=== PATIENT | female | born 1945 | race Caucasian/White ===

== ENCOUNTER 2023-01-07 07:22 | Outpatient (OUT) | payer MEDICARE, OTHER, SELFPAY ==
--- NOTE | 2023-01-07 | MM_ITS ---
Patient: SHAHNAZ ADAMES Exam Date: 01/07/2023 : 1945 Gender:F Ordering : DR Dang Shannon M.D. Admission #: [id number] Family : Order #: [id number] CLICK HERE TO VIEW EXAM RADIOLOGY REPORT PROCEDURE: MM TOMOSYNTHESIS SCREENING BI COMPARISON: MG MAMM SCREEN LUZ W CAD, 03/21/2018. MG MAMM SCREEN 3D LUZ CAD, 07/25/2020. INDICATIONS: screening mammogram Calculator Name NCI Breast Cancer Risk Assessment Tool 5 Year Breast Cancer Risk 3.50% Lifetime Breast Cancer Risk 7.40% Personal Breast Cancer No Personal Ovarian Cancer No Treatments None Family Cancers Mother with breast cancer at age 79. LOCATION: [facility] BREAST COMPOSITION: Heterogeneously dense,which may obscure small masses. FINDINGS: DIAGNOSTIC CATEGORY 1--NEGATIVE. NO CHANGE FROM COMPARISON ASSESSMENT. Scattered benign-appearing calcifications are present. RIGHT BREAST: No significant suspicious finding. LEFT BREAST: No significant suspicious finding. RECOMMENDATIONS: ROUTINE MAMMOGRAM AND CLINICAL EVALUATION IN 12 MONTHS. PLEASE NOTE: A NORMAL MAMMOGRAM DOES NOT EXCLUDE THE POSSIBILITY OF BREAST CANCER. A CLINICALLY SUSPICIOUS PALPABLE LUMP SHOULD BE BIOPSIED. Dictated by: Rangel Whitman MD on 01/07/2023 at 08:00 Approved by: Rangel Whitman MD on 01/07/2023 at 08:00
[2023-01-07 07:58] LABS: Hematocrit 44.2 % (36.0-48.0); Hemoglobin 14.5 g/dL (12.0-16.0); Mean Corpuscular HGB Conc 32.8 g/dL (29.9-35.2); Mean Corpuscular Volume 91.5 fL (81.0-99.0); Mean Platelet Volume 10.6 fL (9.5-13.5); Platelet Count 266 10^3/uL (150-450); Red Blood Count 4.83 10^6/uL (4.20-5.40); White Blood Count 21.1 10^3/uL (4.0-11.0)
[2023-01-07 08:50] LABS: Anion Gap 12.2; BUN Creatinine Ratio 21.1; Calcium 9.6 mg/dL (8.5-10.1); Carbon Dioxide 29.3 mmol/L (21.0-32.0); Chloride 101 mmol/L (98-107); Estimated GFR (African America >60 (>=60); Estimated GFR (Non-African Ame >60 (>=60); Glucose 108 mg/dL (74-106); Potassium 4.5 mmol/L (3.5-5.1); Sodium 138 mmol/L (136-145)
[2023-01-07 09:38] LABS: Eosinophils Absolute Manual 0.63 10^3/uL (0.00-0.70); Lymphocytes Absolute Manual 14.34 10^3/uL (1.20-3.80); Monocytes Absolute Manual 0.84 10^3/uL (0.30-0.80); Segmented Neut Absolute Manual 5.48 10^3/uL (1.4-6.5)
== END 2023-01-07 07:23 | disposition home or self-care (01) ==
LOC: MAMMO 07:22
PROVIDERS: PCP Family Medicine; Visit Provider Family Medicine
DX: I10 Essential (primary) hypertension (principal); Z12.31 Encounter for screening mammogram for malignant neoplasm of breast; Z80.3 Family history of malignant neoplasm of breast
CPT/HCPCS: 36415; 77063; 77067; 80048; 85027

== ENCOUNTER 2023-01-30 14:31 | Outpatient (OUT) | payer MEDICARE, OTHER, SELFPAY ==
[2023-01-30 15:34] LABS: TSH W/ REFLEX FT4 1.341
--- OUTSIDE RECORDS SUMMARY | 2023-03-12 15:49 | XMS_ITS | CCD ---
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 Stoker Installation Mechanic Name Role Phone MD Dang Anguiano Primary Care Provider [phone] DO Sherwin Yepez Attending Provider Dang Anguiano Unavailable REQUEST, DR SAUNDERS LISTED Admitting Unavaila ble REQUEST, DR SAUNDERS LISTED Consulting Unavaila ble REQUEST, DR SAUNDERS LISTED Attending Unavaila ble ANNMARIE, DR DANG De Primary Care Unavailable NATALIA PIMENTEL Admitting Unavailable NATALIA PIMENTEL Consulting Unavailable NATALIA PIMENTEL Attending Unavailable ANNMARIE, DR DANG De Primary Care Unavailable ANGUIANO, DR DANG De Primary Care Unavailable ANGUIANO, DR DANG De Consulting Unavailable ANGUIANO, DR DANG De Attending Unavailable ANGUIANO, DR DANG De Admitting Unavailable KRISHAN GONSALEZ Admitting Unavailable KRISHAN GONSALEZ Attending Unavailable TATE, DR JUMANA Lemus Consulting Unavailable ANGUIANO, DR DANG De Primary Care Unavailable KRISHAN GONSALEZ Consulting Unavailable Dang Anguiano Primary Care Unavailable Eugenio Beckett Referring Unavailable Sachin Perez II Attending Unavaila ble Ana [place] Admitting Unavaila ble Allergies Allergy Classification Reported Allergen(s) Allergy Type Date of Onset Reaction(s) Facility (8 sources) Amoxicillin; Translations: [Amoxicillin] Drug Allergy 01-29-20 18 hives, lips swell, Unknown [facility] (10 sources) Penicillin Drug Allergy Unknown [employer] Other (4 sources) Pseudoephedrine Drug Allergy 03-25-19 18 Unknown [employer] Other Medications Current Medications Medication Drug Class(es) Dates Sig (Normalized) Sig (Original) acetaminophen 325 mg oral tablet (1 source) Start: 10-17-2021 take 650 mg by mouth every four hours Acetaminophen Active 650 MG PO Q4H October 17, 2021 12:00am aspirin 81 mg oral tablet (6 sources) Platelet Aggregation Inhibitor, Nonsteroidal Anti-inflammatory Drug Start: 06-16-2021 take 81 mg by mouth once daily Aspirin Active 81 MG PO Daily June 16, 2021 12:00am take 1 tablet by sarah th every twenty-four hours Aspirin 81 MG 1 tablet Orally Once a day Active calcium carbonate 1500 mg / cholecalciferol 0.01 mg oral tablet (2 sources) Vitamin D Start: 10-06-2021 take 1 tablet by mouth twice daily Calcium Carbonate-Vitamin D3 (Calcium 600 + D(3)) 600 mg-10 mcg (400 unit) Tablet Active 1 TAB PO Twice daily October 06, 2021 12:00am fluticasone propionate 0.05 mg/actuat metered dose nasal spray (2 sources) Corticosteroid Start: 10-06-2021 Fluticasone Propionate Active 2 SPRAY INTRANASAL Daily October 06, 2021 12:00am losartan potassium 25 mg oral tablet (10 sources) Angiotensin 2 Receptor Abilio take 1 tablet by mouth once daily Losartan Potassium 25 MG TAKE 1 TABLET BY MOUTH EVERY DAY Active 24 hr metoprolol succinate 50 mg extended release oral tablet (2 sources) beta-Adrenergic Abilio Start: 06-16-2021 take 50 mg by mouth once daily Metoprolol Succinate Active 50 MG PO Daily June 16, 2021 12:00am Multivitamin (Multiple Vitamin) Tablet (1 source) Start: 06-16-2021 take 1 tablet by mouth once daily Multivitamin (Multiple Vitamin) Tablet Active 1 TAB PO Daily June 16, 2021 12:00am Multivitamin preparation (11 sources) Start: 06-16-2021 take 1 tablet by mouth once daily Multivitamin Active 1 TAB PO Daily June 16, 2021 12:00am take 1 tablet by mouth once wilber y Multivitamin - 1 tablet Orally Once a day Active omeprazole 20 mg delayed release oral capsule (3 sources) Proton Pump Inhibitor Start: 07-02-2022 take 1 capsule by mouth once daily Omeprazole 20 MG 1 capsule 30 minutes before morning meal Orally Once a day for 30 days Jun, Active raNITIdine (1 source) Histamine-2 Receptor Antagonist Zantac Active Completed/Discontinued Medications Medication Drug Class(es) Dates Sig (Normalized) Sig (Original) Calcium (6 sources) Phosphate Binder, Calcium Start: 06-16-2021 End: 10-06-2021 take 600 mg by mouth once daily Calcium Discontinued 600 MG PO Daily June 16, 2021 12:00am October 06, 2021 11:03am Calcium + D3 Act greer Problems Problem Classification Problem Date Documented Da te Episodic/Chronic Abdominal hernia (12 sources) Hiatal hernia; Translations: [Diaphragmatic hernia without obstruction or gangrene] 10-17-2021 Episodic Anxiety disorders (20 sources) Anxiety; Translations: [Anxiety disorder, unspecified] Chronic Bacterial infection; unspecified site (10 sources) Bacterial infectious disease; Translations: [Other specified bacterial agents as the cause of diseases classified elsewhere] Episodic Esophageal disorders (6 sources) Gastroesophageal reflux disease without esophagitis; Translations: [Gastro-esophageal reflux disease without esophagitis] Chronic Essential hypertension (16 sources) Essential hypertension; Translations: [Essential (primary) hypertension] Onset: 3 Chronic Leukemias (20 sources) Chronic lymphoid leukemia, disease; 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] Onset: 3 07-02-2021 Chronic Leukemias (1 source) Leukemias; 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] Onset: 3 Menopausal disorders (10 sources) Atrophy of vagina; 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 Osteoporosis (10 sources) Postmenopausal osteoporosis; Translations: [Age-related osteoporosis without current pathological fracture] Chronic Other connective tissue disease (1 source) Pain in unspecified limb Episodic Other gastrointestinal disorders (10 sources) Irritable bowel syndrome with diarrhea; Translations: [Irritable bowel syndrome with diarrhea] Chronic Other gastrointestinal disorders (1 source) Other specified diseases of intestine Episodic Other nervous system disorders (10 sources) Pain in limb; Translations: [Paresthesia of skin] Episodic Other nervous system disorders (7 sources) Paresthesia of skin; Translations: [PARESTHESIA OF SKIN] Onset: 3 Episodic Other nutritional; endocrine; and metabolic disorders (10 sources) Weight loss; Translations: [Abnormal weight loss] Episodic Other screening for suspected conditions (not mental disorders or infectious disease) (1 source) Encounter for screening mammogram for malignant neoplasm of breast Episodic Other skin disorders (1 source) Other hypertrophic disorders of the skin Episodic Other upper respiratory infections (10 sources) Bacterial sinusitis; Translations: [Chronic sinusitis, unspecified] Chronic Peripheral and visceral atherosclerosis (10 sources) Intermittent claudication; Translations: [Peripheral vascular disease, unspecified] Chronic Results Test Name Value Interpretation Reference Range Facil ity IMMUNOFIXATION ELEC, PROTEIN ELECon 07-09-2022 Albumin [Mass/Vol] 3.7 g/dL Normal 2.9-4.4 [facility] Comment on above: Performed By: #### V ITB12 #### [facility] [address] [address] [address] Mary Herzog Albumin/Globulin [Mass ratio] 1.5 {ratio} Normal 0.7-1 .7 [facility] Comment on above: Performed By: #### V ITB12 #### [facility] [address] [place] [address] Dr. Mary Herzog Pdduj-3-Mmdbpmuc 0.3 g/dL Normal 0.0-0.4 [facility] Comment on above: Performed By: #### V ITB12 #### [facility] [address] [address] [address] Mary Herzog Vezjh-8-Khgtvdqp 0.8 g/dL Normal 0.4-1.0 [facility] Comment on above: Performed By: #### V ITB12 #### [facility] [address] [place] [address] Dr. Mary Herzog Beta Globulin 0.9 g/dL Normal 0.7-1.3 [facility] Comment on above: Performed By: #### V ITB12 #### [facility] [address] [address] [address] Mary Herzog Gamma Globulin 0.6 g/dL Normal 0.4-1.8 [facility] Comment on above: Performed By: #### V ITB12 #### [facility] [address] [place] [address] Dr. Mary Herzog Globulin (S) [Mass/Vol] 2.6 g/dL Normal 2.2-3.9 [facility] Comment on above: Performed By: #### V ITB12 #### [facility] [address] [address] [address] Mary Herzog Immunofixation Result, Serum Comment Normal [facility] Comment on above: Result Comment: No m onoclonality detected. Performed By: #### V ITB12 #### [facility] [address] [address] [address] Mary Herzog Immunoglobulin A, Qn, Serum 102 mg/dL Normal 64-422 [facility] Comment on above: Performed By: #### V ITB12 #### [facility] [address] [address] [address] Mary Herzog Immunoglobulin G, Qn, Serum 635 mg/dL Normal 586-1602 [facility] Comment on above: Performed By: #### V ITB12 #### [facility] [address] [place] [address] Dr. Mary Herzog Immunoglobulin M, Qn, Serum 125 mg/dL Normal 26-217 [facility] Comment on above: Performed By: #### V ITB12 #### [facility] [address] [place] [address] Dr. Mary Herzog M-Nilesh Not Observed Normal Not Observed [facility] Comment on above: Performed By: #### V ITB12 #### [facility] [address] [place] [address] Dr. Mary Herzog PDF . Normal [facility] Comment on above: Performed By: #### V ITB12 #### [facility] [address] [place] [address] Dr. Mary Herzog Please note: Comment Normal [facility] Comment on above: Result Comment: Prot ein electrophoresis scan will follow via computer, mail, or customer specialist delivery. Performed By: #### V ITB12 #### [facility] [address] [place] [address] Dr. Mary Herzog Protein [Mass/Vol] 6.3 g/dL Normal 6.0-8.5 [facility] Comment on above: Performed By: #### V ITB12 #### [facility] [address] [place] [address] Dr. Mary Herzog VITAMIN B6on 07-09-2022 Vitamin B6 29.2 ug/L Normal 3.4-65.2 [facility] Comment on above: Result Comment: Defi ciency: <3.4 Marginal: 3.4 - 5.1 Adequate: >5.1 Performed By: #### V ITAB6 #### [facility] [address] [place] [address] Dr. Mary Herzog COPPER, SERUM or PLASMAon Copper, Serum 136 ug/dL Normal 80-158 [facility] Comment on above: Result Comment: Dete ction Limit = 5 Performed By: #### V ITB12 #### [facility] [address] [place] [address] Dr. Mary Herzog MO COMPREHENSIVE PROFILEon 07-07-2022 Anti-Centromere B Antibodies <0.2 Normal 0.0-0.9 [facility] Comment on above: Performed By: #### V ITB12 #### [facility] [address] [place] [address] Dr. Mary Herzog Anti-DNA (DS) Ab Qn 1 IU/mL Normal 0-9 [facility] Comment on above: Result Comment: Nega tive <5 Equivocal 5 - 9 Positive >9 Performed By: #### V ITB12 #### [facility] [address] [place] [address] Dr. Mary Herzog Anti-Mary-1 <0.2 Normal 0.0-0.9 [facility] Comment on above: Performed By: #### V ITB12 #### [facility] [address] [place] [address] Dr. Mary Herzog Antichromatin Antibodies <0.2 Normal 0.0-0.9 [facility] Comment on above: Performed By: #### V ITB12 #### [facility] [address] [place] [address] Dr. Mary Herzog ANTIRIBOSOMAL P AB <0.2 Normal 0.0-0.9 [facility] Comment on above: Performed By: #### V ITB12 #### [facility] [address] [place], [place] [address] Dr. Mary Herzog Antiscleroderma-70 Antibodies <0.2 Normal 0.0-0. 9 [facility] Comment on above: Performed By: #### V ITB12 #### [facility] [address] [place], [place] [address] Dr. Mary Herzog COMMENT Comment Normal [facility] Comment on above: Result Comment: Auto antibody Disease Association Condition Frequency Antinuclear Antibody, SLE, mixed connective Direct (MO-D) tissue diseases dsDNA SLE 40 - 60% Chromatin Drug induced SLE 90% SLE 48 - 97% SSA (Ro) SLE 25 - 35% Sjogren's Syndrome 40 - 70% Lupus 100% SSB (La) SLE 10% Sjogren's Syndrome 30% Sm (anti-Carlson) SLE 15 - 30% [employer] Mixed Connective Tissue Disease 95% (U1 nRNP, SLE 30 - 50% anti-ribonucleoprotein) Polymyositis and/or Dermatomyositis 20% Scl-70 (antiDNA Scleroderma (diffuse) 20 - 35% topoisomerase) Crest 13% Mary-1 Polymyositis and/or Dermatomyositis 20 - 40% Centromere B Scleroderma - Crest variant 80% Ribosomal P SLE 10 - 20% Performed By: #### V ITB12 #### [facility] [address] [place] [address] Dr. Mary Herzog [employer] Antibodies 0.2 AI Normal 0.0-0.9 [facility] Comment on above: Performed By: #### V ITB12 #### [facility] [address] [place] [address] Dr. Mary Buitragoogrmodesta'jodi Anti-SS-A <0.2 Normal 0.0-0.9 [facility] Comment on above: Performed By: #### V ITB12 #### [facility] [address] [place] [address] Dr. Mary Buitragoogrmodesta'jodi Anti-SS-B <0.2 Normal 0.0-0.9 [facility] Comment on above: Performed By: #### V ITB12 #### [facility] [address] [place] [address] Dr. Mary Carlson Antibodies <0.2 Normal 0.0-0.9 [facility] Comment on above: Performed By: #### V ITB12 #### [facility] [address] [place] [address] Dr. Mary Herzog Carlson/[employer] Antibodies <0.2 Normal 0.0-0.9 [facility] Comment on above: Performed By: #### V ITB12 #### [facility] [address] [place] [address] Dr. Mary Herzog CBC W MANUAL DIFFon 07-07-19 23 ATYPICAL LYMPH # Normal [facility] Comment on above: Performed By: #### C BCMAN #### [facility] [address] [place] [address] Dr. Mary Herzog ATYPICAL LYMPH % Normal [facility] Comment on above: Performed By: #### C BCMAN #### [facility] [address] [place] [address] Dr. Mary Herzog BAND # Normal 0.0-0.3 [facility] Comment on above: Performed By: #### C BCMAN #### [facility] [address] [place] [address] Dr. Mary Herzog BAND % Normal 0-5 [facility] Comment on above: Performed By: #### C BCMAN #### [facility] [address] [place] [address] Dr. Mary Herzog BASOM # 0.00 103/ul Normal 0.00-0.10 [facility] Comment on above: Performed By: #### C BCMAN #### [facility] [address] [place] [address] Dr. Mary Herzog BASOM % 0.0 % Critically low 0.2-2.0 [facility] Comment on above: Performed By: #### C BCMAN #### [facility] [address] [place] [address] Dr. Mary Herzog BLAST # Normal [facility] Comment on above: Performed By: #### C BCMAN #### [facility] [address] [place] [address] Dr. Mary Herzog BLAST % Normal [facility] Comment on above: Performed By: #### C BCCORY #### [facility] [address] [place] [address] Dr. Mary Herzog CORRECTED WBC Normal 4.0-11.0 [facility] Comment on above: Performed By: #### C BCMAN #### [facility] [address] [place] [address] Dr. Mary Herzog EOS # 0.49 103/ul Normal 0.00-0.70 [facility] Comment on above: Performed By: #### C BCCORY #### [facility] [address] [place] [address] Dr. Mary Herzog EOS% 3.0 % Normal 0.9-7.0 [facility] Comment on above: Performed By: #### C BCMAN #### [facility] [address] [place] [address] Dr. Mary Herzog HCT 45.1 % Normal 36.0-48.0 [facility] Comment on above: Performed By: #### C BCMAN #### [facility] [address] [place] [address] Dr. Mary Herzog HGB 14.5 g/dl Normal 12.0-16.0 [facility] Comment on above: Performed By: #### C BRODY #### [facility] [address] [address] [address] Mary Herzog LYMPHM # 10.89 103/ul Critically high 1.20-3.80 [facility] Comment on above: Performed By: #### C BRODY #### [facility] [address] [address] [address] Mary Herzog LYMPHM% 66.0 % Critically high 20.5-60.0 [facility] Comment on above: Performed By: #### C BRODY #### [facility] [address] [place] [address] Dr. Mary Herzog MCH 29.1 pg Normal 26.7-34.0 [facility] Comment on above: Performed By: #### C BRODY #### [facility] [address] [place] [address] Dr. Mary Herzog MCHC 32.2 g/dl Normal 29.9-35.2 [facility] Comment on above: Performed By: #### Chip SKINNER #### [facility] [address] [place] [address] Dr. Mary Herzog MCV 90.4 fL Normal 81.0-99.0 [facility] Comment on above: Performed By: #### Chip SKINNER #### [facility] [address] [place] [address] Dr. Mary Herzog METAMYELOCYTE # Normal [facility] Comment on above: Performed By: #### C BRODY #### [facility] [address] [place] [address] Dr. Mary Herzog METAMYELOCYTE % Normal [facility] Comment on above: Performed By: #### C BRODY #### [facility] [address] [place] [address] Dr. Mary Herzog MONOM# 0.82 103/ul Critically high 0.30-0.[address] [facility] Comment on above: Performed By: #### Chip SKINNER #### [facility] [address] [place] [address] Dr. Mary Herzog MONOM% 5.0 % Normal 1.7-12.0 [facility] Comment on above: Performed By: #### C BRODY #### [facility] [address] [place] [address] Dr. Mary Herzog MPV 10.6 fL Normal 9.5-13.5 [facility] Comment on above: Performed By: #### C BRODY #### [facility] [address] [place] [address] Dr. Mary Herzog MYELOCYTE # Normal [facility] Comment on above: Performed By: #### C BRODY #### [facility] [address] [place] [address] Dr. Mary Herzog MYELOCYTE % Normal [facility] Comment on above: Performed By: #### C BRODY #### [facility] [address] [place] [address] Dr. Mary Herzog NRBC Normal [facility] Comment on above: Performed By: #### C BRODY #### [facility] [address] [place] [address] Dr. Mary Herzog PLT 277 103/ul Normal 150-450 [facility] Comment on above: Performed By: #### C BRODY #### [facility] [address] [place] [address] Dr. Mary Herzog RBC 4.99 106/ul Normal 4.20-5.40 [facility] Comment on above: Performed By: #### C BRODY #### [facility] [address] [place] [address] Dr. Mary Herzog RDW 12.9 % Normal 11.0-15.0 [facility] Comment on above: Performed By: #### C BRODY #### [facility] [address] [place] [address] Dr. Mary Herzog SEG # 4.29 103/ul Normal 1.40-6.50 [facility] Comment on above: Performed By: #### C BORDY #### [facility] [address] [place] [address] Dr. Mary Herzog SEG % 26.0 % Critically low 43.0-75.0 [facility] Comment on above: Performed By: #### C BRODY #### [facility] [address] [address] [address] Mary Herzog WBC 16.5 103/ul Critically high 4.0-11.0 [facility] Comment on above: Performed By: #### C BRODY #### [facility] [address] [address] [address] Mary Herzog GLYCOHEMOGLOBIN A1Con 2022 ADA RECOMMENDATION SEE BELOW Normal [facility] Comment on above: Result Comment: ADA RECOMMENDED LIMIT 4.0 - 6.0 ADA THERAPEUTIC TARGET < 7.0 ACTION SUGGESTED > 7.0 Performed By: #### D ATA1C #### [facility] [address] [place] [address] Dr. Mary Herzog Glucose [Mass/Vol] 117 mg/dL Normal [facility] Comment on above: Performed By: #### D ATA1C #### [facility] [address] [place] [address] Dr. Mary Herzog HbA1c (Bld) [Mass fraction] 5.7 % Normal 4.5-6.2 [facility] Comment on above: Performed By: #### D ATA1C #### [facility] [address] [place] [address] Dr. Mary Herzog PROF 14(COMP METB)on 023 Albumin [Mass/Vol] 3.7 g/dL Normal 3.4-5.0 [facility] Comment on above: Performed By: #### C MP, TSH #### [facility] [address] [address] [address] Mary Herzog Albumin/Globulin [Mass ratio] 1.1 {ratio} Normal [facility] Comment on above: Performed By: #### C MP, TSH #### [facility] [address] [address] [address] Mary Herzog ALP [Catalytic activity/Vol] 80 U/L Normal 46-116 [facility] Comment on above: Performed By: #### C MP, TSH #### [facility] [address] [address] [address] Mary Herzog ALT [Catalytic activity/Vol] 24 U/L Normal 14-59 [facility] Comment on above: Performed By: #### C MP, TSH #### [facility] [address] [address] [address] Mary Herzog Anion gap [Moles/Vol] 12.6 mmol/L Normal Th [facility] Comment on above: Performed By: #### C MP, TSH #### [facility] [address] [address] [address] Mary Herzog AST [Catalytic activity/Vol] 21 U/L Normal 15-37 [facility] Comment on above: Performed By: #### C MP, TSH #### [facility] [address] [address] [address] Mary Herzog Bilirubin [Mass/Vol] 0.5 mg/dL Normal 0.2-1.0 [facility] Comment on above: Performed By: #### C MP, TSH #### [facility] [address] [address] [address] Mary Herzog Calcium [Mass/Vol] 9.4 mg/dL Normal 8.5-10.1 [facility] Comment on above: Performed By: #### C MP, TSH #### [facility] [address] [address] [address] Mary Herzog Chloride [Moles/Vol] 104 mmol/L Normal 98-107 [facility] Comment on above: Performed By: #### C MP, TSH #### [facility] [address] [address] [address] Mary Herzog CO2 [Moles/Vol] 29.5 mmol/L Normal 21.0-32.0 [facility] Comment on above: Performed By: #### C MP, TSH #### [facility] [address] [address] [address] Mary Herzog Creatinine [Mass/Vol] 1.03 mg/dL Critically high 0.55-1.02 [facility] Comment on above: Performed By: #### C MP, TSH #### [facility] [address] [address] [address] Mary Herzog EGFR-AF RUSSIAN >60 Normal >=60 [facility] Comment on above: Performed By: #### C MP, TSH #### [facility] [address] [address] [address] Mary Herzog EGFR-NON AF RUSSIAN 52 mL/min/1.73m2 Critically low >=60 [facility] Comment on above: Performed By: #### C MP, TSH #### [facility] [address] [address] [address] Mary Herzog Globulin (S) [Mass/Vol] 3.4 g/dL Normal T [facility] Comment on above: Performed By: #### C MP, TSH #### [facility] [address] [address] [address] Mary Herzog Glucose [Mass/Vol] 104 mg/dL Normal 74-106 [facility] Comment on above: Performed By: #### C MP, TSH #### [facility] [address] [address] [address] Mary Herzog Potassium [Moles/Vol] 4.1 mmol/L Normal 3.5-5.1 [facility] Comment on above: Performed By: #### C MP, TSH #### [facility] [facility] [address] [address] [address] Mary Herzog Protein [Mass/Vol] 7.1 g/dL Normal 6.4-8.2 [facility] Comment on above: Performed By: #### C MP, TSH #### [facility] [address] [address] [address] Mary Herzog Sodium [Moles/Vol] 142 mmol/L Normal 136-145 [facility] Comment on above: Performed By: #### C MP, TSH #### [facility] [address] [address] [address] Mary Herzog Urea nitrogen [Mass/Vol] 19.0 mg/dL Critically high 7.0-18 .0 [facility] Comment on above: Performed By: #### C MP, TSH #### [facility] [address] [address] [address] Mary Herzog Urea nitrogen/Creatinine [Mass ratio] 18.4 mg/mg Normal [facility] Comment on above: Performed By: #### C MP, TSH #### [facility] [address] [address] [address] Mary Herzog TSHon 07-06-2022 TSH 1.684 uIU/mL Normal 0.358-3.740 [facility] Comment on above: Performed By: #### C MP, TSH #### [facility] [address] [address] [address] Mary Herzog VITAMIN B12on 07-06-2022 Cobalamin (Vitamin B12) [Mass/Vol] 1021.0 pg/mL Critically high 193.0-986.[address] [facility] Comment on above: Performed By: #### V ITB12 #### [facility] [address] [address] [address] Mary Herzog Comprehensive Metabolic Pane sandi 06-13-2022 Albumin [Mass/Vol] 4.4 g/dL Normal 3.5-5.7 [facility] Comment on above: Performed By: #### C MP, SCAN CBC, LDH #### [facility] [address] [place] [address] [place] Albumin/Globulin [Mass ratio] 2.1 {ratio} Normal [facility] Comment on above: Performed By: #### C MP, SCAN CBC, LDH #### [facility] [address] [id number] [place] ALP [Catalytic activity/Vol] 66 U/L Normal 34-104 [facility] Comment on above: Performed By: #### C MP, SCAN CBC, LDH #### [facility] [address] [id number] [place] ALT [Catalytic activity/Vol] 13 U/L Normal 7-52 [facility] Comment on above: Performed By: #### C MP, SCAN CBC, LDH #### [facility] [address] Anion gap [Moles/Vol] 11.0 mmol/L Normal 6.0-15.0 [facility] Comment on above: Performed By: #### C MP, SCAN CBC, LDH #### [facility] [address] AST [Catalytic activity/Vol] 20 U/L Normal 13-39 [facility] Comment on above: Performed By: #### C MP, SCAN CBC, LDH #### [facility] [address] Bilirubin [Mass/Vol] 0.4 mg/dL Normal 0.3-1.0 [facility] Comment on above: Performed By: #### C MP, SCAN CBC, LDH #### [facility] [address] Calcium [Mass/Vol] 9.6 mg/dL Normal 8.6-10.3 [facility] Comment on above: Performed By: #### C MP, SCAN CBC, LDH #### [facility] [address] [place] [address] [place] Chloride [Moles/Vol] 101 mmol/L Normal 98-107 [facility] Comment on above: Performed By: #### C MP, SCAN CBC, LDH #### [facility] [address] CO2 [Moles/Vol] 31.1 mmol/L High 21.0-31.0 [facility] Comment on above: Performed By: #### C MP, SCAN CBC, LDH #### [facility] [address] [place] [address] [place] Creatinine [Mass/Vol] 1.05 mg/dL Normal 0.60-1.20 [facility] Comment on above: Performed By: #### C MP, SCAN CBC, LDH #### [facility] [address] [place] [address] [place] Creatinine Clr Calc Pharmacy 41.79 Normal [facility] Comment on above: Performed By: #### C MP, SCAN CBC, LDH #### [facility] [address] [place] [address] GFR/1.73 sq M.predicted MDRD (S/P/Bld) [Vol rate/Area] 55.410 mL/min/{1.73_m2} Normal [facility] Comment on above: Performed By: #### C MP, SCAN CBC, LDH #### [facility] [address] Globulin (S) [Mass/Vol] 2.1 g/dL Normal [facility] Comment on above: Performed By: #### C MP, SCAN CBC, LDH #### [address] Glucose [Mass/Vol] 108 mg/dL Normal 74-109 [facility] Comment on above: Result Comment: [facility] Glucose Reference Range is dependent on time and content of last meal. Glucose of more than 200 mg/dL in a nonstressed, ambulatory subject supports the diagnosis of Diabetes Mellitus. ADA recommended reference range Performed By: #### C MP, SCAN CBC, LDH #### [address] Potassium [Moles/Vol] 4.1 mmol/L Normal 3.5-5.1 [facility] Comment on above: Performed By: #### C MP, SCAN CBC, LDH #### [address] Protein [Mass/Vol] 6.5 g/dL Normal 6.4-8.9 [facility] Comment on above: Performed By: #### C MP, SCAN CBC, LDH #### [place] [address] [place] Sodium [Moles/Vol] 139 mmol/L Normal 136-145 [facility] Comment on above: Performed By: #### C MP, SCAN CBC, LDH #### [address] Urea nitrogen [Mass/Vol] 19 mg/dL Normal 7-25 [facility] Comment on above: Performed By: #### C MP, SCAN CBC, LDH #### [address] [place] [address] [place] LDH Lactate Dehydrogenaseon 06-13-2022 LDH Lactate Dehydrogenase 150 U/L Normal 140-271 [facility] Comment on above: Result Comment: PERF ORMED BY: [place] [address] PATHOLOGIST AGRICULTURAL RESEARCH ENGINEER TOMAS LUCIA M.D. Performed By: #### C MP, SCAN CBC, LDH #### [address] Scan and CBCon 06-13-2022 Anisocytosis Ql (Bld) Slight Normal [facility] Comment on above: Performed By: #### C MP, SCAN CBC, LDH #### [address] Basophils (Bld) [#/Vol] 0.1 10*3/uL Normal 0.0-0.2 [facility] Comment on above: Performed By: #### C MP, SCAN CBC, LDH #### [address] Basophils/100 WBC (Bld) 0.6 % Normal . [facility] Comment on above: Performed By: #### C MP, SCAN CBC, LDH #### [address] Eosinophils (Bld) [#/Vol] 0.4 10*3/uL Normal 0.0-0.45 [facility] Comment on above: Performed By: #### C MP, SCAN CBC, LDH #### [address] Eosinophils/100 WBC (Bld) 2.2 % Normal . [facility] Comment on above: Performed By: #### C MP, SCAN CBC, LDH #### [address] Erythrocyte distribution wid th (RBC) [Ratio] 13.3 % Normal 11.9-15.3 [facility] Comment on above: Performed By: #### C MP, SCAN CBC, LDH #### [address] Hematocrit (Bld) [Volume fraction] 43.4 % Normal 34.0-46.4 [facility] Comment on above: Performed By: #### C MP, SCAN CBC, LDH #### [facility] [address] Hemoglobin (Bld) [Mass/Vol] 14.3 g/dL Normal 11.8-15. 4 [facility] Comment on above: Performed By: #### C MP, SCAN CBC, LDH #### [address] Lymphocytes (Bld) [#/Vol] 12.4 10*3/uL High 1.00-4.8 [facility] Comment on above: Performed By: #### C MP, SCAN CBC, LDH #### [address] Lymphocytes/100 WBC (Bld) 67.2 % Normal . [facility] Comment on above: Performed By: #### C MP, SCAN CBC, LDH #### [address] MCH (RBC) [Entitic mass] 29.6 pg Normal 24.7-34.3 [facility] Comment on above: Performed By: #### C MP, SCAN CBC, LDH #### [address] MCV (RBC) [Entitic vol] 89.9 fL Normal 80-100 [facility] Comment on above: Performed By: #### C MP, SCAN CBC, LDH #### [address] Mean Corpuscular HGB Conc 33.0 g/dL Normal 32.0-35.0 [facility] Comment on above: Performed By: #### C MP, SCAN CBC, LDH #### [address] Microcytosis Slight Normal [facility] Comment on above: Performed By: #### C MP, SCAN CBC, LDH #### [facility] [address] [place] [address] [place] Monocytes (Bld) [#/Vol] 0.8 10*3/uL Normal 0.0-0.8 [facility] Comment on above: Performed By: #### C MP, SCAN CBC, LDH #### [facility] [address] Monocytes/100 WBC (Bld) 4.6 % Normal . [facility] Comment on above: Performed By: #### C MP, SCAN CBC, LDH #### [facility] [address] [place] [address] [place] Neutrophils (Bld) [#/Vol] 4.7 10*3/uL Normal 1.8-7.7 [facility] Comment on above: Performed By: #### C MP, SCAN CBC, LDH #### [address] Neutrophils/100 WBC (Bld) 25.4 % Normal . [facility] Comment on above: Performed By: #### C MP, SCAN CBC, LDH #### [address] NRBC% 0.1 /100{WBC} Normal 0-0.5 [facility] Comment on above: Performed By: #### C MP, SCAN CBC, LDH #### [address] Platelet Estimate Normal Normal Normal [facility] Comment on above: Performed By: #### C MP, SCAN CBC, LDH #### [facility] [address] [place] [address] [place] Platelet mean volume (Bld) [Entitic vol] 9.5 fL Normal 6.3-10.7 [facility] Comment on above: Performed By: #### C MP, SCAN CBC, LDH #### [address] Platelet Morphology Normal Normal Normal [facility] Comment on above: Result Comment: PERF ORMED BY: [place] [address] PATHOLOGIST AGRICULTURAL RESEARCH ENGINEER TOMAS LUCIA M.D. Performed By: #### C MP, SCAN CBC, LDH #### [address] Platelets (Bld) [#/Vol] 240 10*3/uL Normal 150-450 [facility] Comment on above: Performed By: #### C MP, SCAN CBC, LDH #### [address] RBC (Bld) [#/Vol] 4.83 10*6/uL Normal 3.60-5.[address] [facility] Comment on above: Performed By: #### C MP, SCAN CBC, LDH #### [address] Smudge Cells Moderate Normal [facility] Comment on above: Performed By: #### C MP, SCAN CBC, LDH #### [address] WBC (Bld) [#/Vol] 18.4 10*3/uL High 3.8-11.[address] [facility] Comment on above: Performed By: #### C MP, SCAN CBC, LDH #### [address] CBC AUTO DIFFon 05-11-2022 BASO # 0.1 103/ul Normal 0.0-0.1 [facility] Comment on above: Performed By: #### C BC #### [facility] [address] [place] [address] Dr. Mary Herzog Basophils/100 WBC (Bld) 0.6 % Normal 0.2-2.0 [facility] Comment on above: Performed By: #### C BC #### [facility] [address] [place] [address] Dr. Mary Herzog EO # 0.3 103/ul Normal 0.0-0.7 [facility] Comment on above: Performed By: #### C BC #### [facility] [address] [place] [address] Dr. Mary Herzog Eosinophils/100 WBC (Bld) 1.9 % Normal 0.9-7.0 [facility] Comment on above: Performed By: #### C BC #### [facility] [address] [place] [address] Dr. Mary Herzog Erythrocyte distribution wid th (RBC) [Ratio] 13.1 % Normal 11.0-15.[address] [facility] Comment on above: Performed By: #### C BC #### [facility] [address] [place] [address] Dr. Mary Herzog Hematocrit (Bld) [Volume fraction] 46.7 % Normal 3 6.0-48.0 [facility] Comment on above: Performed By: #### C BC #### [facility] [address] [place] [address] Dr. Mary Herzog Hemoglobin (Bld) [Mass/Vol] 15.1 g/dL Normal 12.0-16. 0 [facility] Comment on above: Performed By: #### C BC #### [facility] [address] [place] [address] Dr. Mary Herzog IG # 0.05 10e3/ul Critically high 0.00-0.03 [facility] Comment on above: Performed By: #### C BC #### [facility] [address] [place] [address] Dr. Mary Herzog IG % 0.3 % Normal 0.0-0.5 [facility] Comment on above: Performed By: #### C BC #### [facility] [address] [place] [address] Dr. Mary Herzog LYMPH # 10.4 103/ul Critically high 1.2-3.[address] [facility] Comment on above: Performed By: #### C BC #### [facility] [address] [place] [address] Dr. Mary Herzog Lymphocytes/100 WBC (Bld) 56.5 % Normal 20.5-60.0 [facility] Comment on above: Performed By: #### C BC #### [facility] [address] [place] [address] Dr. Mary Herzog MANUAL DIFF REQ NO Normal [facility] Comment on above: Performed By: #### C BC #### [facility] [address] [place] [address] Dr. Mary Herzog MCH (RBC) [Entitic mass] 29.5 pg Normal 26.7-34.0 [facility] Comment on above: Performed By: #### C BC #### [facility] [address] [place] [address] Dr. Mary Herzog MCHC (RBC) [Mass/Vol] 32.3 g/dL Normal 29.9-35.2 [facility] Comment on above: Performed By: #### C BC #### [facility] [address] [place] [address] Dr. Mary Herzog MCV (RBC) [Entitic vol] 91.2 fL Normal 81.0-99.0 [facility] Comment on above: Performed By: #### C BC #### [facility] [address] [place] [address] Dr. Mary Herzog MONO # 0.8 103/ul Normal 0.3-0.8 [facility] Comment on above: Performed By: #### C BC #### [facility] [address] [place] [address] Dr. Mary Herzog Monocytes/100 WBC (Bld) 4.4 % Normal 1.7-12.0 [facility] Comment on above: Performed By: #### C BC #### [facility] [address] [place] [address] Dr. Mary Herzog NEUT # 6.7 103/ul Critically high 1.4-6.5 [facility] Comment on above: Performed By: #### C BC #### [facility] [address] [place] [address] Dr. Mary Herzog Neutrophils/100 WBC (Bld) 36.3 % Critically low 43.0-7 5.0 [facility] Comment on above: Performed By: #### C BC #### [facility] [address] [place] [address] Dr. Mary Herzog Platelet mean volume (Bld) [ Entitic vol] 10.9 fL Normal 9.5-13.[address] [facility] Comment on above: Performed By: #### C BC #### [facility] [address] [place] [address] Dr. Mary Herzog PLT 279 103/ul Normal 150-450 [facility] Comment on above: Performed By: #### C BC #### [facility] [address] [place] [address] Dr. Mary Herzog RBC 5.12 106/ul Normal 4.20-5.40 [facility] Comment on above: Performed By: #### C BC #### [facility] [address] [place] [address] Dr. Mary Herzog WBC 18.3 103/ul Critically high 4.0-11.0 [facility] Comment on above: Performed By: #### C BC #### [facility] [address] [place] [address] Dr. Mary Herzog FERRITINon 05-11-2022 Ferritin [Mass/Vol] 97.0 ng/mL Normal 8.0-252.0 [facility] Comment on above: Performed By: #### F ERR #### [facility] [address] [place] [address] Dr. Mary Herzog PROF CHEM 8 (BAS METB)on Anion gap [Moles/Vol] 11.7 mmol/L Normal [facility] Comment on above: Performed By: #### V ITB12 #### [facility] [address] [place] [address] Dr. Mary Herzog Calcium [Mass/Vol] 10.1 mg/dL Normal 8.5-10.1 [facility] Comment on above: Performed By: #### V ITB12 #### [facility] [address] [place] [address] Dr. Mary Herzog Chloride [Moles/Vol] 101 mmol/L Normal 98-107 [facility] Comment on above: Performed By: #### V ITB12 #### [facility] [address] [address] [address] Mary Herzog CO2 [Moles/Vol] 30.7 mmol/L Normal 21.0-32.0 [facility] Comment on above: Performed By: #### V ITB12 #### [facility] [address] [address] [address] Mary Herzog Creatinine [Mass/Vol] 0.97 mg/dL Normal 0.55-1.02 [facility] Comment on above: Performed By: #### V ITB12 #### [facility] [address] [address] [address] Mary Herzog EGFR-AF RUSSIAN >60 Normal >=60 [facility] Comment on above: Performed By: #### V ITB12 #### [facility] [address] [address] [address] Mary Herzog EGFR-NON AF RUSSIAN 56 mL/min/1.73m2 Critically low >=60 [facility] Comment on above: Performed By: #### V ITB12 #### [facility] [address] [address] [address] Mary Herzog Glucose [Mass/Vol] 138 mg/dL Critically high 74-106 [facility] Comment on above: Performed By: #### V ITB12 #### [facility] [address] [address] [address] Mary Herzog Potassium [Moles/Vol] 4.4 mmol/L Normal 3.5-5.1 [facility] Comment on above: Performed By: #### V ITB12 #### [facility] [address] [address] [address] Mary Herzog Sodium [Moles/Vol] 139 mmol/L Normal 136-145 [facility] Comment on above: Performed By: #### V ITB12 #### [facility] [address] [address] [address] Mary Herzog Urea nitrogen [Mass/Vol] 21.0 mg/dL Critically high 7.0-18 .0 [facility] Comment on above: Performed By: #### V ITB12 #### [facility] [address] [place], [place] [address] Dr. Mary Herzog Urea nitrogen/Creatinine [Mass ratio] 21.6 mg/mg Normal [facility] Comment on above: Performed By: #### V ITB12 #### [facility] [address] [place], [place] [address] Dr. Mary Herzog TSHon 05-11-2022 TSH 1.796 uIU/mL Normal 0.358-3.740 [facility] Comment on above: Performed By: #### V ITB12 #### [facility] [address] [place], [place] [address] Dr. Mary Herzog Basophils Auto (Bld) [#/Vol] Ordered By: Sherwin Yepez on 10-17-2021 Basophils (Bld) [#/Vol] 0.1 10*3/uL 0.0-0.2 [facility] Basophils/100 WBC Auto (Bld) Ordered By: Sherwin Yepez on 10-17-2021 Basophils/100 WBC (Bld) 0.4 % . [facility] Blood hemoglobin measurement (mass/volume)Ordered By: Sherwin Yepez on 10-17-2021 Hemoglobin (Bld) [Mass/Vol] 14.4 g/dL 11.8-15. 4 [facility] Blood leukocytes automated c ount (number/volume)Ordered By: Sherwin Yepez on 10-17-2021 WBC (Bld) [#/Vol] 19.6 10*3/uL 4.5-11.[address] [facility] Creatinine and Glomerular fi ltration rate.predicted panel (S/P/Bld)Ordered By: Sherwin Yepez on 10-17-2021 Creatinine [Mass/Vol] 0.97 mg/dL 0.44-1.03 [facility] Eosinophils Auto (Bld) [#/Vo l]Ordered By: Sherwin Yepez on 10-17-2021 Eosinophils (Bld) [#/Vol] 0.0 10*3/uL 0.0-0.45 [facility] Eosinophils/100 WBC Auto (Bl d)Ordered By: Sherwin Yepez on 10-17-2021 Eosinophils/100 WBC (Bld) 0.0 % . [facility] Erythrocyte distribution wid th Auto (RBC) [Ratio]Ordered By: Sherwin Yepez on 10-17-2021 Erythrocyte distribution wid th (RBC) [Ratio] 13.8 % 11.9-15.3 [facility] Estimated glomerular filtrat ion rate (GFR) non- AmericanOrdered By: Sherwin Yepez on 10-17-2021 GFR/1.73 sq M.predicted cherrie g non-blacks MDRD (S/P/Bld) [Vol rate/Area] 56 mL/Min [facility] Hematocrit Auto (Bld) [Volum e fraction]Ordered By: Sherwin Yepez on 10-17-2021 Hematocrit (Bld) [Volume fraction] 43.4 % 3 4.0-46.4 [facility] - Hematology and Cell countsOrdered By: Sherwin Yepez on 10-17-2021 Nucleated RBC/100 WBC (Bld) [Ratio] 0.0 % 0-0.5 [facility] Lymphocytes Auto (Bld) [#/Vo l]Ordered By: Sherwin Yepez on 10-17-2021 Lymphocytes (Bld) [#/Vol] 5.7 10*3/uL 1.00-4.8 [facility] Lymphocytes/100 WBC Auto (Bl d)Ordered By: Sherwin Yepez on 10-17-2021 Lymphocytes/100 WBC (Bld) 28.9 % . [facility] MCH Auto (RBC) [Entitic mass ]Ordered By: Sherwin Yepez on 10-17-2021 MCH (RBC) [Entitic mass] 30.0 pg 24.7-34.3 [facility] MCHC Auto (RBC) [Mass/Vol]Or dered By: Sherwin Yepez on 10-17-2021 MCHC (RBC) [Mass/Vol] 33.0 g/dL 32.0-35.0 [facility] MCV Auto (RBC) [Entitic vol] Ordered By: Sherwin Yepez on 10-17-2021 MCV (RBC) [Entitic vol] 90.7 fL 80-100 [facility] Monocytes Auto (Bld) [#/Vol] Ordered By: Sherwin Yepez on 10-17-2021 Monocytes (Bld) [#/Vol] 1.2 10*3/uL 0.0-0.8 [facility] Monocytes/100 WBC Auto (Bld) Ordered By: Sherwin Yepez on 10-17-2021 Monocytes/100 WBC (Bld) 5.9 % . [facility] Neutrophils Auto (Bld) [#/Vo l]Ordered By: Sherwin Yepez on 10-17-2021 Neutrophils (Bld) [#/Vol] 12.7 10*3/uL 1.8-7.7 [facility] Neutrophils/100 WBC Auto (Bl d)Ordered By: Sherwin Yepez on 10-17-2021 Neutrophils/100 WBC (Bld) 64.8 % . [facility] No Panel InformationOrdered By: Sherwin Yepez on 10-17-2021 Estimated GFR () > 60 mL/Min [facility] Comment on above: GFR estimated refere nce range: According to KDOQI guidelines, <60 ml/min/1.73m2 is sufficient to diagnose a patient with chronic kidney disease. Pharmacy Creatinine Clearance (Chem 42.09 [facility] Platelet Estimate Normal Normal [facility] Platelet Morphology Comment Normal Normal [facility] Platelet mean volume Auto (B ld) [Entitic vol]Ordered By: Sherwin Yepez on 10-17-2021 Platelet mean volume (Bld) [Entitic vol] 9.8 fL 6.3-10.7 [facility] Platelets Auto (Bld) [#/Vol] Ordered By: Sherwin Yepez on 10-17-2021 Platelets (Bld) [#/Vol] 238 10*3/uL 150-450 [facility] RBC Auto (Bld) [#/Vol]Ordere d By: Sherwin Yepez on 10-17-2021 RBC (Bld) [#/Vol] 4.79 10*6/uL 3.60-5.[address] [facility] RBC morphologyOrdered By: Wolf Yepez on 10-17-2021 RBC morphology finding Nom (Bld) N/A [facility] Serum or plasma chloride soham surement (moles/volume)Ordered By: Sherwin Yepez on 10-17-2021 Chloride [Moles/Vol] 100 mmol/L 95-114 [facility] Serum or plasma potassium me asurement (moles/volume)Ordered By: Sherwin Yepez on 10-17-2021 Potassium [Moles/Vol] 4.9 mmol/L 3.5-5.1 [facility] Serum or plasma sodium measu rement (moles/volume)Ordered By: Sherwin Yepez on 10-17-2021 Sodium [Moles/Vol] 133 mmol/L 136-146 [facility] Serum or plasma total carbon dioxide measurement (moles/volume)Ordered By: Sherwin Yepez on 10-17-2021 CO2 [Moles/Vol] 25.3 mmol/L 22.0-30.0 [facility] Serum or plasma urea nitroge n measurement (mass/volume)Ordered By: Sherwin Yepez on 10-17-2021 Urea nitrogen [Mass/Vol] 16 mg/dL 9-23 [facility] COVID-19 Positive/NegativeOr dered By: Sherwin Yepez on 10-12-2021 SARS-CoV-2 (COVID-19) N gene RUSSEL+probe Ql (Resp) Negative Negative [facility] Comment on above: Testing for SARS-CoV -2 by RT-PCR This test was developed and its performance characteristics determined by [employer] ([employer]) and validated at the [facility]. This test has not been FDA cleared or approved. This test has been authorized by FDA under an Emergency Use Authorization (EUA). This test has been validated in accordance with the FDA's Guidance Document (Policy for Diagnostics Testing in Laboratories Certified to Perform High Complexity Testing under CLIA prior to Emergency Use Authorization for Coronavirus Disease-2019 during the Public Health Emergency) issued on June 25, 2019. This test is only authorized for the duration of time the declaration that circumstances exist justifying the authorization of the emergency use of in vitro diagnostic tests for detection of SARS-CoV-2 virus and/or diagnosis of COVID-19 infection under section 564(b)(1) of the Act, 21 U.S.C. 360bbb-3(b)(1), unless the authorization is terminated or revoked sooner. Basophils Auto (Bld) [#/Vol] Ordered By: Sherwin Yepez on 10-06-2021 Basophils (Bld) [#/Vol] N/A [facility] Basophils/100 WBC Auto (Bld) Ordered By: Sherwin Yepez on 10-06-2021 Basophils/100 WBC (Bld) N/A [facility] Basophils/100 WBC (Bld) 1 % 0-2 [facility] Blood hemoglobin measurement (mass/volume)Ordered By: Sherwin Yepez on 10-06-2021 Hemoglobin (Bld) [Mass/Vol] 14.7 g/dL 11.8-15. 4 [facility] Blood leukocytes automated c ount (number/volume)Ordered By: Sherwin Yepez on 10-06-2021 WBC (Bld) [#/Vol] 17.0 10*3/uL 4.5-11.[address] [facility] Creatinine and Glomerular fi ltration rate.predicted panel (S/P/Bld)Ordered By: Sherwin Yepez on 10-06-2021 Creatinine [Mass/Vol] 0.89 mg/dL 0.44-1.03 [facility] Eosinophils Auto (Bld) [#/Vo l]Ordered By: Sherwin Yepez on 10-06-2021 Eosinophils (Bld) [#/Vol] N/A [facility] Eosinophils/100 WBC Auto (Bl d)Ordered By: Sherwin Yepez on 10-06-2021 Eosinophils/100 WBC (Bld) N/A [facility] Erythrocyte distribution wid th Auto (RBC) [Ratio]Ordered By: Sherwin Yepez on 10-06-2021 Erythrocyte distribution wid th (RBC) [Ratio] 13.9 % 11.9-15.3 [facility] Estimated glomerular filtrat ion rate (GFR) non- AmericanOrdered By: Sherwin Yepez on 10-06-2021 GFR/1.73 sq M.predicted cherrie g non-blacks MDRD (S/P/Bld) [Vol rate/Area] > 60 mL/Min [facility] Hematocrit Auto (Bld) [Volum e fraction]Ordered By: Sherwin Yepez on 10-06-2021 Hematocrit (Bld) [Volume fraction] 45.0 % 3 4.0-46.4 [facility] - Hematology and Cell countsOrdered By: Shewrin Yepez on 10-06-2021 Nucleated RBC/100 WBC (Bld) [Ratio] 0.1 % 0-0.5 [facility] Lymphocytes Auto (Bld) [#/Vo l]Ordered By: Sherwin Yepez on 10-06-2021 Lymphocytes (Bld) [#/Vol] N/A [facility] Lymphocytes/100 WBC Auto (Bl d)Ordered By: Sherwin Yepez on 10-06-2021 Lymphocytes/100 WBC (Bld) N/A [facility] Lymphocytes/100 WBC (Bld) 43 % 18-42 [facility] Lymphocytes/100 WBC Manual c nt (Bld)Ordered By: Sherwin Yepez on 10-06-2021 Lymphocytes/100 WBC (Bld) 21 % 0-12 [facility] MCH Auto (RBC) [Entitic mass ]Ordered By: Sherwin Yepez on 10-06-2021 MCH (RBC) [Entitic mass] 29.8 pg 24.7-34.3 [facility] MCHC Auto (RBC) [Mass/Vol]Or dered By: Sherwin Yepez on 10-06-2021 MCHC (RBC) [Mass/Vol] 32.7 g/dL 32.0-35.0 [facility] MCV Auto (RBC) [Entitic vol] Ordered By: Sherwin Yepez on 10-06-2021 MCV (RBC) [Entitic vol] 90.9 fL 80-100 [facility] Monocyte %Ordered By: Sherwin mcclendon on 10-06-2021 Monocytes/100 WBC (Bld) 2 % 1-3 [facility] Monocytes Auto (Bld) [#/Vol] Ordered By: Sherwin Yepez on 10-06-2021 Monocytes (Bld) [#/Vol] N/A [facility] Monocytes/100 WBC Auto (Bld) Ordered By: Sherwin Yepez on 10-06-2021 Monocytes/100 WBC (Bld) N/A [facility] Monocytes/100 WBC Manual cnt (Bld)Ordered By: Sherwin Yepez on 10-06-2021 Monocytes/100 WBC (Bld) 6 % 2-11 [facility] Neutrophils Auto (Bld) [#/Vo l]Ordered By: Sherwin Yepez on 10-06-2021 Neutrophils (Bld) [#/Vol] N/A [facility] Neutrophils/100 WBC Auto (Bl d)Ordered By: Sherwin Yepez on 10-06-2021 Neutrophils/100 WBC (Bld) N/A [facility] No Panel InformationOrdered By: Sherwin Yepez on 10-06-2021 Estimated GFR () > 60 mL/Min [facility] Comment on above: GFR estimated refere nce range: According to KDOQI guidelines, <60 ml/min/1.73m2 is sufficient to diagnose a patient with chronic kidney disease. Pharmacy Creatinine Clearance (Chem N/A [facility] Platelet Estimate Normal Normal [facility] Platelet Morphology Comment Normal Normal [facility] Platelet mean volume Auto (B ld) [Entitic vol]Ordered By: Sherwin Yepez on 10-06-2021 Platelet mean volume (Bld) [Entitic vol] 9.2 fL 6.3-10.7 [facility] Platelets Auto (Bld) [#/Vol] Ordered By: Sherwin Yepez on 10-06-2021 Platelets (Bld) [#/Vol] 223 10*3/uL 150-450 [facility] RBC Auto (Bld) [#/Vol]Ordere d By: Sherwin Yepez on 10-06-2021 RBC (Bld) [#/Vol] 4.95 10*6/uL 3.60-5.[address] [facility] RBC morphologyOrdered By: Wolf Yepez on 10-06-2021 RBC morphology finding Nom (Bld) Normal [facility] Segmented neutrophils/100 WB C Manual cnt (Bld)Ordered By: Sherwin Yepez on 10-06-2021 Segmented neutrophils/100 WBC (Bld) 27 % 50-70 [facility] Serum or plasma calcium tamie urement (mass/volume)Ordered By: Sherwin Yepez on 10-06-2021 Calcium [Mass/Vol] 9.5 mg/dL 8.2-10.2 [facility] Serum or plasma chloride soham surement (moles/volume)Ordered By: Sherwin Yepez on 10-06-2021 Chloride [Moles/Vol] 99 mmol/L 95-114 [facility] Serum or plasma glucose tamie urement (mass/volume)Ordered By: Sherwin Yepez on 10-06-2021 Glucose [Mass/Vol] 98 mg/dL 70-100 [facility] Comment on above: ADA recommended refe rence range Random Glucose Reference Range is dependent on time and content of last meal. Glucose of more than 200 mg/dL in a nonstressed, ambulatory subject supports the diagnosis of Diabetes Mellitus. Serum or plasma potassium me asurement (moles/volume)Ordered By: Sherwin Yepez on 10-06-2021 Potassium [Moles/Vol] 4.7 mmol/L 3.5-5.1 [facility] Serum or plasma sodium measu rement (moles/volume)Ordered By: Sherwin Yepez on 10-06-2021 Sodium [Moles/Vol] 135 mmol/L 136-146 [facility] Serum or plasma total carbon dioxide measurement (moles/volume)Ordered By: Sherwin Yepez on 10-06-2021 CO2 [Moles/Vol] 27.3 mmol/L 22.0-30.0 [facility] Serum or plasma urea nitroge n measurement (mass/volume)Ordered By: Sherwin Yepez on 10-06-2021 Urea nitrogen [Mass/Vol] 19 mg/dL - [facility] CNPFarida 12-01-2020 PAULAN Telephone (HEMASA) MARITZA ESPINO ([id number]) 1945 F Date Time Provider Department 12/01/20 ANDREI MARIO During your visit today, we recorded the following information about you: [facility] 12/01/2020 9:08 AM Signed Records faxed to [facility]. Patient to follow with Dr. Beckett. Release signed. . Allergies As of Date: 12/01/2020 Noted Allergy Reaction AMOXICILLIN 11/20/2016 7 - Swelling Comments: Facial swelling RAGWEED POLLEN 11/19/2016 16 - Unknown Date Reviewed: 05/27/2020 Reviewed by: Jayson Sullivan - Fully Assessed Reason for Visit: Records faxed [Other] Prescriptions as of 12/01/2020 - amitriptyline (ELAVIL) 10 mg tablet TAKE 1 TABLET BY MOUTH EVERYDAY AT BEDTIME - metoprolol succinate ER (TOPROL XL) 50 mg 24 hr tablet Take 50 mg by mouth once daily. - alendronate (FOSAMAX) 70 mg tablet Take 70 mg by mouth one time a week. - CALCIUM ORAL Take by mouth. - cholecalciferol, vitamin D3, (VITAMIN D3 ORAL) Take by mouth. - aspirin, enteric coated (ADULT LOW DOSE ASPIRIN) 81 mg EC tablet Take 81 mg by mouth once daily. - MULTIVITAMIN ORAL Take by mouth. - folic acid/multivit-min/lutein (CENTRUM SILVER ORAL) Take by mouth. - multivit,calc,mins/iron/folic (ONE-A-DAY WOMENS FORMULA ORAL) Take by mouth. - lisinopril 2.5 mg tablet Problem List As Of Date 12/01/2020 Noted Resolved Lymphocytosis [D72.820] 12/11/2016 CLL (chronic lymphocytic leukemia) ([facility]) [C91.1*12/11/2017 Encounter Status:Closed by [facility], NICOLE Will on 12/01/20 [facility] [place] 11-24-2020 CNPN Telephone ([employer] MARITZA ESPINO ([id number]) 1945 F Date Time Provider Department 11/24/20 ANDREI MARIO During your visit today, we recorded the following information about you: Mai Carlson 11/24/2020 2:33 PM Signed Please sign pending lab orders for Saturday12/02/20. Mai Perez MA Vivek Abhyankar, MD 11/28/2020 2:56 PM Signed Signed thanks Allergies As of Date: 11/24/2020 Noted Allergy Reaction AMOXICILLIN 11/20/2016 7 - Swelling Comments: Facial swelling RAGWEED POLLEN 11/19/2016 16 - Unknown Date Reviewed: 05/27/2020 Reviewed by: Jayson Sullivan - Fully Assessed Reason for Visit: Lab Orders [1688] Primary Visit Diagnosis:CLL (chronic lymphocytic leukemia) (HCC) [C91.10] Order(s):CBC + DIFF [SQCBCDIF] Order #: [id number] STANDING COMP METABOLIC PANEL [SQCMP] Order #: [id number] STANDING LD LACTATE DEHYDRO [SQLD6] Order #: [id number] STANDING Prescriptions as of 11/30/2020 - amitriptyline (ELAVIL) 10 mg tablet TAKE 1 TABLET BY MOUTH EVERYDAY AT BEDTIME - metoprolol succinate ER (TOPROL XL) 50 mg 24 hr tablet Take 50 mg by mouth once daily. - alendronate (FOSAMAX) 70 mg tablet Take 70 mg by mouth one time a week. - CALCIUM ORAL Take by mouth. - cholecalciferol, vitamin D3, (VITAMIN D3 ORAL) Take by mouth. - aspirin, enteric coated (ADULT LOW DOSE ASPIRIN) 81 mg EC tablet Take 81 mg by mouth once daily. - MULTIVITAMIN ORAL Take by mouth. - folic acid/multivit-min/lutein (CENTRUM SILVER ORAL) Take by mouth. - multivit,calc,mins/iron/folic (ONE-A-DAY WOMENS FORMULA ORAL) Take by mouth. - lisinopril 2.5 mg tablet Problem List As Of Date 11/24/2020 Noted Resolved Lymphocytosis [D72.820] 12/11/2016 CLL (chronic lymphocytic leukemia) (HCC) [C91.1*12/11/2017 Encounter Status:Closed by MAI CARLSON on 11/30/20 [facility] CNOVSPon 06-01-2020 CNOVSP Visit (SP) Office ([employer] [place]) MARITZA ESPINO ([id number]) 1945 F Date Time Provider Department 06/01/20 10:00 AM ANDREI MARIO During your visit today, we recorded the following information about you: Temperature Pulse Respiration Blood pressure 97.2 degrees 73/minute 18/minute 131/73 Weight Height 56.3 kg 1.579 m Andrei Mario MD 06/01/2020 10:13 AM Signed NAME: Maritza Espino CLINIC NO.: [id number] DATE OF SERVICE: June 01, 2020 Some elements in this clinic note that are critical to medical decision making have been carefully reviewed and included from a prior clinic note dated: December 09, 2019. 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 No need for intervention - continue serial surveillance. Diagnosed in 10/2016 by peripheral blood flow cytometry. PLAN: 1. Return to clinic in 6 months 2. Labs same day TREATMENT TO DATE: 2. 1. HPI: Updated Visit, June 01, 2020: Maritza is 75 yo and has stable counts as she returns for her q 6 month appointment. She has no B symptoms and no indications to treat. Updated Visit, December 09, 2019: Maritza Espino is a 74 year old female who presents in follow-up with chronic lymphocytic leukemia. Her white count is pretty much where it was last year. Her counts are overall stable she has no complaints today. She was formerly a patient of [facility]. There have been no treatment indications. PATHOLOGIC PROFILE/MOLECULAR DATA: Reviewed on June 01, 2020 2. 12/10/2019 FISH and IGVH status: IgVH Mutation MUTATED Comment: (NOTE) A clonal rearrangement was detected utilizing VH gene segment 3-48. This VH segment is <97% identical to the most closely matched germline VH gene sequence. The VH segment percent homology is 93.75. FISH for CLL ? Date Ordered: ?12/10/2019 ? ? ? Date Reported: ?12/18/2019 Procedure Results and Interpretation FISH for Chronic Lymphocytic Leukemia Sample Type: Peripheral Blood Number of nuclei scored: 100 per CLL, 200 for t(11;14) Result: LSI TP53 (17p13.1): Normal Pattern LSI BETHEL (11q22.3): Normal Pattern LSI [id number] (13q14): Normal Pattern CEP 12: Normal Pattern LSI LAMP1 (13q34): Normal Pattern IGH/CCND1 t(11;14)(q13;q32): Negative INTERPRETATION: There is a normal pattern of hybridization with each of the probes tested. 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 1. 11/21/2016 Peripheral blood Flow Cy: Specimen originated from [facility] Specimen #: [id number] Submitting Physician: SACHIN PEREZ II, DO SPECIMEN SUBMITTED A: PERIPHERAL BLOOD PROCEDURE(S) FLOW CYTOMETRY - PERIPHERAL BLOOD LOW GRADE LEUK MARKERS ? Date Ordered: ?11/21/2016 ? ? ? Date Reported: ?11/22/2016 Procedure Results and Interpretation Specimen type: Peripheral blood CBC (11/21/2016): ?WBC = ?19.93 k/uL; ?Hgb = 15.4 g/dL; ?Plt = 304 k/uL Differential (%): ?Neutrophil: 27; Lymphocyte: 67; Monocyte: 3; Eosinophil: 2; Basophil: 0; ?Other: 0. ? ? ? Viability: 98% ? ? Morphology comments: The small mature lymphocytes have condensed chromatin and round nuclei. Results: Marker ?Normal Cell ? ? Atypical Lymphocytes CD2 ?T/NK cells ? ? ? Negative CD3 ?T-cells ?Negative CD4 ?T-cell subset ? ?Negative? CD5 ?T-cells ?Positive CD7 ?T/NK-cells ? ? ? Negative CD8 ?T-cell subset ? ?Negative CD10 ? B-cell subset ? ?Negative CD13 ? Myeloid ?Negative CD16/56 ?T/NK cell ?Negative CD19 ? B-cell ? Positive CD20 ? B-cell ? Positive (dim) CD23 ? B-cell subset ? ?Positive CD45 ? Miranda-leukocyte ? ?Positive CD79b ?B-cell ? Negative CD123 ?Dendritic ?Negative FMC7 ? B-cells ?Negative kappa/lambda ? ? B-cells ?Monotypic(lambda) Interpretation: Flow cytometric analysis of the peripheral blood reveals that 58% of total events have the CD45 and side scatter properties of lymphocytes. ?The lymphocytes are composed of a mixture of T-cells (15%; CD4:CD8 ratio = 3.0), NK cells (2%) and B-cells (82%). The B-cells display an abnormal immunophenotype, and express CD5. CD19, CD20 (dim), CD23, and monotypic lambda light chains.. The B-cells are negative for CD10, CD79b, CD123, and FMC7 . 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 ?Correlation with the clinical findings is suggested. REVIEW OF (more content not included)... Normal [facility] Comp Metabolic Panelon 06-01 Albumin [Mass/Vol] 4.3 g/dL Normal 3.9-4.9 [facility] ALP [Catalytic activity/Vol] 66 U/L Normal 34-123 [facility] ALT [Catalytic activity/Vol] 13 U/L Normal 7-38 [facility] Anion gap [Moles/Vol] 8 mmol/L Low 9-18 [facility] AST [Catalytic activity/Vol] 20 U/L Normal 13-35 [facility] Bilirubin [Mass/Vol] 0.5 mg/dL Normal 0.2-1.3 [facility] Calcium [Mass/Vol] 9.4 mg/dL Normal 8.5-10.2 [facility] Chloride [Moles/Vol] 101 mmol/L Normal 97-105 [facility] CO2 [Moles/Vol] 26 mmol/L Normal 22-30 [facility] Creatinine [Mass/Vol] 1.12 mg/dL High 0.58-0.96 [facility] eGFR- Amer. 58 Normal [facility] eGFR-All Other Races 48 . Normal [facility] Comment on above: Result Comment: eGFR (Estimated GFR) Units of measure: mL/min/1.73 meters squared eGFR is derived from the reexpressed MDRD Study equation using the following parameters: serum creatinine, age, gender and race. The creatinine assay has been calibrated to be traceable to IDMS. An eGFR <60 mL/min/1.73m2 for >3 months is consistent with chronic kidney disease. Refer to KDOQI guidelines for clinical interpretation. In patients with unstable renal function, e.g. those with acute kidney injury, the eGFR may not accurately reflect actual GFR. Glucose [Mass/Vol] 97 mg/dL Normal 74-99 [facility] Comment on above: Result Comment: The [place] Diabetes Association (ADA) provides guidance for cutoff values for fasting glucose and random glucose. The ADA defines fasting as no caloric intake for at least 8 hours. Fasting plasma glucose results between 100 to 125 mg/dL indicate increased risk for diabetes (prediabetes). Fasting plasma glucose results greater than or equal to 126 mg/dL meet the criteria for diagnosis of diabetes. In the absence of unequivocal hyperglycemia, results should be confirmed by repeat testing. In a patient with classic symptoms of hyperglycemia or hyperglycemic crisis, random plasma glucose results greater than or equal to 200 mg/dL meet the criteria for diagnosis of diabetes. Reference: Standards of Medical Care in Diabetes 2016, [place] Diabetes Association. Diabetes Care. 2016.39(Suppl 1). Potassium [Moles/Vol] 4.5 mmol/L Normal 3.7-5.1 [facility] Protein [Mass/Vol] 6.4 g/dL Normal 6.3-8.0 [facility] Sodium [Moles/Vol] 135 mmol/L Low 136-144 [facility] Urea nitrogen [Mass/Vol] 32 mg/dL High 7-21 [facility] LDon 06-01-2020 LD 173 U/L Normal 135-214 [facility] Remote CBCDIF (for [facility] use o nly)on 06-01-2020 Abs Baso 0.10 k/uL Normal <0.11 [facility] Abs C[place]shaw 0.97 k/uL High <0.87 [facility] Abs Neut 5.24 k/uL Normal 1.45-7.50 [facility] Absolute nRBC <0.01 Normal <0.01 [facility] Basophils/100 WBC (Bld) 0.5 % Normal [facility] DTYPE Auto Diff Normal [facility] Eosinophils (Bld) [#/Vol] 0.47 10*3/uL High <0.46 [facility] Eosinophils/100 WBC (Bld) 2.3 % Normal [facility] Erythrocyte distribution width (RBC) [Ratio] 13.3 % Normal 11.5-15.0 [facility]emat[facility] (Bld) [Volume fraction] 44.1 % Normal 36.0-46.0 [facility] Hemoglobin (Bld) [Mass/Vol] 14.3 g/dL Normal 11.5-15. 5 [facility] Lymphocytes (Bld) [#/Vol] 13.74 10*3/uL High 1.00-4. 00 [facility] Lymphocytes/100 WBC (Bld) 67.0 % Normal [facility] MCH 29.6 pG Normal 26.0-34.0 [facility] MCHC (RBC) [Mass/Vol] 32.4 g/dL Normal 30.5-36.0 [facility] MCV (RBC) [Entitic vol] 91.3 fL Normal 80.0-100.0 [facility] Monocytes/100 WBC (Bld) 4.7 % Normal [facility] Neutrophils/100 WBC (Bld) 25.5 % Normal [facility] NRBCs 0.0 /100 WBC Normal 0 [facility] Platelet mean volume (Bld) [Entitic vol] 10.5 fL Normal 9.0-12.7 [facility] Platelets (Bld) [#/Vol] 309 10*3/uL Normal 150-400 [facility] RBC (Bld) [#/Vol] 4.83 10*6/uL Normal 3.90-5.20 [facility] WBC (Bld) [#/Vol] 20.52 10*3/uL High 3.70-11.00 [facility] CNPNon 05-27-2020 PAULAN Telephone (HEMASA) MARITZA ESPINO ([id number]) 1945 F Date Time Provider Department 05/27/20 ANDREI MARIO During your visit today, we recorded the following information about you: Allergies As of Date: 05/27/2020 Noted Allergy Reaction AMOXICILLIN 11/20/2016 7 - Swelling Comments: Facial swelling RAGWEED POLLEN 11/19/2016 16 - Unknown Date Reviewed: 05/27/2020 Reviewed by: Jayson Sullivan - Fully Assessed Reason for Visit: Lab Orders [4198] Primary Visit Diagnosis:CLL (chronic lymphocytic leukemia) (HCC) [C91.10] Other Visit Diagnosis:Lymphocytosis [D72.820] Order(s):CBC + DIFF (FOR REMOTE [facility] USE) [SQRCBCDF] Order #: [id number] FUTURE COMP METABOLIC PANEL [SQCMP] Order #: [id number] FUTURE LD LACTATE DEHYDRO [SQLD6] Order #: [id number] FUTURE Prescriptions as of 05/27/2020 Sig: METOPROLOL SUCCINATE ER 50 MG* Take 50 mg by mouth once wilber* ALENDRONATE 70 MG TABLET Take 70 mg by mouth one time * CALCIUM ORAL Take by mouth. VITAMIN D3 ORAL Take by mouth. ASPIRIN 81 MG TABLET,DELAYED * Take 81 mg by mouth once wilber* MULTIVITAMIN ORAL Take by mouth. CENTRUM SILVER ORAL Take by mouth. ONE-A-DAY WOMENS FORMULA ORAL Take by mouth. LISINOPRIL 2.5 MG TABLET Problem List As Of Date 05/27/2020 Noted Resolved Lymphocytosis [D72.820] 12/11/2016 CLL (chronic lymphocytic leukemia) (HCC) [C91.1*12/11/2017 Encounter Status:Closed by JAYSON SULLIVAN CNP on 05/27/20 Normal [facility] Vital Signs Date Time Vital Sign Value Performing Clinician Facility 02-11-2023 13:15-0500 Body height 157.48 cm Dang Anguiano Other [employer] Other 02-11-2023 13:15-0500 Body mass index (BMI) [Ratio] 20.81 kg/m2 Dang Anguiano Other [employer] Other 02-11-2023 13:15-0500 Body weight 51.62 kg Dang Anguiano Other [employer] Other 02-11-2023 13:15-0500 Diastolic blood pressure 87 mm[Hg] Dang Anguiano Other [employer] Other 02-11-2023 13:15-0500 Systolic blood pressure 149 mm[Hg] Dang Anguiano Other [employer] Other 01-01-2023 08:30-0400 Body height 157.48 cm Dang Anguiano Other [employer] Other 01-01-2023 08:30-0400 Body mass index (BMI) [Ratio] 21.32 kg/m2 Dang Anguiano Other [employer] Other 01-01-2023 08:30-0400 Body weight 52.89 kg Dang Anguiano Other [employer] Other 01-01-2023 08:30-0400 Diastolic blood pressure 84 mm[Hg] aDng Anguiano Other [employer] Other 01-01-2023 08:30-0400 Systolic blood pressure 154 mm[Hg] Dang Anguiano Other [employer] Other 07-02-2022 09:30-0400 Body height 157.48 cm Dang Anguiano Other [employer] Other 07-02-2022 09:30-0400 Body mass index (BMI) [Ratio] 21.58 kg/m2 Dang Anguiano Other [employer] Other 07-02-2022 09:30-0400 Body weight 53.52 kg Dang Anguiano Other [employer] Other 07-02-2022 09:30-0400 Diastolic blood pressure 72 mm[Hg] Dang Anguiano Other [employer] Other 07-02-2022 09:30-0400 SaO2% (BldA) [Mass fraction] 98 % Dang Anguiano Other [employer] Other 07-02-2022 09:30-0400 Systolic blood pressure 138 mm[Hg] Dang Anguiano Other [employer] Other 05-11-2022 09:45-0500 Body height 157.48 cm Dang Anguiano Other [employer] Other 05-11-2022 09:45-0500 Body mass index (BMI) [Ratio] 21.95 kg/m2 Dang Anguiano Other [employer] Other 05-11-2022 09:45-0500 Body weight 54.43 kg Dang Anguiano Other [employer] Other 05-11-2022 09:45-0500 Diastolic blood pressure 82 mm[Hg] Dang Anguiano Other [employer] Other 05-11-2022 09:45-0500 SaO2% (BldA) [Mass fraction] 97 % Dang Anguiano Other [employer] Other 05-11-2022 09:45-0500 Systolic blood pressure 130 mm[Hg] Dang Anguiano Other [employer] Other 04-05-2022 15:30-0500 Body height 157.48 cm Dang Anguiano Other [employer] Other 04-05-2022 15:30-0500 Body mass index (BMI) [Ratio] 21.58 kg/m2 Dang Anguiano Other [employer] Other 04-05-2022 15:30-0500 Body weight 53.52 kg Dang Anguiano Other [employer] Other 04-05-2022 15:30-0500 Diastolic blood pressure 88 mm[Hg] Dang Anguiano Other [employer] Other 04-05-2022 15:30-0500 SaO2% (BldA) [Mass fraction] 98 % Dang Anguiano Other [employer] Other 04-05-2022 15:30-0500 Systolic blood pressure 140 mm[Hg] Dang Anguiano Other [employer] Other 10-17-2021 15:57-0400 Body temperature 97.6 [degF] MD Dang Anguiano Work Phone: [facility] 10-17-2021 15:57-0400 Diastolic blood pressure 67 mm[Hg] MD Dang Anguiano Work Phone: [facility] 10-17-2021 15:57-0400 Heart rate 76 /min MD Dang Anguiano Work Phone: [facility] 10-17-2021 15:57-0400 Respiratory rate 14 /min MD Dang Anguiano Work Phone: [facility] 10-17-2021 15:57-0400 SaO2% (BldA) [Mass fraction] 91 % MD Dang Anguiano Work Phone: [facility] 10-17-2021 15:57-0400 Systolic blood pressure 112 mm[Hg] MD Dang Anguiano Work Phone: [facility] 10-17-2021 09:45-0400 Body height 160.02 cm MD Dang Anguiano Work Phone: [facility] 10-17-2021 08:42-0400 Inhaled oxygen flow rate 2 L/min MD Dang Anguiano Work Phone: [facility] 10-17-2021 05:08-0400 Body weight 55.3 kg MD Dang Anguiano Work Phone: [facility] 10-16-2021 11:25-0400 Body mass index (BMI) [Ratio] 20 kg/m2 MD Dang Anguiano Work Phone: [facility] Encounters Encounter Date Encounter Type Care Provider Facility Start: 02-11-2023 End: 02-11-2023 ambulatory Dang Anguiano Other [employer] [facility] [email or web address] Other Start: 02-11-2023 Office outpatient vi sit 15 minutes Dang Anguiano [facility] Start: 02-11-2023 Telephone encounter Dang Anguiano [facility] Start: 01-14-2023 End: 01-14-2023 ambulatory Dang Anguiano Other [employer] Other Start: 01-14-2023 Telephone encounter Dang Anguiano [facility] Start: 01-01-2023 End: 01-01-2023 ambulatory Dang Anguiano Other [employer] Other Start: 01-01-2023 Office outpatient vi sit 25 minutes Dang Anguiano [facility] Start: 08-22-2022 End: 08-22-2022 ambulatory KRISHAN GONSALEZ Facility:[facility] Start: 07-06-2022 End: 07-07-[address] CHIP CORONA Facility:[facility] Start: 07-02-2022 End: 07-02-2022 ambulatory Dang Anguiano Other [employer] Other Start: 07-02-2022 Office outpatient vi sit 15 minutes Dang Anguiano [facility] Start: 06-18-2022 ambulatory Dang Anguiano Facility :[facility] Start: 05-18-2022 End: 05-18-2022 ambulatory Dang Anguiano Other [employer] Other Start: 05-18-2022 Telephone encounter Dang Anguiano [facility] Start: 05-17-2022 End: 05-17-2022 ambulatory Dang Anguiano Other [employer] Other Start: 05-17-2022 Telephone encounter Dang Anguiano [facility] Start: 05-11-2022 Office outpatient vi sit 15 minutes Dang Anguiano [facility] Start: 05-11-2022 End: 05-12-[address] DANG ANGUIANO [employer] Other Start: 05-01-2022 End: 05-01-2022 ambulatory Dang Anguiano Other [employer] Other Start: 05-01-2022 Telephone encounter Dang Anguiano [facility] Start: 04-05-2022 End: 04-05-2022 ambulatory Dang Anguiano Other [employer] Other Start: 04-05-2022 Office outpatient vi sit 15 minutes Dang Anguiano [facility] Start: 10-16-2021 End: 10-17-2021 Admission to same day surgery center MD Dang Anguiano Work Phone: [facility] Start: 10-12-2021 End: 10-12-2021 Patient encounter procedure MD Dang Anguiano Work Phone: [facility] Start: 10-06-2021 End: 10-06-2021 Patient encounter procedure MD Dang Anguiano Work Phone: [facility] Start: 08-31-2021 End: 08-31-2021 Departed Referred MD Dang Anguiano Work Phone: [facility] Start: 08-29-2021 End: 08-29-2021 Patient encounter procedure MD Dang Anguiano Work Phone: [facility] Procedures Date Procedure Procedure Detail Performing Clinician Start: 10-16-2021 Laparoscopic fundoplication MD Dang Anguiano Work Phone: Plan of Treatment Date Care Activity Detail Author Start: 10-17-2021 Administration of pr ophylactic treatment [facility] Work Phone: Start: 10-17-2021 [facility] Work Phone: Patient referral [facility] Work Phone: Immunizations Immunization Date Immunization Notes Care Provider Fa cili 02-13-2022 COVID-19 Pfizer (Pediatric) Dang Anguiano Other [employer] Other 12-13-2021 influenza virus vaccine, split virus (incl. purified surface antigen) Dang Anguiano Other [employer] Other 01-02-2021 influenza virus vaccine, split virus (incl. purified surface antigen) Dang Anguiano Other [employer] Other 12-19-2020 COVID-19 mRNA Comirnatwinsome (Pfizer) MD Dang Anguiano Work Phone: [facility] 05-18-2020 COVID-19 mRNA Comirdianne (Pfizer) MD Dang Anguiano Work Phone: [facility] 04-27-2020 COVID-19 mRNA Comirdianne (Pfizer) MD Dang Anguiano Work Phone: [facility] 01-31-2018 pneumococcal polysaccharide vaccine, 23 valent Dang Anguiano Other [employer] Other 01-21-2017 pneumococcal conjuga te vaccine, 13 valent Dang Anguiano Other [employer] Other Payers Date Payer Category Payer Medicare [id number] ac [id number] 1957 Self-pay [id number] 1957 Unknown [id number] 1945 Unknown [id number] .16.84 [id number] 1945 Unknown [id number] .16.84 [id number] 1945 Unknown [id number] .16.84 [id number] Unknown [id number] 2.16.84 [id number] Unknown [id number] [id number] Social History Date Type Detail Facility Start: 10-06-2021 End: 10-16-2021 Tobacco smoking status NHIS Never smoked tobacco (finding) [facility] Start: 1945 Sex Assigned At Female F [facility] Sex Assigned At Sex Assigned At Bir th 52 [employer] [facility]gt[facility] Other Goals Date Patient Goal Desired Activity /State Functional Status Date Assessment Result Facility 10-17-2021 Functional status Patient at Baseline [facility] Work Phone: Mental Status Date Assessment Result Facility 10-17-2021 Cognitive function Cognitive Sta tus Patient at Baseline [facility] Work Phone: Clinical Notes 06-01-2020 to 02-11-2023 Note Date & Type Note Facility 02-11-2023 Evaluation note Encounter Date Diagnosis Assessment Notes Jan, Pneumatosis intestinalis (ICD-10 - K63.89) Completely resolved. Reviewed notes from [facility]. Pt is back to a normal diet and activity Jan, Chronic lymphocytic leukemia (ICD-10 - C91.10) WBC remains elevated. She has reviewed results w her Oncologist. Condition is Jan, Essential hypertension (ICD-10 - I10) Blood pressure remains well controlled at this time. Denies cardiac symptoms. Shows no signs or symptoms or poor control. Patient to continue with above medication and we will continue to monitor. Advised to pay attention to body and symptoms. Any developing patterns. Stay well hydrated. [facility] trgt.us Other [id number] Evaluation note* Encounter Date Diagnosis Assessment Notes Treatment Notes Treatment Clinical Notes Dec, Essential hypertension (ICD-10 - I10) Due for labs. Reviewed data from June Blood pressure remains well controlled at this time. Denies cardiac symptoms. Shows no signs or symptoms or poor control. Patient to continue with above medication and we will continue to monitor. Advised to pay attention to body and symptoms. Any developing patterns. Stay well hydrated. Dec, Screening mammogram for breast cancer (ICD-10 - Z12.31) Dec, CLL (chronic lymphocytic leukemia) (ICD-10 - C91.10) WBC 16.5 in June. Scheduled w hematology in spring. Continue to monitor levels. Dec, Paresthesia of skin (ICD-10 - R20.2) Continues with tingling in hands. Labs from spring reviewed. States the problem is intermittent and no worse. Continue daily MVI. [employer] Other 05-31-2023 NotePROCEDURE: XR ELBOW LT MIN 3 VIEWS HISTORY: Pain ; acute left elbow pain; no known injury COMPARISON: None. FINDINGS: BONES:No fracture, acute abnormality, or significant arthropathy. SOFT TISSUES:No visible soft tissue swelling. EFFUSION:None visible. OTHER: Negative. IMPRESSION: 1. No acute bone abnormality or significant degenerative joint disease. Electronically authenticated by: JUMANA YBARRA Date: 2022-08-22 09:05[facility]05-31-2023 NotePROCEDURE: XR ANKLE RT MIN 3 VIEWS HISTORY: Pain ; acute right ankle pain; no known injury COMPARISON: None. FINDINGS: BONES:No fracture, dislocation, or suspicious bone lesion. Small calcaneal plantar spur. Sclerotic focus within calcaneus suspected represent a benign bone island. SOFT TISSUES:No visible soft tissue swelling. EFFUSION:None visible. OTHER: Negative. IMPRESSION: 1. No acute bone abnormality or significant degenerative joint disease. Electronically authenticated by: JUMANA YBARRA Date: 2022-08-22 09:01[facility]04-10-2023 Evaluation note* Encounter Date Diagnosis Assessment Notes Treatment Notes Treatment Clinical Notes Jun, GERD without esophagitis (ICD-10 - K21.9) Reflux symptoms remain unchanged. Discussed the importance of meal content. They should avoid overeating and eating meals late in the evening. Take medication as directed and we will continue to monitor. Pt agrees to switch from zantac to prilosec. Jun, Essential hypertension (ICD-10 - I10) chronic - stable on present med. [employer] Other 02-24-2023 Evaluation note* Encounter Date Diagnosis Assessment Notes Treatment Notes Treatment Clinical Notes Apr, Paresthesia (ICD-10 - R20.2) [employer] Other 02-17-2023 Evaluation note* Encounter Date Diagnosis Assessment Notes Treatment Notes Treatment Clinical Notes Apr, Paresthesia of skin (ICD-10 - R20.2) will start by ruling out metabolic problems. Apr, Pain in unspecified limb (ICD-10 - M79.609) Apr, CLL (chronic lymphocytic leukemia) (ICD-10 - C91.10) chronic problem. Monitors WBC and does not presently followup with oncology Apr, Essential hypertension (ICD-10 - I10) stable. continue present meds. Due for labs. [employer] Other 01-12-2023 Evaluation note* Encounter Date Diagnosis Assessment Notes Treatment Notes Treatment Clinical Notes Mar, Essential hypertension (ICD-10 - I10) Reviewed medications encouraged exercise. We will switch Toprol to losartan. At low dose. Patient to return in 1 month for nurse visit for blood pressure check. Mar, Inflamed skin tag (ICD-10 - L91.8) Verbal consent obtained. Inflamed skin tag treated with cryo freeze with good results. Patient tolerated procedure well. Post care instructions given [employer] Other 07-26-2022 Progress note Author Sherwin Yepez [facility] October 17, 2021 8:28am Note Date/Time October 17, 2021 8:28 am [facility] [address] [place] [address] General Surgery Progress Note Signed Patient: Maritza Espino MR#: [id number] : 1945 Acct:[id number] Age/Sex: 76 / F Adm Date: 2 Loc: 4N Room: 4Z6967-7 Type : REG SD Attending Dr: Sherwin Yepez DO Copies to: ~ Date of Service: 10/17/2021 Subjective Subjective HPI: Patient said she already feels better than before surgery. She does not have any of the pain that she had before. She not having the reflux like she had before. She occasionally has a little burp after drinking however that is something that she has done for a long time. She is not having any nausea or vomiting. She is hungry. She is not having any fevers chills or sweats. She not having any shortness of breath or chest pain. She is already been up walking yesterday and she has been sitting in the chair as of this morning. Heronly real complaint is a sore throat. Allergies & Medications Medications and Allergies Allergies amoxicillin Allergy (Verified 10/06/21 11:01) hives, lips swell Home Medications aspirin 81 mg capsule 81 mg PO DAILY 06/16/21 [History Confirmed 10/16/21] metoprolol succinate 50 mg tablet,extended release 24 hr 50 mg PO DAILY htn 06/16/21 [History Confirmed 10/16/21] multivitamin 1 tab PO DAILY 06/16/21 [History Confirmed 10/16/21] calcium carbonate 600 mg-vitamin D3 10 mcg (400 unit) tablet (Calcium 600 + D(3)) 1 tab PO BID 10/06/21 [History Confirmed 10/16/21] fluticasone propionate 50 mcg/actuation nasal spray,suspension 2 spray intranasal DAILY PRN Allergy Symptoms 10/06/21 [History Confirmed 10/16/21] Active Medications Enoxaparin Sodium (Enoxaparin 40 Mg/0.4 Ml Syringe) 40 mg SUBCUT DAILY@1000 [facility] Stop: 10/17/22 09:59 Famotidine (Famotidine/Pf 20 Mg/2 Ml Vial) 20 mg IV-PUSH Q12HR LEON Stop: 10/16/22 20:59 Last Admin: 10/16/21 21:53 Dose: 20 mg Hydromorphone HCl (Hydromorphone 0.5 Mg/0.5 Ml Syringe) 1 mg IV-PUSH Q3H PRN PRN Reason: Pain Hydromorphone HCl (Hydromorphone 0.5 Mg/0.5 Ml Syringe) 0.5 mg IV-PUSH Q3H PRN PRN Reason: Pain Last Admin: 10/17/21 06:37 Dose: 0.5 mg Potassium Chloride/Sodium Chloride (0.9 % Nacl-20 Meq Kcl) 1,000 mls @ 80 mls/hr IV .[id number] LEON Stop: 10/16/22 17:07 Last Admin: 10/17/21 06:37 Dose: 80 mls/hr Metoprolol Tartrate (Metoprolol Tartrate 5 Mg/5 Ml Vial) 5 mg IV-PUSH Q6H LEON Stop: 10/16/22 17:59 Last Admin: 10/17/21 05:36 Dose: 5 mg Ondansetron HCl (Ondansetron 4 Mg/2 Ml Vial) 4 mg IV-PUSH Q6H PRN PRN Reason: Nausea And Vomiting Stop: 10/16/22 17:07 Sodium Chloride (Sodium Chloride 0.9 % 10 Ml Vial.Pf) 10 ml INJECTION PRN PRN PRN Reason: To dilute Pepcid Stop: 10/16/22 17:07 Last Admin: 10/16/21 21:58 Dose: 10 ml Exam Physical Exam Vital Signs: Temp Pulse Resp BP Pulse Ox O2 Del Method O2 Flow Rate 97.9 F 67 16 112/69 95 Nasal Cannula 2 10/17/21 08:00 10/17/21 08:00 10/17/21 08:00 10/17/21 08:00 10/17/21 08:00 10/17/21 08:00 10/17/21 08:00 Narrative: Patient is sitting up in her hospital chair. She is conversive pleasant lucid comfortable. Heart is regular rate. Lungs are clear. Abdomen is soft nontender nondistended incisions are clean dry and intact. Saravia catheter is clear yellow urine Objective Pain Assessment Generalized Abdomen: Pain Description: Chronic Pain Intensity: 6 Intake & Output 24 hour I&O: Intake & Output 10/16/21 10/17/21 10/17/21 23:59 07:59 15:59 Intake Total 0 / 1600 1100 / 1100 Output Total 750 / 750 500 / 500 Balance -750 / 850 600 / 600 Weight 55.3 kg Labs CBC & Chem 7: 10/17/21 04:35 10/17/21 04:35 Laboratory Results - Last 48 hrs. 10/17/21 04:35: PHA Creatinine Clear 42.09, Sodium 133 L, Potassium 4.9, Chloride 100, Carbon Dioxide 25.3, BUN 16, Creatinine 0.97, Est GFR ( Amer) > 60, Est GFR (Non-Af Amer) 56 10/17/21 04:35: Corrected WBC 19.6 H, Uncorrected WBC Count 19.6 H, RBC 4.79, Hgb 14.4, Hct 43.4, MCV 90.7, MCH 30.0, MCHC 33.0, RDW 13.8, Plt Count 238, MPV 9.8, Neut % (Auto) 64.8, Lymph % (Auto) 28.9, Crenshaw % (Auto) 5.9, Eos % (Auto) 0.0, Baso % (Auto) 0.4, Neut # (Auto) 12.7 H, Lymph # (Auto) 5.7 H, Crenshaw # (Auto) 1.2 H, Eos # (Auto) 0.0, Baso # (Auto) 0.1, Nucleated RBC % (auto) 0.0, Platelet Estimate Normal, Plt Morphology Comment Normal, RBC Morphology N/A A&P - General Surgery Assessment/Plan (1) Hiatal hernia: Code(s): K44.9 - Diaphragmatic hernia without obstruction or gangrene Status: Acute Plan Postoperative day 1 status post laparoscopic hiatal hernia repair and pexing of stomach. Improved symptoms from preoperative. Patient has elevated white blood cell count however with her CLL which is chronic she always has an elevated white blood cell count, was 17,000+ last time was checked. She is afebrile. No evidence of any postoperative complications. I discussed with her events of surgery. Postoperative treatment plan. I discontinued her NG tube and we will have Saravia catheter removed and Hep-Lock IV. Start liquid diet. She tolerates liquid diet she will be sent home with a full liquid diet and instructions for protein supplementation and will advance to regular diet as an outpatient. I discussed with her pain medication, after her gallbladder surgery etc. she will use Tylenol. I ordered Tylenol for her. Will reevaluate later today for discharge home Documented By: Sherwin Yepez DO 10/17/21 0824 Signed By: <Electronically signed by DO Sherwin Yepez> 10/17/21 0828 [facility] Work Phone: [phone] 788-126903-10-2021 NoteHNO ID: [id number] Author: Andrei Mario Service: ? Author Type: Physician Type: Progress Notes Filed: 06/01/2020 10:13 AM Note Text: NAME: Srinivas Maritza ANURADHA NO.: [id number] DATE OF SERVICE: June 01, 2020 Some elements in this clinic note that are critical to medical decision making have been carefully reviewed and included from a prior clinic note dated: December 09, 2019. 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 No need for intervention - continue serial surveillance. Diagnosed in 10/2016 by peripheral blood flow cytometry. PLAN: 1. Return to clinic in 6 months 2. Labs same day TREATMENT TO DATE: 2. 1. HPI: Updated Visit, June 01, 2020: Maritza is 75 yo and has stable counts as she returns for her q 6 month appointment. She has no B symptoms and no indications to treat. Updated Visit, December 09, 2019: Maritza Espino is a 74 year old female who presents in follow-up with chronic lymphocytic leukemia. Her white count is pretty much where it was last year. Her counts are overall stable she has no complaints today. She was formerly a patient of [facility]. There have been no treatment indications. PATHOLOGIC PROFILE/MOLECULAR DATA: Reviewed on June 01, 2020 2. 12/10/2019 FISH and IGVH status: IgVH Mutation MUTATED Comment: (NOTE) A clonal rearrangement was detected utilizing VH gene segment 3-48. This VH segment is <97% identical to the most closely matched germline VH gene sequence. The VH segment percent homology is 93.75. FISH for CLL ? Date Ordered: ?12/10/2019 ? ? ? Date Reported: ?12/18/2019 Procedure Results and Interpretation FISH for Chronic Lymphocytic Leukemia Sample Type: Peripheral Blood Number of nuclei scored: 100 per CLL, 200 for t(11;14) Result: LSI TP53 (17p13.1): Normal Pattern LSI BETEHL (11q22.3): Normal Pattern LSI [id number] (13q14): Normal Pattern CEP 12: Normal Pattern LSI LAMP1 (13q34): Normal Pattern IGH/CCND1 t(11;14)(q13;q32): Negative INTERPRETATION: There is a normal pattern of hybridization with each of the probes tested. 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 1. 11/21/2016 Peripheral blood Flow Cy: Specimen originated from [facility] Specimen #: [id number] Submitting Physician: SACHIN PEREZ II, DO SPECIMEN SUBMITTED A: PERIPHERAL BLOOD PROCEDURE(S) FLOW CYTOMETRY - PERIPHERAL BLOOD LOW GRADE LEUK MARKERS ? Date Ordered: ?11/21/2016 ? ? ? Date Reported: ?11/22/2016 Procedure Results and Interpretation Specimen type: Peripheral blood CBC (11/21/2016): ?WBC = ?19.93 k/uL; ?Hgb = 15.4 g/dL; ?Plt = 304 k/uL Differential (%): ?Neutrophil: 27; Lymphocyte: 67; Monocyte: 3; Eosinophil: 2; Basophil: 0; ?Other: 0. ? ? ? Viability: 98% ? ? Morphology comments: The small mature lymphocytes have condensed chromatin and round nuclei. Results: Marker ?Normal Cell ? ? Atypical Lymphocytes CD2 ?T/NK cells ? ? ? Negative CD3 ?T-cells ?Negative CD4 ?T-cell subset ? ?Negative? CD5 ?T-cells ?Positive CD7 ?T/NK-cells ? ? ? Negative CD8 ?T-cell subset ? ?Negative CD10 ? B-cell subset ? ?Negative CD13 ? Myeloid ?Negative CD16/56 ?T/NK cell ?Negative CD19 ? B-cell ? Positive CD20 ? B-cell ? Positive (dim) CD23 ? B-cell subset ? ?Positive CD45 ? Miranda-leukocyte ? ?Positive CD79b ?B-cell ? Negative CD123 ?Dendritic ?Negative FMC7 ? B-cells ?Negative kappa/lambda ? ? B-cells ?Monotypic(lambda) Interpretation: Flow cytometric analysis of the peripheral blood reveals that 58% of total events have the CD45 and side scatter properties of lymphocytes. ?The lymphocytes are composed of a mixture of T-cells (15%; CD4:CD8 ratio = 3.0), NK cells (2%) and B-cells (82%). The B-cells display an abnormal immunophenotype, and express CD5. CD19, CD20 (dim), CD23, and monotypic lambda light chains.. The B-cells are negative for CD10, CD79b, CD123, and FMC7 . 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 ?Correlation with the clinical findings is suggested. REVIEW OF SYSTEMS Per HPI and otherwise negative by full review of organ systems. ECOG PERFORMANCE STATUS: 0 PHYSICAL EXAMINATION: Vitals: BP 131/73 Pulse 73 Temp (Src) 97.2 (Temporal) Resp 18 Ht 5' 2.165 (1.58m) Wt 124 lb 3.2 oz (56.3kg) SpO2 96% BMI 22.60 kg/(m2). Body surface area is 1.57 meters (more content not included)...[facility]No [facility] Work Phone: Evaluation note* Diagnosis Onset Date Resolution Status Hiatal hernia acute [facility] Work Phone: Evaluation noteNo InformationNortMage[facility] tr[facility] Other [employer] general Narrative - Reported* Type Description Date Medical History sinusitis, bacterial Medical History osteoporosis, postmenopausal Medical History essential hypertension Medical History large hiatial hernia Medical History weight loss Medical History claudication Medical History generalized anxiety Medical History irritable bowel syndrome with di arrhea Medical History anxiety tension state Medical History chronic lymphocytic leukemia Medical History vaginal atrophy Surgical History cholecystectomy 09/2021 Surgical History T&A Surgical History laceration with foreign body ri ght thumb Surgical History hernia repair Hospitalization History see above Delia Mofibo Other Hisrgte general Narrative - Reported* Type Description Date Medical History sinusitis, bacterial Medical History osteoporosis, postmenopausal Medical History essential hypertension Medical History large hiatial hernia Medical History weight loss Medical History claudication Medical History generalized anxiety Medical History irritable bowel syndrome with di arrhea Medical History anxiety tension state Medical History chronic lymphocytic leukemia Medical History vaginal atrophy Surgical History cholecystectomy 09/2021 Surgical History T&A Surgical History laceration with foreign body ri ght thumb Surgical History hernia repair Hospitalization History Gregoria Low 2-2 3 [employer] Other Summary Purpose Family History Relationship Condition Age at Onset Recorded Date/T elieser Not Specified Malignant neoplasm of breast Unknown father Coronary artery disease Unknown Advance Directives Advance Directive Response Recorded Date/ Time Advance Directives No June 12, 2 022 2:22pm Chief Complaint and Reason for Visit Chief Complaint hitatal hernia luq a bd pain K44.9 R10.12 Hiatal Hernia Hiatal Hernia Chief Complaint hitatal hernia luq a bd pain K44.9 R10.12 Hiatal Hernia Hiatal Hernia Hiatal Hernia Reason for Visit Hiatal hernia Reason for Referral Reason 06/25/22 Natalie office, Last OV and labs. Will also scan in labs from last year to send along. Thank you Diagnosis 1 Paresthesia (R20.2) Referral Organization [facility] marcelo Referring Provider First Name Dang Referring Provider Last Name Annmarie Referring Provider Specialty [facility] Referred Organization [facility] Referred Provider Sharon Davila Referred Address [address] [place], [place],[address] Referred Provider Specialty Neurology Referral Priority Routine Referral Appointment Date 2022-06-25 General Notes Silvia Pereira 11:05:24 AM >received today, attachments made, form filled out, referral faxed Silvia Pereira 05/31/2022 10:06:11 AM >faxed first attempt letter Silvia Pereira 06/05/2022 08:49:35 AM >RECEIVED FAX WITH APPT DATE Additional Source Comments INFORMATION SOURCE (unrecogn ized section and content) DATE CREATED AUTHOR 04/26/2021 [facility] DATE CREATED AUTHOR AUTHOR'S ORGANIZ ATION 08/31/2022 [facility] DATE CREATED AUTHOR AUTHOR'S ORGANIZ ATION 12/29/2022 [facility] Care Teams (unrecognized sec tion and content) Team Status: Inactive Member Role Status Dates Dang Anguiano MD Primary Care Provider Active Sherwin Yepez DO Attending Provider Active Team Status: Active Member Role Status Dates Dang Anguiano MD Primary Care Provider Active Goals (unrecognized section and content) Goals may be documented in a n alternate sectionNo InformationNo InformationNo InformationNo InformationNo InformationNo InformationNo InformationNo InformationNo InformationNo Information REASON FOR VISIT (unrecogniz ed section and content) mole changing, BP issuesNo I nformationtoes/fingers numblabslabs3 month Follow up6 month Follow upmessagerecords.[facility] FOR RECORDS PERTAINING TO PATIENTS WHO ARE OR HAVE BEEN ENROLLED IN A CHEMICAL DEPENDENCY/SUBSTANCEABUSE PROGRAM, SOME INFORMATION MAY BE OMITTED. This clinical summary was aggregated from multiple sources. Caution should be exercised in using it in the provision of clinical care. This summary normalizes information from multiple sources, and as a consequence, information in this document may materially change the coding, format and clinical context of patient data. In addition, data may be omitted in some cases. CLINICAL DECISIONS SHOULD BE BASED ON THE PRIMARY CLINICAL RECORDS. [employer] provides no warranty or guarantee of the accuracy or completeness of information in this document.
== END 2023-01-30 14:32 | disposition home or self-care (01) ==
LOC: LAB 14:32
PROVIDERS: PCP Family Medicine; Visit Provider Nurse Practitioner Family
DX: R00.0 Tachycardia, unspecified (principal)
CPT/HCPCS: 36415; 80156; 84443

== ENCOUNTER 2023-02-03 03:54 | Emergency (ER) | payer MEDICARE, OTHER, SELFPAY ==
[2023-02-03] VITALS (27 sets, daily range): BP systolic 148–168; BP diastolic 84–105; PULSE 87–92; RESP 16–18; TEMP 36.4–36.7; O2SAT 93–97; BMI 20.9
--- NOTE | 2023-02-03 04:11 | ED_ITS ---
HPI - General Adult General Chief complaint: Back Pain/Injury Stated complaint: LOWER BACK PAIN, ABDOMINAL PAIN Time Seen by Provider: 02/03/23 04:08 Source: patient Mode of arrival: walk-in History of Present Illness HPI narrative: presents complaining of pain of her back and abdomen. . symptoms started 2 nights ago and has progressed. States she has vomited Phlegm. No fever. No diarrhea. Denies urinary symptoms Related Data Home Medications Medication Instructions Recorded Confirmed aspirin 81 mg capsule 81 mg PO DAILY 02/03/23 02/03/23 losartan 25 mg tablet 25 mg PO DAILY 02/03/23 02/03/23 omeprazole 20 mg capsule,delayed 20 mg PO DAILY 02/03/23 02/03/23 release Allergies Allergy/AdvReac Type Severity Reaction Status Date / Time amoxicillin Allergy Verified 02/03/23 04:25 Review of Systems ROS Status of ROS 10 or more systems reviewed and unremarkable except as noted in history and below PFSH PFS Social History Smoking status: Never smoker Exam Constitutional Vital Signs, click to edit/add: Last Vital Signs Temp 97.6 F 02/03/23 04:00 Pulse 92 H 02/03/23 04:00 Resp 16 02/03/23 04:00 BP 160/85 H 02/03/23 05:42 Pulse Ox 95 02/03/23 05:50 O2 Del Method Room Air 02/03/23 04:00 Common normals: no apparent distress, average body habitus, oriented x3, no limitations, healthy appearing, alert and well nourished [facility] Common normals: normocephalic and head/scalp atraumatic Eye Common normals: EOMs intact bilaterally and conjunctivae normal Respiratory Common normals: normal respiratory effort, no retractions and no use of accessory muscles Cardio Common normals: regular rate, regular rhythm, S1 normal heart sound and S2 normal heart sound GI Common normals: Normal to inspection, nondistended, normoactive bowel sounds present, soft to palpation and non-tender Extremity Common normals: normal to inspection and full ROM Neuro Common normals: oriented x3, CN's II-XII intact bilaterally, moves all extremities, no focal motor deficits and no sensory deficits noted Psych Appearance: grossly normal Course Vital Signs Vital signs: Vital Signs Temperature 97.6 F 02/03/23 04:00 Pulse Rate 92 H 02/03/23 04:00 Respiratory Rate 16 02/03/23 04:00 Blood Pressure 152/84 H 02/03/23 04:00 Pulse Oximetry 93 L 02/03/23 04:00 Oxygen Delivery Method Room Air 02/03/23 04:00 Temperature 97.6 F 02/03/23 04:00 Pulse Rate 92 H 02/03/23 04:00 Respiratory Rate 16 02/03/23 04:00 Blood Pressure 160/85 H 02/03/23 05:42 Pulse Oximetry 95 02/03/23 05:50 Oxygen Delivery Method Room Air 02/03/23 04:00 Medical Decision Making MDM Narrative Medical decision making narrative: patient has past history of CLL. CLL followed by her oncologist but she is not being treated. Presents with abdominal and back pain that started 2 nights ago and has progressed. Emesis of phlegm. No hematemesis. No fever or chills. Abdomen with mild diffuse abdominal tenderness without guarding. She is afebrile. WBC 24. WBC 21 last month. Lactic acid is normal. 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 No mesenteric or retroperitoneal lymphadenopathy present. Discussed with distribution field engineer Surgeon Dr Hdz and he recommends transfer to a Tertiary care center. I have ordered Flagy and vanco. she is now also requesting something for pain. Morphine and zofran ordered . Discussed with surgeon Dr Mcconnell at [facility] and patient accepted in transfer. Lab Data Labs: Lab Results 02/03/23 02/03/23 Range/Units 04:10 04:20 WBC 24.3 H (4.0-11.0) 10^3/uL RBC 4.91 (4.20-5.40) 10^6/uL Hgb 14.8 (12.0-16.0) g/dL Hct 44.2 (36.0-48.0) % MCV 90.0 (81.0-99.0) fL MCH 30.1 (26.7-34.0) pg MCHC 33.5 (29.9-35.2) g/dL RDW 12.5 (11.0-15.0) % Plt Count 329 (150-450) 10^3/uL MPV 11.0 (9.5-13.5) fL Seg Neuts % (Manual) 25.0 Lymphocytes % (Manual) 57.0 (20.5-60.0) % Atypical Lymphs % (Man) 15.0 % Monocytes % (Manual) 8.0 (1.7-12.0) % Eosinophils % (Manual) 0.0 L (0.9-7.0) % Basophils % (Manual) 0.0 L (0.2-2.0) % Neutrophils # (Manual) 6.07 (1.4-6.5) 10^3/uL Lymphocytes # (Manual) 13.85 H (1.20-3.80) 10^3/uL Abs Atypical Lymphs Man 3.6 Monocytes # (Manual) 1.94 H (0.30-0.80) 10^3/uL Eosinophils # (Manual) 0.00 (0.00-0.70) 10^3/uL Basophils # (Manual) 0.00 (0.00-0.10) 10^3/uL Sodium 129 L (136-145) mmol/L Potassium 4.1 (3.5-5.1) mmol/L Chloride 95 L (98-107) mmol/L Carbon Dioxide 23.0 (21.0-32.0) mmol/L Anion Gap 15.1 BUN 11.0 (7.0-18.0) mg/dL Creatinine 0.91 (0.55-1.02) mg/dL Est GFR ( Amer) >60 (>=60) Est GFR (Non-Af Amer) >60 (>=60) BUN/Creatinine Ratio 12.1 Glucose 133 H (74-106) mg/dL Lactate 1.5 (0.4-2.0) mmol/L Calcium 8.7 (8.5-10.1) mg/dL Total Bilirubin 0.4 (0.2-1.0) mg/dL AST 18 (15-37) U/L ALT 20 (14-59) U/L Alkaline Phosphatase 75 (46-116) U/L Troponin I High Sens 9.6 (4.0-51.3) pg/mL Total Protein 7.2 (6.4-8.2) g/dL Albumin 3.9 (3.4-5.0) g/dL Globulin 3.3 g/dL Albumin/Globulin Ratio 1.2 Lipase 27.0 (16.0-77.0) U/L Urine Color Yellow (YELLOW) Urine Clarity Clear (CLEAR) Urine pH 6.0 (5.0-9.0) Ur Specific [place] 1.020 (1.005-1.025) Urine Protein Negative (NEG/TRACE) mg/dL Urine Glucose (UA) Negative (NEGATIVE) mg/dL Urine Ketones Negative (NEGATIVE) mg/dL Urine Occult Blood Trace-i (NEGATIVE) Urine Nitrite Negative (NEGATIVE) Urine Bilirubin Negative (NEGATIVE) Urine Urobilinogen 0.2 (0.2-1.0) EU/dL Ur Leukocyte Esterase Negative (NEGATIVE) Urine RBC 2-5 A (0-2) #/HPF Urine WBC None seen (NONE SEEN) #/HPF Ur Squamous Epith Cells None seen (NONE/RARE) #/LPF Urine Crystals None seen (None Seen) #/HPF Urine Bacteria None seen (NONE SEEN) #/HPF Urine Casts None seen (NONE SEEN) #/LPF Urine Mucus None seen (NONE SEEN) Ur Culture Indicated? No Imaging Data CT scan - abdomen: Radiologist's impression: At the request of: MARIANELA GASPAR Procedure: CT abdomen pelvis w con EXAM: CT abdomen pelvis w con HISTORY: abdominal pain COMPARISON: CT abdomen and pelvis examination dated 07/07/2021. TECHNIQUE: Axial CT images through the abdomen and pelvis were obtained after the intravenous administration of contrast. Coronal and sagittal reformats were obtained. Dose reduction techniques were achieved by using automated exposure control and/or adjustment of mA and/or kV according to patient size and/or use of iterative reconstruction technique. FINDINGS: The visualized portions of the lung bases are clear. There is mild cardiomegaly. Abdomen: There is a cyst within the left hepatic lobe. Otherwise, the liver and spleen enhance homogeneously without focal lesion. There is no intra or extrahepatic biliary duct dilatation. The gallbladder is surgically absent. The pancreas, adrenal glands, kidneys, and the appendix are unremarkable. There is no mesenteric or retroperitoneal lymphadenopathy. There is a prominent amount of stool throughout the colon without evidence of bowel obstruction. There are scattered colonic diverticula without evidence of diverticulitis. There is pneumatosis intestinalis involving multiple small bowel loops. No portal venous gas is seen. Pelvis: The bladder and rectum are unremarkable. There is no iliac or inguinal lymphadenopathy. The uterus is present. The ovaries appear within normal limits by CT. There is a small amount of free fluid in the pelvis. There is mild atherosclerotic disease. Bone windows show no aggressive osseous lesions. CT/CT abdomen pelvis w con IMPRESSION: 1. 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 No portal venous gas is seen; however, please correlate for bowel ischemia. 2. Status post cholecystectomy. 3. Mild cardiomegaly. 4. Prominent amount of stool throughout the colon without evidence of bowel obstruction. 5. Normal appendix. 6. Small amount of free fluid in the pelvis. 7. Scattered colonic diverticula without evidence of acute inflammation. Finding #[address] Gaspar by Dr. Sorto at 5:53 AM ET on 02/03/2023. Electronically authenticated by: Mariluz SORTO Date: 02/03/2023 05:54 Dictated By: Link Sorto M.D. Signed By: 02/03/23 0557 DD/ 0554 TD/TT: Transc Discharge Plan Discharge Chief Complaint: Back Pain/Injury Clinical Impression: Pneumatosis intestinalis of small intestine Patient Disposition: [facility] Discharge Location: [facility]
--- NOTE | 2023-02-03 04:14 | CT_ITS ---
The [address] [address] Patient Name: SHAHNAZ ADAMES MRN: [id number] date: 1945 Sex: F Assigned Patient Location: ER Current Patient Location: Accession/Order Number: [id number] Exam Date: 02/03/2023 05:00 Report Date: 02/03/2023 05:54 At the request of: MARIANELA GASPAR Procedure: CT abdomen pelvis w con EXAM: CT abdomen pelvis w con HISTORY: abdominal pain COMPARISON: CT abdomen and pelvis examination dated 07/07/2021. TECHNIQUE: Axial CT images through the abdomen and pelvis were obtained after the intravenous administration of contrast. Coronal and sagittal reformats were obtained. Dose reduction techniques were achieved by using automated exposure control and/or adjustment of mA and/or kV according to patient size and/or use of iterative reconstruction technique. FINDINGS: The visualized portions of the lung bases are clear. There is mild cardiomegaly. Abdomen: There is a cyst within the left hepatic lobe. Otherwise, the liver and spleen enhance homogeneously without focal lesion. There is no intra or extrahepatic biliary duct dilatation. The gallbladder is surgically absent. The pancreas, adrenal glands, kidneys, and the appendix are unremarkable. There is no mesenteric or retroperitoneal lymphadenopathy. There is a prominent amount of stool throughout the colon without evidence of bowel obstruction. There are scattered colonic diverticula without evidence of diverticulitis. There is pneumatosis intestinalis involving multiple small bowel loops. No portal venous gas is seen. Pelvis: The bladder and rectum are unremarkable. There is no iliac or inguinal lymphadenopathy. The uterus is present. The ovaries appear within normal limits by CT. There is a small amount of free fluid in the pelvis. There is mild atherosclerotic disease. Bone windows show no aggressive osseous lesions. CT/CT abdomen pelvis w con IMPRESSION: 1. 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 No portal venous gas is seen; however, please correlate for bowel ischemia. 2. Status post cholecystectomy. 3. Mild cardiomegaly. 4. Prominent amount of stool throughout the colon without evidence of bowel obstruction. 5. Normal appendix. 6. Small amount of free fluid in the pelvis. 7. Scattered colonic diverticula without evidence of acute inflammation. Finding #[address] Gaspar by Dr. Sorto at 5:53 AM ET on 02/03/2023. Electronically authenticated by: Mariluz SORTO Date: 02/03/2023 05:54
[2023-02-03] MEDS: ACETAMINOPHEN 500 MG TABLET 1000 MG PO (04:30)
[2023-02-03 04:31] LABS: Hematocrit 44.2 % (36.0-48.0); Hemoglobin 14.8 g/dL (12.0-16.0); Mean Corpuscular HGB Conc 33.5 g/dL (29.9-35.2); Mean Corpuscular Hemoglobin 30.1 pg (26.7-34.0); Platelet Count 329 10^3/uL (150-450); Red Blood Count 4.91 10^6/uL (4.20-5.40); Red Cell Distribution Width 12.5 % (11.0-15.0); White Blood Count 24.3 10^3/uL (4.0-11.0)
[2023-02-03 04:32] LABS: Bilirubin Urine NEGATIVE (NEGATIVE); Blood Urine TRACE-I (NEGATIVE); Clarity Urine CLEAR (CLEAR); Color Urine YELLOW (YELLOW); Glucose Urine UA NEGATIVE (NEGATIVE); Ketones Urine NEGATIVE (NEGATIVE); Leukocyte Esterase Urine NEGATIVE (NEGATIVE); Nitrite Urine NEGATIVE (NEGATIVE); Protein Urine NEGATIVE (NEG/TRACE); Urine Microscopic Indicated YES; Urobilinogen Urine 0.2 EU/dL (0.2-1.0)
[2023-02-03] MEDS: 0.9 % SODIUM CHLORIDE 1,000 ML 999 ML IV (04:33)
[2023-02-03 04:47] LABS: Bacteria Urine NONE SEEN #/HPF (NONE SEEN); Cast Seen? NONE SEEN #/LPF (NONE SEEN); Crystals Seen? None Seen #/HPF (None Seen); Mucus Urine NONE SEEN (NONE SEEN); Squamous Epithelial Cell Urine NONE SEEN #/LPF (NONE/RARE); Urine Culture Indicated NO; WBC Urine NONE SEEN #/HPF (NONE SEEN)
[2023-02-03 04:48] LABS: Lactate/Lactic Acid 1.5 mmol/L (0.4-2.0)
[2023-02-03 04:57] LABS: Alanine Aminotransferase 20 U/L (14-59); Albumin Globulin Ratio 1.2; Albumin Level 3.9 g/dL (3.4-5.0); Alkaline Phosphatase 75 U/L (46-116); Anion Gap 15.1; Aspartate Amino Transferase 18 U/L (15-37); BUN Creatinine Ratio 12.1; Bilirubin Total 0.4 mg/dL (0.2-1.0); Calcium 8.7 mg/dL (8.5-10.1); Chloride 95 mmol/L (98-107); Estimated GFR (African America >60 (>=60); Estimated GFR (Non-African Ame >60 (>=60); Globulin 3.3 g/dL; Glucose 133 mg/dL (74-106); Potassium 4.1 mmol/L (3.5-5.1); Sodium 129 mmol/L (136-145); Total Protein 7.2 g/dL (6.4-8.2); Troponin I High Sensitivity 9.6 pg/mL (4.0-51.3)
[2023-02-03 05:48] LABS: Lymphocytes Absolute Manual 13.85 10^3/uL (1.20-3.80); Monocytes Absolute Manual 1.94 10^3/uL (0.30-0.80); Segmented Neut Absolute Manual 6.07 10^3/uL (1.4-6.5)
[2023-02-03 05:49] LABS: Atypical Lymphocytes Abs Man 3.6
[2023-02-03] MEDS: ONDANSETRON PF 4 MG/2 ML VIAL IV (06:40)
[2023-02-03] MEDS: MORPHINE SULFATE 4 MG/ML VIAL IV (06:40)
[2023-02-03] MEDS: METRONIDAZOLE/SODIUM CHLORIDE 500 MG/100 ML PREMIX 100 MG IV (06:40)
[2023-02-03] MEDS: VANCOMYCIN HCL 1,000 MG in 0.9 % SODIUM CHLORIDE 250 ML 250 MG IV (07:33)
== END 2023-02-03 08:53 | disposition short-term general hospital (02) ==
PROVIDERS: Emergency Provider Internal Medicine; PCP Family Medicine
DX: K63.89 Other specified diseases of intestine (principal); C91.10 Chronic lymphocytic leukemia of B-cell type not having achieved remission; Z79.899 Other long term (current) drug therapy; Z79.82 Long term (current) use of aspirin
CPT/HCPCS: 36415; 74177; 80053; 81001; 83605; 83690; 84484; 85027; 96361; 96365; 96366; 96368; 96375; 99285; J3370; Q9967

== ENCOUNTER 2023-06-14 08:15 | Outpatient (OUT) | payer MEDICARE, OTHER, SELFPAY ==
--- NOTE | 2023-06-14 | ECG_ITS ---
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
--- OUTSIDE RECORDS SUMMARY | 2023-06-14 08:23 | XMS_ITS | CCD ---
Author Organization [facility] Care Team Providers Care Operator Prefinish Name Role Phone MD Evaristo Anguiano Primary Care Provider DO Sherwin Yepez Attending Provider Evaristo Anguiano Unavailable REQUEST, NONE LISTED Admitting Unavaila ble REQUEST, DR SAUNDERS LISTED Consulting Unavaila ble REQUEST, DR SAUNDERS LISTED Attending Unavaila oscar ANGUIANO, DR EVARISTO De Primary Care Unavailable NATALIA PIMENTEL Admitting Unavailable NATALIA PIMENTEL Consulting Unavailable NATALIA PIMENTEL Attending Unavailable ANNMARIE, DR EVARISTO De Primary Care Unavailable ANNMARIE, DR EVARISTO De Primary Care Unavailable ANNMARIE, DR EVARISTO De Consulting Unavailable ANGUIANO, DR EVARISTO De Attending Unavailable ANGUIANO, DR EVARISTO De Admitting Unavailable KRISHAN GONSALEZ Admitting Unavailable KRISHAN GONSALEZ Attending Unavailable TATE, DR JUMANA Lemus Consulting Unavailable ANNMARIE, DR EVARISTO De Primary Care Unavailable KRISHAN GONSALEZ Consulting Unavailable Papito Tripp Attending Unavailable EVARISTO ANGUIANO Primary Care Physician Frederick Perze II Admitting Unavaila ble Frederick Perez II Attending Unavaila ble Eugenio Beckett Referring Unavailable Evaristo Anguiano Primary Care Unavailable Allergies Allergy Classification Reported Allergen(s) Allergy Type Date of Onset Reaction(s) Facility (12 sources) Amoxicillin; Translations: [Amoxicillin] Drug Allergy 01-29-20 18 Weal (disorder) [facility] (13 sources) Penicillin Drug Allergy Unknown [employer] Other (7 sources) Pseudoephedrine Drug Allergy 03-25-19 18 Unknown [employer] Other Medications Current Medications Medication Drug Class(es) Dates Sig (Normalized) Sig (Original) acetaminophen 325 mg oral tablet (1 source) Start: 10-17-2021 take 650 mg by mouth every four hours Acetaminophen Active 650 MG PO Q4H October 17, 2021 12:00am aspirin 81 mg oral capsule (10 sources) Platelet Aggregation Inhibitor, Nonsteroidal Anti-inflammatory Drug Start: 05-27-2023 take 1 mg by mouth every twenty-four hours aspirin 81 mg oral capsule mg cap(s), Oral, q24hr, Refills(s) 0 Start Date: 05/27/23 Status: Ordered Start: 06-16-2021 take 81 mg by mouth once daily Aspirin Active 81 MG PO Daily June 16, 2021 12:00am take 1 tablet by sarah th every twenty-four hours Aspirin 81 MG 1 tablet Orally Once a day Active calcium carbonate 1500 mg oral tablet (1 source) Start: 05-27-2023 take 1 mg by mouth once daily calcium (as carbonate) 600 mg oral tablet mg tab(s), Oral, Daily, Refills(s) 0 Start Date: 05/27/23 Status: Ordered calcium carbonate 1500 mg / cholecalciferol 0.01 mg oral tablet (2 sources) Vitamin D Start: 10-06-2021 take 1 tablet by mouth twice daily Calcium Carbonate-Vitami n D3 (Calcium 600 + D(3)) 600 mg-10 mcg (400 unit) Tablet Active 1 TAB PO Twice daily October 06, 2021 12:00am [facility] (1 source) Start: 05-27-2023 [facility] Oral, Daily, Refill(s) 0 Start Date: 05/27/23 Status: Ordered cholestyramine resin 4000 mg powder for oral suspension (1 source) Bile Acid Sequestrant Start: 05-27-2023 Questran 4 g/9 g oral powder = 1 packet(s), Oral, Daily, PRN Diarrhea, # 30 EA, Refills(s) 4, Pharmacy: [facility]/pharmacy #[id number], 159, cm, 05/27/23 12:05:00 EST, Height/Length Dosing, 50.6, kg, 05/27/23 12:05:00 EST, Weight Dosing Start Date: 05/27/23 Status: Ordered fluticasone propionate 0.05 mg/actuat metered dose nasal spray (2 sources) Corticosteroid Start: 10-06-2021 Fluticasone Propionate Active 2 SPRAY INTRANASAL Daily October 06, 2021 12:00am hyoscyamine sulfate 0.125 mg oral tablet (2 sources) take 1 tablet by mouth every four hours Levsin 0.125 MG 1 tablet as needed Orally every 4 hrs Active losartan potassium 25 mg oral tablet (14 sources) Angiotensin 2 Receptor Abilio Start: 05-27-2023 take 1 mg by mouth once daily losartan 25 mg Tab mg tab(s), Oral, Daily, Refills(s) 0 Start Date: 05/27/23 Status: Ordered take 1 tablet by [facility] every twenty-four hours Losartan Potassium 25 MG 1 tablet Orally Once a day for 90 days Active methylcellulose 2000 mg powder for oral suspension (1 source) Start: 05-27-2023 take 2 g by mouth twice daily Citrucel 2 g/19 g oral powder 2 gm, Oral, BID, # 507 gm, Refills(s) 3, Pharmacy: [facility]/pharmacy #[id number], 159, cm, 05/27/23 12:05:00 EST, Height/Length Dosing, 50.6, kg, 05/27/23 12:05:00 EST, Weight Dosing Start Date: 05/27/23 Status: Ordered 24 hr metoprolol succinate 50 mg extended release oral tablet (2 sources) beta-Adrenergi c Abilio Start: 06-16-2021 take 50 mg by mouth once daily Metoprolol Succinate Active 50 MG PO Daily June 16, 2021 12:00am Multivitamin (Multiple Vitamin) Tablet (1 source) Start: 06-16-2021 take 1 tablet by mouth once daily Multivitamin (Multiple Vitamin) Tablet Active 1 TAB PO Daily June 16, 2021 12:00am Multivitamin preparation (14 sources) Start: 06-16-2021 take 1 tablet by [...] Class(es) Dates Sig (Normalized) Sig (Original) Calcium (9 sources) Phosphate Binder, Calcium Start: 06-16-2021 End: 10-06-2021 take 600 mg by mouth once daily Calcium Discontinued 600 MG PO Daily June 16, 2021 12:00am October 06, 2021 11:03am Calcium + D3 Act greer Problems Problem Classification Problem Date Documented Da te Episodic/Chronic Abdominal hernia (16 sources) Hiatal hernia; Translations: [Diaphragmatic hernia without obstruction or gangrene] Onset: 4 10-17-2021 Episodic Anxiety disorders (20 sources) Anxiety; Translations: [Anxiety disorder, unspecified] Chronic Bacterial infection; unspecified site (13 sources) Bacterial infectious disease; Translations: [Other specified bacterial agents as the cause of diseases classified elsewhere] Episodic Esophageal disorders (9 sources) Gastroesophageal reflux disease without esophagitis; Translations: [Gastro-esophageal reflux disease without esophagitis] Chronic Essential hypertension (19 sources) Essential hypertension; Translations: [Essential (primary) hypertension] Onset: 3 Chronic Leukemias (20 sources) Chronic lymphoid leukemia, disease; 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] Onset: 3 07-02-2021 Chronic Leukemias (1 source) Leukemias; 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] Onset: 3 Menopausal disorders (13 sources) Atrophy of vagina; 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 Osteoporosis (13 sources) Postmenopausal osteoporosis; Translations: [Age-related osteoporosis without current pathological fracture] Chronic Other connective tissue disease (1 source) Pain in unspecified limb Episodic Other gastrointestinal disorders (13 sources) Irritable bowel syndrome with diarrhea; Translations: [Irritable bowel syndrome with diarrhea] Chronic Other gastrointestinal disorders (1 source) Other specified diseases of intestine Episodic Other gastrointestinal disorders (2 sources) Diarrhea, unspecified Episodic Other gastrointestinal disorders (1 source) Burping; Translations: [Eructation] Onset: 4 Episodic Other gastrointestinal disorders (1 source) Diarrhea; Translations: [Diarrhea, unspecified] Onset: 4 Episodic Other nervous system disorders (13 sources) Pain in limb; Translations: [Paresthesia of skin] Episodic Other nervous system disorders (7 sources) Paresthesia of skin; Translations: [PARESTHESIA OF SKIN] Onset: 3 Episodic Other nutritional; endocrine; and metabolic disorders (13 sources) Weight loss; Translations: [Abnormal weight loss] Episodic Other nutritional; endocrine; and metabolic disorders (1 source) Abnormal weight loss; Translations: [Abnormal weight loss] Onset: Episodic Other screening for suspected conditions (not mental disorders or infectious disease) (1 source) Encounter for screening mammogram for malignant neoplasm of breast Episodic Other skin disorders (1 source) Other hypertrophic disorders of the skin Episodic Other upper respiratory infections (13 sources) Bacterial sinusitis; Translations: [Chronic sinusitis, unspecified] Chronic Peripheral and visceral atherosclerosis (13 sources) Intermittent claudication; Translations: [Peripheral vascular disease, unspecified] Chronic Results Test Name Value Interpretation Reference Range Facility Comprehensive Metabolic P[facility] 06-12-2023 Albumin [Mass/Vol] 4.3 g/dL Normal 3.5-5.7 [facility] Comment on above: Performed By: #### D IFF CBC, CMP, LDH #### [facility] [address] Albumin/Globulin [Mass ratio] 2.3 {ratio} Normal [facility] Comment on above: Performed By: #### D IFF CBC, CMP, LDH #### [facility] [address] ALP [Catalytic activity/Vol] 71 U/L Normal 34-104 [facility] Comment on above: Performed By: #### D IFF CBC, CMP, LDH #### [facility] [address] [place] [id number] [place] ALT [Catalytic activity/Vol] 14 U/L Normal 7-52 [facility] Comment on above: Performed By: #### D IFF CBC, CMP, LDH #### [facility] [address] [place] [id number] [place] Anion gap [Moles/Vol] 14.1 mmol/L Normal 6.0-15.0 [facility] Comment on above: Performed By: #### D IFF CBC, CMP, LDH #### [facility] [address] [place] [id number] [place] AST [Catalytic activity/Vol] 20 U/L Normal 13-39 [facility] Comment on above: Performed By: #### D IFF CBC, CMP, LDH #### [facility] [address] Bilirubin [Mass/Vol] 0.4 mg/dL Normal 0.3-1.0 [facility] Comment on above: Performed By: #### D IFF CBC, CMP, LDH #### [facility] [address] Calcium [Mass/Vol] 9.5 mg/dL Normal 8.6-10.3 [facility] Comment on above: Performed By: #### D IFF CBC, CMP, LDH #### [facility] [address] Chloride [Moles/Vol] 101 mmol/L Normal 98-107 [facility] Comment on above: Performed By: #### D IFF CBC, CMP, LDH #### [facility] [address] CO2 [Moles/Vol] 28.3 mmol/L Normal 21.0-31.0 [facility] Comment on above: Performed By: #### D IFF CBC, CMP, LDH #### [facility] [address] [place] [address] [place] Creatinine [Mass/Vol] 0.87 mg/dL Normal 0.60-1.20 [facility] Comment on above: Performed By: #### D IFF CBC, CMP, LDH #### [facility] [address] [place] [address] [place] Creatinine Clr Calc Pharmacy 43.51 [facility] Comment on above: Performed By: #### D IFF CBC, CMP, LDH #### [facility] [address] [place] [address] [place] GFR/1.73 sq M.predicted MDRD (S/P/Bld) [Vol rate/Area] mL/min/{1.73_m2} [facility] Comment on above: Performed By: #### D IFF CBC, CMP, LDH #### [facility] [address] [place] [address] [place] Globulin (S) [Mass/Vol] 1.9 g/dL Normal [facility] Comment on above: Performed By: #### D IFF CBC, CMP, LDH #### [facility] [address] Glucose [Mass/Vol] 122 mg/dL High 70-100 [facility] Comment on above: Result Comment: [place] Glucose Reference Range is dependent on time and content of last meal. Glucose of more than 200 mg/dL in a nonstressed, ambulatory subject supports the diagnosis of Diabetes Mellitus. ADA recommended reference range Performed By: #### D IFF CBC, CMP, LDH #### [facility] [address] Potassium [Moles/Vol] 4.4 mmol/L Normal 3.5-5.1 [facility] Comment on above: Performed By: #### D IFF CBC, CMP, LDH #### [facility] [address] Protein [Mass/Vol] 6.2 g/dL Low 6.4-8.9 [facility] Comment on above: Performed By: #### D IFF CBC, CMP, LDH #### [facility] [address] [place] [address] Sodium [Moles/Vol] 139 mmol/L Normal 136-145 [facility] Comment on above: Performed By: #### D IFF CBC, CMP, LDH #### [facility] [address] [place] [address] Urea nitrogen [Mass/Vol] 20 mg/dL Normal 7-25 [facility] Comment on above: Performed By: #### D IFF CBC, CMP, LDH #### [facility] [address] [place] [address] [place] Diff and CBCon 06-12-2023 Anisocytosis Ql (Bld) Slight Normal [facility] Comment on above: Performed By: #### D IFF CBC, CMP, LDH #### [facility] [address] [place] [address] [place] Eosinophils/100 WBC (Bld) 1 % Normal 1-3 [facility] Comment on above: Performed By: #### D IFF CBC, CMP, LDH #### [facility] [address] Erythrocyte distribution width (RBC) [Ratio] 13.2 % Normal 11.9-15.3 [facility] Comment on above: Performed By: #### D IFF CBC, CMP, LDH #### [facility] [address] Giant Platelet Tally 1 /100{WBC} Normal [facility] Comment on above: Performed By: #### D IFF CBC, CMP, LDH #### [facility] [address] Hematocrit (Bld) [Volume fraction] 43.6 % Normal 34.0-46.4 [facility] Comment on above: Performed By: #### D IFF CBC, CMP, LDH #### [address] Hemoglobin (Bld) [Mass/Vol] 14.2 g/dL Normal 11.8-15.4 [facility] Comment on above: Performed By: #### D IFF CBC, CMP, LDH #### [address] Lymphocytes/100 WBC (Bld) 78 % High 18-42 [facility] Comment on above: Performed By: #### D IFF CBC, CMP, LDH #### [address] MCH (RBC) [Entitic mass] 29.7 pg Normal 24.7-34.3 [facility] Comment on above: Performed By: #### D IFF CBC, CMP, LDH #### [facility] [address] MCV (RBC) [Entitic vol] 91.0 fL Normal 80-100 [facility] Comment on above: Performed By: #### D IFF CBC, CMP, LDH #### [address] Mean Corpuscular HGB Conc 32.6 g/dL Normal 32.0-35.0 [facility] Comment on above: Performed By: #### D IFF CBC, CMP, LDH #### [address] Microcytosis Slight Normal [facility] Comment on above: Performed By: #### D IFF CBC, CMP, LDH #### [facility] [address] [place] [address] [place] Monocytes/100 WBC (Bld) 1 % Low 2-11 [facility] Comment on above: Performed By: #### D IFF CBC, CMP, LDH #### [facility] [address] Platelet Estimate Normal Normal Normal [facility] Comment on above: Performed By: #### D IFF CBC, CMP, LDH #### [address] Platelet mean volume (Bld) [Entitic vol] 9.5 fL Normal 6.3-10.7 [facility] Comment on above: Performed By: #### D IFF CBC, CMP, LDH #### [address] Platelet Morphology Normal Normal Normal [facility] Comment on above: Result Comment: PERF ORMED BY: [place] [address] PATHOLOGIST [employer]TING MACHINE OPERATOR TOMAS LUCIA M.D. Performed By: #### D IFF CBC, CMP, LDH #### [address] Platelets (Bld) [#/Vol] 270 10*3/uL Normal 150-450 [facility] Comment on above: Performed By: #### D IFF CBC, CMP, LDH #### [address] RBC (Bld) [#/Vol] 4.79 10*6/uL Normal 3.60-5.00 [facility] Comment on above: Performed By: #### D IFF CBC, CMP, LDH #### [facility] [address] RBC morphology finding Nom (Bld) Normal Normal Normal [facility] Comment on above: Performed By: #### D IFF CBC, CMP, LDH #### [facility] [address] Reactive Lymphocytes 1 % Normal 0-12 [facility] Comment on above: Performed By: #### D IFF CBC, CMP, LDH #### [address] Segmented neutrophils/100 WBC (Bld) 19 % Low 50-70 [facility] Comment on above: Performed By: #### D IFF CBC, CMP, LDH #### [address] WBC (Bld) [#/Vol] 16.8 10*3/uL High 3.8-11.6 [facility] Comment on above: Performed By: #### D IFF CBC, CMP, LDH #### [address] LDH Lactate Dehydrogenaseon 06-12-2023 LDH Lactate Dehydrogenase 144 U/L Normal 140-271 [facility] Comment on above: Result Comment: PERF ORMED BY: [place] [address] PATHOLOGIST [employer] FELTING MACHINE OPERATOR TOMAS LUCIA M.D. Performed By: #### D IFF CBC, CMP, LDH #### [address] Ambulatory Visit Summaryon 0 05-27-2023 Ambulatory Visit Summary MARITZA ESPINO :1945 Visit Date:05/27/2023 Ambulatory Visit Instructions Your Diagnosis Diarrhea, unspecified Weight loss Burping Hiatal hernia Your Care Team Attending Physician - Qasim PORTER, Papito Jo Primary Care Physician - EVARISTO ANGUIANO MD This Is Your Medications List cholestyramine (Questran 4 g/9 g oral powder) methylcellulose ([facility] 2 g/19 g oral powder) Contact prescribing physician if questions or concerns aspirin (aspirin 81 mg oral capsule) calcium carbonate (calcium (as carbonate) 600 mg oral tablet) losartan (losartan 25 mg Tab) multivitamin with minerals ([facility]) Procedures Performed Hiatal hernia (03/25/2021), Colonoscopy (03/25/2017), Elbow (03/25/2013), Gallbladder (08/23/1997), Tonsil. Discharge Vitals Temperature (Temporal Artery) 36.3 ?C Heart Rate (Peripheral) 91 Respiratory Rate 14 Blood Pressure 151/86 Height 63 in Height 159 cm Weight 111.32 lb Weight 50.6 kg BMI 20.02 Medications What How Much When Instructions New cholestyramine (Questran 4 g/ 9 g oral powder) 1 Packets By Mouth Every day as needed for Diarrhea Refills: 4 Pickup at [facility]/pharmacy #[id number] New methylcellulose (Citrucel 2 g/ 19 g oral powder) 2 Gram By Mouth 2 times a day Refills: 3 Pickup at [facility]/pharmacy #[id number] Unchanged aspirin (aspirin 81 mg oral capsule) By Mouth Every 24 hours Contact prescribing physician if questions or concerns Unchanged calcium carbonate (calcium (as carbonate) 600 mg oral tablet) By Mouth Every day Contact prescribing physician if questions or concerns Unchanged losartan (losartan 25 mg Tab) By Mouth Every day Contact prescribing physician if questions or concerns Unchanged multivitamin with minerals ([facility]) By Mouth Every day Contact prescribing physician if questions or concerns Pharmacy Information [facility]/pharmacy #[id number]: [address] [place] [place], [place] [id number] [phone] Allergies amoxicillin (Hives) Patient Survey You may receive a survey via text or e-mail asking about your office visit. Please share your experience with us by completing your survey. We appreciate your feedback and thank you for choosing us for your care. Normal [facility] Gastroenterology Office/Clin ic Noteon 05-27-2023 Gastroenterology Office/Clinic Note Chief Complaint ref by dr leach for diarrhea HPI Staff This is a 78 year old female who presents today for a referral by Annmarie for complaints of diarrhea. Has had it for about seven weeks, 5-6 bowel movements mainly in the am, associated with gas. Tried OTC immodium, but did not help. loose to watery BMs diarrhea resolved ( no diarrhea for the past 6 days) pt is on bland diet and watches what she eats it is solid now but not going as she used to go not drinking enough water some burping described as burping acid jerry in 1997 weight loss of 10 pounds blaming it on CLL CT 02/03/23 IMPRESSION: 1. 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 No portal venous gas is seen; however, please correlate for bowel ischemia. 2. Status post cholecystectomy. 3. Mild cardiomegaly. 4. Prominent amount of stool throughout the colon without evidence of bowel obstruction. 5. Normal appendix. 6. Small amount of free fluid in the pelvis. 7. Scattered colonic diverticula without evidence of acute inflammation. Last colon w/ Dr Jett 04/09/19 Normal Colonoscopy Last EGD 08/31/21 w/ Dr Yepez Large Hiatal hernia, other mejia normal; Biospy taken to rule out H. pylori Stomach, biopsy: - Gastric mucosa with minimal chronic inflammation. - No morphologic evidence of H. pylori identified. History of Present Illness I have reviewed HPI staff note, most recent labs and imaging, more than 30 minutes spent reviewing the chart, during encounter, placing orders and counseling the patient. Review of Systems PHQ Score Initial Depression Screen Score: 0 SCORE All systems reviewed, negative except as mentioned above Physical Exam Vitals & Measurements T: 36.3 ?C(Temporal Artery) HR: 91(Peripheral) RR: 14 BP: 151/86 HT: 63 in HT: 159 cm WT: 50.6 kg WT: 111.32 lb BMI: 20.02 General: alert, no acute distress HEENT: atraumatic normocephalic Cardiovascular: regular rate and rhythm, normal peripheral perfusion Respiratory: Lungs CTA, respirations non labored Extremities: no deformity, no trauma Abdomen: Benign, soft, nontender nondistended Assessment/Plan 1. Diarrhea, unspecified (R19.7: Diarrhea, unspecified) 2. Weight loss (R63.4: Abnormal weight loss) 3. Burping (R14.2: Eructation) 4. Hiatal hernia (K44.9: Diaphragmatic hernia without obstruction or gangrene) Orders: cholestyramine, = 1 packet(s), Oral, Daily, PRN Diarrhea, # 30 EA, Refills(s) 4, Pharmacy: [facility]/pharmacy #[id number], 159, cm, 05/27/23 12:05:00 EST, Height/Length Dosing, 50.6, kg, 05/27/23 12:05:00 EST, Weight Dosing methylcellulose, 2 gm, Oral, BID, # 507 gm, Refills(s) 3, Pharmacy: [facility]/pharmacy #[id number], 159, cm, 05/27/23 12:05:00 EST, Height/Length Dosing, 50.6, kg, 05/27/23 12:05:00 EST, Weight Dosing Advised to keep herself hydrated Advised to consume more fiber Citrucel twice daily Questran once daily as needed Stool studies and colonoscopy with random biopsies if diarrhea comes back To schedule follow-up if symptoms come back or weight loss get worse Follow-up No qualifying data available Problem List/Past Medical History Ongoing No qualifying data Historical No qualifying data Procedure/Surgical History Hiatal hernia (03/25/2021), Colonoscopy (03/25/2017), Elbow (03/25/2013), Gallbladder (08/23/1997), Tonsil. Medications aspirin 81 mg oral capsule, Oral, q24hr calcium (as carbonate) 600 mg oral tablet, Oral, Daily [facility], Oral, Daily Citrucel 2 g/19 g oral powder, 2 gm, Oral, BID, 3 refills losartan 25 mg Tab, Oral, Daily Questran 4 g/9 g oral powder, 1 packet(s), Oral, Daily, PRN, 4 refills Allergies amoxicillin (Hives) Social History Tobacco Never (less than 100 in lifetime) Tobacco Use:., 05/27/2023 Family History Family history is negative Immunizations Vaccine Date Status Comments influenza virus vaccine, inactivated 12/25/2022 Recorded SARS-CoV-2 (COVID-19) [id number] 02/13/2022 Recorded influenza virus vaccine, inactivated 12/13/2021 Recorded influenza virus vaccine, inactivated 01/02/2021 Recorded SARS-CoV-2 (COVID-19) mRNA BNT-162b2 vax 12/19/2020 Recorded 2023-05-23: TPV70 SARS-CoV-2 (COVID-19) mRNA BNT-162b2 vax 05/18/2020 Recorded 2023-05-23: TPV70 SARS-CoV-2 (COVID-19) mRNA BNT-162b2 vax 04/27/2020 Recorded 2023-05-23: TPV70 influenza virus vaccine, inactivated 11/29/2019 Recorded influenza virus vaccine, inactivated 12/23/2018 Recorded pneumococcal 23-valent vaccine 01/31/2018 Recorded influenza virus vaccine, inactivated 01/20/2018 Recorded pneumococcal 13-valent vaccine 01/21/2017 Recorded influenza virus vaccine, inactivated 01/21/2017 Recorded Normal [facility] Comment on above: Result Comment: Elec tronically Signed By: Qasim PORTER, Papito [email or web address].br\Date and Time Signed: 05/27/23 12:34 EST Physician Referralon 024 Physician Referral [id number] Normal [facility] IMMUNOFIXATION ELEC, PROTEIN ELECon 07-09-2022 Albumin [Mass/Vol] 3.7 g/dL Normal 2.9-4.4 [facility] Comment on above: Performed By: #### V ITB12 #### [facility] [address] [place] [address] Dr. Mary Herzog Albumin/Globulin [Mass ratio] 1.5 {ratio} Normal 0.7-1.7 [facility] Comment on above: Performed By: #### V ITB12 #### [facility] [address] [place] [address] Dr. Mary Herzog Qivrz-7-Wmnivvbn 0.3 g/dL Normal 0.0-0.4 [facility] Comment on above: Performed By: #### V ITB12 #### [facility] [address] [place] [address] Dr. Mary Herzog Kgsrv-7-Dgnsgtlm 0.8 g/dL Normal 0.4-1.0 [facility] Comment on above: Performed By: #### V ITB12 #### [facility] [address] [place] [address] Dr. Mary Herzog Beta Globulin 0.9 g/dL Normal 0.7-1.3 [facility] Comment on above: Performed By: #### V ITB12 #### [facility] [address] [place] [address] Dr. Mary Herzog Gamma Globulin 0.6 g/dL Normal 0.4-1.8 [facility] Comment on above: Performed By: #### V ITB12 #### [facility] [address] [place] [address] Dr. Mary Herzog Globulin (S) [Mass/Vol] 2.6 g/dL Normal 2.2-3.9 [facility] Comment on above: Performed By: #### V ITB12 #### [facility] [address] [place] [address] Dr. Mary Herzog Immunofixation Result, Serum Comment [facility] Comment on above: Result Comment: No m onoclonality detected. Performed By: #### V ITB12 #### [facility] [address] [place] [address] Dr. Mary Herzog Immunoglobulin A, Qn, Serum 102 mg/dL Normal 64-422 [facility] Comment on above: Performed By: #### V ITB12 #### [facility] [address] [place] [address] Dr. Mary Herzog Immunoglobulin G, Qn, Serum 635 mg/dL Normal 586-1602 [facility] Comment on above: Performed By: #### V ITB12 #### [facility] [address] [place] [address] Dr. Mary Herzog Immunoglobulin M, Qn, Serum 125 mg/dL Normal 26-217 [facility] Comment on above: Performed By: #### V ITB12 #### [facility] [address] [place] [address] Dr. Mary Herzog M-Nilesh Not Observed Normal Not Observed [facility] Comment on above: Performed By: #### V ITB12 #### [facility] [address] [place] [address] Dr. Mary Herzog PDF . Normal [facility] Comment on above: Performed By: #### V ITB12 #### [facility] [address] [place] [address] Dr. 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 Performed By: #### V ITB12 #### [facility] [address] [place] [address] Dr. Mary Herzog Protein [Mass/Vol] 6.3 g/dL Normal 6.0-8.5 [facility] Comment on above: Performed By: #### V ITB12 #### [facility] [address] [place] [address] Dr. Mary Herzog VITAMIN B6on 07-09-2022 Vitamin B6 29.2 ug/L Normal 3.4-65.2 [facility] Comment on above: Result Comment: Defi ciency: <3.4 Marginal: 3.4 - 5.1 Adequate: >5.1 Performed By: #### V ITAB6 #### [facility] [address] [place] [address] Dr. Mary Herzog COPPER, SERUM or PLASMAon Copper, Serum 136 ug/dL Normal 80-158 [facility] Comment on above: Result Comment: Dete ction Limit = 5 Performed By: #### V ITB12 #### [facility] [address] [place] [address] Dr. Mary Herzog MO COMPREHENSIVE PROFILEon 07-07-2022 Anti-Centromere B Antibodies <0.2 Normal 0.0-0.9 [facility] Comment on above: Performed By: #### V ITB12 #### [facility] [address] [place] [address] Dr. Mary Herzog Anti-DNA (DS) Ab Qn 1 IU/mL Normal 0-9 [facility] Comment on above: Result Comment: Nega tive <5 Equivocal 5 - 9 Positive >9 Performed By: #### V ITB12 #### [facility] [address] [place] [address] Dr. Mary Herzog Anti-Mary-1 <0.2 Normal 0.0-0.9 [facility] Comment on above: Performed By: #### V ITB12 #### [facility] [address] [place] [address] Dr. Mary Herzog Antichromatin Antibodies <0.2 Normal 0.0-0.9 [facility] Comment on above: Performed By: #### V ITB12 #### [facility] [address] [place] [address] Dr. Mary Herzog ANTIRIBOSOMAL P AB <0.2 Normal 0.0-0.9 [facility] Comment on above: Performed By: #### V ITB12 #### [facility] [address] [place] [address] Dr. Mary Herzog Antiscleroderma-70 Antibodies <0.2 Normal 0.0-0.9 [facility] Comment on above: Performed By: #### V ITB12 #### [facility] [address] [place] [address] Dr. Mary Herzog COMMENT Comment Normal [facility] Comment on above: Result Comment: Auto antibody Disease Association Condition Frequency Antinuclear Antibody, SLE, mixed connective Direct (MO-D) tissue diseases dsDNA SLE 40 - 60% Chromatin Drug induced SLE 90% SLE 48 - 97% SSA (Ro) SLE 25 - 35% Sjogren's Syndrome 40 - 70% Lupus 100% SSB (La) SLE 10% Sjogren's Syndrome 30% Sm (anti-Carlson) SLE 15 - 30% RELATIONSHIP SPECIALIST Mixed Connective Tissue Disease 95% (U1 nRNP, SLE 30 - 50% anti-ribonucleoprotein) Polymyositis and/or Dermatomyositis 20% Scl-70 (antiDNA Scleroderma (diffuse) 20 - 35% topoisomerase) Crest 13% Mary-1 Polymyositis and/or Dermatomyositis 20 - 40% Centromere B Scleroderma - Crest variant 80% Ribosomal P SLE 10 - 20% Performed By: #### V ITB12 #### [facility] [address] [place] [address] Dr. Mary Herzog RELATIONSHIP SPECIALIST Antibodies 0.2 AI Normal 0.0-0.9 [facility] Comment on above: Performed By: #### V ITB12 #### [facility] [address] [place] [address] Dr. Mary Herzog Sjogren's Anti-SS-A <0.2 Normal 0.0-0.9 [facility] Comment on above: Performed By: #### V ITB12 #### [facility] [address] [place] [address] Dr. Mary Buitragoogrmodesta's Anti-SS-B <0.2 Normal 0.0-0.9 [facility] Comment on above: Performed By: #### Parmjit ITB12 #### [facility] [address] [place] [address] Dr. Mary Herzog Carlson Antibodies <0.2 Normal 0.0-0.9 [facility] Comment on above: Performed By: #### V ITB12 #### [facility] [address] [place] [address] Dr. Mary Herzog Carlson/RELATIONSHIP SPECIALIST Antibodies <0.2 Normal 0.0-0.9 [facility] Comment on above: Performed By: #### V IT2 #### [facility] [address] [place] [address] Dr. Mary Herzog CBC W MANUAL DIFFon 07-07-19 23 ATYPICAL LYMPH # Normal [facility] Comment on above: Performed By: #### Chip BENSONMAN #### [facility] [address] [place] [address] Dr. Mary Herzog ATYPICAL LYMPH % Normal [facility] Comment on above: Performed By: #### Chip SKINNER #### [facility] [address] [place] [address] Dr. Mary Herzog BAND # Normal 0.0-0.3 [facility] Comment on above: Performed By: #### C BCCORY #### [facility] [address] [place] [address] Dr. Mary Herzog BAND % Normal 0-5 [facility] Comment on above: Performed By: #### C BCCORY #### [facility] [address] [place] [address] Dr. Mary Herzog BASOM # 0.00 103/ul Normal 0.00-0.10 [facility] Comment on above: Performed By: #### C BRODY #### [facility] [address] [place] [address] Dr. Mary Herzog BASOM % 0.0 % Critically low 0.2-2.0 [facility] Comment on above: Performed By: #### C BRODY #### [facility] [address] [place] [address] Dr. Mary Herzog BLAST # Normal [facility] Comment on above: Performed By: #### C BRODY #### [facility] [address] [place] [address] Dr. Mary Herzog BLAST % Normal [facility] Comment on above: Performed By: #### C BCCORY #### [facility] [address] [place] [address] Dr. Mary Herzog CORRECTED WBC Normal 4.0-11.0 [facility] Comment on above: Performed By: #### C BCCORY #### [facility] [address] [place] [address] Dr. Mary Herzog EOS # 0.49 103/ul Normal 0.00-0.70 [facility] Comment on above: Performed By: #### C BRODY #### [facility] [address] [place] [address] Dr. Mary Herzog EOS% 3.0 % Normal 0.9-7.0 [facility] Comment on above: Performed By: #### C BCCORY #### [facility] [address] [place] [address] Dr. Mary Herzog HCT 45.1 % Normal 36.0-48.0 [facility] Comment on above: Performed By: #### C BCMAN #### [facility] [address] [place] [address] Dr. Mary Herzog HGB 14.5 g/dl Normal 12.0-16.0 [facility] Comment on above: Performed By: #### C BCMAN #### [facility] [address] [address] [address] Mary Herzog LYMPHM # 10.89 103/ul Critically high 1.20-3.80 [facility] Comment on above: Performed By: #### C BCMAN #### [facility] [address] [address] [address] Mary Herzog LYMPHM% 66.0 % Critically high 20.5-60.0 [facility] Comment on above: Performed By: #### C BCMAN #### [facility] [address] [place] [address] Dr. Mary Herzog MCH 29.1 pg Normal 26.7-34.0 [facility] Comment on above: Performed By: #### C BCMAN #### [facility] [address] [place] [address] Dr. Mary Herzog MCHC 32.2 g/dl Normal 29.9-35.2 [facility] Comment on above: Performed By: #### C BCCORY #### [facility] [address] [place] [address] Dr. Mary Herzog MCV 90.4 fL Normal 81.0-99.0 [facility] Comment on above: Performed By: #### C BCMAN #### [facility] [address] [place] [address] Dr. Mary Herzog METAMYELOCYTE # Normal [facility] Comment on above: Performed By: #### C BCCORY #### [facility] [address] [place] [address] Dr. Mary Herzog METAMYELOCYTE % Normal [facility] Comment on above: Performed By: #### C BCMAN #### [facility] [address] [place] [address] Dr. Mary Herzog MONOM# 0.82 103/ul Critically high 0.30-0.80 [facility] Comment on above: Performed By: #### C BRODY #### [facility] [address] [place] [address] Dr. Mary Herzog MONOM% 5.0 % Normal 1.7-12.0 [facility] Comment on above: Performed By: #### C BRODY #### [facility] [address] [place] [address] Dr. Mary Hrezog MPV 10.6 fL Normal 9.5-13.5 [facility] Comment on above: Performed By: #### C BRODY #### [facility] [address] [place] [address] Dr. Mary Herzog MYELOCYTE # Normal [facility] Comment on above: Performed By: #### C BRODY #### [facility] [address] [place] [address] Dr. Mary Herzog MYELOCYTE % Normal [facility] Comment on above: Performed By: #### C BRODY #### [facility] [address] [place] [address] Dr. Mary Herzog NRBC Normal [facility] Comment on above: Performed By: #### C BRODY #### [facility] [address] [place] [address] Dr. Mary Herzog PLT 277 103/ul Normal 150-450 [facility] Comment on above: Performed By: #### C BRODY #### [facility] [address] [place] [address] Dr. Mary Herzog RBC 4.99 106/ul Normal 4.20-5.40 [facility] Comment on above: Performed By: #### C BRODY #### [facility] [address] [place] [address] Dr. Mary Herzog RDW 12.9 % Normal 11.0-15.0 [facility] Comment on above: Performed By: #### C BRODY #### [facility] [address] [place] [address] Dr. Mary Herzog SEG # 4.29 103/ul Normal 1.40-6.50 [facility] Comment on above: Performed By: #### C BRODY #### [facility] [address] [address] [address] Mary Herzog SEG % 26.0 % Critically low 43.0-75.0 [facility] Comment on above: Performed By: #### Chip SKINNER #### [facility] [id number] Mary Herzog WBC 16.5 103/ul Critically high 4.0-11.0 [facility] Comment on above: Performed By: #### C BRODY #### [facility] [address] [place] [address] Dr. Mary Herzog GLYCOHEMOGLOBIN A1Con 2022 ADA RECOMMENDATION SEE BELOW Normal [facility] Comment on above: Result Comment: ADA RECOMMENDED LIMIT 4.0 - 6.0 ADA THERAPEUTIC TARGET < 7.0 ACTION SUGGESTED > 7.0 Performed By: #### D ATA1C #### [facility] [address] [address] [address] Mary Herzog Glucose [Mass/Vol] 117 mg/dL Normal [facility] Comment on above: Performed By: #### D ATA1C #### [facility] [address] [place] [address] Dr. Mary Herzog HbA1c (Bld) [Mass fraction] 5.7 % Normal 4.5-6.2 [facility] Comment on above: Performed By: #### D ATA1C #### [facility] [address] [place] [address] Dr. Mary Herzog PROF 14(COMP METB)on 023 Albumin [Mass/Vol] 3.7 g/dL Normal 3.4-5.0 [facility] Comment on above: Performed By: #### C MP, TSH #### [facility] [address] [place] [address] Dr. Mary Herzog Albumin/Globulin [Mass ratio] 1.1 {ratio} Normal [facility] Comment on above: Performed By: #### C MP, TSH #### [facility] [address] [address] [address] Mary Herzog ALP [Catalytic activity/Vol] 80 U/L Normal 46-116 [facility] Comment on above: Performed By: #### C MP, TSH #### [facility] [address] [address] [address] Mary Herzog ALT [Catalytic activity/Vol] 24 U/L Normal 14-59 [facility] Comment on above: Performed By: #### C MP, TSH #### [facility] [address] [address] [address] Mary Herzog Anion gap [Moles/Vol] 12.6 mmol/L Normal [facility] Comment on above: Performed By: #### C MP, TSH #### [facility] [address] [address] [address] Mary Herzog AST [Catalytic activity/Vol] 21 U/L Normal 15-37 [facility] Comment on above: Performed By: #### C MP, TSH #### [facility] [address] [address] [address] Mary Herzog Bilirubin [Mass/Vol] 0.5 mg/dL Normal 0.2-1.0 [facility] Comment on above: Performed By: #### C MP, TSH #### [facility] [address] [address] [address] Mary Herzog Calcium [Mass/Vol] 9.4 mg/dL Normal 8.5-10.1 [facility] Comment on above: Performed By: #### C MP, TSH #### [facility] [address] [address] [address] Mary Herzog Chloride [Moles/Vol] 104 mmol/L Normal 98-107 [facility] Comment on above: Performed By: #### C MP, TSH #### [facility] [address] [address] [address] Mary Herzog CO2 [Moles/Vol] 29.5 mmol/L Normal 21.0-32.0 [facility] Comment on above: Performed By: #### C MP, TSH #### [facility] [address] [address] [address] Mary Herzog Creatinine [Mass/Vol] 1.03 mg/dL Critically high 0.55-1.02 [facility] Comment on above: Performed By: #### C MP, TSH #### [facility] [address] [address] [address] Mary Herzog EGFR-AF SALVADOREAN >60 Normal >=60 [facility] Comment on above: Performed By: #### C MP, TSH #### [facility] [address] [address] [address] Mary Herzog EGFR-NON AF SALVADOREAN 52 mL/min/1.73m2 Critically low >=60 [facility] Comment on above: Performed By: #### C MP, TSH #### [facility] [address] [address] [address] Mary Herzog Globulin (S) [Mass/Vol] 3.4 g/dL Normal T [facility] Comment on above: Performed By: #### C MP, TSH #### [facility] [address] [address] [address] Mary Herzog Glucose [Mass/Vol] 104 mg/dL Normal 74-106 [facility] Comment on above: Performed By: #### C MP, TSH #### [facility] [address] [address] [address] Mary Herzog Potassium [Moles/Vol] 4.1 mmol/L Normal 3.5-5.1 [facility] Comment on above: Performed By: #### C MP, TSH #### [facility] [address] [address] [address] Mary Herzog Protein [Mass/Vol] 7.1 g/dL Normal 6.4-8.2 [facility] Comment on above: Performed By: #### C MP, TSH #### [facility] [address] [address] [address] Mary Herzog Sodium [Moles/Vol] 142 mmol/L Normal 136-145 [facility] Comment on above: Performed By: #### C MP, TSH #### [facility] [address] [address] [address] Mary Herzog Urea nitrogen [Mass/Vol] 19.0 mg/dL Critically high 7.0-18.0 [facility] Comment on above: Performed By: #### C MP, TSH #### [facility] [address] [address] [address] Mary Herzog Urea nitrogen/Creatinine [Mass ratio] 18.4 mg/mg Normal [facility] Comment on above: Performed By: #### C MP, TSH #### [facility] [address] [address] [address] Mary Herzog TSHon 07-06-2022 TSH 1.684 uIU/mL Normal 0.358-3.740 [facility] Comment on above: Performed By: #### C MP, TSH #### [facility] [address] [place] [address] Dr. Mary Herzog VITAMIN B12on 07-06-2022 Cobalamin (Vitamin B12) [Mass/Vol] 1021.0 pg/mL Critically high 193.0-986.0 [facility] Comment on above: Performed By: #### V ITB12 #### [facility] [address] [address] [address] Mary Herzog Comprehensive Metabolic Pane sandi 06-13-2022 Albumin [Mass/Vol] 4.4 g/dL Normal 3.5-5.7 [facility] Comment on above: Performed By: #### C MP, SCAN CBC, LDH #### [facility] [address] [place] [address] [place] Albumin/Globulin [Mass ratio] 2.1 {ratio} Normal [facility] Comment on above: Performed By: #### C MP, SCAN CBC, LDH #### [facility] [address] ALP [Catalytic activity/Vol] 66 U/L Normal 34-104 [facility] Comment on above: Performed By: #### C MP, SCAN CBC, LDH #### [facility] [address] [place] [address] [place] ALT [Catalytic activity/Vol] 13 U/L Normal 7-52 [facility] Comment on above: Performed By: #### C MP, SCAN CBC, LDH #### [facility] [address] Anion gap [Moles/Vol] 11.0 mmol/L Normal 6.0-15.0 [facility] Comment on above: Performed By: #### C MP, SCAN CBC, LDH #### [facility] [address] AST [Catalytic activity/Vol] 20 U/L Normal 13-39 [facility] Comment on above: Performed By: #### C MP, SCAN CBC, LDH #### [address] Bilirubin [Mass/Vol] 0.4 mg/dL Normal 0.3-1.0 [facility] Comment on above: Performed By: #### C MP, SCAN CBC, LDH #### [address] Calcium [Mass/Vol] 9.6 mg/dL Normal 8.6-10.3 [facility] Comment on above: Performed By: #### C MP, SCAN CBC, LDH #### [address] Chloride [Moles/Vol] 101 mmol/L Normal 98-107 [facility] Comment on above: Performed By: #### C MP, SCAN CBC, LDH #### [address] CO2 [Moles/Vol] 31.1 mmol/L High 21.0-31.0 [facility] Comment on above: Performed By: #### C MP, SCAN CBC, LDH #### [facility] [address] Creatinine [Mass/Vol] 1.05 mg/dL Normal 0.60-1.20 [facility] Comment on above: Performed By: #### C MP, SCAN CBC, LDH #### [facility] [address] [place] [address] Creatinine Clr Calc Pharmacy 41.79 [facility] Comment on above: Performed By: #### C MP, SCAN CBC, LDH #### [address] GFR/1.73 sq M.predicted MDRD (S/P/Bld) [Vol rate/Area] 55.410 mL/min/{1.73_m2} [facility] Comment on above: Performed By: #### C MP, SCAN CBC, LDH #### [facility] [address] [place] [address] Globulin (S) [Mass/Vol] 2.1 g/dL Normal [facility] Comment on above: Performed By: #### C MP, SCAN CBC, LDH #### [address] Glucose [Mass/Vol] 108 mg/dL Normal 74-109 [facility] Comment on above: Result Comment: [facility] Glucose Reference Range is dependent on time and content of last meal. Glucose of more than 200 mg/dL in a nonstressed, ambulatory subject supports the diagnosis of Diabetes Mellitus. ADA recommended reference range Performed By: #### C MP, SCAN CBC, LDH #### [address] Potassium [Moles/Vol] 4.1 mmol/L Normal 3.5-5.1 [facility] Comment on above: Performed By: #### C MP, SCAN CBC, LDH #### [address] Protein [Mass/Vol] 6.5 g/dL Normal 6.4-8.9 [facility] Comment on above: Performed By: #### C MP, SCAN CBC, LDH #### [address] Sodium [Moles/Vol] 139 mmol/L Normal 136-145 [facility] Comment on above: Performed By: #### C MP, SCAN CBC, LDH #### [facility] [address] [place] [address] Urea nitrogen [Mass/Vol] 19 mg/dL Normal 7-25 [facility] Comment on above: Performed By: #### C MP, SCAN CBC, LDH #### [address] LDH Lactate Dehydrogenaseon 06-13-2022 LDH Lactate Dehydrogenase 150 U/L Normal 140-271 [facility] Comment on above: Result Comment: PERF ORMED BY: [place] [address] PATHOLOGIST [employer]TING MACHINE OPERATOR TOMAS LUCIA M.D. Performed By: #### C MP, SCAN CBC, LDH #### [address] Scan and CBCon 06-13-2022 Anisocytosis Ql (Bld) Slight Normal [facility] Comment on above: Performed By: #### C MP, SCAN CBC, LDH #### [address] Basophils (Bld) [#/Vol] 0.1 10*3/uL Normal 0.0-0.2 [facility] Comment on above: Performed By: #### C MP, SCAN CBC, LDH #### [address] Basophils/100 WBC (Bld) 0.6 % Normal . [facility] Comment on above: Performed By: #### C MP, SCAN CBC, LDH #### [address] Eosinophils (Bld) [#/Vol] 0.4 10*3/uL Normal 0.0-0.45 [facility] Comment on above: Performed By: #### C MP, SCAN CBC, LDH #### [address] Eosinophils/100 WBC (Bld) 2.2 % Normal . [facility] Comment on above: Performed By: #### C MP, SCAN CBC, LDH #### [address] Erythrocyte distribution width (RBC) [Ratio] 13.3 % Normal 11.9-15.3 [facility] Comment on above: Performed By: #### C MP, SCAN CBC, LDH #### [address] Hematocrit (Bld) [Volume fraction] 43.4 % Normal 34.0-46.4 [facility] Comment on above: Performed By: #### C MP, SCAN CBC, LDH #### [address] Hemoglobin (Bld) [Mass/Vol] 14.3 g/dL Normal 11.8-15.4 [facility] Comment on above: Performed By: #### C MP, SCAN CBC, LDH #### [address] Lymphocytes (Bld) [#/Vol] 12.4 10*3/uL High 1.00-4.8 [facility] Comment on above: Performed By: #### C MP, SCAN CBC, LDH #### [address] Lymphocytes/100 WBC (Bld) 67.2 % Normal . [facility] Comment on above: Performed By: #### C MP, SCAN CBC, LDH #### [address] MCH (RBC) [Entitic mass] 29.6 pg Normal 24.7-34.3 [facility] Comment on above: Performed By: #### C MP, SCAN CBC, LDH #### [address] MCV (RBC) [Entitic vol] 89.9 fL Normal 80-100 [facility] Comment on above: Performed By: #### C MP, SCAN CBC, LDH #### [address] Mean Corpuscular HGB Conc 33.0 g/dL Normal 32.0-35.0 [facility] Comment on above: Performed By: #### C MP, SCAN CBC, LDH #### [address] Microcytosis Slight Normal [facility] Comment on above: Performed By: #### C MP, SCAN CBC, LDH #### [address] Monocytes (Bld) [#/Vol] 0.8 10*3/uL Normal 0.0-0.8 [facility] Comment on above: Performed By: #### C MP, SCAN CBC, LDH #### [address] Monocytes/100 WBC (Bld) 4.6 % Normal . [facility] Comment on above: Performed By: #### C MP, SCAN CBC, LDH #### [address] Neutrophils (Bld) [#/Vol] 4.7 10*3/uL Normal 1.8-7.7 [facility] Comment on above: Performed By: #### C MP, SCAN CBC, LDH #### [address] Neutrophils/100 WBC (Bld) 25.4 % Normal . [facility] Comment on above: Performed By: #### C MP, SCAN CBC, LDH #### [address] NRBC% 0.1 /100{WBC} Normal 0-0.5 [facility] Comment on above: Performed By: #### C MP, SCAN CBC, LDH #### [address] Platelet Estimate Normal Normal Normal [facility] Comment on above: Performed By: #### C MP, SCAN CBC, LDH #### [address] Platelet mean volume (Bld) [Entitic vol] 9.5 fL Normal 6.3-10.7 [facility] Comment on above: Performed By: #### C MP, SCAN CBC, LDH #### [address] Platelet Morphology Normal Normal Normal [facility] Comment on above: Result Comment: PERF ORMED BY: [place] [address] PATHOLOGIST [employer] FELTING MACHINE OPERATOR TOMAS LUCIA M.D. Performed By: #### C MP, SCAN CBC, LDH #### [facility] [address] [place] [address] [place] Platelets (Bld) [#/Vol] 240 10*3/uL Normal 150-450 [facility] Comment on above: Performed By: #### C MP, SCAN CBC, LDH #### [facility] [address] [place] [address] [place] RBC (Bld) [#/Vol] 4.83 10*6/uL Normal 3.60-5.00 [facility] Comment on above: Performed By: #### C MP, SCAN CBC, LDH #### [place] [address] [place] Smudge Cells Moderate Normal [facility] Comment on above: Performed By: #### C MP, SCAN CBC, LDH #### [facility] [address] [place] [address] [place] WBC (Bld) [#/Vol] 18.4 10*3/uL High 3.8-11.6 [facility] Comment on above: Performed By: #### C MP, SCAN CBC, LDH #### [address] CBC AUTO DIFFon 05-11-2022 BASO # 0.1 103/ul Normal 0.0-0.1 [facility] Comment on above: Performed By: #### C BC #### [facility] [address] [address] [address] Mary Herzog Basophils/100 WBC (Bld) 0.6 % Normal 0.2-2.0 [facility] Comment on above: Performed By: #### C BC #### [facility] [address] [address] [address] Mary Herzog EO # 0.3 103/ul Normal 0.0-0.7 [facility] Comment on above: Performed By: #### C BC #### [facility] [address] [address] [address] Mary Herzog Eosinophils/100 WBC (Bld) 1.9 % Normal 0.9-7.0 [facility] Comment on above: Performed By: #### C BC #### [facility] [address] [place] [address] Dr. Mary Herzog Erythrocyte distribution width (RBC) [Ratio] 13.1 % Normal 11.0-15.0 [facility] Comment on above: Performed By: #### C BC #### [facility] [address] [place] [address] Dr. Mary Herzog Hematocrit (Bld) [Volume fraction] 46.7 % Normal 36.0-48.0 [facility] Comment on above: Performed By: #### C BC #### [facility] [address] [place] [address] Dr. Mary Herzog Hemoglobin (Bld) [Mass/Vol] 15.1 g/dL Normal 12.0-16.0 [facility] Comment on above: Performed By: #### C BC #### [facility] [address] [place] [address] Dr. Mary Herzog IG # 0.05 10e3/ul Critically high 0.00-0.03 [facility] Comment on above: Performed By: #### C BC #### [facility] [address] [place] [address] Dr. Mary Herzog IG % 0.3 % Normal 0.0-0.5 [facility] Comment on above: Performed By: #### C BC #### [facility] [address] [place] [address] Dr. Mary Herzog LYMPH # 10.4 103/ul Critically high 1.2-3.8 [facility] Comment on above: Performed By: #### C BC #### [facility] [address] [place] [address] Dr. Mary Herzog Lymphocytes/100 WBC (Bld) 56.5 % Normal 20.5-60.0 [facility] Comment on above: Performed By: #### C BC #### [facility] [address] [place] [address] Dr. Mary Herzog MANUAL DIFF REQ NO Normal [facility] Comment on above: Performed By: #### C BC #### [facility] [address] [place] [address] Dr. Mary Herzog MCH (RBC) [Entitic mass] 29.5 pg Normal 26.7-34.0 [facility] Comment on above: Performed By: #### C BC #### [facility] [address] [place] [address] Dr. Mary Herzog MCHC (RBC) [Mass/Vol] 32.3 g/dL Normal 29.9-35.2 [facility] Comment on above: Performed By: #### C BC #### [facility] [address] [place] [address] Dr. Mary Herzog MCV (RBC) [Entitic vol] 91.2 fL Normal 81.0-99.0 [facility] Comment on above: Performed By: #### C BC #### [facility] [address] [place] [address] Dr. Mary Herzog MONO # 0.8 103/ul Normal 0.3-0.8 [facility] Comment on above: Performed By: #### C BC #### [facility] [address] [place] [address] Dr. Mary Herzog Monocytes/100 WBC (Bld) 4.4 % Normal 1.7-12.0 [facility] Comment on above: Performed By: #### C BC #### [facility] [address] [place] [address] Dr. Mary Herzog NEUT # 6.7 103/ul Critically high 1.4-6.5 [facility] Comment on above: Performed By: #### C BC #### [facility] [address] [place] [address] Dr. Mary Herzog Neutrophils/100 WBC (Bld) 36.3 % Critically low 43.0-75.0 [facility] Comment on above: Performed By: #### C BC #### [facility] [address] [address] [address] Mary Herzog Platelet mean volume (Bld) [Entitic vol] 10.9 fL Normal 9.5-13.5 [facility] Comment on above: Performed By: #### C BC #### [facility] [address] [address] [address] Mary Herzog PLT 279 103/ul Normal 150-450 [facility] Comment on above: Performed By: #### C BC #### [facility] [address] [address] [address] Mary Herzog RBC 5.12 106/ul Normal 4.20-5.40 [facility] Comment on above: Performed By: #### C BC #### [facility] [address] [place] [address] Dr. Mary Herzog WBC 18.3 103/ul Critically high 4.0-11.0 [facility] Comment on above: Performed By: #### C BC #### [facility] [address] [place] [address] Dr. Mary Herzog FERRITINon 05-11-2022 Ferritin [Mass/Vol] 97.0 ng/mL Normal 8.0-252.0 [facility] Comment on above: Performed By: #### F ERR #### [facility] [address] [place] [address] Dr. Mary Herzog PROF CHEM 8 (BAS METB)on Anion gap [Moles/Vol] 11.7 mmol/L Normal [facility] Comment on above: Performed By: #### V [id number] #### [facility] [address] [address] [address] Mary Herzog Calcium [Mass/Vol] 10.1 mg/dL Normal 8.5-10.1 [facility] Comment on above: Performed By: #### V [id number] #### [facility] [address] [place] [address] Dr. Mary Herzog Chloride [Moles/Vol] 101 mmol/L Normal 98-107 [facility] Comment on above: Performed By: #### V [id number] #### [facility] [address] [address] [address] Mary Herzog CO2 [Moles/Vol] 30.7 mmol/L Normal 21.0-32.0 [facility] Comment on above: Performed By: #### V [id number] #### [facility] [address] [address] [address] Mary Herzog Creatinine [Mass/Vol] 0.97 mg/dL Normal 0.55-1.02 [facility] Comment on above: Performed By: #### V [id number] #### [facility] [address] [address] [address] Mary Herzog EGFR-AF SALVADOREAN >60 Normal >=60 [facility] Comment on above: Performed By: #### V [id number] #### [facility] [address] [address] [address] Mary Herzog EGFR-NON AF SALVADOREAN 56 mL/min/1.73m2 Critically low >=60 [facility] Comment on above: Performed By: #### V [id number] #### [facility] [address] [address] [address] Mary Herzog Glucose [Mass/Vol] 138 mg/dL Critically high 74-106 [facility] Comment on above: Performed By: #### V [id number] #### [facility] [address] [address] [address] Mary Herzog Potassium [Moles/Vol] 4.4 mmol/L Normal 3.5-5.1 [facility] Comment on above: Performed By: #### V [id number] #### [facility] [address] [address] [address] Mary Herzog Sodium [Moles/Vol] 139 mmol/L Normal 136-145 [facility] Comment on above: Performed By: #### V [id number] #### [facility] [address] [address] [address] Mary Herzog Urea nitrogen [Mass/Vol] 21.0 mg/dL Critically high 7.0-18.0 [facility] Comment on above: Performed By: #### V [id number] #### [facility] [address] [address] [address] Mary Herzog Urea nitrogen/Creatinine [Mass ratio] 21.6 mg/mg Normal [facility] Comment on above: Performed By: #### V [id number] #### [facility] [address] [address] [address] Mary Herzog TSHon 05-11-2022 TSH 1.796 uIU/mL Normal 0.358-3.740 [facility] Comment on above: Performed By: #### V [id number] #### [facility] [address] [address] [address] Mary Herzog Basophils Auto (Bld) [#/Vol] Ordered By: Sherwin Yepez on 10-17-2021 Basophils (Bld) [#/Vol] 0.1 10*3/uL 0.0-0.2 [facility] Basophils/100 WBC Auto (Bld) Ordered By: Sherwin Yepez on 10-17-2021 Basophils/100 WBC (Bld) 0.4 % . [facility] Blood hemoglobin measurement (mass/volume)Ordered By: Sherwin Yepez on 10-17-2021 Hemoglobin (Bld) [Mass/Vol] 14.4 g/dL 11.8-15.4 [facility] Blood leukocytes automated c ount (number/volume)Ordered By: Sherwin Yepez on 10-17-2021 WBC (Bld) [#/Vol] 19.6 10*3/uL 4.5-11.0 [facility] Creatinine and Glomerular fi ltration rate.predicted panel (S/P/Bld)Ordered By: Sherwin Yepez on 10-17-2021 Creatinine [Mass/Vol] 0.97 mg/dL 0.44-1.03 [facility] Eosinophils Auto (Bld) [#/Vo l]Ordered By: Sherwin Yepez on 10-17-2021 Eosinophils (Bld) [#/Vol] 0.0 10*3/uL 0.0-0.45 [facility] Eosinophils/100 WBC Auto (Bl d)Ordered By: Sherwin Yepez on 10-17-2021 Eosinophils/100 WBC (Bld) 0.0 % . [facility] Erythrocyte distribution wid th Auto (RBC) [Ratio]Ordered By: Sherwin Yepez on 10-17-2021 Erythrocyte distribution width (RBC) [Ratio] 13.8 % 11.9-15.3 [facility] Estimated glomerular filtrat ion rate (GFR) non- AmericanOrdered By: Sherwin Yepez on 10-17-2021 GFR/1.73 sq M.predicted among non-blacks MDRD (S/P/Bld) [Vol rate/Area] 56 mL/Min [facility] Hematocrit Auto (Bld) [Volum e fraction]Ordered By: Sherwin Yepez on 10-17-2021 Hematocrit (Bld) [Volume fraction] 43.4 % 34.0-46.4 [facility] Laboratory - Hematology and Cell countsOrdered By: Sherwin Yepez on 10-17-2021 Nucleated RBC/100 WBC (Bld) [Ratio] 0.0 % 0-0.5 [facility] Lymphocytes Auto (Bld) [#/Vo l]Ordered By: Sherwin Yepez on 10-17-2021 Lymphocytes (Bld) [#/Vol] 5.7 10*3/uL 1.00-4.8 [facility] Lymphocytes/100 WBC Auto (Bl d)Ordered By: Sherwin Yepez on 10-17-2021 Lymphocytes/100 WBC (Bld) 28.9 % . [facility] MCH Auto (RBC) [Entitic mass ]Ordered By: Sherwin Yepez on 10-17-2021 MCH (RBC) [Entitic mass] 30.0 pg 24.7-34.3 [facility] MCHC Auto (RBC) [Mass/Vol]Or dered By: Sherwin Yepez on 10-17-2021 MCHC (RBC) [Mass/Vol] 33.0 g/dL 32.0-35.0 [facility] MCV Auto (RBC) [Entitic vol] Ordered By: Sherwin Yepez on 10-17-2021 MCV (RBC) [Entitic vol] 90.7 fL 80-100 [facility] Monocytes Auto (Bld) [#/Vol] Ordered By: Sherwin Yepez on 10-17-2021 Monocytes (Bld) [#/Vol] 1.2 10*3/uL 0.0-0.8 [facility] Monocytes/100 WBC Auto (Bld) Ordered By: Sherwin Yepez on 10-17-2021 Monocytes/100 WBC (Bld) 5.9 % . [facility] Neutrophils Auto (Bld) [#/Vo l]Ordered By: Sherwin Yepez on 10-17-2021 Neutrophils (Bld) [#/Vol] 12.7 10*3/uL 1.8-7.7 [facility] Neutrophils/100 WBC Auto (Bl d)Ordered By: Sherwin Yepez on 10-17-2021 Neutrophils/100 WBC (Bld) 64.8 % . [facility] No Panel InformationOrdered By: Sherwin Yepez on 10-17-2021 Estimated GFR () > 60 mL/Min [facility] Comment on above: GFR estimated refere nce range: According to KDOQI guidelines, <60 ml/min/1.73m2 is sufficient to diagnose a patient with chronic kidney disease. Pharmacy Creatinine Clearance (Chem 42.09 [facility] Platelet Estimate Normal Normal [facility] Platelet Morphology Comment Normal Normal [facility] Platelet mean volume Auto (B ld) [Entitic vol]Ordered By: Sherwin Yepez on 10-17-2021 Platelet mean volume (Bld) [Entitic vol] 9.8 fL 6.3-10.7 [facility] Platelets Auto (Bld) [#/Vol] Ordered By: Sherwin Yepez on 10-17-2021 Platelets (Bld) [#/Vol] 238 10*3/uL 150-450 [facility] RBC Auto (Bld) [#/Vol]Ordere d By: Sherwin Yepez on 10-17-2021 RBC (Bld) [#/Vol] 4.79 10*6/uL 3.60-5.00 [facility] RBC morphologyOrdered By: Wolf Yepez on 10-17-2021 RBC morphology finding Nom (Bld) N/A [facility] Serum or plasma chloride soham surement (moles/volume)Ordered By: Sherwin Yepez on 10-17-2021 Chloride [Moles/Vol] 100 mmol/L 95-114 [facility] Serum or plasma potassium me asurement (moles/volume)Ordered By: Sherwin Yepez on 10-17-2021 Potassium [Moles/Vol] 4.9 mmol/L 3.5-5.1 [facility] Serum or plasma sodium measu rement (moles/volume)Ordered By: Sherwin Yepez on 10-17-2021 Sodium [Moles/Vol] 133 mmol/L 136-146 [facility] Serum or plasma total carbon dioxide measurement (moles/volume)Ordered By: Sherwin Yepez on 10-17-2021 CO2 [Moles/Vol] 25.3 mmol/L 22.0-30.0 [facility] Serum or plasma urea nitroge n measurement (mass/volume)Ordered By: Sherwin Yepez on 10-17-2021 Urea nitrogen [Mass/Vol] 16 mg/dL 9-23 [facility] COVID-19 Positive/NegativeOr dered By: Sherwni Yepez on 10-12-2021 SARS-CoV-2 (COVID-19) N gene RUSSEL+probe Ql (Resp) Negative Negative [facility] Comment on above: Testing for SARS-CoV -2 by RT-PCR This test was developed and its performance characteristics determined by [employer] and validated at the [facility]. This test has not been FDA cleared [...] on 10-06-2021 Basophils (Bld) [#/Vol] N/A [facility] Basophils/100 WBC Auto (Bld) Ordered By: Sherwin Yepez on 10-06-2021 Basophils/100 WBC (Bld) N/A [facility] Basophils/100 WBC (Bld) 1 % 0-2 [facility] Blood hemoglobin measurement (mass/volume)Ordered By: Sherwin Yepez on 10-06-2021 Hemoglobin (Bld) [Mass/Vol] 14.7 g/dL 11.8-15.4 [facility] Blood leukocytes automated c ount (number/volume)Ordered By: Sherwin Yepez on 10-06-2021 WBC (Bld) [#/Vol] 17.0 10*3/uL 4.5-11.0 [facility] Creatinine and Glomerular fi ltration rate.predicted panel (S/P/Bld)Ordered By: Sherwin Yepez on 10-06-2021 Creatinine [Mass/Vol] 0.89 mg/dL 0.44-1.03 [facility] Eosinophils Auto (Bld) [#/Vo l]Ordered By: Sherwin Yepez on 10-06-2021 Eosinophils (Bld) [#/Vol] N/A [facility] Eosinophils/100 WBC Auto (Bl d)Ordered By: Sherwin Yepez on 10-06-2021 Eosinophils/100 WBC (Bld) N/A [facility] Erythrocyte distribution wid th Auto (RBC) [Ratio]Ordered By: Sherwin Yepez on 10-06-2021 Erythrocyte distribution width (RBC) [Ratio] 13.9 % 11.9-15.3 [facility] Estimated glomerular filtrat ion rate (GFR) non- AmericanOrdered By: Sherwin Yepez on 10-06-2021 GFR/1.73 sq M.predicted among non-blacks MDRD (S/P/Bld) [Vol rate/Area] > 60 mL/Min [facility] Hematocrit Auto (Bld) [Volum e fraction]Ordered By: Sherwin Yepez on 10-06-2021 Hematocrit (Bld) [Volume fraction] 45.0 % 34.0-46.4 [facility] Laboratory - Hematology and Cell countsOrdered By: Sherwin Yepez on 10-06-2021 Nucleated RBC/100 WBC (Bld) [Ratio] 0.1 % 0-0.5 [facility] Lymphocytes Auto (Bld) [#/Vo l]Ordered By: Sherwin Ypeez on 10-06-2021 Lymphocytes (Bld) [#/Vol] N/A [facility] Lymphocytes/100 WBC Auto (Bl d)Ordered By: Sherwin Yepez on 10-06-2021 Lymphocytes/100 WBC (Bld) N/A [facility] Lymphocytes/100 WBC (Bld) 43 % 18-42 [facility] Lymphocytes/100 WBC Manual c nt (Bld)Ordered By: Sherwin Yepez on 10-06-2021 Lymphocytes/100 WBC (Bld) 21 % 0-12 [facility] MCH Auto (RBC) [Entitic mass ]Ordered By: Sherwin Yepez on 10-06-2021 MCH (RBC) [Entitic mass] 29.8 pg 24.7-34.3 [facility] MCHC Auto (RBC) [Mass/Vol]Or dered By: Sherwin Yepez on 10-06-2021 MCHC (RBC) [Mass/Vol] 32.7 g/dL 32.0-35.0 [facility] MCV Auto (RBC) [Entitic vol] Ordered By: Sherwin Yepez on 10-06-2021 MCV (RBC) [Entitic vol] 90.9 fL 80-100 [facility] Monocyte %Ordered By: Sherwin mcclendon on 10-06-2021 Monocytes/100 WBC (Bld) 2 % 1-3 [facility] Monocytes Auto (Bld) [#/Vol] Ordered By: Sherwin Yepez on 10-06-2021 Monocytes (Bld) [#/Vol] N/A [facility] Monocytes/100 WBC Auto (Bld) Ordered By: Sherwin Yepez on 10-06-2021 Monocytes/100 WBC (Bld) N/A [facility] Monocytes/100 WBC Manual cnt (Bld)Ordered By: Sherwin Yepez on 10-06-2021 Monocytes/100 WBC (Bld) 6 % 2-11 [facility] [facility] Neut[facility] Auto (Bld) [#/Vo l]Ordered By: Sherwin Yepez on 10-06-2021 Neutrophils (Bld) [#/Vol] N/A [facility] Neutrophils/100 WBC Auto (Bl d)Ordered By: Sherwin Yepez on 10-06-2021 Neutrophils/100 WBC (Bld) N/A [facility] No Panel InformationOrdered By: Sherwin Yepez on 10-06-2021 Estimated GFR () > 60 mL/Min [facility] Comment on above: GFR estimated refere nce range: According to KDOQI guidelines, <60 ml/min/1.73m2 is sufficient to diagnose a patient with chronic kidney disease. Pharmacy Creatinine Clearance (Chem N/A [facility] Platelet Estimate Normal Normal [facility] Platelet Morphology Comment Normal Normal [facility] Platelet mean volume Auto (B ld) [Entitic vol]Ordered By: Sherwin Yepez on 10-06-2021 Platelet mean volume (Bld) [Entitic vol] 9.2 fL 6.3-10.7 [facility] Platelets Auto (Bld) [#/Vol] Ordered By: Sherwin Yepez on 10-06-2021 Platelets (Bld) [#/Vol] 223 10*3/uL 150-450 [facility] RBC Auto (Bld) [#/Vol]Ordere d By: Sherwin Yepez on 10-06-2021 RBC (Bld) [#/Vol] 4.95 10*6/uL 3.60-5.00 [facility] RBC morphologyOrdered By: Wolf Yepez on 10-06-2021 RBC morphology finding Nom (Bld) Normal [facility] Segmented neutrophils/100 WB C Manual cnt (Bld)Ordered By: Sherwin Yepez on 10-06-2021 Segmented neutrophils/100 WBC (Bld) 27 % 50-70 [facility] Serum or plasma calcium tamie urement (mass/volume)Ordered By: Sherwin Yepez on 10-06-2021 Calcium [Mass/Vol] 9.5 mg/dL 8.2-10.2 [facility] Serum or plasma chloride soham surement (moles/volume)Ordered By: Sherwin Yepez on 10-06-2021 Chloride [Moles/Vol] 99 mmol/L 95-114 [facility] Serum or plasma glucose tamie urement (mass/volume)Ordered By: Sherwin Yepez on 10-06-2021 Glucose [Mass/Vol] 98 mg/dL 70-100 [facility] Comment on above: ADA recommended refe rence range Random Glucose Reference Range is dependent on time and content of last meal. Glucose of more than 200 mg/dL in a nonstressed, ambulatory subject supports the diagnosis of Diabetes Mellitus. Serum or plasma potassium me asurement (moles/volume)Ordered By: Sherwin Yepez on 10-06-2021 Potassium [Moles/Vol] 4.7 mmol/L 3.5-5.1 [facility] Serum or plasma sodium measu rement (moles/volume)Ordered By: Sherwin Yepez on 10-06-2021 Sodium [Moles/Vol] 135 mmol/L 136-146 [facility] Serum or plasma total carbon dioxide measurement (moles/volume)Ordered By: Sherwin Yepez on 10-06-2021 CO2 [Moles/Vol] 27.3 mmol/L 22.0-30.0 [facility] Serum or plasma urea nitroge n measurement (mass/volume)Ordered By: Sherwin Yepez on 10-06-2021 Urea nitrogen [Mass/Vol] 19 mg/dL - [facility] CNPFarida 12-01-2020 PAULAN Telephone (HEMASA) MARITZA ESPINO ([id number]) 1945 F Date Time Provider Department 12/01/20 ANDREI MARIO During your visit today, we recorded the following information about you: Nicole Neal [facility] 12/01/2020 9:08 AM Signed Records faxed to [facility]. Patient to follow with Dr. Beckett. Release [...] MULTIVITAMIN ORAL Take by mouth. - folic acid/multivit-min/albert tein (CENTRUM SILVER ORAL) Take by mouth. - multivit,calc,mins/i adonay/folic (ONE-A-DAY WOMENS FORMULA ORAL) Take by mouth. - lisinopril 2.5 mg tablet Problem List As Of Date 12/01/2020 Noted Resolved Lymphocytosis [D72.820] 12/11/2016 CLL (chronic lymphocytic leukemia) ([facility]) [C91.1*12/11/2017 Encounter Status:[facility] Viridiana 11-24-2020 CNPN Telephone ([employer]) MARITZA ESPINO ([id number]) 1945 F Date Time Provider Department 11/24/20 ANDREI MARIO During your visit today, we recorded the following information about you: Mai Carlson 11/24/2020 2:33 PM Signed Please sign pending lab orders for Saturday12/02/20. Thanks, VAISHALI Faye MD 11/28/2020 2:56 PM Signed Signed thanks Allergies As of Date: 11/24/2020 Noted Allergy Reaction AMOXICILLIN 11/20/2016 7 - Swelling Comments: Facial swelling RAGWEED POLLEN 11/19/2016 16 - Unknown Date Reviewed: 05/27/2020 Reviewed by: Jayson Sullivan - Fully Assessed Reason for Visit: Lab Orders [1688] Primary Visit Diagnosis:CLL (chronic lymphocytic leukemia) (HCC) [C91.10] Order(s):CBC + DIFF [SQCBCDIF] Order #: [id number] STANDING COMP METABOLIC PANEL [SQCMP] Order #: [id number] STANDING LD LACTATE DEHYDRO [SQLD6] Order #: [id number] STANDING Prescriptions as of 11/30/2020 - amitriptyline [...] MULTIVITAMIN ORAL Take by mouth. - folic acid/multivit-min/albert tein (CENTRUM SILVER ORAL) Take by mouth. - multivit,calc,mins/i adonay/folic (ONE-A-DAY WOMENS FORMULA ORAL) Take by mouth. - lisinopril 2.5 mg tablet Problem List As Of Date 11/24/2020 Noted Resolved Lymphocytosis [D72.820] 12/11/2016 CLL (chronic lymphocytic leukemia) (HCC) [C91.1*12/11/2017 Encounter Status:Closed by MAI CARLSON on 11/30/20 [facility] CNOVSPon 03-10-2021 CNOVSP Visit (SP) Office (HEMASA) MARITZA ESPINO ([id number]) 1945 F Date Time Provider Department 06/01/20 10:00 AM ANDREI MARIO During your visit today, we recorded the following information about you: Temperature Pulse Respiration Blood pressure 97.2 degrees 73/minute 18/minute 131/73 Weight Height 56.3 kg 1.579 m Andrei Mario MD 06/01/2020 10:13 AM Signed NAME: Maritza Espino CLINIC NO.: [id number] DATE OF SERVICE: June 01, 2020 Some elements in this clinic note that are critical to medical decision making have been carefully reviewed and included from a prior clinic note dated: December 09, 2019. Referring Provider: Evaristo Anguiano Additional Clinicians involved in Maritza Espino's [...] Pattern LSI BETHEL (11q22.3): Normal Pattern LSI [id number] (13q14): Normal Pattern CEP 12: Normal Pattern LSI LAMP1 (13q34): Normal Pattern IGH/CCND1 t(11;14)(q13;q32): Negative INTERPRETATION: There is a normal pattern of hybridization with each of the probes tested. 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 1. 11/21/2016 Peripheral blood Flow Cy: Specimen originated from [facility] Specimen #: [id number] Submitting Physician: FREDERICK PEREZ II, DO SPECIMEN SUBMITTED A: PERIPHERAL [...] Marker ?Normal Cell ? ? Atypical Lymphocytes _ CD2 ?T/NK cells ? ? ? Negative [...] REVIEW OF (more content not included)... Normal [facility] Comp Metabolic Panelon 06-01 Albumin [Mass/Vol] 4.3 g/dL Normal 3.9-4.9 [facility] ALP [Catalytic activity/Vol] 66 U/L Normal 34-123 [facility] ALT [Catalytic activity/Vol] 13 U/L Normal 7-38 [facility] Anion gap [Moles/Vol] 8 mmol/L Low 9-18 [facility] AST [Catalytic activity/Vol] 20 U/L Normal 13-35 [facility] Bilirubin [Mass/Vol] 0.5 mg/dL Normal 0.2-1.3 [facility] Calcium [Mass/Vol] 9.4 mg/dL Normal 8.5-10.2 [facility] Chloride [Moles/Vol] 101 mmol/L Normal 97-105 [facility] CO2 [Moles/Vol] 26 mmol/L Normal 22-30 [facility] Creatinine [Mass/Vol] 1.12 mg/dL High 0.58-0.96 [facility] eGFR- Amer. 58 Normal [facility] eGFR-All Other Races 48 . Normal [facility] Comment on above: Result Comment: eGFR (Estimated [...] GFR. Glucose [Mass/Vol] 97 mg/dL Normal 74-99 [facility] Comment on above: Result Comment: The [place] Diabetes Association (ADA) provides guidance for cutoff [...] Standards of Medical Care in Diabetes 2016, [place] [employer]. Diabetes Care. 2016.39(Suppl 1). Potassium [Moles/Vol] 4.5 mmol/L Normal 3.7-5.1 [facility] Protein [Mass/Vol] 6.4 g/dL Normal 6.3-8.0 [facility] Sodium [Moles/Vol] 135 mmol/L Low 136-144 [facility] Urea nitrogen [Mass/Vol] 32 mg/dL High 7-21 [facility] LDon 06-01-2020 LD 173 U/L Normal 135-214 [facility] Remote CBCDIF (for [facility] use o nly)on 06-01-2020 Abs Baso 0.10 k/uL Normal <0.11 [facility] Abs Addison 0.97 k/uL High <0.87 [facility] Abs Neut 5.24 k/uL Normal 1.45-7.50 [facility] Absolute nRBC <0.01 Normal <0.01 [facility] Basophils/100 WBC (Bld) 0.5 % Normal C [facility] DTYPE Auto Diff Normal [facility] Eosinophils (Bld) [#/Vol] 0.47 10*3/uL High <0.46 [facility] Eosinophils/100 WBC (Bld) 2.3 % Normal [facility] Erythrocyte distribution width (RBC) [Ratio] 13.3 % Normal 11.5-15.0 [facility] Hematocrit (Bld) [Volume fraction] 44.1 % Normal 36.0-46.0 [facility] Hemoglobin (Bld) [Mass/Vol] 14.3 g/dL Normal 11.5-15.5 [facility] Lymphocytes (Bld) [#/Vol] 13.74 10*3/uL High 1.00-4.00 [facility] Lymphocytes/100 WBC (Bld) 67.0 % Normal [facility] MCH 29.6 pG Normal 26.0-34.0 [facility] MCHC (RBC) [Mass/Vol] 32.4 g/dL Normal 30.5-36.0 [facility] MCV (RBC) [Entitic vol] 91.3 fL Normal 80.0-100.0 [facility] Monocytes/100 WBC (Bld) 4.7 % Normal C [facility] Neutrophils/100 WBC (Bld) 25.5 % Normal [facility] NRBCs 0.0 /100 WBC Normal 0 [facility] Platelet mean volume (Bld) [Entitic vol] 10.5 fL Normal 9.0-12.7 [facility] Platelets (Bld) [#/Vol] 309 10*3/uL Normal 150-400 [facility] RBC (Bld) [#/Vol] 4.83 10*6/uL Normal 3.90-5.20 [facility] WBC (Bld) [#/Vol] 20.52 10*3/uL High 3.70-11.00 [facility] CNPNon 05-27-2020 CNPN Telephone (HEMASA) MARITZA ESPINO ([id number]) 1945 F Date Time Provider Department 05/27/20 [...] (chronic lymphocytic leukemia) (HCC) [C91.10] 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] Order(s):CBC + DIFF (FOR REMOTE [facility] USE) [SQRCBCDF] Order #: [id number] FUTURE COMP METABOLIC PANEL [SQCMP] Order #: [id number] FUTURE LD LACTATE DEHYDRO [SQLD6] Order #: [id number] FUTURE Prescriptions as of 05/27/2020 Sig: METOPROLOL [...] by JAYSON SULLIVAN CNP on 05/27/20 Normal [facility] Vital Signs Date Time Vital Sign Value Performing Clinician Facility 05-27-2023 12:06-0500 Diastolic blood pressure 86 mm[Hg] Papito Tripp [facility] 05-27-2023 12:06-0500 Mean blood pressure 108 mm[Hg] Papito Tripp [facility] 05-27-2023 12:06-0500 Systolic blood pressure 151 mm[Hg] Papito Tripp [facility] 05-27-2023 12:01-0500 Blood Pressure Location [facility] Tri[facility] 05-27-2023 12:01-0500 Body temperature 97.34 [degF] Papito Tripp [facility] 05-27-2023 12:01-0500 Diastolic blood pressure 90 mm[Hg] Papito Tripp [facility] 05-27-2023 12:01-0500 Heart rate 91 /min Papito Tripp [facility] 05-27-2023 12:01-0500 Respiratory rate 14 /min Papito Tripp [facility] 05-27-2023 12:01-0500 Systolic blood pressure 158 mm[Hg] Papito Tripp [facility] 04-23-2023 08:45-0500 Body height 157.48 cm Evaristo Anguiano Other [employer] Other 04-23-2023 08:45-0500 Body mass index (BMI) [Ratio] 20.37 kg/m2 Evaristo Anguiano Other [employer] Other 04-23-2023 08:45-0500 Body weight 50.53 kg Evaristo Anguiano Other [employer] Other 04-23-2023 08:45-0500 Diastolic blood pressure 78 mm[Hg] Evaristo Anguiano Other [employer] Other 04-23-2023 08:45-0500 Systolic blood pressure 130 mm[Hg] Evaristo Anguiano Other [employer] Other 04-16-2023 13:30-0500 Body height 157.48 cm Evaristo Anguiano Other [employer] Other 04-16-2023 13:30-0500 Body mass index (BMI) [Ratio] 20.67 kg/m2 Evaristo Anguiano Other [employer] Other 04-16-2023 13:30-0500 Body weight 51.26 kg Evaristo Anguiano Other [employer] Other 04-16-2023 13:30-0500 Diastolic blood pressure 78 mm[Hg] Evaristo Anguiano Other [employer] Other 04-16-2023 13:30-0500 SaO2% (BldA) [Mass fraction] 97 % Evaristo Anguiano Other [employer] Other 04-16-2023 13:30-0500 Systolic blood pressure 120 mm[Hg] Evaristo Anguiano Other [employer] Other 02-11-2023 13:15-0500 Body height 157.48 cm Evaristo Anguiano Other [employer] Other 02-11-2023 13:15-0500 Body mass index (BMI) [Ratio] 20.81 kg/m2 Evaristo Anguiano Other [employer] Other 02-11-2023 13:15-0500 Body weight 51.62 kg Evaristo Anguiano Other [employer] Other 02-11-2023 13:15-0500 Diastolic blood pressure 87 mm[Hg] Evaristo Anguiano Other [employer] Other 02-11-2023 13:15-0500 Systolic blood pressure 149 mm[Hg] Evaristo Anguiano Other [employer] Other 01-01-2023 08:30-0400 Body height 157.48 cm Evaristo Anguiano Other [employer] Other 01-01-2023 08:30-0400 Body mass index (BMI) [Ratio] 21.32 kg/m2 Evaristo Anguiano Other [employer] Other 01-01-2023 08:30-0400 Body weight 52.89 kg Evaristo Anguiano Other [employer] Other 01-01-2023 08:30-0400 Diastolic blood pressure 84 mm[Hg] Evaristo Anguiano Other [employer] Other 01-01-2023 08:30-0400 Systolic blood pressure 154 mm[Hg] Evaristo Anguiano Other [employer] Other 07-02-2022 09:30-0400 Body height 157.48 cm Evaristo Anguiano Other [employer] Other 07-02-2022 09:30-0400 Body mass index (BMI) [Ratio] 21.58 kg/m2 Evaristo Anguiano Other [employer] Other 07-02-2022 09:30-0400 Body weight 53.52 kg Evaristo Anguiano Other [employer] Other 07-02-2022 09:30-0400 Diastolic blood pressure 72 mm[Hg] Evaristo Anguiano Other [employer] Other 07-02-2022 09:30-0400 SaO2% (BldA) [Mass fraction] 98 % Evaristo Anguiano Other [employer] Other 07-02-2022 09:30-0400 Systolic blood pressure 138 mm[Hg] Evaristo Anguiano Other [employer] Other 05-11-2022 09:45-0500 Body height 157.48 cm Evaristo Anguiano Other [employer] Other 05-11-2022 09:45-0500 Body mass index (BMI) [Ratio] 21.95 kg/m2 Evaristo Anguiano Other [employer] Other 05-11-2022 09:45-0500 Body weight 54.43 kg Evaristo Anguiano Other [employer] Other 05-11-2022 09:45-0500 Diastolic blood pressure 82 mm[Hg] Evaristo Anguiano Other [employer] Other 05-11-2022 09:45-0500 SaO2% (BldA) [Mass fraction] 97 % Evaristo Anguiano Other [employer] Other 05-11-2022 09:45-0500 Systolic blood pressure 130 mm[Hg] Evaristo Anguiano Other [employer] Other 04-05-2022 15:30-0500 Body height 157.48 cm Evaristo Anguiano Other [employer] Other 04-05-2022 15:30-0500 Body mass index (BMI) [Ratio] 21.58 kg/m2 Evaristo Anguiano Other [employer] Other 04-05-2022 15:30-0500 Body weight 53.52 kg Evaristo Anguiano Other [employer] Other 04-05-2022 15:30-0500 Diastolic blood pressure 88 mm[Hg] Evaristo Anguiano Other [employer] Other 04-05-2022 15:30-0500 SaO2% (BldA) [Mass fraction] 98 % Evaristo Anguiano Other [employer] Other 04-05-2022 15:30-0500 Systolic blood pressure 140 mm[Hg] Evaristo Anguiano Other [employer] Other 10-17-2021 15:57-0400 Body temperature 97.6 [degF] MD Evaristo Anguiano Work Phone: [facility] 10-17-2021 15:57-0400 Diastolic blood pressure 67 mm[Hg] MD Evaristo Anguiano Work Phone: [facility] 10-17-2021 15:57-0400 Heart rate 76 /min MD Evaristo Anguiano Work Phone: [facility] 10-17-2021 15:57-0400 Respiratory rate 14 /min MD Evaristo Anguiano Work Phone: [facility] 10-17-2021 15:57-0400 SaO2% (BldA) [Mass fraction] 91 % MD Evaristo Anguiano Work Phone: [facility] 10-17-2021 15:57-0400 Systolic blood pressure 112 mm[Hg] MD Evaristo Anguiano Work Phone: [facility] 10-17-2021 09:45-0400 Body height 160.02 cm MD Evaristo Anguiano Work Phone: [facility] 10-17-2021 08:42-0400 Inhaled oxygen flow rate 2 L/min MD Evaristo Anguiano Work Phone: [facility] 10-17-2021 05:08-0400 Body weight 55.3 kg MD Evaristo Anguiano Work Phone: [facility] 10-16-2021 11:25-0400 Body mass index (BMI) [Ratio] 20 kg/m2 MD Evaristo Anguiano Work Phone: [facility] Encounters Encounter Date Encounter Type Care Provider Facility Start: 05-27-2023 ambulatory Papito Busch lity:[facility] Start: 05-27-2023 End: 05-27-2023 Patient encounter procedure Papito Tripp [facility] Start: 04-30-2023 End: 04-30-2023 ambulatory Evaristo Anguiano Other [employer] Other Start: 04-30-2023 Telephone encounter Evaristo Anguiano [facility] Start: 04-29-2023 ambulatory Mohamajeovany Sterling y:[facility] Start: 04-23-2023 End: 04-23-2023 ambulatory Evaristo Anguiano Other [employer] Other Start: 04-23-2023 Office outpatient visit 15 minutes Evaristo Anguiano [facility] Start: 04-16-2023 End: 04-16-2023 ambulatory Evaristo Annmarie Other [employer] Other Start: 04-16-2023 Office outpatient visit 15 minutes Evaristo Anguiano [facility] Start: 02-11-2023 End: 02-11-2023 ambulatory Evaristo Anguiano Other [employer] Other Start: 02-11-2023 Office outpatient visit 15 minutes Evaristo Annmarie [facility] Start: 02-11-2023 Telephone encounter Evaristo Annmarie [facility] Start: 01-14-2023 End: 01-14-2023 ambulatory Evaristo Annmarie Other [employer] Other Start: 01-14-2023 Telephone encounter Evaristo Annmarie [facility] Start: 01-01-2023 End: 01-01-2023 ambulatory Evaristo Annmarie Other [employer] Other Start: 01-01-2023 Office outpatient visit 25 minutes Evaristo Anguiano [facility] Start: 08-22-2022 End: 08-22-2022 ambulatory KRISHAN GONSALEZ Facility:[facility] Start: 07-06-2022 End: 07-07-2022 ambulatory NONE LISTED REQUEST Facility:[facility] Start: 07-02-2022 End: 07-02-2022 ambulatory Evaristo Anguiano Other [employer] Other Start: 07-02-2022 Office outpatient visit 15 minutes Evaristo Anguiano [facility] Start: 06-18-2022 ambulatory Frederick sherwood II Facility:[facility] Start: 05-18-2022 End: 05-18-2022 ambulatory Evaristo Anguiano Other [employer] Other Start: 05-18-2022 Telephone encounter Evaristo Anguiano [facility] Start: 05-17-2022 End: 05-17-2022 ambulatory Evaristo Anguiano Other [employer] Other Start: 05-17-2022 Telephone encounter Evaristo Anguiano [facility] Start: 05-11-2022 Office outpatient visit 15 minutes Evaristo Anguiano [facility] Start: 05-11-2022 End: 05-12-[address] EVARISTO ANGUAINO [facility] [email or web address] Other Start: 05-01-2022 End: 05-01-2022 ambulatory Evaristo Anguiano Other [employer] Other Start: 05-01-2022 Telephone encounter Evaristo Anguiano [facility] Start: 04-05-2022 End: 04-05-2022 ambulatory Evaristo Anguiano Other [employer] Other Start: 04-05-2022 Office outpatient visit 15 minutes Evaristo Anguiano [facility] Start: 10-16-2021 End: 10-17-2021 Admission to same day surgery center MD Evaristo Anguiano Work Phone: [facility] [place] Start: 10-12-2021 End: 10-12-2021 Patient encounter procedure MD Evaristo Anguiano Work Phone: [facility] Start: 10-06-2021 End: 10-06-2021 Patient encounter procedure MD Evaristo Anguiano Work Phone: [facility] Start: 08-31-2021 End: 08-31-2021 Departed Referred MD Evaristo Anguiano Work Phone: [facility] [place] Start: 08-29-2021 End: 08-29-2021 Patient encounter procedure MD Evaristo Anguiano Work Phone: [facility] [place] Procedures Date Procedure Procedure Detail Performing Clinician Start: 10-16-2021 Laparoscopic fundoplication MD Evaristo Anguiano Work Phone: Start: 03-25-2021 Hiatal hernia (disorder) Papito Tripp Start: 03-25-2017 Colonoscopy Papito bennett Start: 03-25-2013 Elbow region structu re (body structure) Papito Tripp Start: 08-23-1997 Gallbladder structur e (body structure) Papito Tripp Tonsillar structure (palatine) (body structure) Papito Tripp Plan of Treatment Date Care Activity Detail Author Start: 10-17-2021 Administration of pr ophylactic treatment [facility] Work Phone: Start: 10-17-2021 [facility] Work Phone: Patient referral [facility] Work Phone: Immunizations Immunization Date Immunization Notes Care Provider Karolyn miller 12-25-2022 influenza virus vaccine, unspecified formulation Papito Tripp [facility] 02-13-2022 COVID-19 Pfizer (Pediatric) Evaristo Anguiano Other [employer] Other 02-13-2022 SARS-CoV-2 (COVID-19 ) [id number] Papito Tripp [facility] 12-13-2021 influenza virus vaccine, split virus (incl. purified surface antigen) Evaristo Anguiano Other [employer] Other 12-13-2021 influenza virus vaccine, unspecified formulation Papito Tripp [facility] 01-02-2021 influenza virus vaccine, split virus (incl. purified surface antigen) Evaristo Anguiano Other [employer] Other 01-02-2021 influenza virus vaccine, unspecified formulation Papito Tripp [facility] 12-19-2020 COVID-19 mRNADelmar (Pfizer) MD Evaristo Anguiano Work Phone: [facility] Comment on above: Result Comment: 2023: [id number] 05-18-2020 COVID-19 mRNADelmar (Pfizer) MD Evaristo Anguiano Work Phone: [facility] Comment on above: Result Comment: 2023: [id number] 04-27-2020 COVID-19 mRNAGeniairnatwinsome (Pfizer) MD Evaristo Anguiano Work Phone: [facility] Comment on above: Result Comment: 2023: [id number] 11-29-2019 influenza virus vaccine, unspecified formulation Papito Tripp [facility] 12-23-2018 influenza virus vaccine, unspecified formulation Maryd Qasim [facility] 01-31-2018 pneumococcal polysaccharide vaccine, 23 valjovanna Anguiano Other [facility] 01-20-2018 influenza virus vaccine, unspecified formulation Enidamad Mouchgladys [facility] 01-21-2017 influenza virus vaccine, unspecified formulation Maryd Qasim [facility] 01-21-2017 pneumococcal conjuga te vaccine, 13 valjovanna Anguiano Other [facility] Payers Date Payer Category Payer Unknown [id number] 1957 Medicare [id number] 1957 Self-pay [id number] 1957 Unknown [id number] 1945 Unknown [id number] 2.16.84 [id number] 1945 Unknown [id number] 2.16.84 [id number] 1945 Unknown [id number] 2.16.84 [id number] 1945 Unknown [id number] 2.16.8 [id number] Unknown [id number] 2.16.84 [id number] Unknown [id number] 2.16.8 [id number] Social History Date Type Detail Facility Start: 10-06-2021 End: 05-27-2023 Tobacco smoking status NHIS [facility] [facility] [place] Start: 1945 Sex Assigned At Female F [facility] Sex Assigned At [facility] Goals Date Patient Goal Desired Activity /State Functional Status Date Assessment Result Facility 05-27-2023 Functional Status N/A [facility] 10-17-2021 Functional status Patient at Baseline [facility] Work Phone: Mental Status Date Assessment Result Facility 10-17-2021 Cognitive function Cognitive Sta tus Patient at Baseline [facility] Work Phone: Clinical Notes 06-01-2020 to 04-23-2023 Note Date & Type Note Facility 04-23-2023 Evaluation note Encounter Date Diagnosis Assessment Notes Mar, Acute diarrhea (ICD-10 - R19.7) Trial of levsin, pt requests referral to [facility] Other 01-23-2024 Evaluation note* Encounter Date Diagnosis Assessment Notes Treatment Notes Treatment Clinical Notes Mar, Acute diarrhea (ICD-10 - R19.7) advised taking Imodium 1-2x daily and resuming normal rather than a BRAT diet. Will call her on 04/18 and check on her symptoms. Pt agrees she feels well, except when she has to use BR suddenly. She was transferred to [place] in January and she is concerned this is related to a recurrance of that problem. [employer] Other 11-20-2023 Evaluation note* Encounter Date Diagnosis Assessment Notes Treatment Notes Treatment Clinical Notes Jan, Pneumatosis intestinalis (ICD-10 - K63.89) Completely resolved. Reviewed notes from [facility]. Pt is back to a normal diet [...] symptoms. Any developing patterns. Stay well hydrated. [employer] Other 10-10-2023 Evaluation note* Encounter Date Diagnosis Assessment Notes [...] intermittent and no worse. Continue daily MVI. [employer] Other 05-31-2023 NotePROCEDURE: XR ELBOW LT MIN 3 VIEWS HISTORY: Pain ; acute left elbow pain; no known injury COMPARISON: None. FINDINGS: BONES:No fracture, acute abnormality, or significant arthropathy. SOFT TISSUES:No visible soft tissue swelling. EFFUSION:None visible. OTHER: Negative. IMPRESSION: 1. No acute bone abnormality or significant degenerative joint disease. Electronically authenticated by: JUMANA YBARRA Date: 2022-08-22 09:05[facility]05-31-2023 NotePROCEDURE: XR ANKLE RT MIN [...] Electronically authenticated by: JUMANA YBARRA Date: 2022-08-22 09:01[facility]04-10-2023 Evaluation note* Encounter Date Diagnosis [...] I10) chronic - stable on present med. [employer] Other 02-24-2023 Evaluation note* Encounter Date Diagnosis Assessment Notes Treatment Notes Treatment Clinical Notes Apr, Paresthesia (ICD-10 - R20.2) [employer] Other 02-17-2023 Evaluation note* Encounter Date [...] stable. continue present meds. Due for labs. [employer] Other 01-12-2023 Evaluation note* Encounter Date [...] tolerated procedure well. Post care instructions given [employer] Other 07-26-2022 Progress note Author Sherwin Yepez [facility] October 17, 2021 8:28am Note Date/Time October 17, 2021 8:28 am [facility] [address] [place] [address] General Surgery Progress Note Signed Patient: Maritza Espino MR#: [id number] : 1945 Acct:[id number] Age/Sex: 76 / F Adm Date: 2 Loc: 4N Room: 8N3410-1 Type : [facility]: Sherwin Yepez DO Copies to: [...] Mg/0.4 Ml Syringe) 40 mg SUBCUT DAILY@1000 [facility] Stop: 10/17/22 09:59 Famotidine (Famotidine/Pf 20 Mg/2 Ml Vial) 20 mg IV-PUSH Q12HR [facility] Stop: 10/16/22 20:59 Last Admin: 10/16/21 21:53 Dose: 20 mg Hydromorphone HCl (Hydromorphone 0.5 Mg/0.5 Ml Syringe) 1 mg IV-PUSH Q3H PRN PRN Reason: Pain Hydromorphone HCl (Hydromorphone 0.5 Mg/0.5 Ml Syringe) 0.5 mg IV-PUSH Q3H PRN PRN Reason: Pain Last Admin: 10/17/21 06:37 Dose: 0.5 mg Potassium Chloride/Sodium Chloride (0.9 % Nacl-20 Meq Kcl) 1,000 mls @ 80 mls/hr IV .[id number] [facility] Stop: 10/16/22 17:07 Last Admin: 10/17/21 06:37 [...] % (Auto) 64.8, Lymph % (Auto) 28.9, Addison % (Auto) 5.9, Eos % (Auto) 0.0, Baso % (Auto) 0.4, Neut # (Auto) 12.7 H, Lymph # (Auto) 5.7 H, Addison # (Auto) 1.2 H, Eos # (Auto) [...] signed by DO Sherwin Yepez> 10/17/21 0828 [facility] Work Phone: 1(617) 852-366203-10-2021 NoteHNO ID: [id number] Author: Andrei Mario Service: ? Author Type: Physician Type: Progress Notes Filed: 06/01/2020 10:13 AM Note Text: NAME: Srinivas Maritza CLINIC NO.: [id number] DATE OF SERVICE: June 01, 2020 Some elements in this clinic note that are critical to medical decision making have been carefully reviewed and included from a prior clinic note dated: December 09, 2019. Referring Provider: Evaristo Anguiano Additional Clinicians involved in Maritzamyah Espino's care: CC: CLL intermediate risk Stage [...] today. She was formerly a patient of [facility]. There have been no treatment indications. PATHOLOGIC [...] Pattern LSI BETHEL (11q22.3): Normal Pattern LSI [id number] (13q14): Normal Pattern CEP 12: Normal Pattern LSI LAMP1 (13q34): Normal Pattern IGH/CCND1 t(11;14)(q13;q32): Negative INTERPRETATION: There is a normal pattern of hybridization with each of the probes tested. 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 1. 11/21/2016 Peripheral blood Flow Cy: Specimen originated from [facility] Specimen #: [id number] Submitting Physician: FREDERICK PEREZ II, DO SPECIMEN SUBMITTED A: PERIPHERAL [...] area is 1.57 meters (more content not included)...[facility] note No data available for this section [facility] Evaluation noteNo assessment information available [facility] Work Phone: Evaluation note* Diagnosis Onset Date Resolution Status Hiatal hernia acute [facility] Work Phone: Evaluation noteNo InformationNort [employer] Other [employer] general Narrative - Reported* Type Description Date [...] History hernia repair Hospitalization History see above [employer] Other [facility] general Narrative - Reported* Type Description Date [...] thumb Surgical History hernia repair Hospitalization History [facility], [place] 11/2-2 3 [employer] Other Hospital Discharge instructions No data available for this section [facility] Progress note No data available for this section [facility] Reason for referral (narrative)* Reason Pt has family i n Josh, Admitted to [facility] in the fall, discharge summary scanned in; diarrhea, bowel changes; did not have a colonoscopy in the fall Diagnosis 1 Acute diarrhea (R19. 7) Referral Organization [facility] [employer] Referring Provider First Name Evaristo Referring Provider Last Name Annmarie Referring Provider Specialty [facility] [employer] Referred Organization [facility] Referred Provider Naty Belle Referred Address [address], [place],[address] Referred Provider Specialty Gastroentero logy Referral Priority Routine General Notes Silvia Pereira 10:15:03 AM >received today, attachments made, waiting for notes to be locked. [employer] [facility] Other Summary Purpose Family History No Family History Records Found Relationship Condition Age at Onset Recorded Date/T elieser Not Specified Malignant neoplasm of breast Unknown father Coronary artery disease Unknown Advance Directives No Advanced Directives Records Found Advance Directive Response Recorded Date/ Time Advance [...] you Diagnosis 1 Paresthesia (R20.2) Referral Organization [facility] [employer] Referring Provider First Name Evaristo Referring Provider Last Name Annmarie Referring Provider Specialty Family Medi cine Referred Organization [facility] Referred Provider Sharon Davila Referred Address [address] [place], [place],[address] Referred Provider Specialty Neurology Referral Priority Routine Referral Appointment Date 2022-06-25 General Notes Silvia Pereira 11:05:24 AM >received today, attachments made, form filled out, referral faxed Silvia Pereira 05/31/2022 10:06:11 AM >faxed first attempt letter Silvia Pereira 06/05/2022 08:49:35 AM >RECEIVED FAX WITH APPT DATE Additional Source Comments INFORMATION SOURCE (unrecogn ized section and content) DATE CREATED AUTHOR 04/26/2021 [facility] DATE CREATED AUTHOR AUTHOR'S ORGANIZ ATION 08/31/2022 [facility] DATE CREATED AUTHOR AUTHOR'S ORGANIZ ATION 05/27/2023 [facility] DATE CREATED AUTHOR AUTHOR'S ORGANIZ ATION 06/13/2023 [facility] Care Teams (unrecognized sec tion and content) Team Status: Inactive Member Role Status Dates Evaristo Anguiano MD Primary Care Provider Active Sherwin Yepez DO Attending Provider Active Team Status: Active Member Role Status Dates Evaristo Anguiano MD Primary Care Provider Active Goals (unrecognized section and content) Goals may be documented in a n alternate sectionNo InformationNo InformationNo InformationNo InformationNo InformationNo InformationNo InformationNo InformationNo InformationNo InformationNo InformationNo InformationNo Information No data available for this section REASON FOR VISIT (unrecogniz ed section and content) mole changing, BP issuesNo I nformationtoes/fingers numblabslabs3 month Follow up6 month Follow [facility] Issues- Diarrheacontinued diarrheamessage FOR RECORDS PERTAINING TO PATIENTS WHO ARE [...] BE BASED ON THE PRIMARY CLINICAL RECORDS. [facility] [employer] [facility]. provides no warranty or guarantee of the accuracy or completeness of information in this document.
== END 2023-06-14 08:16 | disposition home or self-care (01) ==
LOC: CARD 08:19
PROVIDERS: PCP Family Medicine; Visit Provider Family Medicine
DX: I49.9 Cardiac arrhythmia, unspecified (principal)
CPT/HCPCS: 93005

== ENCOUNTER 2023-06-28 07:37 | Outpatient (REF) | payer MEDICARE, OTHER, SELFPAY ==
--- OUTSIDE RECORDS SUMMARY | 2023-06-28 07:42 | XMS_ITS | CCD ---
Author Organization [facility] Care Team Providers Care Staying Machine Operator Name Role Phone MD Dang Anguiano Primary Care Provider [phone] DO Sherwin Yepez Attending Provider Dang Anguiano Unavailable REQUEST, NONE LISTED Admitting Unavaila ble REQUEST, NONE LISTED Consulting Unavaila ble REQUEST, DR SAUNDERS LISTED Attending Unavaila oscar ANGUIANO, DR DANG De Primary Care Unavailable NATALIA PIMENTEL Admitting Unavailable NATALIA PIMENTEL Consulting Unavailable NATALIA PIMENTEL Attending Unavailable ANNMARIE, DR DANG De Primary Care Unavailable ANNMARIE, DR DANG De Primary Care Unavailable ANNMARIE, DR DANG De Consulting Unavailable ANNMARIE, DR DANG De Attending Unavailable ANNMAREI, DR DANG De Admitting Unavailable KRISHAN GONSALEZ Admitting Unavailable KRISHAN GONSALEZ Attending Unavailable TATE, DR JUMANA Lemus Consulting Unavailable ANNMARIE, DR DANG De Primary Care Unavailable KRISHAN GONSALEZ Consulting Unavailable Papito Tripp Attending Unavailable DANG ANGUIANO Primary Care Physician Sachin Perez II Admitting Unavaila ble Sachin Perez II Attending Unavaila Eugenio To Referring Unavailable Dnag Anguiano Primary Care Unavailable DO Sachin Perez II Attending Provider MD Eugenio Beckett Referring Provider Unavailable MD Dang Anguiano Primary Care Provider DO Sachin Perez II Attending Provider MD Eugenio Beckett Referring Provider Unavailable MD Dang Anguiano Primary Care Provider Allergies Allergy Classification Reported Allergen(s) Allergy Type Date of Onset Reaction(s) Facility (14 sources) Amoxicillin; Translations: [Amoxicillin] Drug Allergy 01-29-20 18 Weal (disorder) [facility] (13 sources) Penicillin Drug Allergy Unknown [employer] Other (7 sources) Pseudoephedrine Drug Allergy 03-25-19 18 Unknown [facility] [employer] Other (2 sources) Penicillins Allergy to substance 06-13-19 [facility] (2 sources) 12 Hour Decongestant Allergy to substance 06-12-19 [facility] Medications Current Medications Medication Drug Class(es) Dates Sig (Normalized) Sig (Original) aspirin 81 mg oral capsule (12 sources) Platelet Aggregation Inhibitor, Nonsteroidal Anti-inflammatory Drug [...] mg / cholecalciferol 0.01 mg oral tablet (4 sources) Vitamin D Start: 10-06-2021 take 1 [...] Diarrhea, # 30 EA, Refills(s) 4, Pharmacy: [facility]/pharmacy #[id number], 159, cm, 05/27/23 12:05:00 EST, Height/Length Dosing, 50.6, kg, 05/27/23 12:05:00 EST, Weight Dosing Start Date: 05/27/23 Status: Ordered hyoscyamine sulfate 0.125 mg oral tablet (2 sources) take 1 tablet by mouth every four hours Levsin 0.125 MG 1 tablet as needed Orally every 4 hrs Active losartan potassium 25 mg oral tablet (16 sources) Angiotensin 2 Receptor Abilio Start: 06-18-2022 take 25 mg by mouth once daily Losartan Active 25 MG PO Daily June 18, 2022 12:00am methylcellulose 2000 mg powder for oral suspension (1 source) Start: 05-27-2023 take 2 g by mouth twice daily Citrucel 2 g/19 g oral powder 2 gm, Oral, BID, # 507 gm, Refills(s) 3, [id number], cm, 05/27/23 12:05:00 EST, Height/Length Dosing, 50.6, kg, 05/27/23 12:05:00 EST, Weight Dosing Start Date: 05/27/23 Status: Ordered Methylprednisolone (2 sources) Corticosteroid Start: 06-13-2023 Methylprednisolone Active 0 PO per package directions June 13, 2023 12:00am PO PER PKG DIR for 6 days 24 hr metoprolol succinate 50 mg extended release oral tablet (4 sources) beta-Adrenergic Abilio Start: 06-16-2021 take 50 mg by mouth once daily Metoprolol Succinate Active 50 MG PO Daily June 16, 2021 12:00am Multivitamin (Multiple Vitamin) Tablet (1 source) Start: 06-16-2021 take 1 tablet by mouth once daily Multivitamin (Multiple Vitamin) Tablet Active 1 TAB PO Daily June 16, 2021 12:00am Multivitamin preparation (16 sources) Start: 06-16-2021 take 1 tablet by [...] Sig (Original) acetaminophen 325 mg oral tablet (3 sources) Start: 10-17-2021 End: 06-18-2022 take 650 mg by mouth every four hours Acetaminophen Discontinued 650 MG PO Q4H October 17, 2021 12:00am June 18, 2022 10:38am Calcium (11 sources) Phosphate Binder, Calcium Start: 06-16-2021 End: 10-06-2021 take 600 mg by mouth once daily Calcium Discontinued 600 MG PO Daily June 16, 2021 12:00am October 06, 2021 11:03am Calcium + D3 Act greer fluticasone propionate 0.05 mg/actuat metered dose nasal spray (4 sources) Corticosteroid Start: 10-06-2021 End: 06-18-2022 Fluticasone Propionate Discontinued 2 SPRAY INTRANASAL Daily October 06, 2021 12:00am June 18, 2022 10:51am Problems Problem Classification Problem Date Documented Da te Episodic/Chronic Abdominal hernia (20 sources) Hiatal hernia; Translations: [Diaphragmatic hernia without obstruction or gangrene] Onset: 4 10-17-2021 Episodic Allergic reactions (2 sources) Contact dermatitis; Translations: [Unspecified contact dermatitis, unspecified cause] 06-13-2023 Episodic Anxiety disorders (20 sources) Anxiety; Translations: [Anxiety disorder, unspecified] Chronic Bacterial infection; unspecified site (13 sources) Bacterial infectious disease; Translations: [Other specified bacterial agents as the cause of diseases classified elsewhere] Episodic Cardiac dysrhythmias (2 sources) Irregular heart beat; Translations: [Cardiac arrhythmia, unspecified] 06-13-2023 Chronic Esophageal disorders (9 sources) Gastroesophageal reflux disease [...] weight loss; Translations: [Abnormal weight loss] Onset: 4 Episodic Other screening for suspected conditions (not [...] Test Name Value Interpretation Reference Range Facility Alanine aminotransferase [En zymatic activity/volume] in Serum or PlasmaOrdered By: Nida Crain on 06-12-2023 ALT [Catalytic activity/Vol] 14 U/L 7 [facility] Albumin [Mass/volume] in Ser um or Plasma by Bromocresol green (BCG) dye binding methoOrdered By: Nida Crain on 06-12-2023 Albumin BCG dye [Mass/Vol] 4.3 g/dL 3.5-5.7 [facility] Alkaline phosphatase [Enzyma tic activity/volume] in Serum or PlasmaOrdered By: Nida Crain on 06-12-2023 ALP [Catalytic activity/Vol] 71 U/L 34-104 [facility] Anisocytosis LM Ql (Bld)Orde red By: Nida Crain on 06-12-2023 Anisocytosis Ql (Bld) Slight [facility] Aspartate aminotransferase [ Enzymatic activity/volume] in Serum or PlasmaOrdered By: Nida Crain on 06-12-2023 AST [Catalytic activity/Vol] 20 U/L 13-39 [facility] Basophils Auto (Bld) [#/Vol] Ordered By: Nida Crain on 06-12-2023 Basophils (Bld) [#/Vol] N/A [facility] Basophils/100 WBC Auto (Bld) Ordered By: Nida Crain on 06-12-2023 Basophils/100 WBC (Bld) N/A [facility] Bilirubin.total [Mass/volume ] in Serum or PlasmaOrdered By: Nida Crain on 06-12-2023 Bilirubin [Mass/Vol] 0.4 mg/dL 0.3-1.0 [facility] Calcium [Mass/volume] in Ser um or PlasmaOrdered By: Nida Crain on 06-12-2023 Calcium [Mass/Vol] 9.5 mg/dL 8.6-10.3 [facility] Carbon dioxide, total [Moles /volume] in Serum or PlasmaOrdered By: Nida Crain on 06-12-2023 CO2 [Moles/Vol] 28.3 mmol/L 21.0-31.0 [facility] Chloride [Moles/volume] in S filemon or PlasmaOrdered By: Nida Crain on 06-12-2023 Chloride [Moles/Vol] 101 mmol/L 98-107 [facility] Comprehensive Metabolic Pane sandi 06-12-2023 Albumin [Mass/Vol] 4.3 g/dL Normal 3.5-5.7 [facility] Comment on above: Performed By: #### D IFF CBC, CMP, LDH #### [facility] [address] [place] [address] [place] Albumin/Globulin [Mass ratio] 2.3 {ratio} Normal [facility] Comment on above: Performed By: #### D IFF CBC, CMP, LDH #### [facility] [address] [place] [id number] [place] ALP [Catalytic activity/Vol] 71 U/L Normal 34-104 [facility] Comment on above: Performed By: #### D IFF CBC, CMP, LDH #### [facility] [address] [place] [id number] [place] ALT [Catalytic activity/Vol] 14 U/L Normal 7-52 [facility] Comment on above: Performed By: #### D IFF CBC, CMP, LDH #### [facility] [address] [place] [address] [place] Anion gap [Moles/Vol] 14.1 mmol/L Normal 6.0-15.0 [facility] Comment on above: Performed By: #### D IFF CBC, CMP, LDH #### [facility] [address] [place] [address] [place] AST [Catalytic activity/Vol] 20 U/L Normal 13-39 [facility] Comment on above: Performed By: #### D IFF CBC, CMP, LDH #### [facility] [address] [place] [id number] [place] Bilirubin [Mass/Vol] 0.4 mg/dL Normal 0.3-1.0 [facility] Comment on above: Performed By: #### D IFF CBC, CMP, LDH #### [facility] [address] [place] [id number] [place] Calcium [Mass/Vol] 9.5 mg/dL Normal 8.6-10.3 [facility] Comment on above: Performed By: #### D IFF CBC, CMP, LDH #### [facility] [address] [place] [id number] [place] Chloride [Moles/Vol] 101 mmol/L Normal 98-107 [facility] Comment on above: Performed By: #### D IFF CBC, CMP, LDH #### [facility] [address] CO2 [Moles/Vol] 28.3 mmol/L Normal 21.0-31.0 [facility] Comment on above: Performed By: #### D IFF CBC, CMP, LDH #### [facility] [address] Creatinine [Mass/Vol] 0.87 mg/dL Normal 0.60-1.20 [facility] Comment on above: Performed By: #### D IFF CBC, CMP, LDH #### [facility] [address] Creatinine Clr Calc Pharmacy 43.51 [facility] Comment on above: Performed By: #### D IFF CBC, CMP, LDH #### [facility] [address] GFR/1.73 sq M.predicted MDRD (S/P/Bld) [Vol rate/Area] mL/min/{1.73_m2} [facility] Comment on above: Performed By: #### D IFF CBC, CMP, LDH #### [facility] [address] Globulin (S) [Mass/Vol] 1.9 g/dL Normal [facility] Comment on above: Performed By: #### D IFF CBC, CMP, LDH #### [facility] [address] Glucose [Mass/Vol] 122 mg/dL High 70-100 [facility] Comment on above: Result Comment: Edgar Glucose Reference Range is dependent on time and content of last meal. Glucose of more than 200 mg/dL in a nonstressed, ambulatory subject supports the diagnosis of Diabetes Mellitus. ADA recommended reference range Performed By: #### D IFF CBC, CMP, LDH #### [facility] [address] Potassium [Moles/Vol] 4.4 mmol/L Normal 3.5-5.1 [facility] Comment on above: Performed By: #### D IFF CBC, CMP, LDH #### [facility] [address] Protein [Mass/Vol] 6.2 g/dL Low 6.4-8.9 [facility] Comment on above: Performed By: #### D IFF CBC, CMP, LDH #### [facility] [address] Sodium [Moles/Vol] 139 mmol/L Normal 136-145 [facility] Comment on above: Performed By: #### D IFF CBC, CMP, LDH #### [facility] [address] Urea nitrogen [Mass/Vol] 20 mg/dL Normal 7-25 [facility] Comment on above: Performed By: #### D IFF CBC, CMP, LDH #### [facility] [address] Creatinine [Mass/volume] in Serum or PlasmaOrdered By: Nida Crain on 06-12-2023 Creatinine [Mass/Vol] 0.87 mg/dL 0.60-1.20 [facility] Diff and CBCon 06-12-2023 Anisocytosis Ql (Bld) Slight Normal [facility] Comment on above: Performed By: #### D IFF CBC, CMP, LDH #### [facility] [address] [place] [address] [place] Eosinophils/100 WBC (Bld) 1 % Normal 1-3 [facility] Comment on above: Performed By: #### D IFF CBC, CMP, LDH #### [facility] [address] [place] [address] [place] Erythrocyte distribution width (RBC) [Ratio] 13.2 % Normal 11.9-15.3 [facility] Comment on above: Performed By: #### D IFF CBC, CMP, LDH #### [facility] [address] Giant Platelet Tally 1 /100{WBC} Normal [facility] Comment on above: Performed By: #### D IFF CBC, CMP, LDH #### [address] Hematocrit (Bld) [Volume fraction] 43.6 % Normal 34.0-46.4 [facility] Comment on above: Performed By: #### D IFF CBC, CMP, LDH #### [address] Hemoglobin (Bld) [Mass/Vol] 14.2 g/dL Normal 11.8-15.4 [facility] Comment on above: Performed By: #### D IFF CBC, CMP, LDH #### [address] Lymphocytes/100 WBC (Bld) 78 % High 18-42 [facility] Comment on above: Performed By: #### D IFF CBC, CMP, LDH #### [address] MCH (RBC) [Entitic mass] 29.7 pg Normal 24.7-34.3 [facility] Comment on above: Performed By: #### D IFF CBC, CMP, LDH #### [address] MCV (RBC) [Entitic vol] 91.0 fL Normal 80-100 [facility] Comment on above: Performed By: #### D IFF CBC, CMP, LDH #### [address] Mean Corpuscular HGB Conc 32.6 g/dL Normal 32.0-35.0 [facility] Comment on above: Performed By: #### D IFF CBC, CMP, LDH #### [address] Microcytosis Slight Normal [facility] Comment on above: Performed By: #### D IFF CBC, CMP, LDH #### [address] Monocytes/100 WBC (Bld) 1 % Low 2-11 [facility] Comment on above: Performed By: #### D IFF CBC, CMP, LDH #### [address] Platelet Estimate Normal Normal Normal [facility] Comment on above: Performed By: #### D IFF CBC, CMP, LDH #### [facility] [address] Platelet mean volume (Bld) [Entitic vol] 9.5 fL Normal 6.3-10.7 [facility] Comment on above: Performed By: #### D IFF CBC, CMP, LDH #### [address] Platelet Morphology Normal Normal Normal [facility] Comment on above: Result Comment: PERF ORMED BY: [place] [address] PATHOLOGIST INTERNATIONAL PROJECT ENGINEER TOMAS LUCIA M.D. Performed By: #### D IFF CBC, CMP, LDH #### [address] Platelets (Bld) [#/Vol] 270 10*3/uL Normal 150-450 [facility] Comment on above: Performed By: #### D IFF CBC, CMP, LDH #### [address] RBC (Bld) [#/Vol] 4.79 10*6/uL Normal 3.60-5.00 [facility] Comment on above: Performed By: #### D IFF CBC, CMP, LDH #### [address] RBC morphology finding Nom (Bld) Normal Normal Normal [facility] Comment on above: Performed By: #### D IFF CBC, CMP, LDH #### [address] Reactive Lymphocytes 1 % Normal 0-12 [facility] Comment on above: Performed By: #### D IFF CBC, CMP, LDH #### [address] Segmented neutrophils/100 WBC (Bld) 19 % Low 50-70 [facility] Comment on above: Performed By: #### D IFF CBC, CMP, LDH #### [facility] [address] WBC (Bld) [#/Vol] 16.8 10*3/uL High 3.8-11.6 [facility] Comment on above: Performed By: #### D IFF CBC, CMP, LDH #### [facility] [address] Eosinophils Auto (Bld) [#/Vo l]Ordered By: Nida Crain on 06-12-2023 Eosinophils (Bld) [#/Vol] N/A [facility] Eosinophils/100 WBC Auto (Bl d)Ordered By: Nida Crain on 06-12-2023 Eosinophils/100 WBC (Bld) N/A [facility] Eosinophils/100 WBC Manual c nt (Bld)Ordered By: Nida Crain on 06-12-2023 Eosinophils/100 WBC (Bld) 1 % 1-3 [facility] Erythrocyte distribution wid th Auto (RBC) [Ratio]Ordered By: Nida Crain on 06-12-2023 Erythrocyte distribution width (RBC) [Ratio] 13.2 % 11.9-15.3 [facility] Giant platelets/100 leukocyt es [Ratio] in Blood by Manual countOrdered By: Nida Crain on 06-12-2023 Giant platelets/100 WBC Manual cnt (Bld) [Ratio] 1 /100{WBC} [facility] Globulin Calc (S) [Mass/Vol] Ordered By: Nida Crain on 06-12-2023 Globulin (S) [Mass/Vol] 1.9 g/dL [facility] Glucose [Mass/volume] in Ser um or PlasmaOrdered By: Nida Crain on 06-12-2023 Glucose [Mass/Vol] 122 mg/dL 70-100 [facility] Comment on above: ADA recommended refe rence rangeRandom Glucose Reference Range is dependent on time and content of last meal. Glucose of more than 200 mg/dL in a nonstressed, ambulatory subject supports the diagnosis of Diabetes Mellitus. Hematocrit Auto (Bld) [Volum e fraction]Ordered By: Nida Crain on 06-12-2023 Hematocrit (Bld) [Volume fraction] 43.6 % 34.0-46.4 [facility] Hemoglobin [Mass/volume] in BloodOrdered By: Nida Crain on 06-12-2023 Hemoglobin (Bld) [Mass/Vol] 14.2 g/dL 11.8-15.4 [facility] LDH Lactate Dehydrogenaseon 06-12-2023 LDH Lactate Dehydrogenase 144 U/L Normal 140-271 [facility] Comment on above: Result Comment: PERF ORMED BY: [place] [address] PATHOLOGIST INTERNATIONAL PROJECT ENGINEER TOMAS LUCIA M.D. Performed By: #### D IFF CBC, CMP, LDH #### [address] Lactate dehydrogenase [Enzym atic activity/volume] in Serum or Plasma by Lactate to pyOrdered By: Nida Crain on 06-12-2023 LDH Lactate to pyruvate reaction [Catalytic activity/Vol] 144 U/L 140-271 [facility] Leukocytes [#/volume] correc jose for nucleated erythrocytes in Blood by Automated counOrdered By: Nida Crain on 06-12-2023 WBC corrected for nucl RBC Auto (Bld) [#/Vol] 16.8 10*3/uL 3.8-11.6 [facility] Lymphocytes Auto (Bld) [#/Vo l]Ordered By: Nida Crain on 06-12-2023 Lymphocytes (Bld) [#/Vol] N/A [facility] Lymphocytes/100 WBC Auto (Bl d)Ordered By: Nida Crain on 06-12-2023 Lymphocytes/100 WBC (Bld) N/A [facility] Lymphocytes/100 WBC Manual c nt (Bld)Ordered By: Nida Crain on 06-12-2023 Lymphocytes/100 WBC (Bld) 78 % 18-42 [facility] MCH Auto (RBC) [Entitic mass ]Ordered By: Nida Crain on 06-12-2023 MCH (RBC) [Entitic mass] 29.7 pg 24.7-34.3 [facility] MCHC Auto (RBC) [Mass/Vol]Or dered By: Nida Crain on 06-12-2023 MCHC (RBC) [Mass/Vol] 32.6 g/dL 32.0-35.0 [facility] MCV Auto (RBC) [Entitic vol] Ordered By: Nida Crain on 06-12-2023 MCV (RBC) [Entitic vol] 91.0 fL 80-100 [facility] Microcytes LM Ql (Bld)Ordere d By: Nida Crain on 06-12-2023 Microcytes Ql (Bld) Slight [facility] Monocytes Auto (Bld) [#/Vol] Ordered By: Nida Crain on 06-12-2023 Monocytes (Bld) [#/Vol] N/A [facility] Monocytes/100 WBC Auto (Bld) Ordered By: Nida Crain on 06-12-2023 Monocytes/100 WBC (Bld) N/A [facility] Monocytes/100 WBC Manual cnt (Bld)Ordered By: Nida Crain on 06-12-2023 Monocytes/100 WBC (Bld) 1 % 2-11 [facility] Neutrophils Auto (Bld) [#/Vo l]Ordered By: Nida Crain on 06-12-2023 Neutrophils (Bld) [#/Vol] N/A [facility] Neutrophils/100 WBC Auto (Bl d)Ordered By: Nida Crain on 06-12-2023 Neutrophils/100 WBC (Bld) N/A [facility] No Panel InformationOrdered By: Nida Crain on 06-12-2023 Estimated GFR (CKD-EPI) > 60.0 mL/Min [facility] Creatinine Clearance (Chem 43.51 [facility] Nucleated erythrocytes [Pres ence] in Blood by Automated countOrdered By: Nida Crain on 06-12-2023 Nucleated RBC Auto Ql (Bld) N/A [facility] Platelet adequacy [Presence] in Blood by Light microscopyOrdered By: Nida Crain on 06-12-2023 Platelets LM Ql (Bld) Normal Normal [facility] Platelet mean volume Auto (B ld) [Entitic vol]Ordered By: Nida Crain on 06-12-2023 Platelet mean volume (Bld) [Entitic vol] 9.5 fL 6.3-10.7 [facility] Platelet morphology finding [Identifier] in BloodOrdered By: Nida Crain on 06-12-2023 Platelet morphology finding Nom (Bld) Normal Normal [facility] Platelets Auto (Bld) [#/Vol] Ordered By: Nida Crain on 06-12-2023 Platelets (Bld) [#/Vol] 270 10*3/uL 150-450 [facility] Potassium [Moles/volume] in Serum or PlasmaOrdered By: Nida Crain on 06-12-2023 Potassium [Moles/Vol] 4.4 mmol/L 3.5-5.1 [facility] Protein [Mass/volume] in Ser um or PlasmaOrdered By: Nida Crain on 06-12-2023 Protein [Mass/Vol] 6.2 g/dL 6.4-8.9 [facility] RBC Auto (Bld) [#/Vol]Ordere d By: Nida Crain on 06-12-2023 RBC (Bld) [#/Vol] 4.79 10*6/uL 3.60-5.00 [facility] RBC morphologyOrdered By: Blanca Crain on 06-12-2023 RBC morphology finding Nom (Bld) Normal Normal [facility] Segmented neutrophils/100 WB C Manual cnt (Bld)Ordered By: Nida Crain on 06-12-2023 Segmented neutrophils/100 WBC (Bld) 19 % 50-70 [facility] Serum or plasma albumin/glob ulin mass ratioOrdered By: Nida Crain on 06-12-2023 Albumin/Globulin [Mass ratio] 2.3 {ratio} [facility] Serum or plasma anion gap de terminationOrdered By: Nida Crain on 06-12-2023 Anion gap [Moles/Vol] 14.1 mmol/L 6.0-15.0 [facility] Sodium [Moles/volume] in Ser um or PlasmaOrdered By: Nida Crain on 06-12-2023 Sodium [Moles/Vol] 139 mmol/L 136-145 [facility] Urea nitrogen [Mass/volume] in Serum or PlasmaOrdered By: Nida Crain on 06-12-2023 Urea nitrogen [Mass/Vol] 20 mg/dL 7-25 [facility] Variant lymphocytes/100 WBC Manual cnt (Bld)Ordered By: Nida Crain on 06-12-2023 Variant lymphocytes/100 WBC (Bld) 1 % 0-12 [facility] WBC Auto (Bld) [#/Vol]Ordere d By: Nida Crain on 06-12-2023 WBC (Bld) [#/Vol] 16.8 10*3/uL 3.8-11.6 [facility] Ambulatory Visit Summaryon 0 05-27-2023 Ambulatory Visit Summary MARITZA ESPINO :1945 Visit Date:05/27/2023 Ambulatory Visit Instructions Your Diagnosis Diarrhea, unspecified Weight loss Burping Hiatal hernia Your Care Team Attending Physician - Qasim PORTER, Papito Jo Primary Care Physician - DANG ANGUIANO MD This Is Your Medications List [...] needed for Diarrhea Refills: 4 Pickup at [facility]/pharmacy #[id number] New methylcellulose (Citrucel 2 g/ 19 g oral powder) 2 Gram By Mouth 2 times a day Refills: 3 Pickup at [facility]/pharmacy #[id number] Unchanged aspirin (aspirin 81 mg oral [...] physician if questions or concerns Pharmacy Information [facility]/pharmacy #[id number]: [address], [place] [id number] [phone] Allergies amoxicillin (Hives) Patient Survey You may receive a survey via text or e-mail asking about your office visit. Please share your experience with us by completing your survey. We appreciate your feedback and thank you for choosing us for your care. Normal [facility] Gastroenterology Office/Clin ic Noteon 05-27-2023 Gastroenterology Office/Clinic [...] Diarrhea, # 30 EA, Refills(s) 4, Pharmacy: [facility]/pharmacy #[id number], 159, cm, 05/27/23 12:05:00 EST, Height/Length Dosing, 50.6, kg, 05/27/23 12:05:00 EST, Weight Dosing methylcellulose, 2 gm, Oral, BID, # 507 gm, Refills(s) 3, Pharmacy: [facility]/pharmacy #[id number], 159, cm, 05/27/23 12:05:00 EST, Height/Length [...] virus vaccine, inactivated 12/25/2022 Recorded SARS-CoV-2 (COVID-19) [id number] 02/13/2022 Recorded influenza virus vaccine, inactivated 12/13/2021 [...] influenza virus vaccine, inactivated 01/21/2017 Recorded Normal [facility] Comment on above: Result Comment: Elec tronically Signed By: Qasim PORTER, Papito Díaz.br\Date and Time Signed: 05/27/23 12:34 EST Physician Referralon 024 Physician Referral [phone] [id number] Normal [facility] IMMUNOFIXATION ELEC, PROTEIN ELECon 07-09-2022 Albumin [Mass/Vol] 3.7 g/dL Normal 2.9-4.4 [facility] Comment on above: Performed By: #### V ITB12 #### [facility] [address] [place] [address] Dr. Mary Herzog Albumin/Globulin [Mass ratio] 1.5 {ratio} Normal 0.7-1.7 [facility] Comment on above: Performed By: #### V ITB12 #### [facility] [address] [address] Dr[address] Mary Herzog Plqfo-8-Csekbikw 0.3 g/dL Normal 0.0-0.4 [facility] Comment on above: Performed By: #### V ITB12 #### [facility] [address] [address] [address] Mary Herzog Jhvqu-4-Jqqrcmhn 0.8 g/dL Normal 0.4-1.0 [facility] Comment on above: Performed By: #### V ITB12 #### [facility] [address] [address] [address] Mary Herzog Beta Globulin 0.9 g/dL Normal 0.7-1.3 [facility] Comment on above: Performed By: #### V ITB12 #### [facility] [address] [address] [address] Mary Herzog Gamma Globulin 0.6 g/dL Normal 0.4-1.[address] [facility] Comment on above: Performed By: #### V ITB12 #### [facility] [address] [address] [address] Mary Herzog Globulin (S) [Mass/Vol] 2.6 g/dL Normal 2.2-3.9 [facility] Comment on above: Performed By: #### V ITB12 #### [facility] [address] [place] [address] Dr. Mary Herzog Immunofixation Result, Serum Comment Normal [facility] Comment on above: Result Comment: No m onoclonality detected. Performed By: #### V ITB12 #### [facility] [address] [place] [address] Dr. Mary Herzog Immunoglobulin A, Qn, Serum 102 mg/dL Normal 64-422 [facility] Comment on above: Performed By: #### V ITB12 #### [facility] [address] [place] [address] Dr. Mary Herzog Immunoglobulin G, Qn, Serum 635 mg/dL Normal 586-1602 [facility] Comment on above: Performed By: #### V ITB12 #### [facility] [address] [place] [address] Dr. Mary Herzog Immunoglobulin M, Qn, Serum 125 mg/dL Normal 26-217 [facility] Comment on above: Performed By: #### V ITB12 #### [facility] [address] [place] [address] Dr. Mary Herzog M-Nilesh Not Observed Normal Not Observed [facility] Comment on above: Performed By: #### V ITB12 #### [facility] [address] [place] [address] Dr. Mary Herzog PDF . Normal [facility] Comment on above: Performed By: #### V ITB12 #### [facility] [address] [place] [address] Dr. Mary Herzog Please note: Comment Normal [facility] Comment on above: Result Comment: Prot ein electrophoresis scan will follow via computer, mail, or vet assistant delivery. Performed By: #### V ITB12 #### [facility] [address] [place] [address] Dr. Mary Herzog Protein [Mass/Vol] 6.3 g/dL Normal 6.0-8.5 [facility] Comment on above: Performed By: #### V ITB12 #### [facility] [address] [place] [address] Dr. Mary Herzog VITAMIN B6on 07-09-2022 Vitamin B6 29.2 ug/L Normal 3.4-65.2 [facility] Comment on above: Result Comment: Defi ciency: <3.4 Marginal: 3.4 - 5.1 Adequate: >5.1 Performed By: #### V ITAB6 #### [facility] [address] [place] [address] Dr. Mary Herzog COPPER, SERUM or PLASMAon Copper, Serum 136 ug/dL Normal 80-158 [facility] Comment on above: Result Comment: Dete ction Limit = 5 Performed By: #### V ITB12 #### [facility] [address] [place] [address] Dr. Mary Herzog MO COMPREHENSIVE PROFILEon 07-07-2022 Anti-Centromere B Antibodies <0.2 Normal 0.0-0.9 [facility] Comment on above: Performed By: #### V ITB12 #### [facility] [address] [place] [address] Dr. Mary Herzog Anti-DNA (DS) Ab Qn 1 IU/mL Normal 0-9 [facility] Comment on above: Result Comment: Nega tive <5 Equivocal 5 - 9 Positive >9 Performed By: #### V ITB12 #### [facility] [address] [place] [address] Dr. Mary Herzog Anti-Mary-1 <0.2 Normal 0.0-0.9 [facility] Comment on above: Performed By: #### V ITB12 #### [facility] [address] [place] [address] Dr. Mary Herzog Antichromatin Antibodies <0.2 Normal 0.0-0.9 [facility] Comment on above: Performed By: #### V ITB12 #### [facility] [address] [place] [address] Dr. Mary Herzog ANTIRIBOSOMAL P AB <0.2 Normal 0.0-0.9 [facility] Comment on above: Performed By: #### V ITB12 #### [facility] [address] [address] [address] Mary Herzog Antiscleroderma-70 Antibodies <0.2 Normal 0.0-0.9 [facility] Comment on above: Performed By: #### V ITB12 #### [facility] [address] [address] [address] Mary Herzog COMMENT Comment Normal [facility] Comment on above: Result Comment: Auto antibody Disease Association Condition Frequency Antinuclear Antibody, SLE, mixed connective Direct (MO-D) tissue diseases dsDNA SLE 40 - 60% Chromatin Drug induced SLE 90% SLE 48 - 97% SSA (Ro) SLE 25 - 35% Sjogren's Syndrome 40 - 70% Lupus 100% SSB (La) SLE 10% Sjogren's Syndrome 30% Sm (anti-Carlson) SLE 15 - 30% [employer] Mixed Connective Tissue Disease 95% (U1 nRNP, SLE 30 - 50% anti-ribonucleoprotein) Polymyositis and/or Dermatomyositis 20% Scl-70 (antiDNA Scleroderma (diffuse) 20 - 35% topoisomerase) Crest 13% Mary-1 Polymyositis and/or Dermatomyositis 20 - 40% Centromere B Scleroderma - Crest variant 80% Ribosomal P SLE 10 - 20% Performed By: #### V ITB12 #### [facility] [address] [place] [address] Dr. Mary Herzog [employer] Antibodies 0.2 AI Normal 0.0-0.9 [facility] Comment on above: Performed By: #### V ITB12 #### [facility] [address] [place] [address] Dr. Mary Buitragoogrmodesta'jodi Anti-SS-A <0.2 Normal 0.0-0.9 [facility] Comment on above: Performed By: #### V ITB12 #### [facility] [address] [place] [address] Dr. Mary Buitragoogrmodesta'jodi Anti-SS-B <0.2 Normal 0.0-0.9 [facility] Comment on above: Performed By: #### V ITB12 #### [facility] [address] [place] [address] Dr. Mary Herzog Carlson Antibodies <0.2 Normal 0.0-0.9 [facility] Comment on above: Performed By: #### V ITB12 #### [facility] [address] [place] [address] Dr. Mary Herzog Carlson/[employer] Antibodies <0.2 Normal 0.0-0.9 [facility] Comment on above: Performed By: #### V ITB12 #### [facility] [address] [place] [address] Dr. Mary Herzog CBC W MANUAL DIFFon 07-07-19 23 ATYPICAL LYMPH # Normal [facility] Comment on above: Performed By: #### C BCMAN #### [facility] [address] [place] [address] Dr. Mary Herzog ATYPICAL LYMPH % Normal [facility] Comment on above: Performed By: #### C BCMAN #### [facility] [address] [place] [address] Dr. Mary Herzog BAND # Normal 0.0-0.3 [facility] Comment on above: Performed By: #### C BCMAN #### [facility] [address] [place] [address] Dr. Mary Herzog BAND % Normal 0-5 [facility] Comment on above: Performed By: #### C BCMAN #### [facility] [address] [address] [address] Mary Herzog BASOM # 0.00 103/ul Normal 0.00-0.10 [facility] Comment on above: Performed By: #### C BRODY #### [facility] [address] [address] [address] Mary Herzog BASOM % 0.0 % Critically low 0.2-2.[address] [facility] Comment on above: Performed By: #### C BCCORY #### [facility] [address] [address] [address] Mary Herzog BLAST # Normal [facility] Comment on above: Performed By: #### C BRODY #### [facility] [address] [place] [address] Dr. Mary Herzog BLAST % Normal [facility] Comment on above: Performed By: #### C BRODY #### [facility] [address] [place] [address] Dr. Mary Herzog CORRECTED WBC Normal 4.0-11.0 [facility] Comment on above: Performed By: #### C BRODY #### [facility] [address] [place] [address] Dr. Mary Herzog EOS # 0.49 103/ul Normal 0.00-0.70 [facility] Comment on above: Performed By: #### C BRODY #### [facility] [address] [place] [address] Dr. Mary Herzog EOS% 3.0 % Normal 0.9-7.0 [facility] Comment on above: Performed By: #### C BRODY #### [facility] [address] [place] [address] Dr. Mary Herzog HCT 45.1 % Normal 36.0-48.0 [facility] Comment on above: Performed By: #### C BRODY #### [facility] [address] [place] [address] Dr. Mary Herzog HGB 14.5 g/dl Normal 12.0-16.0 [facility] Comment on above: Performed By: #### C BRODY #### [facility] [address] [address] [address] Mary Herzog LYMPHM # 10.89 103/ul Critically high 1.20-3.80 [facility] Comment on above: Performed By: #### C BRODY #### [facility] [address] [address] [address] Mary Herzog LYMPHM% 66.0 % Critically high 20.5-60.0 [facility] Comment on above: Performed By: #### C BRODY #### [facility] [address] [address] [address] Mary Herzog MCH 29.1 pg Normal 26.7-34.0 [facility] Comment on above: Performed By: #### C BRODY #### [facility] [address] [address] [address] Mary Herzog MCHC 32.2 g/dl Normal 29.9-35.2 [facility] Comment on above: Performed By: #### C BRODY #### [facility] [address] [address] [address] Mary Herzog MCV 90.4 fL Normal 81.0-99.0 [facility] Comment on above: Performed By: #### C BRODY #### [facility] [address] [address] [address] Mary Herzog METAMYELOCYTE # Normal [facility] Comment on above: Performed By: #### C BRODY #### [facility] [address] [address] [address] Mary Herzog METAMYELOCYTE % Normal [facility] Comment on above: Performed By: #### C BRODY #### [facility] [address] [address] [address] Mary Herzog MONOM# 0.82 103/ul Critically high 0.30-0.80 [facility] Comment on above: Performed By: #### C BRODY #### [facility] [address] [address] [address] Mary Herzog MONOM% 5.0 % Normal 1.7-12.0 [facility] Comment on above: Performed By: #### C BRODY #### [facility] [address] [place] [address] Dr. Mary Herzog MPV 10.6 fL Normal 9.5-13.5 [facility] Comment on above: Performed By: #### C BRODY #### [facility] [address] [place] [address] Dr. Mary Herzog MYELOCYTE # Normal [facility] Comment on above: Performed By: #### C BCMAN #### [facility] [address] [place] [address] Dr. Mary Herzog MYELOCYTE % Normal [facility] Comment on above: Performed By: #### C BRODY #### [facility] [address] [place] [address] Dr. Mary Herzog NRBC Normal [facility] Comment on above: Performed By: #### C BRODY #### [facility] [address] [place] [address] Dr. Mary Herzog PLT 277 103/ul Normal 150-450 [facility] Comment on above: Performed By: #### C BRODY #### [facility] [address] [place] [address] Dr. Mary Herzog RBC 4.99 106/ul Normal 4.20-5.40 [facility] Comment on above: Performed By: #### C BRODY #### [facility] [address] [place] [address] Dr. Mary Herzog RDW 12.9 % Normal 11.0-15.0 [facility] Comment on above: Performed By: #### C BRODY #### [facility] [address] [place] [address] Dr. Mary Herzog SEG # 4.29 103/ul Normal 1.40-6.50 [facility] Comment on above: Performed By: #### C BRODY #### [facility] [address] [place] [address] Dr. Mary Herzog SEG % 26.0 % Critically low 43.0-75.0 [facility] Comment on above: Performed By: #### C MARCELINOMAN #### [facility] [address] [address] [address] Mary Herzog WBC 16.5 103/ul Critically high 4.0-11.0 [facility] Comment on above: Performed By: #### C MARCELINOMAN #### [facility] [address] [place] [address] Dr. Mary Herzog GLYCOHEMOGLOBIN A1Con 2022 ADA RECOMMENDATION SEE BELOW Normal [facility] Comment on above: Result Comment: ADA RECOMMENDED LIMIT 4.0 - 6.0 ADA THERAPEUTIC TARGET < 7.0 ACTION SUGGESTED > 7.0 Performed By: #### D ATA1C #### [facility] [address] [place] [address] Dr. Mary Herzog Glucose [Mass/Vol] 117 mg/dL Normal [facility] Comment on above: Performed By: #### D ATA1C #### [facility] [address] [place] [address] Dr. Mary Herzog HbA1c (Bld) [Mass fraction] 5.7 % Normal 4.5-6.2 [facility] Comment on above: Performed By: #### D ATA1C #### [facility] [address] [place] [address] Dr. Mary Herzog PROF 14(COMP METB)on 023 Albumin [Mass/Vol] 3.7 g/dL Normal 3.4-5.0 [facility] Comment on above: Performed By: #### C NELLI, TSH #### [facility] [address] [place] [address] Dr. Mary Herzog Albumin/Globulin [Mass ratio] 1.1 {ratio} Normal [facility] Comment on above: Performed By: #### C NELLI, TSH #### [facility] [address] [place] [address] Dr. Mary Herzog ALP [Catalytic activity/Vol] 80 U/L Normal 46-116 [facility] Comment on above: Performed By: #### C NELLI, TSH #### [facility] [address] [place] [address] Dr. Mary Herzog ALT [Catalytic activity/Vol] 24 U/L Normal 14-59 [facility] Comment on above: Performed By: #### C MP, TSH #### [facility] [address] [place] [address] Dr. Mary Herzog Anion gap [Moles/Vol] 12.6 mmol/L Normal [facility] Comment on above: Performed By: #### C MP, TSH #### [facility] [address] [address] [address] Mary Herzog AST [Catalytic activity/Vol] 21 U/L Normal 15-37 [facility] Comment on above: Performed By: #### C MP, TSH #### [facility] [address] [place] [address] Dr. Mary Herzog Bilirubin [Mass/Vol] 0.5 mg/dL Normal 0.2-1.0 [facility] Comment on above: Performed By: #### C MP, TSH #### [facility] [address] [place] [address] Dr. Mary Herzog Calcium [Mass/Vol] 9.4 mg/dL Normal 8.5-10.1 [facility] Comment on above: Performed By: #### C MP, TSH #### [facility] [address] [place] [address] Dr. Mary Herzog Chloride [Moles/Vol] 104 mmol/L Normal 98-107 [facility] Comment on above: Performed By: #### C MP, TSH #### [facility] [address] [place] [address] Dr. Mary Herzog CO2 [Moles/Vol] 29.5 mmol/L Normal 21.0-32.0 [facility] Comment on above: Performed By: #### C MP, TSH #### [facility] [address] [place] [address] Dr. Mary Herzog Creatinine [Mass/Vol] 1.03 mg/dL Critically high 0.55-1.02 [facility] Comment on above: Performed By: #### C MP, TSH #### [facility] [address] [place] [address] Dr. Mary Herzog EGFR-AF POLISH >60 Normal >=60 [facility] Comment on above: Performed By: #### C MP, TSH #### [facility] [address] [address] [address] Mary Herzog EGFR-NON AF POLISH 52 mL/min/1.73m2 Critically low >=60 [facility] Comment on above: Performed By: #### C MP, TSH #### [facility] [address] [address] [address] Mary Herzog Globulin (S) [Mass/Vol] 3.4 g/dL Normal [facility] Comment on above: Performed By: #### C MP, TSH #### [facility] [address] [address] [address] Mary Herzog Glucose [Mass/Vol] 104 mg/dL Normal 74-106 [facility] Comment on above: Performed By: #### C MP, TSH #### [facility] [address] [address] [address] Mary Herzog Potassium [Moles/Vol] 4.1 mmol/L Normal 3.5-5.1 [facility] Comment on above: Performed By: #### C MP, TSH #### [facility] [address] [address] [address] Mary Herzog Protein [Mass/Vol] 7.1 g/dL Normal 6.4-8.2 [facility] Comment on above: Performed By: #### C MP, TSH #### [facility] [address] [address] [address] Mary Herzog Sodium [Moles/Vol] 142 mmol/L Normal 136-145 [facility] Comment on above: Performed By: #### C MP, TSH #### [facility] [address] [address] [address] Mary Herzog Urea nitrogen [Mass/Vol] 19.0 mg/dL Critically high 7.0-18 .0 [facility] Comment on above: Performed By: #### C MP, TSH #### [facility] [address] [address] [address] Mary Herzog Urea nitrogen/Creatinine [Mass ratio] 18.4 mg/mg Normal [facility] Comment on above: Performed By: #### C MP, TSH #### [facility] [address] [address] [address] Mary Herzog TSHon 07-06-2022 TSH 1.684 uIU/mL Normal 0.358-3.740 [facility] Comment on above: Performed By: #### C MP, TSH #### [facility] [address] [address] [address] Mary Herzog VITAMIN B12on 07-06-2022 Cobalamin (Vitamin B12) [Mass/Vol] 1021.0 pg/mL Critically high 193.0-986.0 [facility] Comment on above: Performed By: #### V ITB12 #### [facility] [address] [address] [address] Mary Herzog Comprehensive Metabolic Pane sandi 06-13-2022 Albumin [Mass/Vol] 4.4 g/dL Normal 3.5-5.7 [facility] Comment on above: Performed By: #### C MP, SCAN CBC, LDH #### [facility] [address] [place] [address] [place] Albumin/Globulin [Mass ratio] 2.1 {ratio} Normal [facility] Comment on above: Performed By: #### C MP, SCAN CBC, LDH #### [facility] [address] [id number] [place] ALP [Catalytic activity/Vol] 66 U/L Normal 34-104 [facility] Comment on above: Performed By: #### C MP, SCAN CBC, LDH #### [facility] [address] [id number] [place] ALT [Catalytic activity/Vol] 13 U/L Normal 7-52 [facility] Comment on above: Performed By: #### C MP, SCAN CBC, LDH #### [facility] [address] [id number] [place] Anion gap [Moles/Vol] 11.0 mmol/L Normal 6.0-15.0 [facility] Comment on above: Performed By: #### C MP, SCAN CBC, LDH #### [facility] [address] AST [Catalytic activity/Vol] 20 U/L Normal 13-39 [facility] Comment on above: Performed By: #### C MP, SCAN CBC, LDH #### [facility] [address] Bilirubin [Mass/Vol] 0.4 mg/dL Normal 0.3-1.0 [facility] Comment on above: Performed By: #### C MP, SCAN CBC, LDH #### [facility] [address] Calcium [Mass/Vol] 9.6 mg/dL Normal 8.6-10.3 [facility] Comment on above: Performed By: #### C MP, SCAN CBC, LDH #### [facility] [address] Chloride [Moles/Vol] 101 mmol/L Normal 98-107 [facility] Comment on above: Performed By: #### C MP, SCAN CBC, LDH #### [facility] [facility] [address] CO2 [Moles/Vol] 31.1 mmol/L High 21.0-31.0 [facility] Comment on above: Performed By: #### C MP, SCAN CBC, LDH #### [facility] [address] [place] [address] [place] Creatinine [Mass/Vol] 1.05 mg/dL Normal 0.60-1.20 [facility] Comment on above: Performed By: #### C MP, SCAN CBC, LDH #### [facility] [address] [place] [address] [place] Creatinine Clr Calc Pharmacy 41.79 Normal [facility] Comment on above: Performed By: #### C MP, SCAN CBC, LDH #### [facility] [address] [place] [address] [place] GFR/1.73 sq M.predicted MDRD (S/P/Bld) [Vol rate/Area] 55.410 mL/min/{1.73_m2} Normal [facility] Comment on above: Performed By: #### C MP, SCAN CBC, LDH #### [facility] [address] Globulin (S) [Mass/Vol] 2.1 g/dL Normal [facility] Comment on above: Performed By: #### C MP, SCAN CBC, LDH #### [address] Glucose [Mass/Vol] 108 mg/dL Normal 74-109 [facility] Comment on above: Result Comment: [facility][note 3] Glucose Reference Range is dependent on time and content of last meal. Glucose of more than 200 mg/dL in a nonstressed, ambulatory subject supports the diagnosis of Diabetes Mellitus. ADA recommended reference range Performed By: #### C MP, SCAN CBC, LDH #### [address] Potassium [Moles/Vol] 4.1 mmol/L Normal 3.5-5.1 [facility] Comment on above: Performed By: #### C MP, SCAN CBC, LDH #### [address] Protein [Mass/Vol] 6.5 g/dL Normal 6.4-8.9 [facility] Comment on above: Performed By: #### C MP, SCAN CBC, LDH #### [address] Sodium [Moles/Vol] 139 mmol/L Normal 136-145 [facility] Comment on above: Performed By: #### C MP, SCAN CBC, LDH #### [facility] [address] Urea nitrogen [Mass/Vol] 19 mg/dL Normal 7-25 [facility] Comment on above: Performed By: #### C MP, SCAN CBC, LDH #### [facility] [address] LDH Lactate Dehydrogenaseon 06-13-2022 LDH Lactate Dehydrogenase 150 U/L Normal 140-271 [facility] Comment on above: Result Comment: PERF ORMED BY: [place] [address] PATHOLOGIST INTERNATIONAL PROJECT ENGINEER TOMAS LUCIA M.D. Performed By: #### C MP, SCAN CBC, LDH #### [facility] [address] Scan and CBCon 06-13-2022 Anisocytosis Ql (Bld) Slight Normal [facility] Comment on above: Performed By: #### C MP, SCAN CBC, LDH #### [facility] [address] [place] [address] Basophils (Bld) [#/Vol] 0.1 10*3/uL Normal 0.0-0.2 [facility] Comment on above: Performed By: #### C MP, SCAN CBC, LDH #### [facility] [address] [place] [address] Basophils/100 WBC (Bld) 0.6 % Normal . [facility] Comment on above: Performed By: #### C MP, SCAN CBC, LDH #### [facility] [address] [place] [address] [place] Eosinophils (Bld) [#/Vol] 0.4 10*3/uL Normal 0.0-0.45 [facility] Comment on above: Performed By: #### C MP, SCAN CBC, LDH #### [address] Eosinophils/100 WBC (Bld) 2.2 % Normal . [facility] Comment on above: Performed By: #### C MP, SCAN CBC, LDH #### [facility] [address] Erythrocyte distribution width (RBC) [Ratio] 13.3 % Normal 11.9-15.3 [facility] Comment on above: Performed By: #### C MP, SCAN CBC, LDH #### [facility] [address] [place] [address] Hematocrit (Bld) [Volume fraction] 43.4 % Normal 34.0-46.4 [facility] Comment on above: Performed By: #### C MP, SCAN CBC, LDH #### [address] Hemoglobin (Bld) [Mass/Vol] 14.3 g/dL Normal 11.8-15.4 [facility] Comment on above: Performed By: #### C MP, SCAN CBC, LDH #### [address] Lymphocytes (Bld) [#/Vol] 12.4 10*3/uL High 1.00-4.8 [facility] Comment on above: Performed By: #### C MP, SCAN CBC, LDH #### [address] Lymphocytes/100 WBC (Bld) 67.2 % Normal . [facility] Comment on above: Performed By: #### C MP, SCAN CBC, LDH #### [address] MCH (RBC) [Entitic mass] 29.6 pg Normal 24.7-34.3 [facility] Comment on above: Performed By: #### C MP, SCAN CBC, LDH #### [address] MCV (RBC) [Entitic vol] 89.9 fL Normal 80-100 [facility] Comment on above: Performed By: #### C MP, SCAN CBC, LDH #### [address] Mean Corpuscular HGB Conc 33.0 g/dL Normal 32.0-35.0 [facility] Comment on above: Performed By: #### C MP, SCAN CBC, LDH #### [address] Microcytosis Slight Normal [facility] Comment on above: Performed By: #### C MP, SCAN CBC, LDH #### [address] Monocytes (Bld) [#/Vol] 0.8 10*3/uL Normal 0.0-0.8 [facility] Comment on above: Performed By: #### C MP, SCAN CBC, LDH #### [address] Monocytes/100 WBC (Bld) 4.6 % Normal . [facility] Comment on above: Performed By: #### C MP, SCAN CBC, LDH #### [address] Neutrophils (Bld) [#/Vol] 4.7 10*3/uL Normal 1.8-7.7 [facility] Comment on above: Performed By: #### C MP, SCAN CBC, LDH #### [address] Neutrophils/100 WBC (Bld) 25.4 % Normal . [facility] Comment on above: Performed By: #### C MP, SCAN CBC, LDH #### [address] NRBC% 0.1 /100{WBC} Normal 0-0.5 [facility] Comment on above: Performed By: #### C MP, SCAN CBC, LDH #### [address] Platelet Estimate Normal Normal Normal [facility] Comment on above: Performed By: #### C MP, SCAN CBC, LDH #### [address] Platelet mean volume (Bld) [Entitic vol] 9.5 fL Normal 6.3-10.7 [facility] Comment on above: Performed By: #### C MP, SCAN CBC, LDH #### [address] Platelet Morphology Normal Normal Normal [facility] Comment on above: Result Comment: PERF ORMED BY: [place] [address] PATHOLOGIST INTERNATIONAL PROJECT ENGINEER TOMAS LUCIA M.D. Performed By: #### C MP, SCAN CBC, LDH #### [place] [address] [place] Platelets (Bld) [#/Vol] 240 10*3/uL Normal 150-450 [facility] Comment on above: Performed By: #### C MP, SCAN CBC, LDH #### [facility] [address] RBC (Bld) [#/Vol] 4.83 10*6/uL Normal 3.60-5.00 [facility] Comment on above: Performed By: #### C MP, SCAN CBC, LDH #### [facility] [address] Smudge Cells Moderate Normal [facility] Comment on above: Performed By: #### C MP, SCAN CBC, LDH #### [facility] [address] [place] [address] WBC (Bld) [#/Vol] 18.4 10*3/uL High 3.8-11.6 [facility] Comment on above: Performed By: #### C MP, SCAN CBC, LDH #### [facility] [address] [place] [address] Smudge cell detectionOrdered By: Sachin Perez on 06-13-2022 Smudge cells LM Ql (Bld) Moderate [facility] CBC AUTO DIFFon 05-11-2022 BASO # 0.1 103/ul Normal 0.0-0.1 [facility] Comment on above: Performed By: #### C BC #### [facility] [address] [place] [address] Dr. Mary Herzog Basophils/100 WBC (Bld) 0.6 % Normal 0.2-2.0 [facility] Comment on above: Performed By: #### C BC #### [facility] [address] [address] [address] Mary Herzog EO # 0.3 103/ul Normal 0.0-0.7 [facility] Comment on above: Performed By: #### C BC #### [facility] [address] [address] [address] Mary Herzog Eosinophils/100 WBC (Bld) 1.9 % Normal 0.9-7.0 [facility] Comment on above: Performed By: #### C BC #### [facility] [address] [place] [address] Dr. Mary Herzog Erythrocyte distribution width (RBC) [Ratio] 13.1 % Normal 11.0-15.0 [facility] Comment on above: Performed By: #### C BC #### [facility] [address] [place] [address] Dr. Mary Herzog Hematocrit (Bld) [Volume fraction] 46.7 % Normal 36.0-48.0 [facility] Comment on above: Performed By: #### C BC #### [facility] [address] [place] [address] Dr. Mary Herzog Hemoglobin (Bld) [Mass/Vol] 15.1 g/dL Normal 12.0-16.0 [facility] Comment on above: Performed By: #### C BC #### [facility] [address] [place] [address] Dr. Mary Herzog IG # 0.05 10e3/ul Critically high 0.00-0.03 [facility] Comment on above: Performed By: #### C BC #### [facility] [address] [place] [address] Dr. Mary Herzog IG % 0.3 % Normal 0.0-0.5 [facility] Comment on above: Performed By: #### C BC #### [facility] [address] [place] [address] Dr. Mary Herzog LYMPH # 10.4 103/ul Critically high 1.2-3.8 [facility] Comment on above: Performed By: #### C BC #### [facility] [address] [place] [address] Dr. Mary Herzog Lymphocytes/100 WBC (Bld) 56.5 % Normal 20.5-60.0 [facility] Comment on above: Performed By: #### C BC #### [facility] [address] [place] [address] Dr. Mary Herzog MANUAL DIFF REQ NO Normal [facility] Comment on above: Performed By: #### C BC #### [facility] [address] [address] [address] Mary Herzog MCH (RBC) [Entitic mass] 29.5 pg Normal 26.7-34.0 [facility] Comment on above: Performed By: #### C BC #### [facility] [address] [address] [address] Mary Herzog MCHC (RBC) [Mass/Vol] 32.3 g/dL Normal 29.9-35.2 [facility] Comment on above: Performed By: #### C BC #### [facility] [address] [place] [address] Dr. Mary Herzog MCV (RBC) [Entitic vol] 91.2 fL Normal 81.0-99.0 [facility] Comment on above: Performed By: #### C BC #### [facility] [address] [place] [address] Dr. Mary Herzog MONO # 0.8 103/ul Normal 0.3-0.8 [facility] Comment on above: Performed By: #### C BC #### [facility] [address] [place] [address] Dr. Mary Herzog Monocytes/100 WBC (Bld) 4.4 % Normal 1.7-12.0 [facility] Comment on above: Performed By: #### C BC #### [facility] [address] [place] [address] Dr. Mary Herzog NEUT # 6.7 103/ul Critically high 1.4-6.5 [facility] Comment on above: Performed By: #### C BC #### [facility] [address] [place] [address] Dr. Mary Herzog Neutrophils/100 WBC (Bld) 36.3 % Critically low 43.0-75.0 [facility] Comment on above: Performed By: #### C BC #### [facility] [address] [place] [address] Dr. Mary Herzog Platelet mean volume (Bld) [Entitic vol] 10.9 fL Normal 9.5-13.5 [facility] Comment on above: Performed By: #### C BC #### [facility] [address] [place] [address] Dr. Mary Herzog PLT 279 103/ul Normal 150-450 [facility] Comment on above: Performed By: #### C BC #### [facility] [address] [place] [address] Dr. Mary Herzog RBC 5.12 106/ul Normal 4.20-5.40 [facility] Comment on above: Performed By: #### C BC #### [facility] [address] [place] [address] Dr. Mary Herzog WBC 18.3 103/ul Critically high 4.0-11.0 [facility] Comment on above: Performed By: #### C BC #### [facility] [address] [place] [address] Dr. Mary Herzog FERRITINon 05-11-2022 Ferritin [Mass/Vol] 97.0 ng/mL Normal 8.0-252.0 [facility] Comment on above: Performed By: #### F ERR #### [facility] [address] [place] [address] Dr. Mary Herzog PROF CHEM 8 (BAS METB)on Anion gap [Moles/Vol] 11.7 mmol/L Normal [facility] Comment on above: Performed By: #### V [id number] #### [facility] [address] [place] [address] Dr. Mary Herzog Calcium [Mass/Vol] 10.1 mg/dL Normal 8.5-10.1 [facility] Comment on above: Performed By: #### V [id number] #### [facility] [address] [place] [address] Dr. Mary Herzog Chloride [Moles/Vol] 101 mmol/L Normal 98-107 [facility] Comment on above: Performed By: #### V [id number] #### [facility] [address] [place] [address] Dr. Mary Herzog CO2 [Moles/Vol] 30.7 mmol/L Normal 21.0-32.0 [facility] Comment on above: Performed By: #### V [id number] #### [facility] [address] [address] [address] Mary Herzog Creatinine [Mass/Vol] 0.97 mg/dL Normal 0.55-1.02 [facility] Comment on above: Performed By: #### V ITB12 #### [facility] [address] [address] [address] Mary Herzog EGFR-AF POLISH >60 Normal >=60 [facility] Comment on above: Performed By: #### V [id number] #### [facility] [address] [address] [address] Mary Herzog EGFR-NON AF POLISH 56 mL/min/1.73m2 Critically low >=60 [facility] Comment on above: Performed By: #### V [id number] #### [facility] [address] [address] [address] Mary Herzog Glucose [Mass/Vol] 138 mg/dL Critically high 74-106 [facility] Comment on above: Performed By: #### V [id number] #### [facility] [address] [place] [address] Dr. Mary Herzog Potassium [Moles/Vol] 4.4 mmol/L Normal 3.5-5.1 [facility] Comment on above: Performed By: #### V [id number] #### [facility] [address] [address] [address] Mary Herzog Sodium [Moles/Vol] 139 mmol/L Normal 136-145 [facility] Comment on above: Performed By: #### V [id number] #### [facility] [address] [address] [address] Mary Herzog Urea nitrogen [Mass/Vol] 21.0 mg/dL Critically high 7.0-18 .0 [facility] Comment on above: Performed By: #### V [id number] #### [facility] [address] [address] [address] Mary Herzog Urea nitrogen/Creatinine [Mass ratio] 21.6 mg/mg Normal [facility] Comment on above: Performed By: #### V [id number] #### [facility] [address] [address] [address] Mary Herzog TSHon 05-11-2022 TSH 1.796 uIU/mL Normal 0.358-3.740 [facility] Comment on above: Performed By: #### V [id number] #### [facility] [address] [place] [place] [address] [address] Mary Herzog Basophils Auto (Bld) [#/Vol] Ordered By: Sherwin Yepez on 10-17-2021 Basophils (Bld) [#/Vol] 0.1 10*3/uL 0.0-0.2 [facility] Basophils/100 WBC Auto (Bld) Ordered By: Sherwin Yepez on 10-17-2021 Basophils/100 WBC (Bld) 0.4 % . [facility] Blood hemoglobin measurement (mass/volume)Ordered By: Sherwin eYpez on 10-17-2021 Hemoglobin (Bld) [Mass/Vol] 14.4 g/dL 11.8-15.4 [facility] Blood leukocytes automated c ount (number/volume)Ordered By: Sherwin Yepez on 10-17-2021 WBC (Bld) [#/Vol] 19.6 10*3/uL 4.5-11.0 [facility] Creatinine and Glomerular fi ltration rate.predicted panel (S/P/Bld)Ordered By: Sherwin Yepez on 10-17-2021 Creatinine [Mass/Vol] 0.97 mg/dL 0.44-1.03 [facility] Eosinophils Auto (Bld) [#/Vo l]Ordered By: Sherwin Yepez on 10-17-2021 Eosinophils (Bld) [#/Vol] 0.0 10*3/uL 0.0-0.45 [facility] Eosinophils/100 WBC Auto (Bl d)Ordered By: Sherwin Yepez on 10-17-2021 Eosinophils/100 WBC (Bld) 0.0 % . [facility] Erythrocyte distribution wid th Auto (RBC) [Ratio]Ordered By: Sherwin Yepez on 10-17-2021 Erythrocyte distribution width (RBC) [Ratio] 13.8 % 11.9-15.3 [facility] Estimated glomerular filtrat ion rate (GFR) non- AmericanOrdered By: Sherwin Yepez on 10-17-2021 GFR/1.73 sq M.predicted among non-blacks MDRD (S/P/Bld) [Vol rate/Area] 56 mL/Min [facility] Hematocrit Auto (Bld) [Volum e fraction]Ordered By: Sherwin Yepez on 10-17-2021 Hematocrit (Bld) [Volume fraction] 43.4 % 34.0-46.4 [facility] Laboratory - Hematology and Cell countsOrdered By: Sherwin Yepez on 10-17-2021 Nucleated RBC/100 WBC (Bld) [Ratio] 0.0 % 0-0.5 [facility] Lymphocytes Auto (Bld) [#/Vo l]Ordered By: Sherwin Yepez on 10-17-2021 Lymphocytes (Bld) [#/Vol] 5.7 10*3/uL 1.00-4.8 [facility] Lymphocytes/100 WBC Auto (Bl d)Ordered By: Sherwin Yepez on 10-17-2021 Lymphocytes/100 WBC (Bld) 28.9 % . [facility] MCH Auto (RBC) [Entitic mass ]Ordered By: Sherwin Yepez on 10-17-2021 MCH (RBC) [Entitic mass] 30.0 pg 24.7-34.3 [facility] MCHC Auto (RBC) [Mass/Vol]Or dered By: Sherwin Yepez on 10-17-2021 MCHC (RBC) [Mass/Vol] 33.0 g/dL 32.0-35.0 [facility] MCV Auto (RBC) [Entitic vol] Ordered By: Sherwin Yepez on 10-17-2021 MCV (RBC) [Entitic vol] 90.7 fL 80-100 [facility] Monocytes Auto (Bld) [#/Vol] Ordered By: Sherwin Yepez on 10-17-2021 Monocytes (Bld) [#/Vol] 1.2 10*3/uL 0.0-0.8 [facility] Monocytes/100 WBC Auto (Bld) Ordered By: Sherwin Yepez on 10-17-2021 Monocytes/100 WBC (Bld) 5.9 % . [facility] Neutrophils Auto (Bld) [#/Vo l]Ordered By: Sherwin Yepez on 10-17-2021 Neutrophils (Bld) [#/Vol] 12.7 10*3/uL 1.8-7.7 [facility] Neutrophils/100 WBC Auto (Bl d)Ordered By: Sherwin Yepez on 10-17-2021 Neutrophils/100 WBC (Bld) 64.8 % . [facility] No Panel InformationOrdered By: Sherwin Yepez on 10-17-2021 Estimated GFR () > 60 mL/Min [facility] Comment on above: GFR estimated refere nce range: According to KDOQI guidelines, <60 ml/min/1.73m2 is sufficient to diagnose a patient with chronic kidney disease. Pharmacy Creatinine Clearance (Chem 42.09 [facility] Platelet Estimate Normal Normal [facility] Platelet Morphology Comment Normal Normal [facility] Platelet mean volume Auto (B ld) [Entitic vol]Ordered By: Sherwin Yepez on 10-17-2021 Platelet mean volume (Bld) [Entitic vol] 9.8 fL 6.3-10.7 [facility] Platelets Auto (Bld) [#/Vol] Ordered By: Sherwin Yepez on 10-17-2021 Platelets (Bld) [#/Vol] 238 10*3/uL 150-450 [facility] RBC Auto (Bld) [#/Vol]Ordere d By: Sherwin Yepez on 10-17-2021 RBC (Bld) [#/Vol] 4.79 10*6/uL 3.60-5.00 [facility] RBC morphologyOrdered By: Wolf Yepez on 10-17-2021 RBC morphology finding Nom (Bld) N/A [facility] Serum or plasma chloride soham surement (moles/volume)Ordered By: Sherwin Yepez on 10-17-2021 Chloride [Moles/Vol] 100 mmol/L 95-114 [facility] Serum or plasma potassium me asurement (moles/volume)Ordered By: Sherwin Yepez on 10-17-2021 Potassium [Moles/Vol] 4.9 mmol/L 3.5-5.1 [facility] Serum or plasma sodium measu rement (moles/volume)Ordered By: Sherwin Yepez on 10-17-2021 Sodium [Moles/Vol] 133 mmol/L 136-146 [facility] Serum or plasma total carbon dioxide measurement (moles/volume)Ordered By: Sherwin Yepez on 10-17-2021 CO2 [Moles/Vol] 25.3 mmol/L 22.0-30.0 [facility] Serum or plasma urea nitroge n measurement (mass/volume)Ordered By: Sherwin Yepez on 10-17-2021 Urea nitrogen [Mass/Vol] 16 mg/dL 9-23 [facility] COVID-19 Positive/NegativeOr dered By: Sherwin Yepez on 10-12-2021 SARS-CoV-2 (COVID-19) N gene RUSSEL+probe Ql (Resp) Negative Negative [facility] Comment on above: Testing for SARS-CoV -2 by RT-PCR This test was developed and its performance characteristics determined by [employer] and validated at the [facility]. This test has not been FDA cleared [...] on 10-06-2021 Basophils (Bld) [#/Vol] N/A [facility] Basophils/100 WBC Auto (Bld) Ordered By: Sherwin Yepez on 10-06-2021 Basophils/100 WBC (Bld) N/A [facility] Basophils/100 WBC (Bld) 1 % 0-2 [facility] Blood hemoglobin measurement (mass/volume)Ordered By: Sherwin Yepez on 10-06-2021 Hemoglobin (Bld) [Mass/Vol] 14.7 g/dL 11.8-15.4 [facility] Blood leukocytes automated c ount (number/volume)Ordered By: Sherwin Yepez on 10-06-2021 WBC (Bld) [#/Vol] 17.0 10*3/uL 4.5-11.0 [facility] Creatinine and Glomerular fi ltration rate.predicted panel (S/P/Bld)Ordered By: Sherwin Yepez on 10-06-2021 Creatinine [Mass/Vol] 0.89 mg/dL 0.44-1.03 [facility] Eosinophils Auto (Bld) [#/Vo l]Ordered By: Sherwin Yepez on 10-06-2021 Eosinophils (Bld) [#/Vol] N/A [facility] Eosinophils/100 WBC Auto (Bl d)Ordered By: Sherwin Yepez on 10-06-2021 Eosinophils/100 WBC (Bld) N/A [facility] Erythrocyte distribution wid th Auto (RBC) [Ratio]Ordered By: Sherwin Yepez on 10-06-2021 Erythrocyte distribution width (RBC) [Ratio] 13.9 % 11.9-15.3 [facility] Estimated glomerular filtrat ion rate (GFR) non- AmericanOrdered By: Sherwin Yepez on 10-06-2021 GFR/1.73 sq M.predicted among non-blacks MDRD (S/P/Bld) [Vol rate/Area] > 60 mL/Min [facility] Hematocrit Auto (Bld) [Volum e fraction]Ordered By: Sherwin Yepez on 10-06-2021 Hematocrit (Bld) [Volume fraction] 45.0 % 34.0-46.4 [facility] Laboratory - Hematology and Cell countsOrdered By: Sherwin Yepez on 10-06-2021 Nucleated RBC/100 WBC (Bld) [Ratio] 0.1 % 0-0.5 [facility] Lymphocytes Auto (Bld) [#/Vo l]Ordered By: Sherwin Yepez on 10-06-2021 Lymphocytes (Bld) [#/Vol] N/A [facility] Lymphocytes/100 WBC Auto (Bl d)Ordered By: Sherwin Yepez on 10-06-2021 Lymphocytes/100 WBC (Bld) N/A [facility] Lymphocytes/100 WBC (Bld) 43 % 18-42 [facility] Lymphocytes/100 WBC Manual c nt (Bld)Ordered By: Sherwin Yepez on 10-06-2021 Lymphocytes/100 WBC (Bld) 21 % 0-12 [facility] MCH Auto (RBC) [Entitic mass ]Ordered By: Sherwin Yepez on 10-06-2021 MCH (RBC) [Entitic mass] 29.8 pg 24.7-34.3 [facility] MCHC Auto (RBC) [Mass/Vol]Or dered By: Sherwin Yepez on 10-06-2021 MCHC (RBC) [Mass/Vol] 32.7 g/dL 32.0-35.0 [facility]ir [facility] MCV Auto (RBC) [Entitic vol] Ordered By: Sherwin Yepez on 10-06-2021 MCV (RBC) [Entitic vol] 90.9 fL 80-100 [facility] Monocyte %Ordered By: Sherwin mcclendon on 10-06-2021 Monocytes/100 WBC (Bld) 2 % 1-3 [facility] Monocytes Auto (Bld) [#/Vol] Ordered By: Sheriwn Yepez on 10-06-2021 Monocytes (Bld) [#/Vol] N/A [facility] Monocytes/100 WBC Auto (Bld) Ordered By: Sherwin Yepez on 10-06-2021 Monocytes/100 WBC (Bld) N/A [facility] Monocytes/100 WBC Manual cnt (Bld)Ordered By: Sherwin Yepez on 10-06-2021 Monocytes/100 WBC (Bld) 6 % 2-11 [facility] Neutrophils Auto (Bld) [#/Vo l]Ordered By: Sherwin Yepez on 10-06-2021 Neutrophils (Bld) [#/Vol] N/A [facility] Neutrophils/100 WBC Auto (Bl d)Ordered By: Sherwin Yepez on 10-06-2021 Neutrophils/100 WBC (Bld) N/A [facility] No Panel InformationOrdered By: Sherwin Yepez on 10-06-2021 Estimated GFR () > 60 mL/Min [facility] Comment on above: GFR estimated refere nce range: According to KDOQI guidelines, <60 ml/min/1.73m2 is sufficient to diagnose a patient with chronic kidney disease. Pharmacy Creatinine Clearance (Chem N/A [facility] Platelet Estimate Normal Normal [facility] Platelet Morphology Comment Normal Normal [facility] Platelet mean volume Auto (B ld) [Entitic vol]Ordered By: Sherwin Yepez on 10-06-2021 Platelet mean volume (Bld) [Entitic vol] 9.2 fL 6.3-10.7 [facility] Platelets Auto (Bld) [#/Vol] Ordered By: Sherwin Yepez on 10-06-2021 Platelets (Bld) [#/Vol] 223 10*3/uL 150-450 [facility] RBC Auto (Bld) [#/Vol]Ordere d By: Sherwin Yepez on 10-06-2021 RBC (Bld) [#/Vol] 4.95 10*6/uL 3.60-5.00 [facility] RBC morphologyOrdered By: Wolf Yepez on 10-06-2021 RBC morphology finding Nom (Bld) Normal [facility] Segmented neutrophils/100 WB C Manual cnt (Bld)Ordered By: Sherwin Yepez on 10-06-2021 Segmented neutrophils/100 WBC (Bld) 27 % 50-70 [facility] Serum or plasma calcium tamie urement (mass/volume)Ordered By: Sherwin Yepez on 10-06-2021 Calcium [Mass/Vol] 9.5 mg/dL 8.2-10.2 [facility] Serum or plasma chloride soham surement (moles/volume)Ordered By: Sherwin Yepez on 10-06-2021 Chloride [Moles/Vol] 99 mmol/L 95-114 [facility] Serum or plasma glucose tamie urement (mass/volume)Ordered By: Sherwin Yepez on 10-06-2021 Glucose [Mass/Vol] 98 mg/dL 70-100 [facility] Comment on above: ADA recommended refe rence range Random Glucose Reference Range is dependent on time and content of last meal. Glucose of more than 200 mg/dL in a nonstressed, ambulatory subject supports the diagnosis of Diabetes Mellitus. Serum or plasma potassium me asurement (moles/volume)Ordered By: Sherwin Yepez on 10-06-2021 Potassium [Moles/Vol] 4.7 mmol/L 3.5-5.1 [facility] Serum or plasma sodium measu rement (moles/volume)Ordered By: Sherwin Yepez on 10-06-2021 Sodium [Moles/Vol] 135 mmol/L 136-146 [facility] Serum or plasma total carbon dioxide measurement (moles/volume)Ordered By: Sherwin Yepez on 10-06-2021 CO2 [Moles/Vol] 27.3 mmol/L 22.0-30.0 [facility] Serum or plasma urea nitroge n measurement (mass/volume)Ordered By: Sherwin Yepez on 10-06-2021 Urea nitrogen [Mass/Vol] 19 mg/dL 9- [facility] CNPNon 12-01-2020 CNPN Telephone (HEMASA) ---- MARITZA ESPINO ([id number]) 1945 F Date Time Provider Department 12/01/20 ANDREI MARIO During your visit today, we recorded the following information about you: Nicole Neal [facility] 12/01/2020 9:08 AM Signed Records faxed to [facility]. Patient to follow with Dr. Beckett. [...] MULTIVITAMIN ORAL Take by mouth. - folic acid/multivit-min/l utein (CENTRUM SILVER ORAL) Take by mouth. - multivit,calc,mins/ iron/folic (ONE-A-DAY WOMENS FORMULA ORAL) Take by mouth. - lisinopril 2.5 mg tablet Problem List As Of Date 12/01/2020 Noted Resolved Lymphocytosis [D72.820] 12/11/2016 CLL (chronic lymphocytic leukemia) (HCC) [C91.1*12/11/2017 Encounter Status:Closed by NICOLE VÁZQUEZ on 12/01/20 [facility] [place] 11-24-2020 PAULAN Telephone (KENAN) ---- MARITZA ESPINO ([id number]) 1945 F Date Time Provider Department 11/24/20 [...] [C91.10] Order(s):CBC + DIFF [SQCBCDIF] Order #: [id number] STANDING COMP METABOLIC PANEL [SQCMP] Order #: [id number] STANDING LD LACTATE DEHYDRO [SQLD6] Order #: [id number] STANDING Prescriptions as of 11/30/2020 - amitriptyline [...] MULTIVITAMIN ORAL Take by mouth. - folic acid/multivit-min/l utein (CENTRUM SILVER ORAL) Take by mouth. - multivit,calc,mins/ iron/folic (ONE-A-DAY WOMENS FORMULA ORAL) Take by mouth. - lisinopril 2.5 mg tablet Problem List As Of Date 11/24/2020 Noted Resolved Lymphocytosis [D72.820] 12/11/2016 CLL (chronic lymphocytic leukemia) (HCC) [C91.1*12/11/2017 Encounter Status:Closed by MAI CARLSON on 11/30/20 [facility] CNOVSPon 06-01-2020 OVS Visit (SP) Office ([facility]) ---- MARITZA ESPINO ([id number]) 1945 F Date Time Provider Department 06/01/20 10:00 AM ANDREI MARIO During your visit today, we recorded the following information about you: Temperature Pulse Respiration Blood pressure 97.2 degrees 73/minute 18/minute 131/73 Weight Height 56.3 kg 1.579 m Andrei Mario MD 06/01/2020 10:13 AM Signed NAME: Maritza Espino CLINIC NO.: [id number] DATE OF SERVICE: June 01, 2020 Some [...] Pattern LSI BETHEL (11q22.3): Normal Pattern LSI [id number] (13q14): Normal Pattern CEP 12: Normal Pattern LSI LAMP1 (13q34): Normal Pattern IGH/CCND1 t(11;14)(q13;q32): Negative INTERPRETATION: There is a normal pattern of hybridization with each of the probes tested. 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 1. 11/21/2016 Peripheral blood Flow Cy: Specimen originated from [facility] Specimen #: [id number] Submitting Physician: SACHIN PEREZ II, DO SPECIMEN [...] Marker ?Normal Cell ? ? Atypical Lymphocytes ___ CD2 ?T/NK cells ? ? ? Negative [...] REVIEW OF (more content not included)... Normal [facility] Comp Metabolic Panelon 06-01 Albumin [Mass/Vol] 4.3 g/dL Normal 3.9-4.9 [facility] ALP [Catalytic activity/Vol] 66 U/L Normal 34-123 [facility] ALT [Catalytic activity/Vol] 13 U/L Normal 7-38 [facility] Anion gap [Moles/Vol] 8 mmol/L Low 9-18 [facility] AST [Catalytic activity/Vol] 20 U/L Normal 13-35 [facility] Bilirubin [Mass/Vol] 0.5 mg/dL Normal 0.2-1.3 [facility] Calcium [Mass/Vol] 9.4 mg/dL Normal 8.5-10.2 [facility] Chloride [Moles/Vol] 101 mmol/L Normal 97-105 [facility] CO2 [Moles/Vol] 26 mmol/L Normal 22-30 [facility] Creatinine [Mass/Vol] 1.12 mg/dL High 0.58-0.96 [facility] eGFR- Amer. 58 Normal [facility] eGFR-All Other Races 48 . Normal [facility] Comment on above: Result Comment: eGFR [...] GFR. Glucose [Mass/Vol] 97 mg/dL Normal 74-99 [facility] Comment on above: Result Comment: The [employer] Diabetes Association (ADA) provides guidance for cutoff [...] Standards of Medical Care in Diabetes 2016, [employer] Diabetes Association. Diabetes Care. 2016.39(Suppl 1). Potassium [Moles/Vol] 4.5 mmol/L Normal 3.7-5.1 [facility] Protein [Mass/Vol] 6.4 g/dL Normal 6.3-8.0 [facility] Sodium [Moles/Vol] 135 mmol/L Low 136-144 [facility] Urea nitrogen [Mass/Vol] 32 mg/dL High 7-21 [facility] LDon 06-01-2020 LD 173 U/L Normal 135-214 [facility] Remote CBCDIF (for [facility] use o nly)on 06-01-2020 Abs Baso 0.10 k/uL Normal <0.11 [facility] Abs [place]hi 0.97 k/uL High <0.87 [facility] Abs Neut 5.24 k/uL Normal 1.45-7.50 [facility] Absolute nRBC <0.01 Normal <0.01 [facility] Basophils/100 WBC (Bld) 0.5 % Normal [facility] DTYPE Auto Diff Normal [facility] Eosinophils (Bld) [#/Vol] 0.47 10*3/uL High <0.46 [facility] Eosinophils/100 WBC (Bld) 2.3 % Normal [facility] Erythrocyte distribution width (RBC) [Ratio] 13.3 % Normal 11.5-15.0 [facility] Hematocrit (Bld) [Volume fraction] 44.1 % Normal 36.0-46.0 [facility] Hemoglobin (Bld) [Mass/Vol] 14.3 g/dL Normal 11.5-15.5 [facility] Lymphocytes (Bld) [#/Vol] 13.74 10*3/uL High 1.00-4.00 [facility] Lymphocytes/100 WBC (Bld) 67.0 % Normal [facility] MCH 29.6 pG Normal 26.0-34.0 [facility] MCHC (RBC) [Mass/Vol] 32.4 g/dL Normal 30.5-36.0 [facility] MCV (RBC) [Entitic vol] 91.3 fL Normal 80.0-100.0 C [facility] Monocytes/100 WBC (Bld) 4.7 % Normal C [facility] Neutrophils/100 WBC (Bld) 25.5 % Normal [facility] NRBCs 0.0 /100 WBC Normal 0 [facility] Platelet mean volume (Bld) [Entitic vol] 10.5 fL Normal 9.0-12.7 [facility] Platelets (Bld) [#/Vol] 309 10*3/uL Normal 150-400 [facility] RBC (Bld) [#/Vol] 4.83 10*6/uL Normal 3.90-5.20 [facility] WBC (Bld) [#/Vol] 20.52 10*3/uL High 3.70-11.00 [facility] CNPNon 05-27-2020 CNPN Telephone (HEMASA) ---- MARITZA ESPINO ([id number]) 1945 F Date Time Provider Department 05/27/20 ANDREI MARIO During your visit today, we recorded the following information about you: Allergies As of Date: 05/27/2020 Noted Allergy Reaction AMOXICILLIN 11/20/2016 7 - Swelling Comments: Facial swelling RAGWEED POLLEN 11/19/2016 16 - Unknown Date Reviewed: 05/27/2020 Reviewed by: Jayson Sullivan - Fully Assessed Reason for Visit: Lab Orders [1138] Primary Visit Diagnosis:CLL (chronic lymphocytic leukemia) ([facility]) [C91.10] Other Visit Diagnosis:Lymphocyt osis [D72.820] Order(s):CBC + DIFF (FOR REMOTE [facility] USE) [SQRCBCDF] Order #: [id number] FUTURE COMP METABOLIC PANEL [SQCMP] Order #: [id number] FUTURE LD LACTATE DEHYDRO [SQLD6] Order #: [id number] FUTURE Prescriptions as of 05/27/2020 Sig: METOPROLOL [...] by JAYSON SULLIVAN CNP on 05/27/20 Normal [facility] Vital Signs Date Time Vital Sign Value Performing Clinician Facility 06-17-2023 10:28-0400 Body temperature 97.5 [degF] MD Becker [facility] 06-17-2023 10:28-0400 Body weight 49.89 kg MD Becker [facility] 06-17-2023 10:28-0400 Diastolic blood pressure 92 mm[Hg] MD Becker [facility] 06-17-2023 10:28-0400 Heart rate 96 /min MD Becker [facility] 06-17-2023 10:28-0400 Respiratory rate 16 /min MD Becker [facility] 06-17-2023 10:28-0400 SaO2% (BldA) [Mass fraction] 96 % MD Becker [facility] 06-17-2023 10:28-0400 Systolic blood pressure 169 mm[Hg] MD Becker [facility] 06-13-2023 09:42-0400 Body height 157.48 cm MD Becker [facility] 06-13-2023 09:42-0400 Body mass index (BMI) [Ratio] 20.3 kg/m2 MD Becker [facility] 06-13-2023 09:42-0400 Body weight 50.46 kg MD Becker [facility] 06-13-2023 09:42-0400 Diastolic blood pressure 87 mm[Hg] MD Becker [facility] 06-13-2023 09:42-0400 Heart rate 93 /min MD Becker [facility] 06-13-2023 09:42-0400 Systolic blood pressure 164 mm[Hg] MD Becker [facility] 05-27-2023 12:06-0500 Diastolic blood pressure 86 mm[Hg] Mohamad Mouchli [facility] 05-27-2023 12:06-0500 Mean blood pressure 108 mm[Hg] Mohamad Mouchli [facility] 05-27-2023 12:06-0500 Systolic blood pressure 151 mm[Hg] Mohamad Mouchli [facility] 05-27-2023 12:01-0500 Blood Pressure Location Mohamad Mouchli [facility] 05-27-2023 12:01-0500 Body temperature 97.34 [degF] Mohamad Mouchli [facility] 05-27-2023 12:01-0500 Diastolic blood pressure 90 mm[Hg] Mohamad Mouchli [facility] 05-27-2023 12:01-0500 Heart rate 91 /min Mohamad Mouchli [facility] 05-27-2023 12:01-0500 Respiratory rate 14 /min Mohamad Mouchli [facility] 05-27-2023 12:01-0500 Systolic blood pressure 158 mm[Hg] Mohamad Mouchli [facility] 04-23-2023 08:45-0500 Body height 157.48 cm Dang Anguiano Other [facility] 04-23-2023 08:45-0500 Body mass index (BMI) [Ratio] 20.37 kg/m2 Dang Anguiano Other [employer] Other 04-23-2023 08:45-0500 Body weight 50.53 kg Dang Anguiano Other [facility] 04-23-2023 08:45-0500 Diastolic blood pressure 78 mm[Hg] Dang Anguiano Other [facility] 04-23-2023 08:45-0500 Systolic blood pressure 130 mm[Hg] Dang Anguiano Other [facility] 04-16-2023 13:30-0500 Body height 157.48 cm Dang Anguiano Other [facility] 04-16-2023 13:30-0500 Body mass index (BMI) [Ratio] 20.67 kg/m2 Dang Anguiano Other [facility] [employer] Other 04-16-2023 13:30-0500 Body weight 51.26 kg Dang Anguiano Other [facility] [employer] Other 04-16-2023 13:30-0500 Body weight 51.25 kg MD Eugenio Beckett [facility] 04-16-2023 13:30-0500 Diastolic blood pressure 78 mm[Hg] Dang Anguiano Other [facility] 04-16-2023 13:30-0500 SaO2% (BldA) [Mass fraction] 97 % Dang Anguiano Other [facility] [employer] Other 04-16-2023 13:30-0500 Systolic blood pressure 120 mm[Hg] Dagn Anguiano Other [facility] 02-11-2023 13:15-0500 Body height 157.48 cm Dang Anguiano Other [facility] [employer] Other 02-11-2023 13:15-0500 Body mass index (BMI) [Ratio] 20.81 kg/m2 Dang Anguiano Other [facility] [employer] Other 02-11-2023 13:15-0500 Body weight 51.62 kg Dang Anguiano Other [employer] Other 02-11-2023 13:15-0500 Diastolic blood pressure 87 mm[Hg] Dang Anguiano Other [employer] Other 02-11-2023 13:15-0500 Systolic blood pressure 149 mm[Hg] Dang Anguiano Other [employer] Other 01-01-2023 08:30-0400 Body height 157.48 cm Dang Anguiano Other [employer] Other 01-01-2023 08:30-0400 Body mass index (BMI) [Ratio] 21.32 kg/m2 Dang Anguiano Other [employer] Other 01-01-2023 08:30-0400 Body weight 52.89 kg Dang Anguiano Other [employer] Other 01-01-2023 08:30-0400 Diastolic blood pressure 84 mm[Hg] Dang Anguiano Other [employer] Other 01-01-2023 08:30-0400 Systolic blood pressure 154 mm[Hg] Dang Anguiano Other [employer] Other 07-02-2022 09:30-0400 Body height 157.48 cm Dang Anguiano Other [employer] Other 07-02-2022 09:30-0400 Body mass index (BMI) [Ratio] 21.58 kg/m2 Dang Anguiano Other [employer] Other 07-02-2022 09:30-0400 Body weight 53.52 kg Dang Anguiano Other [employer] Other 07-02-2022 09:30-0400 Diastolic blood pressure 72 mm[Hg] Dang Anguiano Other [employer] Other 07-02-2022 09:30-0400 SaO2% (BldA) [Mass fraction] 98 % Dang Anguiano Other [employer] Other 07-02-2022 09:30-0400 Systolic blood pressure 138 mm[Hg] Dang Anguiano Other [employer] Other 06-18-2022 10:53-0400 Body temperature 97.8 [degF] MD Becker [facility] 06-18-2022 10:53-0400 Body weight 53.52 kg MD Becker [facility] 06-18-2022 10:53-0400 Diastolic blood pressure 77 mm[Hg] MD Becker [facility] 06-18-2022 10:53-0400 Heart rate 91 /min MD Becker [facility] 06-18-2022 10:53-0400 Respiratory rate 16 /min MD Becker [facility] 06-18-2022 10:53-0400 SaO2% (BldA) [Mass fraction] 94 % MD Becker [facility] 06-18-2022 10:53-0400 Systolic blood pressure 148 mm[Hg] MD Becker [facility] 05-11-2022 09:45-0500 Body height 157.48 cm Dang Anguiano Other [employer] Other 05-11-2022 09:45-0500 Body mass index (BMI) [Ratio] 21.95 kg/m2 Dang Anguiano Other [employer] Other 05-11-2022 09:45-0500 Body weight 54.43 kg Dang Anguiano Other [employer] Other 05-11-2022 09:45-0500 Diastolic blood pressure 82 mm[Hg] Dang Anguiano Other [employer] Other 05-11-2022 09:45-0500 SaO2% (BldA) [Mass fraction] 97 % Dang Anguiano Other [employer] Other 05-11-2022 09:45-0500 Systolic blood pressure 130 mm[Hg] Dang Anguiano Other [employer] Other 04-05-2022 15:30-0500 Body height 157.48 cm Dang Anguiano Other [employer] Other 04-05-2022 15:30-0500 Body mass index (BMI) [Ratio] 21.58 kg/m2 Dang Anguiano Other [employer] Other 04-05-2022 15:30-0500 Body weight 53.52 kg Dang Anguiano Other [employer] Other 04-05-2022 15:30-0500 Diastolic blood pressure 88 mm[Hg] Dang Anguiano Other [employer] Other 04-05-2022 15:30-0500 SaO2% (BldA) [Mass fraction] 98 % Dang Anguiano Other [employer] Other 04-05-2022 15:30-0500 Systolic blood pressure 140 mm[Hg] Dang Anguiano Other [employer] Other 10-17-2021 15:57-0400 Body temperature 97.6 [degF] MD Dang Anguiano Work Phone: [facility] 10-17-2021 15:57-0400 Diastolic blood pressure 67 mm[Hg] MD Dang Anguiano Work Phone: [facility] 10-17-2021 15:57-0400 Heart rate 76 /min MD Dang Anguiano Work Phone: [facility] 10-17-2021 15:57-0400 Respiratory rate 14 /min MD Dang Anguinao Work Phone: [facility] 10-17-2021 15:57-0400 SaO2% (BldA) [Mass fraction] 91 % MD Dang Anguiano Work Phone: [facility] 10-17-2021 15:57-0400 Systolic blood pressure 112 mm[Hg] MD Dang Anguiano Work Phone: [facility] 10-17-2021 09:45-0400 Body height 160.02 cm MD Dang Anguiano Work Phone: [facility] 10-17-2021 08:42-0400 Inhaled oxygen flow rate 2 L/min MD Dang Anguiano Work Phone: [facility] 10-17-2021 05:08-0400 Body weight 55.3 kg MD Dang Anguiano Work Phone: [facility] 10-16-2021 11:25-0400 Body mass index (BMI) [Ratio] 20 kg/m2 MD Dang Anguiano Work Phone: [facility] 06-16-2021 14:43-0400 Body height 159 cm MD Eugenio Beckett [facility] Encounters Encounter Date Encounter Type Care Provider Facility Start: 06-17-2023 Registered Recurring MD Eugenio gregorio [facility] Work Phone: Start: 06-17-2023 End: 06-17-2023 ambulatory MD Eugenio Beckett [facility] Work Phone: Start: 06-17-2023 End: 06-17-2023 Patient encounter procedure MD Eugenio Beck[facility] Work Phone: Start: 06-13-2023 End: 06-13-2023 ambulatory MD Eugenio Beckett [facility] Work Phone: Start: 06-13-2023 End: 06-13-2023 Patient encounter procedure MD Eugenio Beckett [facility] Work Phone: Start: 06-12-2023 Registered Recurring MD Eugenio gregorio [facility] Work Phone: Start: 05-27-2023 ambulatory Papito Tripp Faci lity:[facility] Start: 05-27-2023 End: 05-27-2023 Patient encounter procedure Papito Tripp [facility] Start: 04-30-2023 End: 04-30-2023 ambulatory Dang Anguiano Other [employer] Other Start: 04-30-2023 Telephone encounter Dang Anguiano [facility] Start: 04-29-2023 ambulatory Papito Tripp [facility]ilit [facility] Start: 04-23-2023 End: 04-23-2023 ambulatory Dang Anguiano Other [employer] Other Start: 04-23-2023 Office outpatient visit 15 minutes Dang Anguiano [facility] Start: 04-23-2023 End: 04-23-2023 Patient encounter procedure MD Eugenio Beckett [facility] Start: 04-16-2023 End: 04-16-2023 ambulatory Dang Anguiano Other [employer] Other Start: 04-16-2023 Office outpatient visit 15 minutes Dang Anguiano [facility] Start: 04-16-2023 End: 04-16-2023 Patient encounter procedure MD Eugenio Beckett [facility]- Start: 02-11-2023 End: 02-11-2023 ambulatory Dang Anguiano Other [employer] Other Start: 02-11-2023 Office outpatient visit 15 minutes Dang Anguiano [facility] Start: 02-11-2023 Telephone encounter Dang Anguiano [facility] Start: 01-14-2023 End: 01-14-2023 ambulatory Dang Anguiano Other [employer] Other Start: 01-14-2023 Telephone encounter Dang Anguiano [facility] Start: 01-01-2023 End: 01-01-2023 ambulatory Dang Anguiano Other [employer] Other Start: 01-01-2023 Office outpatient visit 25 minutes Dang Anguiano [facility] Start: 08-22-2022 End: 08-22-2022 ambulatory KRISHAN GONSALEZ Facility: Start: 07-06-2022 End: 07-07-[address] CHIP CORONA Facility: Start: 07-02-2022 End: 07-02-2022 ambulatory Dang Anguiano Other [employer] Other Start: 07-02-2022 Office outpatient visit 15 minutes Dang Anguiano [facility] Start: 06-18-2022 ambulatory Sachin sherwood II Facility:[facility] Start: 05-18-2022 End: 05-18-2022 ambulatory Dang Anguiano Other [employer] Other Start: 05-18-2022 Telephone encounter Dang Anguiano [facility] Start: 05-17-2022 End: 05-17-2022 ambulatory Dang Anguiano Other [employer] Other Start: 05-17-2022 Telephone encounter Dang Anguiano [facility] Start: 05-11-2022 Office outpatient visit 15 minutes Dang Anguiano [facility] Start: 05-11-2022 End: 05-12-[address] DANG ANGUIANO [employer] Other Start: 05-01-2022 End: 05-01-2022 ambulatory Dang Anguiano Other [employer] Other Start: 05-01-2022 Telephone encounter Dang Anguiano [facility] Start: 04-05-2022 End: 04-05-2022 ambulatory Dang Anguiano Other [employer] Other Start: 04-05-2022 Office outpatient visit 15 minutes Dang Anguiano [facility] Start: 10-16-2021 End: 10-17-2021 Admission to same day surgery center MD Dang Anguiano Work Phone: [facility] [place] Start: 10-12-2021 End: 10-12-2021 Patient encounter procedure MD Dang Anguiano Work Phone: [facility] Start: 10-06-2021 End: 10-06-2021 Patient encounter procedure MD Dang Anguiano Work Phone: [facility] Start: 08-31-2021 End: 08-31-2021 Departed Referred MD Dang Anguiano Work Phone: [facility] [place] Start: 08-29-2021 End: 08-29-2021 Patient encounter procedure MD Dang Anguiano Work Phone: [facility] [place] Procedures Date Procedure Procedure Detail Performing Clinician Start: 10-16-2021 Laparoscopic fundoplication MD Dang Anguiano Work Phone: Start: 03-25-2021 Hiatal hernia (disorder) Papito Tripp Start: 03-25-2017 Colonoscopy Papito bennett Start: 03-25-2013 Elbow region structu re (body structure) Papito Tripp Start: 08-23-1997 Gallbladder structur e (body structure) Papito Tripp Tonsillar structure (palatine) (body structure) Papito Tripp Plan of Treatment Date Care Activity Detail Author Start: 10-17-2021 Administration of pr ophylactic treatment [facility] Work Phone: Start: 10-17-2021 [facility] Work Phone: Start: 06-16-2021 [facility] Comprehensive metabo lic 2000 panel - Serum or Plasma [facility] EKG 12 channel panel [facility] Patient referral [facility] Work Phone: [facility] Immunizations Immunization Date Immunization Notes Care Provider Fa cility 12-25-2022 influenza virus vaccine, unspecified formulation Papito Tripp [facility] 02-13-2022 COVID-19 Pfizer (Pediatric) Dang Anguiano Other [facility] 02-13-2022 SARS-CoV-2 (COVID-19 ) [id number] [facility]over[facility]jeovany Tripp [facility] 12-13-2021 influenza virus vaccine, split virus (incl. purified surface antigen) Dang Anguiano Other [facility] [employer] Other 12-13-2021 influenza virus vaccine, unspecified formulation [facility]any Tripp [facility] 01-02-2021 influenza virus vaccine, split virus (incl. purified surface antigen) Dang Anguiano Other [facility] [employer] Other 01-02-2021 influenza virus vaccine, unspecified formulation [facility]any Tripp [facility] 12-19-2020 COVID-19 mRNA, Comirnaty (Pfizer) MD Dang Anguiano Work Phone: [facility] Comment on above: Result Comment: 2023: [id number] 05-18-2020 COVID-19 mRNAGeniairnatwinsome (Pfizer) MD Dang Anguiano Work Phone: [facility] Comment on above: Result Comment: 2023: TPV70 04-27-2020 COVID-19 mRNAGeniairnatwinsome (Pfizer) MD Dang Anguiano Work Phone: [facility] Comment on above: Result Comment: 2023: TPV70 11-29-2019 influenza virus vaccine, unspecified formulation Mohamad Mouchli [facility] 12-23-2018 influenza virus vaccine, unspecified formulation Mohamad Mouchli [facility] 01-31-2018 pneumococcal polysaccharide vaccine, [address] [facility] 01-20-2018 influenza virus vaccine, unspecified formulation Mohamad Mouchli [facility] 01-21-2017 influenza virus vaccine, unspecified formulation Mohamad Mouchli [facility] 01-21-2017 pneumococcal conjuga te vaccine, 13 valjovanna Anguiano Other [facility] Payers Date Payer Category Payer Unknown [id number] 1957 Medicare [id number] 1957 Self-pay [id number] 1957 Unknown [id number] 1945 Unknown [id number] 2.16.84 [id number] 1945 Unknown [id number] 2.16.84 [id number] 1945 Unknown [id number] 2.16.84 [id number] 1945 Unknown [id number] 2.16.8 [id number] Unknown [id number] 2.16.84 [id number] Unknown [id number] 2.16.8 [id number] Social History Date Type Detail Facility Start: 10-06-2021 End: 06-18-2022 Tobacco smoking status NHIS Never smoked tobacco (finding) [facility] Start: 1945 Sex Assigned At Female [facility] Sex Assigned At [facility] Goals Date Patient Goal Desired Activity /State Functional Status Date Assessment Result Facility 05-27-2023 Functional Status N/A [facility] 10-17-2021 Functional status Patient at Baseline [facility] Work Phone: Mental Status Date Assessment Result Facility 10-17-2021 Cognitive function Cognitive Sta tus Patient at Baseline [facility] Work Phone: Clinical Notes 06-01-2020 to 04-23-2023 Note Date & Type Note Facility 04-23-2023 Evaluation note Encounter Date Diagnosis Assessment Notes Mar, Acute diarrhea (ICD-10 - R19.7) Trial of levsin, pt requests referral to GI [employer] Other 01-23-2024 Evaluation note* Encounter Date Diagnosis Assessment Notes Treatment Notes Treatment Clinical Notes Mar, Acute diarrhea (ICD-10 - R19.7) advised taking Imodium 1-2x daily and resuming normal rather than a BRAT diet. Will call her on 04/18 and check on her symptoms. Pt agrees she feels well, except when she has to use BR suddenly. She was transferred to [place] in January and she is concerned this is related to a recurrance of that problem. [employer] Other 11-20-2023 Evaluation note* Encounter Date Diagnosis Assessment Notes Treatment Notes Treatment Clinical Notes Jan, Pneumatosis intestinalis (ICD-10 - K63.89) Completely resolved. Reviewed notes from [facility]. Pt is back to a normal diet [...] symptoms. Any developing patterns. Stay well hydrated. [employer] Other 10-10-2023 Evaluation note* Encounter Date Diagnosis [...] intermittent and no worse. Continue daily MVI. [employer] Other 05-31-2023 NotePROCEDURE: XR ELBOW LT MIN 3 VIEWS HISTORY: Pain ; acute left elbow pain; no known injury COMPARISON: None. FINDINGS: BONES:No fracture, acute abnormality, or significant arthropathy. SOFT TISSUES:No visible soft tissue swelling. EFFUSION:None visible. OTHER: Negative. IMPRESSION: 1. No acute bone abnormality or significant degenerative joint disease. Electronically authenticated by: JUMANA YBARRA Date: 2022-08-22 09:[address]31-2023 NotePROCEDURE: XR ANKLE RT MIN 3 VIEWS [...] Electronically authenticated by: JUMANA YBARRA Date: 2022-08-22 09:01[facility]04-10-2023 Evaluation note* Encounter Date [...] I10) chronic - stable on present med. [employer] Other 02-24-2023 Evaluation note* Encounter Date Diagnosis Assessment Notes Treatment Notes Treatment Clinical Notes Apr, Paresthesia (ICD-10 - R20.2) [employer] Other 02-17-2023 Evaluation note* Encounter Date Diagnosis [...] stable. continue present meds. Due for labs. [employer] Other 01-12-2023 Evaluation note* Encounter Date Diagnosis [...] tolerated procedure well. Post care instructions given [employer] Other 07-26-2022 Progress note Author Sherwin Yepez [facility] October 17, 2021 8:28am Note Date/Time October 17, 2021 8:28 am [facility] [address] [place] [address] General Surgery Progress Note Signed Patient: Maritza Espino MR#: [id number] 1524 : 1945 Acct:[id number] Age/Sex: 76 / F Adm Date: 2 Loc: 4N Room: 0L6886-9 Type : REG [facility] [place]: Sherwin Yepez DO Copies to: [...] Mg/0.4 Ml Syringe) 40 mg SUBCUT DAILY@1000 [facility] Stop: 10/17/22 09:59 Famotidine (Famotidine/Pf 20 Mg/2 Ml Vial) 20 mg IV-PUSH Q12HR [facility] Stop: 10/16/22 20:59 Last Admin: 10/16/21 21:53 Dose: 20 mg Hydromorphone HCl (Hydromorphone 0.5 Mg/0.5 Ml Syringe) 1 mg IV-PUSH Q3H PRN PRN Reason: Pain Hydromorphone HCl (Hydromorphone 0.5 Mg/0.5 Ml Syringe) 0.5 mg IV-PUSH Q3H PRN PRN Reason: Pain Last Admin: 10/17/21 06:37 Dose: 0.5 mg Potassium Chloride/Sodium Chloride (0.9 % Nacl-20 Meq Kcl) 1,000 mls @ 80 mls/hr IV .[id number] [facility] Stop: 10/16/22 17:07 Last Admin: 10/17/21 06:37 Dose: 80 mls/hr Metoprolol Tartrate (Metoprolol Tartrate 5 Mg/5 Ml Vial) 5 mg IV-PUSH Q6H [facility] Stop: 10/16/22 17:59 Last Admin: 10/17/21 05:36 [...] % (Auto) 64.8, Lymph % (Auto) 28.9, [place] % (Auto) 5.9, Eos % (Auto) 0.0, Baso % (Auto) 0.4, Neut # (Auto) 12.7 H, Lymph # (Auto) 5.7 H, [place] # (Auto) 1.2 H, Eos # (Auto) [...] today for discharge home Documented By: Sherwin Yepez, 10/17/21 0824 Signed By: <Electronically signed by DO Sherwin Yepez> 10/17/21 0828 [facility] Work Phone: [phone] 218-242903-10-2021 NoteHNO ID: [id number] Author: Andrei Mario Service: ? Author Type: Physician Type: Progress Notes Filed: 06/01/2020 10:13 AM Note Text: NAME: Maritza Espino CLINIC NO.: [id number] DATE OF SERVICE: June 01, 2020 Some [...] Pattern LSI BETHEL (11q22.3): Normal Pattern LSI [id number] (13q14): Normal Pattern CEP 12: Normal Pattern LSI LAMP1 (13q34): Normal Pattern IGH/CCND1 t(11;14)(q13;q32): Negative INTERPRETATION: There is a normal pattern of hybridization with each of the probes tested. 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 1. 11/21/2016 Peripheral blood Flow Cy: Specimen originated from [facility] Specimen #: [id number] Submitting Physician: SACHIN PEREZ II, DO SPECIMEN [...] area is 1.57 meters (more content not included)...[facility] No data available for this section [facility] Evaluation noteNo assessment information available [facility] Work Phone: Evoyaation note* Diagnosis Onset Date Resolution Status Hiatal hernia acute [facility] Work Phone: [facility] [employer] Other Evaluation note* Diagnosis Onset Date Resolution Status CLL (chronic lymphocytic leukemia) acute Hiatal hernia acute [facility] Work Phone: evaluation note* Diagnosis Onset Date Resolution Status CLL (chronic lymphocytic leukemia) acute Contact dermatitis acute Irregular heart rate acute CLL (chronic lymphocytic leukemia) acute CLL (chronic lymphocytic leukemia) acute Hiatal hernia acute [facility] Work Phone: Hisxazb general Narrative - Reported* Type Description Date [...] History hernia repair Hospitalization History see above [employer] Other Hisspxu general Narrative - Reported* Type Description Date [...] thumb Surgical History hernia repair Hospitalization History [facility] /-2 3 [employer] Other Hospital Discharge instructions No data available for this section [facility] Progress note No data available for this section [facility] progress note Author Sachin Perez [facility] June 17, 2023 10:54am Note Date/Time June 17, 2023 10: 26am [facility] [place] [address] Cancer Center Note Signed Patient: Maritza Espino MR#: [id number] 1524 : 1945 Acct:[id number] Age/Sex: 78 / F Type: REG AMB Date of Service: 06/17/23 Copies to: Dang Anguiano MD~ Assessment & Plan A/P (1) CLL (chronic lymphocytic leukemia): Plan Chronic lymphocytic leukemia Diagnosed in 2016 MEDRANO stage 0 Has not required treatment. stable lymphocyte count. We will continue to monitor. She had an ultrasound of her spleen on 06/22/2021 was normal. Monitoring slow weight loss. does not seem to be related to her CLL. Patient Instructions: f/u 1 year cbc, cmp, ldh prior CHEMO PLAN No Active Chemotherapy History of Present Illness HPI 78-year-old female diagnosed with CLL MEDRANO stage 0 in October 2016. She takes no medications and otherwise is very healthy. She has a history of mild arthritis and never needed treatment. She is on Fosamax from her primary care provider also takes lisinopril 2.5 mg multivitamin and folic acid. Calciumand vitamin D3 as well. She followed initially with me at [facility] and then Dr. Beckett at [facility] and now she is following with me again. She had an ultrasound of the spleen June 22, 2021 which was normal. labs from May 2021 show white blood cell count of 17.4 with 11,800 lymphocytesand 4400 neutrophils. Hemoglobin of 13.9 with an MCV of 82.9 and a platelet count of 253,000. 06/16/21 She is doing well. She has lost 4 or 5 lbs in the last year without trying thisis concerning to her. she does not snack. 06/18/2022: Maritza is here for interval 1 year follow up of longstanding CLL; originally diagnosed in October 2016. Clinically, she is doing well. Denies B symptoms (weight loss, night sweats, recent/recurrent or serious infections, no cytopenias, lymphadenopathy or excessive fatigue) She had hiatal hernia repair with Dr. Yepez in September 2021 that was uneventful Most recent laboratories are reviewed and compared to laboratories from May 2021. Currently, her white blood cell count is 18.4 with 12,400 lymphocytes and 4700 neutrophils. Hemoglobin is 14.3; with normal MCV and platelet count of 240,000. 06/17/23 her cat unexpectedly recently. She is upset about that. She is doing well physically. She states she has lost weight but the documentation suggests 8 lbs. denies fevers sweats chills, denies lumps bumps. follows with Dr. Dang Anguiano, lives in [place]. she is on a steroid for a rash. hb normal. wbc stable. plt normal. Intake Vitals/Pain Assessment 06/17/23 10:28 Weight 49.895 kg BP 169/92 H Blood Pressure Location Rt brachial Position Sitting Temp 97.5 F L Temp Source Temporal Pulse 96 Pulse Source NIBP Respiration 16 Pulse Oximetry (%) 96 Oxygen Delivery Method room air Are you having pain? No Intake Visit Reasons: follow up visit Allergies Penicillins Allergy (Unknown, Verified 06/17/23 10:30) Hives amoxicillin Allergy (Verified 06/17/23 10:30) hives, lips swell 12 Hour Decongestant Allergy (Unknown, Uncoded 06/12/23 14:03) Hives - Last Reconciled 06/17/23 by Zenia Lopez aspirin 81 mg PO DAILY calcium carbonate-vitamin D3 600 mg-10 mcg (400 unit) (Calcium 600 + D(3)) 1 tabPO BID losartan 25 mg PO DAILY methylprednisolone PO PER PKG DIR for 6 days metoprolol succinate ER 50 mg PO DAILY multivitamin 1 tab PO DAILY PHQ-2/9 In last 2 wks how often bothered by any of these problems? Little interest or pleasure in doing things: not at all Feeling down, depressed, or hopeless: not at all PHQ-2 Total Score: 0 Gastrointestinal Is the patient taking opioids for pain control?: No Falls Fall Precaution Measures Taken: Patient assisted Nurse's Note: Patient is here today for a follow up visit for CLL and go over labs [facility] Medical History Medical History Large hiatal hernia Irritable bowel syndrome with diarrhea GERD without esophagitis Essential hypertension Chronic sinusitis, unspecified Chronic lymphocytic leukemia Anxiety, generalized CLL (chronic lymphocytic leukemia) Arthritis Hiatal hernia GERD (gastroesophageal reflux disease) Surgical History Surgical History S/P tonsillectomy and adenoidectomy H/O hernia repair Hx of cholecystectomy Hx of colonoscopy Hx of elbow surgery History of tonsillectomy History of cholecystectomy Family History Family History Mother Breast cancer Father CAD (coronary artery disease) Brother Hypertension Legacy FamHx Relation: Brother(s) Diabetes Legacy FamHx Relation: Brother(s) Father Heart disease Mother Heart disease Cancer Legacy FamHx Problem: Diagnosed with Cancer Diabetes Sister Hypertension Social History Social History Smoking status: Never smoker Results - Cancer Ctr (Med Onc) LAB RESULTS Corrected WBC 16.8 X10E3/uL (3.8-11.6) H 06/12/23 09:24 Hgb 14.2 g/dL (11.8-15.4) 06/12/23 09:24 Hct 43.6 % (34.0-46.4) 06/12/23 09:24 MCV 91.0 fl (80-100) 06/12/23 09:24 RDW 13.2 % (11.9-15.3) 06/12/23 09:24 Plt Count 270 x10E3/uL (150-450) 06/12/23 09:24 Sodium 139 mmol/L (136-145) 06/12/23 09:24 Potassium 4.4 mmol/L (3.5-5.1) 06/12/23 09:24 BUN 20 mg/dL (7-25) 06/12/23 09:24 Creatinine 0.87 mg/dL (0.60-1.20) 06/12/23 09:24 Glucose 122 mg/dL (70-100) H 03/20/24 09:24 Est GFR (CKD-EPI) > 60.0 mL/Min 06/12/23 09:24 Calcium 9.5 mg/dL (8.6-10.3) 06/12/23 09:24 Total Bilirubin 0.4 mg/dl (0.3-1.0) 06/12/23 09:24 AST 20 U/L (13-39) 06/12/23 09:24 ALT 14 U/L (7-52) 06/12/23 09:24 Alkaline Phosphatase 71 U/L (34-104) 06/12/23 09:24 Total Protein 6.2 gm/dL (6.4-8.9) L 06/12/23 09:24 Albumin 4.3 gm/dL (3.5-5.7) 06/12/23 09:24 Lactate Dehydrogenase 144 U/L (140-271) 06/12/23 09:24 Dictated By: Sachin Perez II, DO DD/ 1024 Signed By: <Electronically signed by Sachin Perez II, DO> 06/17/23 1054 [facility] Work Phone: Reason for referral (narrative)* Reason Pt has family i n Josh, Admitted to [facility] in the fall, discharge summary scanned in; diarrhea, bowel changes; did not have a colonoscopy in the fall Diagnosis 1 Acute diarrhea (R19. 7) Referral Organization [facility]bertson Referring Provider First Name Dang Referring Provider Last Name Annmarie Referring Provider Specialty Family [facility] Referred Organization [facility] Referred Provider Naty Belle Referred Address [address] [place] [phone] Referred Provider Specialty Gastroentero logy Referral Priority Routine General Notes Silvia Pereira 10:15:03 AM >received today, attachments made, waiting for notes to be locked. [employer] Other Summary Purpose Family History Relationship Condition Age at Onset Recorded Date/T elieser Not Specified Malignant neoplasm of breast Unknown father Coronary artery disease Unknown Relationship Condition Age at Onset Recorded Date/T elieser Not Specified Malignant neoplasm of breast Unknown father Coronary artery disease Unknown brother Hypertension Unknown Diabetes mellitus Unknown father Heart disease Unknown Unknown Not Specified Heart disease Unknown Malignant neoplasm Unknown sister Hypertension Unknown Advance Directives Advance Directive Response Recorded Date/ Time Advance Directives No June 12, 2 022 2:22pm Chief Complaint and Reason for Visit Chief Complaint hitatal hernia luq a bd pain K44.9 R10.12 Hiatal Hernia Hiatal Hernia Chief Complaint hitatal hernia luq a bd pain K44.9 R10.12 Hiatal Hernia Hiatal Hernia Hiatal Hernia Reason for Visit Hiatal hernia Chief Complaint Bowel Issues-Diarrhe a Continued Diarrhea early stage CLL rash Reason for Visit CLL (chronic lymphoc ytic leukemia) Hiatal hernia Chief Complaint Bowel Issues-Diarrhe a Continued Diarrhea rash early stage CLL Reason for Visit CLL (chronic lymphoc ytic leukemia) Contact dermatitis Irregular heart rate CLL (chronic lymphocytic leukemia) CLL (chronic lymphocytic leukemia) Hiatal hernia Reason for Referral Reason 06/25/22 Natalie office, Last OV and labs. Will also scan in labs from last year to send along. Thank you Diagnosis 1 Paresthesia (R20.2) Referral Organization [facility] Referring Provider First Name Dang Referring Provider Last Name Annmarie Referring Provider Specialty Family [facility] Referred Organization [facility] Referred Provider Sharon Davila Referred Address [address], [place],[phone] Referred Provider Specialty Neurology Referral Priority Routine Referral Appointment Date 2022-06-25 General Notes Silvia Pereira 11:05:24 AM >received today, attachments made, form filled out, referral faxed Silvia Pereira 05/31/2022 10:06:11 AM >faxed first attempt letter Silvia Pereira 06/05/2022 08:49:35 AM >RECEIVED FAX WITH APPT DATE Additional Source Comments INFORMATION SOURCE (unrecogn ized section and content) DATE CREATED AUTHOR 04/26/2021 [facility] DATE CREATED AUTHOR AUTHOR'S ORGANIZ ATION 08/31/2022 [facility] DATE CREATED AUTHOR AUTHOR'S ORGANIZ ATION 05/27/2023 [facility] DATE CREATED AUTHOR AUTHOR'S ORGANIZ ATION 06/13/2023 [facility] Care Teams (unrecognized sec tion and content) Team Status: Inactive Member Role Status Dates Dang Anguiano MD Primary Care Provider Active Sherwin Yepez DO Attending Provider Active Team Status: Active Member Role Status Dates Dang Anguiano MD Primary Care Provider Active Team Status: Inactive Member Role Status Dates Dang Anguiano MD Attending Provider Active St art: April 16, 2023 End: April 16, 2023 Team Status: Inactive Member Role Status Dates Dang Anguiano MD Attending Provider Active St art: April 23, 2023 End: April 23, 2023 Team Status: Active Member Role Status Dates Sachin Perez II, Attending Provider Active Start: June 12, 2023 Eugenio Beckett MD Referring Provider Active Sta rt: June 12, 2023 Dang Anguiano MD Primary Care Provider Active Start: June 12, 2023 Team Status: Inactive Member Role Status Dates Dang Anguiano MD Primary Care Provide r, Attending Provider Active Start: June 13, 2023 End: June 13, 2023 Team Status: Inactive Member Role Status Dates Dang Anguiano MD Primary Care Provider Active Start: June 17, 2023 End: June 17, 2023 Sachin Perez II, DO Attending Provider Active Start: June 17, 2023 End: June 17, 2023 Team Status: Active Member Role Status Dates Sachin Perez II, Attending Provider Active Start: June 17, 2023 Eugenio Beckett MD Referring Provider Active Sta rt: June 17, 2023 Dang Anguiano MD Primary Care Provider Active Start: June 17, 2023 Goals (unrecognized section and content) Goals may be documented in a n alternate sectionNo InformationNo InformationNo InformationNo InformationNo InformationNo InformationNo InformationNo InformationNo InformationNo InformationNo InformationNo InformationNo Information No data available for this sectionGoals may be documented in an alternate sectionGoals may be documented in an alternate section REASON FOR VISIT (unrecogniz ed section and content) mole changing, BP issuesNo I nformationtoes/fingers numblabslabs3 month Follow up6 month Follow [facility] Issues- Diarrheacontinued diarrheamessage FOR RECORDS PERTAINING [...] BE BASED ON THE PRIMARY CLINICAL RECORDS. ARE [employer] [facility]. provides no warranty or guarantee of the accuracy or completeness of information in this document.
[2023-06-28 13:53] LABS: C. Difficile PCR NEGATIVE (NEGATIVE)
[2023-06-29 16:09] LABS: Giardia lamblia Ag, EIA Negative (Negative)
[2023-07-01 14:08] LABS: Rotavirus Ag, EIA Negative (Negative)
[2023-07-03 15:08] LABS: Calprotectin, Fecal 16 ug/g (0-120)
[2023-07-04 13:08] LABS: Lactoferrin, Fecal, Quant. <1.00 ug/mL(g) (0.00-7.24)
[2023-07-05 15:09] LABS: Ova + Parasite Exam Final report (.)
== END 2023-06-28 07:38 | disposition home or self-care (01) ==
LOC: LAB 07:37
PROVIDERS: PCP Family Medicine
DX: R19.7 Diarrhea, unspecified (principal)
CPT/HCPCS: 83631; 83993; 87177; 87209; 87329; 87425; 87493; 87507

== ENCOUNTER 2023-07-03 08:47 | Outpatient (OUT) | payer MEDICARE, OTHER, SELFPAY ==
[2023-07-03 10:37] LABS: Free T4 1.06 ng/dL (0.76-1.46)
== END 2023-07-03 08:48 | disposition home or self-care (01) ==
LOC: LAB 08:48
PROVIDERS: PCP Family Medicine; Visit Provider Family Medicine
DX: I49.9 Cardiac arrhythmia, unspecified (principal); R63.4 Abnormal weight loss
CPT/HCPCS: 36415; 84439; 84443

== ENCOUNTER 2024-01-02 14:44 | Outpatient (OUT) | payer MEDICARE, OTHER, SELFPAY ==
--- NOTE | 2024-01-02 14:58 | XR_ITS ---
[address] [address] Patient Name: SHAHNAZ ADAMES MRN: [id number] date: 1945 Sex: F Assigned Patient Location: [facility] Current Patient Location: [facility] Accession/Order Number: [id number] Exam Date: 01/02/2024 15:10 Report Date: 01/05/2024 05:20 At the request of: EVARISTO ANGUIANO Procedure: XR shoulder RT min 2V PROCEDURE: XR shoulder RT min 2V HISTORY: Right Shoulder Pain M25.511 COMPARISON: None. FINDINGS: BONES:Narrowing of the acromioclavicular joint without significant osteophytes. Suspect mild narrowing of the glenohumeral joints; no periarticular osteophytes. SOFT TISSUES:No visible soft tissue swelling. EFFUSION:None visible. OTHER: Negative. XR/XR shoulder RT min 2V IMPRESSION: 1. No appreciable acute abnormality. 2. Mild degenerative changes. Electronically authenticated by: JUMANA YBARRA Date: 01/05/2024 05:20
--- OUTSIDE RECORDS SUMMARY | 2024-01-02 15:00 | XMS_ITS | CCD ---
Author Organization [facility] CliniSyaz Care Team Providers Care Wafer Fabricator Name Role Phone MD Evaristo Anguiano Primary Care Provider DO Sherwin Yepez Attending Provider Evaristo Anguiano Unavailable REQUEST, NONE LISTED Admitting Unavaila ble REQUEST, NONE LISTED Consulting Unavaila ble REQUEST, NONE LISTED Attending Unavaila ble ANNMARIE, DR EVARISTO De Primary Care Unavailable NATALIA PIMENTEL Admitting Unavailable NATALIA PIMENTEL Consulting Unavailable NATALIA PIMENTEL Attending Unavailable ANNMARIE, DR EVARISTO De Primary Care Unavailable ANNMARIE, DR EVARISTO De Primary Care Unavailable ANGUIANO, DR EVARISTO De Consulting Unavailable ANGUIANO, DR EVARISTO De Attending Unavailable ANGUIANO, DR EVARISTO De Admitting Unavailable KRISHAN GONSALEZ Admitting Unavailable KRISHAN GONSALEZ Attending Unavailable TATE, DR JUMANA Lemus Consulting Unavailable ANNMARIE, DR EVARISTO De Primary Care Unavailable KRISHAN GONSALEZ Consulting Unavailable EVARISTO ANGUIANO Primary Care Physician [phone] Frederick Perez II Admitting Unavaila ble Aan HASSAN, Frederick Diop Attending Unavaila ble Eugenio Beckett Referring Unavailable Evaristo Anguiano Primary Care Unavailable DO Frederick Perez II Attending Provider [phone] MD Eugenio Beckett Referring Provider Unavailable MD Evaristo Anguiano Primary Care Provider [phone] DO Frederick Perez II Attending Provider [phone] MD Eugenio Beckett Referring Provider Unavailable MD Evaristo Anguiano Primary Care Provider [phone] Papito Tripp Attending Unavailable Papito Tripp Referring Unavailable Papito Tripp Admitting Unavailable Papito Tripp Attending Unavailable Mouchli, Mohamad A. Attending Unavailable Allergies Allergy Classification Reported Allergen(s) Allergy Type Date of Onset Reaction(s) Facility (18 sources) Amoxicillin; Translations: [Amoxicillin] Drug Allergy 01-29-20 Weal (disorder) [facility] (13 sources) Penicillin Drug Allergy Unknown [facility] Other (7 sources) Pseudoephedrine Drug Allergy 03-25-19 Unknown [facility] Other (3 sources) Penicillins Allergy to substance 06-13-19 [facility] (3 sources) 12 Hour Decongestant Allergy to substance 06-12-19 [facility] Medications Current Medications Medication Drug Class(es) Dates Sig (Normalized) Sig (Original) aspirin 81 mg oral capsule (15 sources) Platelet Aggregation Inhibitor, Nonsteroidal Anti-inflammatory Drug Start: 05-27-2023 take 1 mg by mouth every twenty-four hours aspirin 81 mg oral capsule mg cap(s), Oral, q24hr, Refills(s) 0, Blood Thinner Start Date: 05/27/23 Status: Ordered Start: 06-16-2021 take 81 mg by mouth once daily Aspirin Active 81 MG PO Daily June 16, 2021 12:00am take 1 tablet by sarah th every twenty-four hours Aspirin 81 MG 1 tablet Orally Once a day Active calcium carbonate 1500 mg oral tablet (3 sources) Start: 05-27-2023 take 1 mg by mouth once daily calcium (as carbonate) 600 mg oral tablet mg tab(s), Oral, Daily, Refills(s) 0, Indigestion Start Date: 05/27/23 Status: Ordered calcium carbonate 1500 mg / cholecalciferol 0.01 mg oral tablet (5 sources) Vitamin D Start: 10-06-2021 take 1 tablet by mouth twice daily Calcium Carbonate-Vitamin D3 (Calcium 600 + D(3)) 600 mg-10 mcg (400 unit) Tablet Active 1 TAB PO Twice daily October 06, 2021 12:00am [facility] (3 sources) Start: 05-27-2023 take 1 tablet by mouth once daily [facility] 1 tab(s), Oral, Daily, Refill(s) 0, Prophylaxis Start Date: 05/27/23 Status: Ordered Start: 05-27-2023 [facility] Oral, Daily, Refill(s) 0 Start Date: 05/27/23 Status: Ordered cholestyramine resin 4000 mg powder for oral suspension (3 sources) Bile Acid Sequestrant Start: 05-27-2023 Questran 4 g/9 g oral powder = 1 packet(s), Oral, Daily, PRN Diarrhea, # 30 EA, Refills(s) 4, Pharmacy: [facility]/pharmacy #[id number], 159, cm, 05/27/23 12:05:00 EST, Height/Length Dosing, 50.6, kg, 05/27/23 12:05:00 EST, Weight Dosing Start Date: 05/27/23 Status: Ordered hyoscyamine sulfate 0.125 mg oral tablet (2 sources) take 1 tablet by mouth every four hours Levsin 0.125 MG 1 tablet as needed Orally every 4 hrs Active losartan potassium 25 mg oral tablet (19 sources) Angiotensin 2 Receptor Abilio Start: 06-18-2022 take 1 mg by mouth once daily losartan 25 mg Tab mg tab(s), Oral, Daily, Refills(s) 0, High blood pressure Start Date: 05/27/23 Status: Ordered methylcellulose 2000 mg powder for oral suspension (3 sources) Start: 05-27-2023 take 2 g by mouth twice daily Citrucel 2 g/19 g oral powder 2 gm, Oral, BID, # 507 gm, Refills(s) 3, Pharmacy: [facility]/pharmacy #[id number], 159, cm, 05/27/23 12:05:00 EST, Height/Length Dosing, 50.6, kg, 05/27/23 12:05:00 EST, Weight Dosing Start Date: 05/27/23 Status: Ordered Methylprednisolone (3 sources) Corticosteroid Start: 06-13-2023 Methylprednisolone Active 0 PO per package directions June 13, 2023 12:00am PO PER PKG DIR for 6 days 24 hr metoprolol succinate 50 mg extended release oral tablet (5 sources) beta-Adrenergic Abilio Start: 06-16-2021 take 50 mg by mouth once daily Metoprolol Succinate Active 50 MG PO Daily June 16, 2021 12:00am Multivitamin (Multiple Vitamin) Tablet (1 source) Start: 06-16-2021 take 1 tablet by mouth once daily Multivitamin (Multiple Vitamin) Tablet Active 1 TAB PO Daily June 16, 2021 12:00am Multivitamin preparation (17 sources) Start: 06-16-2021 take 1 tablet by [...] Sig (Original) acetaminophen 325 mg oral tablet (4 sources) Start: 10-17-2021 End: 06-18-2022 take 650 mg by mouth every four hours Acetaminophen Discontinued 650 MG PO Q4H October 17, 2021 12:00am June 18, 2022 10:38am Calcium (12 sources) Phosphate Binder, Calcium Start: 06-16-2021 End: 10-06-2021 take 600 mg by mouth once daily Calcium Discontinued 600 MG PO Daily June 16, 2021 12:00am October 06, 2021 11:03am Calcium + D3 Act greer fluticasone propionate 0.05 mg/actuat metered dose nasal spray (5 sources) Corticosteroid Start: 10-06-2021 End: 06-18-2022 Fluticasone Propionate Discontinued 2 SPRAY INTRANASAL Daily October 06, 2021 12:00am June 18, 2022 10:51am Problems Problem Classification Problem Date Documented Da te Episodic/Chronic Abdominal hernia (20 sources) Hiatal hernia; Translations: [Diaphragmatic hernia without obstruction or gangrene] Onset: 10-17-2021 Episodic Allergic reactions (4 sources) Contact dermatitis; Translations: [Unspecified contact dermatitis, unspecified cause] 06-13-2023 Episodic Anxiety disorders (20 sources) Anxiety; Translations: [Anxiety disorder, unspecified] Chronic Bacterial infection; unspecified site (13 sources) Bacterial infectious disease; Translations: [Other specified bacterial agents as the cause of diseases classified elsewhere] Episodic Cardiac dysrhythmias (4 sources) Irregular heart beat; Translations: [Cardiac arrhythmia, unspecified] 06-13-2023 Chronic Esophageal disorders (9 sources) Gastroesophageal reflux disease without esophagitis; Translations: [Gastro-esophageal reflux disease without esophagitis] Chronic Essential hypertension (20 sources) Essential hypertension; Translations: [Essential (primary) hypertension] [...] Translations: [Diarrhea, unspecified] Onset: 4 Episodic Other gastrointestinal disorders (2 sources) Altered bowel function; Translations: [Change in bowel habit] Onset: 4 Episodic Other nervous system disorders (13 sources) Pain in limb; Translations: [Paresthesia of skin] Episodic Other nervous system disorders (7 sources) Paresthesia of skin; Translations: [PARESTHESIA OF SKIN] Onset: 3 Episodic Other nutritional; endocrine; and metabolic disorders (14 sources) Weight loss; Translations: [Abnormal weight loss] 07-03-2023 Episodic Other nutritional; endocrine; and metabolic disorders (1 source) Abnormal weight loss; Translations: [Abnormal weight loss] Onset: 4 Episodic Other nutritional; endocrine; and metabolic disorders (1 source) Abnormal weight loss; Translations: [Loss of weight] 07-03-2023 Episodic Other screening for suspected conditions (not [...] Test Name Value Interpretation Reference Range Facility Gastroenterology Office/Clin ic Noteon 08-14-2023 Gastroenterology Office/Clinic Note Chief Complaint follow up colon HPI Staff Patient is a 78 year old female here today to review colonoscopy results. Stool studies ordered 06/24/23 have not been completed. Colonoscopy Findings : 07/10/2023 Solid and liquid stool throughout the whole colon Diverticulosis throughout the whole colon status post random colon biopsies Internal hemorrhoids Normal examined terminal ileum Pathology: COLON, RANDOM, BIOPSY: - Benign colonic mucosa with lymphoid aggregates. - No evidence of chronic, active or microscopic colitis identified. Repeat colonoscopy:: As previously scheduled for screening purposes since this colonoscopy is not considered as a good test for polyp detection given poor bowel prep . Dr Tripp Assessment/Plan: 05/27/2023 1. Diarrhea, unspecified (R19.7: Diarrhea, unspecified) 2. Weight loss (R63.4: Abnormal weight loss) 3. Burping (R14.2: Eructation) 4. Hiatal hernia (K44.9: Diaphragmatic hernia without obstruction or gangrene) Orders: cholestyramine, = 1 packet(s), Oral, Daily, PRN Diarrhea, # 30 EA, Refills(s) 4, Pharmacy: [facility]/pharmacy #[id number], 159, cm, 05/27/23 12:05:00 EST, Height/Length Dosing, 50.6, kg, 05/27/23 12:05:00 EST, Weight Dosing methylcellulose, 2 gm, Oral, BID, # 507 gm, Refills(s) 3, Pharmacy: [facility]/pharmacy #[id number], 159, cm, 05/27/23 12:05:00 EST, Height/Length Dosing, 50.6, kg, 05/27/23 12:05:00 EST, Weight Dosing Advised to keep herself hydrated Advised to consume more fiber Citrucel twice daily Questran once daily as needed Stool studies and colonoscopy with random biopsies if diarrhea comes back To schedule follow-up if symptoms come back or weight loss get worse History of Present Illness I have reviewed HPI staff note, most recent labs and imaging, more than 30 minutes spent reviewing the chart, during encounter, placing orders and counseling the patient. PT feels well had some acid reflux and gas after colonoscopy but this resolved pt responded to Questran pt trying to eat weight is stable Review of Systems All systems reviewed, negative except as mentioned above Physical Exam Vitals & Measurements HR: 92(Peripheral) RR: 16 BP: 160/84 HT: 63 in HT: 159 cm WT: 50.6 kg WT: 111.32 lb BMI: 20.02 General: alert, no acute distress HEENT: atraumatic normocephalic Cardiovascular: regular rate and rhythm, normal peripheral perfusion Respiratory: Lungs CTA, respirations non labored Extremities: no deformity, no trauma Abdomen: Benign, soft, nontender nondistended Assessment/Plan 1. Altered bowel habits (R19.4: Change in bowel habit) continue Citrucel and Questran hold on repeating colonoscopy since she is not interested and weight is stable Follow-up No qualifying data available Problem List/Past Medical History Ongoing Altered bowel habits Historical No qualifying data Procedure/Surgical History Colonoscopy (07/10/2023), Hiatal hernia (03/25/2021), Colonoscopy (03/25/2017), Elbow (03/25/2013), Gallbladder (08/23/1997), Tonsil. Medications aspirin 81 mg oral capsule, Oral, q24hr calcium (as carbonate) 600 mg oral tablet, Oral, Daily [facility], 1 tab(s), Oral, Daily Citrucel 2 g/19 g oral powder, 2 gm, Oral, BID, 3 refills losartan 25 mg Tab, Oral, Daily Questran 4 g/9 g oral powder, 1 packet(s), Oral, Daily, PRN, 4 refills Allergies amoxicillin (Hives) Social History Tobacco Never (less than 100 in lifetime) Tobacco Use:., 08/14/2023 Never (less than 100 in lifetime) Tobacco Use:., 05/27/2023 Family History Family history is negative Immunizations Vaccine Date Status Comments influenza virus vaccine, inactivated 12/25/2022 Recorded SARS-CoV-2 (COVID-19) [id number] 02/13/2022 Recorded influenza virus vaccine, inactivated 12/13/2021 [...] Recorded influenza virus vaccine, inactivated 01/21/2017 Recorded [facility] Comment on above: Result Comment: Elec tronically Signed By: Qasim PORTER, Papito Jo\.br\Date and Time Signed: 08/14/23 13:41 EDT Postoperative Documentson Postoperative Documents [id number] .00TIFF [facility] IntraOperative Documentson 0 07-15-2023 IntraOperative Documents [id number]. 00TIFF [facility] Consenton 07-11-2023 Consent [id number]. 00TIFF [facility] Discharge Instructionson Discharge Instructions [id number]. 00TIFF [facility] Main OR Intraoperative Recor don 07-11-2023 Main OR Intraoperative Record IntraOp Document Type FT Summary Primary Physician: Papito Tripp MD Finalized Date/Time: 07/11/23 07:58:38 Pt. Name: MARITZA ESPINO Kenisha Kingsley/Sex: 1945 Female Med Rec #: [id number] Physician: Papito Tripp MD Financial #: [id number] Pt. Type: O Room/Bed: / Admit/Disch: 07/10/23 08:28:32 - 07/10/23 23:59:59 Institution: Case Times FT Entry 1 Patient Times In Room 07/10/23 10:32:00 Out Room 07/10/23 10:54:00 Procedure Times Start 07/10/23 10:37:00 Stop 07/10/23 10:50:00 Anesthesia Times Start 07/10/23 10:32:00 Stop 07/10/23 10:54:00 Time at [place] 07/10/23 10:43:00 Last Modified By: Kristina Barroso RN 07/10/23 10:54:08 General Comments: 07/11/23 Chart opened for charge review per Sarah Villalba RN. [place] Case Attendance FT Entry 1 Entry 2 Entry 3 Case Attendee Danitza RIVERA, Drake Barroso RN, Kristina Mcfarlane RIPSHEAR OPERATOR, Tonja Blanca Role Performed Anesthesiologist Counselor Marriage And Family - Primary Scrub - Primary Rotary Swaging Machine Operator Time In 07/10/23 10:32:00 07/10/23 10:32:00 07/10/23 10:32:00 Time Out 07/10/23 10:54:00 07/10/23 10:54:00 07/10/23 10:54:00 Procedure COLONOSCOPY(.) COLONOSCOPY(.) COLONOSCOPY(.) Comments Dr. Nelson is supervising Last Modified By: Dharmesh GOMEZ, Kristina Barroso RN, Kristina Barber RN 07/10/23 10:54:09 07/10/23 10:54:09 07/10/23 10:54:09 Entry 4 Case Attendee Papito Tripp MD Role Performed Surgeon - Primary Time In 07/10/23 10:32:00 Time Out 07/10/23 10:54:00 Procedure COLONOSCOPY(.) Comments Last Modified By: Kristina Barroos RN 07/10/23 10:54:09 Perioperative Protocols FT Pre-Care Text: Implements protective measures prior to operative or invasive procedure, confirms identity before the operative or invasive procedure, verifies operative procedure, surgical site, and laterality Entry 1 Procedure(s) COLONOSCOPY(.) Patient Identity Birthday, ID Band Verified (select at Check, Patient least 2): Participation Consents / H and P Anesthesia Consent, Operative Site N/A Verified HandP, Surgery/Procedure Marking Verified Consent Surgical Site No Laterality Verified n/a Verified Procedure Verified Yes Correct Patient Yes Position Verified Availability Equipment, Medication Prep Dry n/a Verified (If Applicable) PreOp Antibiotic No Time Out Drake Huertas, Given Participants Kristina Barroso RN, Denys PRYOR, Qasim Francois MD, Papito Jo Time Out Complete 07/10/23 10:34:00 Outcomes Met? Yes Last Modified By: Kristina Barroso RN 07/10/23 10:34:49 Post-Care Text: The patient is free from signs and symptoms of injury caused by extraneous objects Allergy Information FT Pre-Care Text: Verifies allergies Entry 1 Allergies Reviewed? Yes Allergies Reviewed Self/Patient With Outcomes Met? Yes Last Modified By: Kristina Barroso RN 07/10/23 10:34:56 Post-Care Text: The patient received appropriate medication(s) safely administered during the perioperative period Surgical Procedures FT Entry 1 Procedure Description Procedure COLONOSCOPY Modifiers . Surgeon Description Colonoscopy with random colon biopsies. Primary Procedure Yes Primary Surgeon Qasim PORTER, Papito Jo Start 07/10/23 10:37:00 Stop 07/10/23 10:50:00 Anesthesia Type General Surgical Service Gastroenterology Wound Class 2 - Clean-Contaminated Last Modified By: Kristina Barroso RN 07/10/23 10:51:15 General Case Data FT Pre-Care Text: Classifies surgical wound, implements aseptic technique, initiates traffic control Entry 1 Case Information OR ENDO 1 FT Case Level Level 2 Wound Class 2 - Clean-Contaminated Specialty Gastroenterology ASA Class 3 Preop Diagnosis Diarrhea Postop Same As Preop No Postop Diagnosis Poor prep, Outcomes Met? Yes diverticulosis, hemmoroids Last Modified By: Kristina Barroso RN 07/10/23 10:52:42 Post-Care Text: The patient is free from signs and symptoms of infection Skin Assessment (Pre Procedure) FT Pre-Care Text: Implements protective measures to prevent skin/ tissue injury due to thermal or mechanical sources Evaluates for signs and symptoms of physical injury to skin and tissue Entry 1 Skin Integrity Intact, [place], Warm, and Skin Abnormality No Dry Outcomes Met? Yes Last Modified By: Kristina Barroso RN 07/10/23 10:35:27 Post-Care Text: The patient is free from signs and symptoms of injury caused by extraneous objects Patient Positioning FT Pre-Care Text: Identifies physical alterations that require additional precautions for procedure-specific positioning, verifies presence of prosthetics or corrective devices, positions the patient, evaluates the patient for signs and symptoms of injury as a result of positioning Entry 1 Procedure COLONOSCOPY(.) Body Position Lateral, right side up Feet Uncrossed? Yes Left Arm Position Resting at Side Right Arm Position Resting at Side Left Leg Position Extended (more content not included)... Normal [facility] Colonoscopy Procedure Report on 07-10-2023 Colonoscopy Procedure Report Patient: MARITZA ESPINO Age: 78 years Sex: Female : 1945 Associated Diagnoses: None Author: Papito Tripp MD Pre-Procedure Procedure Date 05/17/2023 09:11:00 . Procedure Type: Colonoscopy with biopsy. Procedure provider Performed by Papito Tripp MD. Current history and physical Documented on chart. Hiatal hernia ([id number]) on 03/25/2021 at 76 Years. Colonoscopy ([id number]) on 03/25/2017 at 72 Years. Elbow ([id number]) on 03/25/2013 at 68 Years. Gallbladder ([id number]) on 08/23/1997 at 52 Years. Tonsil ([id number]).. Past Medical History No active or resolved past medical history items have been selected or recorded.. Family History Entire family history is negative.. Procedure History Hiatal hernia ([id number]) on 03/25/2021 at 76 Years. Colonoscopy ([id number]) on 03/25/2017 at 72 Years. Elbow ([id number]) on 03/25/2013 at 68 Years. Gallbladder ([id number]) on 08/23/1997 at 52 Years. Tonsil ([id number]).. Colorectal neoplasm risk assessment Average risk. Informed Consent After discussing the rationale, risks and benefits, and alternatives to this procedure, the patient provided signed consent for the procedure. Pre-procedure diagnosis: Diarrhea, clinically significant. Medications (Selected) Inpatient Medications Ordered Lactated Ringers IV Leilani 1000 mL 1,000 mL: 1,000 mL, IV, 100 mL/hr, Routine, Start date 07/10/23 8:50:00 EDT, 10 hour(s), Total volume (mL): 1,000, 50.6 kg, 1.49, m2 Sodium Chloride 0.9% IV Leilani 1000 mL 1,000 mL: 1,000 mL, IV, 20 mL/hr, Routine, Start date 07/10/23 6:47:00 EDT, 50 hour(s), Total volume (mL): 1,000 Prescriptions Prescribed Citrucel 2 g/19 g oral powder: 2 gm, Oral, BID, # 507 gm, Refills(s) 3, [id number], cm, 05/27/23 12:05:00 EST, Height/Length Dosing, 50.6, kg, 05/27/23 12:05:00 EST, Weight Dosing Questran 4 g/9 g oral powder: = 1 packet(s), Oral, Daily, PRN Diarrhea, # 30 EA, Refills(s) 4, [id number] 159, cm, 05/27/23 12:05:00 EST, Height/Length Dosing, 50.6, kg, 05/27/23 12:05:00 EST, Weight Dosing Documented Medications Documented [facility]: 1 tab(s), Oral, Daily, Refill(s) 0, Prophylaxis aspirin 81 mg oral capsule: mg cap(s), Oral, q24hr, Refills(s) 0, Blood Thinner calcium (as carbonate) 600 mg oral tablet: mg tab(s), Oral, Daily, Refills(s) 0, Indigestion losartan 25 mg Tab: mg tab(s), Oral, Daily, Refills(s) 0, High blood pressure ASA Classification: Class II. . Monitoring: See anesthesia record. . Procedure The procedure was performed in the hospital. See anesthesia record for sedation given during procedure. The patient was positioned starting in the left lateral decubitus position. Endoscope type used was. The endoscope was lubricated then introduced through the anus. The scope was advanced to the terminal ileum. No difficulties encountered during the procedure. The bowel preparation quality was good and was adequate (see polyps greater than or equal to 6 millimeters). The patient tolerated the procedure well. Findings Solid and liquid stool throughout the whole colon Diverticulosis throughout the whole colon status post random colon biopsies Internal hemorrhoids Normal examined terminal ileum Images Procedure images: [id number]_hd_video_4_ [id number].jpg [id number].jpg [id number]_video_[id number].jpg [id number]_hd_video_[id number].jpg [id number]_video_4_[id number].jpg [id number]_hd_video_4_ _[id number].jpg [id number]_video_[id number].jpg . Post-Procedure Complications: none. Estimated blood loss: none. Specimens: sent to pathology. Devices/ implants: none left in place. Impression and Plan Diagnosis: Poor bowel prep Diverticulosis Internal hemorrhoids. Recommendations: Repeat colonoscopy:: As previously scheduled for screening purposes since this colonoscopy is not considered as a good test for polyp detection given poor bowel prep . Follow-up:: As needed. Diet:: Regular diet. Medication resumption:: Continue current medications. Return to activities:: After 24 hours. Education and Follow-up: Counseled: Family. Braulio [facility] Comment on above: Other Comment: Anisha shell Attachment - attachment storage system not supported [id number] Can be viewed in source system Missing Attachment - attachment storage system not supported [id number] Can be viewed in source system Missing Attachment - attachment storage system not supported [id number] Can be viewed in source system Missing Attachment - attachment storage system not supported [id number] Can be viewed in source system Missing Attachment - attachment storage system not supported [id number] Can be viewed in source system Missing Attachment - attachment storage system not supported [id number] Can be viewed in source system Missing Attachment - attachment storage system not supported [id number] Can be viewed in source system Missing Attachment - attachment storage system not supported [id number] Can be viewed in source system Consent for Treatmenton 06-23 Consent for Treatment [id number] .00TIFF Normal [facility] Inpatient Patient Summaryon 07-10-2023 Inpatient Patient Summary [place] [id number] [facility] Clinical Discharge Instructions PERSON INFORMATION Name: MARITZA ESPINO [facility]#:[id number] PHYSICIANS Admitting Physician: Papito Tripp MD Attending Physician: Papito Tripp MD PCP: EVARISTO ANGUIANO MD Discharge Diagnosis: Comment: PATIENT EDUCATION INFORMATION Instructions: Colonoscopy, Care After Surgery Salam (CUSTOM); Hemorrhoids; Diverticulosis MAGR (CUSTOM) Medication Leaflets: Follow up: With: Address: When: Papito Tripp [address] [place] [address], [address] [place] [id number] [phone] Business (1) Comments: office wll call for follow up MEDICATION LIST Medications to Continue with No Changes Other Medications aspirin (aspirin 81 mg oral capsule) By Mouth every 24 hours. calcium carbonate (calcium (as carbonate) 600 mg oral tablet) By Mouth every day. cholestyramine (Questran 4 g/9 g oral powder) 1 Packets By Mouth every day as needed Diarrhea. Refills: 4. losartan (losartan 25 mg Tab) By Mouth every day. methylcellulose (Citrucel 2 g/19 g oral powder) 2 Gram By Mouth 2 times a day. Refills: 3. multivitamin with minerals ([facility]) 1 Tablets By Mouth every day. Comment: Normal [facility] Main OR PACU I Recordon 06-23 Main OR PACU I Record PACU Phase I Docum ent Type FT Summary Primary Physician: Papito Tripp MD Finalized Date/Time: 07/10/23 12:44:16 Pt. Name: MARITZA ESPINO /Sex: 1945 Female Med Rec #: [id number] Physician: Papito Tripp MD Financial #: [id number] Pt. Type: O Room/Bed: / Admit/Disch: 07/10/23 08:28:32 - Institution: Case Times PACU I FT Pre-Care Text: Identifies barriers to communication and implements measures to provide psychological support Develops individualized plan of care, and ensures continuity of care Maintains patient's dignity and privacy, and maintains patient confidentiality Identifies and reports philosophical, cultural, and spiritual beliefs and values Identifies individual values and wishes concerning care Implements aseptic technique, and administers prescribed antibiotic therapy and immunizing agents as ordered Evaluates postoperative tissue perfusion Implements thermoregulation measures, and monitors body temperature Evaluates postoperative respiratory status Evaluates postoperative cardiac status Evaluates postoperative neurological status Assesses pain control, collaborated in initiating patient-controlled analgesia and implements alternative methods of pain control Verifies allergies, administers prescribed medications and solutions, evaluates response to medications Entry 1 In PACU I 07/10/23 10:57:00 Discharge from PACU 07/10/23 11:27:00 I Outcomes Met? Yes Last Modified By: Brandee Smith RN 07/10/23 12:44:15 Post-Care Text: The patient demonstrates knowledge of the expected response to the operative or invasive procedure The patient's care is consistent with the individualized perioperative plan of care The patient's right to privacy is maintained The patient's value system, lifestyle, ethnicity, and culture are considered, respected, and incorporated into the perioperative plan of care The patient participates in decisions affecting his or her perioperative plan of care The patient is free from signs and symptoms of infection The patient has wound/tissue perfusion consistent with or improved from baseline levels established preoperatively The patient is at or returning to normothermia at the conclusion of the immediate postoperative period The patient's respiratory function is consistent with or improved from baseline levels established preoperatively The patient's cardiovascular status is consistent with or improved from baseline levels established preoperatively The patient's cardiovascular status is consistent with or improved from baseline levels established preoperatively The patient demonstrates and/or reports adequate pain control throughout the perioperative period The patient received appropriate medication(s), safely administered during the perioperative period Acuity Level PACU I FT Entry 1 Start Time 07/10/23 10:57:00 Stop Time 07/10/23 11:27:00 Acuity Level Acuity Level I Last Modified By: Brandee Smith RN 07/10/23 12:44:05 Finalized By: Brandee Smith RN Document Signatures Signed By: Brandee Smith RN 07/10/23 12:[address] [facility] Main OR Preoperative Recordo n 07-10-2023 Main OR Preoperative Record Holding Area Document Type FT Summary Primary Physician: Papito Tripp MD Finalized Date/Time: 07/10/23 08:52:25 Pt. Name: MARITZA ESPINO Kenisha Pérez/Sex: 1945 Female Med Rec #: [id number] Physician: Papito Tripp MD Financial #: [id number] Pt. Type: O Room/Bed: / Admit/Disch: 07/10/23 08:28:32 - Institution: Case Times Holding FT Pre-Care Text: Verifies consent for planned procedure, identifies individual values and wishes concerning care, includes family members in perioperative teaching Secures patient's records' belongings, and valuables, maintains patient's dignity and privacy, and maintains patient confidentiality Entry 1 In Holding 07/10/23 08:36:00 Outcomes Met? Yes Last Modified By: Kristina Barroso RN 07/10/23 08:48:14 Post-Care Text: The patient participates in decisions affecting his or her perioperative plan of care The patient's right to privacy is maintained Surgery Checklist FT Entry 1 Patient Birthday, ID Band Procedure History and Physical, Identification: Check, Patient Verification: Surgical Consent, With Participation Patient NPO after Midnight: No Date/Time: 07/10/23 05:30:00 Personal Items: Glasses Personal Items clothes Comment: Limitations: no Complaints of Pain: No Pain Comment: no Operative Site n/a Marking: Marked By: n/a Availability Equipment Verified: Does Patient Smoke No Patient states Yes Comment - Adult Teresita- sister n law postop adult Supervision supervision available Case Cancelled in No Holding Area see comments below for reason Last Modified By: Kristina Barroso RN 07/10/23 08:49:38 General Comments: Patient tolerated prep ok, could not take the last dose in fear of bringing it back up, last owel movement was clear yellow./LINDSEYRN Finalized By: Kristina Barroso RN Document Signatures Signed By: Kristina Barroso RN 07/10/23 08:52 Normal [facility] Monitor Recordon 07-10-2023 Monitor Record [id number]# 1.00TIFF Normal [facility] Monitor Record [id number]# 1.00TIFF Normal [facility] Monitor Record [id number]# 1.00TIFF Normal [facility] Monitor Record [id number]# 1.00TIFF Normal [facility] Outpatient Surgery Discharge Instructionon 07-10-2023 Outpatient Surgery Discharge Instruction [place] [id number] Patient Discharge Instructions PERSON INFORMATION Name: MARITZA ESPINO Date of : 1945 Current Date: 07/10/2023 11:13:46 PHYSICIANS Admitting Physician: Papito Tripp MD Discharge Diagnosis: MARITZA ESPINO has been given the following list of follow-up instructions, prescriptions, and patient education materials: PATIENT FOLLOW-UP INFORMATION Diet: Regular Discharge Restrictions: No driving for 24 hrs, Do not operate machinery or tools, Do not make important decisions for 24 hours, Do not drink alcoholic beverages for 24 hours Call Your Doctor For: Temperature above 101.5 degrees, Severe pain at the operative site, Persistent vomiting IF UNABLE TO CONTACT YOUR PHYSICIAN AND YOU FEEL IT IS AN EMERGENCY, GO TO THE NEAREST EMERGENCY ROOM OR CALL 911 I MARITZA ESPINO, have received the attached patient education materials/instruction s and have verbalized understanding: May we do a follow up call? Yes No I was present when discharge instructions were given Patient Signature Date Clinican/Nurse Signature Date Follow up: With: Address: When: Eniderindenice Tripp [address] [place] [address], [address] [place] [address] [phone] Business (1) Comments: office wll call for follow up Pharmacy Information: You may receive a survey from [employer] asking you to rate your care experience. Your feedback is important and will help us understand what we do well and how we can improve the quality of care we provide to you, your loved ones and our community. It?s an honor to serve you. Thank you for choosing [facility] HERE ARE THE MEDICATION CHANGES THAT OCCURRED DURING YOUR HOSPITAL STAY Medications to Continue with No Changes Other Medications aspirin (aspirin 81 mg oral capsule) By Mouth every 24 hours. calcium carbonate (calcium (as carbonate) 600 mg oral tablet) By Mouth every day. cholestyramine (Questran 4 g/9 g oral powder) 1 Packets By Mouth every day as needed Diarrhea. Refills: 4. losartan (losartan 25 mg Tab) By Mouth every day. methylcellulose (Citrucel 2 g/19 g oral powder) 2 Gram By Mouth 2 times a day. Refills: 3. multivitamin with minerals (Centrum Women's) 1 Tablets By Mouth every day. PATIENT EDUCATION INFORMATION Instructions: Colonoscopy Care After Surgery Please read the instructions outlined below and refer to this sheet in the next few weeks. These discharge instructions provide you with general information on caring for yourself after you leave the hospital. Your doctor may also give you specific instructions. While your treatment has been planned according to the most current medical practices available, unavoidable complications occasionally occur. If you have any problems or questions after discharge, please call your doctor. ACTIVITY You may resume your regular activity, but move at a slower pace for the next 24 hours. Take frequent rest periods for the next 24 hours. Walking will help get rid of the air and reduce the bloated feeling in your abdomen (belly). No driving for 24 hours (because of the anesthesia (medicine) used during the test). You may shower. Do not sign any important legal documents or operate any machinery for 24 hours (because of the anesthesia used during the test). NUTRITION Drink plenty of fluids. You may resume your normal diet as instructed by your doctor. Begin with a light meal and progress to your normal diet. Heavy or fried foods are harder to digest and may make you feel nauseated (sick to your stomach). Avoid alcoholic beverages for 24 hours or as instructed. MEDICATIONS You may resume your normal medications unless your doctor tells you otherwise. WHAT YOU CAN EXPECT TODAY Some feelings of bloating in the abdomen. Passage of more gas than usual. Spotting of blood in your stool or on the toilet paper. FOLLOW-UP Your doctor will discuss the results of your test with you. SEEK IMMEDIATE MEDICAL ATTENTION IF: There is more than a spotting of blood in your stool. There is abdominal distention (your abdomen is swollen). There is vomiting. You have a temperature over 101.5 F. There is abdominal pain or discomfort that is severe or gets worse throughout the day. Hemorrhoids Hemorrhoids are swollen veins in and around the rectum or anus. There are two types of hemorrhoids: ? Internal hemorrhoids. These occur in the veins that are just inside the rectum. They may poke through to the outside and become irritated and painful. ? External hemorrhoids. These (more content not included)... Normal [facility] Patient Education - Texton 0 07-10-2023 Patient Education - Text Colonoscopy Care After Surgery Please read the instructions outlined below and refer to this sheet in the next few weeks. These discharge instructions provide you with general information on caring for yourself after you leave the hospital. Your doctor may also give you specific instructions. While your treatment has been planned according to the most current medical practices available, unavoidable complications occasionally occur. If you have any problems or questions after discharge, please call your doctor. ACTIVITY You may resume your regular activity, but move at a slower pace for the next 24 hours. Take frequent rest periods for the next 24 hours. Walking will help get rid of the air and reduce the bloated feeling in your abdomen (belly). No driving for 24 hours (because of the anesthesia (medicine) used during the test). You may shower. Do not sign any important legal documents or operate any machinery for 24 hours (because of the anesthesia used during the test). NUTRITION Drink plenty of fluids. You may resume your normal diet as instructed by your doctor. Begin with a light meal and progress to your normal diet. Heavy or fried foods are harder to digest and may make you feel nauseated (sick to your stomach). Avoid alcoholic beverages for 24 hours or as instructed. MEDICATIONS You may resume your normal medications unless your doctor tells you otherwise. WHAT YOU CAN EXPECT TODAY Some feelings of bloating in the abdomen. Passage of more gas than usual. Spotting of blood in your stool or on the toilet paper. FOLLOW-UP Your doctor will discuss the results of your test with you. SEEK IMMEDIATE MEDICAL ATTENTION IF: There is more than a spotting of blood in your stool. There is abdominal distention (your abdomen is swollen). There is vomiting. You have a temperature over 101.5 F. There is abdominal pain or discomfort that is severe or gets worse throughout the day. Diverticulosis Many people have small pouches in their colon called diverticulum. The diverticulum bulge outward through weak spots in the colon. You could have one or more of these pouches in the colon. The condition of having these pouches in the colon is called diverticulosis or diverticular disease. Diverticulosis is usually diagnosed by tests to evaluate something else. For example, you may have had a colonoscopy to screen for colon cancer when the diverticulosis was found. Most people with diverticulosis do not have any discomfort or problems. If symptoms develop, they may include mild cramps, bloating, and constipation. A complication of this condition is called diverticulitis. This is when the diverticulum become inflamed and infected. How to treat diverticulosis: Increasing the amount of fiber in the diet may reduce symptoms of diverticulosis and prevent complications such as diverticulitis (infected diverticuli). Fiber keeps stool soft and lowers pressure inside the colon so that bowel contents can move through easily. You should eat 20 to 35 grams of fiber each day. The table below shows the amount of fiber in some foods that you can easily add to your diet. Adding fiber slowly may decrease the bloating and fullness sometimes felt with an immediate high fiber diet. The doctor may also recommend taking a fiber product such as Citrucel or Metamucil once a day. In the past people with diverticulosis were to avoid nuts, corn, and seeds. This has not been found to be true. If you find that certain foods create cramping or bloating, avoid that food. Foods high in fiber include: Fresh fruits, fresh vegetables, legumes (beans), whole wheat bread, bran muffins or cereal, and nuts. See the table below for examples of high fiber foods. Remember, your goal is 20-35 grams per day. Amount of fiber in different foods Food Serving Grams of fiber Fruits Apple (with skin) 1 medium apple 4.4 Banana 1 medium banana 3.1 Oranges 1 orange 3.1 Prunes 1 cup, pitted 12.4 Juices Apple, unsweetened, w/added ascorbic acid 1 cup 0.5 Grapefruit, white, canned, sweetened 1 cup 0.2 Grape, unsweetened, w/added ascorbic acid 1 cup 0.5 Mcnabb 1 cup 0.7 Vegetables Cooked Green beans 1 cup 4.0 Carrots 1/2 cup sliced 2.3 Peas 1 cup 8.8 Potato (baked, with skin) 1 medium potato 3.8 Raw [place] (with peel) 1 cucumber 1.5 Lettuce 1 cup shredded 0.5 Tomato 1 medium tomato 1.5 Spinach 1 cup 0.7 Legumes Baked beans, canned, no salt added 1 cup 13.9 Kidney beans, canned 1 cup 13.6 Haas beans, canned 1 cup 11.6 Lentils, boiled 1 cup 15.6 Breads, pastas, flours Bran muffins 1 medium muffin 5.2 Oatmeal, cooked 1 cup 4.0 White bread 1 slice 0.6 Whole-wheat bread 1 slice 1.9 Pasta and rice, cooked Macaroni 1 cup 2.5 Rice, brown 1 cup 3.5 Rice, white 1 cup 0.6 Spaghetti (regular) 1 cup 2.5 Nuts Almonds 1/2 cup 8.7 Peanuts 1/2 cup 7.9 Chart from UpToDate 2013. SEEK IMMEDIATE MEDIC (more content not included)... Normal [facility] Progress Note-Physicianon Progress Note-Physician Patient: Denice ESPINO Age: 78 years Sex: Female : 1945 Associated Diagnoses: None Author: Darius Nelson Jr., DO Postoperative Information Postoperative disposition: Postoperative disposition: Home. Optimetrix number: Optimetrix number [id number]. Anesthetic utilized: General. Physical Examination Vital Signs 07/10/2023 11:10 EDT Heart Rate Monitored 80 bpm Respiratory Rate Monitored 12 br/min Systolic Blood Pressure 119 mmHg Diastolic Blood Pressure 76 mmHg SpO2 98 % 07/10/2023 11:05 EDT Heart Rate Monitored 73 bpm Respiratory Rate Monitored 13 br/min Systolic Blood Pressure 106 mmHg Diastolic Blood Pressure 66 mmHg SpO2 96 % 07/10/2023 11:00 EDT Heart Rate Monitored 76 bpm Respiratory Rate Monitored 13 br/min Systolic Blood Pressure 98 mmHg Diastolic Blood Pressure 54 mmHg LOW SpO2 95 % 07/10/2023 10:55 EDT Temperature Temporal Artery 36.4 DegC Heart Rate Monitored 80 bpm Respiratory Rate Monitored 14 br/min Systolic Blood Pressure 98 mmHg Diastolic Blood Pressure 54 mmHg LOW SpO2 96 % Pain Assessment: Controlled. General: Awake, Alert, Appropriate. Respiratory: Adequate air exchange, Non-labored. Cardiovascular: Stable, Normal peripheral perfusion. Neurological: Neurologic exam at baseline. No changes.. Assessment Anesthetic outcome No anesthetic complications noted. No nausea/vomiting. Review / Management Condition: Stable. Plan Transfer/Discharge: Transfer/Discharge Discharge when meets criteria ( From PACU to Ambulatory Surgery Unit, and To home ). [facility] Comment on above: Result Comment: Elec tronically Signed By: Darius Nelson Jr., DO\.br\Date and Time Signed: 07/10/23 11:35 EDT Progress Note-Physician Patient: Denice ESPINO Age: 78 years Sex: Female : 1945 Associated Diagnoses: None Author: Darius Nelson Jr., DO Preoperative Information Anesthesia history: Patient history: No prior anesthetic problems. Informed consent: Signed by patient. Re-evaluation prior to induction: Initial evaluation reviewed: No significant change. Review of Systems Respiratory: Negative except as documented in history of present illness. Cardiovascular: Negative except as documented in history of present illness. Health Status Allergies: Allergic Reactions (Selected) Severity Not Documented Amoxicillin- Hives., Allergies (1) Active Severity Reaction amoxicillin Hives Current medications: (Selected) Inpatient Medications Ordered Lactated Ringers IV Leilani 1000 mL 1,000 mL: 1,000 mL, IV, 100 mL/hr, Routine, Start date 07/10/23 8:50:00 EDT, 10 hour(s), Total volume (mL): 1,000, 50.6 kg, 1.49, m2 Sodium Chloride 0.9% IV Leilani 1000 mL 1,000 mL: 1,000 mL, IV, 20 mL/hr, Routine, Start date 07/10/23 6:47:00 EDT, 50 hour(s), Total volume (mL): 1,000 Prescriptions Prescribed Citrucel 2 g/19 g oral powder: 2 gm, Oral, BID, # 507 gm, Refills(s) 3, Pharmacy: [facility]/pharmacy #[id number], 159, cm, 05/27/23 12:05:00 EST, Height/Length Dosing, 50.6, kg, 05/27/23 12:05:00 EST, Weight Dosing Questran 4 g/9 g oral powder: = 1 packet(s), Oral, Daily, PRN Diarrhea, # 30 EA, Refills(s) 4, Pharmacy: [facility]/pharmacy #[id number], 159, cm, 05/27/23 12:05:00 EST, Height/Length Dosing, 50.6, kg, 05/27/23 12:05:00 EST, Weight Dosing Documented Medications Documented Centrum Women's: 1 tab(s), Oral, Daily, Refill(s) 0, Prophylaxis aspirin 81 mg oral capsule: mg cap(s), Oral, q24hr, Refills(s) 0, Blood Thinner calcium (as carbonate) 600 mg oral tablet: mg tab(s), Oral, Daily, Refills(s) 0, Indigestion losartan 25 mg Tab: mg tab(s), Oral, Daily, Refills(s) 0, High blood pressure, Home Medications (6) Active aspirin 81 mg oral capsule , Oral, q24hr calcium (as carbonate) 600 mg oral tablet , Oral, Daily Centrum Women's 1 tab(s), Oral, Daily Citrucel 2 g/19 g oral powder 2 gm, Oral, BID losartan 25 mg Tab , Oral, Daily Questran 4 g/9 g oral powder 1 packet(s), PRN, Oral, Daily , Medications (2) Active Scheduled: (0) Continuous: (2) Lactated Ringers 1,000 mL 1,000 mL, IV, 100 mL/hr Sodium Chloride 0.9% 1,000 mL 1,000 mL, IV, 20 mL/hr PRN: (0) Problem list: No problem items selected or recorded. Histories Past Medical History: No active or resolved past medical history items have been selected or recorded. Procedure history: Hiatal hernia ([id number]) on 03/25/2021 at 76 Years. Colonoscopy ([id number]) on 03/25/2017 at 72 Years. Elbow ([id number]) on 03/25/2013 at 68 Years. Gallbladder ([id number]) on 08/23/1997 at 52 Years. Tonsil ([id number]). Social History Social & Psychosocial Habits Tobacco 05/27/2023 Tobacco Use: Never (less than 100 in l . Physical Examination Vital Signs 07/10/2023 8:49 EDT Temperature Temporal Artery 36.4 DegC Heart Rate Monitored 93 bpm Respiratory Rate Monitored 35 br/min Systolic Blood Pressure 154 mmHg HI Diastolic Blood Pressure 76 mmHg Blood Pressure Location Left arm SpO2 97 % Measurements from flowsheet : Measurements 07/10/2023 8:44 EDT Height/Length Measured 159 cm Height/Length Dosing 159.0 cm Weight Dosing 50.6 kg BSA Measured 1.49 m2 Body Mass Index Measured 20.02 kg/m2 Weight Measured 50.6 kg Airway: Mallampati classification: II (soft palate, fauces, uvula visible). Respiratory: Lungs are clear to auscultation, Respirations are non-labored. Cardiovascular: Regular rhythm. Plan [place] [employer]esthes[employer] (ASA) physical status classification: Class III. Anesthetic Preoperative Plan: Anesthesia General, and -TIVA. Normal [facility] Comment on above: Result Comment: Elec tronically Signed By: Darius Nelson Jr., DO\.yady\Date and Time Signed: 07/10/23 08:51 EDT Lab Reportson 07-08-2023 Lab Reports [id number] .00TIFF [facility] Lab Reports [id number] .00TIFF [facility] Lab Reports [id number] .00TIFF [facility] Lab Reports [id number] .00TIFF [facility] Giardia lamblia Ag [Presence ] in Stool by Immunoassayon 06-28-2023 G. lamblia Ag IA Ql (Stl) Negative Negative [facility] Comment on above: Performed at: [employer] [address] [id number] Director: Quique Yee PhD, Phone: [phone] No Panel Informationon 06-27 Clostridium difficile (PCR)(LAB) Negative NEGATIVE [facility] Rotavirus Antigen (LAB) Negative Negative [facility] Comment on above: Performed at: [employer] [address] [id number] Director: Quique Yee PhD, Phone: [phone] Alanine aminotransferase [En zymatic activity/volume] in Serum or PlasmaOrdered By: Nida Crain on 06-12-2023 ALT [Catalytic activity/Vol] 14 U/L 7-52 [facility] Albumin [Mass/volume] in Ser um or Plasma by Bromocresol green (BCG) dye binding methoOrdered By: Nida Crain on 06-12-2023 Albumin BCG dye [Mass/Vol] 4.3 g/dL 3.5-5.7 [facility] Alkaline phosphatase [Enzyma tic activity/volume] in Serum or PlasmaOrdered By: Nida Crain on 06-12-2023 ALP [Catalytic activity/Vol] 71 U/L 34-104 [facility] Anisocytosis LM Ql (Bld)Orde red By: Nida Crain on 06-12-2023 Anisocytosis Ql (Bld) Slight Fir [facility] Aspartate aminotransferase [ Enzymatic activity/volume] in Serum or PlasmaOrdered By: Nida Crain on 06-12-2023 AST [Catalytic activity/Vol] 20 U/L 13-39 [facility] Basophils Auto (Bld) [#/Vol] Ordered By: Nida Crain on 06-12-2023 Basophils (Bld) [#/Vol] N/A F [facility] Basophils/100 WBC Auto (Bld) Ordered By: Nida Crain on 06-12-2023 Basophils/100 WBC (Bld) N/A F [facility] Bilirubin.total [Mass/volume ] in Serum or PlasmaOrdered By: Nida Crain on 06-12-2023 Bilirubin [Mass/Vol] 0.4 mg/dL 0.3-1.0 [facility] Calcium [Mass/volume] in Ser um or PlasmaOrdered By: Nida Crain on 06-12-2023 Calcium [Mass/Vol] 9.5 mg/dL 8.6-10.3 [facility] Carbon dioxide, total [Moles /volume] in Serum or PlasmaOrdered By: Nida Crain on 06-12-2023 CO2 [Moles/Vol] 28.3 mmol/L 21.0-31.0 [facility] Chloride [Moles/volume] in S filemon or PlasmaOrdered By: Nida Crain on 06-12-2023 Chloride [Moles/Vol] 101 mmol/L 98-107 [facility] Comprehensive Metabolic Pane sandi 06-12-2023 Albumin [Mass/Vol] 4.3 g/dL Normal 3.5-5.7 [facility] Comment on above: Performed By: #### D IFF CBC, CMP, LDH #### [facility] [address] Albumin/Globulin [Mass ratio] 2.3 {ratio} Normal [facility] Comment on above: Performed By: #### D IFF CBC, CMP, LDH #### [facility] [address] ALP [Catalytic activity/Vol] 71 U/L Normal 34-104 [facility] Comment on above: Performed By: #### D IFF CBC, CMP, LDH #### [facility] [address] ALT [Catalytic activity/Vol] 14 U/L Normal 7-52 [facility] Comment on above: Performed By: #### D IFF CBC, CMP, LDH #### [facility] [address] Anion gap [Moles/Vol] 14.1 mmol/L Normal 6.0-15.0 [facility] Comment on above: Performed By: #### D IFF CBC, CMP, LDH #### [place] [address] [place] AST [Catalytic activity/Vol] 20 U/L Normal 13-39 [facility] Comment on above: Performed By: #### D IFF CBC, CMP, LDH #### [facility] [address] [place] [address] [place] Bilirubin [Mass/Vol] 0.4 mg/dL Normal 0.3-1.0 [facility] Comment on above: Performed By: #### D IFF CBC, CMP, LDH #### [facility] [address] [place] [address] [place] Calcium [Mass/Vol] 9.5 mg/dL Normal 8.6-10.3 [facility] Comment on above: Performed By: #### D IFF CBC, CMP, LDH #### [facility] [address] [place] [address] [place] Chloride [Moles/Vol] 101 mmol/L Normal 98-107 [facility] Comment on above: Performed By: #### D IFF CBC, CMP, LDH #### [facility] [address] CO2 [Moles/Vol] 28.3 mmol/L Normal 21.0-31.0 [facility] Comment on above: Performed By: #### D IFF CBC, CMP, LDH #### [facility] [address] Creatinine [Mass/Vol] 0.87 mg/dL Normal 0.60-1.20 [facility] Comment on above: Performed By: #### D IFF CBC, CMP, LDH #### [facility] [address] Creatinine Clr Calc Pharmacy 43.51 [facility] Comment on above: Performed By: #### D IFF CBC, CMP, LDH #### [facility] [address] [place] [address] [place] GFR/1.73 sq M.predicted MDRD (S/P/Bld) [Vol rate/Area] mL/min/{1.73_m2} [facility] Comment on above: Performed By: #### D IFF CBC, CMP, LDH #### [facility] [address] Globulin (S) [Mass/Vol] 1.9 g/dL Normal [facility] Comment on above: Performed By: #### D IFF CBC, CMP, LDH #### [facility] [address] [place] [address] [place] Glucose [Mass/Vol] 122 mg/dL High 70-100 [facility] Comment on above: Result Comment: [place] Glucose Reference Range is dependent on time and content of last meal. Glucose of more than 200 mg/dL in a nonstressed, ambulatory subject supports the diagnosis of Diabetes Mellitus. ADA recommended reference range Performed By: #### D IFF CBC, CMP, LDH #### [facility] [address] [place] [address] Potassium [Moles/Vol] 4.4 mmol/L Normal 3.5-5.1 [facility] Comment on above: Performed By: #### D IFF CBC, CMP, LDH #### [facility] [address] [place] [address] [place] Protein [Mass/Vol] 6.2 g/dL Low 6.4-8.9 [facility] Comment on above: Performed By: #### D IFF CBC, CMP, LDH #### [address] Sodium [Moles/Vol] 139 mmol/L Normal 136-145 [facility] Comment on above: Performed By: #### D IFF CBC, CMP, LDH #### [address] Urea nitrogen [Mass/Vol] 20 mg/dL Normal 7-25 [facility] Comment on above: Performed By: #### D IFF CBC, CMP, LDH #### [place] [address] [place] Creatinine [Mass/volume] in Serum or PlasmaOrdered By: Nida Crain on 06-12-2023 Creatinine [Mass/Vol] 0.87 mg/dL 0.60-1.20 [facility] Diff and CBCon 06-12-2023 Anisocytosis Ql (Bld) Slight Normal [facility] Comment on above: Performed By: #### D IFF CBC, CMP, LDH #### [place] [address] [place] Eosinophils/100 WBC (Bld) 1 % Normal 1-3 [facility] Comment on above: Performed By: #### D IFF CBC, CMP, LDH #### [place] [address] [place] Erythrocyte distribution width (RBC) [Ratio] 13.2 % Normal 11.9-15.3 [facility] Comment on above: Performed By: #### D IFF CBC, CMP, LDH #### [address] [place] [address] [place] Giant Platelet Tally 1 /100{WBC} Normal [facility] Comment on above: Performed By: #### D IFF CBC, CMP, LDH #### [address] Hematocrit (Bld) [Volume fraction] 43.6 % Normal 34.0-46.4 [facility] Comment on above: Performed By: #### D IFF CBC, CMP, LDH #### [address] Hemoglobin (Bld) [Mass/Vol] 14.2 g/dL Normal 11.8-15.4 [facility] Comment on above: Performed By: #### D IFF CBC, CMP, LDH #### [address] Lymphocytes/100 WBC (Bld) 78 % High 18-42 [facility] Comment on above: Performed By: #### D IFF CBC, CMP, LDH #### [address] MCH (RBC) [Entitic mass] 29.7 pg Normal 24.7-34.3 [facility] Comment on above: Performed By: #### D IFF CBC, CMP, LDH #### [address] MCV (RBC) [Entitic vol] 91.0 fL Normal 80-[address] [facility] Comment on above: Performed By: #### D IFF CBC, CMP, LDH #### [address] Mean Corpuscular HGB Conc 32.6 g/dL Normal 32.0-35.0 [facility] Comment on above: Performed By: #### D IFF CBC, CMP, LDH #### [address] Microcytosis Slight Normal [facility] Comment on above: Performed By: #### D IFF CBC, CMP, LDH #### [place] [address] [place] Monocytes/100 WBC (Bld) 1 % Low 2-[address] [facility] Comment on above: Performed By: #### D IFF CBC, CMP, LDH #### [facility] [address] Platelet Estimate Normal Normal Normal [facility] Comment on above: Performed By: #### D IFF CBC, CMP, LDH #### [facility] [address] Platelet mean volume (Bld) [Entitic vol] 9.5 fL Normal 6.3-10.7 [facility] Comment on above: Performed By: #### D IFF CBC, CMP, LDH #### [facility] [address] Platelet Morphology Normal Normal Normal [facility] Comment on above: Result Comment: PERF ORMED BY: [place] [address] PATHOLOGIST [employer] SALES ATTENDANT TOMAS LUCIA M.D. Performed By: #### D IFF CBC, CMP, LDH #### [facility] [address] Platelets (Bld) [#/Vol] 270 10*3/uL Normal 150-450 [facility] Comment on above: Performed By: #### D IFF CBC, CMP, LDH #### [facility] [address] RBC (Bld) [#/Vol] 4.79 10*6/uL Normal 3.60-5.00 [facility] Comment on above: Performed By: #### D IFF CBC, CMP, LDH #### [facility] [address] RBC morphology finding Nom (Bld) Normal Normal Normal [facility] Comment on above: Performed By: #### D IFF CBC, CMP, LDH #### [facility] [address] Reactive Lymphocytes 1 % Normal 0-12 [facility] Comment on above: Performed By: #### D IFF CBC, CMP, LDH #### [facility] [address] [place] [address] [place] Segmented neutrophils/100 WBC (Bld) 19 % Low 50-70 [facility] Comment on above: Performed By: #### D IFF CBC, CMP, LDH #### [facility] [address] [place] [address] [place] WBC (Bld) [#/Vol] 16.8 10*3/uL High 3.8-11.6 [facility] Comment on above: Performed By: #### D IFF CBC, CMP, LDH #### [facility] [address] Eosinophils Auto (Bld) [#/Vo l]Ordered By: Nida Crain on 06-12-2023 Eosinophils (Bld) [#/Vol] N/A [facility] Eosinophils/100 WBC Auto (Bl d)Ordered By: Nida Crain on 06-12-2023 Eosinophils/100 WBC (Bld) N/A [facility] Eosinophils/100 WBC Manual c nt (Bld)Ordered By: Nida Crain on 06-12-2023 Eosinophils/100 WBC (Bld) 1 % 1-3 [facility] Erythrocyte distribution wid th Auto (RBC) [Ratio]Ordered By: Nida Crain on 06-12-2023 Erythrocyte distribution width (RBC) [Ratio] 13.2 % 11.9-15.3 [facility] Giant platelets/100 leukocyt es [Ratio] in Blood by Manual countOrdered By: Nida Crain on 06-12-2023 Giant platelets/100 WBC Manual cnt (Bld) [Ratio] 1 /100{WBC} [facility] Globulin Calc (S) [Mass/Vol] Ordered By: Nida Crain on 06-12-2023 Globulin (S) [Mass/Vol] 1.9 g/dL [facility] Glucose [Mass/volume] in Ser um or PlasmaOrdered By: Nida Crain on 06-12-2023 Glucose [Mass/Vol] 122 mg/dL 70-100 [facility] Comment on above: ADA recommended refe rence rangeRandom Glucose Reference Range is dependent on time and content of last meal. Glucose of more than 200 mg/dL in a nonstressed, ambulatory subject supports the diagnosis of Diabetes Mellitus. Hematocrit Auto (Bld) [Volum e fraction]Ordered By: Nida Crain on 06-12-2023 Hematocrit (Bld) [Volume fraction] 43.6 % 34.0-46.4 [facility] Hemoglobin [Mass/volume] in BloodOrdered By: Nida Crain on 06-12-2023 Hemoglobin (Bld) [Mass/Vol] 14.2 g/dL 11.8-15.4 [facility] LDH Lactate Dehydrogenaseon 06-12-2023 LDH Lactate Dehydrogenase 144 U/L Normal 140-271 [facility] Comment on above: Result Comment: PERF ORMED BY: [place] [address] PATHOLOGIST [employer] SALES ATTENDANT TOMAS LUCIA M.D. Performed By: #### D IFF CBC, CMP, LDH #### [facility] [address] Lactate dehydrogenase [Enzym atic activity/volume] in Serum or Plasma by Lactate to pyOrdered By: Nida Crain on 06-12-2023 LDH Lactate to pyruvate reaction [Catalytic activity/Vol] 144 U/L 140-271 [facility] Leukocytes [#/volume] correc jose for nucleated erythrocytes in Blood by Automated counOrdered By: Niad Crain on 06-12-2023 WBC corrected for nucl RBC Auto (Bld) [#/Vol] 16.8 10*3/uL 3.8-11.6 [facility] Lymphocytes Auto (Bld) [#/Vo l]Ordered By: Nida Crain on 06-12-2023 Lymphocytes (Bld) [#/Vol] N/A [facility] Lymphocytes/100 WBC Auto (Bl d)Ordered By: Nida Crain on 06-12-2023 Lymphocytes/100 WBC (Bld) N/A [facility] Lymphocytes/100 WBC Manual c nt (Bld)Ordered By: Nida Crain on 06-12-2023 Lymphocytes/100 WBC (Bld) 78 % 18-42 [facility] MCH Auto (RBC) [Entitic mass ]Ordered By: Nida Crain on 06-12-2023 MCH (RBC) [Entitic mass] 29.7 pg 24.7-34.3 [facility] MCHC Auto (RBC) [Mass/Vol]Or dered By: Nida Crain on 06-12-2023 MCHC (RBC) [Mass/Vol] 32.6 g/dL 32.0-35.0 Fir [facility] MCV Auto (RBC) [Entitic vol] Ordered By: Nida Crain on 06-12-2023 MCV (RBC) [Entitic vol] 91.0 fL 80-[address] [facility] Microcytes LM Ql (Bld)Ordere d By: Nida Crain on 06-12-2023 Microcytes Ql (Bld) Slight [facility] Monocytes Auto (Bld) [#/Vol] Ordered By: Nida Crain on 06-12-2023 Monocytes (Bld) [#/Vol] N/A F [facility] Monocytes/100 WBC Auto (Bld) Ordered By: Nida Crain on 06-12-2023 Monocytes/100 WBC (Bld) N/A F [facility] Monocytes/100 WBC Manual cnt (Bld)Ordered By: Nida Crain on 06-12-2023 Monocytes/100 WBC (Bld) 1 % 2-[address] [facility] Neutrophils Auto (Bld) [#/Vo l]Ordered By: Nida Crain on 06-12-2023 Neutrophils (Bld) [#/Vol] N/A [facility] Neutrophils/100 WBC Auto (Bl d)Ordered By: Nida Crain on 06-12-2023 Neutrophils/100 WBC (Bld) N/A [facility] No Panel InformationOrdered By: Nida Crain on 06-12-2023 Estimated GFR (CKD-EPI) > 60.0 mL/Min [facility] Creatinine Clearance (Chem 43.51 [facility] Nucleated erythrocytes [Pres ence] in Blood by Automated countOrdered By: Nida Crain on 06-12-2023 Nucleated RBC Auto Ql (Bld) N/A [facility] Platelet adequacy [Presence] in Blood by Light microscopyOrdered By: Nida Crain on 06-12-2023 Platelets LM Ql (Bld) Normal Normal [facility] Platelet mean volume Auto (B ld) [Entitic vol]Ordered By: Nida Crain on 06-12-2023 Platelet mean volume (Bld) [Entitic vol] 9.5 fL 6.3-10.7 [facility] Platelet morphology finding [Identifier] in BloodOrdered By: Nida Crain on 06-12-2023 Platelet morphology finding Nom (Bld) Normal Normal [facility] Platelets Auto (Bld) [#/Vol] Ordered By: Nida Crain on 06-12-2023 Platelets (Bld) [#/Vol] 270 10*3/uL 150-450 [facility] Potassium [Moles/volume] in Serum or PlasmaOrdered By: Nida Crain on 06-12-2023 Potassium [Moles/Vol] 4.4 mmol/L 3.5-5.1 [facility] Protein [Mass/volume] in Ser um or PlasmaOrdered By: Nida Crain on 06-12-2023 Protein [Mass/Vol] 6.2 g/dL 6.4-8.9 [facility] RBC Auto (Bld) [#/Vol]Ordere d By: Nida Crain on 06-12-2023 RBC (Bld) [#/Vol] 4.79 10*6/uL 3.60-5.00 [facility] RBC morphologyOrdered By: Blanca Crain on 06-12-2023 RBC morphology finding Nom (Bld) Normal Normal [facility] Segmented neutrophils/100 WB C Manual cnt (Bld)Ordered By: Nida Crain on 06-12-2023 Segmented neutrophils/100 WBC (Bld) 19 % 50-70 [facility] Serum or plasma albumin/glob ulin mass ratioOrdered By: Niad Crain on 06-12-2023 Albumin/Globulin [Mass ratio] 2.3 {ratio} [facility] Serum or plasma anion gap de terminationOrdered By: Nida Crain on 06-12-2023 Anion gap [Moles/Vol] 14.1 mmol/L 6.0-15.0 [facility] Sodium [Moles/volume] in Ser um or PlasmaOrdered By: Nida Crain on 06-12-2023 Sodium [Moles/Vol] 139 mmol/L 136-145 [facility] Urea nitrogen [Mass/volume] in Serum or PlasmaOrdered By: Nida Crain on 06-12-2023 Urea nitrogen [Mass/Vol] 20 mg/dL 7-25 [facility] Variant lymphocytes/100 WBC Manual cnt (Bld)Ordered By: Nida Crain on 06-12-2023 Variant lymphocytes/100 WBC (Bld) 1 % 0-12 [facility] WBC Auto (Bld) [#/Vol]Ordere d By: Nida Crain on 06-12-2023 WBC (Bld) [#/Vol] 16.8 10*3/uL 3.8-11.6 [facility] Ambulatory Visit Summaryon 0 05-27-2023 Ambulatory Visit Summary MARITZA ESPINO Kenisha :1945 Visit Date:05/27/2023 Ambulatory Visit Instructions Your [...] needed for Diarrhea Refills: 4 Pickup at [facility]/pharmacy #[id number] New methylcellulose (Citrucel 2 g/ 19 g oral powder) 2 Gram By Mouth 2 times a day Refills: 3 Pickup at [facility]/pharmacy #[id number] Unchanged aspirin (aspirin 81 mg oral [...] physician if questions or concerns Pharmacy Information [facility]/pharmacy #[id number]: [address], [place] [id number] [phone] Allergies amoxicillin (Hives) Patient Survey You may receive a survey via text or e-mail asking about your office visit. Please share your experience with us by completing your survey. We appreciate your feedback and thank you for choosing us for your care. Normal [facility] Gastroenterology Office/Clin ic Noteon 05-27-2023 Gastroenterology [...] Diarrhea, # 30 EA, Refills(s) 4, Pharmacy: [facility]/pharmacy #[id number], 159, cm, 05/27/23 12:05:00 EST, Height/Length Dosing, 50.6, kg, 05/27/23 12:05:00 EST, Weight Dosing methylcellulose, 2 gm, Oral, BID, # 507 gm, Refills(s) 3, Pharmacy: [facility]/pharmacy #[id number], 159, cm, 05/27/23 12:05:00 EST, Height/Length Dosing, [...] virus vaccine, inactivated 12/25/2022 Recorded SARS-CoV-2 (COVID-19) [id number] 02/13/2022 Recorded influenza virus vaccine, inactivated 12/13/2021 [...] influenza virus vaccine, inactivated 01/21/2017 Recorded Normal [facility] Comment on above: Result Comment: Elec tronically Signed By: Qasim PORTER, Papito [email or web address]\Date and Time Signed: 05/27/23 12:34 EST Physician Referralon 024 Physician Referral [phone] [id number] Normal [facility] IMMUNOFIXATION ELEC, PROTEIN ELECon 07-09-2022 Albumin [Mass/Vol] 3.7 g/dL Normal 2.9-4.4 [facility] Comment on above: Performed By: #### V ITB12 #### [facility] [address] [place] [address] Dr. Mary Herzog Albumin/Globulin [Mass ratio] 1.5 {ratio} Normal 0.7-1.7 [facility] Comment on above: Performed By: #### V ITB12 #### [facility] [address] [address] [address] Mary Herzog Yojya-6-Jexyezkd 0.3 g/dL Normal 0.0-0.4 [facility] Comment on above: Performed By: #### V ITB12 #### [facility] [address] [address] [address] Mary Herzog Rjtja-1-Kvfqpgax 0.8 g/dL Normal 0.4-1.0 [facility] Comment on above: Performed By: #### V ITB12 #### [facility] [address] [address] [address] Mary Herzog Beta Globulin 0.9 g/dL Normal 0.7-1.3 [facility] Comment on above: Performed By: #### V ITB12 #### [facility] [address] [address] [address] Mary Herzog Gamma Globulin 0.6 g/dL Normal 0.4-1.8 [facility] Comment on above: Performed By: #### V ITB12 #### [facility] [address] [place] [address] Dr. Mary Herzog Globulin (S) [Mass/Vol] 2.6 g/dL Normal 2.2-3.9 [facility] Comment on above: Performed By: #### V ITB12 #### [facility] [address] [place] [address] Dr. Mary Herzog Immunofixation Result, Serum Comment Normal [facility] Comment on above: Result Comment: No m onoclonality detected. Performed By: #### V ITB12 #### [facility] [address] [place] [address] Dr. Mary Herzog Immunoglobulin A, Qn, Serum 102 mg/dL Normal 64-422 [facility] Comment on above: Performed By: #### V ITB12 #### [facility] [address] [place] [address] Dr. Mary Herzog Immunoglobulin G, Qn, Serum 635 mg/dL Normal 586-1602 [facility] Comment on above: Performed By: #### V ITB12 #### [facility] [address] [place] [address] Dr. Mary Herzog Immunoglobulin M, Qn, Serum 125 mg/dL Normal 26-217 [facility] Comment on above: Performed By: #### V ITB12 #### [facility] [address] [place] [address] Dr. Mary Herzog M-Nilesh Not Observed Normal Not Observed [facility] Comment on above: Performed By: #### V ITB12 #### [facility] [address] [place] [address] Dr. Mary Herzog PDF . Normal [facility] Comment on above: Performed By: #### V ITB12 #### [facility] [address] [place] [address] Dr. Mary Herzog Please note: Comment Normal [facility] Comment on above: Result Comment: Prot ein electrophoresis scan will follow via computer, mail, or white sidewall tire buffer delivery. Performed By: #### V ITB12 #### [facility] [address] [place] [address] Dr. Mary Herzog Protein [Mass/Vol] 6.3 g/dL Normal 6.0-8.5 [facility] Comment on above: Performed By: #### V ITB12 #### [facility] [address] [place] [address] Dr. Mary Herzog VITAMIN B6on 07-09-2022 Vitamin B6 29.2 ug/L Normal 3.4-65.2 [facility] Comment on above: Result Comment: Defi ciency: <3.4 Marginal: 3.4 - 5.1 Adequate: >5.1 Performed By: #### V ITAB6 #### [facility] [address] [place] [address] Dr. Mary Herzog COPPER, SERUM or PLASMAon Copper, Serum 136 ug/dL Normal 80-158 [facility] Comment on above: Result Comment: Dete ction Limit = 5 Performed By: #### V ITB12 #### [facility] [address] [place] [address] Dr. Mary Herzog [place] COMPREHENSIVE PROFILEon 07-07-2022 Anti-Centromere B Antibodies <0.2 Normal 0.0-0.9 [facility] Comment on above: Performed By: #### V ITB12 #### [facility] [address] [place] [address] Dr. Mary Herzog Anti-DNA (DS) Ab Qn 1 IU/mL Normal 0-9 [facility] Comment on above: Result Comment: Nega tive <5 Equivocal 5 - 9 Positive >9 Performed By: #### V ITB12 #### [facility] [address] [place] [address] Dr. Mary Herzog Anti-Mary-1 <0.2 Normal 0.0-0.9 [facility] Comment on above: Performed By: #### V ITB12 #### [facility] [address] [place] [address] Dr. Mary Herzog Antichromatin Antibodies <0.2 Normal 0.0-0.9 [facility] Comment on above: Performed By: #### V ITB12 #### [facility] [address] [address] [address] Mary Herzog ANTIRIBOSOMAL P AB <0.2 Normal 0.0-0.9 [facility] Comment on above: Performed By: #### V ITB12 #### [facility] [address] [address] [address] Mary Herzog Antiscleroderma-70 Antibodies <0.2 Normal 0.0-0.9 [facility] Comment on above: Performed By: #### V ITB12 #### [facility] [address] [address] [address] Mary Herzog COMMENT Comment Normal [facility] Comment on above: Result Comment: Auto antibody Disease Association Condition Frequency Antinuclear Antibody, SLE, mixed connective Direct (MO-D) tissue diseases dsDNA SLE 40 - 60% Chromatin Drug induced SLE 90% SLE 48 - 97% SSA (Ro) SLE 25 - 35% Sjogren's Syndrome 40 - 70% Lupus 100% SSB (La) SLE 10% Sjogren's Syndrome 30% Sm (anti-Carlson) SLE 15 - 30% BUSINESS ACCOUNT MANAGER Mixed Connective Tissue Disease 95% (U1 nRNP, SLE 30 - 50% anti-ribonucleoprotein) Polymyositis and/or Dermatomyositis 20% Scl-70 (antiDNA Scleroderma (diffuse) 20 - 35% topoisomerase) Crest 13% Mary-1 Polymyositis and/or Dermatomyositis 20 - 40% Centromere B Scleroderma - Crest variant 80% Ribosomal P SLE 10 - 20% Performed By: #### V ITB12 #### [facility] [address] [place] [address] Dr. Mary Herzog BUSINESS ACCOUNT MANAGER Antibodies 0.2 AI Normal 0.0-0.9 [facility] Comment on above: Performed By: #### V ITB12 #### [facility] [address] [place] [address] Dr. Mary Herzog Sjogren's Anti-SS-A <0.2 Normal 0.0-0.9 [facility] Comment on above: Performed By: #### V ITB12 #### [facility] [address] [place] [address] Dr. Mary Herzog Sjogrmodesta'jodi Anti-SS-B <0.2 Normal 0.0-0.9 [facility] Comment on above: Performed By: #### V ITB12 #### [facility] [address] [place] [address] Dr. Mary Herzog Carlson Antibodies <0.2 Normal 0.0-0.9 [facility] Comment on above: Performed By: #### V ITB12 #### [facility] [address] [place] [address] Dr. Mary Herzog Carlson/BUSINESS ACCOUNT MANAGER Antibodies <0.2 Normal 0.0-0.9 [facility] Comment on above: Performed By: #### V ITB12 #### [facility] [address] [place] [address] Dr. Mary Herzog CBC W MANUAL DIFFon 07-07-19 23 ATYPICAL LYMPH # Normal [facility] Comment on above: Performed By: #### C MARCELINOMAN #### [facility] [address] [place] [address] Dr. Mary Herzog ATYPICAL LYMPH % Normal [facility] Comment on above: Performed By: #### C BRODY #### [facility] [address] [place] [address] Dr. Mary AUSTIN # Normal 0.0-0.3 [facility] Comment on above: Performed By: #### Chip SKINNER #### [facility] [address] [place] [address] Dr. Mary AUSTIN % Normal 0-5 [facility] Comment on above: Performed By: #### C BRODY #### [facility] [address] [place] [address] Dr. Mary Herzog BASOM # 0.00 103/ul Normal 0.00-0.10 [facility] Comment on above: Performed By: #### C BCCORY #### [facility] [address] [place] [address] Dr. Mary Herzog BASOM % 0.0 % Critically low 0.2-2.0 [facility] Comment on above: Performed By: #### C BCCORY #### [facility] [address] [place] [address] Dr. Mary Herzog BLAST # Normal [facility] Comment on above: Performed By: #### C BRODY #### [facility] [address] [place] [address] Dr. Mary Herzog BLAST % Normal [facility] Comment on above: Performed By: #### C BRODY #### [facility] Laboratory [address] [place] [address] Dr. Mary Herzog CORRECTED WBC Normal 4.0-11.0 [facility] Comment on above: Performed By: #### C BRODY #### [facility] [address] [place] [address] Dr. Mary Herzog EOS # 0.49 103/ul Normal 0.00-0.70 [facility] Comment on above: Performed By: #### C BRODY #### [facility] [address] [place] [address] Dr. Mary Herzog EOS% 3.0 % Normal 0.9-7.0 [facility] Comment on above: Performed By: #### C BCCORY #### [facility] [address] [place] [address] Dr. Mary Herzog HCT 45.1 % Normal 36.0-48.0 [facility] Comment on above: Performed By: #### C BRODY #### [facility] [address] [place] [address] Dr. Mary Herzog HGB 14.5 g/dl Normal 12.0-16.0 [facility] Comment on above: Performed By: #### C RBODY #### [facility] [address] [place] [address] Dr. Mary Herzog LYMPHM # 10.89 103/ul Critically high 1.20-3.80 [facility] Comment on above: Performed By: #### C BRODY #### [facility] [address] [place] [address] Dr. Mary Herzog LYMPHM% 66.0 % Critically high 20.5-60.0 [facility] Comment on above: Performed By: #### C BRODY #### [facility] [address] [place] [address] Dr. Mary Herzog MCH 29.1 pg Normal 26.7-34.0 [facility] Comment on above: Performed By: #### C BRODY #### [facility] [address] [place] [address] Dr. Mary Herzog MCHC 32.2 g/dl Normal 29.9-35.2 [facility] Comment on above: Performed By: #### C BRODY #### [facility] [address] [place] [address] Dr. Mary Herzog MCV 90.4 fL Normal 81.0-99.0 [facility] Comment on above: Performed By: #### C BRODY #### [facility] [address] [place] [address] Dr. Mary Herzog METAMYELOCYTE # Normal [facility] Comment on above: Performed By: #### C BRODY #### [facility] [address] [place] [address] Dr. Mary Herzog METAMYELOCYTE % Normal [facility] Comment on above: Performed By: #### C BRODY #### [facility] [address] [place] [address] Dr. Mary Herzog MONOM# 0.82 103/ul Critically high 0.30-0.80 [facility] Comment on above: Performed By: #### C BRODY #### [facility] [address] [place] [address] Dr. Mary Herzog MONOM% 5.0 % Normal 1.7-12.0 [facility] Comment on above: Performed By: #### C BRODY #### [facility] [address] [place] [address] Dr. Mary Herzog MPV 10.6 fL Normal 9.5-13.5 [facility] Comment on above: Performed By: #### C RBODY #### [facility] [address] [place] [address] Dr. Mary Herzog MYELOCYTE # Normal [facility] Comment on above: Performed By: #### Chip SKINNER #### [facility] [address] [place] [address] Dr. Mary Herzog MYELOCYTE % Normal [facility] Comment on above: Performed By: #### Chip SKINNER #### [facility] [address] [place] [address] Dr. Mary Herzog NRBC Normal [facility] Comment on above: Performed By: #### Chip SKINNER #### [facility] [address] [place] [address] Dr. Mary Herzog PLT 277 103/ul Normal 150-450 [facility] Comment on above: Performed By: #### C BRODY #### [facility] [address] [place] [address] Dr. Mary Herzog RBC 4.99 106/ul Normal 4.20-5.40 [facility] Comment on above: Performed By: #### C BRODY #### [facility] [address] [place] [address] Dr. Mary Herzog RDW 12.9 % Normal 11.0-15.0 [facility] Comment on above: Performed By: #### C BRODY #### [facility] [address] [place] [address] Dr. Mary Herzog SEG # 4.29 103/ul Normal 1.40-6.50 [facility] Comment on above: Performed By: #### C BRODY #### [facility] [address] [place] [address] Dr. Mary Herzog SEG % 26.0 % Critically low 43.0-75.0 [facility] Comment on above: Performed By: #### C BRODY #### [facility] [address] [address] [address] Mary Herzog WBC 16.5 103/ul Critically high 4.0-11.0 [facility] Comment on above: Performed By: #### C BRODY #### [facility] [address] [address] [address] Mary Herzog GLYCOHEMOGLOBIN A1Con 2022 ADA RECOMMENDATION SEE BELOW Normal [facility] Comment on above: Result Comment: ADA RECOMMENDED LIMIT 4.0 - 6.0 ADA THERAPEUTIC TARGET < 7.0 ACTION SUGGESTED > 7.0 Performed By: #### D ATA1C #### [facility] [address] [place] [address] Dr. Mary Herzog Glucose [Mass/Vol] 117 mg/dL Normal [facility] Comment on above: Performed By: #### D ATA1C #### [facility] [address] [place] [address] Dr. Mary Herzog HbA1c (Bld) [Mass fraction] 5.7 % Normal 4.5-6.2 [facility] Comment on above: Performed By: #### D ATA1C #### [facility] [address] [place] [address] Dr. Mary Herzog PROF 14(COMP METB)on 023 Albumin [Mass/Vol] 3.7 g/dL Normal 3.4-5.0 [facility] Comment on above: Performed By: #### C MP, TSH #### [facility] [address] [address] [address] Mary Herzog Albumin/Globulin [Mass ratio] 1.1 {ratio} Normal [facility] Comment on above: Performed By: #### C MP, TSH #### [facility] [address] [address] [address] Mary Herzog ALP [Catalytic activity/Vol] 80 U/L Normal 46-116 [facility] Comment on above: Performed By: #### C MP, TSH #### [facility] [address] [address] [address] Mary Herzog ALT [Catalytic activity/Vol] 24 U/L Normal 14-59 [facility] Comment on above: Performed By: #### C MP, TSH #### [facility] [address] [address] [address] Mary Herzog Anion gap [Moles/Vol] 12.6 mmol/L Normal [facility] Comment on above: Performed By: #### C MP, TSH #### [facility] [address] [address] [address] Mary Herzog AST [Catalytic activity/Vol] 21 U/L Normal 15-37 [facility] Comment on above: Performed By: #### C MP, TSH #### [facility] [address] [address] [address] Mary Herzog Bilirubin [Mass/Vol] 0.5 mg/dL Normal 0.2-1.0 [facility] Comment on above: Performed By: #### C MP, TSH #### [facility] [address] [address] [address] Mary Herzog Calcium [Mass/Vol] 9.4 mg/dL Normal 8.5-10.1 [facility] Comment on above: Performed By: #### C MP, TSH #### [facility] [address] [address] [address] Mary Herzog Chloride [Moles/Vol] 104 mmol/L Normal 98-107 [facility] Comment on above: Performed By: #### C MP, TSH #### [facility] [address] [address] [address] Mary Herzog CO2 [Moles/Vol] 29.5 mmol/L Normal 21.0-32.0 [facility] Comment on above: Performed By: #### C MP, TSH #### [facility] [address] [address] [address] Mary Herzog Creatinine [Mass/Vol] 1.03 mg/dL Critically high 0.55-1.02 [facility] Comment on above: Performed By: #### C MP, TSH #### [facility] [address] [address] [address] Mary Herzog EGFR-AF [place] >60 Normal >=60 [facility] Comment on above: Performed By: #### C MP, TSH #### [facility] [address] [address] [address] Mary Herzog EGFR-NON AF [place] 52 mL/min/1.73m2 Critically low >=60 [facility] Comment on above: Performed By: #### C MP, TSH #### [facility] [address] [address] [address] Mary Herzog Globulin (S) [Mass/Vol] 3.4 g/dL Normal [facility] Comment on above: Performed By: #### C MP, TSH #### [facility] [address] [address] [address] Mary Herzog Glucose [Mass/Vol] 104 mg/dL Normal 74-106 [facility] Comment on above: Performed By: #### C MP, TSH #### [facility] [address] [address] [address] Mary Herzog Potassium [Moles/Vol] 4.1 mmol/L Normal 3.5-5.1 [facility] Comment on above: Performed By: #### C MP, TSH #### [facility] [address] [address] [address] Mary Herzog Protein [Mass/Vol] 7.1 g/dL Normal 6.4-8.2 [facility] Comment on above: Performed By: #### C MP, TSH #### [facility] [address] [address] [address] Mary Herzog Sodium [Moles/Vol] 142 mmol/L Normal 136-145 [facility] Comment on above: Performed By: #### C MP, TSH #### [facility] [address] [address] [address] Mary Herzog Urea nitrogen [Mass/Vol] 19.0 mg/dL Critically high 7.0-18 .0 [facility] Comment on above: Performed By: #### C MP, TSH #### [facility] [address] [address] [address] Mary Herzog Urea nitrogen/Creatinine [Mass ratio] 18.4 mg/mg Normal [facility] Comment on above: Performed By: #### C MP, TSH #### [facility] [address] [address] [address] Mary Herzog TSHon 07-06-2022 TSH 1.684 uIU/mL Normal 0.358-3.740 [facility] Comment on above: Performed By: #### C MP, TSH #### [facility] [address] [address] [address] Mary Herzog VITAMIN B12on 07-06-2022 Cobalamin (Vitamin B12) [Mass/Vol] 1021.0 pg/mL Critically high 193.0-986.0 [facility] Comment on above: Performed By: #### V ITB12 #### [facility] [address] [address] [address] Mary Herzog Comprehensive Metabolic Pane sandi 06-13-2022 Albumin [Mass/Vol] 4.4 g/dL Normal 3.5-5.7 [facility] Comment on above: Performed By: #### C MP, SCAN CBC, LDH #### [facility] [address] [place] [address] [place] Albumin/Globulin [Mass ratio] 2.1 {ratio} Normal [facility] Comment on above: Performed By: #### C MP, SCAN CBC, LDH #### [facility] [address] [id number] [place] ALP [Catalytic activity/Vol] 66 U/L Normal 34-104 [facility] Comment on above: Performed By: #### C MP, SCAN CBC, LDH #### [facility] [address] [id number] [place] ALT [Catalytic activity/Vol] 13 U/L Normal 7-52 [facility] Comment on above: Performed By: #### C MP, SCAN CBC, LDH #### [facility] [address] Anion gap [Moles/Vol] 11.0 mmol/L Normal 6.0-15.0 [facility] Comment on above: Performed By: #### C MP, SCAN CBC, LDH #### [facility] [address] AST [Catalytic activity/Vol] 20 U/L Normal 13-39 [facility] Comment on above: Performed By: #### C MP, SCAN CBC, LDH #### [facility] [address] Bilirubin [Mass/Vol] 0.4 mg/dL Normal 0.3-1.0 [facility] Comment on above: Performed By: #### C MP, SCAN CBC, LDH #### [facility] [address] Calcium [Mass/Vol] 9.6 mg/dL Normal 8.6-10.3 [facility] Comment on above: Performed By: #### C MP, SCAN CBC, LDH #### [facility] [address] Chloride [Moles/Vol] 101 mmol/L Normal 98-107 [facility] Comment on above: Performed By: #### C MP, SCAN CBC, LDH #### [facility] [address] [place] [address] [place] CO2 [Moles/Vol] 31.1 mmol/L High 21.0-31.0 [facility] Comment on above: Performed By: #### C MP, SCAN CBC, LDH #### [facility] [address] [place] [address] [place] Creatinine [Mass/Vol] 1.05 mg/dL Normal 0.60-1.20 [facility] Comment on above: Performed By: #### C MP, SCAN CBC, LDH #### [facility] [address] [place] [address] [place] Creatinine Clr Calc Pharmacy 41.79 Normal [facility] Comment on above: Performed By: #### C MP, SCAN CBC, LDH #### [facility] [address] GFR/1.73 sq M.predicted MDRD (S/P/Bld) [Vol rate/Area] 55.410 mL/min/{1.73_m2} Normal [facility] Comment on above: Performed By: #### C MP, SCAN CBC, LDH #### [facility] [address] Globulin (S) [Mass/Vol] 2.1 g/dL Normal [facility] Comment on above: Performed By: #### C MP, SCAN CBC, LDH #### [address] Glucose [Mass/Vol] 108 mg/dL Normal 74-109 [facility] Comment on above: Result Comment: [place] Glucose Reference Range is dependent on time and content of last meal. Glucose of more than 200 mg/dL in a nonstressed, ambulatory subject supports the diagnosis of Diabetes Mellitus. ADA recommended reference range Performed By: #### C MP, SCAN CBC, LDH #### [address] Potassium [Moles/Vol] 4.1 mmol/L Normal 3.5-5.1 [facility] Comment on above: Performed By: #### C MP, SCAN CBC, LDH #### [address] Protein [Mass/Vol] 6.5 g/dL Normal 6.4-8.9 [facility] Comment on above: Performed By: #### C MP, SCAN CBC, LDH #### [place] [address] [place] Sodium [Moles/Vol] 139 mmol/L Normal 136-145 [facility] Comment on above: Performed By: #### C MP, SCAN CBC, LDH #### [address] Urea nitrogen [Mass/Vol] 19 mg/dL Normal 7-25 [facility] Comment on above: Performed By: #### C MP, SCAN CBC, LDH #### [address] LDH Lactate Dehydrogenaseon 06-13-2022 LDH Lactate Dehydrogenase 150 U/L Normal 140-271 [facility] Comment on above: Result Comment: PERF ORMED BY: [place] [address] PATHOLOGIST [employer]END[employer] TOMAS LUCIA M.D. Performed By: #### C MP, SCAN CBC, LDH #### [facility] [address] [place] [address] Scan and CBCon 06-13-2022 Anisocytosis Ql (Bld) Slight Normal [facility] Comment on above: Performed By: #### C MP, SCAN CBC, LDH #### [address] Basophils (Bld) [#/Vol] 0.1 10*3/uL Normal 0.0-0.2 [facility] Comment on above: Performed By: #### C MP, SCAN CBC, LDH #### [address] Basophils/100 WBC (Bld) 0.6 % Normal . [facility] Comment on above: Performed By: #### C MP, SCAN CBC, LDH #### [address] Eosinophils (Bld) [#/Vol] 0.4 10*3/uL Normal 0.0-0.45 [facility] Comment on above: Performed By: #### C MP, SCAN CBC, LDH #### [address] Eosinophils/100 WBC (Bld) 2.2 % Normal . [facility] Comment on above: Performed By: #### C MP, SCAN CBC, LDH #### [facility] [address] [place] [address] Erythrocyte distribution width (RBC) [Ratio] 13.3 % Normal 11.9-15.3 [facility] Comment on above: Performed By: #### C MP, SCAN CBC, LDH #### [place] [address] [place] Hematocrit (Bld) [Volume fraction] 43.4 % Normal 34.0-46.4 [facility] Comment on above: Performed By: #### C MP, SCAN CBC, LDH #### [address] Hemoglobin (Bld) [Mass/Vol] 14.3 g/dL Normal 11.8-15.4 [facility] Comment on above: Performed By: #### C MP, SCAN CBC, LDH #### [address] Lymphocytes (Bld) [#/Vol] 12.4 10*3/uL High 1.00-4.8 [facility] Comment on above: Performed By: #### C MP, SCAN CBC, LDH #### [address] Lymphocytes/100 WBC (Bld) 67.2 % Normal . [facility] Comment on above: Performed By: #### C MP, SCAN CBC, LDH #### [address] MCH (RBC) [Entitic mass] 29.6 pg Normal 24.7-34.3 [facility] Comment on above: Performed By: #### C MP, SCAN CBC, LDH #### [address] MCV (RBC) [Entitic vol] 89.9 fL Normal 80-[address] [facility] Comment on above: Performed By: #### C MP, SCAN CBC, LDH #### [address] Mean Corpuscular HGB Conc 33.0 g/dL Normal 32.0-35.0 [facility] Comment on above: Performed By: #### C MP, SCAN CBC, LDH #### [address] Microcytosis Slight Normal [facility] Comment on above: Performed By: #### C MP, SCAN CBC, LDH #### [address] [place] [address] [place] Monocytes (Bld) [#/Vol] 0.8 10*3/uL Normal 0.0-0.8 [facility] Comment on above: Performed By: #### C MP, SCAN CBC, LDH #### [facility] [address] Monocytes/100 WBC (Bld) 4.6 % Normal . F [facility] Comment on above: Performed By: #### C MP, SCAN CBC, LDH #### [address] Neutrophils (Bld) [#/Vol] 4.7 10*3/uL Normal 1.8-7.7 [facility] Comment on above: Performed By: #### C MP, SCAN CBC, LDH #### [address] Neutrophils/100 WBC (Bld) 25.4 % Normal . [facility] Comment on above: Performed By: #### C MP, SCAN CBC, LDH #### [address] NRBC% 0.1 /100{WBC} Normal 0-0.5 [facility] Comment on above: Performed By: #### C MP, SCAN CBC, LDH #### [address] Platelet Estimate Normal Normal Normal [facility] Comment on above: Performed By: #### C MP, SCAN CBC, LDH #### [address] Platelet mean volume (Bld) [Entitic vol] 9.5 fL Normal 6.3-10.7 [facility] Comment on above: Performed By: #### C MP, SCAN CBC, LDH #### [address] Platelet Morphology Normal Normal Normal [facility] Comment on above: Result Comment: PERF ORMED BY: [place] [address] PATHOLOGIST [employer] ATTENDANT TOMAS LUCIA M.D. Performed By: #### C MP, SCAN CBC, LDH #### [facility] [address] Platelets (Bld) [#/Vol] 240 10*3/uL Normal 150-450 [facility] Comment on above: Performed By: #### C MP, SCAN CBC, LDH #### [address] RBC (Bld) [#/Vol] 4.83 10*6/uL Normal 3.60-5.00 [facility] Comment on above: Performed By: #### C MP, SCAN CBC, LDH #### [address] Smudge Cells Moderate Normal [facility] Comment on above: Performed By: #### C MP, SCAN CBC, LDH #### [address] WBC (Bld) [#/Vol] 18.4 10*3/uL High 3.8-11.6 [facility] Comment on above: Performed By: #### C MP, SCAN CBC, LDH #### [address] Smudge cell detectionOrdered By: Frederick Perez on 06-13-2022 Smudge cells LM Ql (Bld) Moderate [facility] CBC AUTO DIFFon 05-11-2022 BASO # 0.1 103/ul Normal 0.0-0.1 [facility] Comment on above: Performed By: #### C BC #### [facility] [address] [address] [address] Mary Herzog Basophils/100 WBC (Bld) 0.6 % Normal 0.2-2.0 [facility] Comment on above: Performed By: #### C BC #### [facility] [address] [address] [address] Mary Herzog EO # 0.3 103/ul Normal 0.0-0.7 [facility] Comment on above: Performed By: #### C BC #### [facility] [address] [place] [address] Dr. Mary Herzog Eosinophils/100 WBC (Bld) 1.9 % Normal 0.9-7.0 [facility] Comment on above: Performed By: #### C BC #### [facility] [address] [place] [address] Dr. Mary Herzog Erythrocyte distribution width (RBC) [Ratio] 13.1 % Normal 11.0-15.0 [facility] Comment on above: Performed By: #### C BC #### [facility] [address] [place] [address] Dr. Mary Herzog Hematocrit (Bld) [Volume fraction] 46.7 % Normal 36.0-48.0 [facility] Comment on above: Performed By: #### C BC #### [facility] [address] [place] [address] Dr. Mary Herzog Hemoglobin (Bld) [Mass/Vol] 15.1 g/dL Normal 12.0-16.0 [facility] Comment on above: Performed By: #### C BC #### [facility] [address] [place] [address] Dr. Mary Herzog IG # 0.05 10e3/ul Critically high 0.00-0.03 [facility] Comment on above: Performed By: #### C BC #### [facility] [address] [place] [address] Dr. Mary Herzog IG % 0.3 % Normal 0.0-0.5 [facility] Comment on above: Performed By: #### C BC #### [facility] [address] [place] [address] Dr. Mary Herzog LYMPH # 10.4 103/ul Critically high 1.2-3.8 [facility] Comment on above: Performed By: #### C BC #### [facility] [address] [place] [address] Dr. Mary Herzog Lymphocytes/100 WBC (Bld) 56.5 % Normal 20.5-60.0 [facility] Comment on above: Performed By: #### C BC #### [facility] [address] [place] [address] Dr. Mary Herzog MANUAL DIFF REQ NO Normal [facility] Comment on above: Performed By: #### C BC #### [facility] [address] [place] [address] Dr. Mary Herzog MCH (RBC) [Entitic mass] 29.5 pg Normal 26.7-34.0 [facility] Comment on above: Performed By: #### C BC #### [facility] [address] [place] [address] Dr. Mayr Herzog MCHC (RBC) [Mass/Vol] 32.3 g/dL Normal 29.9-35.2 [facility] Comment on above: Performed By: #### C BC #### [facility] [address] [place] [address] Dr. Mary Herzog MCV (RBC) [Entitic vol] 91.2 fL Normal 81.0-99.0 [facility] Comment on above: Performed By: #### C BC #### [facility] [address] [place] [address] Dr. Mary Herzog MONO # 0.8 103/ul Normal 0.3-0.8 [facility] Comment on above: Performed By: #### C BC #### [facility] [address] [place] [address] Dr. Mary Herzog Monocytes/100 WBC (Bld) 4.4 % Normal 1.7-12.0 [facility] Comment on above: Performed By: #### C BC #### [facility] [address] [place] [address] Dr. Mary Herzog NEUT # 6.7 103/ul Critically high 1.4-6.5 [facility] Comment on above: Performed By: #### C BC #### [facility] [address] [place] [address] Dr. Mary Herzog Neutrophils/100 WBC (Bld) 36.3 % Critically low 43.0-75.0 [facility] Comment on above: Performed By: #### C BC #### [facility] [address] [address] [address] Mary Herzog Platelet mean volume (Bld) [Entitic vol] 10.9 fL Normal 9.5-13.5 [facility] Comment on above: Performed By: #### C BC #### [facility] [address] [place] [address] Dr. Mary Herzog PLT 279 103/ul Normal 150-450 [facility] Comment on above: Performed By: #### C BC #### [facility] [address] [place] [address] Dr. Mary Herzog RBC 5.12 106/ul Normal 4.20-5.40 [facility] Comment on above: Performed By: #### C BC #### [facility] [address] [place] [address] Dr. Mary Herzog WBC 18.3 103/ul Critically high 4.0-11.0 [facility] Comment on above: Performed By: #### C BC #### [facility] [address] [place] [address] Dr. Mary Herzog FERRITINon 05-11-2022 Ferritin [Mass/Vol] 97.0 ng/mL Normal 8.0-252.0 [facility] Comment on above: Performed By: #### F ERR #### [facility] [address] [place] [address] Dr. Mary Herzog PROF CHEM 8 (BAS METB)on Anion gap [Moles/Vol] 11.7 mmol/L Normal [facility] Comment on above: Performed By: #### V ITB12 #### [facility] [address] [place] [address] Dr. Mary Herzog Calcium [Mass/Vol] 10.1 mg/dL Normal 8.5-10.1 [facility] Comment on above: Performed By: #### V ITB12 #### [facility] [address] [place] [address] Dr. Mary Herzog Chloride [Moles/Vol] 101 mmol/L Normal 98-107 [facility] Comment on above: Performed By: #### V ITB12 #### [facility] [address] [address] [address] Mary Herzog CO2 [Moles/Vol] 30.7 mmol/L Normal 21.0-32.0 [facility] Comment on above: Performed By: #### V ITB12 #### [facility] [address] [address] [address] Mary Herzog Creatinine [Mass/Vol] 0.97 mg/dL Normal 0.55-1.02 [facility] Comment on above: Performed By: #### V ITB12 #### [facility] [address] [address] [address] Mary Herzog EGFR-AF [place] >60 Normal >=60 [facility] Comment on above: Performed By: #### V ITB12 #### [facility] [address] [address] [address] Mary Herzog EGFR-NON AF [place] 56 mL/min/1.73m2 Critically low >=60 [facility] Comment on above: Performed By: #### V ITB12 #### [facility] [address] [address] [address] Mary Herzog Glucose [Mass/Vol] 138 mg/dL Critically high 74-106 [facility] Comment on above: Performed By: #### V ITB12 #### [facility] [address] [address] [address] Mary Herzog Potassium [Moles/Vol] 4.4 mmol/L Normal 3.5-5.1 [facility] Comment on above: Performed By: #### V ITB12 #### [facility] [address] [address] [address] Mary Herzog Sodium [Moles/Vol] 139 mmol/L Normal 136-145 [facility] Comment on above: Performed By: #### V ITB12 #### [facility] [address] [address] [address] Mary Herzog Urea nitrogen [Mass/Vol] 21.0 mg/dL Critically high 7.0-18 .0 [facility] Comment on above: Performed By: #### V ITB12 #### [facility] [address] [place], [place] [address] Dr. Mary Herzog Urea nitrogen/Creatinine [Mass ratio] 21.6 mg/mg Normal [facility] Comment on above: Performed By: #### V ITB12 #### [facility] [address] [place], [place] [address] Dr. Mary Herzog TSHon 05-11-2022 TSH 1.796 uIU/mL Normal 0.358-3.740 [facility] Comment on above: Performed By: #### V ITB12 #### [facility] [address] [place], [place] [address] Dr. Mary Herzog Basophils Auto (Bld) [#/Vol] Ordered By: Sherwin Yepez on 10-17-2021 Basophils (Bld) [#/Vol] 0.1 10*3/uL 0.0-0.2 [facility] Basophils/100 WBC Auto (Bld) Ordered By: Sherwin Yepez on 10-17-2021 Basophils/100 WBC (Bld) 0.4 % . F [facility] Blood hemoglobin measurement (mass/volume)Ordered By: Sherwin Yepez on 10-17-2021 Hemoglobin (Bld) [Mass/Vol] 14.4 g/dL 11.8-15.4 [facility] Blood leukocytes automated c ount (number/volume)Ordered By: Sherwin Yepez on 10-17-2021 WBC (Bld) [#/Vol] 19.6 10*3/uL 4.5-11.0 [facility] Creatinine and Glomerular fi ltration rate.predicted panel (S/P/Bld)Ordered By: Sherwin Yepez on 10-17-2021 Creatinine [Mass/Vol] 0.97 mg/dL 0.44-1.03 [facility] Eosinophils Auto (Bld) [#/Vo l]Ordered By: Sherwin Yepez on 10-17-2021 Eosinophils (Bld) [#/Vol] 0.0 10*3/uL 0.0-0.45 [facility] Eosinophils/100 WBC Auto (Bl d)Ordered By: Sherwin Yepez on 10-17-2021 Eosinophils/100 WBC (Bld) 0.0 % . [facility] Erythrocyte distribution wid th Auto (RBC) [Ratio]Ordered By: Sherwin Yepez on 10-17-2021 Erythrocyte distribution width (RBC) [Ratio] 13.8 % 11.9-15.3 [facility] Estimated glomerular filtrat ion rate (GFR) non- AmericanOrdered By: Sherwin Yepez on 10-17-2021 GFR/1.73 sq M.predicted among non-blacks MDRD (S/P/Bld) [Vol rate/Area] 56 mL/Min [facility] Hematocrit Auto (Bld) [Volum e fraction]Ordered By: Sherwin Yepez on 10-17-2021 Hematocrit (Bld) [Volume fraction] 43.4 % 34.0-46.4 [facility] - Hematology and Cell countsOrdered By: Sherwin Yepez on 10-17-2021 Nucleated RBC/100 WBC (Bld) [Ratio] 0.0 % 0-0.5 [facility] Lymphocytes Auto (Bld) [#/Vo l]Ordered By: Sherwin Yepez on 10-17-2021 Lymphocytes (Bld) [#/Vol] 5.7 10*3/uL 1.00-4.8 [facility] Lymphocytes/100 WBC Auto (Bl d)Ordered By: Sherwin Yepez on 10-17-2021 Lymphocytes/100 WBC (Bld) 28.9 % . [facility] MCH Auto (RBC) [Entitic mass ]Ordered By: Sherwin Yepez on 10-17-2021 MCH (RBC) [Entitic mass] 30.0 pg 24.7-34.3 [facility] MCHC Auto (RBC) [Mass/Vol]Or dered By: Sherwin Yepez on 10-17-2021 MCHC (RBC) [Mass/Vol] 33.0 g/dL 32.0-35.0 [facility] MCV Auto (RBC) [Entitic vol] Ordered By: Sherwin Yepez on 10-17-2021 MCV (RBC) [Entitic vol] 90.7 fL 80-[address] [facility] Monocytes Auto (Bld) [#/Vol] Ordered By: Sherwin Yepez on 10-17-2021 Monocytes (Bld) [#/Vol] 1.2 10*3/uL 0.0-0.8 [facility] Monocytes/100 WBC Auto (Bld) Ordered By: Sherwin Yepez on 10-17-2021 Monocytes/100 WBC (Bld) 5.9 % . F [facility] Neutrophils Auto (Bld) [#/Vo l]Ordered By: Sherwin Yepez on 10-17-2021 Neutrophils (Bld) [#/Vol] 12.7 10*3/uL 1.8-7.7 [facility] Neutrophils/100 WBC Auto (Bl d)Ordered By: Sherwin Yepez on 10-17-2021 Neutrophils/100 WBC (Bld) 64.8 % . [facility] No Panel InformationOrdered By: Sherwin Yepez on 10-17-2021 Estimated GFR () > 60 mL/Min [facility] Comment on above: GFR estimated refere nce range: According to KDOQI guidelines, <60 ml/min/1.73m2 is sufficient to diagnose a patient with chronic kidney disease. Pharmacy Creatinine Clearance (Chem 42.09 [facility] Platelet Estimate Normal Normal [facility] Platelet Morphology Comment Normal Normal [facility] Platelet mean volume Auto (B ld) [Entitic vol]Ordered By: Sherwin Yepez on 10-17-2021 Platelet mean volume (Bld) [Entitic vol] 9.8 fL 6.3-10.7 [facility] Platelets Auto (Bld) [#/Vol] Ordered By: Sherwin Yepez on 10-17-2021 Platelets (Bld) [#/Vol] 238 10*3/uL 150-450 [facility] RBC Auto (Bld) [#/Vol]Ordere d By: Sherwin Yepez on 10-17-2021 RBC (Bld) [#/Vol] 4.79 10*6/uL 3.60-5.00 [facility] RBC morphologyOrdered By: Wolf Yepez on 10-17-2021 RBC morphology finding Nom (Bld) N/A [facility] Serum or plasma chloride soham surement (moles/volume)Ordered By: Sherwin Yepez on 10-17-2021 Chloride [Moles/Vol] 100 mmol/L 95-114 [facility] Serum or plasma potassium me asurement (moles/volume)Ordered By: Sherwin Yepez on 10-17-2021 Potassium [Moles/Vol] 4.9 mmol/L 3.5-5.1 [facility] Serum or plasma sodium measu rement (moles/volume)Ordered By: Sherwin Yepez on 10-17-2021 Sodium [Moles/Vol] 133 mmol/L 136-146 [facility] Serum or plasma total carbon dioxide measurement (moles/volume)Ordered By: Sherwin Yepez on 10-17-2021 CO2 [Moles/Vol] 25.3 mmol/L 22.0-30.0 [facility] Serum or plasma urea nitroge n measurement (mass/volume)Ordered By: Sherwin Yepez on 10-17-2021 Urea nitrogen [Mass/Vol] 16 mg/dL 9-23 [facility] COVID-19 Positive/NegativeOr dered By: Sherwin Yepez on 10-12-2021 SARS-CoV-2 (COVID-19) N gene RUSSEL+probe Ql (Resp) Negative Negative [facility] Comment on above: Testing for SARS-CoV -2 by RT-PCR This test was developed and its performance characteristics determined by [employer] ([employer]) and validated at the [facility]. This test has not been FDA [...] on 10-06-2021 Basophils (Bld) [#/Vol] N/A F [facility] Basophils/100 WBC Auto (Bld) Ordered By: Sherwin Yepez on 10-06-2021 Basophils/100 WBC (Bld) N/A F [facility] Basophils/100 WBC (Bld) 1 % 0-[address] [facility] Blood hemoglobin measurement (mass/volume)Ordered By: Sherwin Yepez on 10-06-2021 Hemoglobin (Bld) [Mass/Vol] 14.7 g/dL 11.8-15.4 [facility] Blood leukocytes automated c ount (number/volume)Ordered By: Sherwin Yepez on 10-06-2021 WBC (Bld) [#/Vol] 17.0 10*3/uL 4.5-11.0 [facility] Creatinine and Glomerular fi ltration rate.predicted panel (S/P/Bld)Ordered By: Sherwin Yepez on 10-06-2021 Creatinine [Mass/Vol] 0.89 mg/dL 0.44-1.03 [facility] Eosinophils Auto (Bld) [#/Vo l]Ordered By: Sherwin Yepez on 10-06-2021 Eosinophils (Bld) [#/Vol] N/A [facility] Eosinophils/100 WBC Auto (Bl d)Ordered By: Sherwin Yepez on 10-06-2021 Eosinophils/100 WBC (Bld) N/A [facility] Erythrocyte distribution wid th Auto (RBC) [Ratio]Ordered By: Sherwin Yepez on 10-06-2021 Erythrocyte distribution width (RBC) [Ratio] 13.9 % 11.9-15.3 [facility] Estimated glomerular filtrat ion rate (GFR) non- AmericanOrdered By: Sherwin Yepez on 10-06-2021 GFR/1.73 sq M.predicted among non-blacks MDRD (S/P/Bld) [Vol rate/Area] > 60 mL/Min [facility] Hematocrit Auto (Bld) [Volum e fraction]Ordered By: Sherwin Yepez on 10-06-2021 Hematocrit (Bld) [Volume fraction] 45.0 % 34.0-46.4 [facility] - Hematology and Cell countsOrdered By: Sherwin Yepez on 10-06-2021 Nucleated RBC/100 WBC (Bld) [Ratio] 0.1 % 0-0.5 [facility] Lymphocytes Auto (Bld) [#/Vo l]Ordered By: Sherwin Yepez on 10-06-2021 Lymphocytes (Bld) [#/Vol] N/A [facility] Lymphocytes/100 WBC Auto (Bl d)Ordered By: Sherwin Yepez on 10-06-2021 Lymphocytes/100 WBC (Bld) N/A [facility] Lymphocytes/100 WBC (Bld) 43 % 18-42 [facility] Lymphocytes/100 WBC Manual c nt (Bld)Ordered By: Sherwin Yepez on 10-06-2021 Lymphocytes/100 WBC (Bld) 21 % 0-12 [facility] MCH Auto (RBC) [Entitic mass ]Ordered By: Sherwin Yepez on 10-06-2021 MCH (RBC) [Entitic mass] 29.8 pg 24.7-34.3 [facility] MCHC Auto (RBC) [Mass/Vol]Or dered By: Sherwin Yepez on 10-06-2021 MCHC (RBC) [Mass/Vol] 32.7 g/dL 32.0-35.0 [facility] MCV Auto (RBC) [Entitic vol] Ordered By: Sherwin Yepez on 10-06-2021 MCV (RBC) [Entitic vol] 90.9 fL 80-[address] [facility] Monocyte %Ordered By: Sherwin mcclendon on 10-06-2021 Monocytes/100 WBC (Bld) 2 % 1-[address] [facility] Monocytes Auto (Bld) [#/Vol] Ordered By: Sherwin Yepez on 10-06-2021 Monocytes (Bld) [#/Vol] N/A F [facility] Monocytes/100 WBC Auto (Bld) Ordered By: Sherwin Yepez on 10-06-2021 Monocytes/100 WBC (Bld) N/A F [facility] Monocytes/100 WBC Manual cnt (Bld)Ordered By: Sherwin Yepez on 10-06-2021 Monocytes/100 WBC (Bld) 6 % 2-[address] [facility] Neutrophils Auto (Bld) [#/Vo l]Ordered By: Sherwin Yepez on 10-06-2021 Neutrophils (Bld) [#/Vol] N/A [facility] Neutrophils/100 WBC Auto (Bl d)Ordered By: Sherwin Yepez on 10-06-2021 Neutrophils/100 WBC (Bld) N/A [facility] No Panel InformationOrdered By: Sherwin Yepez on 10-06-2021 Estimated GFR () > 60 mL/Min [facility] Comment on above: GFR estimated refere nce range: According to KDOQI guidelines, <60 ml/min/1.73m2 is sufficient to diagnose a patient with chronic kidney disease. Pharmacy Creatinine Clearance (Chem N/A [facility] Platelet Estimate Normal Normal [facility] Platelet Morphology Comment Normal Normal [facility] Platelet mean volume Auto (B ld) [Entitic vol]Ordered By: Sherwin Yepez on 10-06-2021 Platelet mean volume (Bld) [Entitic vol] 9.2 fL 6.3-10.7 [facility] Platelets Auto (Bld) [#/Vol] Ordered By: Sherwin Yepez on 10-06-2021 Platelets (Bld) [#/Vol] 223 10*3/uL 150-450 [facility] RBC Auto (Bld) [#/Vol]Ordere d By: Sherwin Yepez on 10-06-2021 RBC (Bld) [#/Vol] 4.95 10*6/uL 3.60-5.00 [facility] RBC morphologyOrdered By: Wolf Yepez on 10-06-2021 RBC morphology finding Nom (Bld) Normal [facility] Segmented neutrophils/100 WB C Manual cnt (Bld)Ordered By: Sherwin Yepez on 10-06-2021 Segmented neutrophils/100 WBC (Bld) 27 % 50-70 [facility] Serum or plasma calcium tamie urement (mass/volume)Ordered By: Sherwin Yepez on 10-06-2021 Calcium [Mass/Vol] 9.5 mg/dL 8.2-10.2 [facility] Serum or plasma chloride soham surement (moles/volume)Ordered By: Sherwin Yepez on 10-06-2021 Chloride [Moles/Vol] 99 mmol/L 95-114 [facility] Serum or plasma glucose tamie urement (mass/volume)Ordered By: Sherwin Yepez on 10-06-2021 Glucose [Mass/Vol] 98 mg/dL 70-100 [facility] Comment on above: ADA recommended refe rence range Random Glucose Reference Range is dependent on time and content of last meal. Glucose of more than 200 mg/dL in a nonstressed, ambulatory subject supports the diagnosis of Diabetes Mellitus. Serum or plasma potassium me asurement (moles/volume)Ordered By: Sherwin Yepez on 10-06-2021 Potassium [Moles/Vol] 4.7 mmol/L 3.5-5.1 [facility] Serum or plasma sodium measu rement (moles/volume)Ordered By: Sherwin Yepez on 10-06-2021 Sodium [Moles/Vol] 135 mmol/L 136-146 [facility] Serum or plasma total carbon dioxide measurement (moles/volume)Ordered By: Sherwin Yepez on 10-06-2021 CO2 [Moles/Vol] 27.3 mmol/L 22.0-30.0 [facility] Serum or plasma urea nitroge n measurement (mass/volume)Ordered By: Sherwin Yepez on 10-06-2021 Urea nitrogen [Mass/Vol] 19 mg/dL 9-23 [facility] CNPFarida 12-01-2020 PAULAN Telephone ([facility]MAS[facility]) MARITZA ESPINO ([id number]) 1945 F Date Time Provider Department 12/01/20 ANDREI MARIO During your visit today, we recorded the following information about you: Nicole Neal [facility] 12/01/2020 9:08 AM Signed Records faxed to [facility]. Patient to follow with Dr. Beckett. Release [...] MULTIVITAMIN ORAL Take by mouth. - folic acid/multivit-min/lut ein (CENTRUM SILVER ORAL) Take by mouth. - multivit,calc,mins/ir on/folic (ONE-A-DAY WOMENS FORMULA ORAL) Take by mouth. - lisinopril 2.5 mg tablet Problem List As Of Date 12/01/2020 Noted Resolved Lymphocytosis [D72.820] 12/11/2016 CLL (chronic lymphocytic leukemia) ([facility]) [C91.1*12/11/2017 Encounter Status:Closed by NICOLE VÁZQUEZ on 12/01/20 [facility] Viridiana 11-24-2020 CNPN Telephone ([employer]) MARITZA ESPINO ([id number]) 1945 F Date Time Provider Department 11/24/20 ANDREI MARIO During your visit today, we recorded the following information about you: Mai Carlson 11/24/2020 2:33 PM Signed Please sign pending lab orders for Saturday12/02/20. Chris, VAISHALI Faye MD 11/28/2020 2:56 PM Signed Signed thanks Allergies As of Date: 11/24/2020 Noted Allergy Reaction AMOXICILLIN 11/20/2016 7 - Swelling Comments: Facial swelling RAGWEED POLLEN 11/19/2016 16 - Unknown Date Reviewed: 05/27/2020 Reviewed by: Jayson Sullivan - Fully Assessed Reason for Visit: Lab Orders [1688] Primary Visit Diagnosis:CLL (chronic lymphocytic leukemia) (HCC) [C91.10] Order(s):CBC + DIFF [SQCBCDIF] Order #: [id number] STANDING COMP METABOLIC PANEL [SQCMP] Order #: [id number] STANDING LD LACTATE DEHYDRO [SQLD6] Order #: [id number] STANDING Prescriptions as of 11/30/2020 - amitriptyline [...] MULTIVITAMIN ORAL Take by mouth. - folic acid/multivit-min/lut ein (CENTRUM SILVER ORAL) Take by mouth. - multivit,calc,mins/ir on/folic (ONE-A-DAY WOMENS FORMULA ORAL) Take by mouth. - lisinopril 2.5 mg tablet Problem List As Of Date 11/24/2020 Noted Resolved Lymphocytosis [D72.820] 12/11/2016 CLL (chronic lymphocytic leukemia) (HCC) [C91.1*12/11/2017 Encounter Status:Closed by MAI CARLSON on 11/30/20 [facility] CNOVSPon 06-01-2020 CNOVSP Visit (SP) Office ([facility]) MARITZA ESPINO ([id number]) 1945 F Date Time Provider Department 06/01/20 10:00 AM ANDREI MARIO During your visit today, we recorded the following information about you: Temperature Pulse Respiration Blood pressure 97.2 degrees 73/minute 18/minute 131/73 Weight Height 56.3 kg 1.579 m Andrei Mario MD 06/01/2020 10:13 AM Signed NAME: Maritza Espino CLINIC NO.: [id number] DATE OF SERVICE: June 01, 2020 Some [...] Pattern LSI BETHEL (11q22.3): Normal Pattern LSI [id number] (13q14): Normal Pattern CEP 12: Normal Pattern LSI LAMP1 (13q34): Normal Pattern IGH/CCND1 t(11;14)(q13;q32): Negative INTERPRETATION: There is a normal pattern of hybridization with each of the probes tested. 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 1. 11/21/2016 Peripheral blood Flow Cy: Specimen originated from [facility] Specimen #: [id number] Submitting Physician: FREDERICK PEREZ II, DO SPECIMEN [...] REVIEW OF (more content not included)... Normal [facility] Comp Metabolic Panelon 06-01 Albumin [Mass/Vol] 4.3 g/dL Normal 3.9-4.9 [facility] ALP [Catalytic activity/Vol] 66 U/L Normal 34-123 [facility] ALT [Catalytic activity/Vol] 13 U/L Normal 7-38 [facility] Anion gap [Moles/Vol] 8 mmol/L Low 9-18 [facility] AST [Catalytic activity/Vol] 20 U/L Normal 13-35 [facility] Bilirubin [Mass/Vol] 0.5 mg/dL Normal 0.2-1.3 [facility] Calcium [Mass/Vol] 9.4 mg/dL Normal 8.5-10.2 [facility] Chloride [Moles/Vol] 101 mmol/L Normal 97-105 [facility] CO2 [Moles/Vol] 26 mmol/L Normal 22-30 [facility] Creatinine [Mass/Vol] 1.12 mg/dL High 0.58-0.96 [facility] eGFR- Amer. 58 Normal [facility] eGFR-All Other Races 48 . Normal [facility] Comment on above: Result Comment: eGFR [...] [Mass/Vol] 97 mg/dL Normal 74-99 [facility] Comment on above: Result Comment: The [place] Diabetes Association (ADA) provides guidance for cutoff [...] Standards of Medical Care in Diabetes 2016, [place] [employer] Association. Diabetes Care. 2016.39(Suppl 1). Potassium [Moles/Vol] 4.5 mmol/L Normal 3.7-5.1 [facility] Protein [Mass/Vol] 6.4 g/dL Normal 6.3-8.0 [facility] Sodium [Moles/Vol] 135 mmol/L Low 136-144 [facility] Urea nitrogen [Mass/Vol] 32 mg/dL High 7-21 [facility] LDon 06-01-2020 LD 173 U/L Normal 135-214 [facility] Remote CBCDIF (for [facility] use o nly)on 06-01-2020 Abs Baso 0.10 k/uL Normal <0.11 [facility] Abs Johnston 0.97 k/uL High <0.87 [facility] Abs Neut 5.24 k/uL Normal 1.45-7.50 [facility] Absolute nRBC <0.01 Normal <0.01 [facility] Basophils/100 WBC (Bld) 0.5 % Normal [facility] DTYPE Auto Diff Normal [facility] Eosinophils (Bld) [#/Vol] 0.47 10*3/uL High <0.46 [facility] Eosinophils/100 WBC (Bld) 2.3 % Normal [facility] Erythrocyte distribution width (RBC) [Ratio] 13.3 % Normal 11.5-15.0 [facility] Hematocrit (Bld) [Volume fraction] 44.1 % Normal 36.0-46.0 [facility] Hemoglobin (Bld) [Mass/Vol] 14.3 g/dL Normal 11.5-15.5 [facility] Lymphocytes (Bld) [#/Vol] 13.74 10*3/uL High 1.00-4.00 [facility] Lymphocytes/100 WBC (Bld) 67.0 % Normal [facility] MCH 29.6 pG Normal 26.0-34.0 [facility] MCHC (RBC) [Mass/Vol] 32.4 g/dL Normal 30.5-36.0 [facility] MCV (RBC) [Entitic vol] 91.3 fL Normal 80.0-100.0 [facility] Monocytes/100 WBC (Bld) 4.7 % Normal [facility] Neutrophils/100 WBC (Bld) 25.5 % Normal [facility] NRBCs 0.0 /100 WBC Normal 0 [facility] Platelet mean volume (Bld) [Entitic vol] 10.5 fL Normal 9.0-12.7 [facility] Platelets (Bld) [#/Vol] 309 10*3/uL Normal 150-400 [facility] RBC (Bld) [#/Vol] 4.83 10*6/uL Normal 3.90-5.20 [facility] WBC (Bld) [#/Vol] 20.52 10*3/uL High 3.70-11.00 [facility] CNPNon 05-27-2020 CNPN Telephone ([facility]) MARITZA ESPINO ([id number]) 1945 F Date Time Provider Department 05/27/20 [...] (chronic lymphocytic leukemia) (HCC) [C91.10] Other Visit Diagnosis:Lymphocytos is [D72.820] Order(s):CBC + DIFF (FOR REMOTE [facility] USE) [SQRCBCDF] Order #: [id number] FUTURE COMP METABOLIC PANEL [SQCMP] Order #: [id number] FUTURE LD LACTATE DEHYDRO [SQLD6] Order #: [id number] FUTURE Prescriptions as of 05/27/2020 Sig: METOPROLOL [...] by JAYSON SULLIVAN CNP on 05/27/20 Normal [facility] Vital Signs Date Time Vital Sign Value Performing Clinician Facility 08-14-2023 13:10-0400 Diastolic blood pressure 84 mm[Hg] Papito Tripp [facility] 08-14-2023 13:10-0400 Mean blood pressure 109 mm[Hg] Papito Tripp [facility] 08-14-2023 13:10-0400 Systolic blood pressure 160 mm[Hg] Papito Tripp [facility] 08-14-2023 13:07-0400 Blood Pressure Location [employer]y[facility] Tripp [facility] 08-14-2023 13:07-0400 Diastolic blood pressure 83 mm[Hg] Papito Tripp [facility] 08-14-2023 13:07-0400 Heart rate 92 /min Papito Tripp [facility] 08-14-2023 13:07-0400 Respiratory rate 16 /min Papito Tripp [facility] 08-14-2023 13:07-0400 Systolic blood pressure 162 mm[Hg] Papito Tripp [facility] 07-10-2023 11:25-0400 Diastolic blood pressure 82 mm[Hg] Mohamad Mouchli [facility] 07-10-2023 11:25-0400 Heart rate 86 /min Mohamad Mouchli [facility] 07-10-2023 11:25-0400 Respiratory rate 17 /min Mohamad Mouchli [facility] 07-10-2023 11:25-0400 SaO2% (BldA) [Mass fraction] 95 % Mohamad Mouchli [facility] 07-10-2023 11:25-0400 Systolic blood pressure 141 mm[Hg] Mohamad Mouchli [facility] 07-10-2023 11:10-0400 Diastolic blood pressure 76 mm[Hg] Mohamad Mouchli [facility] 07-10-2023 11:10-0400 Heart rate 80 /min Mohamad Mouchli [facility] 07-10-2023 11:10-0400 Respiratory rate 12 /min Mohamad Mouchli [facility] 07-10-2023 11:10-0400 SaO2% (BldA) [Mass fraction] 98 % Mohamad Mouchli [facility] 07-10-2023 11:10-0400 Systolic blood pressure 119 mm[Hg] Mohamad Mouchli [facility] 07-10-2023 11:05-0400 Diastolic blood pressure 66 mm[Hg] Mohamad Mouchli [facility] 07-10-2023 11:05-0400 Heart rate 73 /min Mohamad Mouchli [facility] 07-10-2023 11:05-0400 Respiratory rate 13 /min Mohamad Mouchli [facility] 07-10-2023 11:05-0400 SaO2% (BldA) [Mass fraction] 96 % Mohamad Mouchli [facility] 07-10-2023 11:05-0400 Systolic blood pressure 106 mm[Hg] Mohamad Mouchli [facility] 07-10-2023 10:55-0400 Body temperature 97.52 [degF] Mohamad Mouchli [facility] 07-10-2023 10:50-0400 Respiratory rate 15 /min Mohamad Mouchli [facility] 07-10-2023 10:45-0400 Respiratory rate 15 /min Mohamad Mouchli [facility] 07-10-2023 10:40-0400 Respiratory rate 15 /min Mohamad Mouchli [facility] 07-10-2023 08:49-0400 Blood Pressure Location Mohamad Mouchli [facility] 07-10-2023 08:49-0400 Body temperature 97.52 [degF] Mohamad Mouchli [facility] 07-03-2023 08:18-0400 Body height 157.[address] [facility] 07-03-2023 08:18-0400 Body mass index (BMI) [Ratio] 20.1 kg/m2 MD Becker [facility] 07-03-2023 08:18-0400 Body weight 49.[address] [facility] 07-03-2023 08:18-0400 Diastolic blood pressure 80 mm[Hg] MD Becker [facility] 07-03-2023 08:18-0400 Heart rate 91 /min MD Eugenio Beckett [facility] 07-03-2023 08:18-0400 Systolic blood pressure 134 mm[Hg] MD Becekr [facility] 06-17-2023 10:28-0400 Body temperature 97.5 [degF] MD Becker [facility] 06-17-2023 10:28-0400 Body weight 49.[address] [facility] 06-17-2023 10:28-0400 Diastolic blood pressure 92 mm[Hg] MD Becker [facility] 06-17-2023 10:28-0400 Heart rate 96 /min MD Becker [facility] 06-17-2023 10:28-0400 Respiratory rate 16 /min MD Becker [facility] 06-17-2023 10:28-0400 SaO2% (BldA) [Mass fraction] 96 % MD Becker [facility] 06-17-2023 10:28-0400 Systolic blood pressure 169 mm[Hg] MD Becker [facility] 06-13-2023 09:42-0400 Body height 157.[address] [facility] 06-13-2023 09:42-0400 Body mass index (BMI) [Ratio] 20.3 kg/m2 MD Becker [facility] 06-13-2023 09:42-0400 Body weight 50.[address] [facility] 06-13-2023 09:42-0400 Diastolic blood pressure 87 mm[Hg] MD Becker [facility] 06-13-2023 09:42-0400 Heart rate 93 /min MD Becker [facility] 06-13-2023 09:42-0400 Systolic blood pressure 164 mm[Hg] MD Becker [facility] 05-27-2023 12:06-0500 Diastolic blood pressure 86 mm[Hg] Papito Tripp [facility] 05-27-2023 12:06-0500 Mean blood pressure 108 mm[Hg] Mohamad Mouchli [facility] 05-27-2023 12:06-0500 Systolic blood pressure 151 mm[Hg] Mohamad Mouchli [facility] 05-27-2023 12:01-0500 Blood Pressure Location Mohamad Mouchli [facility] 05-27-2023 12:01-0500 Body temperature 97.34 [degF] Mohamad Mouchli [facility] 05-27-2023 12:01-0500 Diastolic blood pressure 90 mm[Hg] Mohamad Mouchli [facility] 05-27-2023 12:01-0500 Heart rate 91 /min Mohamad Mouchli [facility] 05-27-2023 12:01-0500 Respiratory rate 14 /min Mohamad Mouchli [facility] 05-27-2023 12:01-0500 Systolic blood pressure 158 mm[Hg] Mohamad Mouchli [facility] 04-23-2023 08:45-0500 Body height 157.48 cm Evaristo Anguiano Other [facility] 04-23-2023 08:45-0500 Body mass index (BMI) [Ratio] 20.37 kg/m2 Evaristo Anguiano Other [facility] Other 04-23-2023 08:45-0500 Body weight 50.53 kg Evaristo Anguiano Other [facility] 04-23-2023 08:45-0500 Diastolic blood pressure 78 mm[Hg] Evaristo Anguiano Other [facility] 04-23-2023 08:45-0500 Systolic blood pressure 130 mm[Hg] Evaristo Anguiano Other [facility] 04-16-2023 13:30-0500 Body height 157.48 cm Evaristo Anguiano Other [facility] 04-16-2023 13:30-0500 Body mass index (BMI) [Ratio] 20.67 kg/m2 Evaristo Anguiano Other [facility] Other 04-16-2023 13:30-0500 Body weight 51.26 kg Evaristo Anguiano Other [facility] Other 04-16-2023 13:30-0500 Body weight 51.25 kg MD Eugenio Beckett [facility] 04-16-2023 13:30-0500 Diastolic blood pressure 78 mm[Hg] Evaristo Anguiano Other [facility] 04-16-2023 13:30-0500 SaO2% (BldA) [Mass fraction] 97 % Evaristo Anguiano Other [facility] Other 04-16-2023 13:30-0500 Systolic blood pressure 120 mm[Hg] Evaristo Anguiano Other [facility] 02-11-2023 13:15-0500 Body height 157.48 cm Evaristo Anguiano Other [facility] Other 02-11-2023 13:15-0500 Body mass index (BMI) [Ratio] 20.81 kg/m2 Evaristo Anguiano Other [employer] Other 02-11-2023 13:15-0500 Body weight 51.62 kg Evaristo Anguiano Other [facility] Other 02-11-2023 13:15-0500 Diastolic blood pressure 87 mm[Hg] Evaristo Anguiano Other [facility] Other 02-11-2023 13:15-0500 Systolic blood pressure 149 mm[Hg] Evaristo Anguiano Other [facility] Other 01-01-2023 08:30-0400 Body height 157.48 cm Evaristo Anguiano Other [facility] Other 01-01-2023 08:30-0400 Body mass index (BMI) [Ratio] 21.32 kg/m2 Evaristo Anguiano Other [facility] Other 01-01-2023 08:30-0400 Body weight 52.89 kg Evaristo Anguiano Other [facility] Other 01-01-2023 08:30-0400 Diastolic blood pressure 84 mm[Hg] Evaristo Anguiano Other [facility] Other 01-01-2023 08:30-0400 Systolic blood pressure 154 mm[Hg] Evaristo Anguiano Other [facility] Other 07-02-2022 09:30-0400 Body height 157.48 cm Evaristo Anguiano Other [facility] Other 07-02-2022 09:30-0400 Body mass index (BMI) [Ratio] 21.58 kg/m2 Evaristo Anguiano Other [facility] Other 07-02-2022 09:30-0400 Body weight 53.52 kg Evaristo Anguiano Other [facility] Other 07-02-2022 09:30-0400 Diastolic blood pressure 72 mm[Hg] Evaristo Anguiano Other [facility] Other 07-02-2022 09:30-0400 SaO2% (BldA) [Mass fraction] 98 % Evaristo Anguiano Other [facility] Other 07-02-2022 09:30-0400 Systolic blood pressure 138 mm[Hg] Evaristo Anguiano Other [facility] Other 06-18-2022 10:53-0400 Body temperature 97.8 [degF] MD Becker [facility] 06-18-2022 10:53-0400 Body weight 53.[address] [facility] 06-18-2022 10:53-0400 Diastolic blood pressure 77 mm[Hg] MD Becker [facility] 06-18-2022 10:53-0400 Heart rate 91 /min MD Becker [facility] 06-18-2022 10:53-0400 Respiratory rate 16 /min MD Becker [facility] 06-18-2022 10:53-0400 SaO2% (BldA) [Mass fraction] 94 % MD Becker [facility] 06-18-2022 10:53-0400 Systolic blood pressure 148 mm[Hg] MD Becker [facility] 05-11-2022 09:45-0500 Body height 157.48 cm Evaristo Anguiano Other [facility] Other 05-11-2022 09:45-0500 Body mass index (BMI) [Ratio] 21.95 kg/m2 Evaristo Anguiano Other [facility] Other 05-11-2022 09:45-0500 Body weight 54.43 kg Evaristo Anguiano Other [facility] Other 05-11-2022 09:45-0500 Diastolic blood pressure 82 mm[Hg] Evaristo Anguiano Other [facility] Other 05-11-2022 09:45-0500 SaO2% (BldA) [Mass fraction] 97 % Evaristo Anguiano Other [facility] Other 05-11-2022 09:45-0500 Systolic blood pressure 130 mm[Hg] Evaristo Anguiano Other [facility] Other 04-05-2022 15:30-0500 Body height 157.48 cm Evaristo Anguiano Other [facility] Other 04-05-2022 15:30-0500 Body mass index (BMI) [Ratio] 21.58 kg/m2 Evaristo Anguiano Other [facility] Other 04-05-2022 15:30-0500 Body weight 53.52 kg Evaristo Anguiano Other [facility] Other 04-05-2022 15:30-0500 Diastolic blood pressure 88 mm[Hg] Evaristo Anguiano Other [facility] Other 04-05-2022 15:30-0500 SaO2% (BldA) [Mass fraction] 98 % Evaristo Anguiano Other [facility] Other 04-05-2022 15:30-0500 Systolic blood pressure 140 mm[Hg] Evaristo Anguiano Other [facility] Other 10-17-2021 15:57-0400 Body temperature 97.6 [degF] MD Evaristo Anguiano Work Phone: [facility] 10-17-2021 15:57-0400 Diastolic blood pressure 67 mm[Hg] MD Evaristo Anguiano Work Phone: [facility] 10-17-2021 15:57-0400 Heart rate 76 /min MD Evaritso Anguiano Work Phone: [facility] 10-17-2021 15:57-0400 Respiratory rate 14 /min MD Evaristo Anguiano Work Phone: [facility] 10-17-2021 15:57-0400 SaO2% (BldA) [Mass fraction] 91 % MD Evaristo Anguiano Work Phone: [facility] 10-17-2021 15:57-0400 Systolic blood pressure 112 mm[Hg] MD Evaristo Anguiano Work Phone: [facility] 10-17-2021 09:45-0400 Body height 160.02 cm MD Evaristo Anguiano Work Phone: [facility] 10-17-2021 08:42-0400 Inhaled oxygen flow rate 2 L/min MD Evaristo Anguiano Work Phone: [facility] 10-17-2021 05:08-0400 Body weight 55.3 kg MD Evaristo Anguiano Work Phone: [facility] 10-16-2021 11:25-0400 Body mass index (BMI) [Ratio] 20 kg/m2 MD Evaristo Anguiano Work Phone: [facility] 06-16-2021 14:43-0400 Body height 159 cm MD Eugenio Beckett [facility] Encounters Encounter Date Encounter Type Care Provider Facility Start: 08-14-2023 End: 08-15-2023 ambulatory Papito Tripp Facility:[facility] Start: 08-14-2023 End: 08-14-2023 Patient encounter procedure Papito Tripp [facility] Start: 07-10-2023 End: 07-11-2023 ambulatory Papito Tripp Facility:[facility] Start: 07-10-2023 End: 07-10-2023 Patient encounter procedure Papito Tripp [facility] Start: 07-03-2023 End: 07-03-2023 ambulatory MD Eugenio Pineda [facility] Work Phone: Start: 07-03-2023 End: 07-03-2023 [facility] encounter procedure [facility] Start: 06-28-2023 Non-patient / Non-visit MD Eugenio Pineda [facility] Work Phone: Start: 06-17-2023 Registered Recurring MD Eugenio gregorio [facility] Work Phone: Start: 06-17-2023 End: 06-17-2023 ambulatory MD Eugenio Pineda [facility] Work Phone: Start: 06-17-2023 End: 06-17-2023 [facility] Start: 06-13-2023 End: 06-13-2023 ambulatory MD Eugenio Beckett [facility] Work Phone: Start: 06-13-2023 End: 06-13-2023 Patient encounter procedure MD Eugenio Pineda [facility] Work Phone: Start: 06-12-2023 Registered Recurring MD [facility] Work [facility]: Start: 05-27-2023 End: 05-28-2023 ambulatory Papito Tripp Facility:[facility] Start: 05-27-2023 End: 05-27-2023 Patient encounter procedure Papito Tripp [facility] Start: 04-30-2023 End: 04-30-2023 ambulatory Evaristo Anguiano Other [facility] Other Start: 04-30-2023 Telephone encounter Evaristo Annmarie [facility] Start: 04-29-2023 ambulatory Eniderindenice Troysabrina Sterling y:Abelino Start: 04-23-2023 End: 04-23-2023 ambulatory Evaristo Anguiano Other [facility] Other Start: 04-23-2023 Office outpatient visit 15 minutes Evaristo Anguiano [facility] Start: 04-23-2023 End: 04-23-2023 Patient encounter procedure MD Eugenio Beckett [facility] Start: 04-16-2023 End: 04-16-2023 ambulatory Evaristo Anguiano Other [facility] Other Start: 04-16-2023 Office outpatient visit 15 minutes Evaristo Annmarie [facility] Start: 04-16-2023 End: 04-16-2023 Patient encounter procedure MD Eugenio Beckett [facility] Start: 02-11-2023 End: 02-11-2023 ambulatory Evaristo Annmarie Other [facility] Other Start: 02-11-2023 Office outpatient visit 15 minutes Evaristo Annmarie [facility] Start: 02-11-2023 Telephone encounter Evaristo Anguiano [facility] Start: 01-14-2023 End: 01-14-2023 ambulatory Evaristo Anguiano Other [facility] Other Start: 01-14-2023 Telephone encounter Evaristo Anguiano [facility] Start: 01-01-2023 End: 01-01-2023 ambulatory Evaristo Anguiano Other [facility] Other Start: 01-01-2023 Office outpatient visit 25 minutes Evaristo Anguiano [facility] Start: 08-22-2022 End: 08-22-2022 ambulatory KRISHAN GONSALEZ Facility:[facility] Start: 07-06-2022 End: 07-07-[address] NONE LISTED REQUEST Facility:[facility] Start: 07-02-2022 End: 07-02-2022 ambulatory Evaristo Anguiano Other [facility] Other Start: 07-02-2022 Office outpatient visit 15 minutes Evaristo Anguiano [facility] Start: 06-18-2022 ambulatory Frederick Diop Tico sherwood II Facility:[facility] Start: 05-18-2022 End: 05-18-2022 ambulatory Evaristo Anguiano Other [facility] Other Start: 05-18-2022 Telephone encounter Evaristo Anguiano [facility] Start: 05-17-2022 End: 05-17-2022 ambulatory Evaristo Anguiano Other [facility] Other Start: 05-17-2022 Telephone encounter Evaristo Anguiano [facility] Start: 05-11-2022 Office outpatient visit 15 minutes Evaristo Anguiano [facility] Start: 05-11-2022 End: 05-12-[address] EVARISTO ANGUIANO [facility] [employer] Other Start: 05-01-2022 End: 05-01-2022 ambulatory Evaristo Anguiano Other [facility] Other Start: 05-01-2022 Telephone encounter Evaristo Anguiano [facility] Start: 04-05-2022 End: 04-05-2022 ambulatory Evaristo Anguiano Other [facility] Other Start: 04-05-2022 Office outpatient visit 15 minutes Evaristo Anguiano [facility] Start: 10-16-2021 End: 10-17-2021 Admission to same day surgery center MD Evaristo Anguiano Work Phone: [facility] Start: 10-12-2021 End: 10-12-2021 Patient encounter procedure MD Evaristo Anguiano Work Phone: [facility] Start: 10-06-2021 End: 10-06-2021 Patient encounter procedure MD Evaristo Anguiano Work Phone: [facility] Start: 08-31-2021 End: 08-31-2021 Departed Referred MD Evaristo Anguiano Work Phone: [facility] Start: 08-29-2021 End: 08-29-2021 Patient encounter procedure MD Evaristo Anguiano Work Phone: [facility] Procedures Date Procedure Procedure Detail Performing Clinician Start: 07-10-2023 Colonoscopy Papito bennett Comment on above: poor prep, diverticu losis t/o Start: 10-16-2021 Laparoscopic fundoplication MD Evaristo Anguiano Work Phone: Start: 03-25-2021 Hiatal hernia (disorder) Papito Tripp Start: 03-25-2017 Colonoscopy Papito bennett Start: 03-25-2013 Elbow region structu re (body structure) Papito Tripp Start: 08-23-1997 Gallbladder structur e (body structure) Papito Tripp Tonsillar structure (palatine) (body structure) Papito Tripp Plan of Treatment Date Care Activity Detail Author Start: 10-17-2021 Administration of pr ophylactic treatment [facility] Work Phone: Start: 10-17-2021 [facility] Work Phone: Start: 06-16-2021 [facility] Comprehensive metabo lic 2000 panel - Serum or Plasma [facility] EKG 12 channel panel [facility] Patient referral [facility] Work Phone: [facility] Immunizations Immunization Date Immunization Notes Care Provider Fa cility 12-25-2022 influenza virus vaccine, unspecified formulation Papito Tripp [facility] 02-13-2022 COVID-19 Pfizer (Pediatric) Evaristo Anguiano Other [facility] 02-13-2022 SARS-CoV-2 (COVID-19 ) [id number] Papito Tripp [facility] 12-13-2021 influenza virus vaccine, split virus (incl. purified surface antigen) Evaristo Anguiano Other [facility] Other 12-13-2021 influenza virus vaccine, unspecified formulation Papito Tripp [facility] 01-02-2021 influenza virus vaccine, split virus (incl. purified surface antigen) Evaristo Anguiano Other [facility] Other 01-02-2021 influenza virus vaccine, unspecified formulation Papito Tripp [facility] 12-19-2020 COVID-19 mRNA, Comirnaty (Pfizer) MD Evaristo Anguiano Work Phone: [facility] Comment on above: Result Comment: 2023: [id number] 05-18-2020 COVID-19 mRNA, Comirnaty (Pfizer) MD Evaristo Anguiano Work Phone: [facility] Comment on above: Result Comment: 2023: [id number] 04-27-2020 COVID-19 mRNA, Comirnaty (Pfizer) MD Evaristo Anguiano Work Phone: [facility] Comment on above: Result Comment: 2023: [id number] 11-29-2019 influenza virus vaccine, unspecified formulation Mohamad Woodrowuchblanca [facility] 12-23-2018 influenza virus vaccine, unspecified formulation Papito Tripp [facility] 01-31-2018 pneumococcal polysaccharide vaccine, 23 valjovanna Anguiano Other [facility] 01-20-2018 influenza virus vaccine, unspecified formulation Papito Tripp [facility] 01-21-2017 influenza virus vaccine, unspecified formulation Papito Tripp [facility] 01-21-2017 pneumococcal conjuga te vaccine, 13 valjovanna Anguiano Other [facility] Payers Date Payer Category Payer Unknown [id number] 1957 Medicare [id number] [facility] [id number] 1957 Self-pay [id number] 1957 Unknown [id number] 1945 Unknown [id number] 2.16.84 [id number] 1945 Unknown [id number] 2.16.84 [id number] 1945 Unknown [id number] 2.16.84 [id number] 1945 Unknown [id number] 2.16.8 [id number] 1945 Unknown [id number] 2.16.8 [id number] 1945 Unknown [id number] 2.16.8 [id number] Unknown [id number] 2.16.84 [id number] Unknown [id number] 2.16.8 [id number] Social History Date Type Detail Facility Start: 10-06-2021 End: 08-14-2023 Tobacco smoking status NHIS Never smoked tobacco (finding) [facility] Start: 1945 Sex Assigned At Female F [facility] Sex Assigned At [facility] Goals Date Patient Goal Desired Activity /State Functional Status Date Assessment Result Facility 08-14-2023 Functional Status N/A [facility] 07-10-2023 Functional Status N/A [facility] 05-27-2023 Functional Status N/A [facility] 10-17-2021 Functional status Patient at Baseline [facility] Work Phone: Mental Status Date Assessment Result Facility 10-17-2021 Cognitive function Cognitive Sta tus Patient at Baseline [facility] Work Phone: Clinical Notes 06-01-2020 to 07-11-2023 Note Date & Type Note Facility 07-11-2023 Note [id number] 1.00TIFF [facility] 07-10-2023 Evaluation + Plan note Extrac jose from: Title:ANES Post-operative Note - General Author: Darius Nelson Jr., DO Date:07/10/23 Plan Transfer/Discharge: Transfer/Discharge Discharge when meets criteria ( From PACU to Ambulatory Surgery Unit, and To home ). Extracted from: Title:ANES Pre-operative Note - Endo Author:Darius Elizabeth Jr., DO Date:07/10/23 Plan [place] [employer]hes[employer] (ASA) physical status classification: Class III. Anesthetic Preoperative Plan: Anesthesia General, and -TIVA. Future Scheduled Tests Laboratory* Calprotectin, Fecal 06/24/23 * Fecal WBC Lactoferrin 06/24/23 * Giardia lamblia, Direct Detection EIA 06/24/23 * O & P Exam, Routine 06/24/23 * Rotavirus Ab 06/24/23 * Clostridium Difficile PCR 06/24/23 * Enteric Panel by PCR 06/24/23 [facility]04-17-2024 Hospital Discharge instructions Patient Education 07/10/2023 11:13:46 Colonoscopy, Care After Surgery Harish (CUSTOM) Colonoscopy Care After Surgery Please read the instructions outlined below and refer to this sheet in the next few weeks. These discharge instructions provide you with general information on [facility] Your doctor may also give you specific instructions. While your treatment has been planned according to the most current medical practices available, unavoidable complications occasionally occur. If you have any problems or questions after discharge, please call your doctor. ACTIVITY You may resume your regular activity, but move at a slower pace for the next 24 hours. Take frequent rest periods for the next 24 hours. Walking will help get rid of the air and reduce the bloated feeling in your abdomen (belly). No driving for 24 hours (because of the anesthesia (medicine) used during the test). You may shower. Do not sign any important legal documents or operate any machinery for 24 hours (because of the anesthesia used during the test). NUTRITION Drink plenty of fluids. You may resume your normal diet as instructed by your doctor. Begin with a light meal and progress to your normal diet. Heavy or fried foods are harder to digestand may make you feel nauseated (sick to your stomach). Avoid alcoholic beverages for 24 hours or as instructed. MEDICATIONS You may resume your normal medications unless your doctor tells you otherwise. WHAT YOU CAN EXPECT TODAY Some feelings of bloating in the abdomen. Passage of more gas than usual. Spotting of blood in your stool or on the toilet paper. FOLLOW-UP Your doctor will discuss the results of your test with you. SEEK IMMEDIATE MEDICAL ATTENTION IF: There is more than a spotting of blood in your stool. There is abdominal distention (your abdomen is swollen). There is vomiting. You have a temperature over 101.5 F. There is abdominal pain or discomfort that is severe or gets worse throughout the day. 07/10/2023 11:13:46 Hemorrhoids Hemorrhoids Hemorrhoids are swollen veins in and around the rectum or anus. There are two types of hemorrhoids: Internal hemorrhoids. These occur in the veins that are just inside the rectum. They may poke through to the outside and become irritated and painful. External hemorrhoids. These occur in the veins that are outside the anus and can be felt as a painful swelling or hard lump near the anus. Most hemorrhoids do not cause serious problems, and they can be managed with home treatments such as diet and lifestyle changes. If home treatments do not help the symptoms, procedures can be done toshrink or remove the hemorrhoids. What are the causes? This condition is caused by increased pressure in the anal area. This pressure may result from various things, including: Constipation. Straining to have a bowel movement. Diarrhea. . Obesity. Sitting for long periods of time. Heavy lifting or other activity that causes you to strain. Anal sex. Riding a bike for a long period of time. What are the signs or symptoms? Symptoms of this condition include: Pain. Anal itching or irritation. Rectal bleeding. Leakage of stool (feces). Anal swelling. One or more lumps around the anus. How is this diagnosed? This condition can often be diagnosed through a visual exam. Other exams or tests may also be done,such as: An exam that involves feeling the rectal area with a gloved hand (digital rectal exam). An exam of the anal canal that is done using a small tube (anoscope). A blood test, if you have lost a significant amount of blood. A test to look inside the colon using a flexible tube with a camera on the end (sigmoidoscopy or colonoscopy). How is this treated? This condition can usually be treated at home. However, various procedures may be done if dietary changes, lifestyle changes, and other home treatments do not help your symptoms. These procedures canhelp make the hemorrhoids smaller or remove them completely. Some of these procedures involve surgery, and others do not. Common procedures include: Rubber band ligation. Rubber bands are placed at the base of the hemorrhoids to cut off their bloodsupply. Sclerotherapy. Medicine is injected into the hemorrhoids to shrink them. Infrared coagulation. A type of light energy is used to get rid of the hemorrhoids. Hemorrhoidectomy surgery. The hemorrhoids are surgically removed, and the veins that supply them are tied off. Stapled hemorrhoidopexy surgery. The surgeon karen the base of the hemorrhoid to the rectal wall. Follow these instructions at home: Eating and drinking Eat foods that have a lot of fiber in them, such as whole grains, beans, nuts, fruits, and vegetables. Ask your health care provider about taking products that have added fiber (fiber supplements). Reduce the amount of fat in your diet. You can do this by eating low-fat dairy products, eating less red meat, and avoiding processed foods. Drink enough fluid to keep your urine pale yellow. Managing pain and swelling Take warm sitz baths for 20 minutes, 3 4 times a day to ease pain and discomfort. You may do this in a bathtub or using a portable sitz bath that fits over the toilet. If directed, apply ice to the affected area. Using ice packs between sitz baths may be helpful. ?Put ice in a plastic bag. ?Place a towel between your skin and the bag. ?Leave the ice on for 20 minutes, 2 3 times a day. General instructions Take ggob-kau-nirnttg and prescription medicines only as told by your health care provider. Use medicated creams or suppositories as told. Get regular exercise. Ask your health care provider how much and what kind of exercise is best for you. In general, you should do moderate exercise for at least 30 minutes on most days of the week (150 minutes each week). This can include activities such as walking, biking, or yoga. Go to the bathroom when you have the urge to have a bowel movement. Do not wait. Avoid straining to have bowel movements. Keep the anal area dry and clean. Use wet toilet paper or moist towelettes after a bowel movement. Do not sit on the toilet for long periods of time. This increases blood pooling and pain. Keep all follow-up visits as told by your health care provider. This is important. Contact a health care provider if you have: Increasing pain and swelling that are not controlled by treatment or medicine. Difficulty having a bowel movement, or you are unable to have a bowel movement. Pain or inflammation outside the area of the hemorrhoids. Get help right away if you have: Uncontrolled bleeding from your rectum. Summary Hemorrhoids are swollen veins in and around the rectum or anus. Most hemorrhoids can be managed with home treatments such as diet and lifestyle changes. Taking warm sitz baths can help ease pain and discomfort. In severe cases, procedures or surgery can be done to shrink or remove the hemorrhoids. This information is not intended to replace advice given to you by your health care provider. Make sure you discuss any questions you have with your health care provider. Document Revised: 09/20/2021 Document Reviewed: 09/20/2021 [employer] Patient Education 2022 [employer]. 07/10/2023 11:13:46 Diverticulosis MAGR (CUSTOM) Diverticulosis Many people have small pouches in their colon called diverticulum. The diverticulum bulge outward through weak spots in the colon. You could have one or more of these pouches in the colon. The condition of having these pouches in the colon is called diverticulosis or diverticular disease. Diverticulosis is usually diagnosed by tests to evaluate something else. For example, you may have had a colonoscopy to screen for colon cancer when the diverticulosis was found. Most people with diverticulosis do not have any discomfort or problems. If symptoms develop, they may include mild cramps, bloating, and constipation. A complication of this condition is called diverticulitis. This is when the diverticulum become inflamed and infected. How to treat diverticulosis: Increasing the amount of fiber in the diet may reduce symptoms of diverticulosis and prevent complications such as diverticulitis (infected diverticuli). Fiber keeps stool soft and lowers pressure inside the colon so that bowel contents can move througheasily. You should eat 20 to 35 grams of fiber each day. The table below shows the amount of fiber in some foods that you can easily add to your diet. Adding fiber slowly may decrease the bloating and fullness sometimes felt with an immediate high fiber diet. The doctor may also recommend taking a fiber product such as Citrucel or Metamucil once a day. In the past people with diverticulosis were to avoid nuts, corn, and seeds. This has not been foundto be true. If you find that certain foods create cramping or bloating, avoid that food. Foods high in fiber include: Fresh fruits, fresh vegetables, legumes (beans), whole wheat bread, bran muffins or cereal, and nuts. See the table below for examples of high fiber foods. Remember, your goal is 20- 35 grams per day. Amount of fiber in different foods Food Serving Grams of fiber Fruits Apple (with skin) 1 medium apple 4.4 Banana 1 medium banana 3.1 Oranges 1 orange 3.1 Prunes 1 cup, pitted 12.4 Juices Apple, unsweetened, w/added ascorbic acid 1 cup 0.5 Grapefruit, white, canned, sweetened 1 cup 0.2 Grape, unsweetened, w/added ascorbic acid 1 cup 0.5 Mcnabb 1 cup 0.7 Vegetables Cooked Green beans 1 cup 4.0 Carrots 1/2 cup sliced 2.3 Peas 1 cup 8.8 Potato (baked, with skin) 1 medium potato 3.8 Raw [place] (with peel) 1 cucumber 1.5 Lettuce 1 cup shredded 0.5 Tomato 1 medium tomato 1.5 Spinach 1 cup 0.7 Legumes Baked beans, canned, no salt added 1 cup 13.9 Kidney beans, canned 1 cup 13.6 Haas beans, canned 1 cup 11.6 Lentils, boiled 1 cup 15.6 Breads, pastas, flours Bran muffins 1 medium muffin 5.2 Oatmeal, cooked 1 cup 4.0 White bread 1 slice 0.6 Whole-wheat bread 1 slice 1.9 Pasta and rice, cooked Macaroni 1 cup 2.5 Rice, brown 1 cup 3.5 Rice, white 1 cup 0.6 Spaghetti (regular) 1 cup 2.5 Nuts Almonds 1/2 cup 8.7 Peanuts 1/2 cup 7.9 Chart from [facility] 2013. SEEK IMMEDIATE MEDICAL CARE IF: You develop abdominal (belly) pain. An oral temperature above _ 101 F__develops. Repeated vomiting occurs. Blood is being passed in stools (bright red or black tarry stools). You develop any bowel problems or changes which you have not had before. Extra Information: To learn how much fiber and other nutrients are in different foods, visit the [place] Department of Agriculture (USDA) National Nutrient Database at: http://www.nal.usda.gov/fnic/foodcomp/search/ Created using data from the USDA National Nutrient Database for Standard Reference. Available at http://www.nal.usda.gov/fnic/foodcomp/search/. Information adapted from: ExitCare Patient Information 2009 [employer]. [facility] 2012 http://www.Medigo/contents/wlylqsyljnkz-dyrbjbk-clktvz-the-basics Follow Up Care 07/02/2023 08:30:53 With:Papito Tripp Address: [facility] [address], [address] [place] [address]- [phone] Business (1) When: Unknown Comments:office wll call for follow up [facility]04-01-2024 Evaluation + Plan note Future Scheduled Tests Laboratory* Calprotectin, Fecal 06/24/23 * Fecal WBC Lactoferrin 06/24/23 * Giardia lamblia, Direct Detection EIA 06/24/23 * O & P Exam, Routine 06/24/23 * Rotavirus Ab 06/24/23 * Clostridium Difficile PCR 06/24/23 * Enteric Panel by PCR 06/24/23 [facility] 01-30-2024 Evaluation note* Encounter Date Diagnosis Assessment Notes Treatment Notes Treatment Clinical Notes Mar, Acute diarrhea (ICD-10 - R19.7) Trial of levsin, pt requests referral to [facility] 01-23-2024 Evaluation note* Encounter Date Diagnosis Assessment Notes Treatment Notes Treatment Clinical Notes Mar, Acute diarrhea (ICD-10 - R19.7) advised taking Imodium 1-2x daily and resuming normal rather than a BRAT diet. Will call her on 04/18 and check on her symptoms. Pt agrees she feels well, except when she has to use BR suddenly. She was transferred to [place] in January and she is concerned this is related to a recurrance of that problem. [facility] Other 11-20-2023 Evaluation note* Encounter Date Diagnosis Assessment Notes Treatment Notes Treatment Clinical Notes Jan, Pneumatosis intestinalis (ICD-10 - K63.89) Completely resolved. Reviewed notes from [facility]. Pt is back to a normal [...] symptoms. Any developing patterns. Stay well hydrated. [facility] Other 10-10-2023 Evaluation note* Encounter Date Diagnosis [...] intermittent and no worse. Continue daily MVI. [facility] Other 05-31-2023 NotePROCEDURE: XR ELBOW LT MIN 3 VIEWS HISTORY: Pain ; acute left elbow pain; no known injury COMPARISON: None. FINDINGS: BONES:No fracture, acute abnormality, or significant arthropathy. SOFT TISSUES:No visible soft tissue swelling. EFFUSION:None visible. OTHER: Negative. IMPRESSION: 1. No acute bone abnormality or significant degenerative joint disease. Electronically authenticated by: JUMANA YBARRA Date: 2022-08-22 09:05[facility]05-31-2023 NotePROCEDURE: XR ANKLE RT MIN 3 VIEWS [...] Electronically authenticated by: JUMANA YBARRA Date: 2022-08-22 09:01[facility]04-10-2023 Evaluation note* Encounter Date Diagnosis Assessment Notes [...] I10) chronic - stable on present med. [facility] Other 02-24-2023 Evaluation note* Encounter Date Diagnosis Assessment Notes Treatment Notes Treatment Clinical Notes Apr, Paresthesia (ICD-10 - R20.2) [facility] 02-17-2023 Evaluation note* Encounter Date Diagnosis [...] stable. continue present meds. Due for labs. [facility] Other 01-12-2023 Evaluation note* Encounter Date Diagnosis [...] tolerated procedure well. Post care instructions given [facility] 07-26-2022 Progress note Author Sherwin Yepez [facility] October 17, 2021 8:28am Note Date/Time October 17, 2021 8:28 am [facility] [address] [place] [address] General Surgery Progress Note Signed Patient: Maritza Espino MR#: [id number] 1524 : 1945 Acct:[id number] Age/Sex: 76 / F Adm Date: 2 Loc: 4N Room: 1X5264-6 Type : REG VAC Attending Dr: Sherwin Yepez DO Copies to: [...] Mg/0.4 Ml Syringe) 40 mg SUBCUT DAILY@1000 [facility] Stop: 10/17/22 09:59 Famotidine (Famotidine/Pf 20 Mg/2 Ml Vial) 20 mg IV-PUSH Q12HR [facility] Stop: 10/16/22 20:59 Last Admin: 10/16/21 21:53 Dose: 20 mg Hydromorphone HCl (Hydromorphone 0.5 Mg/0.5 Ml Syringe) 1 mg IV-PUSH Q3H PRN PRN Reason: Pain Hydromorphone HCl (Hydromorphone 0.5 Mg/0.5 Ml Syringe) 0.5 mg IV-PUSH Q3H PRN PRN Reason: Pain Last Admin: 10/17/21 06:37 Dose: 0.5 mg Potassium Chloride/Sodium Chloride (0.9 % Nacl-20 Meq Kcl) 1,000 mls @ 80 mls/hr IV .[id number] [facility] Stop: 10/16/22 17:07 Last Admin: 10/17/21 [...] % (Auto) 64.8, Lymph % (Auto) 28.9, Johnston % (Auto) 5.9, Eos % (Auto) 0.0, Baso % (Auto) 0.4, Neut # (Auto) 12.7 H, Lymph # (Auto) 5.7 H, Johnston # (Auto) 1.2 H, Eos # (Auto) [...] signed by DO Sherwin Yepez> 10/17/21 0828 [facility] Work Phone: [phone]) 273-609003-10-2021 NoteHNO ID: [id number] Author: Andrei Mario Service: ? Author Type: Physician Type: Progress Notes Filed: 06/01/2020 10:13 AM Note Text: NAME: Maritza Espino CLINIC NO.: [id number] DATE OF SERVICE: June 01, 2020 Some [...] today. She was formerly a patient of [facility]. There have been no treatment indications. PATHOLOGIC [...] Pattern LSI BETHEL (11q22.3): Normal Pattern LSI [id number] (13q14): Normal Pattern CEP 12: Normal Pattern LSI LAMP1 (13q34): Normal Pattern IGH/CCND1 t(11;14)(q13;q32): Negative INTERPRETATION: There is a normal pattern of hybridization with each of the probes tested. 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 1. 11/21/2016 Peripheral blood Flow Cy: Specimen originated from [facility] Specimen #: [id number] Submitting Physician: FREDERICK PEREZ II, DO SPECIMEN [...] area is 1.57 meters (more content not included)...[facility] No data available for this section [facility] Evaluation noteNo assessment information available [facility] Work Phone: Evaluation note* Diagnosis Onset Date Resolution Status Hiatal hernia acute [facility] Work Phone: Evaluation noteNo [employer] Other Evaluation note* Diagnosis Onset Date Resolution Status CLL (chronic lymphocytic leukemia) acute Hiatal hernia acute [facility] Work Phone: Evaluation note* Diagnosis Onset Date Resolution Status CLL (chronic lymphocytic leukemia) acute Contact dermatitis acute Irregular heart rate acute CLL (chronic lymphocytic leukemia) acute CLL (chronic lymphocytic leukemia) acute Hiatal hernia acute [facility] Work Phone: Evaluation note* Diagnosis Onset Date Resolution Status CLL (chronic lymphocytic leukemia) acute Contact dermatitis acute Irregular heart rate acute CLL (chronic lymphocytic leukemia) acute CLL (chronic lymphocytic leukemia) acute Hiatal hernia acute CLL (chronic lymphocytic leukemia) acute Essential hypertension acute Weight loss acute [facility] Work Phone: History general Narrative - Reported* Type Description Date [...] History hernia repair Hospitalization History see above [facility] [place] Other Hisypiq general Narrative - Reported* Type Description Date [...] History hernia repair Hospitalization History [facility], [place] 01/24-2 3 [facility] Other Hospital Discharge instructions No data available for this section [facility] Progress note No data available for this section [facility] Projeevj note Author Frederick Perez [facility] June 17, 2023 10:54am Note Date/Time June 17, 2023 10: 26am [facility] at [address] [address] [facility] Center Note Signed Patient: Maritza Espino MR#: [id number] 1524 : 1945 Acct:[id number] Age/Sex: 78 / F Type: REG AMB Date of Service: 06/17/23 Copies to: Evaristo Anguiano MD~ Assessment & Plan A/P (1) [...] well. She followed initially with me at [facility] and then Dr. Beckett at [facility] and now she is following with me [...] chills, denies lumps bumps. follows with Dr. Evaristo Anguiano, lives in [place]. she is on a steroid for a [...] visit for CLL and go over labs [facility] Medical History Medical History Large hiatal hernia [...] 06/12/23 09:24 Glucose 122 mg/dL (70-100) H 06/12/23 09:24 Est GFR (CKD-EPI) > 60.0 mL/Min [...] 144 U/L (140-271) 06/12/23 09:24 Dictated By: Frederick Perez II, DO DD/ 1024 Signed By: <Electronically signed by Frederick Perez II, DO> 06/17/23 1054 [facility] Work Phone: Reason for referral (narrative)* Reason Pt has family i n Josh, Admitted to [facility] in the fall, discharge summary scanned in; diarrhea, bowel changes; did not have a colonoscopy in the fall Diagnosis 1 Acute diarrhea (R19. 7) Referral Organization [facility] Referring Provider First Name Evaristo Referring Provider Last Name Annmarie Referring Provider Specialty Family [facility] Referred [facility] Referred Provider Naty Belle Referred Address [address] [place] [phone] Referred Provider Specialty Gastroentero logy Referral Priority Routine General Notes Silvia Pereira 10:15:03 AM >received today, attachments made, waiting for notes to be locked. [facility] Other Summary Purpose Family History No Family [...] neoplasm Unknown sister Hypertension Unknown Advance Directives No Advanced Directives Records [...] leukemia) CLL (chronic lymphocytic leukemia) Hiatal hernia Chief Complaint Bowel Issues-Diarrhe a Continued Diarrhea rash early stage CLL 6 Month Check Up Reason for Visit CLL (chronic lymphoc ytic leukemia) Contact dermatitis Irregular heart rate CLL (chronic lymphocytic leukemia) CLL (chronic lymphocytic leukemia) Hiatal hernia CLL (chronic lymphocytic leukemia) Essential hypertension Weight loss Reason for Referral Reason 06/25/22 [place] office, Last OV and labs. Will also scan in labs from last year to send along. Thank you Diagnosis 1 Paresthesia (R20.2) Referral Organization [facility] marcelo Referring Provider First Name Evaristo Referring Provider Last Name Annmarie Referring Provider Specialty Family [facility] Referred Organization [facility] Referred Provider Sharon Davila Referred Address [address], [place],[address] Referred Provider Specialty Neurology Referral Priority Routine Referral Appointment Date 2022-06-25 General Notes Silvia Pereira 11:05:24 AM >received today, attachments made, form filled out, referral faxed Silvia Pereira 05/31/2022 10:06:11 AM >faxed first attempt letter Silvia Pereira 06/05/2022 08:49:35 AM >RECEIVED FAX WITH APPT DATE Additional Source Comments INFORMATION SOURCE (unrecogn ized section and content) DATE CREATED AUTHOR 04/26/2021 [facility] DATE CREATED AUTHOR AUTHOR'S ORGANIZ ATION 08/31/2022 [facility] DATE CREATED AUTHOR AUTHOR'S ORGANIZ ATION 06/13/2023 [facility] DATE CREATED AUTHOR AUTHOR'S ORGANIZ ATION 08/16/2023 [facility] Care Teams (unrecognized sec tion and content) Team Status: Inactive Member Role Status Dates Evaristo Anguiano MD Primary Care Provider Active Sherwin Yepez DO Attending Provider Active Team Status: Active Member Role Status Dates Evaristo Anguiano MD Primary Care Provider Active Team Status: Inactive Member Role Status Dates Evaristo Anguiano MD Attending Provider Active St art: April 16, 2023 End: April 16, 2023 Team Status: Inactive Member Role Status Dates Evaristo Anguiano MD Attending Provider Active St art: April 23, 2023 End: April 23, 2023 Team Status: Active Member Role Status Dates Frederick Perez II, DO Attending Provider Active Start: June 12, 2023 Eugenio Beckett MD Referring Provider Active Sta rt: June 12, 2023 Evaristo Anguiano MD Primary Care Provider Active Start: June 12, 2023 Team Status: Inactive Member Role Status Dates Evaristo Anguiano MD Primary Care Provide r, Attending Provider Active Start: June 13, 2023 End: June 13, 2023 Team Status: Inactive Member Role Status Dates Evaristo Anguiano MD Primary Care Provider Active Start: June 17, 2023 End: June 17, 2023 Frederick Perez II, DO Attending Provider Active Start: June 17, 2023 End: June 17, 2023 Team Status: Active Member Role Status Dates Frederick Perez II, DO Attending Provider Active Start: June 17, 2023 Eugenio Beckett MD Referring Provider Active Sta rt: June 17, 2023 Evaristo Anguiano MD Primary Care Provider Active Start: June 17, 2023 Team Status: Active Member Role Status Dates Evaristo Anguiano MD Primary Care Provide r, Attending Provider Active Start: June 28, 2023 Team Status: Inactive Member Role Status Humberto Anguiano MD Primary Care Provide r, Attending Provider Active Start: July 03, 2023 End: July 03, 2023 Goals (unrecognized section and content) Goals may be documented in a n alternate sectionNo InformationNo InformationNo InformationNo InformationNo InformationNo InformationNo InformationNo InformationNo InformationNo InformationNo InformationNo InformationNo Information No data available for this sectionGoals may be documented in an alternate sectionGoals may be documented in an alternate sectionGoals may be documented in an alternate section No data available for this section No data available for this section REASON FOR VISIT (unrecogniz ed section and content) mole changing, BP issuesNo I nformationtoes/fingers numblabslabs3 month Follow up6 month Follow upmessagerecords.[facility] Issues- Diarrheacontinued diarrheamessage FOR RECORDS PERTAINING TO [...] BE BASED ON THE PRIMARY CLINICAL RECORDS. [facility]. provides no warranty or guarantee of the accuracy or completeness of information in this document.
== END 2024-01-02 14:45 | disposition home or self-care (01) ==
LOC: RAD 14:46
PROVIDERS: PCP Family Medicine; Visit Provider Family Medicine
DX: M25.511 Pain in right shoulder (principal)
CPT/HCPCS: 73030

== ENCOUNTER 2024-05-26 13:54 | Outpatient (OUT) | payer MEDICARE, OTHER, SELFPAY ==
--- NOTE | 2024-05-26 | ECG_ITS ---
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
== END 2024-05-26 13:55 | disposition home or self-care (01) ==
LOC: CARD 13:56
PROVIDERS: PCP Family Medicine; Visit Provider Family Medicine
DX: I49.9 Cardiac arrhythmia, unspecified (principal); I10 Essential (primary) hypertension
CPT/HCPCS: 93005

== ENCOUNTER 2024-10-25 15:17 | Emergency (ER) | payer MEDICARE, OTHER, SELFPAY ==
[2024-10-25] VITALS (16 sets, daily range): BP systolic 150–178; BP diastolic 79–88; PULSE 82–104; TEMP 36.7; O2SAT 93–96; BMI 20.4
--- NOTE | 2024-10-25 15:18 | XR_ITS ---
The [address] [address] Patient Name: SHAHNAZ ADAMES MRN: [id number] date: 1945 Sex: F Assigned Patient Location: ED.MAIN Current Patient Location: ED.MAIN Accession/Order Number: [id number] Exam Date: 10/25/2024 17:11 Report Date: 10/25/2024 17:14 At the request of: DIANE WONG MD Procedure: XR chest 1V XR chest 1V 10/25/2024 4:09 PM SIGNS AND SYMPTOMS: Syncopal episode PROTOCOL: Frontal radiograph of the chest COMPARISON: None FINDINGS: The trachea is midline. There is cardiomegaly. There is interstitial prominence. No focal consolidation. The bony thorax is intact. XR/XR chest 1V IMPRESSION: There is cardiomegaly with interstitial prominence possibly related to volume overload. No focal consolidation. Impression dictated by: Jameson Das M.D. 10/25/2024 5:14 PM Dictation Location: [place] [address] Electronically authenticated by: [id number] Y Date: 10/25/2024 17:14
--- NOTE | 2024-10-25 15:18 | ECG_ITS ---
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 Measurements Intervals [place] Rate: 95 P: 60 NE: 154 QRS: 88 QRSD: 76 T: 73 QT: 348 QTc: 400 Interpretive Statements 1100 Sinus rhythm [address] depression 9150 abnormal ECG Compared to ECG 05/26/2024 14:30:24 ST (T wave) deviation now present Ventricular premature complex(es) no longer present Electronically Signed On 10-25-2024 18:53:55 EDT by ISSA ACOSTA M.D.
--- NOTE | 2024-10-25 15:19 | CT_ITS ---
The [address] [address] Patient Name: SHAHNAZ ADAMES MRN: [id number] date: 1945 Sex: F Assigned Patient Location: ED.MAIN Current Patient Location: ED.MAIN Accession/Order Number: [id number] Exam Date: 10/25/2024 16:17 Report Date: 10/25/2024 16:21 At the request of: DIANE WONG MD Procedure: CT head/brain wo con CT head/brain wo con 10/25/2024 4:09 PM SIGNS AND SYMPTOMS: ^syncope TECHNIQUE:Multi-detector CT axial slices of the brain were obtained without IV contrast. CT was performed with one or more of the following dose reduction techniques: Automated exposure control, adjustment of the mA and/or kV according to patient size, or use of iterative reconstruction technique. COMPARISON: None. FINDINGS: There is no shift of the midline structures, acute intracranial bleeding, mass effects, or evidence of acute ischemia. Atherosclerotic changes are present in the intracranial segments of the internal carotid arteries in the V4 segment of the right vertebral artery. There is mild age-related cortical atrophy. The ventricular system is normal in size. The brainstem and the cerebellum are unremarkable. The visualized intraorbital contents, the visualized paranasal sinuses, and the infratemporal soft tissues show no acute abnormality. The osseous structures in the skull base and the calvarium show no abnormality. CT/CT head/brain wo con IMPRESSION: No acute intracranial pathology. Chronic age-related neurodegenerative changes are noted as above. Impression dictated by: Jameson Das M.D. 10/25/2024 4:21 PM Dictation Location: [place] [address] Electronically authenticated by: [id number] Y Date: 10/25/2024 16:21
--- OUTSIDE RECORDS SUMMARY | 2024-10-25 15:24 | XMS_ITS | Clinical Summary ---
Author Organization [facility] Address [id number] [address] [place] [address] Care Team Providers Care Electric Frying Pan Repairer Name Role Phone Dang Shannon MD Primary Care Provider [phone] Allergies Active Allergy Reactions Criticality Noted Date Comments Amoxicillin Hives,Itching 02/03/2023 Medications losartan (COZAAR) 25 mg tablet Take 1 tablet (25 mg total) by mouth in the morning. Active aspirin 81 mg chewable tablet Chew 1 tablet (81 mg total) and swallow in the morning. Active calcium carbonate-vitam in D3 (CALCIUM 500 + D) 500 mg(1,250mg) -200 units per tablet Take 1 tablet by mouth in the morning and 1 tablet in the evening. Take with meals. Active xmkvitka-nhqi-H A-calcium &mins (THERAGRAN-M) 9 mg iron-400 mcg tablet Take 1 tablet by mouth in the morning. Active omeprazole (PriLOSEC OTC) 20 mg EC tablet Take 1 tablet (20 mg total) by mouth in the morning. 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 Immunizations Immunization Administration Dates Next Due Influenza High Dose Preservative Free IM 019,01/20/2018,01/21/2017 Influenza Vaccine, Quadrivalent, Adjuvanted 05/2022 Influenza, High-dose, Quadrivalent 12/13/2021,,11/29/2019 Pneumococcal Conjugate 13-Valent 01/21/2017 Pneumococcal Polysaccharide 01/31/2018 Social History Tobacco Use Types Packs/Day Years Used Date Smoking Tobacco: Former Cigarettes Q uit: 1960 Smokeless Tobacco: Never Tobacco Cessation:Counseling Given: Not Answered Alcohol Use Standard Drinks/Week Comments Yes 0 (1 standard drink = 0.6 oz pur e alcohol) very rare Housing Instability Answer Date Recorde d Are you worried or concerned that in the next two months you may not have stable housing that you own, rent or stay in as a part of a household? No 02/05/2023 Hunger Screening Answer Date Recorded Within the past 12 months we worried whether our food would run out before we got money to buy more. Never True 02/05/2023 Within the past 12 months th e food we bought just didn't last and we didn't have money to get more. Never True 02/05/2023 Comments Unknown Sex and Gender Information Value Date Recorded Sex Assigned at Not on file Legal Sex Female 6:59 AM EST Gender Identity Not on file Sexual Orientation Not on file Last Filed Vital Signs Vital Sign Reading Time Taken Comments Blood Pressure 149/71 02/05/2023 11:15 AM EST Pulse 84 02/05/2023 11:15 AM EST Temperature 36.3 C (97.3 F) 02/05/2023 11:15 AM EST Respiratory Rate 16 02/05/2023 11:15 AM EST Oxygen Saturation 96% 02/05/2023 11:15 AM EST Inhaled Oxygen Concentration - - Weight 50.9 kg (112 lb 3.4 oz) 02/04/2023 3:19 A M EST Height 157.5 cm (5' 2 ) 02/04/2023 8:24 AM EST Body Mass Index 20.52 02/04/2023 3:19 AM EST Plan of Treatment Health Maintenance Due Date Last Done Comments Depression Screening 1959 DTaP,Tdap and Td Vaccines (1 - Tdap) 1966 Zoster (Shingles) Vaccine (1 of 2) 1997 Fall Risk Screening 2012 COVID-19 Vaccine (5 - 2023-2 5 season) 2023 02/13/2022, 12/19/2020, 05/18/2020, Additional history exists Tobacco Screening 02/04/2024 02/03/2023 Influenza Vaccine 11/23/2024 12/25/2022, , 01/02/2021, Additional history exists Goals Goal Patient Goal Type Associated Problems Recent Progress Patient-Stated? Author <enter goal here> General Yes Vonnie Wilder, RN Note: Evaluation of progress towards goal: Patient plans for a safe discharge home with self care. Medical Devices Not on file Insurance MEDICARE COMMERCIAL Advance Directives * Full Code (Latest Code Status on File) Date Activated Date Inactivated Comments 02/03/2023 11:03 AM 02/05/2023 5:13 PM Care Teams Electric Frying Pan Repairer Relationship Specialty Start Date End Date Dang Shannon MD [address] [facility] [place] [address] PCP - General Family Medicine 02/04/23
--- OUTSIDE RECORDS SUMMARY | 2024-10-25 15:24 | XMS_ITS | Clinical Summary ---
Author Organization [facility] Address [address] [place] [address] Care Team Providers Care Broommaker Name Role Phone Unavailable Primary Care Provider Unavailabl e Social History Tobacco Use Types Packs/Day Years Used Date Smoking Tobacco: Never Assessed Comments Unknown Sex and Gender Information Value Date Recorded Sex Assigned at Not on file Legal Sex Female 6:43 PM EDT Gender Identity Not on file Sexual Orientation Not on file Last Filed Vital Signs Vital Sign Reading Time Taken Comments Blood Pressure 112/86 08/16/2021 12:00 PM EDT Pulse - - Temperature - - Respiratory Rate - - Oxygen Saturation - - Inhaled Oxygen Concentration - - Weight 51.7 kg (114 lb) 11/22/2021 12:00 PM EDT Height 162.6 cm (5' 4 ) 11/22/2021 12:00 PM EDT Body Mass Index 19.57 11/22/2021 12:00 PM EDT Plan of Treatment Not on file Insurance MEDICARE
--- OUTSIDE RECORDS SUMMARY | 2024-10-25 15:24 | XMS_ITS | Clinical Summary ---
Author Organization [facility] Address [address] [place] [id number] Care Team Providers Care Production Ski Repairer Name Role Phone Dang Shannon MD Primary Care Provider [phone] Allergies Active Allergy Reactions Criticality Noted Date Comments Amoxicillin Swelling High 11/20/2016 Facial swelling Ragweed Pollen Unknown 11/19/2016 Medications lisinopril 2.5 mg tablet 10/25/2017 Active alendronate (FOSAMAX) 70 mg tablet Take 70 mg by mouth one time a week. 4 10/12/2018 Active CALCIUM ORAL Take by mouth. Active cholecalciferol , vitamin D3, (VITAMIN D3 ORAL) Take by mouth. Active aspirin, enteric coated (ADULT LOW DOSE ASPIRIN) 81 mg EC tablet Take 81 mg by mouth once daily. Active MULTIVITAMIN ORAL Take by mouth. Active folic acid/multivit-m in/lutein (CENTRUM SILVER ORAL) Take by mouth. Active multivit,calc,m ins/iron/folic (ONE-A-DAY WOMENS FORMULA ORAL) Take by mouth. Active metoprolol succinate ER (TOPROL XL) 50 mg 24 hr tablet Take 50 mg by mouth once daily. 11/28/2019 Active amitriptyline (ELAVIL) 10 mg tablet TAKE 1 TABLET BY MOUTH EVERYDAY AT BEDTIME 05/04/2020 Active Active Problems Problem Noted Date Diagnosed Date CLL (chronic lymphocytic leukemia) 12/11/2017 Lymphocytosis 12/11/2016 Immunizations Immunization Administration Dates Next Due COVID-19 original vaccine, a ge 12+ yr, monovalent (Managed by Q - PURPLE TOP) 05/18/2020,04/27/2020 influenza (HD-IIV3) vaccine, age 65+ yr, high dose, trivalent, PF (FLUZONE HIGH-DOSE) 12/23/2018,01/20/2018,01/21/2017 influenza (HD-IIV4) vaccine, age 65+ yr, high dose, quadrivalent, PF (FLUZONE HIGH-DOSE) 11/29/2019 pneumococcal conjugate (PCV1 3) vaccine, 13 valent (PREVNAR 13) 01/21/2017 pneumococcal polysaccharide (PPV23) vaccine, 23 valent (PNEUMOVAX 23) 01/31/2018 Family History Medical History Relation Comments Diabetes Brother Hypertension Brother Coronary Artery Disease Father Cancer Mother Breast Cancer Parkinsons Sister 1 Hypertension Sister 2 Relation Status Comments Brother Father Mother Sister 1 Sister 2 Social History Tobacco Use Types Packs/Day Years Used Date Smoking Tobacco: Former Comments:Smoked as a teenage r Alcohol Use Standard Drinks/Week Comments Yes 0 (1 standard drink = 0.6 oz pur e alcohol) Occassional PHQ-2 Answer Date Recorded PHQ-2 score 0 12/11/2017 Area Deprivation Index Answer Date Mohsen rded National Score (1-100), lower number is lower ri sk Not on file 03/01/2020 State Score (1-10), lower number is lower risk N ot on file 03/01/2020 Data from: https://www.neighborhoodatlas.medicine.[facility].edu/. Last address used for calculation Not on file 03/01/2020 Comments No Sex and Gender Information Value Date Recorded Sex Assigned at Not on file Legal Sex Female 9:23 AM EDT Gender Identity Not on file Sexual Orientation Not on file Last Filed Vital Signs Vital Sign Reading Time Taken Comments Blood Pressure 131/73 06/01/2020 9:35 AM EST Pulse 73 06/01/2020 9:35 AM EST Temperature 36.2 C (97.2 F) 06/01/2020 9:35 AM EST Respiratory Rate 18 06/01/2020 9:35 AM EST Oxygen Saturation 96% 06/01/2020 9:35 AM EST Inhaled Oxygen Concentration - - Weight 56.3 kg (124 lb 3.2 oz) 06/01/2020 9:35 A M EST Height 157.9 cm (5' 2.17 ) 06/01/2020 9:35 AM ES T Body Mass Index 22.6 06/01/2020 9:35 AM EST Plan of Treatment Health Maintenance Due Date Last Done Comments Anxiety Screening 1963 Depression Screening 1963 DTaP,Tdap,Td Vaccine (1 - Tdap) 1966 Shingrix Vaccine (1 of 2) 1997 Bone Density Screening 2012 RSV Vaccine (1 - 1-dose 75+ series) 2022 Diabetes Screening 06/02/2023 06/01/2020, 12/09/2019 Advance Directive Discussion 03/25/2024 Influenza Vaccine (#1) 2024 0, 12/23/2018, 01/20/2018, Additional history exists Hepatitis C Screening Completed 05/21/2017, 017 Pneumococcal Vaccine: 50+ Completed 01/31/2018, Procedures Procedure Name Priority Date/Time Associated Diagnosis Comments COMPREHENSIVE METABOLIC PANEL Routine 06/01/2020 9:27 AM EST CLL (chronic lymphocytic leukemia) (HCC) Lymphocytosis HEP REMOTE PANEL BL Routine 05/21/2017 1 0:15 AM EST Lymphocytosis from Last 3 Months or Most Recently Relevant to Health Maintenance Results * (ABNORMAL) COMP METABOLIC PANEL (06/01/2020 9:27 AM EST) Pathologist [facility] Protein, Total 6.4 6.3 - 8.0 g/dL 06/01/2020 10:08 AM EST [facility] Albumin 4.3 3.9 - 4.9 g/dL 06/01/2020 10:08 AM EST [facility] Calcium 9.4 8.5 - 10.2 mg/dL 06/01/2020 10:08 AM EST [facility] Bilirubin, Total 0.5 0.2 - 1.3 mg/dL 06/01/2020 10:08 AM EST [facility] Alkaline Phosphatase 66 34 - 123 U/L 06/01/2020 10:08 AM EST [facility] AST 20 13 - 35 U/L 06/01/2020 10:08 AM EST [facility] Glucose 97 74 - 99 mg/dL 06/01/2020 10:08 AM [facility] Comment: The [place] Diabetes Association (ADA) provides guidance for cutoff [...] Standards of Medical Care in Diabetes 2016, [place] Diabetes Association. Diabetes Care. 2016.39(Suppl 1). BUN 32(H) 7 - 21 mg/dL 06/01/2020 10:08 AM [facility] Creatinine 1.12(H) 0.58 - 0.96 mg/dL 06/01/2020 10:08 AM [facility] Sodium 135(L) 136 - 144 mmol/L 06/01/2020 10:08 AM [facility] Potassium 4.5 3.7 - 5.1 mmol/L 06/01/2020 10:08 AM [facility] Chloride 101 97 - 105 mmol/L 06/01/2020 10:08 AM [facility] CO2 26 22 - 30 mmol/L 06/01/2020 10:08 AM [facility] Anion Gap 8(L) 9 - 18 mmol/L 06/01/2020 10:08 AM [facility] ALT 13 7 - 38 U/L 06/01/2020 10:08 AM [facility] eGFR- 58 06/01/2020 10:08 AM [facility] eGFR-All Other Races 48 . 06/01/2020 10:08 AM [facility] Comment: eGFR (Estimated GFR) Units of measure: [...] eGFR may not accurately reflect actual GFR. Blood BLOOD SPECIMEN / Unknown 06/01/2020 9:27 AM EST 06/01/2020 9:30 AM EST us Elizabeth Sullivan PAPER CARRIER.[employer] [facility] Final Re sult Performing Organization Address City/[facility] Co de Phone Number [address] [address] [facility] [address] * HEP REMOTE PANEL BL (05/21/2017 10:15 AM EST) Hep B Core Ab, Total Negative Negative 05/22/2017 11:36 AM EST [facility] Hep C Antibody IA Negative Negative 05/22/2017 11:36 AM EST [facility] HBsAg Negative Negative 05/22/2017 11:36 AM EST [facility] Hep B Surface Ab, Qual Negative Negative 05/22/2017 11:37 AM EST [facility] Comment:NEGATIVE Blood specimen (specimen) BLOOD SPECIMEN / Unknown 05/21/2017 10:15 AM EST 05/21/2017 10:17 AM EST Sachin Perez DO LABORATORY Final Res ult [facility] [address] [place] [address] from Last 3 Months or Most Recently Relevant to Health Maintenance Insurance MEDICARE [employer] Care Teams Production Ski Repairer Relationship Specialty Start Date End Date Dang Shannon MD [address] [place] [address] PCP - General Family Medicine 12/11/17
--- OUTSIDE RECORDS SUMMARY | 2024-10-25 15:25 | XMS_ITS | CCD ---
Author Organization [facility] Care Team Providers Care Credit Manager Name Role Phone MD Evaristo Anguiano Primary Care Provider DO Sherwin Yepez Attending Provider [phone] Evaristo Anguiano Unavailable REQUEST, NONE LISTED Admitting Unavaila ble REQUEST, NONE LISTED Consulting Unavaila ble REQUEST, DR SAUNDERS LISTED Attending Unavaila ble ANNMARIE, DR EVARISTO De Primary Care Unavailable NATALIA PIMENTEL Admitting Unavailable NATALIA PIMENTEL Consulting Unavailable NATALIA PIMENTEL Attending Unavailable ANNMARIE, DR EVARISTO De Primary Care Unavailable ANNMARIE, DR EVARISTO De Primary Care Unavailable ANNMARIE, DR EVARISTO De Consulting Unavailable ANNMARIE, DR EVARISTO De Attending Unavailable ANNMARIE, DR EVARISTO De Admitting Unavailable KRISHAN GONSALEZ Admitting Unavailable KRISHAN GONSALEZ Attending Unavailable TATE, DR JUMANA Lemus Consulting Unavailable ANNMARIE, DR EVARISTO De Primary Care Unavailable KRISHAN GONSALEZ Consulting Unavailable EVARISTO ANGUIANO Primary Care Physician DO Frederick Perez II Attending Provider MD Eugenio Beckett Referring Provider Unavailable MD Evaristo Anguiano Primary Care Provider [phone] DO Frederick Perez II Attending Provider MD Eugenio Beckett Referring Provider Unavailable MD Evaristo Anguiano Primary Care Provider [phone] Papito Tripp Attending Unavailable Papito Tripp Attending Unavailable Evaristo Anguiano MD Primary Care Provider Evaristo Anguiano MD Attending Provider Allergies Allergy Classification Reported Allergen(s) Allergy Type Date of Onset Reaction(s) Facility (20 sources) Amoxicillin; Translations: [Amoxicillin] Drug Allergy 01-29-20 18 Weal (disorder) [facility] (13 sources) Penicillin Drug Allergy Unknown [facility] Other (7 sources) Pseudoephedrine Drug Allergy 03-25-19 18 Unknown [facility] Other (7 sources) Penicillins Allergy to substance 06-13-19 [facility] (7 sources) 12 Hour Decongestant Allergy to substance 06-12-19 [facility] Comment on above: Onset Date: 03/25/19 18 Medications Current Medications Medication Drug Class(es) Dates Sig (Normalized) Sig (Original) aspirin 81 mg oral capsule (19 sources) Platelet Aggregation Inhibitor, Nonsteroidal Anti-inflammatory Drug Start: 05-27-2023 take 1 mg by mouth every twenty-four hours aspirin 81 mg oral capsule mg cap(s), Oral, q24hr, Refills(s) 0, Blood Thinner Start Date: 05/27/23 Status: Ordered Start: 06-16-2021 take 1 capsule by mo uth once daily Aspirin 81 mg Capsule Active 81 MG PO Daily June 16, 2021 12:00am Complies with drug therapy take 1 tablet by sarah every twenty-four hours Aspirin 81 MG 1 tablet Orally Once a day Active calcium carbonate 1500 mg oral tablet (3 sources) Start: 05-27-2023 take 1 mg by mouth once daily calcium (as carbonate) 600 mg oral tablet mg tab(s), Oral, Daily, Refills(s) 0, Indigestion Start Date: 05/27/23 Status: Ordered calcium carbonate 1500 mg / cholecalciferol 0.01 mg oral tablet (9 sources) Vitamin D Start: 10-06-2021 take 1 tablet by mouth twice daily Calcium Carbonate-Vitamin D3 (Calcium 600 + D(3)) 600 mg-10 mcg (400 unit) Tablet Active 1 TAB PO Twice daily October 06, 2021 12:00am Complies with drug therapy [facility] (3 sources) Start: 05-27-2023 take 1 tablet by mouth once daily [facility] 1 tab(s), Oral, Daily, Refill(s) 0, Prophylaxis Start Date: 05/27/23 Status: Ordered Start: 05-27-2023 [facility] Oral, Daily, Refill(s) 0 Start Date: 05/27/23 Status: Ordered losartan potassium 50 mg oral tablet (20 sources) Angiotensin 2 Receptor Abilio Start: 05-26-2024 take 1 tablet by mouth once daily Losartan 50 mg tablet Active 0 .ROUTE .COMPLEX May 26, 2024 2:34pm TAKE 1 TABLET BY MOUTH EVERY DAY FOR 90 DAYS Complies with drug therapy Start: 10-10-2023 take 1 tablet by sarah once daily Losartan Active 0 .ROUTE .COMPLEX October 10, 2023 8:50am TAKE 1 TABLET BY MOUTH EVERY DAY FOR 90 DAYS Start: 07-15-2023 End: 05-26-2024 take 1 tablet by mouth once daily Losartan 25 mg tablet Discontinued 0 .ROUTE .COMPLEX January 06, 2024 8:21am May 26, 2024 2:34pm TAKE 1 TABLET BY MOUTH EVERY DAY FOR 90 DAYS Start: 06-18-2022 End: 07-15-2023 take 1 tablet by mouth once daily Losartan 25 mg Tablet Discontinued 25 MG PO Daily June 18, 2022 12:00am July 15, 2023 12:59pm methylcellulose 2000 mg powder for oral suspension (3 sources) Start: 05-27-2023 take 2 g by mouth twice daily Citrucel 2 g/19 g oral powder 2 gm, Oral, BID, # 507 gm, Refills(s) 3, Pharmacy: [facility]/pharmacy #[id number], 159, cm, 05/27/23 12:05:00 EST, Height/Length Dosing, 50.6, kg, 05/27/23 12:05:00 EST, Weight Dosing Start Date: 05/27/23 Status: Ordered Multivitamin (Multiple Vitamin) Tablet (1 source) Start: 06-16-2021 take 1 tablet by mouth once daily Multivitamin (Multiple Vitamin) Tablet Active 1 TAB PO Daily June 16, 2021 12:00am Multivitamin preparation (18 sources) Start: 06-16-2021 take 1 tablet by mouth once daily Multivitamin Active 1 TAB PO Daily June 16, 2021 12:00am take 1 tablet by mouth once wilber y Multivitamin - 1 tablet Orally Once a day Active Multivitamin Tablet (3 sources) Start: 06-16-2021 take 1 tablet by mouth once daily Multivitamin Tablet Active 1 TAB PO Daily June 16, 2021 12:00am Complies with drug therapy Start: 06-16-2021 take 1 tablet by sarah th once daily Multivitamin Tablet Active 1 TAB PO Daily June 16, 2021 12:00am Start: 06-16-2021 take 1 tablet by sarah th once daily Multivitamin Tablet Active 1 TAB PO Daily June 15, 2021 11:00pm raNITIdine (1 source) Histamine-2 Receptor Antagonist Zantac Active saccharomyces boulardii 250 mg oral capsule (4 sources) Start: 01-02-20 take 1 capsule by mouth once daily Saccharomyces Boulardii (Daily Probiotic (S. Boulardii)) 250 mg capsule Active 250 MG PO Daily January 02, 2024 12:00am Complies with drug therapy valACYclovir 1000 mg oral tablet (1 source) Herpesvirus Nucleoside Analog DNA Polymerase Inhibitor, Herpes Simplex Virus Nucleoside Analog DNA Polymerase Inhibitor, Herpes Zoster Virus Nucleoside Analog DNA Polymerase Inhibitor Start: 09-16-19 Valacyclovir (Valtrex) 1 gram tablet Active 1000 MG PO Every 8 hours September 15, 2024 12:00am Complies with drug therapy Completed/Discontinued Medications Medication Drug Class(es) Dates Sig (Normalized) Sig (Original) acetaminophen 325 mg oral tablet (8 sources) Start: 10-17-2021 End: 06-18-2022 take 2 tablets by mouth every four hours as needed for pain Acetaminophen 325 mg Tablet Discontinued 650 MG PO Q4H as needed for pain October 17, 2021 12:00am June 18, 2022 10:38am Start: 10-17-2021 End: 06-18-2022 take 650 mg by mouth every four hours Acetaminophen Discontinued 650 MG PO Q4H October 17, 2021 12:00am June 18, 2022 10:38am Calcium (16 sources) Phosphate Binder, Calcium Start: 06-16-2021 End: 10-06-2021 take 1 capsule by mouth once daily Calcium 600 mg Capsule Discontinued 600 MG PO Daily June 16, 2021 12:00am October 06, 2021 11:03am Start: 06-16-2021 End: 10-06-2021 take 1 capsule by mouth once daily Calcium 600 mg Capsule Discontinued 600 MG PO Daily June 15, 2021 11:00pm October 06, 2021 10:03am Start: 06-16-2021 End: 10-06-2021 take 600 mg by mouth once daily Calcium Discontinued 6 00 MG PO Daily June 16, 2021 12:00am October 06, 2021 11:03am Calcium + D3 Act greer Cholestyramine (With Sugar) 4 gram powder in packet (2 sources) Start: 01-02-2024 End: 05-26-2024 Cholestyramine (With Sugar) 4 gram powder in packet Discontinued EACH PO Daily as needed January 02, 2024 12:00am May 26, 2024 2:30pm Start: 01-02-2024 End: 05-26-2024 Cholestyramine (With Sugar) 4 gram powder in packet Discontinued EACH PO Daily as needed January 01, 2024 11:00pm May 26, 2024 1:30pm cholestyramine resin 4000 mg powder for oral suspension (5 sources) Bile Acid Sequestrant Start: 01-02-2024 End: 05-26-2024 Cholestyramine (With Sugar) 4 gram powder in packet Discontinued EACH PO Daily as needed January 02, 2024 12:00am May 26, 2024 2:30pm Start: 01-02-2024 Cholestyramine (With Sugar) Active EACH PO Daily January 02, 2024 12:00am Start: 05-27-2023 Questran 4 g/9 g oral powder = 1 packet(s), Oral, Daily, PRN Diarrhea, # 30 EA, Refills(s) 4, Pharmacy: [facility]/pharmacy #[id number], 159, cm, 05/27/23 12:05:00 EST, Height/Length Dosing, 50.6, kg, 05/27/23 12:05:00 EST, Weight Dosing Start Date: 05/27/23 Status: Ordered fluticasone propionate 0.05 mg/actuat metered dose nasal spray (9 sources) Corticosteroid Start: 10-06-2021 End: 06-18-2022 Fluticasone Propionate 50 mcg/actuation spray,suspension Discontinued 2 SPRAY INTRANASAL Daily as needed for Allergy Symptoms October 06, 2021 12:00am June 18, 2022 10:51am hyoscyamine sulfate 0.125 mg oral tablet (5 sources) Start: 05-26-2024 End: 09-11-2024 take 1 tablet by mouth every four hours as needed Hyoscyamine Sulfate 0.125 mg tablet Discontinued 1 TAB PO Every 4 hours May 26, 2024 1:00am September 11, 2024 9:20am Free[employer]Si tablet as needed Orally every 4 hrs; Note: Source Status: Start; Refills: 0; Provider: Annmarie De take 1 tablet by mouth every fou r hours Levsin 0.125 MG 1 tablet as needed Orally every 4 hrs Active methylPREDNISolone 4 mg oral tablet (7 sources) Corticosteroid Start: 06-13-2023 End: 01-02-2024 Methylprednisolone 4 mg tablets,dose pack Discontinued 0 PO per package directions June 13, 2023 12:00am January 02, 2024 7:49am PO PER PKG DIR for 6 days Start: 06-13-2023 End: 01-02-2024 Methylprednisolone Discontin ued 0 PO per package directions June 13, 2023 12:00am January 02, 2024 7:49am PO PER PKG DIR for 6 days Start: 06-13-2023 Methylpredniso lone Active 0 PO per package directions June 13, 2023 12:00am PO PER PKG DIR for 6 days 24 hr metoprolol succinate 50 mg extended release oral tablet (9 sources) beta-Adrenergic Abilio Start: 06-16-2021 End: 01-02-2024 take 1 tablet by mouth once daily Metoprolol Succinate 50 mg tablet extended release 24 hr Discontinued 50 MG PO Daily June 16, 2021 12:00am January 02, 2024 8:33am omeprazole 20 mg delayed release oral capsule (12 sources) Proton Pump Inhibitor Start: 07-18-2023 End: 10-02-2024 Omeprazole 20 mg capsule,delayed release(DR/EC) Discontinued 0 .ROUTE .COMPLEX 90 October 02, 2024 8:05am October 02, 2024 3:17pm TAKE 1 CAPSULE BY MOUTH EVERY DAY 30 MINUTES BEFORE MORNING MEAL Start: 07-18-2023 End: 07-18-2023 take 1 capsule by mouth once daily Omeprazole 20 mg capsule,delayed release(DR/EC) Discontinued 20 MG PO Daily July 18, 2023 12:00am July 18, 2023 4:19pm Start: 07-02-2022 take 1 capsule by [facility] once daily Omeprazole 20 MG 1 capsule 30 minutes before morning meal Orally Once a day for 30 days Jun, Active triamcinolone acetonide 1 mg/ml topical cream (1 source) Corticosteroid Start: 09-11-2024 End: 09-15-2024 Triamcinolone Acetonide 0.1 % cream Discontinued 1 APPLIC TOPICAL Twice daily September 11, 2024 12:00am September 15, 2024 2:40pm Problems Problem Classification Problem Date Documented Da te Episodic/Chronic Abdominal hernia (20 sources) Hiatal hernia; Translations: [Diaphragmatic hernia without obstruction or gangrene] Onset: 4 10-17-2021 Episodic Allergic reactions (10 sources) Contact dermatitis; Translations: [Unspecified contact dermatitis, unspecified cause] 06-13-2023 Episodic Anxiety disorders (20 sources) Anxiety; Translations: [Anxiety disorder, unspecified] Chronic Bacterial infection; unspecified site (13 sources) Bacterial infectious disease; Translations: [Other specified bacterial agents as the cause of diseases classified elsewhere] Episodic Cardiac dysrhythmias (10 sources) Irregular heart beat; Translations: [Cardiac arrhythmia, unspecified] 06-13-2023 Chronic Esophageal disorders (14 sources) Gastroesophageal reflux disease without esophagitis; Translations: [Gastro-esophageal reflux disease without esophagitis] Chronic Essential hypertension (20 sources) Essential hypertension; Translations: [Essential (primary) hypertension] Onset: 3 Chronic Leukemias (20 sources) Chronic lymphoid leukemia, disease; 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] Onset: 3 07-02-2021 Chronic Menopausal disorders (13 sources) Atrophy of vagina; [...] [PARESTHESIA OF SKIN] Onset: 3 Episodic Other non-traumatic joint disorders (5 sources) Pain in right shoulder; Translations: [Right shoulder pain] 01-02-2024 Episodic Other nutritional; endocrine; and metabolic disorders (15 sources) Weight loss; Translations: [Abnormal weight loss] 07-03-2023 Episodic Other nutritional; endocrine; and metabolic disorders (1 source) Abnormal weight loss; Translations: [Abnormal weight loss] Onset: 4 Episodic Other nutritional; endocrine; and metabolic disorders (1 source) Abnormal weight loss; Translations: [Loss of weight] 07-03-2023 Episodic Other nutritional; endocrine; and metabolic disorders (3 sources) Weight decreased; Translations: [Abnormal weight loss] 07-03-2023 Episodic Other screening for suspected conditions (not mental disorders or infectious disease) (3 sources) Encounter for screening mammogram for malignant neoplasm of breast; Translations: [Patient encounter status] Episodic Other skin disorders (1 source) Other hypertrophic disorders of the skin Episodic Other upper respiratory infections (13 sources) Bacterial sinusitis; Translations: [Chronic sinusitis, unspecified] Chronic Peripheral and visceral atherosclerosis (13 sources) Intermittent claudication; Translations: [Peripheral vascular disease, unspecified] Chronic Residual codes; unclassified (2 sources) Family history of diabetes mellitus; Translations: [Family history of diabetes mellitus] 10-19-2024 Episodic Viral infection (2 sources) Herpes zoster; Translations: [Zoster without complications] 09-16-2024 Episodic Results Test Name Value Interpretation Reference Range Facility Ambulatory Visit Summaryon 0 07-22-2024 Ambulatory Visit Summary Ambulatory Visi t Summary MARITZA ESPINO :1945 Visit Date:06/01/2024 Ambulatory Visit Instructions Your Diagnosis Chronic GERD Bloating Altered bowel habits Your Care Team Attending Physician - Qasim PORTER, Papito Jo Primary Care Physician - EVARISTO ANGUIANO MD This Is Your Medications List Contact prescribing physician if questions or concerns aspirin (aspirin 81 mg oral capsule) calcium carbonate (calcium (as carbonate) 600 mg oral tablet) lactobacillus acidophilus (Acidophilus Probiotic Blend) losartan (losartan 50 mg Tab) multivitamin with minerals ([facility]) omeprazole wheat dextrin (Benefiber) Procedures Performed Colonoscopy (07/10/2023), Hiatal hernia (03/25/2021), Colonoscopy (03/25/2017), Elbow (03/25/2013), Gallbladder (08/23/1997), Tonsil. Discharge Vitals Heart Rate (Peripheral) 90 Respiratory Rate 14 Blood Pressure 169/91 Height 159 cm Height 63 in Weight 52 kg Weight 114.64 lb BMI 20.57 Medications What How Much When Instructions Unchanged aspirin (aspirin 81 mg oral capsule) By Mouth Every 24 hours Contact prescribing physician if questions or concerns Unchanged calcium carbonate (calcium (as carbonate) 600 mg oral tablet) By Mouth Every day Contact prescribing physician if questions or concerns Unchanged lactobacillus acidophilus (Acidophilus Probiotic Blend) By Mouth Every day Contact prescribing physician if questions or concerns Unchanged losartan (losartan 50 mg Tab) By Mouth Every day Contact prescribing physician if questions or concerns Unchanged multivitamin with minerals ([facility]) 1 Tablets By Mouth Every day Contact prescribing physician if questions or concerns Unchanged omeprazole By Mouth Every day Contact prescribing physician if questions or concerns Unchanged wheat dextrin (Benefiber) By Mouth 2 times a day Contact prescribing physician if questions or concerns Allergies amoxicillin (Hives) Problems Ongoing - Any problem that you are currently receiving treatment for. Altered bowel habits Bloating Chronic GERD Patient Survey You may receive a survey via text or e-mail asking about your office visit. Please share your experience with us by completing your survey. We appreciate your feedback and thank you for choosing us for your care. Normal [facility] Comprehensive Metabolic Pane sandi 06-10-2024 Albumin [Mass/Vol] 4.4 g/dL Normal 3.5-5.7 [facility] Comment on above: Performed By: #### L DH, CMP, DIFF CBC #### [facility] [address] [place] [address] [place] Albumin/Globulin [Mass ratio] 1.9 {ratio} Normal [facility] Comment on above: Performed By: #### L DH, CMP, DIFF CBC #### [facility] [address] [place] [id number] [place] ALP [Catalytic activity/Vol] 84 U/L Normal 34-104 [facility] Comment on above: Performed By: #### L DH, CMP, DIFF CBC #### [facility] [address] ALT [Catalytic activity/Vol] 16 U/L Normal 7-52 [facility] Comment on above: Performed By: #### L DH, CMP, DIFF CBC #### [facility] [address] Anion gap [Moles/Vol] 9.3 mmol/L Normal 6.0-15.0 [facility] Comment on above: Performed By: #### L DH, CMP, DIFF CBC #### [address] AST [Catalytic activity/Vol] 20 U/L Normal 13-39 [facility] Comment on above: Performed By: #### L DH, CMP, DIFF CBC #### [address] Bilirubin [Mass/Vol] 0.5 mg/dL Normal 0.3-1.0 [facility] Comment on above: Performed By: #### L DH, CMP, DIFF CBC #### [place] [address] [place] Calcium [Mass/Vol] 10.0 mg/dL Normal 8.6-10.3 [facility] Comment on above: Performed By: #### L DH, CMP, DIFF CBC #### [place] [address] [place] Chloride [Moles/Vol] 98 mmol/L Normal 98-107 [facility] Comment on above: Performed By: #### L DH, CMP, DIFF CBC #### [place] [id number] [place] CO2 [Moles/Vol] 33.1 mmol/L High 21.0-31.0 [facility] Comment on above: Performed By: #### L DH, CMP, DIFF CBC #### [place] [address] [place] Creatinine [Mass/Vol] 0.82 mg/dL Normal 0.60-1.20 [facility] Comment on above: Performed By: #### L DH, CMP, DIFF CBC #### [address] Creatinine Clr Calc Pharmacy 45.26 Normal [facility] Comment on above: Performed By: #### L DH, CMP, DIFF CBC #### [facility] [address] [place] [address] [place] GFR/1.73 sq M.predicted MDRD (S/P/Bld) [Vol rate/Area] mL/min/{1.73_m2} Normal [facility] Comment on above: Performed By: #### L DH, CMP, DIFF CBC #### [address] Globulin (S) [Mass/Vol] 2.3 g/dL Normal T he [facility] Comment on above: Performed By: #### L DH, CMP, DIFF CBC #### [address] Glucose [Mass/Vol] 112 mg/dL High 70-100 [facility] Comment on above: Result Comment: [facility] Glucose Reference Range is dependent on time and content of last meal. Glucose of more than 200 mg/dL in a nonstressed, ambulatory subject supports the diagnosis of Diabetes Mellitus. ADA recommended reference range Performed By: #### L DH, CMP, DIFF CBC #### [address] Potassium [Moles/Vol] 4.4 mmol/L Normal 3.5-5.1 [facility] Comment on above: Performed By: #### L DH, CMP, DIFF CBC #### [address] Protein [Mass/Vol] 6.7 g/dL Normal 6.4-8.9 [facility] Comment on above: Performed By: #### L DH, CMP, DIFF CBC #### [address] Sodium [Moles/Vol] 136 mmol/L Normal 136-145 [facility] Comment on above: Performed By: #### L DH, CMP, DIFF CBC #### [address] Urea nitrogen [Mass/Vol] 14 mg/dL Normal 7-25 [facility] Comment on above: Performed By: #### L DH, CMP, DIFF CBC #### [facility] [address] [place] [address] [place] Diff and CBCon 06-10-2024 Anisocytosis Ql (Bld) Moderate Normal [facility] Comment on above: Performed By: #### L DH, CMP, DIFF CBC #### [address] Basophils/100 WBC (Bld) 1 % Normal 0-2 T he [facility] Comment on above: Performed By: #### L DH, CMP, DIFF CBC #### [address] Erythrocyte distribution width (RBC) [Ratio] 13.3 % Normal 11.9-15.3 [facility] Comment on above: Performed By: #### L DH, CMP, DIFF CBC #### [address] Giant Platelet Tally 1 /100{WBC} Normal [facility] Comment on above: Performed By: #### L DH, CMP, DIFF CBC #### [address] Hematocrit (Bld) [Volume fraction] 45.4 % Normal 34.0-46.4 [facility] Comment on above: Performed By: #### L DH, CMP, DIFF CBC #### [address] Hemoglobin (Bld) [Mass/Vol] 15.3 g/dL Normal 11.8-15.4 [facility] Comment on above: Performed By: #### L DH, CMP, DIFF CBC #### [address] Large Platelets Slight Normal [facility] Comment on above: Result Comment: PERF ORMED BY: [place] [address] PATHOLOGIST [employer] CRISTHIAN BHATIA M.D. Performed By: #### L DH, CMP, DIFF CBC #### [address] Lymphocytes/100 WBC (Bld) 64 % High 18-42 [facility] Comment on above: Performed By: #### L DH, CMP, DIFF CBC #### [address] MCH (RBC) [Entitic mass] 30.1 pg Normal 24.7-34.3 [facility] Comment on above: Performed By: #### L DH, CMP, DIFF CBC #### [address] MCV (RBC) [Entitic vol] 89.7 fL Normal 80-100 [facility] Comment on above: Performed By: #### L DH, CMP, DIFF CBC #### [address] Mean Corpuscular HGB Conc 33.6 g/dL Normal 32.0-35.0 [facility] Comment on above: Performed By: #### L DH, CMP, DIFF CBC #### [address] Microcytosis Moderate Normal [facility] Comment on above: Performed By: #### L DH, CMP, DIFF CBC #### [place] [address] [place] Monocytes/100 WBC (Bld) 1 % Low 2-11 [facility] Comment on above: Performed By: #### L DH, CMP, DIFF CBC #### [address] Ovalocytes Slight Normal [facility] Comment on above: Performed By: #### L DH, CMP, DIFF CBC #### [address] Platelet Estimate Normal Normal Normal [facility] Comment on above: Performed By: #### L DH, CMP, DIFF CBC #### [address] Platelet mean volume (Bld) [Entitic vol] 9.9 fL Normal 6.3-10.7 [facility] Comment on above: Performed By: #### L DH, CMP, DIFF CBC #### [address] Platelet Morphology Normal Normal Normal [facility] Comment on above: Performed By: #### L DH, CMP, DIFF CBC #### [address] Platelets (Bld) [#/Vol] 264 10*3/uL Normal 150-450 [facility] Comment on above: Performed By: #### L DH, CMP, DIFF CBC #### [address] Poikilocytosis Slight Normal [facility] Comment on above: Performed By: #### L DH, CMP, DIFF CBC #### [address] [address] RBC (Bld) [#/Vol] 5.06 10*6/uL High 3.60-5.00 [facility] Comment on above: Performed By: #### L DH, CMP, DIFF CBC #### [address] Reactive Lymphocytes 2 % Normal 0-12 [facility] Comment on above: Performed By: #### L DH, CMP, DIFF CBC #### [address] Segmented neutrophils/100 WBC (Bld) 32 % Low 50-70 [facility] Comment on above: Performed By: #### L DH, CMP, DIFF CBC #### [address] WBC (Bld) [#/Vol] 19.0 10*3/uL High 3.8-11.6 [facility] Comment on above: Performed By: #### L DH, CMP, DIFF CBC #### [address] [place] [address] [facility] LDH Lactate Dehydrogenaseon 06-10-2024 LDH Lactate Dehydrogenase 159 U/L Normal 140-271 [facility] Comment on above: Result Comment: PERF ORMED BY: [address] [place] [address] PATHOLOGIST [employer] CRISTHIAN BHATIA M.D. Performed By: #### L DH, CMP, DIFF CBC #### [facility] [address] Gastroenterology Office/Clin ic Noteon 06-01-2024 Gastroenterology Office/Clinic Note Gastroenterology Office/Clinic Note Chief Complaint GERD HPI Staff EST, 79 year old female who presents today for a sick call for complaints of acid reflux. -taking omeprazole 20mg burping and gas, omeprazole helps. Denies Blood Thinners Denies GLP-1 Agonists Last office visit w/ Dr Tripp History of Present Illness PT feels well had some acid reflux and gas after colonoscopy but this resolved pt responded to Questran pt trying to eat weight is stable Assessment/Plan 1. Altered bowel habits (R19.4: Change in bowel habit) continue Citrucel and Questran hold on repeating colonoscopy since she is not interested and weight is stable Colonoscopy w/ Dr Tripp 07/10/23 Findings Solid and liquid stool throughout the whole colon Diverticulosis throughout the whole colon status post random colon biopsies Internal hemorrhoids Normal examined terminal ileum Impression and Plan Diagnosis: Poor bowel prep Diverticulosis Internal hemorrhoids. Recommendations: Repeat colonoscopy:: As previously scheduled for screening purposes since this colonoscopy is not considered as a good test for polyp detection given poor bowel prep Final Diagnosis (Verified) COLON, RANDOM, BIOPSY: - Benign colonic mucosa with lymphoid aggregates. - No evidence of chronic, active or microscopic colitis identified. EGD 07/31/21 Post operative diagnosis: Hiatal Hernia Pathological diagnosis: Stomach, biopsy -Gastric mucosa with minimal chronic inflammation -No morphologic evidence of h pylori Review of Systems All systems reviewed, negative except as mentioned above Physical Exam Vitals & Measurements HR: 90(Peripheral) RR: 14 BP: 169/91 HT: 63 in HT: 159 cm WT: 52 kg WT: 114.64 lb BMI: 20.57 I have reviewed HPI staff note, most recent labs and imaging, I agree with the above documentation with the following additions/exceptions : PT is doing symptoms are under control with PPI bloating is better with probiotics General: alert, no acute distress HEENT: atraumatic normocephalic Cardiovascular: regular rate and rhythm, normal peripheral perfusion Respiratory: Lungs CTA, respirations non labored Extremities: no deformity, no trauma Abdomen: Benign, soft, nontender nondistended Assessment/Plan 1. Chronic GERD (K21.9: Gastro-esophageal reflux disease without esophagitis) 2. Bloating (R14.0: Abdominal distension (gaseous)) 3. Altered bowel habits (R19.4: Change in bowel habit) Orders: cholestyramine, = 1 packet(s), Oral, Daily, PRN Diarrhea, # 30 EA, Refills(s) 4, Pharmacy: [facility]/pharmacy #[id number], 159, cm, 05/27/23 12:05:00 EST, Height/Length Dosing, 50.6, kg, 05/27/23 12:05:00 EST, Weight Dosing methylcellulose, 2 gm, Oral, BID, # 507 gm, Refills(s) 3, Pharmacy: [facility]/pharmacy #[id number], 159, cm, 05/27/23 12:05:00 EST, Height/Length Dosing, 50.6, kg, 05/27/23 12:05:00 EST, Weight Dosing Continue omeprazole 40 mg daily Patient stopped Questran. Continue to monitor Patient not interested in repeating colonoscopy Continue probiotics from [id number] (align) Follow-up as needed Follow-up No qualifying data available Problem List/Past Medical History Ongoing Altered bowel habits Bloating Chronic GERD Historical No qualifying data Procedure/Surgical History Colonoscopy (07/10/2023), Hiatal hernia (03/25/2021), Colonoscopy (03/25/2017), Elbow (03/25/2013), Gallbladder (08/23/1997), Tonsil. Medications Acidophilus Probiotic Blend, Oral, Daily aspirin 81 mg oral capsule, Oral, q24hr Benefiber, Oral, BID calcium (as carbonate) 600 mg oral tablet, Oral, Daily Centrum Women's, 1 tab(s), Oral, Daily losartan 50 mg Tab, Oral, Daily omeprazole, Oral, Daily Allergies amoxicillin (Hives) Social History Tobacco Never (less than 100 in lifetime) Tobacco Use:., 06/01/2024 Never (less than 100 in lifetime) Tobacco Use:., 08/14/2023 Never (less than 100 in lifetime) Tobacco Use:., 05/27/2023 Family History Family history is negative Immunizations Vaccine Date Status Comments influenza virus vaccine, inactivated 12/25/2022 Recorded SARS-CoV-2 (COVID-19) [id number] 02/13/2022 Recorded influenza virus vaccine, inactivated 12/13/2021 [...] influenza virus vaccine, inactivated 01/21/2017 Recorded Normal [facility] Comment on above: Result Comment: Elec tronically Signed By: Qasim PORTER, Papito Jo\.br\Date and Time Signed: 06/01/24 13:22 EDT Gastroenterology Office/Clin ic Noteon 08-14-2023 Gastroenterology Office/Clinic [...] Diarrhea, # 30 EA, Refills(s) 4, Pharmacy: [facility]/pharmacy #[id number], 159, cm, 05/27/23 12:05:00 EST, Height/Length Dosing, 50.6, kg, 05/27/23 12:05:00 EST, Weight Dosing methylcellulose, 2 gm, Oral, BID, # 507 gm, Refills(s) 3, Pharmacy: [facility]/pharmacy #[id number], 159, cm, 05/27/23 12:05:00 EST, Height/Length [...] virus vaccine, inactivated 12/25/2022 Recorded SARS-CoV-2 (COVID-19) [id number] 02/13/2022 Recorded influenza virus vaccine, inactivated 12/13/2021 [...] virus vaccine, inactivated 01/21/2017 Recorded Normal [facility] Comment on above: Result Comment: Elec tronically Signed By: Qasim PORTER, Papito Jo\.br\Date and Time Signed: 08/14/23 13:41 EDT Giardia lamblia Ag [Presence ] in Stool by Immunoassayon 06-28-2023 G. lamblia Ag IA Ql (Stl) Negative Negative [facility] Comment on above: Performed at: [facility] [address] [id number] Director: Quique Yee PhD, Phone: [phone] No Panel Informationon 06-27 Clostridium difficile (PCR)(LAB) Negative NEGATIVE [facility] Rotavirus Antigen (LAB) Negative Negative [facility] Comment on above: Performed at: [facility] [address] [id number] Director: Quique Yee PhD, Phone: [phone] Alanine aminotransferase [En zymatic activity/volume] in Serum or PlasmaOrdered By: Nida Crain on 06-12-2023 ALT [Catalytic activity/Vol] 14 U/L 7-52 [facility] Albumin [Mass/volume] in Ser um or Plasma by Bromocresol green (BCG) dye binding methoOrdered By: Nida Crain on 06-12-2023 Albumin BCG dye [Mass/Vol] 4.3 g/dL 3.5-5.7 [facility] Alkaline phosphatase [Enzyma tic activity/volume] in Serum or PlasmaOrdered By: Nida Crain on 06-12-2023 ALP [Catalytic activity/Vol] 71 U/L 34-104 [facility] Anisocytosis LM Ql (Bld)Orde red By: Nida Crain on 06-12-2023 Anisocytosis Ql (Bld) Slight [facility] Aspartate aminotransferase [ Enzymatic activity/volume] in Serum or PlasmaOrdered By: Nida Crain on 06-12-2023 AST [Catalytic activity/Vol] 20 U/L 13-39 [facility] Basophils Auto (Bld) [#/Vol] Ordered By: Nida Crain on 06-12-2023 Basophils (Bld) [#/Vol] N/A [facility] Basophils/100 WBC Auto (Bld) Ordered By: Nida Crain on 06-12-2023 Basophils/100 WBC (Bld) N/A [facility] Bilirubin.total [Mass/volume ] in Serum or PlasmaOrdered By: Nida Crain on 06-12-2023 Bilirubin [Mass/Vol] 0.4 mg/dL 0.3-1.0 [facility] Calcium [Mass/volume] in Ser um or PlasmaOrdered By: Nida Crain on 06-12-2023 Calcium [Mass/Vol] 9.5 mg/dL 8.6-10.3 [facility] Carbon dioxide, total [Moles /volume] in Serum or PlasmaOrdered By: Nida Crain on 06-12-2023 CO2 [Moles/Vol] 28.3 mmol/L 21.0-31.0 [facility] Chloride [Moles/volume] in S filemon or PlasmaOrdered By: Nida Crain on 06-12-2023 Chloride [Moles/Vol] 101 mmol/L 98-107 [facility] Creatinine [Mass/volume] in Serum or PlasmaOrdered By: Nida Crain on 06-12-2023 Creatinine [Mass/Vol] 0.87 mg/dL 0.60-1.20 [facility] Eosinophils Auto (Bld) [#/Vo l]Ordered By: Nida Crain on 06-12-2023 Eosinophils (Bld) [#/Vol] N/A [facility] Eosinophils/100 WBC Auto (Bl d)Ordered By: Nida Crain on 06-12-2023 Eosinophils/100 WBC (Bld) N/A [facility] Eosinophils/100 WBC Manual c nt (Bld)Ordered By: Nida Crain on 06-12-2023 Eosinophils/100 WBC (Bld) 1 % 1-3 [facility] Erythrocyte distribution wid th Auto (RBC) [Ratio]Ordered By: Nida Crain on 06-12-2023 Erythrocyte distribution width (RBC) [Ratio] 13.2 % 11.9-15.3 [facility] Giant platelets/100 leukocyt es [Ratio] in Blood by Manual countOrdered By: Nida Crain on 06-12-2023 Giant platelets/100 WBC Manual cnt (Bld) [Ratio] 1 /100{WBC} [facility] Globulin Calc (S) [Mass/Vol] Ordered By: Nida Crain on 06-12-2023 Globulin (S) [Mass/Vol] 1.9 g/dL [facility] Glucose [Mass/volume] in Ser um or PlasmaOrdered By: Nida Crain on 06-12-2023 Glucose [Mass/Vol] 122 mg/dL 70-100 [facility] Comment on above: ADA recommended refe rence rangeRandom Glucose Reference Range is dependent on time and content of last meal. Glucose of more than 200 mg/dL in a nonstressed, ambulatory subject supports the diagnosis of Diabetes Mellitus. Hematocrit Auto (Bld) [Volum e fraction]Ordered By: Nida Crain on 06-12-2023 Hematocrit (Bld) [Volume fraction] 43.6 % 34.0-46.4 [facility] Hemoglobin [Mass/volume] in BloodOrdered By: Nida Crain on 06-12-2023 Hemoglobin (Bld) [Mass/Vol] 14.2 g/dL 11.8-15.4 [facility] Lactate dehydrogenase [Enzym atic activity/volume] in Serum or Plasma by Lactate to pyOrdered By: Nida Crain on 06-12-2023 LDH Lactate to pyruvate reaction [Catalytic activity/Vol] 144 U/L 140-271 [facility] Leukocytes [#/volume] correc jose for nucleated erythrocytes in Blood by Automated counOrdered By: Nida Crain on 06-12-2023 WBC corrected for nucl RBC Auto (Bld) [#/Vol] 16.8 10*3/uL 3.8-11.6 [facility] Lymphocytes Auto (Bld) [#/Vo l]Ordered By: Nida Crain on 06-12-2023 Lymphocytes (Bld) [#/Vol] N/A [facility] Lymphocytes/100 WBC Auto (Bl d)Ordered By: Nida Crain on 06-12-2023 Lymphocytes/100 WBC (Bld) N/A [facility] Lymphocytes/100 WBC Manual c nt (Bld)Ordered By: Nida Crain on 06-12-2023 Lymphocytes/100 WBC (Bld) 78 % 18-42 [facility] MCH Auto (RBC) [Entitic mass ]Ordered By: Nida Crain on 06-12-2023 MCH (RBC) [Entitic mass] 29.7 pg 24.7-34.3 [facility] MCHC Auto (RBC) [Mass/Vol]Or dered By: Nida Crain on 06-12-2023 MCHC (RBC) [Mass/Vol] 32.6 g/dL 32.0-35.0 [facility] MCV Auto (RBC) [Entitic vol] Ordered By: Nida Crain on 06-12-2023 MCV (RBC) [Entitic vol] 91.0 fL 80-100 [facility] Microcytes LM Ql (Bld)Ordere d By: Nida Crain on 06-12-2023 Microcytes Ql (Bld) Slight [facility] Monocytes Auto (Bld) [#/Vol] Ordered By: Nida Crain on 06-12-2023 Monocytes (Bld) [#/Vol] N/A [facility] Monocytes/100 WBC Auto (Bld) Ordered By: Nida Crain on 06-12-2023 Monocytes/100 WBC (Bld) N/A [facility] Monocytes/100 WBC Manual cnt (Bld)Ordered By: Nida Crain on 06-12-2023 Monocytes/100 WBC (Bld) 1 % 2-11 [facility] Neutrophils Auto (Bld) [#/Vo l]Ordered By: Nida Crain on 06-12-2023 Neutrophils (Bld) [#/Vol] N/A [facility] Neutrophils/100 WBC Auto (Bl d)Ordered By: Nida Crain on 06-12-2023 Neutrophils/100 WBC (Bld) N/A [facility] No Panel InformationOrdered By: Nida Crain on 06-12-2023 Estimated GFR (CKD-EPI) > 60.0 mL/Min [facility] Creatinine Clearance (Chem 43.51 [facility] Nucleated erythrocytes [Pres ence] in Blood by Automated countOrdered By: Nida Crain on 06-12-2023 Nucleated RBC Auto Ql (Bld) N/A [facility] Platelet adequacy [Presence] in Blood by Light microscopyOrdered By: Nida Crain on 06-12-2023 Platelets LM Ql (Bld) Normal Normal [facility] Platelet mean volume Auto (B ld) [Entitic vol]Ordered By: Nida Crain on 06-12-2023 Platelet mean volume (Bld) [Entitic vol] 9.5 fL 6.3-10.7 [facility] Platelet morphology finding [Identifier] in BloodOrdered By: Nida Crain on 06-12-2023 Platelet morphology finding Nom (Bld) Normal Normal [facility] Platelets Auto (Bld) [#/Vol] Ordered By: Nida Crain on 06-12-2023 Platelets (Bld) [#/Vol] 270 10*3/uL 150-450 [facility] Potassium [Moles/volume] in Serum or PlasmaOrdered By: Nida Crain on 06-12-2023 Potassium [Moles/Vol] 4.4 mmol/L 3.5-5.1 [facility] Protein [Mass/volume] in Ser um or PlasmaOrdered By: Nida Crain on 06-12-2023 Protein [Mass/Vol] 6.2 g/dL 6.4-8.9 [facility] RBC Auto (Bld) [#/Vol]Ordere d By: Nida Crain on 06-12-2023 RBC (Bld) [#/Vol] 4.79 10*6/uL 3.60-5.00 [facility] RBC morphologyOrdered By: Blanca Crain on 06-12-2023 RBC morphology finding Nom (Bld) Normal Normal [facility] Segmented neutrophils/100 WB C Manual cnt (Bld)Ordered By: Nida Crain on 06-12-2023 Segmented neutrophils/100 WBC (Bld) 19 % 50-70 [facility] Serum or plasma albumin/glob ulin mass ratioOrdered By: Nida Crain on 06-12-2023 Albumin/Globulin [Mass ratio] 2.3 {ratio} [facility] Serum or plasma anion gap de terminationOrdered By: Nida Crain on 06-12-2023 Anion gap [Moles/Vol] 14.1 mmol/L 6.0-15.0 [facility] Sodium [Moles/volume] in Ser um or PlasmaOrdered By: Nida Crain on 06-12-2023 Sodium [Moles/Vol] 139 mmol/L 136-145 [facility] Urea nitrogen [Mass/volume] in Serum or PlasmaOrdered By: Nida Crain on 06-12-2023 Urea nitrogen [Mass/Vol] 20 mg/dL 7-25 [facility] Variant lymphocytes/100 WBC Manual cnt (Bld)Ordered By: Nida Crain on 06-12-2023 Variant lymphocytes/100 WBC (Bld) 1 % 0-12 [facility] WBC Auto (Bld) [#/Vol]Ordere d By: Nida Crain on 06-12-2023 WBC (Bld) [#/Vol] 16.8 10*3/uL 3.8-11.6 [facility] IMMUNOFIXATION ELEC, PROTEIN ELECon 07-09-2022 Albumin [Mass/Vol] 3.7 g/dL Normal 2.9-4.4 [facility] Comment on above: Performed By: #### V ITB12 #### [facility] [address] [address] [address] Mary Herzog Albumin/Globulin [Mass ratio] 1.5 {ratio} Normal 0.7-1.7 [facility] Comment on above: Performed By: #### V ITB12 #### [facility] [address] [address] [address] Mary Herzog Bsdjo-3-Sqamduam 0.3 g/dL Normal 0.0-0.4 [facility] Comment on above: Performed By: #### V ITB12 #### [facility] [address] [address] [address] Mary Herzog Gzvml-9-Oljesbxq 0.8 g/dL Normal 0.4-1.0 [facility] Comment on above: Performed By: #### V ITB12 #### [facility] [address] [address] [address] Mary Herzog Beta Globulin 0.9 g/dL Normal 0.7-1.3 [facility] Comment on above: Performed By: #### V ITB12 #### [facility] [address] [place] [address] Dr. Mary Herzog Gamma Globulin 0.6 g/dL Normal 0.4-1.8 [facility] Comment on above: Performed By: #### V ITB12 #### [facility] [address] [place] [address] Dr. Mary Herzog Globulin (S) [Mass/Vol] 2.6 g/dL Normal 2.2-3.9 [facility] Comment on above: Performed By: #### V ITB12 #### [facility] [address] [place] [address] Dr. Mary Herzog Immunofixation Result, Serum Comment Normal [facility] Comment on above: Result Comment: No m onoclonality detected. Performed By: #### V ITB12 #### [facility] [address] [place] [address] Dr. Mary Herzog Immunoglobulin A, Qn, Serum 102 mg/dL Normal 64-422 [facility] Comment on above: Performed By: #### V ITB12 #### [facility] [address] [place] [address] Dr. Mary Herzog Immunoglobulin G, Qn, Serum 635 mg/dL Normal 586-1602 [facility] Comment on above: Performed By: #### V ITB12 #### [facility] [address] [place] [address] Dr. Mary Herzog Immunoglobulin M, Qn, Serum 125 mg/dL Normal 26-217 [facility] Comment on above: Performed By: #### V ITB12 #### [facility] [address] [place] [address] Dr. Mary Herzog M-Nilesh Not Observed Normal Not Observed [facility] Comment on above: Performed By: #### V ITB12 #### [facility] [address] [place] [address] Dr. Mary Herzog PDF . Normal [facility] Comment on above: Performed By: #### V ITB12 #### [facility] [address] [place] [address] Dr. Mary Herzog Please note: Comment Normal [facility] Comment on above: Result Comment: Prot ein electrophoresis scan will follow via computer, mail, or director of exhibits delivery. Performed By: #### V ITB12 #### [facility] [address] [place] [address] Dr. Mary Herzog Protein [Mass/Vol] 6.3 g/dL Normal 6.0-8.5 [facility] Comment on above: Performed By: #### V ITB12 #### [facility] [address] [place] [address] Dr. Mary Herzog VITAMIN B6on 07-09-2022 Vitamin B6 29.2 ug/L Normal 3.4-65.2 [facility] Comment on above: Result Comment: Defi ciency: <3.4 Marginal: 3.4 - 5.1 Adequate: >5.1 Performed By: #### V ITAB6 #### [facility] [address] [place] [address] Dr. Mary Herzog COPPER, SERUM or PLASMAon Copper, Serum 136 ug/dL Normal 80-158 [facility] Comment on above: Result Comment: Dete ction Limit = 5 Performed By: #### V ITB12 #### [facility] [address] [place] [address] Dr. Mary Herzog MO COMPREHENSIVE PROFILEon 07-07-2022 Anti-Centromere B Antibodies <0.2 Normal 0.0-0.9 [facility] Comment on above: Performed By: #### V ITB12 #### [facility] [address] [place] [address] Dr. Mary Herzog Anti-DNA (DS) Ab Qn 1 IU/mL Normal 0-9 [facility] Comment on above: Result Comment: Nega tive <5 Equivocal 5 - 9 Positive >9 Performed By: #### V ITB12 #### [facility] [address] [place] [address] Dr. Mary Herzog Anti-Mary-1 <0.2 Normal 0.0-0.9 [facility] Comment on above: Performed By: #### V ITB12 #### [facility] [address] [place] [address] Dr. Mary Herzog Antichromatin Antibodies <0.2 Normal 0.0-0.9 [facility] Comment on above: Performed By: #### V ITB12 #### [facility] [address] [place] [address] Dr. Mary Herzog ANTIRIBOSOMAL P AB <0.2 Normal 0.0-0.9 [facility] Comment on above: Performed By: #### V ITB12 #### [facility] [address] [place] [address] Dr. Mary Herzog Antiscleroderma-70 Antibodies <0.2 Normal 0.0-0.9 [facility] Comment on above: Performed By: #### V ITB12 #### [facility] [address] [place] [address] Dr. Mary Herzog COMMENT Comment Normal [facility] Comment on above: Result Comment: Auto antibody Disease Association Condition Frequency Antinuclear Antibody, SLE, mixed connective Direct (MO-D) tissue diseases dsDNA SLE 40 - 60% Chromatin Drug induced SLE 90% SLE 48 - 97% SSA (Ro) SLE 25 - 35% Sjogren's Syndrome 40 - 70% Lupus 100% SSB (La) SLE 10% Sjogren's Syndrome 30% Sm (anti-Carlson) SLE 15 - 30% SENIOR STATISTICIAN Mixed Connective Tissue Disease 95% (U1 nRNP, SLE 30 - 50% anti-ribonucleoprotein) Polymyositis and/or Dermatomyositis 20% Scl-70 (antiDNA Scleroderma (diffuse) 20 - 35% topoisomerase) Crest 13% Mary-1 Polymyositis and/or Dermatomyositis 20 - 40% Centromere B Scleroderma - Crest variant 80% Ribosomal P SLE 10 - 20% Performed By: #### V ITB12 #### [facility] [address] [place] [address] Dr. Mary Herzog SENIOR STATISTICIAN Antibodies 0.2 AI Normal 0.0-0.9 [facility] Comment on above: Performed By: #### V ITB12 #### [facility] [address] [place] [address] Dr. Mary Buitragoogrmodesta'jodi Anti-SS-A <0.2 Normal 0.0-0.9 [facility] Comment on above: Performed By: #### V ITB12 #### [facility] [address] [place] [address] Dr. Mary Buitragoogrmodesta'jodi Anti-SS-B <0.2 Normal 0.0-0.9 [facility] Comment on above: Performed By: #### V ITB12 #### [facility] [address] [place] [address] Dr. Mary Carlson Antibodies <0.2 Normal 0.0-0.9 [facility] Comment on above: Performed By: #### V ITB12 #### [facility] [address] [place] [address] Dr. Yilan Herzog Carlson/SENIOR STATISTICIAN Antibodies <0.2 Normal 0.0-0.9 [facility] Comment on above: Performed By: #### V ITB12 #### [facility] [address] [place] [address] Dr. Mary Herzog CBC W MANUAL DIFFon 07-07-19 23 ATYPICAL LYMPH # Normal [facility] Comment on above: Performed By: #### C BCMAN #### [facility] [address] [place] [address] Dr. Mary Herzog ATYPICAL LYMPH % Normal [facility] Comment on above: Performed By: #### C BCMAN #### [facility] [address] [place] [address] Dr. Mary Herzog BAND # Normal 0.0-0.3 [facility] Comment on above: Performed By: #### C BCMAN #### [facility] [address] [place] [address] Dr. Mary Herzog BAND % Normal 0-5 [facility] Comment on above: Performed By: #### C BCMAN #### [facility] [address] [place] [address] Dr. Mary Herzog BASOM # 0.00 103/ul Normal 0.00-0.10 [facility] Comment on above: Performed By: #### C BCMAN #### [facility] [address] [place] [address] Dr. Mary Herzog BASOM % 0.0 % Critically low 0.2-2.0 [facility] Comment on above: Performed By: #### C BCMAN #### [facility] [address] [place] [address] Dr. Mary Herzog BLAST # Normal [facility] Comment on above: Performed By: #### C BCMAN #### [facility] [address] [place] [address] Dr. Mary Herzog BLAST % Normal [facility] Comment on above: Performed By: #### C BCMAN #### [facility] [address] [place] [address] Dr. Mary Herzog CORRECTED WBC Normal 4.0-11.0 [facility] Comment on above: Performed By: #### C BCCORY #### [facility] [address] [address] [address] Mary Herzog EOS # 0.49 103/ul Normal 0.00-0.70 [facility] Comment on above: Performed By: #### C BCCORY #### [facility] [address] [address] [address] Mary Herzog EOS% 3.0 % Normal 0.9-7.0 [facility] Comment on above: Performed By: #### C BCCORY #### [facility] [address] [address] [address] Mary Herzog HCT 45.1 % Normal 36.0-48.0 [facility] Comment on above: Performed By: #### C BCCORY #### [facility] [address] [place] [address] Dr. Mary Herzog HGB 14.5 g/dl Normal 12.0-16.0 [facility] Comment on above: Performed By: #### C BRODY #### [facility] [address] [address] [address] Mary Herzog LYMPHM # 10.89 103/ul Critically high 1.20-3.80 [facility] Comment on above: Performed By: #### C BRODY #### [facility] [address] [address] [address] Mary Herzog LYMPHM% 66.0 % Critically high 20.5-60.0 [facility] Comment on above: Performed By: #### C BCMAN #### [facility] [address] [address] [address] Mary Herzog MCH 29.1 pg Normal 26.7-34.0 [facility] Comment on above: Performed By: #### C BCCORY #### [facility] [address] [address] [address] Mary Herzog MCHC 32.2 g/dl Normal 29.9-35.2 [facility] Comment on above: Performed By: #### C BCCORY #### [facility] [address] [place] [address] Dr. Mary Herzog MCV 90.4 fL Normal 81.0-99.0 [facility] Comment on above: Performed By: #### C BCMAN #### [facility] [address] [place] [address] Dr. Mary Herzog METAMYELOCYTE # Normal [facility] Comment on above: Performed By: #### C BCMAN #### [facility] [address] [place] [address] Dr. Mary Herzog METAMYELOCYTE % Normal [facility] Comment on above: Performed By: #### C BRODY #### [facility] [address] [place] [address] Dr. Mary Herzog MONOM# 0.82 103/ul Critically high 0.30-0.80 [facility] Comment on above: Performed By: #### C BRODY #### [facility] [address] [place] [address] Dr. Mary Herzog MONOM% 5.0 % Normal 1.7-12.0 [facility] Comment on above: Performed By: #### C BRODY #### [facility] [address] [place] [address] Dr. Mary Herzog MPV 10.6 fL Normal 9.5-13.5 [facility] Comment on above: Performed By: #### C BRODY #### [facility] [address] [place] [address] Dr. Mary Herzog MYELOCYTE # Normal [facility] Comment on above: Performed By: #### C BRODY #### [facility] [address] [place] [address] Dr. Mary Herzog MYELOCYTE % Normal [facility] Comment on above: Performed By: #### C BRODY #### [facility] [address] [place] [address] Dr. Mary Herzog NRBC Normal [facility] Comment on above: Performed By: #### C BRODY #### [facility] [address] [place] [address] Dr. Mary Herzog PLT 277 103/ul Normal 150-450 [facility] Comment on above: Performed By: #### C BRODY #### [facility] [address] [address] [address] Mary Herzog RBC 4.99 106/ul Normal 4.20-5.40 [facility] Comment on above: Performed By: #### C BRODY #### [facility] [address] [address] [address] Mary Herzog RDW 12.9 % Normal 11.0-15.0 [facility] Comment on above: Performed By: #### C BRODY #### [facility] [address] [address] [address] Mary Herzog SEG # 4.29 103/ul Normal 1.40-6.50 [facility] Comment on above: Performed By: #### C BRODY #### [facility] [address] [address] [address] Mary Herzog SEG % 26.0 % Critically low 43.0-75.0 [facility] Comment on above: Performed By: #### C BRODY #### [facility] [address] [address] [address] Mary Herzog WBC 16.5 103/ul Critically high 4.0-11.0 [facility] Comment on above: Performed By: #### C BRODY #### [facility] [address] [address] [address] Mary Herzog GLYCOHEMOGLOBIN A1Con 2022 ADA RECOMMENDATION SEE BELOW Normal [facility] Comment on above: Result Comment: ADA RECOMMENDED LIMIT 4.0 - 6.0 ADA THERAPEUTIC TARGET < 7.0 ACTION SUGGESTED > 7.0 Performed By: #### D ATA1C #### [facility] [address] [address] [address] Mary Herzog Glucose [Mass/Vol] 117 mg/dL Normal [facility] Comment on above: Performed By: #### D ATA1C #### [facility] [address] [address] [address] Mary Herzog HbA1c (Bld) [Mass fraction] 5.7 % Normal 4.5-6.2 [facility] Comment on above: Performed By: #### D ATA1C #### [facility] [address] [place] [address] Dr. Mary Herzog PROF 14(COMP METB)on 023 Albumin [Mass/Vol] 3.7 g/dL Normal 3.4-5.0 [facility] Comment on above: Performed By: #### C MP, TSH #### [facility] [address] [place] [address] Dr. Mary Herzog Albumin/Globulin [Mass ratio] 1.1 {ratio} Normal [facility] Comment on above: Performed By: #### C MP, TSH #### [facility] [address] [place] [address] Dr. Mary Herzog ALP [Catalytic activity/Vol] 80 U/L Normal 46-116 [facility] Comment on above: Performed By: #### C MP, TSH #### [facility] [address] [place] [address] Dr. Mary Herzog ALT [Catalytic activity/Vol] 24 U/L Normal 14-59 [facility] Comment on above: Performed By: #### C MP, TSH #### [facility] [address] [place] [address] Dr. Mary Herzog Anion gap [Moles/Vol] 12.6 mmol/L Normal [facility] Comment on above: Performed By: #### C MP, TSH #### [facility] [address] [place] [address] Dr. Mary Herzog AST [Catalytic activity/Vol] 21 U/L Normal 15-37 [facility] Comment on above: Performed By: #### C MP, TSH #### [facility] [address] [place] [address] Dr. Mary Herzog Bilirubin [Mass/Vol] 0.5 mg/dL Normal 0.2-1.0 [facility] Comment on above: Performed By: #### C MP, TSH #### [facility] [address] [place] [address] Dr. Mary Herzog Calcium [Mass/Vol] 9.4 mg/dL Normal 8.5-10.1 [facility] Comment on above: Performed By: #### C MP, TSH #### [facility] [address] [place] [address] Dr. Mary Herzog Chloride [Moles/Vol] 104 mmol/L Normal 98-107 [facility] Comment on above: Performed By: #### C MP, TSH #### [facility] [address] [address] [address] Mary Herzog CO2 [Moles/Vol] 29.5 mmol/L Normal 21.0-32.0 [facility] Comment on above: Performed By: #### C MP, TSH #### [facility] [address] [place] [address] Dr. Mary Herzog Creatinine [Mass/Vol] 1.03 mg/dL Critically high 0.55-1.02 [facility] Comment on above: Performed By: #### C MP, TSH #### [facility] [address] [place] [address] Dr. Mary Herzog EGFR-AF INDONESIAN >60 Normal >=60 [facility] Comment on above: Performed By: #### C MP, TSH #### [facility] [address] [place] [address] Dr. Mary Herzog EGFR-NON AF INDONESIAN 52 mL/min/1.73m2 Critically low >=60 [facility] Comment on above: Performed By: #### C MP, TSH #### [facility] [address] [place] [address] Dr. Mary Herzog Globulin (S) [Mass/Vol] 3.4 g/dL Normal T [facility] Comment on above: Performed By: #### C MP, TSH #### [facility] [address] [place] [address] Dr. Mary Herzog Glucose [Mass/Vol] 104 mg/dL Normal 74-106 [facility] Comment on above: Performed By: #### C MP, TSH #### [facility] [address] [place] [address] Dr. Mary Herzog Potassium [Moles/Vol] 4.1 mmol/L Normal 3.5-5.1 [facility] Comment on above: Performed By: #### C MP, TSH #### [facility] [address] [place] [address] Dr. Mary Herzog Protein [Mass/Vol] 7.1 g/dL Normal 6.4-8.2 [facility] Comment on above: Performed By: #### C MP, TSH #### [facility] [address] [place] [address] Dr. Mary Herzog Sodium [Moles/Vol] 142 mmol/L Normal 136-145 [facility] Comment on above: Performed By: #### C MP, TSH #### [facility] [address] [place] [address] Dr. Mary Herzog Urea nitrogen [Mass/Vol] 19.0 mg/dL Critically high 7.0-18 .0 [facility] Comment on above: Performed By: #### C MP, TSH #### [facility] [address] [place] [address] Dr. Mary Herzog Urea nitrogen/Creatinine [Mass ratio] 18.4 mg/mg Normal [facility] Comment on above: Performed By: #### C MP, TSH #### [facility] [address] [place] [address] Dr. Mary Herzog TSHon 07-06-2022 TSH 1.684 uIU/mL Normal 0.358-3.740 [facility] Comment on above: Performed By: #### C MP, TSH #### [facility] [address] [place] [address] Dr. Mary Herzog VITAMIN B12on 07-06-2022 Cobalamin (Vitamin B12) [Mass/Vol] 1021.0 pg/mL Critically high 193.0-986.0 [facility] Comment on above: Performed By: #### V ITB12 #### [facility] [address] [place] [address] Dr. Mary Herzog Smudge cell detectionOrdered By: Frederick Perez on 06-13-2022 Smudge cells LM Ql (Bld) [facility] CBC AUTO DIFFon 05-11-2022 BASO # 0.1 103/ul Normal 0.0-0.1 [facility] Comment on above: Performed By: #### C BC #### [facility] [address] [address] [address] Mary Herzog Basophils/100 WBC (Bld) 0.6 % Normal 0.2-2.0 [facility] Comment on above: Performed By: #### C BC #### [facility] [address] [address] [address] Mary Herzog EO # 0.3 103/ul Normal 0.0-0.7 [facility] Comment on above: Performed By: #### C BC #### [facility] [address] [address] [address] Mary Herzog Eosinophils/100 WBC (Bld) 1.9 % Normal 0.9-7.0 [facility] Comment on above: Performed By: #### C BC #### [facility] [address] [address] [address] Mary Herzog Erythrocyte distribution width (RBC) [Ratio] 13.1 % Normal 11.0-15.0 [facility] Comment on above: Performed By: #### C BC #### [facility] [address] [address] [address] Mary Herzog Hematocrit (Bld) [Volume fraction] 46.7 % Normal 36.0-48.0 [facility] Comment on above: Performed By: #### C BC #### [facility] [address] [address] [address] Mary Herzog Hemoglobin (Bld) [Mass/Vol] 15.1 g/dL Normal 12.0-16.0 [facility] Comment on above: Performed By: #### C BC #### [facility] [address] [address] [address] Mary Herzog IG # 0.05 10e3/ul Critically high 0.00-0.03 [facility] Comment on above: Performed By: #### C BC #### [facility] [address] [place] [address] Dr. Mary Herzog IG % 0.3 % Normal 0.0-0.5 [facility] Comment on above: Performed By: #### C BC #### [facility] [address] [place] [address] Dr. Mary Herzog LYMPH # 10.4 103/ul Critically high 1.2-3.8 [facility] Comment on above: Performed By: #### C BC #### [facility] [address] [place] [address] Dr. Mary Herzog Lymphocytes/100 WBC (Bld) 56.5 % Normal 20.5-60.0 [facility] Comment on above: Performed By: #### C BC #### [facility] [address] [place] [address] Dr. Mary Herzog MANUAL DIFF REQ NO Normal [facility] Comment on above: Performed By: #### C BC #### [facility] [address] [place] [address] Dr. Mary Herzog MCH (RBC) [Entitic mass] 29.5 pg Normal 26.7-34.0 [facility] Comment on above: Performed By: #### C BC #### [facility] [address] [place] [address] Dr. Mary Herzog MCHC (RBC) [Mass/Vol] 32.3 g/dL Normal 29.9-35.2 [facility] Comment on above: Performed By: #### C BC #### [facility] [address] [place] [address] Dr. Mary Herzog MCV (RBC) [Entitic vol] 91.2 fL Normal 81.0-99.0 [facility] Comment on above: Performed By: #### C BC #### [facility] [address] [place] [address] Dr. Mary Herzog MONO # 0.8 103/ul Normal 0.3-0.8 [facility] Comment on above: Performed By: #### C BC #### [facility] [address] [place] [address] Dr. Mary Herzog Monocytes/100 WBC (Bld) 4.4 % Normal 1.7-12.0 [facility] Comment on above: Performed By: #### C BC #### [facility] [address] [place] [address] Dr. Mary Herzog NEUT # 6.7 103/ul Critically high 1.4-6.5 [facility] Comment on above: Performed By: #### C BC #### [facility] [address] [place] [address] Dr. Mary Herzog Neutrophils/100 WBC (Bld) 36.3 % Critically low 43.0-75.0 [facility] Comment on above: Performed By: #### C BC #### [facility] [address] [place] [address] Dr. Mary Herzog Platelet mean volume (Bld) [Entitic vol] 10.9 fL Normal 9.5-13.5 [facility] Comment on above: Performed By: #### C BC #### [facility] [address] [place] [address] Dr. Mary Herzog PLT 279 103/ul Normal 150-450 [facility] Comment on above: Performed By: #### C BC #### [facility] [address] [place] [address] Dr. Mary Herzog RBC 5.12 106/ul Normal 4.20-5.40 [facility] Comment on above: Performed By: #### C BC #### [facility] [address] [place] [address] Dr. Mary Herzog WBC 18.3 103/ul Critically high 4.0-11.0 [facility] Comment on above: Performed By: #### C BC #### [facility] [address] [place] [address] Dr. Mary Herzog FERRITINon 05-11-2022 Ferritin [Mass/Vol] 97.0 ng/mL Normal 8.0-252.0 [facility] Comment on above: Performed By: #### F ERR #### [facility] [address] [place] [address] Dr. Mary Herzog PROF CHEM 8 (BAS METB)on Anion gap [Moles/Vol] 11.7 mmol/L Normal [facility] Comment on above: Performed By: #### V ITB12 #### [facility] [address] [address] [address] Mary Herzog Calcium [Mass/Vol] 10.1 mg/dL Normal 8.5-10.1 [facility] Comment on above: Performed By: #### V ITB12 #### [facility] [address] [address] [address] Mary Herzog Chloride [Moles/Vol] 101 mmol/L Normal 98-107 [facility] Comment on above: Performed By: #### V ITB12 #### [facility] [address] [place] [address] Dr. Mary Herzog CO2 [Moles/Vol] 30.7 mmol/L Normal 21.0-32.0 [facility] Comment on above: Performed By: #### V ITB12 #### [facility] [address] [place] [address] Dr. Mary Herzog Creatinine [Mass/Vol] 0.97 mg/dL Normal 0.55-1.02 [facility] Comment on above: Performed By: #### V ITB12 #### [facility] [address] [place] [address] Dr. Mary Herzog EGFR-AF INDONESIAN >60 Normal >=60 [facility] Comment on above: Performed By: #### V ITB12 #### [facility] [address] [place] [address] Dr. Mary Herzog EGFR-NON AF INDONESIAN 56 mL/min/1.73m2 Critically low >=60 [facility] Comment on above: Performed By: #### V ITB12 #### [facility] [address] [place] [address] Dr. Mary Herzog Glucose [Mass/Vol] 138 mg/dL Critically high 74-106 [facility] Comment on above: Performed By: #### V ITB12 #### [facility] [address] [address] [address] Mary Herzog Potassium [Moles/Vol] 4.4 mmol/L Normal 3.5-5.1 [facility] Comment on above: Performed By: #### V ITB12 #### [facility] [address] [address] [address] Mary Herzog Sodium [Moles/Vol] 139 mmol/L Normal 136-145 [facility] Comment on above: Performed By: #### V ITB12 #### [facility] [address] [address] [address] Mary Herzog Urea nitrogen [Mass/Vol] 21.0 mg/dL Critically high 7.0-18 .0 [facility] Comment on above: Performed By: #### V ITB12 #### [facility] [address] [address] [address] Mary Herzog Urea nitrogen/Creatinine [Mass ratio] 21.6 mg/mg Normal [facility] Comment on above: Performed By: #### V ITB12 #### [facility] [address] [address] [address] Mary Herzog TSHon 05-11-2022 TSH 1.796 uIU/mL Normal 0.358-3.740 [facility] Comment on above: Performed By: #### V ITB12 #### [facility] [address] [place] [address] Dr. Mary Herzog Basophils Auto (Bld) [#/Vol] Ordered By: Sherwin Yepez on 10-17-2021 Basophils (Bld) [#/Vol] 0.1 10*3/uL 0.0-0.2 [facility] Basophils/100 WBC Auto (Bld) Ordered By: Sherwin Yepez on 10-17-2021 Basophils/100 WBC (Bld) 0.4 % . [facility] Blood hemoglobin measurement (mass/volume)Ordered By: Sherwin Yepez on 10-17-2021 Hemoglobin (Bld) [Mass/Vol] 14.4 g/dL 11.8-15.4 [facility] Blood leukocytes automated c ount (number/volume)Ordered By: Sherwin Yepez on 10-17-2021 WBC (Bld) [#/Vol] 19.6 10*3/uL 4.5-11.0 [facility] Creatinine and Glomerular fi ltration rate.predicted panel (S/P/Bld)Ordered By: Sherwin Yepez on 10-17-2021 Creatinine [Mass/Vol] 0.97 mg/dL 0.44-1.03 [facility] Eosinophils Auto (Bld) [#/Vo l]Ordered By: Sherwin Yepez on 10-17-2021 Eosinophils (Bld) [#/Vol] 0.0 10*3/uL 0.0-0.45 [facility] Eosinophils/100 WBC Auto (Bl d)Ordered By: Sherwin Yepez on 10-17-2021 Eosinophils/100 WBC (Bld) 0.0 % . [facility] Erythrocyte distribution wid th Auto (RBC) [Ratio]Ordered By: Sherwin Yepez on 10-17-2021 Erythrocyte distribution width (RBC) [Ratio] 13.8 % 11.9-15.3 [facility] Estimated glomerular filtrat ion rate (GFR) non- AmericanOrdered By: Sherwin Yepez on 10-17-2021 GFR/1.73 sq M.predicted among non-blacks MDRD (S/P/Bld) [Vol rate/Area] 56 mL/Min [facility] Hematocrit Auto (Bld) [Volum e fraction]Ordered By: Sherwin Yepez on 10-17-2021 Hematocrit (Bld) [Volume fraction] 43.4 % 34.0-46.4 [facility] - Hematology and Cell countsOrdered By: Sherwin Yepez on 10-17-2021 Nucleated RBC/100 WBC (Bld) [Ratio] 0.0 % 0-0.5 [facility] Lymphocytes Auto (Bld) [#/Vo l]Ordered By: Sherwin Yepez on 10-17-2021 Lymphocytes (Bld) [#/Vol] 5.7 10*3/uL 1.00-4.8 [facility] Lymphocytes/100 WBC Auto (Bl d)Ordered By: Sherwin Yepez on 10-17-2021 Lymphocytes/100 WBC (Bld) 28.9 % . [facility] MCH Auto (RBC) [Entitic mass ]Ordered By: Sherwin Yeepz on 10-17-2021 MCH (RBC) [Entitic mass] 30.0 pg 24.7-34.3 [facility] MCHC Auto (RBC) [Mass/Vol]Or dered By: Sherwin Yepez on 10-17-2021 MCHC (RBC) [Mass/Vol] 33.0 g/dL 32.0-35.0 [facility] MCV Auto (RBC) [Entitic vol] Ordered By: Sherwin Yepez on 10-17-2021 MCV (RBC) [Entitic vol] 90.7 fL 80-100 [facility] Monocytes Auto (Bld) [#/Vol] Ordered By: Sherwin Yepez on 10-17-2021 Monocytes (Bld) [#/Vol] 1.2 10*3/uL 0.0-0.8 [facility] Monocytes/100 WBC Auto (Bld) Ordered By: Sherwin Yepez on 10-17-2021 Monocytes/100 WBC (Bld) 5.9 % . [facility] Neutrophils Auto (Bld) [#/Vo l]Ordered By: Sherwin Yepez on 10-17-2021 Neutrophils (Bld) [#/Vol] 12.7 10*3/uL 1.8-7.7 [facility] Neutrophils/100 WBC Auto (Bl d)Ordered By: Sherwin Yepez on 10-17-2021 Neutrophils/100 WBC (Bld) 64.8 % . [facility] No Panel InformationOrdered By: Sherwin Yepez on 10-17-2021 Estimated GFR () > 60 mL/Min [facility] Comment on above: GFR estimated refere nce range: According to KDOQI guidelines, <60 ml/min/1.73m2 is sufficient to diagnose a patient with chronic kidney disease. Pharmacy Creatinine Clearance (Chem 42.09 [facility] Platelet Estimate Normal Normal [facility] Platelet Morphology Comment Normal Normal [facility] Platelet mean volume Auto (B ld) [Entitic vol]Ordered By: Sherwin Yepez on 10-17-2021 Platelet mean volume (Bld) [Entitic vol] 9.8 fL 6.3-10.7 [facility] Platelets Auto (Bld) [#/Vol] Ordered By: Sherwin Yepez on 10-17-2021 Platelets (Bld) [#/Vol] 238 10*3/uL 150-450 [facility] RBC Auto (Bld) [#/Vol]Ordere d By: Sherwin Yepez on 10-17-2021 RBC (Bld) [#/Vol] 4.79 10*6/uL 3.60-5.00 [facility] RBC morphologyOrdered By: Wolf Yepez on 10-17-2021 RBC morphology finding Nom (Bld) N/A [facility] Serum or plasma chloride soham surement (moles/volume)Ordered By: Sherwin Yepez on 10-17-2021 Chloride [Moles/Vol] 100 mmol/L 95-114 [facility] Serum or plasma potassium me asurement (moles/volume)Ordered By: Sherwin Yepez on 10-17-2021 Potassium [Moles/Vol] 4.9 mmol/L 3.5-5.1 [facility] Serum or plasma sodium measu rement (moles/volume)Ordered By: Sherwin Yepez on 10-17-2021 Sodium [Moles/Vol] 133 mmol/L 136-146 [facility] Serum or plasma total carbon dioxide measurement (moles/volume)Ordered By: Sherwin Yepez on 10-17-2021 CO2 [Moles/Vol] 25.3 mmol/L 22.0-30.0 [facility] Serum or plasma urea nitroge n measurement (mass/volume)Ordered By: Sherwin Yepez on 10-17-2021 Urea nitrogen [Mass/Vol] 16 mg/dL 9-23 [facility] COVID-19 Positive/NegativeOr dered By: Sherwin Yepez on 10-12-2021 SARS-CoV-2 (COVID-19) N gene RUSSEL+probe Ql (Resp) Negative Negative [facility] Comment on above: Testing for SARS-CoV -2 by RT-PCR This test was developed and its performance characteristics determined by [employer] and validated at the [facility]. This test has not been FDA [...] on 10-06-2021 Basophils (Bld) [#/Vol] N/A [facility] Basophils/100 WBC Auto (Bld) Ordered By: Sherwin Yepez on 10-06-2021 Basophils/100 WBC (Bld) N/A [facility] Basophils/100 WBC (Bld) 1 % 0-2 [facility] Blood hemoglobin measurement (mass/volume)Ordered By: Sherwin Yepez on 10-06-2021 Hemoglobin (Bld) [Mass/Vol] 14.7 g/dL 11.8-15.4 [facility] Blood leukocytes automated c ount (number/volume)Ordered By: Sherwin Yepez on 10-06-2021 WBC (Bld) [#/Vol] 17.0 10*3/uL 4.5-11.0 [facility] Creatinine and Glomerular fi ltration rate.predicted panel (S/P/Bld)Ordered By: Sherwin Yepez on 10-06-2021 Creatinine [Mass/Vol] 0.89 mg/dL 0.44-1.03 [facility] Eosinophils Auto (Bld) [#/Vo l]Ordered By: Sherwin Yepez on 10-06-2021 Eosinophils (Bld) [#/Vol] N/A [facility] Eosinophils/100 WBC Auto (Bl d)Ordered By: Sherwin Yepez on 10-06-2021 Eosinophils/100 WBC (Bld) N/A [facility] Erythrocyte distribution wid th Auto (RBC) [Ratio]Ordered By: Sherwin Yepez on 10-06-2021 Erythrocyte distribution width (RBC) [Ratio] 13.9 % 11.9-15.3 [facility] Estimated glomerular filtrat ion rate (GFR) non- AmericanOrdered By: Sherwin Yepez on 10-06-2021 GFR/1.73 sq M.predicted among non-blacks MDRD (S/P/Bld) [Vol rate/Area] > 60 mL/Min [facility] Hematocrit Auto (Bld) [Volum e fraction]Ordered By: Sherwin Yepez on 10-06-2021 Hematocrit (Bld) [Volume fraction] 45.0 % 34.0-46.4 [facility] Laboratory - Hematology and Cell countsOrdered By: Sherwin Yepez on 10-06-2021 Nucleated RBC/100 WBC (Bld) [Ratio] 0.1 % 0-0.5 [facility] Lymphocytes Auto (Bld) [#/Vo l]Ordered By: Sherwin Yepez on 10-06-2021 Lymphocytes (Bld) [#/Vol] N/A [facility] Lymphocytes/100 WBC Auto (Bl d)Ordered By: Sherwin Yepez on 10-06-2021 Lymphocytes/100 WBC (Bld) N/A [facility] Lymphocytes/100 WBC (Bld) 43 % 18-42 [facility] Lymphocytes/100 WBC Manual c nt (Bld)Ordered By: Sherwin Yepez on 10-06-2021 Lymphocytes/100 WBC (Bld) 21 % 0-12 [facility] MCH Auto (RBC) [Entitic mass ]Ordered By: Sherwin Yepez on 10-06-2021 MCH (RBC) [Entitic mass] 29.8 pg 24.7-34.3 [facility] MCHC Auto (RBC) [Mass/Vol]Or dered By: Sherwin Yepez on 10-06-2021 MCHC (RBC) [Mass/Vol] 32.7 g/dL 32.0-35.0 [facility] MCV Auto (RBC) [Entitic vol] Ordered By: Sherwin Yepez on 10-06-2021 MCV (RBC) [Entitic vol] 90.9 fL 80-100 [facility] Monocyte %Ordered By: Sherwin mcclendon on 10-06-2021 Monocytes/100 WBC (Bld) 2 % 1-3 [facility] Monocytes Auto (Bld) [#/Vol] Ordered By: Sherwin Yepez on 10-06-2021 Monocytes (Bld) [#/Vol] N/A [facility] Monocytes/100 WBC Auto (Bld) Ordered By: Sherwin Yepez on 10-06-2021 Monocytes/100 WBC (Bld) N/A [facility] Monocytes/100 WBC Manual cnt (Bld)Ordered By: Sherwin Yepez on 10-06-2021 Monocytes/100 WBC (Bld) 6 % 2-11 [facility] Neutrophils Auto (Bld) [#/Vo l]Ordered By: Sherwin Yepez on 10-06-2021 Neutrophils (Bld) [#/Vol] N/A [facility] Neutrophils/100 WBC Auto (Bl d)Ordered By: Sherwin Yepez on 10-06-2021 Neutrophils/100 WBC (Bld) N/A [facility] No Panel InformationOrdered By: Sherwin Yepez on 10-06-2021 Estimated GFR () > 60 mL/Min [facility] Comment on above: GFR estimated refere nce range: According to KDOQI guidelines, <60 ml/min/1.73m2 is sufficient to diagnose a patient with chronic kidney disease. Pharmacy Creatinine Clearance (Chem N/A [facility] Platelet Estimate Normal Normal [facility] Platelet Morphology Comment Normal Normal [facility] Platelet mean volume Auto (B ld) [Entitic vol]Ordered By: Sherwin Yepez on 10-06-2021 Platelet mean volume (Bld) [Entitic vol] 9.2 fL 6.3-10.7 [facility] Platelets Auto (Bld) [#/Vol] Ordered By: Sherwin Yepez on 10-06-2021 Platelets (Bld) [#/Vol] 223 10*3/uL 150-450 [facility] RBC Auto (Bld) [#/Vol]Ordere d By: Sherwin Yepez on 10-06-2021 RBC (Bld) [#/Vol] 4.95 10*6/uL 3.60-5.00 [facility] RBC morphologyOrdered By: Wolf Yepez on 10-06-2021 RBC morphology finding Nom (Bld) Normal [facility] Segmented neutrophils/100 WB C Manual cnt (Bld)Ordered By: Sherwin Yepez on 10-06-2021 Segmented neutrophils/100 WBC (Bld) 27 % 50-70 [facility] Serum or plasma calcium tamie urement (mass/volume)Ordered By: Sherwin Yepez on 10-06-2021 Calcium [Mass/Vol] 9.5 mg/dL 8.2-10.2 [facility] Serum or plasma chloride soham surement (moles/volume)Ordered By: Sherwin Yepez on 10-06-2021 Chloride [Moles/Vol] 99 mmol/L 95-114 [facility] Serum or plasma glucose tamie urement (mass/volume)Ordered By: Sherwin Yepez on 10-06-2021 Glucose [Mass/Vol] 98 mg/dL 70-100 [facility] Comment on above: ADA recommended refe rence range Random Glucose Reference Range is dependent on time and content of last meal. Glucose of more than 200 mg/dL in a nonstressed, ambulatory subject supports the diagnosis of Diabetes Mellitus. Serum or plasma potassium me asurement (moles/volume)Ordered By: Sherwin Yepez on 10-06-2021 Potassium [Moles/Vol] 4.7 mmol/L 3.5-5.1 [facility] Serum or plasma sodium measu rement (moles/volume)Ordered By: Sherwin Yepez on 10-06-2021 Sodium [Moles/Vol] 135 mmol/L 136-146 [facility] Serum or plasma total carbon dioxide measurement (moles/volume)Ordered By: Sherwin Yepez on 10-06-2021 CO2 [Moles/Vol] 27.3 mmol/L 22.0-30.0 [facility] Serum or plasma urea nitroge n measurement (mass/volume)Ordered By: Sherwin Yepez on 10-06-2021 Urea nitrogen [Mass/Vol] 19 mg/dL 12-15 [facility] CNPFarida 12-01-2020 CNPN Telephone ([place]) ROSANGELAMARITZA E ([id number]) 1945 F Date Time Provider Department 12/01/20 ANDREI MARIO During your visit today, we recorded the following information about you: Nicole Awad 12/01/2020 9:08 AM Signed Records faxed to [facility]. Patient to follow with Dr. Beckett. [...] Lymphocytosis [D72.820] 12/11/2016 CLL (chronic lymphocytic leukemia) ([facility]) [C91.1*12/11/2017 Encounter Status:Closed by NICOLE VÁZQUEZ on 12/01/20 [facility] 11-24-2020 CNPN Telephone ([place]) MARITZA ESPINO ([id number]) 1945 F Date Time Provider Department 11/24/20 ANDREI MARIO During your visit today, we recorded the following information about you: Mai Carlson 11/24/2020 2:33 PM Signed Please sign pending lab orders for Saturday12/02/20. Thanks, VAISHALI Faye MD 11/28/2020 2:56 PM Signed Signed nina Allergies As of Date: 11/24/2020 Noted Allergy Reaction AMOXICILLIN 11/20/2016 7 - Swelling Comments: Facial swelling RAGWEED POLLEN 11/19/2016 16 - Unknown Date Reviewed: 05/27/2020 Reviewed by: Jayson Sullivan - Fully Assessed Reason for Visit: Lab Orders [1688] Primary Visit Diagnosis:CLL (chronic lymphocytic leukemia) ([facility]) [C91.10] Order(s):CBC + DIFF [SQCBCDIF] Order #: [id number] STANDING COMP METABOLIC PANEL [SQCMP] Order #: [id number] STANDING LD LACTATE DEHYDRO [SQLD6] Order #: [id number] STANDING Prescriptions as of 11/30/2020 - amitriptyline [...] lymphocytic leukemia) (HCC) [C91.1*12/11/2017 Encounter Status:Closed by June on 11/30/20 [facility] CNOVSPon 06-01-2020 CNOVSP Visit (SP) Office ([place]) MARITZA ESPINO ([id number]) 1945 F Date Time Provider Department 06/01/20 10:00 AM ANDREI MARIO During your visit today, we recorded the following information about you: Temperature Pulse Respiration Blood pressure 97.2 degrees 73/minute 18/minute 131/73 Weight Height 56.3 kg 1.579 m Andrei Mario MD 06/01/2020 10:13 AM Signed NAME: Williesupriya Maritza CLINIC NO.: [id number] DATE OF SERVICE: June 01, 2020 Some [...] today. She was formerly a patient of [facility]. There have been no treatment indications. PATHOLOGIC [...] Pattern LSI BETHEL (11q22.3): Normal Pattern LSI [id number] (13q14): Normal Pattern CEP 12: Normal Pattern LSI LAMP1 (13q34): Normal Pattern IGH/CCND1 t(11;14)(q13;q32): Negative INTERPRETATION: There is a normal pattern of hybridization with each of the probes tested. 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 1. 11/21/2016 Peripheral blood Flow Cy: Specimen originated from [facility] Specimen #: [id number] Submitting Physician: FREDERICK PEREZ II, DO SPECIMEN [...] REVIEW OF (more content not included)... Normal [facility] Comp Metabolic Panelon 06-01 Albumin [Mass/Vol] 4.3 g/dL Normal 3.9-4.9 [facility] ALP [Catalytic activity/Vol] 66 U/L Normal 34-123 [facility] ALT [Catalytic activity/Vol] 13 U/L Normal 7-38 [facility] Anion gap [Moles/Vol] 8 mmol/L Low 9-18 [facility] AST [Catalytic activity/Vol] 20 U/L Normal 13-35 [facility] Bilirubin [Mass/Vol] 0.5 mg/dL Normal 0.2-1.3 [facility] Calcium [Mass/Vol] 9.4 mg/dL Normal 8.5-10.2 [facility] Chloride [Moles/Vol] 101 mmol/L Normal 97-105 [facility] CO2 [Moles/Vol] 26 mmol/L Normal 22-30 [facility] Creatinine [Mass/Vol] 1.12 mg/dL High 0.58-0.96 [facility] eGFR- Amer. 58 Normal [facility] eGFR-All Other Races 48 . Normal [facility] Comment on above: Result [...] GFR. Glucose [Mass/Vol] 97 mg/dL Normal 74-99 [facility] Comment on above: Result Comment: The [place] [employer] (ADA) provides guidance for cutoff [...] Standards of Medical Care in Diabetes 2016, [place] [employer]. Diabetes Care. 2016.39(Suppl 1). Potassium [Moles/Vol] 4.5 mmol/L Normal 3.7-5.1 [facility] Protein [Mass/Vol] 6.4 g/dL Normal 6.3-8.0 [facility] Sodium [Moles/Vol] 135 mmol/L Low 136-144 [facility] Urea nitrogen [Mass/Vol] 32 mg/dL High 7-21 [facility] LDon 06-01-2020 LD 173 U/L Normal 135-214 [facility] Remote CBCDIF (for [facility] use o nly)on 06-01-2020 Abs Baso 0.10 k/uL Normal <0.11 [facility] Abs [place] 0.97 k/uL High <0.87 [facility] Abs Neut 5.24 k/uL Normal 1.45-7.50 [facility] Absolute nRBC <0.01 Normal <0.01 [facility] Basophils/100 WBC (Bld) 0.5 % Normal C [facility] DTYPE Auto Diff Normal [facility] Eosinophils (Bld) [#/Vol] 0.47 10*3/uL High <0.46 [facility] Eosinophils/100 WBC (Bld) 2.3 % Normal [facility] Erythrocyte distribution width (RBC) [Ratio] 13.3 % Normal 11.5-15.0 [facility] Hematocrit (Bld) [Volume fraction] 44.1 % Normal 36.0-46.0 [facility] Hemoglobin (Bld) [Mass/Vol] 14.3 g/dL Normal 11.5-15.5 [facility] Lymphocytes (Bld) [#/Vol] 13.74 10*3/uL High 1.00-4.00 [facility] Lymphocytes/100 WBC (Bld) 67.0 % Normal [facility] MCH 29.6 pG Normal 26.0-34.0 [facility] MCHC (RBC) [Mass/Vol] 32.4 g/dL Normal 30.5-36.0 [facility] MCV (RBC) [Entitic vol] 91.3 fL Normal 80.0-100.0 C [facility] Monocytes/100 WBC (Bld) 4.7 % Normal C [facility] Neutrophils/100 WBC (Bld) 25.5 % Normal [facility] NRBCs 0.0 /100 WBC Normal 0 [facility] Platelet mean volume (Bld) [Entitic vol] 10.5 fL Normal 9.0-12.7 [facility] Platelets (Bld) [#/Vol] 309 10*3/uL Normal 150-400 [facility] RBC (Bld) [#/Vol] 4.83 10*6/uL Normal 3.90-5.20 [facility] WBC (Bld) [#/Vol] 20.52 10*3/uL High 3.70-11.00 [facility] CNPFarida 05-27-2020 CNPN Telephone ([place]) MARITZA ESPINO ([id number]) 1945 F Date Time Provider Department 05/27/20 ANDREI MARIO During your visit today, we recorded the following information about you: Allergies As of Date: 05/27/2020 Noted Allergy Reaction AMOXICILLIN 11/20/2016 7 - Swelling Comments: Facial swelling RAGWEED POLLEN 11/19/2016 16 - Unknown Date Reviewed: 05/27/2020 Reviewed by: Jayson Sullivan - Fully Assessed Reason for Visit: Lab Orders [2908] Primary Visit Diagnosis:CLL (chronic lymphocytic leukemia) (HCC) [C91.10] 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] Order(s):CBC + DIFF (FOR REMOTE [facility] USE) [SQRCBCDF] Order #: [id number] FUTURE COMP METABOLIC PANEL [SQCMP] Order #: [id number] FUTURE LD LACTATE DEHYDRO [SQLD6] Order #: [id number] FUTURE Prescriptions as of 05/27/2020 Sig: METOPROLOL [...] (HCC) [C91.1*12/11/2017 Encounter Status:Closed by JAYSON SULLIVAN [employer]KER MACHINE on 05/27/20 Normal [facility] Vital Signs Date Time Vital Sign Value Performing Clinician Facility 10-19-2024 09:53-0400 Body height 157.48 cm Evaristo Anguiano MD Work Phone: [facility] 10-19-2024 09:53-0400 Body mass index (BMI) [Ratio] 21.1 kg/m2 Evaristo Anguiano MD Work Phone: [facility] 10-19-2024 09:53-0400 Body weight 52.33 kg Evaristo Anguiano MD Work Phone: [facility] 10-19-2024 09:53-0400 Diastolic blood pressure 81 mm[Hg] Evaristo Anguiano MD Work Phone: [facility] 10-19-2024 09:53-0400 Heart rate 81 /min Evaristo Anguiano MD Work Phone: [facility] 10-19-2024 09:53-0400 Respiratory rate 12 /min Evaristo Anguiano MD Work Phone: [facility] 10-19-2024 09:53-0400 SaO2% (BldA) [Mass fraction] 98 % Evaristo Anguiano MD Work Phone: [facility] 10-19-2024 09:53-0400 Systolic blood pressure 149 mm[Hg] Evaristo Anguiano MD Work Phone: [facility] 09-15-2024 14:18-0400 Body height 157.48 cm Evaristo Anguiano MD Work Phone: [facility] 09-15-2024 14:18-0400 Body mass index (BMI) [Ratio] 20.8 kg/m2 Evaristo Anguiano MD Work Phone: [facility] 09-15-2024 14:18-0400 Body weight 51.7 kg Evaristo Anguiano MD Work Phone: [facility] 09-15-2024 14:18-0400 Diastolic blood pressure 90 mm[Hg] Evaristo Anguiano MD Work Phone: [facility] 09-15-2024 14:18-0400 Heart rate 98 /min Evaristo Anguiano MD Work Phone: [facility] 09-15-2024 14:18-0400 Systolic blood pressure 168 mm[Hg] Evaristo Anguiano MD Work Phone: [facility] 09-11-2024 09:03-0400 Body height 157.48 cm Evaristo Anguiano MD Work Phone: [facility] 09-11-2024 09:03-0400 Body mass index (BMI) [Ratio] 20.9 kg/m2 Evaristo Anguiano MD Work Phone: [facility] 09-11-2024 09:03-0400 Body weight 51.93 kg Evaristo Anguiano MD Work Phone: [facility] 09-11-2024 09:03-0400 Diastolic blood pressure 81 mm[Hg] Evaristo Anguiano MD Work Phone: [facility] 09-11-2024 09:03-0400 Heart rate 97 /min Evaristo Anguiano MD Work Phone: [facility] 09-11-2024 09:03-0400 Systolic blood pressure 130 mm[Hg] Evaristo Anguiano MD Work Phone: [facility] 06-15-2024 10:23-0400 Body height 157.[address] [facility] 06-15-2024 10:23-0400 Body mass index (BMI) [Ratio] 21.4 kg/m2 [facility] 06-15-2024 10:23-0400 Body weight 53.[address] [facility] 06-15-2024 10:23-0400 Diastolic blood pressure 84 mm[Hg] [facility] 06-15-2024 10:23-0400 Heart rate 87 /min [facility] 06-15-2024 10:23-0400 Respiratory rate 18 /min [facility] 06-15-2024 10:23-0400 SaO2% (BldA) [Mass fraction] 96 % [facility] 06-15-2024 10:23-0400 Systolic blood pressure 176 mm[Hg] [facility] 05-26-2024 13:12-0500 Body height 157.[address] [facility] 05-26-2024 13:12-0500 Body mass index (BMI) [Ratio] 21 kg/m2 [facility] 05-26-2024 13:12-0500 Body weight 52.[address] [facility] 05-26-2024 13:12-0500 Diastolic blood pressure 90 mm[Hg] [facility] 05-26-2024 13:12-0500 Heart rate 96 /min [facility] 05-26-2024 13:12-0500 Systolic blood pressure 166 mm[Hg] [facility] 01-02-2024 07:50-0400 Body height 157.[address] [facility] 01-02-2024 07:50-0400 Body mass index (BMI) [Ratio] 20.9 kg/m2 [facility] 01-02-2024 07:50-0400 Body weight 51.[address] [facility] 01-02-2024 07:50-0400 Diastolic blood pressure 82 mm[Hg] [facility] 01-02-2024 07:50-0400 Heart rate 86 /min [facility] 01-02-2024 07:50-0400 Respiratory rate 16 /min [facility] 01-02-2024 07:50-0400 SaO2% (BldA) [Mass fraction] 96 % [facility] 01-02-2024 07:50-0400 Systolic blood pressure 124 mm[Hg] [facility] 08-14-2023 13:10-0400 Diastolic blood pressure 84 mm[Hg] Papito Chapali [facility] 08-14-2023 13:10-0400 Mean blood pressure 109 mm[Hg] Mohamad Mouchli [facility] 08-14-2023 13:10-0400 Systolic blood pressure 160 mm[Hg] Mohamad Mouchli [facility] 08-14-2023 13:07-0400 Blood Pressure Location Mohamad Mouchli [facility] 08-14-2023 13:07-0400 Diastolic blood pressure 83 mm[Hg] Mohamad Mouchli [facility] 08-14-2023 13:07-0400 Heart rate 92 /min Mohamad Mouchli [facility] 08-14-2023 13:07-0400 Respiratory rate 16 /min Mohamad Mouchli [facility] 08-14-2023 13:07-0400 Systolic blood pressure 162 mm[Hg] Mohamad Mouchli [facility] 07-10-2023 11:25-0400 Diastolic blood pressure 82 mm[Hg] Mohamad Mouchli [facility] 07-10-2023 11:25-0400 Heart rate 86 /min Mohamad Mouchli [facility] 07-10-2023 11:25-0400 Respiratory rate 17 /min Mohamad Mouchli [facility] 07-10-2023 11:25-0400 SaO2% (BldA) [Mass fraction] 95 % Mohamad Mouchli [facility] 07-10-2023 11:25-0400 Systolic blood pressure 141 mm[Hg] Mohamad Mouchli [facility] 07-10-2023 11:10-0400 Diastolic blood pressure 76 mm[Hg] Mohamad Mouchli [facility] 07-10-2023 11:10-0400 Heart rate 80 /min Mohamad Mouchli [facility] 07-10-2023 11:10-0400 Respiratory rate 12 /min Mohamad Mouchli [facility] 07-10-2023 11:10-0400 SaO2% (BldA) [Mass fraction] 98 % Mohamad Mouchli [facility] 07-10-2023 11:10-0400 Systolic blood pressure 119 mm[Hg] Mohamad Mouchli [facility] 07-10-2023 11:05-0400 Diastolic blood pressure 66 mm[Hg] Mohamad Mouchli [facility] 07-10-2023 11:05-0400 Heart rate 73 /min Mohamad Mouchli [facility] 07-10-2023 11:05-0400 Respiratory rate 13 /min Mohamad Mouchli [facility] 07-10-2023 11:05-0400 SaO2% (BldA) [Mass fraction] 96 % Mohamad Mouchli [facility] 07-10-2023 11:05-0400 Systolic blood pressure 106 mm[Hg] Mohamad Mouchli [facility] 07-10-2023 10:55-0400 Body temperature 97.52 [degF] Mohamad Mouchli [facility] 07-10-2023 10:50-0400 Respiratory rate 15 /min Mohamad Mouchli [facility] 07-10-2023 10:45-0400 Respiratory rate 15 /min Mohamad Mouchli [facility] 07-10-2023 10:40-0400 Respiratory rate 15 /min Mohamad Mouchli [facility] 07-10-2023 08:49-0400 Blood Pressure Location Mohamad Mouchli [facility] 07-10-2023 08:49-0400 Body temperature 97.52 [degF] Mohamad Mouchli [facility] 07-03-2023 08:18-0400 Body height 157.48 cm MD Eugenio Beckett [facility] 07-03-2023 08:18-0400 Body mass index (BMI) [Ratio] 20.1 kg/m2 MD Becker [facility] 07-03-2023 08:18-0400 Body weight 49.95 kg MD Becker [facility] 07-03-2023 08:18-0400 Diastolic blood pressure 80 mm[Hg] MD Becker [facility] 07-03-2023 08:18-0400 Heart rate 91 /min MD Becker [facility] 07-03-2023 08:18-0400 Systolic blood pressure 134 mm[Hg] MD Becker [facility] 06-17-2023 10:28-0400 Body temperature 97.5 [degF] MD Becker [facility] 06-17-2023 10:28-0400 Body weight 49.89 kg MD Becker [facility] 06-17-2023 10:28-0400 Diastolic blood pressure 92 mm[Hg] MD Becker [facility] 06-17-2023 10:28-0400 Heart rate 96 /min MD Becker [facility] 06-17-2023 10:28-0400 Respiratory rate 16 /min MD Becker [facility] 06-17-2023 10:28-0400 SaO2% (BldA) [Mass fraction] 96 % MD Becker [facility] 06-17-2023 10:28-0400 Systolic blood pressure 169 mm[Hg] MD Becker [facility] 06-13-2023 09:42-0400 Body height 157.48 cm MD Becker [facility] 06-13-2023 09:42-0400 Body mass index (BMI) [Ratio] 20.3 kg/m2 MD Becker [facility] 06-13-2023 09:42-0400 Body weight 50.46 kg MD Becker [facility] 06-13-2023 09:42-0400 Diastolic blood pressure 87 mm[Hg] MD Becker [facility] 06-13-2023 09:42-0400 Heart rate 93 /min MD Becker [facility] 06-13-2023 09:42-0400 Systolic blood pressure 164 mm[Hg] MD Becker [facility] 05-27-2023 12:06-0500 Diastolic blood pressure 86 mm[Hg] Mohamad Mouchli [facility] 05-27-2023 12:06-0500 Mean blood pressure 108 mm[Hg] Mohamad Mouchli [facility] 05-27-2023 12:06-0500 Systolic blood pressure 151 mm[Hg] Mohamad Mouchli [facility] 05-27-2023 12:01-0500 Blood Pressure Location Mohamad Mouchli [facility] 05-27-2023 12:01-0500 Body temperature 97.34 [degF] Mohamad Mouchli [facility] 05-27-2023 12:01-0500 Diastolic blood pressure 90 mm[Hg] Mohamad Mouchli [facility] 05-27-2023 12:01-0500 Heart rate 91 /min Mohamad Mouchli [facility] 05-27-2023 12:01-0500 Respiratory rate 14 /min Mohamad Mouchli [facility] 05-27-2023 12:01-0500 Systolic blood pressure 158 mm[Hg] Mohamad Mouchli [facility] 04-23-2023 08:45-0500 Body height 157.48 cm Evaristo Anguiano Other [facility] 04-23-2023 08:45-0500 Body mass index (BMI) [Ratio] 20.37 kg/m2 Evaristo Anguiano Other [employer] Other 04-23-2023 08:45-0500 Body weight 50.53 kg Evaristo Hernandez [facility] 04-23-2023 08:45-0500 Diastolic blood pressure 78 mm[Hg] Evaristo Anguiano Other [facility] 04-23-2023 08:45-0500 Systolic blood pressure 130 mm[Hg] Evaristo Anguiano Other [facility] 04-16-2023 13:30-0500 Body height 157.48 cm Evaristo Anguiano Other [facility] 04-16-2023 13:30-0500 Body mass index (BMI) [Ratio] 20.67 kg/m2 Evaristo Anguiano Other [facility] [employer] Other 04-16-2023 13:30-0500 Body weight 51.26 kg Evaristo Anguiano Other [facility] [employer] Other 04-16-2023 13:30-0500 Body weight 51.25 kg MD Eugenio Beckett [facility] 04-16-2023 13:30-0500 Diastolic blood pressure 78 mm[Hg] Evaristo Anguiano Other [facility] 04-16-2023 13:30-0500 SaO2% (BldA) [Mass fraction] 97 % Evaristo Anguiano Other [facility] [employer] Other 04-16-2023 13:30-0500 Systolic blood pressure 120 mm[Hg] Evaristo Anguiano Other [facility] 02-11-2023 13:15-0500 Body height 157.48 cm Evaristo Anguiano Other [facility] [employer] Other 02-11-2023 13:15-0500 Body mass index (BMI) [Ratio] 20.81 kg/m2 Evaristo Anguiano Other [facility] [employer] Other 02-11-2023 13:15-0500 Body weight 51.62 kg Evaristo Anguiano Other [employer] Other 02-11-2023 13:15-0500 Diastolic blood pressure 87 mm[Hg] Evaristo Anguiano Other [employer] Other 02-11-2023 13:15-0500 Systolic blood pressure 149 mm[Hg] Evaristo Anguiano Other [employer] Other 01-01-2023 08:30-0400 Body height 157.48 cm Evaristo Anguiano Other [employer] Other 01-01-2023 08:30-0400 Body mass index (BMI) [Ratio] 21.32 kg/m2 Evaristo Anguiano Other [employer] Other 01-01-2023 08:30-0400 Body weight 52.89 kg Evaristo Anguiano Other [employer] Other 01-01-2023 08:30-0400 Diastolic blood pressure 84 mm[Hg] Evaristo Anguiano Other [employer] Other 01-01-2023 08:30-0400 Systolic blood pressure 154 mm[Hg] Evaristo Anguiano Other [employer] Other 07-02-2022 09:30-0400 Body height 157.48 cm Evaristo Anguiano Other [employer] Other 07-02-2022 09:30-0400 Body mass index (BMI) [Ratio] 21.58 kg/m2 Evaristo Anguiano Other [employer] Other 07-02-2022 09:30-0400 Body weight 53.52 kg Evaristo Anguiano Other [employer] Other 07-02-2022 09:30-0400 Diastolic blood pressure 72 mm[Hg] Evaristo Anguiano Other [employer] Other 07-02-2022 09:30-0400 SaO2% (BldA) [Mass fraction] 98 % Evaristo Anguiano Other [employer] Other 07-02-2022 09:30-0400 Systolic blood pressure 138 mm[Hg] Evaristo Anguiano Other [employer] Other 06-18-2022 10:53-0400 Body temperature 97.8 [degF] MD Becker [facility] 06-18-2022 10:53-0400 Body weight 53.52 kg MD Becker [facility] 06-18-2022 10:53-0400 Diastolic blood pressure 77 mm[Hg] MD Becker [facility] 06-18-2022 10:53-0400 Heart rate 91 /min MD Becker [facility] 06-18-2022 10:53-0400 Respiratory rate 16 /min MD Becker [facility] 06-18-2022 10:53-0400 SaO2% (BldA) [Mass fraction] 94 % MD Becker [facility] 06-18-2022 10:53-0400 Systolic blood pressure 148 mm[Hg] MD Becker [facility] 05-11-2022 09:45-0500 Body height 157.48 cm Evaristo Anguiano Other [employer] Other 05-11-2022 09:45-0500 Body mass index (BMI) [Ratio] 21.95 kg/m2 Evaristo Anguiano Other [employer] Other 05-11-2022 09:45-0500 Body weight 54.43 kg Evaristo Anguiano Other [employer] Other 05-11-2022 09:45-0500 Diastolic blood pressure 82 mm[Hg] Evaristo Anguiano Other [employer] Other 05-11-2022 09:45-0500 SaO2% (BldA) [Mass fraction] 97 % Evaristo Anguiano Other [employer] Other 05-11-2022 09:45-0500 Systolic blood pressure 130 mm[Hg] Evaristo Anguiano Other [employer] Other 04-05-2022 15:30-0500 Body height 157.48 cm Evaristo Anguiano Other [employer] Other 04-05-2022 15:30-0500 Body mass index (BMI) [Ratio] 21.58 kg/m2 Evaristo Anguiano Other [employer] Other 04-05-2022 15:30-0500 Body weight 53.52 kg Evaristo Anguiano Other [employer] Other 04-05-2022 15:30-0500 Diastolic blood pressure 88 mm[Hg] Evaristo Anguiano Other [employer] Other 04-05-2022 15:30-0500 SaO2% (BldA) [Mass fraction] 98 % Evaristo Anguiano Other [employer] Other 04-05-2022 15:30-0500 Systolic blood pressure 140 mm[Hg] Evaristo Anguiano Other [employer] Other 10-17-2021 15:57-0400 Body temperature 97.6 [degF] MD Evaristo Anguiano Work Phone: [facility] 10-17-2021 15:57-0400 Diastolic blood pressure 67 mm[Hg] MD Evaristo Anguiano Work Phone: [facility] 10-17-2021 15:57-0400 Heart rate 76 /min MD Evaristo Anguiano Work Phone: [facility] 10-17-2021 15:57-0400 Respiratory rate 14 /min MD Evaristo Anguiano Work Phone: [facility] 10-17-2021 15:57-0400 SaO2% (BldA) [Mass fraction] 91 % MD Evaristo Anguiano Work Phone: [facility] 10-17-2021 15:57-0400 Systolic blood pressure 112 mm[Hg] MD Evaristo Anguiano Work Phone: [facility] 10-17-2021 09:45-0400 Body height 160.02 cm MD Evaristo Anguiano Work Phone: [facility] 10-17-2021 08:42-0400 Inhaled oxygen flow rate 2 L/min MD Evaristo Anguiano Work Phone: [facility] 10-17-2021 05:08-0400 Body weight 55.3 kg MD Evaristo Anguiano Work Phone: [facility] 10-16-2021 11:25-0400 Body mass index (BMI) [Ratio] 20 kg/m2 MD Evaristo Anguiano Work Phone: [facility] 06-16-2021 14:43-0400 Body height 159 cm MD Eugenio Beckett [facility] Encounters Encounter Date Encounter Type Care Provider Facility Start: 10-19-2024 End: 10-19-2024 ambulatory Evaristo Anguiano MD Work Phone: [facility] Work Phone: Start: 10-19-2024 End: 10-19-2024 Patient encounter procedure Evaristo Anguiano MD [facility] Work Phone: Start: 09-15-2024 End: 09-15-2024 Patient encounter procedure Evaristo Anguiano MD [facility] Work Phone: Start: 09-11-2024 End: 09-11-2024 Patient encounter procedure Evaristo Anguiano MD [facility] Work Phone: Start: 06-15-2024 End: 06-15-2024 ambulatory [facility] Work Phone: Start: 06-15-2024 End: 06-15-2024 Patient encounter procedure [facility] Work Phone: Start: 06-01-2024 End: 06-01-2024 [facility] Start: 05-26-2024 End: 05-26-2024 ambulatory [facility] Work Phone: Start: 05-26-2024 End: 05-26-2024 Patient encounter procedure [facility] Work Phone: Start: 01-02-2024 End: 01-02-2024 ambulatory [facility] Work Phone: Start: 01-02-2024 End: 01-02-2024 Patient encounter procedure [facility] Work Phone: Start: 08-14-2023 End: 08-14-2023 ambulatory Papito Tripp Facility:[facility] Start: 08-14-2023 End: 08-14-2023 Patient encounter procedure Papito Tripp [facility] Start: 07-10-2023 End: 07-10-2023 Patient encounter procedure Papito Tripp [facility] Start: 07-03-2023 End: 07-03-2023 ambulatory MD Eugenio Bekcett [facility] Work Phone: Start: 07-03-2023 End: 07-03-2023 Patient encounter procedure MD Eugenio Beckett [facility] Work Phone: Start: 06-28-2023 Non-patient / Non-visit MD Eugenio [facility] Work Phone: Start: 06-17-2023 Registered Recurring MD [facility] Work Phone: Start: 06-17-2023 End: 06-17-2023 ambulatory MD Eugenio Beckett [facility] Work Phone: Start: 06-17-2023 End: 06-17-2023 Patient encounter procedure MD Eugenio Beckett [facility] Work Phone: Start: 06-13-2023 End: 06-13-2023 ambulatory MD Eugenio Beckett [facility] Work Phone: Start: 06-13-2023 End: 06-13-2023 Patient encounter procedure MD Eugenio Pineda [facility] Work Phone: Start: 06-12-2023 Registered Recurring MD Eugenio gregorio [facility] Work Phone: Start: 05-27-2023 End: 05-27-2023 Patient encounter procedure Papito Tripp [facility] Start: 04-30-2023 End: 04-30-2023 ambulatory Evaristo Anguiano Other [employer] Other Start: 04-30-2023 Telephone encounter Evaristo Anguiano [facility] Start: 04-23-2023 End: 04-23-2023 ambulatory Evaristo Anguiano Other [employer] Other Start: 04-23-2023 Office outpatient vi sit 15 minutes Evaristo Anguiano [facility] Start: 04-23-2023 End: 04-23-2023 Patient encounter procedure MD Eugenio Beckett [facility]- Start: 04-16-2023 End: 04-16-2023 ambulatory Evaristo Anguiano Other [employer] Other Start: 04-16-2023 Office outpatient vi sit 15 minutes Evaristo Anguiano [facility] Start: 04-16-2023 End: 04-16-2023 Patient encounter procedure MD Eugenio Beckett [facility]- Start: 02-11-2023 End: 02-11-2023 ambulatory Evaristo Anguiano Other [employer] Other Start: 02-11-2023 Office outpatient vi sit 15 minutes Evaristo Anguiano [facility] Start: 02-11-2023 Telephone encounter Evaristo Anguiano [facility] Start: 01-14-2023 End: 01-14-2023 ambulatory Evaristo Anguiano Other [employer] Other Start: 01-14-2023 Telephone encounter Evaristo Annmarie [facility] Start: 01-01-2023 End: 01-01-2023 ambulatory Evaristo Anguiano Other [employer] Other Start: 01-01-2023 Office outpatient vi sit 25 minutes Evaristo Anguiano [facility] Start: 08-22-2022 End: 08-22-2022 ambulatory KRISHAN GONSALEZ Facility:[facility] Start: 07-06-2022 End: 07-07-2022 ambulatory NONE LISTED REQUEST Facility:[facility] Start: 07-02-2022 End: 07-02-2022 ambulatory Evaristo Anguiano Other [employer] Other Start: 07-02-2022 Office outpatient vi sit 15 minutes Evaristo Anguiano [facility] Start: 05-18-2022 End: 05-18-2022 ambulatory Evaristo Anguiano Other [employer] Other Start: 05-18-2022 Telephone encounter Evaristo Anguiano [facility] Start: 05-17-2022 End: 05-17-2022 ambulatory Evaristo Anguiano Other [employer] Other Start: 05-17-2022 Telephone encounter Evaristo Anguiano [facility] Start: 05-11-2022 Office outpatient vi sit 15 minutes Evaristo Anguiano [facility] Start: 05-11-2022 End: 05-12-[address] EVARISTO ANGUIANO [facility] [employer] Other Start: 05-01-2022 End: 05-01-2022 ambulatory Evaristo Anguiano Other [employer] Other Start: 05-01-2022 Telephone encounter Evaristo Anguiano [facility] Start: 04-05-2022 End: 04-05-2022 ambulatory Evaristo Anguiano Other [employer] Other Start: 04-05-2022 Office outpatient vi sit 15 minutes Evaristo Anguiano [facility] Start: 10-16-2021 End: 10-17-2021 Admission to same day surgery center MD Evaristo Anguiano Work Phone: [facility] [place] Start: 10-12-2021 End: 10-12-2021 Patient encounter procedure MD Evarisot Anguiano Work Phone: [facility] Start: 10-06-2021 End: 10-06-2021 Patient encounter procedure MD Evaristo Anguiano Work Phone: [facility]rg[facility]lxy[facility]lo[facility] Start: 08-31-2021 End: 08-31-2021 Departed Referred MD Evaristo Anguiano Work Phone: [facility] [place] Start: 08-29-2021 End: 08-29-2021 Patient encounter procedure MD Evaristo Anguiano Work Phone: [facility] [place] Procedures Date Procedure Procedure Detail Performing Clinician Start: 07-10-2023 Colonoscopy Papito bennett Comment on above: poor prep, diverticu losis t/o Start: 10-16-2021 Laparoscopic fundoplication MD Evaristo Anguiano Work Phone: Start: 03-25-2021 Hiatal hernia (disorder) Maryjeovany Woodrowsabrina Start: 03-25-2017 Colonoscopy Maryjeovany Woodrow sabrina Start: 03-25-2013 Elbow region structu re (body structure) Maryjeovany Woodrowsabrina Start: 08-23-1997 Gallbladder structur e (body structure) Eniderinjeovany Tripp Tonsillar structure (palatine) (body structure) Papito Tripp Plan of Treatment Date Care Activity Detail Author Start: 05-26-2024 Patient referral [facility] Work Phone: Start: 10-17-2021 Administration of pr ophylactic treatment [facility] Work Phone: Start: 10-17-2021 [facility] Work Phone: Start: 06-16-2021 [facility] Comprehensive metabo lic 1999 panel - Serum or Plasma [facility] metabo lic 1999 panel - Serum or Plasma [facility] EKG [facility] EKG 12 channel panel [facility] MG Breast - bilateral Screening [facility] Patient referral [facility] Work Phone: XR Shoulder - right Views [facility] Immunizations Immunization Date Immunization Notes Care Provider Fa cility 12-25-2022 influenza virus vaccine, unspecified formulation Papito Tripp [facility] 02-13-2022 COVID-19 Pfizer (Pediatric) Evaristo Anguiano Other [facility] 02-13-2022 SARS-CoV-2 (COVID-19 ) [id number] Enidyue Chapali [facility] 12-13-2021 influenza virus vaccine, split virus (incl. purified surface antigen) Evaristo Anguiano Other [employer] [facility] Other 12-13-2021 influenza virus vaccine, unspecified formulation Mohamad Mouchli [facility] 01-02-2021 influenza virus vaccine, split virus (incl. purified surface antigen) Evaristo Anguiano Other [employer] [facility] Other 01-02-2021 influenza virus vaccine, unspecified formulation Mohamad Woodrowuchblanca [facility] 12-19-2020 COVID-19 mRNA Comirnaty (Pfizer) MD Evaristo Agnuiano Work Phone: [facility] Comment on above: Result Comment: 2023: [id number] 05-18-2020 COVID-19 mRNA Comirnatwinsome (Pfizer) MD Evaristo Anguiano Work Phone: [facility] Comment on above: Result Comment: 2023: [id number] 04-27-2020 COVID-19 mRNA Comirnaty (Pfizer) MD Evaristo Anguiano Work Phone: [facility] Comment on above: Result Comment: 2023: [id number] 11-29-2019 influenza virus vaccine, unspecified formulation Mohamad Mouchli [facility] 12-23-2018 influenza virus vaccine, unspecified formulation Mohamad Mouchli [facility] 01-31-2018 pneumococcal polysaccharide vaccine, 23 valent Evaristo Anguiano Other [facility] 01-20-2018 influenza virus vaccine, unspecified formulation Mohamad Mouchli [facility] 01-21-2017 influenza virus vaccine, unspecified formulation Papito Tripp [facility] 01-21-2017 pneumococcal conjuga te vaccine, 13 valent Evaristo Annmarie Other [facility] Payers Date Payer Category Payer Medicare [id number] 2023 Unknown [id number] 1957 Medicare [id number] 1957 Self-pay [id number] 1957 Unknown [id number] 1945 Unknown [id number] [id number] 1945 Unknown [id number] 2.16.84 [id number] 1945 Unknown [id number] 2.16.84 [id number] 1945 Unknown [id number] [id number] 1945 Unknown [id number] 2.16.8 [id number] Unknown [id number] [id number] [id number] Social History Date Type Detail Facility Start: 10-06-2021 End: 10-19-2024 Tobacco smoking status NHIS Never smoked tobacco (finding) [facility] Start: 1945 Sex Assigned At Female F [facility] Sex Assigned At [facility] Start: 05-26-2024 End: 06-15-2024 Sex Female (finding) [facility] Goals Date Patient Goal Desired Activity /State Functional Status Date Assessment Result Facility 08-14-2023 Functional Status N/A [facility] 07-10-2023 Functional Status N/A [facility] 05-27-2023 Functional Status N/A [facility] 10-17-2021 Functional status Patient at Baseline [facility] Work Phone: Mental Status Date Assessment Result Facility 10-17-2021 Cognitive function Cognitive Sta tus Patient at Baseline [facility] Work Phone: Clinical Notes 06-01-2020 to 09-11-2024 Note Date & Type Note Facility 09-11-2024 Evaluation note Diagnosis Onset Date Resolution Urticaria of unknown origin acute September 11, 2024 9:03am Shingles rash acute September 15, 2024 2:00pm Family history of diabetes mellitus acute October 19 9:49am Screening mammogram for breast cancer acute October 19 9:49am [facility] Work Phone: 1(801) 583-216303-24-2025 [facility] [place] [address] Cancer [facility] Note Signed Patient: Maritza Espino MR#: [id number] : 1945 Acct:[id number] Age/Sex: 79 / F Type: REG AMB Date of Service: 06/15/24 Copies to: Evaristo Anguiano MD~ Assessment & Plan A/P Patient Instructions: cbc, cmp, ldh prior to f/u in 1 year. CHEMO PLAN No Active Chemotherapy History of Present Illness HPI Plan Chronic lymphocytic leukemia Diagnosed in 2016 MEDRANO stage 0 Has not required treatment. stable lymphocyte count. We will continue to monitor. She had an ultrasound of her spleen on 06/22/2021 was normal. Monitoring slow weight loss. does not seem to be related to her CLL. HISTORY OF PRESENT ILLNESS 79-year-old female diagnosed with CLL MEDRANO stage 0 in October 2016. She takes no medications and otherwise is very healthy. She has a history of mild arthritis and never needed treatment. She is on Fosamax from her primary care provider also takes lisinopril 2.5 mg multivitamin and folic acid. Calciumand vitamin D3 as well. She followed initially with at [facility] and then Dr. Beckett at [facility] and now she is following with me [...] follows with Dr. Evaristo Anguiano, lives in [place]. she is on a steroid for a rash. hb normal. wbc stable. plt normal. 06/15/24 she is doing well, no lumps or bumps. no fevers sweats chills. no major medical changes. bp continues to be a bit high, she had increase in bp meds. still with Dr. Anguiano pcp. PHYSICAL EXAMINATION ECOG PS:0 General : patient is alert and oriented to person place and time, no acute distress. Neck: no JVD or thyromegaly. Lymph: no cervical, supraclavicular, axillary adenopathy. Heart: regular rate and rhythm no murmurs rubs or gallops. Abdomen: soft, nontender,, nondistended, no hepatosplenomegaly. Lungs: clear to auscultation bilaterally. No wheezes, rales, rhonchi. Extremities: no clubbing cyanosis Intake Vitals/Pain Assessment 06/15/24 10:23 Height 5 ft 2 in Weight 53.07 kg BMI 21.4 Body Fat % 38.03 BP 176/84 H Blood Pressure Location Lt brachial Position Sitting Pulse 87 Pulse Source NIBP Respiration 18 Pulse Oximetry (%) 96 Oxygen Delivery Method room air Are you having pain? Yes Pain Location generalized arthritis pain Intake Visit Reasons: 1 Year Follow Up Allergies Penicillins Allergy (Unknown, Verified 06/15/24 10:26) Hives amoxicillin Allergy (Verified 06/15/24 10:26) hives, lips swell 12 Hour Decongestant Allergy (Unknown, Uncoded 06/15/24 10:26) Hives Onset Date: 03/25/2017 Home Medications - Last Reconciled 06/15/24 by VALERIA Tam aspirin 81 mg PO DAILY calcium carbonate-vitamin D3 600 mg-10 mcg (400 unit) (Calcium 600 + D(3)) 1 tabPO BID hyoscyamine sulfate 1 tab PO Q4HR losartan TAKE 1 TABLET BY MOUTH EVERY DAY FOR 90 DAYS multivitamin 1 tab PO DAILY omeprazole TAKE 1 CAPSULE BY MOUTH EVERY DAY 30 MINUTES BEFORE MORNING MEAL Saccharomyces boulardii (Daily Probiotic (S. boulardii)) 250 mg PO DAILY Gastrointestinal Is the patient taking opioids for pain control?: No Bowel Protocol for Opioids Given: No Bowel Pattern: Regular Bowel Movement Aid(s): None Falls Fall Precaution Measures Taken: Patient in chair Nurse's Note: Patient is here for a 1 year follow up with labs for review. No concerns voiced at time of intake. [facility] History Attestation statement: The following information was validated with the patient. Medical History Medical History Large hiatal hernia Irritable bowel syndrome with diarrhea GERD without esophagitis Essential hypertension Chronic sinusitis, unspecified Chronic lymphocytic leukemia Anxiety, generalized CLL (chronic lymphocytic leukemia) Arthritis Hiatal hernia GERD (gastroesophageal reflux disease) Surgical History Surgical History S/P tonsillectomy and adenoidectomy H/O hernia repair Hx of cholecystectomy Hx of colonoscopy Hx of elbow surgery rt torn ligament History of tonsillectomy History of cholecystectomy Family History Family History Mother Breast cancer Father CAD (coronary artery disease) Brother Hypertension Legacy FamHx Relation: Brother(s) Diabetes Legacy FamHx Relation: Brother(s) Father Heart disease Mother Heart disease Cancer Legacy FamHx Problem: Diagnosed with Cancer Diabetes Sister Hypertension Social History Social History Smoking status: Never smoker Results - [facility] (Med Onc) LAB RESULTS Corrected WBC 19.0 X10E3/uL (3.8-11.6) H 06/10/24 09:11 05/23 12/17 Hgb 15.3 g/dL (11.8-15.4) 06/10/24 09:11 06/10/24 Hct 45.4 % (34.0-46.4) 06/10/24 09:11 06/10/24 MCV 89.7 fl (80-100) 06/10/24 09:11 06/10/24 RDW 13.3 % (11.9-15.3) 06/10/24 09:11 06/10/24 Plt Count 264 x10E3/uL (150-450) 06/10/24 09:11 06/10/24 Sodium 136 mmol/L (136-145) 06/10/24 09:11 06/10/24 Potassium 4.4 mmol/L (3.5-5.1) 06/10/24 09:11 06/10/24 BUN 14 mg/dL (7-25) 06/10/24 09:11 06/10/24 Creatinine 0.82 mg/dL (0.60-1.20) 06/10/24 09:11 06/10/24 Glucose 112 mg/dL (70-100) H 06/10/24 09:11 06/10/24 Est GFR (CKD-EPI) > 60.0 mL/Min 06/10/24 09:11 06/10/24 Calcium 10.0 mg/dL (8.6-10.3) 06/10/24 09:11 06/10/24 Total Bilirubin 0.5 mg/dl (0.3-1.0) 06/10/24 09:11 06/10/24 AST 20 U/L (13-39) 06/10/24 09:11 06/10/24 ALT 16 U/L (7-52) 06/10/24 09:11 06/10/24 Alkaline Phosphatase 84 U/L (34-104) 06/10/24 09:11 06/10/24 Total Protein 6.7 gm/dL (6.4-8.9) 06/10/24 09:11 06/10/24 Albumin 4.4 gm/dL (3.5-5.7) 06/10/24 09:11 06/10/24 Lactate Dehydrogenase 159 U/L (140-271) 06/10/24 09:11 5 Dictated By: Frederick Perez II, DO DD/ [id number] Signed By: 06/15/24 1044 [facility]03-04-2025 Evaluation note* Diagnosis Onset Date Resolution Status Admit Date Essential hypertension acute [facility] 2024 1:09pm GERD without esophagitis acute May 26, 2024 1:09pm Irregular heart rate acute George h 2024 1:09pm CLL (chronic lymphocytic leukemia) acute June 15, 2024 10:11am Hiatal hernia acute June 15, 2024 10:11am [facility] Work Phone: 1([phone]) 282-636904-17-2024 Evaluation + Plan noteExtracted from: Title:ANES Post-operative Note - General Author: Darius Nelson Jr., DO Date:07/10/23 Plan Transfer/Discharge: Transfer/Discharge Discharge when meets criteria ( From PACU to Ambulatory Surgery Unit, and To home ). Extracted from: Title:ANES Pre-operative Note - Endo Author:Darius Elizabeth Jr., DO Date:07/10/23 Plan [place] [employer]hesi[employer] (ASA) physical status classification: Class III. Anesthetic Preoperative Plan: Anesthesia General, and -TIVA. Future Scheduled Tests Laboratory* Calprotectin, Fecal 06/24/23 * Fecal WBC Lactoferrin 06/24/23 * Giardia lamblia, Direct Detection EIA 06/24/23 * O & P Exam, Routine 06/24/23 * Rotavirus Ab 06/24/23 * Clostridium Difficile PCR 06/24/23 * Enteric Panel by PCR 06/24/23 [facility]04-17-2024 Hospital Discharge instructions Patient Education 07/10/2023 11:13:46 Colonoscopy, Care After Surgery Salam (CUSTOM) Colonoscopy Care After Surgery Please read the instructions outlined below and refer to this sheet in the next few weeks. These discharge instructions provide you with general information on [facility] Your doctor may also give you [...] 3 times a day. General instructions Take [id number] and prescription medicines only as told by [...] provider. Document Revised: 09/20/2021 Document Reviewed: 09/20/2021 [employer] Patient Education 2022 [employer]. 07/10/2023 11:13:46 Diverticulosis MAGR (CUSTOM) Diverticulosis Many [...] unsweetened, w/added ascorbic acid 1 cup 0.5 Maverick 1 cup 0.7 Vegetables Cooked Green beans 1 cup 4.0 Carrots 1/2 cup sliced 2.3 Peas 1 cup 8.8 Potato (baked, with skin) 1 medium potato 3.8 Raw Burchard (with peel) 1 cucumber 1.5 Lettuce 1 [...] 8.7 Peanuts 1/2 cup 7.9 Chart from [facility] 2013. SEEK IMMEDIATE MEDICAL CARE IF: You [...] Reference. Available at http://www.nal.usda.gov/fnic/foodcomp/search/. Information adapted from: [employer] Patient Information 2009 [email or web address]. [employer] 2012 [email or web address] Follow Up Care 07/02/2023 08:30:53 With:Papito Tripp Address: [address], [address] [place] [phone] Business (1) When: Unknown Comments:office wll call for follow up [facility]04-01-2024 Evaluation + Plan note Future Scheduled Tests Laboratory* Calprotectin, Fecal 06/24/23 * Fecal WBC Lactoferrin 06/24/23 * Giardia lamblia, Direct Detection EIA 06/24/23 * O & P Exam, Routine 06/24/23 * Rotavirus Ab 06/24/23 * Clostridium Difficile PCR 06/24/23 * Enteric Panel by PCR 06/24/23 [facility] 01-30-2024 Evaluation note* Encounter Date Diagnosis Assessment Notes Treatment Notes Treatment Clinical Notes Mar, Acute diarrhea (ICD-10 - R19.7) Trial of levsin, pt requests referral to [employer] Other 01-23-2024 Evaluation note* Encounter Date Diagnosis Assessment Notes Treatment Notes Treatment Clinical Notes Mar, Acute diarrhea (ICD-10 - R19.7) advised taking Imodium 1-2x daily and resuming normal rather than a BRAT diet. Will call her on 04/18 and check on her symptoms. Pt agrees she feels well, except when she has to use BR suddenly. She was transferred to [place] in January and she is concerned this is related to a recurrance of that problem. [employer] Other 11-20-2023 Evaluation note* Encounter Date Diagnosis Assessment Notes Treatment Notes Treatment Clinical Notes Jan, Pneumatosis intestinalis (ICD-10 - K63.89) Completely resolved. Reviewed notes from [facility]. Pt is back to a normal [...] symptoms. Any developing patterns. Stay well hydrated. [employer] Other 10-10-2023 Evaluation note* Encounter Date Diagnosis [...] intermittent and no worse. Continue daily MVI. [employer] Other 05-31-2023 NotePROCEDURE: XR ELBOW LT MIN 3 VIEWS HISTORY: Pain ; acute left elbow pain; no known injury COMPARISON: None. FINDINGS: BONES:No fracture, acute abnormality, or significant arthropathy. SOFT TISSUES:No visible soft tissue swelling. EFFUSION:None visible. OTHER: Negative. IMPRESSION: 1. No acute bone abnormality or significant degenerative joint disease. Electronically authenticated by: JUMANA YBARRA Date: 2022-08-22 09:05[facility]05-31-2023 NotePROCEDURE: XR ANKLE RT MIN 3 VIEWS [...] Electronically authenticated by: JUMANA YBARRA Date: 2022-08-22 09:01[facility]04-10-2023 Evaluation note* Encounter Date Diagnosis Assessment Notes [...] I10) chronic - stable on present med. [employer] Other 02-24-2023 Evaluation note* Encounter Date Diagnosis Assessment Notes Treatment Notes Treatment Clinical Notes Apr, Paresthesia (ICD-10 - R20.2) [employer] Other 02-17-2023 Evaluation note* Encounter Date Diagnosis [...] stable. continue present meds. Due for labs. [employer] Other 01-12-2023 Evaluation note* Encounter Date Diagnosis [...] tolerated procedure well. Post care instructions given [employer] Other 07-26-2022 Progress note Author Sherwin Shermanwinsome [facility] October 17, 2021 8:28am Note Date/Time October 17, 2021 8:28 am [facility] [address] [place] [address] General Surgery Progress Note Signed Patient: Maritza Espino MR#: [id number] 1524 : 1945 Acct:[id number] Age/Sex: 76 / F Adm Date: 2 Loc: Room: [address] [place] [address] Type : REG CTC Attending Dr: Sherwin Yepez DO Copies to: [...] Mg/0.4 Ml Syringe) 40 mg SUBCUT DAILY@1000 LEON Stop: 10/17/22 09:59 Famotidine (Famotidine/Pf 20 Mg/2 [...] Kcl) 1,000 mls @ 80 mls/hr IV .[id number] [facility] Stop: 10/16/22 17:07 Last Admin: 10/17/21 06:37 Dose: 80 mls/hr Metoprolol Tartrate (Metoprolol Tartrate 5 Mg/5 Ml Vial) 5 mg IV-PUSH Q6H [facility] Stop: 10/16/22 17:59 Last Admin: 10/17/21 [...] % (Auto) 64.8, Lymph % (Auto) 28.9, Carson % (Auto) 5.9, Eos % (Auto) 0.0, Baso % (Auto) 0.4, Neut # (Auto) 12.7 H, Lymph # (Auto) 5.7 H, Carson # (Auto) 1.2 H, Eos # (Auto) [...] signed by DO Sherwin Yepez> 10/17/21 0828 [facility] Work Phone: [phone]) 253-830303-10-2021 NoteHNO ID: [id number] Author: Andrei Mario Service: ? Author Type: Physician Type: Progress Notes Filed: 06/01/2020 10:13 AM Note Text: NAME: Maritza Espino CLINIC NO.: [id number] DATE OF SERVICE: June 01, 2020 Some [...] today. She was formerly a patient of [facility]. There have been no treatment indications. PATHOLOGIC [...] Pattern LSI BETHEL (11q22.3): Normal Pattern LSI [id number] (13q14): Normal Pattern CEP 12: Normal Pattern LSI LAMP1 (13q34): Normal Pattern IGH/CCND1 t(11;14)(q13;q32): Negative INTERPRETATION: There is a normal pattern of hybridization with each of the probes tested. 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 1. 11/21/2016 Peripheral blood Flow Cy: Specimen originated from [facility] Specimen #: [id number] Submitting Physician: FREDERICK PEREZ II, DO SPECIMEN [...] area is 1.57 meters (more content not included)...[facility] + Plan note No data available for this section [facility] Evaluation noteNo assessment information available [facility] Work Phone: Evaluation note* Diagnosis Onset Date Resolution Status Hiatal hernia acute [facility] Work Phone: evaluation noteNo InformationNortEncompass [facility] Other Evaluation note* Diagnosis Onset Date Resolution Status CLL (chronic lymphocytic leukemia) acute Hiatal hernia acute [facility] Work Phone: evaluation note* Diagnosis Onset Date Resolution Status CLL (chronic lymphocytic leukemia) acute Contact dermatitis acute Irregular heart rate acute CLL (chronic lymphocytic leukemia) acute CLL (chronic lymphocytic leukemia) acute Hiatal hernia acute [facility] Work Phone: evaluation note* Diagnosis Onset Date Resolution Status CLL (chronic lymphocytic leukemia) acute Contact dermatitis acute Irregular heart rate acute CLL (chronic lymphocytic leukemia) acute CLL (chronic lymphocytic leukemia) acute Hiatal hernia acute CLL (chronic lymphocytic leukemia) acute Essential hypertension acute Weight loss acute [facility] Work Phone: evaluation note* Diagnosis Onset Date Resolution Status Right shoulder pain acute [facility] Work Phone: evaluation note* Diagnosis Onset Date Resolution Status Admit Date Essential hypertension acute [facility] 2024 1:09pm GERD without esophagitis acute May 26, 2024 1:09pm Irregular heart rate acute [facility] 2024 1:09pm [facility] Work Phone: [facility] general Narrative - Reported* Type Description Date [...] History hernia repair Hospitalization History see above [facility] Other [facility] Narrative - Reported* Type Description Date [...] History hernia repair Hospitalization History Gregoria Low 01/24-2 3 [employer] Other Hospital Discharge instructions No data available for this section [facility] Hospital Discharge instructionsAmbulatory Orders* Referral to Gastroenterology Time Frame: 05/26/24, Location: None Selected [facility] Work Phone: Progrjno note No data available for this section [facility] Prodtmte note Author Frederick Perez [facility] June 17, 2023 10:54am Note Date/Time June 17, 2023 10: 26am [facility] [place] [address] Cancer Center Note Signed Patient: Maritza Espino MR#: [id number] 1524 : 1945 Acct:[id number] Age/Sex: 78 / F Type: REG AMB [...] well. She followed initially with me at [facility] and then Dr. Beckett at [facility] and now she is following with me [...] follows with Dr. Evaristo Anguiano, lives in [place]. she is on a steroid for a [...] visit for CLL and go over labs [facility] Medical History Medical History Large hiatal hernia [...] signed by Frederick Perez II, DO> 06/17/23 105 [facility] Work Phone: Progress note Author Frederick Perez [facility] Note Date/Time June 15, 2024 10: 44am [facility] [place] [address] Cancer Center Note Signed Patient: Maritza Espino MR#: [id number] 1524 : 1945 Acct:[id number] Age/Sex: 79 / F Type: REG AMB Date of Service: 06/15/24 Copies to: Evaristo Anguiano MD~ Assessment & Plan A/P Patient Instructions: cbc, cmp, ldh prior to f/u in 1 year. CHEMO PLAN No Active Chemotherapy History of Present Illness HPI Plan Chronic lymphocytic leukemia Diagnosed in 2016 MEDRANO stage 0 Has not required treatment. stable lymphocyte count. We will continue to monitor. She had an ultrasound of her spleen on 06/22/2021 was normal. Monitoring slow weight loss. does not seem to be related to her CLL. HISTORY OF PRESENT ILLNESS 79-year-old female diagnosed with CLL MEDRANO stage 0 in October 2016. She takes no medications and otherwise is very healthy. She has a history of mild arthritis and never needed treatment. She is on Fosamax from her primary care provider also takes lisinopril 2.5 mg multivitamin and folic acid. Calciumand vitamin D3 as well. She followed initially with at [facility] and then Dr. Beckett at [facility] and now she is following with me [...] follows with Dr. Evaristo Anguiano, lives in [place]. she is on a steroid for a rash. hb normal. wbc stable. plt normal. 06/15/24 she is doing well, no lumps or bumps. no fevers sweats chills. no major medical changes. bp continues to be a bit high, she had increase in bp meds. still with Dr. Anguiano pcp. PHYSICAL EXAMINATION ECOG PS:0 General : patient is alert and oriented to person place and time, no acute distress. Neck: no JVD or thyromegaly. Lymph: no cervical, supraclavicular, axillary adenopathy. Heart: regular rate and rhythm no murmurs rubs or gallops. Abdomen: soft, nontender,, nondistended, no hepatosplenomegaly. Lungs: clear to auscultation bilaterally. No wheezes, rales, rhonchi. Extremities: no clubbing cyanosis Intake Vitals/Pain Assessment 06/15/24 10:23 Height 5 ft 2 in Weight 53.07 kg BMI 21.4 Body Fat % 38.03 BP 176/84 H Blood Pressure Location Lt brachial Position Sitting Pulse 87 Pulse Source NIBP Respiration 18 Pulse Oximetry (%) 96 Oxygen Delivery Method room air Are you having pain? Yes Pain Location generalized arthritis pain Intake Visit Reasons: 1 Year Follow Up Allergies Penicillins Allergy (Unknown, Verified 06/15/24 10:26) Hives amoxicillin Allergy (Verified 06/15/24 10:26) hives, lips swell 12 Hour Decongestant Allergy (Unknown, Uncoded 06/15/24 10:26) Hives Onset Date: 03/25/2017 Home Medications - Last Reconciled 06/15/24 by VALERIA Tam aspirin 81 mg PO DAILY calcium carbonate-vitamin D3 600 mg-10 mcg (400 unit) (Calcium 600 + D(3)) 1 tabPO BID hyoscyamine sulfate 1 tab PO Q4HR losartan TAKE 1 TABLET BY MOUTH EVERY DAY FOR 90 DAYS multivitamin 1 tab PO DAILY omeprazole TAKE 1 CAPSULE BY MOUTH EVERY DAY 30 MINUTES BEFORE MORNING MEAL Saccharomyces boulardii (Daily Probiotic (S. boulardii)) 250 mg PO DAILY Gastrointestinal Is the patient taking opioids for pain control?: No Bowel Protocol for Opioids Given: No Bowel Pattern: Regular Bowel Movement Aid(s): None Falls Fall Precaution Measures Taken: Patient in chair Nurse's Note: Patient is here for a 1 year follow up with labs for review. No concerns voiced at time of intake. [facility] History Attestation statement: The following information was validated with the patient. Medical History Medical History Large hiatal hernia Irritable bowel syndrome with diarrhea GERD without esophagitis Essential hypertension Chronic sinusitis, unspecified Chronic lymphocytic leukemia Anxiety, generalized CLL (chronic lymphocytic leukemia) Arthritis Hiatal hernia GERD (gastroesophageal reflux disease) Surgical History Surgical History S/P tonsillectomy and adenoidectomy H/O hernia repair Hx of cholecystectomy Hx of colonoscopy Hx of elbow surgery rt torn ligament History of tonsillectomy History of cholecystectomy Family History Family History Mother Breast cancer Father CAD (coronary artery disease) Brother Hypertension Legacy FamHx Relation: Brother(s) Diabetes Legacy FamHx Relation: Brother(s) Father Heart disease Mother Heart disease Cancer Legacy FamHx Problem: Diagnosed with Cancer Diabetes Sister Hypertension Social History Social History Smoking status: Never smoker Results - Cancer Ctr (Med Onc) LAB RESULTS Corrected WBC 19.0 X10E3/uL (3.8-11.6) H 06/10/24 09:11 05/23 12/17 Hgb 15.3 g/dL (11.8-15.4) 06/10/24 09:11 06/10/24 Hct 45.4 % (34.0-46.4) 06/10/24 09:11 06/10/24 MCV 89.7 fl (80-100) 06/10/24 09:11 06/10/24 RDW 13.3 % (11.9-15.3) 06/10/24 09:11 06/10/24 Plt Count 264 x10E3/uL (150-450) 06/10/24 09:11 06/10/24 Sodium 136 mmol/L (136-145) 06/10/24 09:11 06/10/24 Potassium 4.4 mmol/L (3.5-5.1) 06/10/24 09:11 06/10/24 BUN 14 mg/dL (7-25) 06/10/24 09:11 06/10/24 Creatinine 0.82 mg/dL (0.60-1.20) 06/10/24 09:11 06/10/24 Glucose 112 mg/dL (70-100) H 06/10/24 09:11 06/10/24 Est GFR (CKD-EPI) > 60.0 mL/Min 06/10/24 09:11 06/10/24 Calcium 10.0 mg/dL (8.6-10.3) 06/10/24 09:11 06/10/24 Total Bilirubin 0.5 mg/dl (0.3-1.0) 06/10/24 09:11 06/10/24 AST 20 U/L (13-39) 06/10/24 09:11 06/10/24 ALT 16 U/L (7-52) 06/10/24 09:11 06/10/24 Alkaline Phosphatase 84 U/L (34-104) 06/10/24 09:11 06/10/24 Total Protein 6.7 gm/dL (6.4-8.9) 06/10/24 09:11 06/10/24 Albumin 4.4 gm/dL (3.5-5.7) 06/10/24 09:11 06/10/24 Lactate Dehydrogenase 159 U/L (140-271) 06/10/24 09:11 5 Dictated By: Frederick Perez II, DO DD/ 1019 Signed By: <Electronically signed by Frederick Perez II, DO> 06/15/24 1044 [facility] Work Phone: Reason for referral (narrative)* Reason Pt has family i n [place], Admitted to [facility] in the fall, discharge summary scanned in; diarrhea, bowel changes; did not have a colonoscopy in the fall Diagnosis 1 Acute diarrhea (R19. 7) Referral Organization [facility] Medical C marcelo Referring Provider First Name Evaristo Referring Provider Last Name Annmarie Referring Provider Specialty Family Medi cine Ref[facility] Organization [facility] Referred Provider Naty Belle Referred Address [address] [place] [phone] Referred Provider Specialty Gastroentero logy Referral Priority Routine General Notes Silvia Pereira 10:15:03 AM >received today, attachments made, waiting for notes to be locked. [employer] Other Reason for referral (narrative)No reason for referral [facility] Work Phone: Summary Purpose Family History Relationship Condition Age [...] Unknown Malignant neoplasm Unknown sister Hypertension Unknown Relationship Condition Age at Onset Recorded Date/T elieser mother Malignant neoplasm of breast Unknown father Coronary artery disease Unknown brother Hypertension Unknown Diabetes mellitus Unknown father Heart disease Unknown Unknown mother Heart disease Unknown Malignant neoplasm Unknown sister Hypertension Unknown Advance Directives Advance Directive Response Recorded Date/ Time Advance Directives No June 12 2:22pm Advance Directive Response Recorded Date/ Time Advance Directives No June 12 1:22pm Chief Complaint and Reason for Visit Chief [...] (chronic lymphocytic leukemia) Essential hypertension Weight loss Chief Complaint 6 month follow up Reason for Visit Right shoulder pain Chief Complaint Admit Date puking with no other symptoms May 26, 2024 1:09pm Reason for Visit Admit Date Essential hypertension May 26, 2024 1 :09pm GERD without esophagitis May 26, 2024 1:09pm Irregular heart rate May 26, 2024 1:0 9pm Chief Complaint Admit Date puking with no other symptoms May 26, 2024 1:09pm 1 Year Follow Up June 15, 2024 10: 11am Reason for Visit Admit Date Essential hypertension May 26, 2024 1 :09pm GERD without esophagitis May 26, 2024 1:09pm Irregular heart rate May 26, 2024 1:0 9pm CLL (chronic lymphocytic leukemia) June 15, 2024 10:11am Hiatal hernia June 15, 2024 10: 11am Chief Complaint Admit Date rash September 11, 2024 9:03 am Rash Spreading September 15, 2024 2:00 pm wellness October 19, 2024 9:49 am Reason for Visit Admit Date Urticaria of unknown origin September 11 9:03am Shingles rash September 15, 2024 2:00 pm Family history of diabetes mellitus October 19, 2024 9:49am Screening mammogram for breast cancer [facility] 2024 9:49am Reason for Referral Reason 06/25/22 [place] office, Last OV and labs. Will also scan in labs from last year to send along. Thank you Diagnosis 1 Paresthesia (R20.2) Referral Organization [facility] Mary Lou robertson Referring Provider First Name Evaristo Referring Provider Last Name Annmarie Referring Provider Specialty Family [facility] Referred Organization [facility] Referred Provider Sharon Davila Referred Address [address] [place] [phone] Referred Provider Specialty Neurology Referral Priority Routine Referral Appointment Date 2022-06-25 General Notes Silvia Pereira 11:05:24 AM >received today, attachments made, form filled out, referral faxed Silvia Pereira 05/31/2022 10:06:11 AM >faxed first attempt letter Silvia Pereira 06/05/2022 08:49:35 AM >RECEIVED FAX WITH APPT DATE Additional Source Comments INFORMATION SOURCE (unrecogn ized section and content) DATE CREATED AUTHOR 04/26/2021 [facility] DATE CREATED AUTHOR 'S ORGANIZ ATION 08/31/[address] [facility] DATE CREATED AUTHOR AUTHOR'S ORGANIZ ATION 06/12/2024 [facility] DATE CREATED AUTHOR AUTHOR'S ORGANIZ ATION 07/27/2024 Raul [facility] Care Teams (unrecognized sec tion and [...] July 03, 2023 End: July 03, 2023 Team Status: Inactive Member Role Status Dates Evaristo Anguiano MD Primary Care Provide r, Attending Provider Active Start: January 02, 2024 End: January 02, 2024 Team Status: Inactive Member Role Status Dates Evaristo Anguiano MD Primary Care Provide r, Attending Provider Active Start: May 26, 2024 End: May 26, 2024 Team Status: Inactive Member Role Status Dates Evaristo Anguiano MD Primary Care Provider Active Start: June 15, 2024 End: June 15, 2024 Frederick Perez II, DO Attending Provider Active Start: June 15, 2024 End: June 15, 2024 Evaristo Anguiano MD Primary Care Provider Active Start: June 15, 2024 Team Status: Inactive Member Role Status Dates Evaristo Anguiano MD Primary Care Provider Active Start: September 11, 2024 End: September 11, 2024 Evaristo Anguiano MD Attending Provider Active St art: September 11, 2024 End: September 11, 2024 Team Status: Inactive Member Role Status Dates Evaristo Anguiano MD Primary Care Provider Active Start: September 15, 2024 End: September 15, 2024 Evaristo Anguiano MD Attending Provider Active St art: September 15, 2024 End: September 15, 2024 Team Status: Inactive Member Role Status Dates Evaristo Anguiaon MD Primary Care Provider Active Start: October 19, 2024 End: October 19, 2024 Evaristo Anguiano MD Attending Provider Active St art: October 19, 2024 End: October 19, 2024 Goals (unrecognized section and content) Goals may [...] this section No data available for this sectionGoals may be documented in an alternate sectionGoals may be documented in an alternate sectionGoals may be documented in an alternate sectionGoals may be documented in an alternate section REASON FOR VISIT (unrecogniz ed section and content) mole changing, BP issuesNo I nformationtoes/fingers numblabslabs3 month Follow up6 month Follow upmessagerecords.[facility] Issues- Diarrheacontinued diarrheamessage FOR RECORDS PERTAINING TO [...] BE BASED ON THE PRIMARY CLINICAL RECORDS. [facility]. provides no warranty or guarantee of the accuracy or completeness of information in this document.
--- OUTSIDE RECORDS SUMMARY | 2024-10-25 15:25 | XMS_ITS | Encounter Summary ---
Author Organization [employer] Address [id number] [address] [place] [address] Care Team Providers Care Anglesmith Helper Name Role Phone Dang Shannon MD Primary Care Provider [phone] Encounter Details Date Type Department Care Team (Late st Contact Info) Description 02/03/2023 Orders Only [facility] [address] [place] [phone] Transcribe, Orders Support User Pain (Primary Dx) Social History Tobacco Use Types Packs/Day Years Used Date Smoking Tobacco: Former Cigarettes Q uit: 1960 Smokeless Tobacco: Never Alcohol Use Standard Drinks/Week Comments Yes 0 [...] on file Sexual Orientation Not on file documented as of this encounter Functional Status documented as of this encounter Plan of Treatment Not on file documented as of this encounter Goals Goal Patient Goal Type Associated Problems Recent Progress Patient-Stated? Author <enter goal here> General Yes Vonnie Wilder, RN Note: Evaluation of progress towards goal: Patient plans for a safe discharge home with self care. documented as of this encounter Results * CT abdomen and pelvis with contrast (02/03/2023 5:15 AM EST) us Scanning Provider External IMG CT ORDERABLES Fin al Result documented in this encounter Visit Diagnoses Diagnosis Pain- Primary Generalized pain documented in this encounter Care Teams Anglesmith Helper Relationship Specialty Start Date End Date Dang Shannon MD [address] [place] [address] PCP - General Family Medicine 02/04/23 documented as of this encounter
[2024-10-25 15:34] LABS: Hematocrit 44.4 % (36.0-48.0); Hemoglobin 15.0 g/dL (12.0-16.0); Mean Corpuscular HGB Conc 33.8 g/dL (29.9-35.2); Mean Corpuscular Hemoglobin 31.2 pg (26.7-34.0); Mean Corpuscular Volume 92.3 fL (81.0-99.0); Platelet Count 302 10^3/uL (150-450); Red Blood Count 4.81 10^6/uL (4.20-5.40); White Blood Count 26.9 10^3/uL (4.0-11.0)
[2024-10-25 15:55] LABS: Atypical Lymphocytes % Manual 3.0 %; Atypical Lymphocytes Abs Man 0.80; Basophils Abs Manual 0.00 10^3/uL (0.00-0.10); Basophils Percent Manual 0.0 % (0.2-2.0); Eosinophils Absolute Manual 0.53 10^3/uL (0.00-0.70); Eosinophils Percent Manual 2.0 % (0.9-7.0); Lymphocytes Absolute Manual 19.09 10^3/uL (1.20-3.80); Lymphocytes Percent Manual 71.0 % (20.5-60.0); Monocytes Absolute Manual 0.53 10^3/uL (0.30-0.80); Monocytes Percent Manual 2.0 % (1.7-12.0); Segmented Neut Absolute Manual 5.91 10^3/uL (1.4-6.5); Segmented Neutrophils % Manual 22.0 (43.0-75.0)
[2024-10-25 15:56] LABS: Anion Gap 13.6; Blood Urea Nitrogen 22.0 mg/dL (7.0-18.0); Calcium 9.2 mg/dL (8.5-10.1); Carbon Dioxide 27.2 mmol/L (21.0-32.0); Chloride 101 mmol/L (98-107); Estimated GFR (African America >60 (>=60 mL/min/1.73m^2); Estimated GFR (Non-African Ame 50 (>=60 mL/min/1.73m^2); Glucose 187 mg/dL (74-106); Potassium 3.8 mmol/L (3.5-5.1); Sodium 138 mmol/L (136-145)
[2024-10-25] MEDS: 0.9 % SODIUM CHLORIDE 1,000 ML 1000 ML IV (16:23)
--- NOTE | 2024-10-25 16:27 | ED_ITS ---
HPI HPI - General Adult General Chief complaint: Syncope Stated complaint: SYNCOPE Time Seen by Provider: 10/25/24 15:18 Source: patient Mode of arrival: ambulance Limitations: no limitations History of Present Illness HPI narrative: 79-year-old female to the emergency department chief complaint of episode of unresponsiveness. Patient reports she was at a [facility]. She had not eate n or drinking much during the day. She reports that she was seated at the table next and she knew a friend was shaking her saying that she was not responding. A friend who is a nurse was present reports that she was staring off for several minutes and was not responding. Patient denies any seizure history. There was no shaking. She was breathing throughout the episode. Her eyes were open. P atient had a otherwise normal day. She has had no chest pain, shortness of breath, palpitations, abdominal pain, nausea vomiting or diarrhea. She reports no major medical problems. Related Data Home Medications ?Medication ?Instructions ?Recorded ?Confirmed aspirin 81 mg capsule 81 mg PO DAILY 02/03/2306/16 losartan 50 mg tablet 50 mg PO DAILY 10/25/2406/16 Allergies Allergy/AdvReac Type Severity Reaction Status Date / Time amoxicillin Allergy Unknown Unknown Verified 10/25/24 15:26 Opioid HPI Opioid Management Most Recent Opioid Data: Last Pain Scale 9 02/03/23, 04:13 Review of Systems ROS Status of ROS 10 or more systems reviewed and unremark able except as noted in history and below [facility] Medical History (Updated 10/25/24 @ 17:59 by Jason Mott MD) Leukemia ?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, 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 (ICD-10) Hypertension ?I10 - Essential (primary) hypertension (ICD-10) Surgical History (Updated 02/03/23 @ 07:47 by Alberto Boss RN) History of hernia repair ?Z98.890 - Other specified postprocedural states (ICD-10) ?Z87.19 - Personal history of other diseases of the digestive system (ICD-10) History of cholecystectomy ?Z90.49 - Acquired absence of other specified parts of digestive tract (ICD- 10) Social History Smoking status: Never smoker Little interest or pleasure in doing things: not at all Feeling down, depressed, or hopeless: not at all Exam Narrative Exam Narrative: VITALS: I have reviewed the triage vital signs. GENERAL: Well developed, well appearing adult in no acute distress. NEURO: Alert and oriented x4. Moves all extremities. Face is symmetric and expressive. Cranial nerves II through XII grossly intact as tested. Muscular strength and sensation grossly intact upper and lower extremities bilaterally. No dysarthria. No aphasia. No ataxia. Normal gait. NIHSS 0. EYES: PERRL. No scleral icterus or conjunctival injection. No discharge. HENT: Normocephalic, atraumatic. Hearing is grossly intact. Nares grossly patent and without discharge. Mucous membranes moist. NECK: No JVD. Patient moves neck without restriction. CARDIO: Rhythm regular. Normal rate. No murmur, rub, or gallop. Pulses equal bilaterally in the upper and lower extremity. No lower extremity edema. PULM: Lungs clear to auscultation in all gonzalez. No wheezes, rales, or rhonchi. No conversational dyspnea. No splinting, stridor, or accessory muscle use. GI/: Abdomen is soft and non-tender. Normoactive bowel sounds. EXTREMITIES: Symmetric muscle bulk. No joint swelling. No clubbing, cyanosis, or deformity. SKIN: Warm and dry. Normal turgor. No rash or lesions appreciated. PSYCH: Mood, affect, and interaction is appropriate to the setting. Constitutional Vital Signs, click to edit/add: Last Vital Signs Temp 98.1 F 10/25/24 17:52 Pulse 104 H 10/25/24 17:15 Resp 23 H 10/25/24 17:15 BP 168/87 H 10/25/24 17:15 Pulse Ox 96 10/25/24 17:15 O2 Del Method Room Air 10/25/24 15:20 Course Vital Signs Vital signs: Vital Signs Pulse Rate 101 H 10/25/24 15:20 Respiratory Rate 18 10/25/24 15:20 Blood Pressure 150/79 H 10/25/24 15:20 Pulse Oximetry 94 L 10/25/24 15:20 Oxygen Delivery Method Room Air 10/25/24 15:20 Temperature 98.1 F 10/25/24 17:52 Pulse Rate 104 H 10/25/24 17:15 Respiratory Rate 23 H 10/25/24 17:15 Blood Pressure 168/87 H 10/25/24 17:15 Pulse Oximetry 96 10/25/24 17:15 Oxygen Delivery Method Room Air 10/25/24 15:20 Medical Decision Making MDM Narrative Medical decision making narrative: 79-year-old female to the emergency department chief complaint of episode of staring off. Vital stable, the patient is afebrile. Her neurologic examination is nonfocal. She has no complaints at this time. Basic labs, CT, EKG ordered. Patient agrees with the plan. Lab work reviewed and noted. WBC count baseline for patient. She has a mild elevation of her creatinine not representing an LIN. Likely some mild dehydration. EKG without evidence of ischemia or arrhythmia. Patient was given a liter of fluids. She was observed in the department. She had no events on telemetry. nO Complaints. She was able to ambulate without any difficulty. She has a preference for discharge home which I believe is reasonable. Return precautions were discussed. She is instructed follow-up with her primary care doctor. All questions were answered. The patient was discharged home. Medical Records Medical records reviewed: Yes I reviewed the patient's medical records Lab Data Lab results reviewed: Yes I reviewed the patient's lab results Labs: Lab Results 10/25/24 10/25/24 Range/Units 15:20 16:55 WBC 26.9 H (4.0-11.0) 10^3/uL RBC 4.81 (4.20-5.40) 10^6/uL Hgb 15.0 (12.0-16.0) g/dL Hct 44.4 (36.0-48.0) % MCV 92.3 (81.0-99.0) fL MCH 31.2 (26.7-34.0) pg MCHC 33.8 (29.9-35.2) g/dL RDW 13.2 (11.0-15.0) % Plt Count 302 (150-450) 10^3/uL MPV 10.8 (9.5-13.5) fL Seg Neuts % (Manual) 22.0 L (43.0-75.0) Lymphocytes % (Manual) 71.0 H (20.5-60.0) % Atypical Lymphs % (Man) 3.0 % Monocytes % (Manual) 2.0 (1.7-12.0) % Eosinophils % (Manual) 2.0 (0.9-7.0) % Basophils % (Manual) 0.0 L (0.2-2.0) % Neutrophils # (Manual) 5.91 (1.4-6.5) 10^3/uL Lymphocytes # (Manual) 19.09 H (1.20-3.80) 10^3/uL Abs Atypical Lymphs Man 0.80 Monocytes # (Manual) 0.53 (0.30-0.80) 10^3/uL Eosinophils # (Manual) 0.53 (0.00-0.70) 10^3/uL Basophils # (Manual) 0.00 (0.00-0.10) 10^3/uL Sodium 138 (136-145) mmol/L Potassium 3.8 (3.5-5.1) mmol/L Chloride 101 (98-107) mmol/L Carbon Dioxide 27.2 (21.0-32.0) mmol/L Anion Gap 13.6 BUN 22.0 H (7.0-18.0) mg/dL Creatinine 1.06 H (0.55-1.02) mg/dL Est GFR ( Amer) >60 (>=60 mL/min/1.73m^2) Est GFR (Non-Af Amer) 50 L (>=60 mL/min/1.73m^2) BUN/Creatinine Ratio 20.8 Glucose 187 H (74-106) mg/dL Calcium 9.2 (8.5-10.1) mg/dL Troponin I High Sens <4.0 L (4.0-51.3) pg/mL Urine Color Yellow (YELLOW) Urine Clarity Clear (CLEAR) Urine pH 6.5 (5.0-9.0) Ur Specific [place] 1.015 (1.005-1.025) Urine Protein Trace (NEG/TRACE) mg/dL Urine Glucose (UA) Negative (NEGATIVE) mg/dL Urine Ketones Trace A (NEGATIVE) mg/dL Urine Occult Blood Negative (NEGATIVE) Urine Nitrite Negative (NEGATIVE) Urine Bilirubin Negative (NEGATIVE) Urine Urobilinogen 0.2 (0.2-1.0) EU/dL Ur Leukocyte Esterase Trace A (NEGATIVE) Urine RBC None seen (0-2) #/HPF Urine WBC 2-5 A (NONE SEEN) #/HPF Ur Squamous Epith Cells Rare (NONE/RARE) #/LPF Urine Crystals None seen (None Seen) #/HPF Urine Bacteria Trace A (NONE SEEN) #/HPF Urine Casts Seen A (NONE SEEN) #/LPF Hyaline Casts Rare Urine Mucus Trace A (NONE SEEN) Ur Culture Indicated? No Imaging Data CT scan - head: Radiologist's impression: ITS Impressions Chest X-Ray 10/25/24 15:18 IMPRESSION: There is cardiomegaly with interstitial prominence possibly related to volume overload. No focal consolidation. Impression dictated by: Jameson Das M.D. 10/25/2024 5:14 PM Dictation Location: [employer] Electronically authenticated by: [id number] Y Date: 10/25/2024 17:[address] 10/25/24 15:19 IMPRESSION: No acute intracranial pathology. Chronic age-related neurodegenerative changes are noted as above. Impression dictated by: Jameson Das M.D. 10/25/2024 4:21 PM Dictation Location: [employer] Electronically authenticated by: [id number] Y Date: 10/25/2024 16:21 ECG Data Attestation: I personally reviewed and interpreted this ECG as follows: (Normal sinus rhythm at a rate of 95. No STEMI. Normal QTc at 400.) Discharge Plan Discharge Chief Complaint: Syncope Clinical Impression: Near syncope Patient Disposition: Home, Self-Care Time of Disposition Decision: 17:59 Condition: Good Mode of Transportation: Private Vehicle Prescriptions / Home Meds: No Action aspirin 81 mg capsule 81 mg PO DAILY losartan 50 mg tablet 50 mg PO DAILY Print Language: Grenadian Instructions: Near Syncope (ED) Additional Instructions: Call the office of your primary care doctor to arrange for follow-up within the above-stated timeframe. Your ED visit was focused on your acute issue and does not replace primary care. You should review your labs, imaging, and diagnoses from this ED visit with your primary care physician. There may be non-emergent/ incidental findings that need further evaluation. You should review your vital signs including blood pressure with your PCP. If you were prescribed medications you should discuss possible side-effects and drug interactions with your pharmacist. Call 911 or go to the nearest Emergency Department if you develop any new or worsening symptoms. Referrals: Dang Shannon MD [Primary Care Provider, Family Practice] - 1 week
[2024-10-25 17:13] LABS: Glucose Urine UA NEGATIVE (NEGATIVE)
[2024-10-25 17:22] LABS: Cast Seen? SEEN #/LPF (NONE SEEN); Crystals Seen? None Seen #/HPF (None Seen)
[2024-10-25 17:23] LABS: Urine Culture Indicated NO
== END 2024-10-25 18:03 | disposition home or self-care (01) ==
PROVIDERS: Emergency Provider Student in an Organized Health Care Education/Training Program; PCP Family Medicine
DX: R55 Syncope and collapse (principal); Z90.49 Acquired absence of other specified parts of digestive tract
CPT/HCPCS: 36415; 70450; 71045; 80048; 81001; 84484; 85007; 85027; 93005; 96360; 99285

== ENCOUNTER 2024-11-18 07:47 | Outpatient (OUT) | payer MEDICARE, OTHER, SELFPAY ==
--- OUTSIDE RECORDS SUMMARY | 2024-11-18 07:53 | XMS_ITS | CCD ---
Author Organization [facility] CliniSyva Care Team Providers Care Powerhouse Electrician Name Role Phone MD Evaristo Anguiano Primary Care Provider DO Sherwin Yepez Attending Provider [phone] Evaristo Anguiano Unavailable REQUEST, NONE LISTED [...] Physician DO Frederick Perez II Attending Provider [phone] MD Eugenio Beckett Referring Provider Unavailable MD Evaristo Anguiano Primary Care Provider [phone] DO Frederick Perez II Attending Provider MD Eugenio Beckett Referring Provider Unavailable MD Evaristo Anguiano Primary Care Provider [phone] Papito Tripp Attending Unavailable Papito Tripp Attending Unavailable Evaristo Anguiano MD Primary Care Provider Evaristo Anguiano MD Attending Provider Jason Mott DO Attending Provider [phone] Jade Mott CMA Attending Provider Unavaila ble Allergies Allergy Classification Reported Allergen(s) Allergy Type Date of Onset Reaction(s) Facility (20 sources) Amoxicillin; Translations: [Amoxicillin] Drug Allergy 01-29-20 Weal (disorder) [facility] (13 sources) Penicillin Drug Allergy Unknown [facility] Other (7 sources) Pseudoephedrine Drug Allergy 03-25-19 Unknown [facility] Other (8 sources) Penicillins Allergy to substance 06-13-19 [facility] (8 sources) 12 Hour Decongestant Allergy to substance 06-12-19 [facility] Comment on above: Onset Date: 03/25/19 Medications Current Medications Medication Drug Class(es) Dates Sig (Normalized) Sig (Original) aspirin 81 mg oral capsule (20 sources) Platelet Aggregation Inhibitor, Nonsteroidal Anti-inflammatory Drug [...] drug therapy take 1 tablet by sarah th every [...] mg / cholecalciferol 0.01 mg oral tablet (10 sources) Vitamin D Start: 10-06-2021 take 1 [...] Start Date: 05/27/23 Status: Ordered Start: 05-27-2023 [facility], Daily, Refill(s) 0 Start [...] 507 gm, Refills(s) 3, Pharmacy: [facility]/pharmacy #[id number], 159, cm, 05/27/23 12:05:00 EST, Height/Length [...] Orally Once a day Active Multivitamin Tablet (4 sources) Start: 06-16-2021 take 1 tablet by [...] Active saccharomyces boulardii 250 mg oral capsule (5 sources) Start: 01-02-20 take 1 capsule by mouth once daily Saccharomyces Boulardii (Daily Probiotic (S. Boulardii)) 250 mg capsule Active 250 MG PO Daily January 02, 2024 12:00am Complies with drug therapy Completed/Discontinued Medications Medication Drug Class(es) Dates Sig (Normalized) Sig (Original) acetaminophen 325 mg oral tablet (9 sources) Start: 10-17-2021 End: 06-18-2022 take 2 [...] 2021 12:00am June 18, 2022 10:38am Calcium (17 sources) Phosphate Binder, Calcium Start: 06-16-2021 End: [...] resin 4000 mg powder for oral suspension (6 sources) Bile Acid Sequestrant Start: 01-02-2024 End: [...] 30 EA, Refills(s) 4, Pharmacy: [facility]/pharmacy #[id number], 159, cm, 05/27/23 12:05:00 EST, Height/Length Dosing, 50.6, kg, 05/27/23 12:05:00 EST, Weight Dosing Start Date: 05/27/23 Status: Ordered fluticasone propionate 0.05 mg/actuat metered dose nasal spray (10 sources) Corticosteroid Start: 10-06-2021 End: 06-18-2022 Fluticasone Propionate 50 mcg/actuation spray,suspension Discontinued 2 SPRAY INTRANASAL Daily as needed for Allergy Symptoms October 06, 2021 12:00am June 18, 2022 10:51am hyoscyamine sulfate 0.125 mg oral tablet (6 sources) Start: 05-26-2024 End: 09-11-2024 take 1 [...] hrs Active methylPREDNISolone 4 mg oral tablet (8 sources) Corticosteroid Start: 06-13-2023 End: 01-02-2024 Methylprednisolone [...] succinate 50 mg extended release oral tablet (10 sources) beta-Adrenergic Abilio Start: 06-16-2021 End: 01-02-2024 take 1 tablet by mouth once daily Metoprolol Succinate 50 mg tablet extended release 24 hr Discontinued 50 MG PO Daily June 16, 2021 12:00am January 02, 2024 8:33am omeprazole 20 mg delayed release oral capsule (15 sources) Proton Pump Inhibitor Start: 07-18-2023 End: [...] 4:19pm Start: 07-02-2022 take 1 capsule by [facility] once daily Omeprazole 20 MG 1 capsule 30 minutes before morning meal Orally Once a day for 30 days Jun, Active triamcinolone acetonide 1 mg/ml topical cream (2 sources) Corticosteroid Start: 09-11-2024 End: 09-15-2024 Triamcinolone Acetonide 0.1 % cream Discontinued 1 APPLIC TOPICAL Twice daily September 11, 2024 12:00am September 15, 2024 2:40pm valACYclovir 1000 mg oral tablet (2 sources) Herpesvirus Nucleoside Analog DNA Polymerase Inhibitor, Herpes Simplex Virus Nucleoside Analog DNA Polymerase Inhibitor, Herpes Zoster Virus Nucleoside Analog DNA Polymerase Inhibitor Start: 09-15-2024 End: 11-11-2024 Valacyclovir (Valtrex) 1 gram tablet Discontinued 1000 MG PO Every 8 hours September 15, 2024 12:00am November 11, 2024 11:38am Problems Problem Classification Problem Date Documented Da te Episodic/Chronic Abdominal hernia (20 sources) Hiatal hernia; Translations: [Diaphragmatic hernia without obstruction or gangrene] Onset: 4 10-17-2021 Episodic Allergic reactions (13 sources) Contact dermatitis; Translations: [Unspecified contact dermatitis, unspecified cause] 06-13-2023 Episodic Anxiety disorders (20 sources) Anxiety; Translations: [Anxiety disorder, unspecified] Chronic Bacterial infection; unspecified site (13 sources) Bacterial infectious disease; Translations: [Other specified bacterial agents as the cause of diseases classified elsewhere] Episodic Cardiac dysrhythmias (11 sources) Irregular heart beat; Translations: [Cardiac arrhythmia, unspecified] 06-13-2023 Chronic Esophageal disorders (15 sources) Gastroesophageal reflux disease without esophagitis; Translations: [...] Onset: 3 Episodic Other non-traumatic joint disorders (6 sources) Pain in right shoulder; Translations: [Right [...] Episodic Other nutritional; endocrine; and metabolic disorders (4 sources) Weight decreased; Translations: [Abnormal weight loss] 07-03-2023 Episodic Other screening for suspected conditions (not mental disorders or infectious disease) (5 sources) Encounter for screening mammogram for malignant neoplasm of breast; Translations: [Patient encounter status] Episodic Other skin disorders (1 source) Other hypertrophic disorders of the skin Episodic Other upper respiratory infections (13 sources) Bacterial sinusitis; Translations: [Chronic sinusitis, unspecified] Chronic Peripheral and visceral atherosclerosis (13 sources) Intermittent claudication; Translations: [Peripheral vascular disease, unspecified] Chronic Residual codes; unclassified (4 sources) Family history of diabetes mellitus; Translations: [Family history of diabetes mellitus] 10-19-2024 Episodic Syncope (1 source) Syncope; Translations: [Syncope and collapse] 11-11-2024 Episodic Viral infection (4 sources) Herpes zoster; Translations: [Zoster without complications] 09-16-2024 Episodic Results Test Name Value Interpretation Reference Range Facility Laboratory - Chemistry and C hemistry - challengeOrdered By: Jason Mott on 10-25-2024 Bilirubin Ql (U) Negative NEGATIVE [facility] Glucose (U) [Mass/Vol] Negative NEGATIVE [facility] Ketones Ql (U) TRACE mg/dL Abnormal NEGATIVE [facility] pH (U) 6.5 [pH] 5.0-9.0 [facility] Specific gravity (U) [Rel density] 1.015 1.005-1.025 [facility] Urobilinogen Qn (U) 0.2 {Ingris'U}/dL 0.2-1.0 [facility] Laboratory - Specimen inform ationOrdered By: Jason Mott on 10-25-2024 Appearance (U) CLEAR CLEAR [facility] Color (U) YELLOW YELLOW [facility] Laboratory - UrinalysisOrder ed By: Jason Mott on 10-25-2024 Hyaline casts LM Ql (Urine sed) RARE [facility] Leukocyte esterase Test strip Ql (U) TRACE Abnormal NEGATIVE [facility] Mucus Ql (Urine sed) TRACE Abnormal NONE SEEN [facility] Nitrite Ql (U) Negative NEGATIVE [facility] Protein Ql (U) TRACE mg/dL NEG/TRACE [facility] No Panel InformationOrdered By: Jason Mott on 10-25-2024 Urine Bacteria TRACE #/HPF Abnormal NONE SEEN [facility] Urine Culture Reflexed NO Fi [facility] Urine Occult Blood Negative NEGATIVE [facility] Urine Other Casts SEEN #/LPF Abnormal NONE SEEN [facility] Urine Other Crystals None Seen #/HPF None Seen [facility] Urine RBC NONE SEEN #/HPF 0-2 [facility] Urine Squamous Epithelial Cells RARE #/LPF NONE/RARE [facility] Urine WBC 2-5 #/HPF Abnormal NONE SEEN [facility] Ambulatory Visit Summaryon 0 07-22-2024 Ambulatory Visit [...] for choosing us for your care. Normal [facility] Comprehensive Metabolic Pane sandi 06-10-2024 Albumin [Mass/Vol] 4.4 g/dL Normal 3.5-5.7 [facility] Comment on above: Performed By: #### L DH, CMP, DIFF CBC #### [facility] [address] [id number] [place] Albumin/Globulin [Mass ratio] 1.9 {ratio} Normal [facility] Comment on above: Performed By: #### L DH, CMP, DIFF CBC #### [facility] [address] [place] [address] [place] ALP [Catalytic activity/Vol] 84 U/L Normal 34-104 [facility] Comment on above: Performed By: #### L DH, CMP, DIFF CBC #### [facility] [address] [place] [address] [place] ALT [Catalytic activity/Vol] 16 U/L Normal 7-52 [facility] Comment on above: Performed By: #### L DH, CMP, DIFF CBC #### [facility] [address] [id number] [place] Anion gap [Moles/Vol] 9.3 mmol/L Normal 6.0-15.0 [facility] Comment on above: Performed By: #### L DH, CMP, DIFF CBC #### [facility] [address] [place] [address] [place] AST [Catalytic activity/Vol] 20 U/L Normal 13-39 [facility] Comment on above: Performed By: #### L DH, CMP, DIFF CBC #### [facility] [address] [place] [address] [place] Bilirubin [Mass/Vol] 0.5 mg/dL Normal 0.3-1.0 [facility] Comment on above: Performed By: #### L DH, CMP, DIFF CBC #### [facility] [address] [place] [address] [place] Calcium [Mass/Vol] 10.0 mg/dL Normal 8.6-10.3 [facility] Comment on above: Performed By: #### L DH, CMP, DIFF CBC #### [facility] [address] [place] [address] [place] Chloride [Moles/Vol] 98 mmol/L Normal 98-107 [facility] Comment on above: Performed By: #### L DH, CMP, DIFF CBC #### [facility] [address] [id number] [place] CO2 [Moles/Vol] 33.1 mmol/L High 21.0-31.0 [facility] Comment on above: Performed By: #### L DH, CMP, DIFF CBC #### [facility] [address] [id number] [place] Creatinine [Mass/Vol] 0.82 mg/dL Normal 0.60-1.20 [facility] Comment on above: Performed By: #### L DH, CMP, DIFF CBC #### [facility] [address] [place] [address] [place] Creatinine Clr Calc Pharmacy 45.26 Normal [facility] Comment on above: Performed By: #### L DH, CMP, DIFF CBC #### [facility] [address] [place] [address] [place] GFR/1.73 sq M.predicted MDRD (S/P/Bld) [Vol rate/Area] mL/min/{1.73_m2} Normal [facility] Comment on above: Performed By: #### L DH, CMP, DIFF CBC #### [address] Globulin (S) [Mass/Vol] 2.3 g/dL Normal [facility] Comment on above: Performed By: #### L DH, CMP, DIFF CBC #### [address] Glucose [Mass/Vol] 112 mg/dL High 70-100 [facility] Comment on above: Result Comment: [place] Glucose Reference Range is dependent on time and content of last meal. Glucose of more than 200 mg/dL in a nonstressed, ambulatory subject supports the diagnosis of Diabetes Mellitus. ADA recommended reference range Performed By: #### L DH, CMP, DIFF CBC #### [address] Potassium [Moles/Vol] 4.4 mmol/L Normal 3.5-5.1 [facility] Comment on above: Performed By: #### L DH, CMP, DIFF CBC #### [place] [address] [place] Protein [Mass/Vol] 6.7 g/dL Normal 6.4-8.9 [facility] Comment on above: Performed By: #### L DH, CMP, DIFF CBC #### [address] Sodium [Moles/Vol] 136 mmol/L Normal 136-145 [facility] Comment on above: Performed By: #### L DH, CMP, DIFF CBC #### [address] Urea nitrogen [Mass/Vol] 14 mg/dL Normal 7-25 [facility] Comment on above: Performed By: #### L DH, CMP, DIFF CBC #### [facility] [address] Diff and CBCon 06-10-2024 Anisocytosis Ql (Bld) Moderate Normal [facility] Comment on above: Performed By: #### L DH, CMP, DIFF CBC #### [address] Basophils/100 WBC (Bld) 1 % Normal 0-2 [facility] Comment on above: Performed By: #### L DH, CMP, DIFF CBC #### [address] Erythrocyte distribution width (RBC) [Ratio] 13.3 % Normal 11.9-15.3 [facility] Comment on above: Performed By: #### L DH, CMP, DIFF CBC #### [address] Giant Platelet Tally 1 /100{WBC} Normal [facility] Comment on above: Performed By: #### L DH, CMP, DIFF CBC #### [address] Hematocrit (Bld) [Volume fraction] 45.4 % Normal 34.0-46.4 [facility] Comment on above: Performed By: #### L DH, CMP, DIFF CBC #### [address] Hemoglobin (Bld) [Mass/Vol] 15.3 g/dL Normal 11.8-15.4 [facility] Comment on above: Performed By: #### L DH, CMP, DIFF CBC #### [address] Large Platelets Slight Normal [facility] Comment on above: Result Comment: PERF ORMED BY: [place] [address] PATHOLOGIST TMD TEACHER ASSISTANT CRISTHIAN BHATIA M.D. Performed By: #### L DH, CMP, DIFF CBC #### [address] Lymphocytes/100 WBC (Bld) 64 % High 18-42 [facility] Comment on above: Performed By: #### L DH, CMP, DIFF CBC #### [address] MCH (RBC) [Entitic mass] 30.1 pg Normal 24.7-34.3 [facility] Comment on above: Performed By: #### L DH, CMP, DIFF CBC #### [address] MCV (RBC) [Entitic vol] 89.7 fL Normal 80-100 [facility] Comment on above: Performed By: #### L DH, CMP, DIFF CBC #### [address] Mean Corpuscular HGB Conc 33.6 g/dL Normal 32.0-35.0 [facility] Comment on above: Performed By: #### L DH, CMP, DIFF CBC #### [address] Microcytosis Moderate Normal [facility] Comment on above: Performed By: #### L DH, CMP, DIFF CBC #### [address] Monocytes/100 WBC (Bld) 1 % Low 2-11 [facility] Comment on above: Performed By: #### L DH, CMP, DIFF CBC #### [address] Ovalocytes Slight Normal [facility] Comment on above: Performed By: #### L DH, CMP, DIFF CBC #### [address] Platelet Estimate Normal Normal Normal [facility] Comment on above: Performed By: #### L DH, CMP, DIFF CBC #### [address] Platelet mean volume (Bld) [Entitic vol] 9.9 fL Normal 6.3-10.7 [facility] Comment on above: Performed By: #### L DH, CMP, DIFF CBC #### [address] Platelet Morphology Normal Normal Normal [facility] Comment on above: Performed By: #### L DH, CMP, DIFF CBC #### [address] Platelets (Bld) [#/Vol] 264 10*3/uL Normal 150-450 [facility] Comment on above: Performed By: #### L DH, CMP, DIFF CBC #### [address] Poikilocytosis Slight Normal [facility] Comment on above: Performed By: #### L DH, CMP, DIFF CBC #### [address] RBC (Bld) [#/Vol] 5.06 10*6/uL High 3.60-5.00 [facility] Comment on above: Performed By: #### L DH, CMP, DIFF CBC #### [address] Reactive Lymphocytes 2 % Normal 0-12 [facility] Comment on above: Performed By: #### L DH, CMP, DIFF CBC #### [address] Segmented neutrophils/100 WBC (Bld) 32 % Low 50-70 [facility] Comment on above: Performed By: #### L DH, CMP, DIFF CBC #### [address] WBC (Bld) [#/Vol] 19.0 10*3/uL High 3.8-11.6 [facility] Comment on above: Performed By: #### L DH, CMP, DIFF CBC #### [address] LDH Lactate Dehydrogenaseon 06-10-2024 LDH Lactate Dehydrogenase 159 U/L Normal 140-271 [facility] Comment on above: Result Comment: PERF ORMED BY: [place] [address] PATHOLOGIST TMD TEACHER ASSISTANT CRISTHIAN BHATIA M.D. Performed By: #### L DH, CMP, DIFF CBC #### [facility] [address] Gastroenterology Office/Clin ic Noteon 06-01-2024 Gastroenterology [...] 30 EA, Refills(s) 4, Pharmacy: [facility]/pharmacy #[id number], 159, cm, 05/27/23 12:05:00 EST, Height/Length Dosing, 50.6, kg, 05/27/23 12:05:00 EST, Weight Dosing methylcellulose, 2 gm, Oral, BID, # 507 gm, Refills(s) 3, Pharmacy: [facility]/pharmacy #[id number], 159, cm, 05/27/23 12:05:00 EST, Height/Length Dosing, 50.6, kg, 05/27/23 12:05:00 EST, Weight Dosing Continue omeprazole 40 mg daily Patient stopped Questran. Continue to monitor Patient not interested in repeating colonoscopy Continue probiotics from [id number] (align) Follow-up as needed Follow-up No qualifying [...] virus vaccine, inactivated 12/25/2022 Recorded SARS-CoV-2 (COVID-19) [id number] 02/13/2022 Recorded influenza virus vaccine, inactivated 12/13/2021 [...] influenza virus vaccine, inactivated 01/21/2017 Recorded Normal [facility] Comment on above: Result Comment: Elec [...] Diarrhea, # 30 EA, Refills(s) 4, [id number], cm, 05/27/23 12:05:00 EST, Height/Length Dosing, 50.6, kg, 05/27/23 12:05:00 EST, Weight Dosing methylcellulose, 2 gm, Oral, BID, # 507 gm, Refills(s) 3, Pharmacy: [facility]/pharmacy #[id number], 159, cm, 05/27/23 12:05:00 EST, Height/Length [...] virus vaccine, inactivated 12/25/2022 Recorded SARS-CoV-2 (COVID-19) [id number].[id number] 02/13/2022 Recorded influenza virus vaccine, inactivated 12/13/2021 [...] virus vaccine, inactivated 01/21/2017 Recorded Normal [facility] Comment on above: Result Comment: Elec tronically Signed By: Qasim PORTER, Papito Díaz.br\Date and Time Signed: 08/14/23 13:41 EDT Giardia lamblia Ag [Presence ] in Stool by Immunoassayon 06-28-2023 G. lamblia Ag IA Ql (Stl) Negative Negative [facility] Comment on above: Performed at: [facility] [address] [id number] Director: Quique Yee PhD, Phone: [phone] No Panel Informationon 06-27 Clostridium difficile (PCR)(LAB) Negative NEGATIVE [facility] Rotavirus Antigen (LAB) Negative Negative [facility] Comment on above: Performed at: [employer] [place] [id number] Director: Quique Yee PhD, Phone: [phone] Alanine aminotransferase [En zymatic activity/volume] in Serum or PlasmaOrdered By: Nida Crain on 06-12-2023 ALT [Catalytic activity/Vol] 14 U/L 7-52 [facility] Albumin [Mass/volume] in [...] on 06-12-2023 Anisocytosis Ql (Bld) Slight [facility] Aspartate aminotransferase [ Enzymatic activity/volume] in Serum or PlasmaOrdered By: Nida Crain on 06-12-2023 AST [Catalytic activity/Vol] 20 U/L 13-39 [facility] Basophils Auto (Bld) [#/Vol] Ordered By: Nida Crain on 06-12-2023 Basophils (Bld) [#/Vol] N/A [facility] Basophils/100 WBC Auto (Bld) Ordered By: Nida Crain on 06-12-2023 Basophils/100 WBC (Bld) N/A [facility] Bilirubin.total [Mass/volume ] in Serum or PlasmaOrdered By: Nida Crain on 06-12-2023 Bilirubin [Mass/Vol] 0.4 mg/dL 0.3-1.0 [facility] [place] Calcium [Mass/volume] in Ser um or PlasmaOrdered By: Nida Crain on 06-12-2023 Calcium [Mass/Vol] 9.5 mg/dL 8.6-10.3 [facility] Carbon dioxide, total [Moles /volume] in Serum or PlasmaOrdered By: Nida Crain on 06-12-2023 CO2 [Moles/Vol] 28.3 mmol/L 21.0-31.0 [facility] Chloride [Moles/volume] in S filemon or PlasmaOrdered By: Nida Crain on 06-12-2023 Chloride [Moles/Vol] 101 mmol/L 98-107 [facility] Creatinine [Mass/volume] in Serum or PlasmaOrdered By: Nida Crain on 06-12-2023 Creatinine [Mass/Vol] 0.87 mg/dL 0.60-1.20 [facility] Eosinophils Auto (Bld) [#/Vo l]Ordered By: [...] WBC Manual cnt (Bld) [Ratio] 1 /100{WBC} [facility] Globulin Calc (S) [Mass/Vol] Ordered By: Nida Crain on 06-12-2023 Globulin (S) [Mass/Vol] 1.9 g/dL [facility] Glucose [Mass/volume] in Ser um or PlasmaOrdered By: Nida Crain on 06-12-2023 Glucose [Mass/Vol] 122 mg/dL 70-100 [facility] Comment on above: ADA recommended refe [...] 14.2 g/dL 11.8-15.4 [facility] Lactate dehydrogenase [Enzym atic activity/volume] in Serum [...] MCHC (RBC) [Mass/Vol] 32.6 g/dL 32.0-35.0 [facility] MCV Auto (RBC) [Entitic vol] Ordered By: Nida Crain on 06-12-2023 MCV (RBC) [Entitic vol] 91.0 fL 80-100 [facility] Microcytes LM Ql (Bld)Ordere d By: Nida Crain on 06-12-2023 Microcytes Ql (Bld) Slight [facility] Monocytes Auto (Bld) [#/Vol] Ordered By: Nida Crain on 06-12-2023 Monocytes (Bld) [#/Vol] N/A [facility] Monocytes/100 WBC Auto (Bld) Ordered By: Nida Crain on 06-12-2023 Monocytes/100 WBC (Bld) N/A [facility] Monocytes/100 WBC Manual cnt (Bld)Ordered By: Nida Crain on 06-12-2023 Monocytes/100 WBC (Bld) 1 % 2-11 [facility] Neutrophils Auto (Bld) [#/Vo l]Ordered By: Nida [...] 06-12-2023 Platelets LM Ql (Bld) Normal Normal [facility] Platelet mean volume Auto (B ld) [...] on 06-12-2023 Potassium [Moles/Vol] 4.4 mmol/L 3.5-5.1 [facility] Protein [Mass/volume] in Ser um or PlasmaOrdered By: Nida Crain on 06-12-2023 Protein [Mass/Vol] 6.2 g/dL 6.4-8.9 [facility] RBC Auto (Bld) [#/Vol]Ordere d By: Nida Crain on 06-12-2023 RBC (Bld) [#/Vol] 4.79 10*6/uL 3.60-5.00 [facility] RBC morphologyOrdered By: Blanca Crain on [...] 06-12-2023 Anion gap [Moles/Vol] 14.1 mmol/L 6.0-15.0 [facility] Sodium [Moles/volume] in Ser um or PlasmaOrdered By: Nida Crain on 06-12-2023 Sodium [Moles/Vol] 139 mmol/L 136-145 [facility] Urea nitrogen [Mass/volume] in Serum or PlasmaOrdered By: Nida Crain on 06-12-2023 Urea nitrogen [Mass/Vol] 20 mg/dL 7-25 [facility] Variant lymphocytes/100 WBC Manual cnt (Bld)Ordered By: Nida Crain on 06-12-2023 Variant lymphocytes/100 WBC (Bld) 1 % 0-12 [facility] WBC Auto (Bld) [#/Vol]Ordere d By: Nida Crain on 06-12-2023 WBC (Bld) [#/Vol] 16.8 10*3/uL 3.8-11.6 [facility] IMMUNOFIXATION ELEC, PROTEIN ELECon 07-09-2022 Albumin [Mass/Vol] 3.7 g/dL Normal 2.9-4.4 [facility] Comment on above: Performed By: #### V ITB12 #### [facility] [address] [address] [address] Mary Herzog Albumin/Globulin [Mass ratio] 1.5 {ratio} Normal 0.7-1.7 [facility] Comment on above: Performed By: #### V ITB12 #### [facility] [address] [address] [address] Mary Herzog [facility]vs-9-Devzoref 0.3 g/dL Normal 0.0-0.4 [facility] Comment on above: Performed By: #### V ITB12 #### [facility] [address] [address] [address] Mary Herzog Lrozt-7-Aafqknye 0.8 g/dL Normal 0.4-1.0 [facility] Comment on above: Performed By: #### V ITB12 #### [facility] [address] [address] [address] Mary Herzog Beta Globulin 0.9 g/dL Normal 0.7-1.3 [facility] Comment on above: Performed By: #### V ITB12 #### [facility] [address] [place] [address] Dr. Mary Herzog Gamma Globulin 0.6 g/dL Normal 0.4-1.8 [facility] Comment on above: Performed By: #### V ITB12 #### [facility] [address] [place] [address] Dr. Mary Herzog Globulin (S) [Mass/Vol] 2.6 g/dL Normal 2.2-3.9 [facility] Comment on above: Performed By: #### V ITB12 #### [facility] [address] [place] [address] Dr. Mary Herzog Immunofixation Result, Serum Comment Normal [facility] Comment on above: Result Comment: No m onoclonality detected. Performed By: #### V ITB12 #### [facility] [address] [place] [address] Dr. Mary Herzog Immunoglobulin A, Qn, Serum 102 mg/dL Normal 64-422 [facility] Comment on above: Performed By: #### V ITB12 #### [facility] [address] [place] [address] Dr. Mary Herzog Immunoglobulin G, Qn, Serum 635 mg/dL Normal 586-1602 [facility] Comment on above: Performed By: #### V ITB12 #### [facility] [address] [place] [address] Dr. Mary Herzog Immunoglobulin M, Qn, Serum 125 mg/dL Normal 26-217 [facility] Comment on above: Performed By: #### V ITB12 #### [facility] [address] [place] [address] Dr. Mary Herzog M-Nilesh Not Observed Normal Not Observed [facility] Comment on above: Performed By: #### V ITB12 #### [facility] [address] [place] [address] Dr. Mary Herzog PDF . Normal [facility] Comment on above: Performed By: #### V ITB12 #### [facility] [address] [place] [address] Dr. Mary Herzog Please note: Comment Normal [facility] Comment on above: Result Comment: Prot ein electrophoresis scan will follow via computer, mail, or certified professional ergonomist delivery. Performed By: #### V ITB12 #### [facility] [address] [place] [address] Dr. Mary Herzog Protein [Mass/Vol] 6.3 g/dL Normal 6.0-8.5 [facility] Comment on above: Performed By: #### V ITB12 #### [facility] [address] [place] [address] Dr. Mary Herzog VITAMIN B6on 07-09-2022 Vitamin B6 29.2 ug/L Normal 3.4-65.2 [facility] Comment on above: Result Comment: Defi ciency: <3.4 Marginal: 3.4 - 5.1 Adequate: >5.1 Performed By: #### V ITAB6 #### [facility] [address] [place] [address] Dr. Mary Herzog COPPER, SERUM or PLASMAon Copper, Serum 136 ug/dL Normal 80-158 [facility] Comment on above: Result Comment: Dete ction Limit = 5 Performed By: #### V ITB12 #### [facility] [address] [place] [address] Dr. Mary Herzog MO COMPREHENSIVE PROFILEon 07-07-2022 Anti-Centromere B Antibodies <0.2 Normal 0.0-0.9 [facility] Comment on above: Performed By: #### V ITB12 #### [facility] [address] [place] [address] Dr. Mary Herzog Anti-DNA (DS) Ab Qn 1 IU/mL Normal 0-9 [facility] Comment on above: Result Comment: Nega tive <5 Equivocal 5 - 9 Positive >9 Performed By: #### V ITB12 #### [facility] [address] [place] [address] Dr. Mary Herzog Anti-Mary-1 <0.2 Normal 0.0-0.9 [facility] Comment on above: Performed By: #### V ITB12 #### [facility] [address] [place] [address] Dr. Mary Herzog Antichromatin Antibodies <0.2 Normal 0.0-0.9 [facility] Comment on above: Performed By: #### V ITB12 #### [facility] [address] [place] [address] Dr. Mary Herzog ANTIRIBOSOMAL P AB <0.2 Normal 0.0-0.9 [facility] Comment on above: Performed By: #### V ITB12 #### [facility] [address] [place] [address] Dr. Mary Herzog Antiscleroderma-70 Antibodies <0.2 Normal 0.0-0.9 [facility] Comment on above: Performed By: #### V ITB12 #### [facility] [address] [place] [address] Dr. Mary Herzog COMMENT Comment Normal [facility] Comment on above: Result Comment: Auto antibody Disease Association Condition Frequency Antinuclear Antibody, SLE, mixed connective Direct (MO-D) tissue diseases dsDNA SLE 40 - 60% Chromatin Drug induced SLE 90% SLE 48 - 97% SSA (Ro) SLE 25 - 35% Sjogren's Syndrome 40 - 70% Lupus 100% SSB (La) SLE 10% Sjogren's Syndrome 30% Sm (anti-Carlson) SLE 15 - 30% LAB AIDE Mixed Connective Tissue Disease 95% (U1 nRNP, SLE 30 - 50% anti-ribonucleoprotein) Polymyositis and/or Dermatomyositis 20% Scl-70 (antiDNA Scleroderma (diffuse) 20 - 35% topoisomerase) Crest 13% Mary-1 Polymyositis and/or Dermatomyositis 20 - 40% Centromere B Scleroderma - Crest variant 80% Ribosomal P SLE 10 - 20% Performed By: #### V ITB12 #### [facility] [address] [place] [address] Dr. Mary Herzog LAB AIDE Antibodies 0.2 AI Normal 0.0-0.9 [facility] Comment on above: Performed By: #### V ITB12 #### [facility] [address] [place] [address] Dr. Mary Mello'jodi Anti-SS-A <0.2 Normal 0.0-0.9 [facility] Comment on above: Performed By: #### V ITB12 #### [facility] [address] [place] [address] Dr. Mary Mello'jodi Anti-SS-B <0.2 Normal 0.0-0.9 [facility] Comment on above: Performed By: #### V ITB12 #### [facility] [address] [place] [address] Dr. Mary Herzog Carlson Antibodies <0.2 Normal 0.0-0.9 [facility] Comment on above: Performed By: #### V ITB12 #### [facility] [address] [place] [address] Dr. Mary Herzog Carlson/LAB AIDE Antibodies <0.2 Normal 0.0-0.9 [facility] Comment on above: Performed By: #### V ITB12 #### [facility] [address] [place] [address] Dr. Mary Herzog CBC W MANUAL DIFFon 07-07-19 23 ATYPICAL LYMPH # Normal [facility] Comment on above: Performed By: #### C BCMAN #### [facility] [address] [place] [address] Dr. Mary Herzog ATYPICAL LYMPH % Normal [facility] Comment on above: Performed By: #### C BCMAN #### [facility] [address] [place] [address] Dr. Mary Herzog BAND # Normal 0.0-0.3 [facility] Comment on above: Performed By: #### C MARCELINOMAN #### [facility] [address] [place] [address] Dr. Mary Herzog BAND % Normal 0-5 [facility] Comment on above: Performed By: #### C BRODY #### [facility] [address] [place] [address] Dr. Mary Herzog BASOM # 0.00 103/ul Normal 0.00-0.10 [facility] Comment on above: Performed By: #### C MARCELINOMAN #### [facility] [address] [place] [address] Dr. Mary Herzog BASOM % 0.0 % Critically low 0.2-2.0 [facility] Comment on above: Performed By: #### C BRODY #### [facility] [address] [place] [address] Dr. Mary Herzog BLAST # Normal [facility] Comment on above: Performed By: #### C BRODY #### [facility] [address] [place] [address] Dr. Mary Herzog BLAST % Normal [facility] Comment on above: Performed By: #### C BRODY #### [facility] [address] [place] [address] Dr. Mary Herzog CORRECTED WBC Normal 4.0-11.0 [facility] Comment on above: Performed By: #### C BRODY #### [facility] [address] [address] [address] Mary Herzog EOS # 0.49 103/ul Normal 0.00-0.70 [facility] Comment on above: Performed By: #### C BRODY #### [facility] [address] [address] [address] Mary Herzog EOS% 3.0 % Normal 0.9-7.0 [facility] Comment on above: Performed By: #### C BRODY #### [facility] [address] [address] [address] Mary Herzog HCT 45.1 % Normal 36.0-48.0 [facility] Comment on above: Performed By: #### C BRODY #### [facility] [address] [place] [address] Dr. Mary Herzog HGB 14.5 g/dl Normal 12.0-16.0 [facility] Comment on above: Performed By: #### C BRODY #### [facility] [address] [place] [address] Dr. Mary Herzog LYMPHM # 10.89 103/ul Critically high 1.20-3.80 [facility] Comment on above: Performed By: #### C BRODY #### [facility] [address] [place] [address] Dr. Mary Herzog LYMPHM% 66.0 % Critically high 20.5-60.0 [facility] Comment on above: Performed By: #### C BRODY #### [facility] [address] [place] [address] Dr. Mary Herzog MCH 29.1 pg Normal 26.7-34.0 [facility] Comment on above: Performed By: #### C BRODY #### [facility] [address] [place] [address] Dr. Mary Herzog MCHC 32.2 g/dl Normal 29.9-35.2 [facility] Comment on above: Performed By: #### Chip SKINNER #### [facility] [address] [place] [address] Dr. Mary Herzog MCV 90.4 fL Normal 81.0-99.0 [facility] Comment on above: Performed By: #### C BRODY #### [facility] [address] [place] [address] Dr. Mary Herzog METAMYELOCYTE # Normal [facility] Comment on above: Performed By: #### C BRODY #### [facility] [address] [place] [address] Dr. Mary Herzog METAMYELOCYTE % Normal [facility] Comment on above: Performed By: #### C BRODY #### [facility] [address] [place] [address] Dr. Mary Herzog MONOM# 0.82 103/ul Critically high 0.30-0.80 [facility] Comment on above: Performed By: #### C BRODY #### [facility] [address] [place] [address] Dr. Mary Herzog MONOM% 5.0 % Normal 1.7-12.0 [facility] Comment on above: Performed By: #### C BRODY #### [facility] [address] [place] [address] Dr. Mary Herzog MPV 10.6 fL Normal 9.5-13.5 [facility] Comment on above: Performed By: #### C BRODY #### [facility] [address] [place] [address] Dr. Mary Herzog MYELOCYTE # Normal [facility] Comment on above: Performed By: #### C BRODY #### [facility] [address] [place] [address] Dr. Mary Herzog MYELOCYTE % Normal [facility] Comment on above: Performed By: #### C BRODY #### [facility] [address] [place] [address] Dr. Mary Herzog NRBC Normal [facility] Comment on above: Performed By: #### C BRODY #### [facility] [address] [place] [address] Dr. Mary Herzog PLT 277 103/ul Normal 150-450 [facility] Comment on above: Performed By: #### C MARCELINOMAN #### [facility] [address] [address] [address] Mary Herzog RBC 4.99 106/ul Normal 4.20-5.40 [facility] Comment on above: Performed By: #### C MARCELINOMAN #### [facility] [address] [address] [address] Mary Herzog RDW 12.9 % Normal 11.0-15.0 [facility] Comment on above: Performed By: #### C MARCELINOMAN #### [facility] [address] [address] [address] Mary Herzog SEG # 4.29 103/ul Normal 1.40-6.50 [facility] Comment on above: Performed By: #### Chip BENSONMAN #### [facility] [address] [address] [address] Mary Herzog SEG % 26.0 % Critically low 43.0-75.0 [facility] Comment on above: Performed By: #### Chip BENSONMAN #### [facility] [address] [address] [address] Mary Herzog WBC 16.5 103/ul Critically high 4.0-11.0 [facility] Comment on above: Performed By: #### C MACRELINOMAN #### [facility] [address] [address] [address] Mary Herzog GLYCOHEMOGLOBIN A1Con 2022 ADA RECOMMENDATION SEE BELOW Normal [facility] Comment on above: Result Comment: ADA RECOMMENDED LIMIT 4.0 - 6.0 ADA THERAPEUTIC TARGET < 7.0 ACTION SUGGESTED > 7.0 Performed By: #### D ATA1C #### [facility] [address] [address] [address] Mary Herzog Glucose [Mass/Vol] 117 mg/dL Normal [facility] Comment on above: Performed By: #### D ATA1C #### [facility] [address] [address] [address] Mary Herzog HbA1c (Bld) [Mass fraction] 5.7 % Normal 4.5-6.2 [facility] Comment on above: Performed By: #### D ATA1C #### [facility] [address] [address] [address] Mary Herzog PROF 14(COMP METB)on 023 Albumin [Mass/Vol] 3.7 g/dL Normal 3.4-5.0 [facility] Comment on above: Performed By: #### C MP, TSH #### [facility] [address] [place] [address] Dr. Mary Herzog Albumin/Globulin [Mass ratio] 1.1 {ratio} Normal [facility] Comment on above: Performed By: #### C MP, TSH #### [facility] [address] [place] [address] Dr. Mary Herzog ALP [Catalytic activity/Vol] 80 U/L Normal 46-116 [facility] Comment on above: Performed By: #### C MP, TSH #### [facility] [address] [place] [address] Dr. Mary Herzog ALT [Catalytic activity/Vol] 24 U/L Normal 14-59 [facility] Comment on above: Performed By: #### C MP, TSH #### [facility] [address] [place] [address] Dr. Mary Herzog Anion gap [Moles/Vol] 12.6 mmol/L Normal [facility] Comment on above: Performed By: #### C MP, TSH #### [facility] [address] [place] [address] Dr. Mary Herzog AST [Catalytic activity/Vol] 21 U/L Normal 15-37 [facility] Comment on above: Performed By: #### C MP, TSH #### [facility] [address] [place] [address] Dr. Mary Herzog Bilirubin [Mass/Vol] 0.5 mg/dL Normal 0.2-1.0 [facility] Comment on above: Performed By: #### C MP, TSH #### [facility] [address] [place] [address] Dr. Mary Herzog Calcium [Mass/Vol] 9.4 mg/dL Normal 8.5-10.1 [facility] Comment on above: Performed By: #### C MP, TSH #### [facility] [address] [address] [address] Mary Herzog Chloride [Moles/Vol] 104 mmol/L Normal 98-107 [facility] Comment on above: Performed By: #### C MP, TSH #### [facility] [address] [address] [address] Mary Herzog CO2 [Moles/Vol] 29.5 mmol/L Normal 21.0-32.0 [facility] Comment on above: Performed By: #### C MP, TSH #### [facility] [address] [place] [address] Dr. Mary Herzog Creatinine [Mass/Vol] 1.03 mg/dL Critically high 0.55-1.02 [facility] Comment on above: Performed By: #### C MP, TSH #### [facility] [address] [place] [address] Dr. Mary Herzog EGFR-AF TANZANIAN >60 Normal >=60 [facility] Comment on above: Performed By: #### C MP, TSH #### [facility] [address] [place] [address] Dr. Mary Herzog EGFR-NON AF TANZANIAN 52 mL/min/1.73m2 Critically low >=60 [facility] Comment on above: Performed By: #### C MP, TSH #### [facility] [address] [place] [address] Dr. Mary Herzog Globulin (S) [Mass/Vol] 3.4 g/dL Normal T [facility] Comment on above: Performed By: #### C MP, TSH #### [facility] [address] [address] [address] Mary Herzog Glucose [Mass/Vol] 104 mg/dL Normal 74-106 [facility] Comment on above: Performed By: #### C MP, TSH #### [facility] [address] [place] [address] Dr. Mary Herzog Potassium [Moles/Vol] 4.1 mmol/L Normal 3.5-5.1 [facility] Comment on above: Performed By: #### C MP, TSH #### [facility] [address] [place] [address] Dr. Mary Herzog Protein [Mass/Vol] 7.1 g/dL Normal 6.4-8.2 [facility] Comment on above: Performed By: #### C MP, TSH #### [facility] [address] [place] [address] Dr. Mary Herzog Sodium [Moles/Vol] 142 mmol/L Normal 136-145 [facility] Comment on above: Performed By: #### C MP, TSH #### [facility] [address] [place] [address] Dr. Mary Herzog Urea nitrogen [Mass/Vol] 19.0 mg/dL Critically high 7.0-18 .0 [facility] Comment on above: Performed By: #### C MP, TSH #### [facility] [address] [place] [address] Dr. Mary Herzog Urea nitrogen/Creatinine [Mass ratio] 18.4 mg/mg Normal [facility] Comment on above: Performed By: #### C MP, TSH #### [facility] [address] [place] [address] Dr. Mary Herzog TSHon 07-06-2022 TSH 1.684 uIU/mL Normal 0.358-3.740 [facility] Comment on above: Performed By: #### C MP, TSH #### [facility] [address] [place] [address] Dr. Mary Herzog VITAMIN B12on 07-06-2022 Cobalamin (Vitamin B12) [Mass/Vol] 1021.0 pg/mL Critically high 193.0-986.0 [facility] Comment on above: Performed By: #### V ITB12 #### [facility] [address] [place] [address] Dr. Mary Herzog Smudge cell detectionOrdered By: Frederick Perez on 06-13-2022 Smudge cells LM Ql (Bld) [facility] CBC AUTO DIFFon 05-11-2022 BASO # 0.1 103/ul Normal 0.0-0.1 [facility] Comment on above: Performed By: #### C BC #### [facility] [address] [place] [address] Dr. Mary Herzog Basophils/100 WBC (Bld) 0.6 % Normal 0.2-2.0 [facility] Comment on above: Performed By: #### C BC #### [facility] [address] [address] [address] Mary Herzog EO # 0.3 103/ul Normal 0.0-0.7 [facility] Comment on above: Performed By: #### C BC #### [facility] [address] [place] [address] Dr. Mary Herzog Eosinophils/100 WBC (Bld) 1.9 % Normal 0.9-7.0 [facility] Comment on above: Performed By: #### C BC #### [facility] [address] [place] [address] Dr. Mary Herzog Erythrocyte distribution width (RBC) [Ratio] 13.1 % Normal 11.0-15.0 [facility] Comment on above: Performed By: #### C BC #### [facility] [address] [place] [address] Dr. Mary Herzog Hematocrit (Bld) [Volume fraction] 46.7 % Normal 36.0-48.0 [facility] Comment on above: Performed By: #### C BC #### [facility] [address] [place] [address] Dr. Mary Herzog Hemoglobin (Bld) [Mass/Vol] 15.1 g/dL Normal 12.0-16.0 [facility] Comment on above: Performed By: #### C BC #### [facility] [address] [place] [address] Dr. Mary Herzog IG # 0.05 10e3/ul Critically high 0.00-0.03 [facility] Comment on above: Performed By: #### C BC #### [facility] [address] [place] [address] Dr. Mary Herzog IG % 0.3 % Normal 0.0-0.5 [facility] Comment on above: Performed By: #### C BC #### [facility] [address] [place] [address] Dr. Mary Herzog LYMPH # 10.4 103/ul Critically high 1.2-3.8 [facility] Comment on above: Performed By: #### C BC #### [facility] [address] [place] [address] Dr. Mary Herzog Lymphocytes/100 WBC (Bld) 56.5 % Normal 20.5-60.0 [facility] Comment on above: Performed By: #### C BC #### [facility] [address] [place] [address] Dr. Mary Herzog MANUAL DIFF REQ NO Normal [facility] Comment on above: Performed By: #### C BC #### [facility] [address] [place] [address] Dr. Mary Herzog MCH (RBC) [Entitic mass] 29.5 pg Normal 26.7-34.0 [facility] Comment on above: Performed By: #### C BC #### [facility] [address] [place] [address] Dr. Mary Herzog MCHC (RBC) [Mass/Vol] 32.3 g/dL Normal 29.9-35.2 [facility] Comment on above: Performed By: #### C BC #### [facility] [address] [place] [address] Dr. Mary Herzog MCV (RBC) [Entitic vol] 91.2 fL Normal 81.0-99.0 [facility] Comment on above: Performed By: #### C BC #### [facility] [address] [place] [address] Dr. Mary Herzog MONO # 0.8 103/ul Normal 0.3-0.8 [facility] Comment on above: Performed By: #### C BC #### [facility] [address] [place] [address] Dr. Mary Herzog Monocytes/100 WBC (Bld) 4.4 % Normal 1.7-12.0 [facility] Comment on above: Performed By: #### C BC #### [facility] [address] [place] [address] Dr. Mary Herzog NEUT # 6.7 103/ul Critically high 1.4-6.5 [facility] Comment on above: Performed By: #### C BC #### [facility] [address] [place] [address] Dr. Mary Herzog Neutrophils/100 WBC (Bld) 36.3 % Critically low 43.0-75.0 [facility] Comment on above: Performed By: #### C BC #### [facility] [address] [place] [address] Dr. Mary Herzog Platelet mean volume (Bld) [Entitic vol] 10.9 fL Normal 9.5-13.5 [facility] Comment on above: Performed By: #### C BC #### [facility] [address] [place] [address] Dr. Mary Herzog PLT 279 103/ul Normal 150-450 [facility] Comment on above: Performed By: #### C BC #### [facility] [address] [place] [address] Dr. Mary Herzog RBC 5.12 106/ul Normal 4.20-5.40 [facility] Comment on above: Performed By: #### C BC #### [facility] [address] [place] [address] Dr. Mary Herzog WBC 18.3 103/ul Critically high 4.0-11.0 [facility] Comment on above: Performed By: #### C BC #### [facility] [address] [place] [address] Dr. Mary Herzog FERRITINon 05-11-2022 Ferritin [Mass/Vol] 97.0 ng/mL Normal 8.0-252.0 [facility] Comment on above: Performed By: #### F ERR #### [facility] [address] [place] [address] Dr. Mary Herzog PROF CHEM 8 (BAS METB)on Anion gap [Moles/Vol] 11.7 mmol/L Normal [facility] Comment on above: Performed By: #### V ITB12 #### [facility] [address] [place] [address] Dr. Mary Herzog Calcium [Mass/Vol] 10.1 mg/dL Normal 8.5-10.1 [facility] Comment on above: Performed By: #### V ITB12 #### [facility] [address] [address] [address] Mary Herzog Chloride [Moles/Vol] 101 mmol/L Normal 98-107 [facility] Comment on above: Performed By: #### V ITB12 #### [facility] [address] [place] [address] Dr. Mary Herzog CO2 [Moles/Vol] 30.7 mmol/L Normal 21.0-32.0 [facility] Comment on above: Performed By: #### V ITB12 #### [facility] [address] [place] [address] Dr. Mary Herzog Creatinine [Mass/Vol] 0.97 mg/dL Normal 0.55-1.02 [facility] Comment on above: Performed By: #### V ITB12 #### [facility] [address] [place] [address] Dr. Mary Herzog EGFR-AF TANZANIAN >60 Normal >=60 [facility] Comment on above: Performed By: #### V ITB12 #### [facility] [address] [place] [address] Dr. Mary Herzog EGFR-NON AF TANZANIAN 56 mL/min/1.73m2 Critically low >=60 [facility] Comment on above: Performed By: #### V ITB12 #### [facility] [address] [place] [address] Dr. Mary Herzog Glucose [Mass/Vol] 138 mg/dL Critically high 74-106 T [facility] Comment on above: Performed By: #### V ITB12 #### [facility] [address] [place] [address] Dr. Mary Herzog Potassium [Moles/Vol] 4.4 mmol/L Normal 3.5-5.1 [facility] Comment on above: Performed By: #### V ITB12 #### [facility] [address] [address] [address] Mary Herzog Sodium [Moles/Vol] 139 mmol/L Normal 136-145 [facility] Comment on above: Performed By: #### V ITB12 #### [facility] [address] [address] [address] Mary Herzog Urea nitrogen [Mass/Vol] 21.0 mg/dL Critically high 7.0-18 .0 [facility] Comment on above: Performed By: #### V ITB12 #### [facility] [address] [place] [address] Dr. Mary Herzog Urea nitrogen/Creatinine [Mass ratio] 21.6 mg/mg Normal [facility] Comment on above: Performed By: #### V ITB12 #### [facility] [address] [address] [address] Mary Herzog TSHon 05-11-2022 TSH 1.796 uIU/mL Normal 0.358-3.740 [facility] Comment on above: Performed By: #### V ITB12 #### [facility] [address] [place] [address] Dr. Mary Herzog Basophils Auto (Bld) [#/Vol] Ordered By: Sherwin Yepez on 10-17-2021 Basophils (Bld) [#/Vol] 0.1 10*3/uL 0.0-0.2 [facility] Basophils/100 WBC Auto (Bld) Ordered By: Sherwin Yepez on 10-17-2021 Basophils/100 WBC (Bld) 0.4 % . F [facility] Blood hemoglobin measurement (mass/volume)Ordered By: Sherwin Yepez on 10-17-2021 Hemoglobin (Bld) [Mass/Vol] 14.4 g/dL 11.8-15.4 [facility] Blood leukocytes automated c ount (number/volume)Ordered By: Sherwin Yepez on 10-17-2021 WBC (Bld) [#/Vol] 19.6 10*3/uL 4.5-11.0 [facility] Creatinine and Glomerular fi ltration rate.predicted panel (S/P/Bld)Ordered By: Sherwin Yepez on 10-17-2021 Creatinine [Mass/Vol] 0.97 mg/dL 0.44-1.03 [facility] Eosinophils Auto (Bld) [#/Vo l]Ordered By: [...] MCHC (RBC) [Mass/Vol] 33.0 g/dL 32.0-35.0 [facility] MCV Auto (RBC) [Entitic vol] Ordered By: Sherwin Yepez on 10-17-2021 MCV (RBC) [Entitic vol] 90.7 fL 80-100 [facility] Monocytes Auto (Bld) [#/Vol] Ordered By: Sherwin Yepez on 10-17-2021 Monocytes (Bld) [#/Vol] 1.2 10*3/uL 0.0-0.8 [facility] Monocytes/100 WBC Auto (Bld) Ordered By: Sherwin Yepez on 10-17-2021 Monocytes/100 WBC (Bld) 5.9 % . F [facility] Neutrophils Auto (Bld) [#/Vo l]Ordered By: Sherwin [facility] Platelet Estimate Normal Normal [facility] Platelet Morphology Comment Normal Normal [facility] [...] 10-17-2021 RBC (Bld) [#/Vol] 4.79 10*6/uL 3.60-5.00 [facility] RBC morphologyOrdered By: Wolf Yepez on 10-17-2021 RBC morphology finding Nom (Bld) N/A [facility] Serum or plasma chloride soham surement (moles/volume)Ordered By: Sherwin Yepez on 10-17-2021 Chloride [Moles/Vol] 100 mmol/L 95-114 [facility] Serum or plasma potassium me asurement (moles/volume)Ordered By: Sherwin Yepez on 10-17-2021 Potassium [Moles/Vol] 4.9 mmol/L 3.5-5.1 [facility] Serum or plasma sodium measu rement (moles/volume)Ordered By: Sherwin Yepez on 10-17-2021 Sodium [Moles/Vol] 133 mmol/L 136-146 [facility] Serum or plasma total carbon dioxide measurement (moles/volume)Ordered By: Sherwin Yepez on 10-17-2021 CO2 [Moles/Vol] 25.3 mmol/L 22.0-30.0 [facility] Serum or plasma urea nitroge n measurement (mass/volume)Ordered By: Sherwin Yepez on 10-17-2021 Urea nitrogen [Mass/Vol] 16 mg/dL 9-23 [facility] COVID-19 Positive/NegativeOr dered By: Sherwin Yepez on 10-12-2021 SARS-CoV-2 (COVID-19) N gene RUSSEL+probe Ql (Resp) Negative Negative [facility] Comment on above: Testing for SARS-CoV -2 by RT-PCR This test was developed and its performance characteristics determined by [employer] ([employer]) and validated at the [facility] [...] on 10-06-2021 Basophils (Bld) [#/Vol] N/A [facility] Basophils/100 WBC Auto (Bld) Ordered By: Sherwin Yepez on 10-06-2021 Basophils/100 WBC (Bld) N/A [facility] Basophils/100 WBC (Bld) 1 % 0-2 [facility] Blood hemoglobin measurement (mass/volume)Ordered By: Sherwin Yepez on 10-06-2021 Hemoglobin (Bld) [Mass/Vol] 14.7 g/dL 11.8-15.4 [facility] Blood leukocytes automated c ount (number/volume)Ordered By: Sherwin Yepez on 10-06-2021 WBC (Bld) [#/Vol] 17.0 10*3/uL 4.5-11.0 [facility] Creatinine and Glomerular fi ltration rate.predicted panel (S/P/Bld)Ordered By: Sherwin Yepez on 10-06-2021 Creatinine [Mass/Vol] 0.89 mg/dL 0.44-1.03 [facility] Eosinophils Auto (Bld) [#/Vo l]Ordered By: Sherwin Yepez on 10-06-2021 Eosinophils (Bld) [#/Vol] N/A [facility] Eosinophils/100 WBC Auto (Bl d)Ordered By: Sherwin Yepez on 07-15-2022 Eosinophils/100 WBC (Bld) N/A [facility] [...] 10-06-2021 MCHC (RBC) [Mass/Vol] 32.7 g/dL 32.0-35.0 [facility] MCV Auto (RBC) [Entitic vol] Ordered By: Sherwin Yepez on 10-06-2021 MCV (RBC) [Entitic vol] 90.9 fL 80-100 [facility] Monocyte %Ordered By: Sherwin mcclendon on 10-06-2021 Monocytes/100 WBC (Bld) 2 % 1-3 [facility] Monocytes Auto (Bld) [#/Vol] Ordered By: Sherwin Yepez on 10-06-2021 Monocytes (Bld) [#/Vol] N/A [facility] Monocytes/100 WBC Auto (Bld) Ordered By: Sherwin Yepez on 10-06-2021 Monocytes/100 WBC (Bld) N/A [facility] Monocytes/100 WBC Manual cnt (Bld)Ordered By: Sherwin Yepez on 10-06-2021 Monocytes/100 WBC (Bld) 6 % 2-11 [facility] Neutrophils Auto (Bld) [#/Vo l]Ordered By: Sherwin [...] [facility] Platelet Estimate Normal Normal [facility] Platelet Morphology Comment Normal Normal [facility] [...] 10-06-2021 RBC (Bld) [#/Vol] 4.95 10*6/uL 3.60-5.00 [facility] RBC morphologyOrdered By: Wolf Yepez on 10-06-2021 RBC morphology finding Nom (Bld) Normal [facility] Segmented neutrophils/100 WB C Manual cnt (Bld)Ordered By: Sherwin Yepez on 10-06-2021 Segmented neutrophils/100 WBC (Bld) 27 % 50-70 [facility] Serum or plasma calcium tamie urement (mass/volume)Ordered By: Sherwin Yepez on 10-06-2021 Calcium [Mass/Vol] 9.5 mg/dL 8.2-10.2 [facility] Serum or plasma chloride soham surement (moles/volume)Ordered By: Sherwin Yepez on 10-06-2021 Chloride [Moles/Vol] 99 mmol/L 95-114 [facility] Serum or plasma glucose tamie urement (mass/volume)Ordered By: Sherwin Yepez on 10-06-2021 Glucose [Mass/Vol] 98 mg/dL 70-100 [facility] Comment on above: ADA recommended refe rence range Random Glucose Reference Range is dependent on time and content of last meal. Glucose of more than 200 mg/dL in a nonstressed, ambulatory subject supports the diagnosis of Diabetes Mellitus. Serum or plasma potassium me asurement (moles/volume)Ordered By: Sherwin Yepez on 10-06-2021 Potassium [Moles/Vol] 4.7 mmol/L 3.5-5.1 [facility] Serum or plasma sodium measu rement (moles/volume)Ordered By: Sherwin Yepez on 10-06-2021 Sodium [Moles/Vol] 135 mmol/L 136-146 [facility] Serum or plasma total carbon dioxide measurement (moles/volume)Ordered By: Sherwin Yepez on 10-06-2021 CO2 [Moles/Vol] 27.3 mmol/L 22.0-30.0 [facility] Serum or plasma urea nitroge n measurement (mass/volume)Ordered By: Sherwin Yepez on 10-06-2021 Urea nitrogen [Mass/Vol] 19 mg/dL 9-23 [facility] CNPNon 12-01-2020 CNPN Telephone (HEMASA) MARITZA ESPINO ([id number]) 1945 F Date Time Provider Department 12/01/20 ANDREI MARIO During your visit today, we recorded the following information about you: Nicole Neal [facility] 12/01/2020 9:08 AM Signed Records faxed to [facility]. Patient to follow with Dr. Beckett. [...] lymphocytic leukemia) (HCC) [C91.1*12/11/2017 Encounter Status:Closed by CARLOS NAVARRETE NICOLE Nicolette on 12/01/20 [facility] 11-24-2020 CNPN Telephone (HEMASA) CONCHITAMARITZA Will ([id number]) 1945 F Date Time Provider Department 11/24/20 [...] [1688] Primary Visit Diagnosis:CLL (chronic lymphocytic leukemia) ([facility]) [C91.10] Order(s):CBC + DIFF [SQCBCDIF] Order #: [id number] STANDING COMP METABOLIC PANEL [SQCMP] Order #: [id number] STANDING LD LACTATE DEHYDRO [SQLD6] Order #: [id number] STANDING Prescriptions as of 11/30/2020 - amitriptyline [...] [C91.1*12/11/2017 Encounter Status:Closed by June on 11/30/20 [facility] CNOVSPon 06-01-2020 CNOVSP Visit (SP) Office (KENAN) MARITZA ESPINO ([id number]) 1945 F Date Time Provider Department 06/01/20 10:00 AM ANDREI MARIO During your visit today, we recorded the following information about you: Temperature Pulse Respiration Blood pressure 97.2 degrees 73/minute 18/minute 131/73 Weight Height 56.3 kg 1.579 m Andrei Mario MD 06/01/2020 10:13 AM Signed NAME: Maritza Espino CLINIC NO.: [id number] DATE OF SERVICE: June 01, 2020 Some elements in this clinic note that are critical to medical decision making have been carefully reviewed and included from a prior clinic note dated: December 09, 2019. Referring Provider: Evaristo Anguiano Additional Clinicians involved in Maritza Kenisha Srinivas's care: CC: CLL intermediate risk Stage 0 [...] Pattern LSI BETHEL (11q22.3): Normal Pattern LSI [id number] (13q14): Normal Pattern CEP 12: Normal Pattern LSI LAMP1 (13q34): Normal Pattern IGH/CCND1 t(11;14)(q13;q32): Negative INTERPRETATION: There is a normal pattern of hybridization with each of the probes tested. 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 1. 11/21/2016 Peripheral blood Flow Cy: Specimen originated from [facility] Specimen #: [id number] Submitting Physician: FREDERICK PEREZ II, DO SPECIMEN [...] REVIEW OF (more content not included)... Normal [facility] Comp Metabolic Panelon 06-01 Albumin [Mass/Vol] 4.3 g/dL Normal 3.9-4.9 [facility] ALP [Catalytic activity/Vol] 66 U/L Normal 34-123 [facility] ALT [Catalytic activity/Vol] 13 U/L Normal 7-38 [facility] Anion gap [Moles/Vol] 8 mmol/L Low 9-18 [facility] AST [Catalytic activity/Vol] 20 U/L Normal 13-35 [facility] Bilirubin [Mass/Vol] 0.5 mg/dL Normal 0.2-1.3 [facility] Calcium [Mass/Vol] 9.4 mg/dL Normal 8.5-10.2 [facility] Chloride [Moles/Vol] 101 mmol/L Normal 97-105 [facility] CO2 [Moles/Vol] 26 mmol/L Normal 22-30 [facility] Creatinine [Mass/Vol] 1.12 mg/dL High 0.58-0.96 [facility] eGFR- Amer. 58 Normal [facility] eGFR-All Other Races 48 . Normal [facility] Comment on above: Result Comment: eGFR (Estimated [...] GFR. Glucose [Mass/Vol] 97 mg/dL Normal 74-99 [facility] Comment on above: Result Comment: The [place] Diabetes Association (ADA) provides guidance for cutoff [...] Standards of Medical Care in Diabetes 2016, [place] [employer]. Diabetes Care. 2016.39(Suppl 1). Potassium [Moles/Vol] 4.5 mmol/L Normal 3.7-5.1 [facility] Protein [Mass/Vol] 6.4 g/dL Normal 6.3-8.0 [facility] Sodium [Moles/Vol] 135 mmol/L Low 136-144 [facility] Urea nitrogen [Mass/Vol] 32 mg/dL High 7-21 [facility] LDon 06-01-2020 LD 173 U/L Normal 135-214 [facility] Remote CBCDIF (for [facility] use only)on 06-01-2020 Abs Baso 0.10 k/uL Normal <0.11 [facility] Abs Christian 0.97 k/uL High <0.87 [facility] Abs Neut 5.24 k/uL Normal 1.45-7.50 [facility] Absolute nRBC <0.01 Normal <0.01 [facility] Basophils/100 WBC (Bld) 0.5 % Normal C [facility] DTYPE Auto Diff Normal [facility] Eosinophils (Bld) [#/Vol] 0.47 10*3/uL High <0.46 [facility] Eosinophils/100 WBC (Bld) 2.3 % Normal [facility] Erythrocyte distribution width (RBC) [Ratio] 13.3 % Normal 11.5-15.0 [facility] Hematocrit (Bld) [Volume fraction] 44.1 % Normal 36.0-46.0 [facility] Hemoglobin (Bld) [Mass/Vol] 14.3 g/dL Normal 11.5-15.5 [facility] Lymphocytes (Bld) [#/Vol] 13.74 10*3/uL High 1.00-4.00 [facility] Lymphocytes/100 WBC (Bld) 67.0 % Normal [facility] MCH 29.6 pG Normal 26.0-34.0 [facility] MCHC (RBC) [Mass/Vol] 32.4 g/dL Normal 30.5-36.0 [facility] MCV (RBC) [Entitic vol] 91.3 fL Normal 80.0-100.0 [facility] Monocytes/100 WBC (Bld) 4.7 % Normal C [facility] Neutrophils/100 WBC (Bld) 25.5 % Normal [facility] NRBCs 0.0 /100 WBC Normal 0 [facility] Platelet mean volume (Bld) [Entitic vol] 10.5 fL Normal 9.0-12.7 [facility] Platelets (Bld) [#/Vol] 309 10*3/uL Normal 150-400 [facility] RBC (Bld) [#/Vol] 4.83 10*6/uL Normal 3.90-5.20 [facility] WBC (Bld) [#/Vol] 20.52 10*3/uL High 3.70-11.00 [facility] CNPFarida 05-27-2020 PAULAN Telephone (KENAN) MARITZA ESPINO ([id number]) 1945 F Date Time Provider Department 05/27/20 [...] sis [D72.820] Order(s):CBC + DIFF (FOR REMOTE [facility] USE) [SQRCBCDF] Order #: [id number] FUTURE COMP METABOLIC PANEL [SQCMP] Order #: [id number] FUTURE LD LACTATE DEHYDRO [SQLD6] Order #: [id number] FUTURE Prescriptions as of 05/27/2020 Sig: METOPROLOL [...] by JAYSON SULLIVAN CNP on 05/27/20 Normal [facility] Vital Signs Date Time Vital Sign Value Performing Clinician Facility 11-11-2024 11:24040 Body height 157.48 cm Evaristo Anguiano MD Work Phone: [facility] 11-11-2024 11:24040 Body mass index (BMI) [Ratio] 21.2 kg/m2 Evaristo Anguiano MD Work Phone: [facility] 11-11-2024 11:24040 Body weight 52.61 kg Evaristo Anguiano MD Work Phone: [facility] 11-11-2024 11:24-040 Diastolic blood pressure 78 mm[Hg] Evaristo Anguiano MD Work Phone: [facility] 11-11-2024 11:24-040 Heart rate 77 /min Evaristo Anguiano MD Work Phone: [facility] 11-11-2024 11:24-0400 Systolic blood pressure 172 mm[Hg] Evaristo Anguiano MD Work Phone: [facility] 10-19-2024 09:53-0400 Body height 157.48 cm Evaristo Anguiano MD Work Phone: [facility] 10-19-2024 09:53-0400 Body mass index (BMI) [Ratio] 21.1 kg/m2 Evaristo Anguiano MD Work Phone: [facility] 10-19-2024 09:53-0400 Body weight 52.33 kg Evaristo Anguiano MD Work Phone: [phone] [place] [address] 10-19-2024 09:53-0400 Diastolic blood pressure 81 mm[Hg] Evaristo Anguiano MD Work Phone: [facility] 10-19-2024 09:53-0400 Heart rate 81 /min Evaristo Anguiano MD Work Phone: [facility] 10-19-2024 09:53-0400 Respiratory rate 12 /min Evaristo Anguiano MD Work Phone: [facility] 10-19-2024 09:53-0400 SaO2% (BldA) [Mass fraction] 98 % Evaristo Anguiano MD Work Phone: [facility] 10-19-2024 09:53-0400 Systolic blood pressure 149 mm[Hg] Evaristo Anguiano MD Work Phone: [facility] 09-15-2024 14:18-0400 Body height 157.48 cm Evaristo Anguiano MD Work Phone: [facility] 09-15-2024 14:18-0400 Body mass index (BMI) [Ratio] 20.8 kg/m2 Evaristo Anguiano MD Work Phone: [facility] 09-15-2024 14:18-0400 Body weight 51.7 kg Evaristo Anguiano MD Work Phone: [facility] 09-15-2024 14:18-0400 Diastolic blood pressure 90 mm[Hg] Evaristo Anguiano MD Work Phone: [facility] 09-15-2024 14:18-0400 Heart rate 98 /min Evaristo Anguiano MD Work Phone: [facility] 09-15-2024 14:18-0400 Systolic blood pressure 168 mm[Hg] Evaristo Anguiano MD Work Phone: [facility] 09-11-2024 09:03-0400 Body height 157.48 cm Evaristo Anguiano MD Work Phone: [facility] 09-11-2024 09:03-0400 Body mass index (BMI) [Ratio] 20.9 kg/m2 Evaristo Anguiano MD Work Phone: [facility] 09-11-2024 09:03-0400 Body weight 51.93 kg Evaristo Anguiano MD Work Phone: [facility] 09-11-2024 09:03-0400 Diastolic blood pressure 81 mm[Hg] Evaristo Anguiano MD Work Phone: [facility] 09-11-2024 09:03-0400 Heart rate 97 /min Evaristo Anguiano MD Work Phone: [facility] 09-11-2024 09:03-0400 Systolic blood pressure 130 mm[Hg] Evaristo Anguiano MD Work Phone: [facility] 06-15-2024 10:23-0400 Body height 157.48 cm [facility] 06-15-2024 10:23-0400 Body mass index (BMI) [Ratio] 21.4 kg/m2 [facility] 06-15-2024 10:23-0400 Body weight 53.07 kg [facility] 06-15-2024 10:23-0400 Diastolic blood pressure 84 mm[Hg] [facility] 06-15-2024 10:23-0400 Heart rate 87 /min [facility] 06-15-2024 10:23-0400 Respiratory rate 18 /min [facility] 06-15-2024 10:23-0400 SaO2% (BldA) [Mass fraction] 96 % [facility] 06-15-2024 10:23-0400 Systolic blood pressure 176 mm[Hg] [facility] 05-26-2024 13:12-0500 Body height 157.48 cm [facility] 05-26-2024 13:12-0500 Body mass index (BMI) [Ratio] 21 kg/m2 [facility] 05-26-2024 13:12-0500 Body weight 52.16 kg [facility] 05-26-2024 13:12-0500 Diastolic blood pressure 90 mm[Hg] [facility] 05-26-2024 13:12-0500 Heart rate 96 /min [facility] 05-26-2024 13:12-0500 Systolic blood pressure 166 mm[Hg] [facility] 01-02-2024 07:50-0400 Body height 157.48 cm [facility] 01-02-2024 07:50-0400 Body mass index (BMI) [Ratio] 20.9 kg/m2 [facility] 01-02-2024 07:50-0400 Body weight 51.93 kg [facility] 01-02-2024 07:50-0400 Diastolic blood pressure 82 mm[Hg] [facility] 01-02-2024 07:50-0400 Heart rate 86 /min [facility] 01-02-2024 07:50-0400 Respiratory rate 16 /min [facility] 01-02-2024 07:50-0400 SaO2% (BldA) [Mass fraction] 96 % [facility] 01-02-2024 07:50-0400 Systolic blood pressure 124 mm[Hg] [facility] 08-14-2023 13:10-0400 Diastolic blood pressure 84 mm[Hg] Papito Tri[facility] 08-14-2023 13:10-0400 Mean blood pressure 109 mm[Hg] Papito Tri[facility] 08-14-2023 13:10-0400 Systolic blood pressure 160 mm[Hg] Mohamad Mouchli [facility] 08-14-2023 13:07-0400 Blood Pressure Location Mohamad Mouchli [facility] 08-14-2023 13:07-0400 Diastolic blood pressure 83 mm[Hg] Mohamad Mouchli [facility] 08-14-2023 13:07-0400 Heart rate 92 /min Mohamad Mouchli [facility] 08-14-2023 13:07-0400 Respiratory rate 16 /min Mohamad Mouchli [facility] 08-14-2023 13:07-0400 Systolic blood pressure 162 mm[Hg] Mohamad Mouchli [facility] 07-10-2023 11:25-0400 Diastolic blood pressure 82 mm[Hg] Mohamad Mouchli [facility] 07-10-2023 11:25-0400 Heart rate 86 /min Mohamad Mouchli [facility] 07-10-2023 11:25-0400 Respiratory rate 17 /min Mohamad Mouchli [facility] 07-10-2023 11:25-0400 SaO2% (BldA) [Mass fraction] 95 % Mohamad Mouchli [facility] 07-10-2023 11:25-0400 Systolic blood pressure 141 mm[Hg] Mohamad Mouchli [facility] 07-10-2023 11:10-0400 Diastolic blood pressure 76 mm[Hg] Mohamad Mouchli [facility] 07-10-2023 11:10-0400 Heart rate 80 /min Mohamad Mouchli [facility] 07-10-2023 11:10-0400 Respiratory rate 12 /min Mohamad Mouchli [facility] 07-10-2023 11:10-0400 SaO2% (BldA) [Mass fraction] 98 % Mohamad Mouchli [facility] 07-10-2023 11:10-0400 Systolic blood pressure 119 mm[Hg] Mohamad Mouchli [facility] 07-10-2023 11:05-0400 Diastolic blood pressure 66 mm[Hg] Mohamad Mouchli [facility] 07-10-2023 11:05-0400 Heart rate 73 /min Mohamad Mouchli [facility] 07-10-2023 11:05-0400 Respiratory rate 13 /min Mohamad Mouchli [facility] 07-10-2023 11:05-0400 SaO2% (BldA) [Mass fraction] 96 % Mohamad Mouchli [facility] 07-10-2023 11:05-0400 Systolic blood pressure 106 mm[Hg] Mohamad Mouchli [facility] 07-10-2023 10:55-0400 Body temperature 97.52 [degF] Mohamad Mouchli [facility] 07-10-2023 10:50-0400 Respiratory rate 15 /min Mohamad Mouchli [facility] 07-10-2023 10:45-0400 Respiratory rate 15 /min Mohamad Mouchli [facility] 07-10-2023 10:40-0400 Respiratory rate 15 /min Papito [facility] 07-10-2023 08:49-0400 Blood Pressure Location [facility] 07-10-2023 08:49-0400 Body temperature 97.52 [degF] [facility] 07-03-2023 08:18-0400 Body height 157.48 cm MD Becker [facility] 07-03-2023 08:18-0400 Body mass index (BMI) [Ratio] 20.1 kg/m2 MD Becker [facility] 07-03-2023 08:18-0400 Body weight 49.95 kg MD Becker [facility] 07-03-2023 08:18-0400 Diastolic blood pressure 80 mm[Hg] MD Becker [facility] 07-03-2023 08:18-0400 Heart rate 91 /min [facility] 08:18-0400 Systolic blood pressure 134 mm[Hg] MD Becker [facility] 06-17-2023 10:28-0400 Body temperature 97.5 [degF] [facility] 10:28-0400 Body weight 49.89 kg MD Eugenio Beckett [facility] 06-17-2023 10:28-0400 Diastolic blood pressure 92 mm[Hg] MD Becker [facility] 06-17-2023 10:28-0400 Heart rate 96 /min [facility]-17-[facility] 10:28-0400 Respiratory rate 16 /min [facility]-17-2023 10:28-0400 SaO2% (BldA) [Mass fraction] 96 % MD Eugenio [facility] 06-17-2023 10:28-0400 Systolic blood pressure 169 mm[Hg] MD Becker [facility] 06-13-2023 09:42-0400 Body height 157.48 cm MD Becker [facility] 06-13-2023 09:42-0400 Body mass index (BMI) [Ratio] 20.3 kg/m2 MD Becker [facility] 06-13-2023 09:42-0400 Body weight 50.46 kg MD Becker [facility] 06-13-2023 09:42-0400 Diastolic blood pressure 87 mm[Hg] MD Becker [facility] 06-13-2023 09:42-0400 Heart rate 93 /min MD Becker [facility] 06-13-2023 09:42-0400 Systolic blood pressure 164 mm[Hg] MD Becker [facility] 05-27-2023 12:06-0500 Diastolic blood pressure 86 mm[Hg] Papito Tripp [facility] 05-27-2023 12:06-0500 Mean blood pressure 108 mm[Hg] Papito Tripp [facility] 05-27-2023 12:06-0500 Systolic blood pressure 151 mm[Hg] Papito Tripp [facility] 05-27-2023 12:01-0500 Blood Pressure Location Papito Tripp [facility] 05-27-2023 12:01-0500 Body temperature 97.34 [degF] Papito Tripp [facility] 05-27-2023 12:01-0500 Diastolic blood pressure 90 mm[Hg] Papito Tripp [facility] 05-27-2023 12:01-0500 Heart rate 91 /min Papito Chapali [facility] 05-27-2023 12:01-0500 Respiratory rate 14 /min Maryd Woodrowuchli [facility] 05-27-2023 12:01-0500 Systolic blood pressure 158 mm[Hg] Maryd Woodrowuchli [facility] 04-23-2023 08:45-0500 Body height 157.48 cm Evaristo Anguiano Other [facility] 04-23-2023 08:45-0500 Body mass index (BMI) [Ratio] 20.37 kg/m2 Evaristo Anguiano Other [facility] Other 04-23-2023 08:45-0500 Body weight 50.53 kg Evaristo Anguiano Other [facility] 04-23-2023 08:45-0500 Diastolic blood pressure 78 mm[Hg] Evaristo Anguiano Other [facility] 04-23-2023 08:45-0500 Systolic blood pressure 130 mm[Hg] Evaristo Anguiano Other [facility] 04-16-2023 13:30-0500 Body height 157.48 cm Evaristo Anguiano Other [facility] 04-16-2023 13:30-0500 Body mass index (BMI) [Ratio] 20.67 kg/m2 Evaristo Anguiano Other [facility] Other 04-16-2023 13:30-0500 Body weight 51.26 kg Evaristo Anguiano Other [facility] Other 04-16-2023 13:30-0500 Body weight 51.25 kg MD Eugenio Beckett [facility] 04-16-2023 13:30-0500 Diastolic blood pressure 78 mm[Hg] Evaristo Anguiano Other [facility] 04-16-2023 13:30-0500 SaO2% (BldA) [Mass fraction] 97 % Evaristo Anguiano Other [employer] Other 04-16-2023 13:30-0500 Systolic blood pressure 120 mm[Hg] Evaristo Anguiano Other [facility] 02-11-2023 13:15-0500 Body height 157.48 cm Evaristo Anguiano Other [facility] Other 02-11-2023 13:15-0500 Body mass index (BMI) [Ratio] 20.81 kg/m2 Evaristo Anguiano Other [employer] Other 02-11-2023 13:15-0500 Body weight 51.62 kg Evaristo Anguiano Other [employer] Other 02-11-2023 13:15-0500 Diastolic blood pressure 87 mm[Hg] Evaristo Anguiano Other [employer] Other 02-11-2023 13:15-0500 Systolic blood pressure 149 mm[Hg] Evaristo Anguiano Other [employer] Other 01-01-2023 08:30-0400 Body height 157.48 cm Evaristo Anguiano Other [employer] Other 01-01-2023 08:30-0400 Body mass index (BMI) [Ratio] 21.32 kg/m2 Evaristo Anguiano Other [employer] Other 01-01-2023 08:30-0400 Body weight 52.89 kg Evaristo Anguiano Other [employer] Other 01-01-2023 08:30-0400 Diastolic blood pressure 84 mm[Hg] Evaristo Anguiano Other [employer] Other 01-01-2023 08:30-0400 Systolic blood pressure 154 mm[Hg] Evaristo Anguiano Other [employer] Other 07-02-2022 09:30-0400 Body height 157.48 cm Evaristo Anguiano Other [employer] Other 07-02-2022 09:30-0400 Body mass index (BMI) [Ratio] 21.58 kg/m2 Evaristo Anguiano Other [employer] Other 07-02-2022 09:30-0400 Body weight 53.52 kg Evaristo Anguiano Other [employer] Other 07-02-2022 09:30-0400 Diastolic blood pressure 72 mm[Hg] Evaristo Anguiano Other [employer] Other 07-02-2022 09:30-0400 SaO2% (BldA) [Mass fraction] 98 % Evaristo Anguiano Other [employer] Other 07-02-2022 09:30-0400 Systolic blood pressure 138 mm[Hg] Evaristo Anguiano Other [employer] [facility] [place] Other 06-18-2022 10:53-0400 Body temperature 97.8 [degF] MD Eugenio Beckett [facility] 06-18-2022 10:53-0400 Body weight 53.52 kg MD Eugenio Beckett [facility] 06-18-2022 10:53-0400 Diastolic blood pressure 77 mm[Hg] MD Becker [facility] 06-18-2022 10:53-0400 Heart rate 91 /min MD Eugenio Beckett [facility] 06-18-2022 10:53-0400 Respiratory rate 16 /min MD Becker [facility] 06-18-2022 10:53-0400 SaO2% (BldA) [Mass fraction] 94 % MD Becker [facility] 06-18-2022 10:53-0400 Systolic blood pressure 148 mm[Hg] MD Becker [facility] 05-11-2022 09:45-0500 Body height 157.48 cm Evaristo Anguiano Other [employer] [facility] [place] Other 05-11-2022 09:45-0500 Body mass index (BMI) [Ratio] 21.95 kg/m2 Evaristo Anguiano Other [employer] Other 05-11-2022 09:45-0500 Body weight 54.43 kg Evaristo Anguiano Other [employer] Other 05-11-2022 09:45-0500 Diastolic blood pressure 82 mm[Hg] Evaristo Anguiano Other [employer] Other 05-11-2022 09:45-0500 SaO2% (BldA) [Mass fraction] 97 % Evaristo Anguiano Other [employer] Other 05-11-2022 09:45-0500 Systolic blood pressure 130 mm[Hg] Evaristo Anguiano Other [employer] Other 04-05-2022 15:30-0500 Body height 157.48 cm Evaristo Anguiano Other [employer] Other 04-05-2022 15:30-0500 Body mass index (BMI) [Ratio] 21.58 kg/m2 Evaristo Anguiano Other [employer] Other 04-05-2022 15:30-0500 Body weight 53.52 kg Evaristo Anguiano Other [facility] Other 04-05-2022 15:30-0500 Diastolic blood pressure 88 mm[Hg] Evaristo Anguiano Other [facility] Other 04-05-2022 15:30-0500 SaO2% (BldA) [Mass fraction] 98 % Evaristo Anguiano Other [facility] Other 04-05-2022 15:30-0500 Systolic blood pressure 140 mm[Hg] Evaristo Anguiano Other [facility] Other 10-17-2021 15:57-0400 Body temperature 97.6 [degF] MD Evaristo Anguiano Work Phone: [facility] 10-17-2021 15:57-0400 Diastolic blood pressure 67 mm[Hg] MD Evaristo Anguiano Work Phone: [facility] 10-17-2021 15:57-0400 Heart rate 76 /min MD Evaristo Anguiano Work Phone: [facility] 10-17-2021 15:57-0400 Respiratory rate 14 /min MD Evaristo Anguiano Work Phone: [facility] 10-17-2021 15:57-0400 SaO2% (BldA) [Mass fraction] 91 % MD Evaristo Anguiano Work Phone: [facility] 10-17-2021 15:57-0400 Systolic blood pressure 112 mm[Hg] MD Evaristo Anguiano Work Phone: [facility] 10-17-2021 09:45-0400 Body height 160.02 cm MD Evaristo Anguiano Work Phone: [facility] 10-17-2021 08:42-0400 Inhaled oxygen flow rate 2 L/min MD Evaristo Anguiano Work Phone: [facility] 10-17-2021 05:08-0400 Body weight 55.3 kg MD Evaristo Anguiano Work Phone: [facility] 10-16-2021 11:25-0400 Body mass index (BMI) [Ratio] 20 kg/m2 MD Evaristo Anguiano Work Phone: [facility] 06-16-2021 14:43-0400 Body height 159 cm MD Eugenio Beckett [facility] Encounters Encounter Date Encounter Type Care Provider Facility Start: 11-11-2024 End: 11-11-2024 ambulatory Evaristo Anguiano MD Work Phone: [facility] Work Phone: Start: 11-11-2024 End: 11-11-2024 Patient encounter procedure Evaristo Anguiano MD -[facility] Work Phone: Start: 10-26-2024 Non-patient / Non-visit Jade Mott CMA -[facility] Work Phone: Start: 10-25-2024 Non-patient / Non-visit Jason Mott DO -[facility] Work Phone: Start: 10-19-2024 Patient encounter procedure Evaristo Anguiano MD Work Phone: [facility] Start: 10-19-2024 End: 10-19-2024 ambulatory Evaristo Anguiano MD Work Phone: [facility] Work Phone: Start: 10-19-2024 End: 10-19-2024 Patient encounter procedure Evaristo Anguiano MD -[facility] Work Phone: Start: 09-15-2024 End: 09-15-2024 Patient encounter procedure Evaristo Anguiano MD -[facility] Work Phone: Start: 09-11-2024 End: 09-11-2024 Patient encounter procedure Evaristo Anguiano MD -[facility] Work Phone: Start: 06-15-2024 End: 06-15-2024 ambulatory [facility] Work Phone: Start: 06-15-2024 End: 06-15-2024 Patient encounter procedure [facility] Work Phone: Start: 06-01-2024 End: 06-01-2024 ambulatory Papito Tripp Facility:[facility] Start: 05-26-2024 End: 05-26-2024 ambulatory [facility] Work Phone: Start: 05-26-2024 End: 05-26-2024 Patient encounter procedure [facility] Work Phone: Start: 01-02-2024 End: 01-02-2024 ambulatory [facility] Work Phone: Start: 01-02-2024 End: 01-02-2024 Patient encounter procedure [facility] Work Phone: Start: 08-14-2023 End: 08-14-2023 ambulatory Papito Tripp Facility:[facility] Start: 08-14-2023 End: 08-14-2023 Patient encounter procedure Papito Tripp [facility] Start: 07-10-2023 End: 07-10-2023 Patient encounter procedure Enidmilanojeovany Tripp [facility] Start: 07-03-2023 End: 07-03-2023 ambulatory MD Eugenio Beckett [facility] Work Phone: Start: 07-03-2023 End: 07-03-2023 Patient encounter procedure MD Eugenio Beckett [facility] Work Phone: Start: 06-28-2023 Non-patient / Non-visit MD Eugenio Beckett [facility] Work Phone: Start: 06-17-2023 Registered Recurring MD Eugenio gregorio [facility] Work Phone: Start: 06-17-2023 End: 06-17-2023 ambulatory MD Eugenio Beckett [facility] Work Phone: Start: 06-17-2023 End: 06-17-2023 Patient encounter procedure MD Eugenio Beckett [facility] Work Phone: Start: 06-13-2023 End: 06-13-2023 ambulatory MD Eugenio Beckett [facility] Work Phone: Start: 06-13-2023 End: 06-13-2023 Patient encounter procedure MD Eugenio Beckett [facility] Work Phone: Start: 06-12-2023 Registered Recurring MD [facility] Work Phone: Start: 05-27-2023 End: 05-27-2023 Patient encounter procedure Papito Tripp [facility] Start: 04-30-2023 End: 04-30-2023 ambulatory Evaristo Anguiano Other [employer] Other Start: 04-30-2023 Telephone encounter Evaristo Anguiano [facility] Start: 04-23-2023 End: 04-23-2023 ambulatory Evaristo Anguiano Other [employer] Other Start: 04-23-2023 Office outpatient visit 15 minutes Evaristo Anguiano [facility] Start: 04-23-2023 End: 04-23-2023 Patient encounter procedure MD Eugenio Beckett [facility]- Start: 04-16-2023 End: 04-16-2023 ambulatory Evaristo Anguiano Other [employer] Other Start: 04-16-2023 Office outpatient visit 15 minutes Evaristo Anguiano [facility] Start: 04-16-2023 End: 04-16-2023 Patient encounter procedure MD Eugenio Beckett [facility]- Start: 02-11-2023 End: 02-11-2023 ambulatory Evaristo Anguiano Other [employer] Other Start: 02-11-2023 Office outpatient visit 15 minutes Evaristo Anguiano [facility] Start: 02-11-2023 Telephone encounter Evaristo Anguiano [facility] Start: 01-14-2023 End: 01-14-2023 ambulatory Evaristo Anguiano Other [employer] Other Start: 01-14-2023 Telephone encounter Evaristo Annmarie [facility] Start: 01-01-2023 End: 01-01-2023 ambulatory Evaristo Anguiano Other [employer] Other Start: 01-01-2023 Office outpatient visit 25 minutes Evaristo Anguiano [facility] Start: 08-22-2022 End: 08-22-2022 ambulatory KRISHAN GONSALEZ Facility:[facility] Start: 07-06-2022 End: 07-07-[address] NONE LISTED REQUEST Facility:[facility] Start: 07-02-2022 End: 07-02-2022 ambulatory Evaristo Anguiano Other [employer] Other Start: 07-02-2022 Office outpatient visit 15 minutes Evaristo Anguiano [facility] Start: 05-18-2022 End: 05-18-2022 ambulatory Evaristo Anguiano Other [employer] Other Start: 05-18-2022 Telephone encounter Evaristo Annmarie [facility] Start: 05-17-2022 End: 05-17-2022 ambulatory Evaristo Anguiano Other [employer] Other Start: 05-17-2022 Telephone encounter Evaristo Anguiano [facility] Start: 05-11-2022 Office outpatient visit 15 minutes Evaristo Anguiano [facility] Start: 05-11-2022 End: 05-12-[address] EVARISTO ANGUIANO [facility] [employer] Other Start: 05-01-2022 End: 05-01-2022 ambulatory Evaristo Anguiano Other [facility] [employer] Other Start: 05-01-2022 Telephone encounter Evaristo Anguiano [facility] Start: 04-05-2022 End: 04-05-2022 ambulatory Evaristo Anguiano Other [facility] Other Start: 04-05-2022 Office outpatient visit 15 minutes Evaristo Anguiano [facility] Start: 10-16-2021 End: 10-17-2021 Admission to same day surgery center MD Evaristo Anguiano Work Phone: [facility] [place] Start: 10-12-2021 End: 10-12-2021 Patient encounter procedure MD Evaristo Anguiano Work Phone: [facility] Pgf-Csa-Rhegrsqf Testing Start: 10-06-2021 End: 10-06-2021 Patient encounter procedure MD vEaristo Anguiano Work Phone: [facility] Ltt-Zuk-Yxozzabc Testing Start: 08-31-2021 End: 08-31-2021 Departed Referred MD Evaristo Anguiano Work Phone: [facility] Ctr-Lab [facility] [place] Start: 08-29-2021 End: 08-29-2021 Patient encounter procedure MD Evaristo Anguiano Work Phone: [facility] [place] Procedures Date Procedure Procedure Detail Performing Clinician Start: 07-10-2023 Colonoscopy Papito bennett Comment on above: poor prep, diverticu losis t/o Start: 10-16-2021 Laparoscopic fundoplication MD Evaristo Anguiano Work Phone: Start: 03-25-2021 Hiatal hernia (disorder) Papito Tripp Start: 03-25-2017 Colonoscopy Papito bennett Start: 03-25-2013 Elbow region structu re (body structure) Papito Chapablanca Start: 08-23-1997 Gallbladder structur e (body structure) Maryjeovany Sammiblanca Tonsillar structure (palatine) (body structure) Maryjeovany Sammiblanca Plan of Treatment Date Care Activity Detail Author Start: 05-26-2024 Patient referral [facility] Work Phone: Start: 10-17-2021 Administration of pr ophylactic treatment [facility] Work Phone: Start: 10-17-2021 [facility] Work Phone: Start: 06-16-2021 [facility] Comprehensive metabo lic 1999 panel - Serum or Plasma [facility] Comprehensive metabo lic 1999 panel - Serum or Plasma [facility] EKG 12 [facility] EKG 12 channel panel [facility] MG Breast - bilateral Screening [facility] Patient referral [facility] Work Phone: US Heart Transthoracic [facility] US.doppler Carotid a rteries - bilateral [facility] XR Shoulder - right [facility] Immunizations Immunization Date Immunization Notes Care Provider Fa cility 12-25-2022 influenza virus [facility], [facility] 02-13-2022 COVID-19 Pfizer (Pediatric) Evaristo Anguiano Other [facility] 02-13-2022 SARS-CoV-2 (COVID-19 ) [id number] Papito Tripp [facility] 12-13-2021 influenza virus vaccine, split virus (incl. purified surface antigen) Evaristo Anguiano Other [employer] Other 12-13-2021 influenza virus vaccine, unspecified formulation Mohamad Mouchli [facility] 01-02-2021 influenza virus vaccine, split virus (incl. purified surface antigen) Evaristo Anguiano Other [employer] Other 01-02-2021 influenza virus vaccine, unspecified formulation Mohamad Mouchli [facility] 12-19-2020 COVID-19 mRNA Comirnaty (Pfizer) MD Evaristo Anguiano Work Phone: [facility] Comment on above: Result Comment: 2023: [id number] 05-18-2020 COVID-19 mRNA Comirnatwinsome (Pfizer) MD Evaristo Anguiano Work Phone: [facility] Comment on above: Result Comment: 2023: [id number] 04-27-2020 COVID-19 mRNA Comirnaty (Pfizer) MD Evaristo Anguiano Work Phone: [facility] Comment on above: Result Comment: 2023: [id number] 11-29-2019 influenza virus vaccine, unspecified formulation Mohamad Mouchli [facility] 12-23-2018 influenza virus vaccine, unspecified formulation Mohamad Mouchli [facility] 01-31-2018 pneumococcal polysaccharide vaccine, 23 valent Evaristo Anguiano Other [facility] 01-20-2018 influenza virus vaccine, unspecified formulation Mohamad Mouchli [facility] 01-21-2017 influenza virus vaccine, unspecified formulation Mohamad Mouchli [facility] 01-21-2017 pneumococcal conjuga te vaccine, 13 kathy Anguiano Other [facility] Payers Date Payer Category Payer Medicare [id number] [id number] 2023 Unknown [id number] 1957 Medicare [id number] 1957 Self-pay [id number] 1957 Unknown [id number] 1945 Unknown [id number] [id number] [id number] 1945 Unknown [id number] [id number] [id number] 1945 Unknown [id number] 2.16.84 [id number] 1945 Unknown [id number] 2.16.8 [id number] 1945 Unknown [id number] [id number] Unknown [id number] [id number] [id number] Social History Date Type Detail Facility Start: 10-06-2021 End: 10-19-2024 Tobacco smoking status NHIS Never smoked tobacco (finding) [facility] Start: 1945 Sex Assigned At Female F [facility] Sex Assigned At [facility] Start: 05-26-2024 End: 06-15-2024 Sex Female (finding) [facility] Goals Date Patient Goal Desired Activity /State Functional Status Date Assessment Result Facility 08-14-2023 Functional Status N/A [facility] 07-10-2023 Functional Status N/A [facility] 05-27-2023 Functional Status N/A [facility] 10-17-2021 Functional status Patient at Baseline [facility] Work Phone: Mental Status Date Assessment Result Facility 10-17-2021 Cognitive function Cognitive Sta tus Patient at Baseline [facility] Work Phone: Clinical Notes 06-01-2020 to 09-11-2024 Note Date & Type Note Facility 09-11-2024 Evaluation note Diagnosis Onset Date Resolution Urticaria of unknown origin acute September 11, 2024 9:03am Shingles rash acute September 15, 2024 2:00pm Family history of diabetes mellitus acute October 19 9:49am Screening mammogram for breast cancer acute October 19 9:49am [facility] Work Phone: 1(560) 533-385906-20-2025 Evaluation note* Diagnosis Onset Date Resolution Status Admit Date Urticaria of unknown origin acute September 11, 2024 9:03am Shingles rash acute September 15, 2024 2:00pm CLL (chronic lymphocytic leukemia) acute October 19, 2024 9:49am Essential hypertension acute 2024 9:49am Family history of diabetes mellitus acute October 19, 2024 9:49am Medicare annual wellness vis it, subsequent acute October 19, 2024 9:49am Screening mammogram for yessenia st cancer acute October 19, 2024 9:49am Essential hypertension acute 2024 11:19am [facility] Work Phone: 1(463) 351-682303-24-2025 [facility] [place] [address] Cancer Center Note Signed Patient: Maritza Espino MR#: [id number] 1524 : 1945 Acct:[id number] Age/Sex: 79 / F Type: REG AMB Date of Service: 06/15/24 Copies to: Evaristo Anguiano MD~ Assessment & Plan A/P Patient Instructions: cbc, cmp, ldh prior to f/u in 1 year. CHEMO PLAN No Active Chemotherapy History of Present Illness HPI Plan Chronic lymphocytic leukemia Diagnosed in 2017 MEDRANO stage 0 Has not required treatment. [...] well. She followed initially with me at [facility] and then Dr. Beckett at [facility] and now she is following with me [...] follows with Dr. Evaristo Anguiano, lives in [place]. she is on a steroid for a [...] No concerns voiced at time of intake. [facility] History Attestation statement: The following information [...] DO DD/ 1019 Signed By: 06/15/24 1044 [facility]03-04-2025 Evaluation note* Diagnosis Onset Date Resolution Status Admit Date Essential hypertension acute [facility] 2024 1:09pm GERD without esophagitis acute May 26, 2024 1:09pm Irregular heart rate acute George h 2024 1:09pm CLL (chronic lymphocytic leukemia) acute June 15, 2024 10:11am Hiatal hernia acute June 15, 2024 10:11am [facility] Work Phone: 1(372) 467-550404-17-2024 Evaluation + Plan noteExtracted from: Title:ANES Post-operative Note - General Author: Darius Nelson Jr., DO Date:07/10/23 Plan Transfer/Discharge: Transfer/Discharge Discharge when meets criteria ( From PACU to Ambulatory Surgery Unit, and To home ). Extracted from: Title:ANES Pre-operative Note - Endo Author:Darius Elizabeth Jr., DO Date:07/10/23 Plan [place] [employer] An[employer]hesi[employer] (ASA) physical status classification: Class III. Anesthetic Preoperative Plan: Anesthesia General, and -TIVA. Future Scheduled Tests Laboratory* Calprotectin, Fecal 06/24/23 * Fecal WBC Lactoferrin 06/24/23 * Giardia lamblia, Direct Detection EIA 06/24/23 * O & P Exam, Routine 06/24/23 * Rotavirus Ab 06/24/23 * Clostridium Difficile PCR 06/24/23 * Enteric Panel by PCR 06/24/23 [facility]04-17-2024 Hospital Discharge instructions Patient Education 07/10/2023 11:13:46 Colonoscopy, Care After Surgery Salam (CUSTOM) Colonoscopy Care After Surgery Please read the instructions outlined below and refer to this sheet in the next few weeks. These discharge instructions provide you with general information on [facility] Your doctor may also give you [...] 3 times a day. General instructions Take gxos-dzd-fbknmob and prescription medicines only as told by [...] provider. Document Revised: 09/20/2021 Document Reviewed: 09/20/2021 [employer] Patient Education 2022 [employer]. 07/10/2023 11:13:46 Diverticulosis MAGR (CUSTOM) Diverticulosis Many [...] unsweetened, w/added ascorbic acid 1 cup 0.5 Plumas 1 cup 0.7 Vegetables Cooked Green beans 1 cup 4.0 Carrots 1/2 cup sliced 2.3 Peas 1 cup 8.8 Potato (baked, with skin) 1 medium potato 3.8 [employer] (with peel) 1 cucumber 1.5 Lettuce 1 [...] 8.7 Peanuts 1/2 cup 7.9 Chart from UpDate 2013. SEEK IMMEDIATE MEDICAL CARE IF: You [...] Information adapted from: ExitCare Patient Information 2009 [employer]. [employer] 2013 [email or web address] Follow Up Care 07/02/2023 08:30:53 With:Papito Tripp Address: [address] [place] [address], [facility] [address] [place] [address]- [phone] Business (1) When: Unknown Comments:office wll call for follow up [facility]04-01-2024 Evaluation + Plan note Future Scheduled Tests Laboratory* Calprotectin, Fecal 06/24/23 * Fecal WBC Lactoferrin 06/24/23 * Giardia lamblia, Direct Detection EIA 06/24/23 * O & P Exam, Routine 06/24/23 * Rotavirus Ab 06/24/23 * Clostridium Difficile PCR 06/24/23 * Enteric Panel by PCR 06/24/23 [facility] 01-30-2024 Evaluation note* Encounter Date Diagnosis Assessment Notes Treatment Notes Treatment Clinical Notes Mar, Acute diarrhea (ICD-10 - R19.7) Trial of levsin, pt requests referral to [employer] Other 01-23-2024 Evaluation note* Encounter Date Diagnosis Assessment Notes Treatment Notes Treatment Clinical Notes Mar, Acute diarrhea (ICD-10 - R19.7) advised taking Imodium 1-2x daily and resuming normal rather than a BRAT diet. Will call her on 04/18 and check on her symptoms. Pt agrees she feels well, except when she has to use BR suddenly. She was transferred to [place] in January and she is concerned this is related to a recurrance of that problem. [employer] Other 11-20-2023 Evaluation note* Encounter Date Diagnosis Assessment Notes Treatment Notes Treatment Clinical Notes Jan, Pneumatosis intestinalis (ICD-10 - K63.89) Completely resolved. Reviewed notes from [facility]. Pt is back to a normal diet [...] symptoms. Any developing patterns. Stay well hydrated. [employer] Other 10-10-2023 Evaluation note* Encounter Date Diagnosis [...] intermittent and no worse. Continue daily MVI. [employer] Other 05-31-2023 NotePROCEDURE: XR ELBOW LT MIN 3 VIEWS HISTORY: Pain ; acute left elbow pain; no known injury COMPARISON: None. FINDINGS: BONES:No fracture, acute abnormality, or significant arthropathy. SOFT TISSUES:No visible soft tissue swelling. EFFUSION:None visible. OTHER: Negative. IMPRESSION: 1. No acute bone abnormality or significant degenerative joint disease. Electronically authenticated by: JUMANA YBARRA Date: 2022-08-22 09:05[facility]05-31-2023 NotePROCEDURE: XR ANKLE RT MIN 3 VIEWS [...] Electronically authenticated by: JUMANA YBARRA Date: 2022-08-22 09:01[facility]04-10-2023 Evaluation note* Encounter Date Diagnosis Assessment Notes [...] I10) chronic - stable on present med. [employer] Other 02-24-2023 Evaluation note* Encounter Date Diagnosis Assessment Notes Treatment Notes Treatment Clinical Notes Apr, Paresthesia (ICD-10 - R20.2) [employer] Other 02-17-2023 Evaluation note* Encounter Date Diagnosis [...] stable. continue present meds. Due for labs. [employer] Other 01-12-2023 Evaluation note* Encounter Date Diagnosis [...] tolerated procedure well. Post care instructions given [employer] Other 07-26-2022 Progress note Author Sherwin Yepez [facility] October 17, 2021 8:28am Note Date/Time October 17, 2021 8:28 am [facility] [address] [place] [address] General Surgery Progress Note Signed Patient: Maritza Espino MR#: [id number] 1524 : 1945 Acct:[id number] Age/Sex: 76 / F Adm Date: 2 Loc: 4N Room: 6T4651-8 Type : REG SDC Attending Dr: Sherwin Yepez DO Copies to: [...] Mg/0.4 Ml Syringe) 40 mg SUBCUT DAILY@1000 [facility] Stop: 10/17/22 09:59 Famotidine (Famotidine/Pf 20 [...] Kcl) 1,000 mls @ 80 mls/hr IV .[id number] [facility] Stop: 10/16/22 17:07 Last Admin: 10/17/21 06:37 Dose: 80 mls/hr Metoprolol Tartrate (Metoprolol Tartrate 5 Mg/5 Ml Vial) 5 mg IV-PUSH Q6H [facility] Stop: 10/16/22 17:59 Last Admin: 10/17/21 [...] % (Auto) 64.8, Lymph % (Auto) 28.9, Christian % (Auto) 5.9, Eos % (Auto) 0.0, Baso % (Auto) 0.4, Neut # (Auto) 12.7 H, Lymph # (Auto) 5.7 H, Christian # (Auto) 1.2 H, Eos # (Auto) [...] signed by DO Sherwin Yepez> 10/17/21 0828 [facility] Work Phone: [phone]) 730-850003-10-2021 NoteHNO ID: [id number] Author: Andrei Mario Service: ? Author Type: Physician Type: Progress Notes Filed: 06/01/2020 10:13 AM Note Text: NAME: Maritza Espino CLINIC NO.: [id number] DATE OF SERVICE: June 01, 2020 Some [...] Pattern LSI BETHEL (11q22.3): Normal Pattern LSI L22P325 (13q14): Normal Pattern CEP 12: Normal Pattern LSI LAMP1 (13q34): Normal Pattern IGH/CCND1 t(11;14)(q13;q32): Negative INTERPRETATION: There is a normal pattern of hybridization with each of the probes tested. 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 1. 11/21/2016 Peripheral blood Flow Cy: Specimen originated from [facility] Specimen #: [id number] Submitting Physician: FREDERICK PEREZ II, DO SPECIMEN [...] area is 1.57 meters (more content not included)...[facility] + Plan note No data available for this section [facility] Evaluation noteNo assessment information available [facility] Work Phone: Evaluation note* Diagnosis Onset Date Resolution Status Hiatal hernia acute [facility] Work Phone: Evaluation noteNo [employer] Other Evaluation note* Diagnosis Onset Date Resolution Status CLL (chronic lymphocytic leukemia) acute Hiatal hernia acute [facility] Work Phone: Evaluation note* Diagnosis Onset Date Resolution Status CLL (chronic lymphocytic leukemia) acute Contact dermatitis acute Irregular heart rate acute CLL (chronic lymphocytic leukemia) acute CLL (chronic lymphocytic leukemia) acute Hiatal hernia acute [facility] Work Phone: Evaluation note* Diagnosis Onset Date Resolution Status CLL (chronic lymphocytic leukemia) acute Contact dermatitis acute Irregular heart rate acute CLL (chronic lymphocytic leukemia) acute CLL (chronic lymphocytic leukemia) acute Hiatal hernia acute CLL (chronic lymphocytic leukemia) acute Essential hypertension acute Weight loss acute [facility] Work Phone: Evaluation note* Diagnosis Onset Date Resolution Status Right shoulder pain acute [facility] Work Phone: Evaluation note* Diagnosis Onset Date Resolution Status Admit Date Essential hypertension acute [facility] 2024 1:09pm GERD without esophagitis acute May 26, 2024 1:09pm Irregular heart rate acute [facility] 2024 1:09pm [facility] Work Phone: Hislddn general Narrative - Reported* Type Description Date [...] History hernia repair Hospitalization History see above [employer] Other History general Narrative - Reported* Type Description [...] History hernia repair Hospitalization History [facility], [place] 2-2 3 [employer] Other Hospital Discharge instructions No data available for this section [facility] Hospital Discharge instructionsAmbulatory Orders* Referral to Gastroenterology Time Frame: 05/26/24, Location: None Selected [facility] Work Phone: Progrtds note No data available for this section [facility] Progress note Author Frederick Perez [facility] June 17, 2023 10:54am Note Date/Time June 17, 2023 10: 26am [facility] [place] [address] Cancer Center Note Signed Patient: Maritza Espino MR#: [id number] 1524 : 1945 Acct:[id number] Age/Sex: 78 / F Type: REG AMB [...] well. She followed initially with me at [facility] and then Dr. Beckett at [facility] and now she is following with me [...] follows with Dr. Evaristo Anguiano, lives in [place]. she is on a steroid for a [...] visit for CLL and go over labs [facility] Medical History Medical History Large hiatal [...] DD/ 1024 Signed By: <Electronically signed by Frederikc Perez II, DO> 06/17/23 1054 [facility] Work Phone: Progress note Author Frederick Perez [facility] Note Date/Time June 15, 2024 10: 44[facility] [place] [address] Cancer Center Note Signed Patient: Maritza Espino MR#: [id number] 1524 : 1945 Acct:[id number] Age/Sex: 79 / F Type: REG AMB [...] well. She followed initially with me at [facility] and then Dr. Beckett at [facility] and now she is following with me [...] follows with Dr. Evaristo Anguiano, lives in [place]. she is on a steroid for a [...] No concerns voiced at time of intake. [facility] History Attestation statement: The following information [...] by Frederick Perez II, DO> 06/15/24 1044 [facility] Work Phone: Reason for referral (narrative)* Reason Pt has family i n Josh, Admitted to [facility] in the fall, discharge summary scanned in; diarrhea, bowel changes; did not have a colonoscopy in the fall Diagnosis 1 Acute diarrhea (R19. 7) Referral Organization [facility] Referring Provider First Name Evaristo Referring Provider Last Name Annmarie Referring Provider Specialty Family [facility] cine Referred Organization [facility] Referred Provider Naty Belle Referred Address [address] [place] [id number] Referred Provider Specialty Gastroentero logy Referral Priority Routine General Notes Silvia Pereira 10:15:03 AM >received today, attachments made, waiting for notes to be locked. [employer] Other Reason for referral (narrative)No reason for referral information availablePro[facility] Work Phone: Summary Purpose Family History Relationship [...] 2024 9:49am Screening mammogram for breast cancer Ju [place] 2024 9:49am Chief Complaint Admit Date rash September 11, 2024 9:03 am Rash Spreading September 15, 2024 2:00 pm wellness October 19, 2024 9:49 am Amb Documentation October 26, 2024 10: 35am TB ER f/u November 11, 2024 11 :19am Reason for Visit Admit Date Urticaria of unknown origin September 11 025 9:03am Shingles rash September 15, 2024 2:00 pm CLL (chronic lymphocytic leukemia) October 19, 2024 9:49am Essential hypertension October 19, 2024 9 :49am Family history of diabetes mellitus October 19, 2024 9:49am Medicare annual wellness visit, arsen nt October 19, 2024 9:49am Screening mammogram for breast cancer Ju [place] 2024 9:49am Essential hypertension November 11, 2024 11:19am Reason for Referral Reason 06/25/22 [facility] office, Last OV and labs. Will also scan in labs from last year to send along. Thank you Diagnosis 1 Paresthesia (R20.2) Referral Organization [facility] Referring Provider First Name Evaristo Referring Provider Last Name Annmarie Referring Provider Specialty Family [facility] cine Referred Organization [facility] Referred Provider Sharon Davila Referred Address [address] [place], [place],[address] Referred Provider Specialty Neurology Referral Priority Routine Referral Appointment Date 2022-06-25 General Notes Silvia Pereira 11:05:24 AM >received today, attachments made, form filled out, referral faxed Silvia Pereira 05/31/2022 10:06:11 AM >faxed first attempt letter Silvia Pereira 06/05/2022 08:49:35 AM >RECEIVED FAX WITH APPT DATE Additional Source Comments INFORMATION SOURCE (unrecogn ized section and content) DATE CREATED AUTHOR 04/26/2021 [facility] DATE CREATED AUTHOR AUTHOR'S ORGANIZ ATION 08/31/2022 [facility] DATE CREATED AUTHOR AUTHOR'S ORGANIZ ATION 06/12/2024 [facility] DATE CREATED AUTHOR AUTHOR'S ORGANIZ ATION 07/27/2024 [facility] Care Teams (unrecognized sec tion and [...] Provider Active Start: June 17, 2023 Eugenio Bekcett MD Referring Provider Active Sta rt: June [...] Anguiano MD Primary Care Provider Active Start: October 19, 2024 End: October 19, 2024 Evaristo Anguiano MD Attending Provider Active St art: October 19, 2024 End: October 19, 2024 Team Status: Active Member Role Status Dates Evaristo Anguiano MD Primary Care Provider Active Start: October 25, 2024 Jason Mott DO Attending Provider Active Start : October 25, 2024 Team Status: Active Member Role Status Dates Evaristo Anguiano MD Primary Care Provider Active Start: October 26, 2024 Jade Mott CMA Attending Provider Active Start: October 26, 2024 Team Status: Inactive Member Role Status Dates Evaristo Anguiano MD Primary Care Provider Active Start: November 11, 2024 End: November 11, 2024 Evaristo Anguiano MD Attending Provider Active St art: November 11, 2024 End: November 11, 2024 Goals (unrecognized section and content) Goals [...] nformationtoes/fingers numblabslabs3 month Follow up6 month Follow upmessagerecords.[facility] Issues- Diarrheacontinued diarrheamessage FOR RECORDS PERTAINING TO [...] BE BASED ON THE PRIMARY CLINICAL RECORDS. [employer] [facility]. provides no warranty or guarantee of the accuracy or completeness of information in this document.
--- NOTE | 2024-11-18 08:00 | CA_ITS ---
Patient Name: SHAHNAZ ADAMES MR#: [id number] : 1945 Exam Date: 11/18/2024 Ordering Doctor: DR EVARISTO ANGUIANO M.D. ECHOCARDIOGRAM REPORT PROCEDURE: CA ECHO DOPPLER COMPLETE INDICATIONS: Syncope, hypertension COMPARISON: None. DESCRIPTION: COMPLETE ECHOCARDIOGRAM Real-time transthoracic echocardiography with 2D, M-mode, spectral and color flow Doppler performed. QUALITY: Technical quality was good. LEFT VENTRICLE: Normal chamber size. Normal left ventricular wall thickness. Normal left ventricular systolic function without wall motion abnormalities. Calculated left ventricular ejection fraction is 64% LV EF: Normal left ventricular ejection fraction, (>55%). DIASTOLIC: Grade II diastolic dysfunction. ATRIAL SEPTUM: Visually appears intact. LEFT ATRIUM: Mild dilatation. RIGHT ATRIUM: Normal chamber size. RIGHT VENTRICLE: Mild dilatation. Normal right ventricular systolic function. TRICUSPID VALVE: Normal mobility and thickness. No stenosis with moderate regurgitation. Doppler studies reveal moderately (45-60) elevated right sided pressures.RVSP 45 mmHg MITRAL VALVE: Normal mobility and thickness. No evidence of mitral valve stenosis. Mild mitral annular calcification. Mild mitral regurgitation. AORTIC VALVE: Normal trileaflet appearance. No visible sclerosis. Normal leaflet mobility. No evidence of aortic valve stenosis. Trivial aortic regurgitation. AORTIC ROOT: Normal diameter and appearance. PULMONIC VALVE: Normal thickness and mobility. No stenosis. Mild regurgitation. PERICARDIUM: Trivial pericardial effusion. IVC: Normal size, Collapes with inspirations. PLEURA: CONCLUSION: Normal left ventricular systolic function without wall motion abnormalities, ejection fraction 64% Grade 2 left ventricular diastolic dysfunction Mildly dilated right ventricle with normal systolic function Mildly dilated left atrium Moderate pulmonary hypertension, RVSP 45 mmHg Moderate tricuspid regurgitation Mild mitral regurgitation Trivial aortic insufficiency Mild pulmonary insufficiency Minimal pericardial effusion Adult Echocardiography Procedure Report Left Ventricle LVEDD (3.7 - 5.6 cm): 3.23 cm LVESD (2.2 - 4.0 cm): 2.79 cm LVIVS thickness (0.6 - 1.2 cm): 0.99 cm LVPW thickness (0.5 - 1.0 cm): 0.81 cm e': 0.07 m/s E - e': 7.74 LVOT Max Gradient: 1.40 mm[Hg] LVOT Area (cm2): 0.59 m/s Peak Velocity (LVOT): 0.59 m/s Mean Velocity (LVOT): 0.42 m/s LVOT Diameter 2.41 cm Left Ventricular Ejection Fraction: 63.97 % Left Atrium LA Volume Index (2D A2C): 36.47 ml/m2 Left Atrium Systolic Dimension: 3.81 cm Mitral Valve MV E to A Ratio: 0.90 MV Max Gradient: MV Mean Gradient: Mitral Valve A-Wave Peak Velocity: 0.57 m/s Mitral Valve E-Wave Peak Velocity: 0.51 m/s Cardiovascular Orifice Area: Right Ventricle RV Internal Diastolic Dimension: Aorta AO Root Diam: 3.10 cm Ascending Ao Diam: Aortic Valve AoV Area (Peak Eldon): 3.28 cm2, 3.28 cm2 AoV Area (VTI): 3.69 cm2, 3.69 cm2 Deceleration Mcdonald: Pressure Half-Time: Peak Velocity(Antegrade Flow): 0.83 m/s Peak Gradient(Antegrade Flow): 2.73 mm[Hg] Mean Velocity(Antegrade Flow): 0.54 m/s Mean Gradient(Antegrade Flow): 1.36 mm[Hg] Velocity Time Integral: 19.13 cm Tricuspid Valve Peak Velocity (Regurgitant Flow): 3.00 m/s, 3.20 m/s, 3.25 m/s Peak Velocity: Pulmonic Valve Mean Gradient: Mean Velocity: Peak Velocity: Peak Gradient: 2.40 mm[Hg], 2.54 mm[Hg] Right Atrium Right Atrium Systolic Pressure: 52.53 ml, 52.53 ml Dictated by: Aníbal Lake MD on 11/20/2024 at 16:26 Approved by: Aníbal Lake MD on 11/20/2024 at 16:36
== END 2024-11-18 07:48 | disposition home or self-care (01) ==
LOC: CARD 07:47
PROVIDERS: PCP Family Medicine; Visit Provider Family Medicine
DX: R55 Syncope and collapse (principal); I10 Essential (primary) hypertension
CPT/HCPCS: 93306; 93880

== ENCOUNTER 2025-01-11 10:01 | Outpatient (OUT) | payer MEDICARE, OTHER, SELFPAY ==
--- OUTSIDE RECORDS SUMMARY | 2025-01-11 10:09 | XMS_ITS | CCD ---
Author Organization [facility]ini[facility] Care Team Providers Care Robotics Systems Engineer Name Role Phone MD Evaristo Anguiano Primary [...] Consulting Unavailable EVARISTO ANGUIANO Primary Care Physician [phone] DO Frederick Perez II Attending Provider [phone] MD Eugenio Beckett Referring Provider Unavailable MD Evaristo Anguiano Primary Care Provider [phone] DO Frederick Preez II Attending Provider MD Eugenio Beckett Referring Provider Unavailable MD Evaristo Anguiano Primary Care Provider [phone] Papito Tripp Attending Unavailable Papito Tripp Attending Unavailable Evaristo Anguiano MD Primary Care Provider Evaristo Anguiano MD Attending Provider Jason Mott DO Attending Provider [phone] Jade Mott CMA Attending Provider Unavaila ble Allergies Allergy Classification Reported Allergen(s) Allergy Type Date of Onset Reaction(s) Facility (20 sources) Amoxicillin; Translations: [Amoxicillin] Drug Allergy 01-29-20 Weal (disorder) [facility] (13 sources) Penicillin Drug Allergy Unknown [facility] Other (7 sources) Pseudoephedrine Drug Allergy 03-25-19 Unknown [facility] Other (9 sources) Penicillins Allergy to substance 06-13-19 [facility] (9 sources) 12 Hour Decongestant Allergy to substance 06-12-19 [facility] Comment on above: Onset Date: 03/25/19 Medications [...] Ordered Start: 06-16-2021 take 1 capsule by mouth once d aily take 1 tablet by sarah th every [...] mg / cholecalciferol 0.01 mg oral tablet (11 sources) Vitamin D Start: 10-06-2021 take 1 tablet by mouth twice daily [facility] (3 sources) Start: 05-27-2023 take 1 tablet by mouth once daily [facility] 1 tab(s), Oral, Daily, Refill(s) 0, Prophylaxis Start Date: 05/27/23 Status: Ordered Start: 05-27-2023 [facility] Oral, Daily, Refill(s) 0 Start Date: 05/27/23 Status: Ordered losartan potassium 50 mg oral tablet (20 sources) Angiotensin 2 Receptor Abilio Start: 05-26-2024 End: 11-16-2024 take 1 tablet by mouth once daily Start: 10-10-2023 take 1 tablet by sarah th once daily Losartan Active 0 .ROUTE .COMPLEX [...] # 507 gm, Refills(s) 3, Pharmacy: [facility] #[id number], 159, cm, 05/27/23 12:05:00 EST, Height/Length Dosing, 50.6, kg, 05/27/23 12:05:00 EST, Weight Dosing Start Date: 05/27/23 Status: Ordered 24 hr metoprolol succinate 25 mg extended release oral tablet (12 sources) beta-Adrenergi c Abilio Start: 11-11-2024 take 1 tablet by mouth once daily Start: 06-16-2021 End: 01-02-2024 take 1 tablet by mouth once daily Metoprolol Succinate 50 mg tablet extended release 24 hr Discontinued 50 MG PO Daily June 16, 2021 12:00am January 02, 2024 8:33am Multivitamin (Multiple Vitamin) Tablet (1 source) Start: [...] Orally Once a day Active Multivitamin Tablet (5 sources) Start: 06-16-2021 take 1 tablet by mouth once da chhaya Start: 06-16-2021 take 1 tablet by sarah [...] Active saccharomyces boulardii 250 mg oral capsule (6 sources) Start: 01-02-2024 take 1 capsule by mouth once daily Completed/Discontinued Medications Medication Drug Class(es) Dates Sig (Normalized) Sig (Original) acetaminophen 325 mg oral tablet (10 sources) Start: 10-17-2021 End: 06-18-2022 take 2 [...] 2021 12:00am June 18, 2022 10:38am Calcium (18 sources) Phosphate Binder, Calcium Start: 06-16-2021 End: [...] resin 4000 mg powder for oral suspension (7 sources) Bile Acid Sequestrant Start: 01-02-2024 End: [...] # 30 EA, Refills(s) 4, Pharmacy: [facility]/pharmacy #[id number], 159, cm, 05/27/23 12:05:00 EST, Height/Length Dosing, 50.6, kg, 05/27/23 12:05:00 EST, Weight Dosing Start Date: 05/27/23 Status: Ordered fluticasone propionate 0.05 mg/actuat metered dose nasal spray (11 sources) Corticosteroid Start: 10-06-2021 End: 06-18-2022 Fluticasone Propionate 50 mcg/actuation spray,suspension Discontinued 2 SPRAY INTRANASAL Daily as needed for Allergy Symptoms October 06, 2021 12:00am June 18, 2022 10:51am hyoscyamine sulfate 0.125 mg oral tablet (7 sources) Start: 05-26-2024 End: 09-11-2024 take 1 [...] hrs Active methylPREDNISolone 4 mg oral tablet (9 sources) Corticosteroid Start: 06-13-2023 End: 01-02-2024 Methylprednisolone [...] PO PER PKG DIR for 6 days omeprazole 20 mg delayed release oral capsule (18 sources) Proton Pump Inhibitor Start: 07-18-2023 End: [...] Start: 07-02-2022 take 1 capsule by mo [facility] once daily Omeprazole 20 MG 1 capsule 30 minutes before morning meal Orally Once a day for 30 days Jun, Active triamcinolone acetonide 1 mg/ml topical cream (3 sources) Corticosteroid Start: 09-11-2024 End: 09-15-2024 Triamcinolone Acetonide 0.1 % cream Discontinued 1 APPLIC TOPICAL Twice daily September 11, 2024 12:00am September 15, 2024 2:40pm valACYclovir 1000 mg oral tablet (3 sources) Herpesvirus Nucleoside Analog DNA Polymerase Inhibitor, [...] gangrene] Onset: 4 10-17-2021 Episodic Allergic reactions (16 sources) Contact dermatitis; Translations: [Unspecified contact dermatitis, unspecified cause] 06-13-2023 Episodic Anxiety disorders (20 sources) Anxiety; Translations: [Anxiety disorder, unspecified] Chronic Bacterial infection; unspecified site (13 sources) Bacterial infectious disease; Translations: [Other specified bacterial agents as the cause of diseases classified elsewhere] Episodic Cardiac dysrhythmias (12 sources) Irregular heart beat; Translations: [Cardiac arrhythmia, unspecified] 06-13-2023 Chronic Esophageal disorders (16 sources) Gastroesophageal reflux disease without esophagitis; Translations: [...] Onset: 3 Episodic Other non-traumatic joint disorders (7 sources) Pain in right shoulder; Translations: [Right [...] Episodic Other nutritional; endocrine; and metabolic disorders (5 sources) Weight decreased; Translations: [Abnormal weight loss] 07-03-2023 Episodic Other screening for suspected conditions (not mental disorders or infectious disease) (7 sources) Encounter for screening mammogram for malignant neoplasm of breast; Translations: [Patient encounter status] Episodic Other skin disorders (1 source) Other hypertrophic disorders of the skin Episodic Other upper respiratory infections (13 sources) Bacterial sinusitis; Translations: [Chronic sinusitis, unspecified] Chronic Peripheral and visceral atherosclerosis (13 sources) Intermittent claudication; Translations: [Peripheral vascular disease, unspecified] Chronic Residual codes; unclassified (6 sources) Family history of diabetes mellitus; Translations: [Family history of diabetes mellitus] 10-19-2024 Episodic Syncope (3 sources) Syncope; Translations: [Syncope and collapse] 11-11-2024 Episodic Viral infection (6 sources) Herpes zoster; Translations: [Zoster without complications] 09-16-2024 Episodic Results Test Name Value Interpretation Reference Range Facility Laboratory - Chemistry and C hemistry - challengeOrdered By: Jason Mott on 10-25-2024 Bilirubin Ql (U) Negative NEGATIVE [facility] Glucose (U) [Mass/Vol] Negative NEGATIVE [facility] Ketones Ql (U) TRACE mg/dL Abnormal NEGATIVE [facility] pH (U) 6.5 [pH] 5.0-9.0 [facility] Specific gravity (U) [Rel density] 1.015 1.005-1.025 [facility] Urobilinogen Qn (U) 0.2 {Ingris'U}/dL 0.2-1.0 [facility] Laboratory - Specimen inform ationOrdered By: Jason Mott on 10-25-2024 Appearance (U) CLEAR CLEAR [facility] Color (U) YELLOW YELLOW [facility] Laboratory - UrinalysisOrder ed By: Jason Mott on 10-25-2024 Hyaline casts LM Ql (Urine sed) RARE [facility] Leukocyte esterase Test strip Ql (U) TRACE Abnormal NEGATIVE [facility] Mucus Ql (Urine sed) TRACE Abnormal NONE SEEN [facility] Nitrite Ql (U) Negative NEGATIVE [facility] Protein Ql (U) TRACE mg/dL NEG/TRACE [facility] No Panel InformationOrdered By: Jason Mott on 10-25-2024 Urine Bacteria TRACE #/HPF Abnormal NONE SEEN [facility] Occult Blood Negative NEGATIVE [facility] Urine Other Casts SEEN #/LPF Abnormal NONE SEEN [facility] Urine Other Crystals None Seen #/HPF None Seen [facility] Urine RBC NONE SEEN #/HPF 0-2 [facility] Urine Squamous Epithelial Cells RARE #/LPF NONE/RARE [facility] Urine WBC 2-5 #/HPF Abnormal NONE SEEN [facility] Ambulatory Visit Summaryon 0 07-22-2024 Ambulatory Visit [...] for choosing us for your care. Normal [facility] Comprehensive Metabolic Pane sandi 06-10-2024 Albumin [Mass/Vol] 4.4 g/dL Normal 3.5-5.7 [facility] Comment on above: Performed By: #### L DH, CMP, DIFF CBC #### [facility] [address] Albumin/Globulin [Mass ratio] 1.9 {ratio} Normal [facility] Comment on above: Performed By: #### L DH, CMP, DIFF CBC #### [facility] [address] [place] [id number] [place] ALP [Catalytic activity/Vol] 84 U/L Normal 34-104 [facility] Comment on above: Performed By: #### L DH, CMP, DIFF CBC #### [facility] [address] [place] [id number] [facility] ALT [Catalytic activity/Vol] 16 U/L Normal 7-52 [facility] Comment on above: Performed By: #### L DH, CMP, DIFF CBC #### [facility] [address] [place] [address] [place] Anion gap [Moles/Vol] 9.3 mmol/L Normal 6.0-15.0 [facility] Comment on above: Performed By: #### L DH, CMP, DIFF CBC #### [address] AST [Catalytic activity/Vol] 20 U/L Normal 13-39 [facility] Comment on above: Performed By: #### L DH, CMP, DIFF CBC #### [address] Bilirubin [Mass/Vol] 0.5 mg/dL Normal 0.3-1.0 [facility] Comment on above: Performed By: #### L DH, CMP, DIFF CBC #### [address] Calcium [Mass/Vol] 10.0 mg/dL Normal 8.6-10.3 [facility] Comment on above: Performed By: #### L DH, CMP, DIFF CBC #### [address] Chloride [Moles/Vol] 98 mmol/L Normal 98-107 [facility] Comment on above: Performed By: #### L DH, CMP, DIFF CBC #### [address] CO2 [Moles/Vol] 33.1 mmol/L High 21.0-31.0 [facility] Comment on above: Performed By: #### L DH, CMP, DIFF CBC #### [address] Creatinine [Mass/Vol] 0.82 mg/dL Normal 0.60-1.20 [facility] Comment on above: Performed By: #### L DH, CMP, DIFF CBC #### [place] [address] [place] Creatinine Clr Calc Pharmacy 45.26 Normal [facility] Comment on above: Performed By: #### L DH, CMP, DIFF CBC #### [place] [address] [place] GFR/1.73 sq M.predicted MDRD (S/P/Bld) [Vol rate/Area] mL/min/{1.73_m2} Normal [facility] Comment on above: Performed By: #### L DH, CMP, DIFF CBC #### [address] Globulin (S) [Mass/Vol] 2.3 g/dL Normal [facility] Comment on above: Performed By: #### L DH, CMP, DIFF CBC #### [address] Glucose [Mass/Vol] 112 mg/dL High 70-100 [facility] Comment on above: Result Comment: [facility] Glucose Reference Range is dependent on time and content of last meal. Glucose of more than 200 mg/dL in a nonstressed, ambulatory subject supports the diagnosis of Diabetes Mellitus. ADA recommended reference range Performed By: #### L DH, CMP, DIFF CBC #### [address] Potassium [Moles/Vol] 4.4 mmol/L Normal 3.5-5.1 [facility] Comment on above: Performed By: #### L DH, CMP, DIFF CBC #### [address] Protein [Mass/Vol] 6.7 g/dL Normal 6.4-8.9 [facility] Comment on above: Performed By: #### L DH, CMP, DIFF CBC #### [place] [address] [place] Sodium [Moles/Vol] 136 mmol/L Normal 136-145 [facility] Comment on above: Performed By: #### L DH, CMP, DIFF CBC #### [address] Urea nitrogen [Mass/Vol] 14 mg/dL Normal 7-25 [facility] Comment on above: Performed By: #### L DH, CMP, DIFF CBC #### [place] [address] [place] Diff and CBCon 06-10-2024 Anisocytosis Ql (Bld) Moderate Normal [facility] Comment on above: Performed By: #### L DH, CMP, DIFF CBC #### [place] [address] [place] Basophils/100 WBC (Bld) 1 % Normal 0-2 [facility] Comment on above: Performed By: #### L DH, CMP, DIFF CBC #### [address] Erythrocyte distribution width (RBC) [Ratio] 13.3 % Normal 11.9-15.3 [facility] Comment on above: Performed By: #### L DH, CMP, DIFF CBC #### [address] Giant Platelet Tally 1 /100{WBC} Normal [facility] Comment on above: Performed By: #### L DH, CMP, DIFF CBC #### [address] Hematocrit (Bld) [Volume fraction] 45.4 % Normal 34.0-46.4 [facility] Comment on above: Performed By: #### L DH, CMP, DIFF CBC #### [address] Hemoglobin (Bld) [Mass/Vol] 15.3 g/dL Normal 11.8-15.4 [facility] Comment on above: Performed By: #### L DH, CMP, DIFF CBC #### [address] Large Platelets Slight Normal [facility] Comment on above: Result Comment: PERF ORMED BY: [place] [address] PATHOLOGIST GLASS ROLLING MACHINE OPERATOR CRISTHIAN BHATIA M.D. Performed By: #### L DH, CMP, DIFF CBC #### [address] Lymphocytes/100 WBC (Bld) 64 % High 18-42 [facility] Comment on above: Performed By: #### L DH, CMP, DIFF CBC #### [address] MCH (RBC) [Entitic mass] 30.1 pg Normal 24.7-34.3 [facility] Comment on above: Performed By: #### L DH, CMP, DIFF CBC #### [address] MCV (RBC) [Entitic vol] 89.7 fL Normal 80-100 [facility] Phys[facility] Comment on above: Performed By: #### L DH, CMP, DIFF CBC #### [address] Mean Corpuscular HGB Conc 33.6 g/dL Normal 32.0-35.0 [facility] Comment on above: Performed By: #### L DH, CMP, DIFF CBC #### [address] Microcytosis Moderate Normal [facility] Comment on above: Performed By: #### L DH, CMP, DIFF CBC #### [address] Monocytes/100 WBC (Bld) 1 % Low 2-11 [facility] Comment on above: Performed By: #### L DH, CMP, DIFF CBC #### [address] Ovalocytes Slight Normal [facility] Comment on above: Performed By: #### L DH, CMP, DIFF CBC #### [address] Platelet Estimate Normal Normal Normal [facility] Comment on above: Performed By: #### L DH, CMP, DIFF CBC #### [address] Platelet mean volume (Bld) [Entitic vol] 9.9 fL Normal 6.3-10.7 [facility] Comment on above: Performed By: #### L DH, CMP, DIFF CBC #### [address] Platelet Morphology Normal Normal Normal [facility] Comment on above: Performed By: #### L DH, CMP, DIFF CBC #### [address] Platelets (Bld) [#/Vol] 264 10*3/uL Normal 150-450 [facility] Comment on above: Performed By: #### L DH, CMP, DIFF CBC #### [address] Poikilocytosis Slight Normal [facility] Comment on above: Performed By: #### L DH, CMP, DIFF CBC #### [address] RBC (Bld) [#/Vol] 5.06 10*6/uL High 3.60-5.00 [facility] Comment on above: Performed By: #### L DH, CMP, DIFF CBC #### [address] Reactive Lymphocytes 2 % Normal 0-12 [facility] Comment on above: Performed By: #### L DH, CMP, DIFF CBC #### [address] Segmented neutrophils/100 WBC (Bld) 32 % Low 50-70 [facility] Comment on above: Performed By: #### L DH, CMP, DIFF CBC #### [address] WBC (Bld) [#/Vol] 19.0 10*3/uL High 3.8-11.6 [facility] Comment on above: Performed By: #### L DH, CMP, DIFF CBC #### [address] LDH Lactate Dehydrogenaseon 06-10-2024 LDH Lactate Dehydrogenase 159 U/L Normal 140-271 [facility] Comment on above: Result Comment: PERF ORMED BY: [place] [address] PATHOLOGIST GLASS ROLLING MACHINE OPERATOR CRISTHIAN BHATIA M.D. Performed By: #### L DH, CMP, DIFF CBC #### [address] [place] [address] [facility] Gastroenterology Office/Clin ic Noteon 06-01-2024 Gastroenterology Office/Clinic [...] 30 EA, Refills(s) 4, [id number] 159, cm, 05/27/23 12:05:00 EST, Height/Length Dosing, 50.6, kg, 05/27/23 12:05:00 EST, Weight Dosing methylcellulose, 2 gm, Oral, BID, # 507 gm, Refills(s) 3, [id number], 159, cm, 05/27/23 12:05:00 EST, Height/Length Dosing, 50.6, kg, 05/27/23 12:05:00 EST, Weight Dosing Continue omeprazole 40 mg daily Patient stopped Questran. Continue to monitor Patient not interested in repeating colonoscopy Continue probiotics from [id number] (align) Follow-up as needed Follow-up No qualifying [...] virus vaccine, inactivated 12/25/2022 Recorded SARS-CoV-2 (COVID-19) [id number] 02/13/2022 Recorded influenza virus vaccine, inactivated 12/13/2021 [...] 01/21/2017 Recorded Normal [facility] Comment on above: Result Comment: [...] # 30 EA, Refills(s) 4, Pharmacy: [facility]/pharmacy #[id number], 159, cm, 05/27/23 12:05:00 EST, Height/Length Dosing, 50.6, kg, 05/27/23 12:05:00 EST, Weight Dosing methylcellulose, 2 gm, Oral, BID, # 507 gm, Refills(s) 3, Pharmacy: [facility]/pharmacy #[id number], 159, cm, 05/27/23 12:05:00 [...] virus vaccine, inactivated 12/25/2022 Recorded SARS-CoV-2 (COVID-19) [id number] 02/13/2022 Recorded influenza virus vaccine, inactivated 12/13/2021 [...] 01/21/2017 Recorded Normal [facility] Comment on above: Result Comment: Elec tronically Signed By: Qasim PORTER, Papito Jo\.br\Date and Time Signed: 08/14/23 13:41 EDT Giardia lamblia Ag [Presence ] in Stool by Immunoassayon 06-28-2023 G. lamblia Ag IA Ql (Stl) Negative Negative [facility] Comment on above: Performed at: [address] [id number] Director: Quique Yee PhD, Phone: [phone] No Panel Informationon 06-27 Clostridium difficile (PCR)(LAB) Negative NEGATIVE [facility] Rotavirus Antigen (LAB) Negative Negative [facility] Comment on above: Performed at: [facility] [address] [id number] Director: Quique Yee PhD, Phone: [phone] Alanine aminotransferase [En zymatic activity/volume] in Serum or PlasmaOrdered By: Nida Crain on 06-12-2023 ALT [Catalytic activity/Vol] 14 U/L 7-52 [facility] Albumin [Mass/volume] in Ser um or Plasma by Bromocresol green (BCG) dye binding methoOrdered By: Nida Crain on 06-12-2023 Albumin BCG dye [Mass/Vol] 4.3 g/dL 3.5-5.7 [facility] Alkaline phosphatase [Enzyma tic activity/volume] in Serum or PlasmaOrdered By: Nida Crain on 06-12-2023 ALP [Catalytic activity/Vol] 71 U/L 34-104 [facility] Anisocytosis LM Ql (Bld)Orde red By: Nida Crain on 06-12-2023 Anisocytosis Ql (Bld) Slight [facility] Aspartate aminotransferase [ Enzymatic activity/volume] in Serum or PlasmaOrdered By: Nida Crain on 06-12-2023 AST [Catalytic activity/Vol] 20 U/L 13-39 [facility] Basophils Auto (Bld) [#/Vol] Ordered By: Nida Crain on 06-12-2023 Basophils (Bld) [#/Vol] N/A [facility] Basophils/100 WBC Auto (Bld) Ordered By: Nida Crain on 06-12-2023 Basophils/100 WBC (Bld) N/A [facility] Bilirubin.total [Mass/volume ] in Serum or PlasmaOrdered By: Nida Crain on 06-12-2023 Bilirubin [Mass/Vol] 0.4 mg/dL 0.3-1.0 [facility] Calcium [Mass/volume] in Ser um or PlasmaOrdered By: Nida Crain on 06-12-2023 Calcium [Mass/Vol] 9.5 mg/dL 8.6-10.3 [facility] Carbon dioxide, total [Moles /volume] in Serum or PlasmaOrdered By: Nida Crain on 06-12-2023 CO2 [Moles/Vol] 28.3 mmol/L 21.0-31.0 [facility] Chloride [Moles/volume] in S filemon or PlasmaOrdered By: Nida Crain on 06-12-2023 Chloride [Moles/Vol] 101 mmol/L 98-107 [facility] Creatinine [Mass/volume] in Serum or PlasmaOrdered By: Nida Crain on 06-12-2023 Creatinine [Mass/Vol] 0.87 mg/dL 0.60-1.20 [facility] Eosinophils Auto (Bld) [#/Vo l]Ordered By: Nida Crain on 06-12-2023 Eosinophils (Bld) [#/Vol] N/A [facility] Eosinophils/100 WBC Auto (Bl d)Ordered By: Nida Crain on 06-12-2023 Eosinophils/100 WBC (Bld) N/A [facility] Eosinophils/100 WBC Manual c nt (Bld)Ordered By: Nida Crain on 06-12-2023 Eosinophils/100 WBC (Bld) 1 % 1-3 [facility] Erythrocyte distribution wid th Auto (RBC) [Ratio]Ordered By: Nida Crain on 06-12-2023 Erythrocyte distribution width (RBC) [Ratio] 13.2 % 11.9-15.3 [facility] Giant platelets/100 leukocyt es [Ratio] in Blood by Manual countOrdered By: Nida Crain on 06-12-2023 Giant platelets/100 WBC Manual cnt (Bld) [Ratio] 1 /100{WBC} [facility] Globulin Calc (S) [Mass/Vol] Ordered By: Nida Crain on 06-12-2023 Globulin (S) [Mass/Vol] 1.9 g/dL [facility] Glucose [Mass/volume] in Ser um or PlasmaOrdered By: Nida Crain on 06-12-2023 Glucose [Mass/Vol] 122 mg/dL 70-100 [facility] Comment on above: ADA recommended refe rence rangeRandom Glucose Reference Range is dependent on time and content of last meal. Glucose of more than 200 mg/dL in a nonstressed, ambulatory subject supports the diagnosis of Diabetes Mellitus. Hematocrit Auto (Bld) [Volum e fraction]Ordered By: Nida Crain on 06-12-2023 Hematocrit (Bld) [Volume fraction] 43.6 % 34.0-46.4 [facility] Hemoglobin [Mass/volume] in BloodOrdered By: Nida Crain on 06-12-2023 Hemoglobin (Bld) [Mass/Vol] 14.2 g/dL 11.8-15.4 [facility] Lactate dehydrogenase [Enzym atic activity/volume] in Serum or Plasma by Lactate to pyOrdered By: Nida Crain on 06-12-2023 LDH Lactate to pyruvate reaction [Catalytic activity/Vol] 144 U/L 140-271 [facility] Leukocytes [#/volume] correc jose for nucleated erythrocytes in Blood by Automated counOrdered By: Nida Crain on 06-12-2023 WBC corrected for nucl RBC Auto (Bld) [#/Vol] 16.8 10*3/uL 3.8-11.6 [facility] Lymphocytes Auto (Bld) [#/Vo l]Ordered By: Nida Crain on 06-12-2023 Lymphocytes (Bld) [#/Vol] N/A [facility] Lymphocytes/100 WBC Auto (Bl d)Ordered By: Nida Crain on 06-12-2023 Lymphocytes/100 WBC (Bld) N/A [facility] Lymphocytes/100 WBC Manual c nt (Bld)Ordered By: Nida Crain on 06-12-2023 Lymphocytes/100 WBC (Bld) 78 % 18-42 [facility] MCH Auto (RBC) [Entitic mass ]Ordered By: Nida Crain on 06-12-2023 MCH (RBC) [Entitic mass] 29.7 pg 24.7-34.3 [facility] MCHC Auto (RBC) [Mass/Vol]Or dered By: Nida Crain on 06-12-2023 MCHC (RBC) [Mass/Vol] 32.6 g/dL 32.0-35.0 [facility] MCV Auto (RBC) [Entitic vol] Ordered By: Nida Crain on 06-12-2023 MCV (RBC) [Entitic vol] 91.0 fL 80-100 [facility] Microcytes LM Ql (Bld)Ordere d By: Nida Crain on 06-12-2023 Microcytes Ql (Bld) Slight [facility] Monocytes Auto (Bld) [#/Vol] Ordered By: Nida Crain on 06-12-2023 Monocytes (Bld) [#/Vol] N/A [facility] Monocytes/100 WBC Auto (Bld) Ordered By: Nida Crain on 06-12-2023 Monocytes/100 WBC (Bld) N/A [facility] Monocytes/100 WBC Manual cnt (Bld)Ordered By: Nida Crain on 06-12-2023 Monocytes/100 WBC (Bld) 1 % 2-11 F [facility] Neutrophils Auto (Bld) [#/Vo l]Ordered By: Nida Crain on 06-12-2023 Neutrophils (Bld) [#/Vol] N/A [facility] Neutrophils/100 WBC Auto (Bl d)Ordered By: Nida Crain on 06-12-2023 Neutrophils/100 WBC (Bld) N/A [facility] No Panel InformationOrdered By: Nida Crain on 06-12-2023 Estimated GFR (CKD-EPI) > 60.0 mL/Min [facility] Creatinine Clearance (Chem 43.51 [facility] Nucleated erythrocytes [Pres ence] in Blood by Automated countOrdered By: Nida Crain on 06-12-2023 Nucleated RBC Auto Ql (Bld) N/A [facility] Platelet adequacy [Presence] in Blood by Light microscopyOrdered By: Nida Crain on 06-12-2023 Platelets LM Ql (Bld) Normal Normal [facility] Platelet mean volume Auto (B ld) [Entitic vol]Ordered By: Nida Crain on 06-12-2023 Platelet mean volume (Bld) [Entitic vol] 9.5 fL 6.3-10.7 [facility] Platelet morphology finding [Identifier] in BloodOrdered By: Nida Crain on 06-12-2023 Platelet morphology finding Nom (Bld) Normal Normal [facility] Platelets Auto (Bld) [#/Vol] Ordered By: Nida Crain on 06-12-2023 Platelets (Bld) [#/Vol] 270 10*3/uL 150-450 [facility] Potassium [Moles/volume] in Serum or PlasmaOrdered By: Nida Crain on 06-12-2023 Potassium [Moles/Vol] 4.4 mmol/L 3.5-5.1 [facility] Protein [Mass/volume] in Ser um or PlasmaOrdered By: Nida Crain on 06-12-2023 Protein [Mass/Vol] 6.2 g/dL 6.4-8.9 [facility] RBC Auto (Bld) [#/Vol]Ordere d By: Nida Crain on 06-12-2023 RBC (Bld) [#/Vol] 4.79 10*6/uL 3.60-5.00 [facility] RBC morphologyOrdered By: Blanca Crain on 06-12-2023 RBC morphology finding Nom (Bld) Normal Normal [facility] Segmented neutrophils/100 WB C Manual cnt (Bld)Ordered By: Nida Crain on 06-12-2023 Segmented neutrophils/100 WBC (Bld) 19 % 50-70 [facility] Serum or plasma albumin/glob ulin mass ratioOrdered By: Nida Crain on 06-12-2023 Albumin/Globulin [Mass ratio] 2.3 {ratio} [facility] Serum or plasma anion gap de terminationOrdered By: Nida Crain on 06-12-2023 Anion gap [Moles/Vol] 14.1 mmol/L 6.0-15.0 [facility] Sodium [Moles/volume] in Ser um or PlasmaOrdered By: Nida Crain on 06-12-2023 Sodium [Moles/Vol] 139 mmol/L 136-145 [facility] Urea nitrogen [Mass/volume] in Serum or PlasmaOrdered By: Nida Crain on 06-12-2023 Urea nitrogen [Mass/Vol] 20 mg/dL 7-25 [facility] Variant lymphocytes/100 WBC Manual cnt (Bld)Ordered By: Nida Crain on 06-12-2023 Variant lymphocytes/100 WBC (Bld) 1 % 0-12 [facility] WBC Auto (Bld) [#/Vol]Ordere d By: Nida Crain on 06-12-2023 WBC (Bld) [#/Vol] 16.8 10*3/uL 3.8-11.6 [facility] IMMUNOFIXATION ELEC, PROTEIN ELECon 07-09-2022 Albumin [Mass/Vol] 3.7 g/dL Normal 2.9-4.4 [facility] Comment on above: Performed By: #### V ITB12 #### [facility] [address] [place] [address] Dr. Mary Herzog Albumin/Globulin [Mass ratio] 1.5 {ratio} Normal 0.7-1.7 [facility] Comment on above: Performed By: #### V ITB12 #### [facility] [address] [place] [address] Dr. Mary Herzog Jmeav-4-Jiwpufoy 0.3 g/dL Normal 0.0-0.4 [facility] Comment on above: Performed By: #### V ITB12 #### [facility] [address] [address] [address] Mary Herzog Fqfbj-1-Itnayate 0.8 g/dL Normal 0.4-1.0 [facility] Comment on above: Performed By: #### V ITB12 #### [facility] [address] [place] [address] Dr. Mary Herzog Beta Globulin 0.9 g/dL Normal 0.7-1.3 [facility] Comment on above: Performed By: #### V ITB12 #### [facility] [address] [place] [address] Dr. Mary Herzog Gamma Globulin 0.6 g/dL Normal 0.4-1.8 [facility] Comment on above: Performed By: #### V ITB12 #### [facility] [address] [place] [address] Dr. Mary Herzog Globulin (S) [Mass/Vol] 2.6 g/dL Normal 2.2-3.9 [facility] Comment on above: Performed By: #### V ITB12 #### [facility] [address] [place] [address] Dr. Mary Herzog Immunofixation Result, Serum Comment Normal [facility] Comment on above: Result Comment: No m onoclonality detected. Performed By: #### V ITB12 #### [facility] [address] [place] [address] Dr. Mary Herzog Immunoglobulin A, Qn, Serum 102 mg/dL Normal 64-422 [facility] Comment on above: Performed By: #### V ITB12 #### [facility] [address] [place] [address] Dr. Mary Herzog Immunoglobulin G, Qn, Serum 635 mg/dL Normal 586-1602 [facility] Comment on above: Performed By: #### V ITB12 #### [facility] [address] [place] [address] Dr. Mary Herzog Immunoglobulin M, Qn, Serum 125 mg/dL Normal 26-217 [facility] Comment on above: Performed By: #### V ITB12 #### [facility] [address] [place] [address] Dr. Mary Herzog M-Nilesh Not Observed Normal Not Observed [facility] Comment on above: Performed By: #### V ITB12 #### [facility] [address] [place] [address] Dr. Mary Herzog PDF . Normal [facility] Comment on above: Performed By: #### V ITB12 #### [facility] [address] [address] [address] Mary Herzog Please note: Comment Normal [facility] Comment on above: Result Comment: Prot ein electrophoresis scan will follow via computer, mail, or food service director delivery. Performed By: #### V ITB12 #### [facility] [address] [address] [address] Mary Herzog Protein [Mass/Vol] 6.3 g/dL Normal 6.0-8.5 [facility] Comment on above: Performed By: #### V ITB12 #### [facility] [address] [place] [address] Dr. Mary Herzog VITAMIN B6on 07-09-2022 Vitamin B6 29.2 ug/L Normal 3.4-65.2 [facility] Comment on above: Result Comment: Defi ciency: <3.4 Marginal: 3.4 - 5.1 Adequate: >5.1 Performed By: #### V ITAB6 #### [facility] [address] [place] [address] Dr. Mary Herzog COPPER, SERUM or PLASMAon Copper, Serum 136 ug/dL Normal 80-158 [facility] Comment on above: Result Comment: Dete ction Limit = 5 Performed By: #### V ITB12 #### [facility] [address] [place] [address] Dr. Mary Herzog MO COMPREHENSIVE PROFILEon 07-07-2022 Anti-Centromere B Antibodies <0.2 Normal 0.0-0.9 [facility] Comment on above: Performed By: #### V ITB12 #### [facility] [address] [place] [address] Dr. Mary Herzog Anti-DNA (DS) Ab Qn 1 IU/mL Normal 0-9 [facility] Comment on above: Result Comment: Nega tive <5 Equivocal 5 - 9 Positive >9 Performed By: #### V ITB12 #### [facility] [address] [place] [address] Dr. Mary Herzog Anti-Mary-1 <0.2 Normal 0.0-0.9 [facility] Comment on above: Performed By: #### V ITB12 #### [facility] [address] [place] [address] Dr. Mary Herzog Antichromatin Antibodies <0.2 Normal 0.0-0.9 [facility] Comment on above: Performed By: #### V ITB12 #### [facility] [address] [place] [address] Dr. Mary Herzog ANTIRIBOSOMAL P AB <0.2 Normal 0.0-0.9 [facility] Comment on above: Performed By: #### V ITB12 #### [facility] [address] [place] [address] Dr. Mary Herzog Antiscleroderma-70 Antibodies <0.2 Normal 0.0-0.9 [facility] Comment on above: Performed By: #### V ITB12 #### [facility] [address] [place] [address] Dr. Mary Herzog COMMENT Comment Normal [facility] Comment on above: Result Comment: Auto antibody Disease Association Condition Frequency Antinuclear Antibody, SLE, mixed connective Direct (MO-D) tissue diseases dsDNA SLE 40 - 60% Chromatin Drug induced SLE 90% SLE 48 - 97% SSA (Ro) SLE 25 - 35% Sjogren's Syndrome 40 - 70% Lupus 100% SSB (La) SLE 10% Sjogren's Syndrome 30% Sm (anti-Carlson) SLE 15 - 30% PHYSICS TECHNICIAN Mixed Connective Tissue Disease 95% (U1 nRNP, SLE 30 - 50% anti-ribonucleoprotein) Polymyositis and/or Dermatomyositis 20% Scl-70 (antiDNA Scleroderma (diffuse) 20 - 35% topoisomerase) Crest 13% Mary-1 Polymyositis and/or Dermatomyositis 20 - 40% Centromere B Scleroderma - Crest variant 80% Ribosomal P SLE 10 - 20% Performed By: #### V ITB12 #### [facility] [address] [place] [address] Dr. Mary Herzog PHYSICS TECHNICIAN Antibodies 0.2 AI Normal 0.0-0.9 [facility] Comment on above: Performed By: #### V ITB12 #### [facility] [address] [place] [address] Dr. Mary Herzog Sjogren's Anti-SS-A <0.2 Normal 0.0-0.9 [facility] Comment on above: Performed By: #### V ITB12 #### [facility] [address] [place] [address] Dr. Mary Buitragoogrmodesta's Anti-SS-B <0.2 Normal 0.0-0.9 [facility] Comment on above: Performed By: #### V ITB12 #### [facility] [address] [place] [address] Dr. Mary Herzog Carlson Antibodies <0.2 Normal 0.0-0.9 [facility] Comment on above: Performed By: #### V ITB12 #### [facility] [address] [place] [address] Dr. Mary Herzog Carlson/PHYSICS TECHNICIAN Antibodies <0.2 Normal 0.0-0.9 [facility] Comment on above: Performed By: #### V ITB12 #### [facility] [address] [place] [address] Dr. Mary Herzog CBC W MANUAL DIFFon 07-07-19 23 ATYPICAL LYMPH # Normal [facility] Comment on above: Performed By: #### C BCMAN #### [facility] [address] [place] [address] Dr. Mary Herzog ATYPICAL LYMPH % Normal [facility] Comment on above: Performed By: #### C BCMAN #### [facility] [address] [place] [address] Dr. Mary Herzog BAND # Normal 0.0-0.3 [facility] Comment on above: Performed By: #### C BCMAN #### [facility] [address] [place] [address] Dr. Mary Herzog BAND % Normal 0-5 [facility] Comment on above: Performed By: #### C BCMAN #### [facility] [address] [place] [address] Dr. Mary Herzog BASOM # 0.00 103/ul Normal 0.00-0.10 [facility] Comment on above: Performed By: #### C BCMAN #### [facility] [address] [place] [address] Dr. Mary Herzog BASOM % 0.0 % Critically low 0.2-2.0 [facility] Comment on above: Performed By: #### C BCCORY #### [facility] [address] [place] [address] Dr. Mary Herzog BLAST # Normal [facility] Comment on above: Performed By: #### C BCMAN #### [facility] [address] [place] [address] Dr. Mary Herzog BLAST % Normal [facility] Comment on above: Performed By: #### C BCMAN #### [facility] [address] [place] [address] Dr. Mary Herzog CORRECTED WBC Normal 4.0-11.0 [facility] Comment on above: Performed By: #### C BCMAN #### [facility] [address] [place] [address] Dr. Mary Herzog EOS # 0.49 103/ul Normal 0.00-0.70 [facility] Comment on above: Performed By: #### C BCMAN #### [facility] [address] [place] [address] Dr. Mary Herzog EOS% 3.0 % Normal 0.9-7.0 [facility] Comment on above: Performed By: #### C BCCORY #### [facility] [address] [address] [address] Mary Herzog HCT 45.1 % Normal 36.0-48.0 [facility] Comment on above: Performed By: #### C BCCORY #### [facility] [address] [address] [address] Mary Herzog HGB 14.5 g/dl Normal 12.0-16.0 [facility] Comment on above: Performed By: #### C BRODY #### [facility] [address] [address] [address] Mary Herzog LYMPHM # 10.89 103/ul Critically high 1.20-3.80 [facility] Comment on above: Performed By: #### C BRODY #### [facility] [address] [place] [address] Dr. Mary Herzog LYMPHM% 66.0 % Critically high 20.5-60.0 [facility] Comment on above: Performed By: #### C BRODY #### [facility] [address] [address] [address] Mary Herzog MCH 29.1 pg Normal 26.7-34.0 [facility] Comment on above: Performed By: #### C BRODY #### [facility] [address] [place] [address] Dr. Mary Herzog MCHC 32.2 g/dl Normal 29.9-35.2 [facility] Comment on above: Performed By: #### C BCCORY #### [facility] [address] [place] [address] Dr. Mary Herzog MCV 90.4 fL Normal 81.0-99.0 [facility] Comment on above: Performed By: #### C BCCORY #### [facility] [address] [place] [address] Dr. Mary Herzog METAMYELOCYTE # Normal [facility] Comment on above: Performed By: #### C BRODY #### [facility] [address] [place] [address] Dr. Mary Herzog METAMYELOCYTE % Normal [facility] Comment on above: Performed By: #### C BRODY #### [facility] [address] [place] [address] Dr. Mary Herzog MONOM# 0.82 103/ul Critically high 0.30-0.80 [facility] Comment on above: Performed By: #### C BRODY #### [facility] [address] [place] [address] Dr. Mary Herzog MONOM% 5.0 % Normal 1.7-12.0 [facility] Comment on above: Performed By: #### C BRODY #### [facility] [address] [place] [address] Dr. Mary Herzgo MPV 10.6 fL Normal 9.5-13.5 [facility] Comment on above: Performed By: #### C BRODY #### [facility] [address] [place] [address] Dr. aMry Herzog MYELOCYTE # Normal [facility] Comment on above: Performed By: #### C BRODY #### [facility] [address] [place] [address] Dr. Mary Herzog MYELOCYTE % Normal [facility] Comment on above: Performed By: #### C BRODY #### [facility] [address] [place] [address] Dr. Mary Herzog NRBC Normal [facility] Comment on above: Performed By: #### C BRODY #### [facility] [address] [place] [address] Dr. Mary Herzog PLT 277 103/ul Normal 150-450 [facility] Comment on above: Performed By: #### C BRODY #### [facility] [address] [place] [address] Dr. Mary Herzog RBC 4.99 106/ul Normal 4.20-5.40 [facility] Comment on above: Performed By: #### C BRODY #### [facility] [address] [place] [address] Dr. Mary Herzog RDW 12.9 % Normal 11.0-15.0 [facility] Comment on above: Performed By: #### C BCMAN #### [facility] [address] [place] [address] Dr. Mary Herzog SEG # 4.29 103/ul Normal 1.40-6.50 [facility] Comment on above: Performed By: #### C BCMAN #### [facility] [address] [address] [address] Mary Herzog SEG % 26.0 % Critically low 43.0-75.0 [facility] Comment on above: Performed By: #### C BCMAN #### [facility] [address] [place] [address] Dr. Mary Herzog WBC 16.5 103/ul Critically high 4.0-11.0 [facility] Comment on above: Performed By: #### C MARCELINOMAN #### [facility] [address] [place] [address] Dr. Mary Herzog GLYCOHEMOGLOBIN A1Con 2022 ADA RECOMMENDATION SEE BELOW Normal [facility] Comment on above: Result Comment: ADA RECOMMENDED LIMIT 4.0 - 6.0 ADA THERAPEUTIC TARGET < 7.0 ACTION SUGGESTED > 7.0 Performed By: #### D ATA1C #### [facility] [address] [place] [address] Dr. Mary Herzog Glucose [Mass/Vol] 117 mg/dL Normal [facility] Comment on above: Performed By: #### D ATA1C #### [facility] [address] [address] [address] Mary Herzog HbA1c (Bld) [Mass fraction] 5.7 % Normal 4.5-6.2 [facility] Comment on above: Performed By: #### D ATA1C #### [facility] [address] [place] [address] Dr. Mary Herzog PROF 14(COMP METB)on 023 Albumin [Mass/Vol] 3.7 g/dL Normal 3.4-5.0 [facility] Comment on above: Performed By: #### C MP, TSH #### [facility] [address] [address] [address] Mary Herzog Albumin/Globulin [Mass ratio] 1.1 {ratio} Normal [facility] Comment on above: Performed By: #### C MP, TSH #### [facility] [address] [address] [address] Mary Herzog ALP [Catalytic activity/Vol] 80 U/L Normal 46-116 [facility] Comment on above: Performed By: #### C MP, TSH #### [facility] [address] [place] [address] Dr. Mary Herzog ALT [Catalytic activity/Vol] 24 U/L Normal 14-59 [facility] Comment on above: Performed By: #### C MP, TSH #### [facility] [address] [place] [address] Dr. Mary Herzog Anion gap [Moles/Vol] 12.6 mmol/L Normal [facility] Comment on above: Performed By: #### C MP, TSH #### [facility] [address] [place] [address] Dr. Mary Herzog AST [Catalytic activity/Vol] 21 U/L Normal 15-37 [facility] Comment on above: Performed By: #### C MP, TSH #### [facility] [address] [place] [address] Dr. Mary Herzog Bilirubin [Mass/Vol] 0.5 mg/dL Normal 0.2-1.0 [facility] Comment on above: Performed By: #### C MP, TSH #### [facility] [address] [place] [address] Dr. Mary Herzog Calcium [Mass/Vol] 9.4 mg/dL Normal 8.5-10.1 [facility] Comment on above: Performed By: #### C MP, TSH #### [facility] [address] [place] [address] Dr. Mary Herzog Chloride [Moles/Vol] 104 mmol/L Normal 98-107 [facility] Comment on above: Performed By: #### C MP, TSH #### [facility] [address] [address] [address] Mary Herzog CO2 [Moles/Vol] 29.5 mmol/L Normal 21.0-32.0 [facility] Comment on above: Performed By: #### C MP, TSH #### [facility] [address] [address] [address] Mary Herzog Creatinine [Mass/Vol] 1.03 mg/dL Critically high 0.55-1.02 [facility] Comment on above: Performed By: #### C MP, TSH #### [facility] [address] [address] [address] Mary Herzog EGFR-AF NIGERIAN >60 Normal >=60 [facility] Comment on above: Performed By: #### C MP, TSH #### [facility] [address] [address] [address] Mary Herzog EGFR-NON AF NIGERIAN 52 mL/min/1.73m2 Critically low >=60 [facility] Comment on above: Performed By: #### C MP, TSH #### [facility] [address] [address] [address] Mary Herzog Globulin (S) [Mass/Vol] 3.4 g/dL Normal [facility] Comment on above: Performed By: #### C MP, TSH #### [facility] [address] [address] [address] Mary Herzog Glucose [Mass/Vol] 104 mg/dL Normal 74-106 [facility] Comment on above: Performed By: #### C MP, TSH #### [facility] [address] [address] [address] Mary Herzog Potassium [Moles/Vol] 4.1 mmol/L Normal 3.5-5.1 [facility] Comment on above: Performed By: #### C MP, TSH #### [facility] [address] [address] [address] Mary Herzog Protein [Mass/Vol] 7.1 g/dL Normal 6.4-8.2 [facility] Comment on above: Performed By: #### C MP, TSH #### [facility] [address] [address] [address] Mary Herzog Sodium [Moles/Vol] 142 mmol/L Normal 136-145 [facility] Comment on above: Performed By: #### C MP, TSH #### [facility] [address] [place] [address] Dr. Mary Herzog Urea nitrogen [Mass/Vol] 19.0 mg/dL Critically high 7.0-18 .0 [facility] Comment on above: Performed By: #### C MP, TSH #### [facility] [address] [place] [address] Dr. Mary Herzog Urea nitrogen/Creatinine [Mass ratio] 18.4 mg/mg Normal [facility] Comment on above: Performed By: #### C MP, TSH #### [facility] [address] [place] [address] Dr. Mary Herzog TSHon 07-06-2022 TSH 1.684 uIU/mL Normal 0.358-3.740 [facility] Comment on above: Performed By: #### C MP, TSH #### [facility] [address] [place] [address] Dr. Mary Herzog VITAMIN B12on 07-06-2022 Cobalamin (Vitamin B12) [Mass/Vol] 1021.0 pg/mL Critically high 193.0-986.0 [facility] Comment on above: Performed By: #### V ITB12 #### [facility] [address] [place] [address] Dr. Mary Herzog Smudge cell detectionOrdered By: Frederick Perez on 06-13-2022 Smudge cells LM Ql (Bld) [facility] CBC AUTO DIFFon 05-11-2022 BASO # 0.1 103/ul Normal 0.0-0.1 [facility] Comment on above: Performed By: #### C BC #### [facility] [address] [place] [address] Dr. Mary Herzog Basophils/100 WBC (Bld) 0.6 % Normal 0.2-2.0 [facility] Comment on above: Performed By: #### C BC #### [facility] [address] [place] [address] Dr. Mary Herzog EO # 0.3 103/ul Normal 0.0-0.7 [facility] Comment on above: Performed By: #### C BC #### [facility] [address] [place] [address] Dr. Mary Herzog Eosinophils/100 WBC (Bld) 1.9 % Normal 0.9-7.0 [facility] Comment on above: Performed By: #### C BC #### [facility] [address] [place] [address] Dr. Mary Herzog Erythrocyte distribution width (RBC) [Ratio] 13.1 % Normal 11.0-15.0 [facility] Comment on above: Performed By: #### C BC #### [facility] [address] [place] [address] Dr. Mary Herzog Hematocrit (Bld) [Volume fraction] 46.7 % Normal 36.0-48.0 [facility] Comment on above: Performed By: #### C BC #### [facility] [address] [place] [address] Dr. Mary Herzog Hemoglobin (Bld) [Mass/Vol] 15.1 g/dL Normal 12.0-16.0 [facility] Comment on above: Performed By: #### C BC #### [facility] [address] [place] [address] Dr. Mary Herzog IG # 0.05 10e3/ul Critically high 0.00-0.03 [facility] Comment on above: Performed By: #### C BC #### [facility] [address] [place] [address] Dr. Mary Herzog IG % 0.3 % Normal 0.0-0.5 [facility] Comment on above: Performed By: #### C BC #### [facility] [address] [place] [address] Dr. Mary Herzog LYMPH # 10.4 103/ul Critically high 1.2-3.8 [facility] Comment on above: Performed By: #### C BC #### [facility] [address] [address] [address] Mary Herzog Lymphocytes/100 WBC (Bld) 56.5 % Normal 20.5-60.0 [facility] Comment on above: Performed By: #### C BC #### [facility] [address] [address] [address] Mary Herzog MANUAL DIFF REQ NO Normal [facility] Comment on above: Performed By: #### C BC #### [facility] [address] [place] [address] Dr. Mary Herzog MCH (RBC) [Entitic mass] 29.5 pg Normal 26.7-34.0 [facility] Comment on above: Performed By: #### C BC #### [facility] [address] [place] [address] Dr. Mary Herzog MCHC (RBC) [Mass/Vol] 32.3 g/dL Normal 29.9-35.2 [facility] Comment on above: Performed By: #### C BC #### [facility] [address] [place] [address] Dr. Mary Herzog MCV (RBC) [Entitic vol] 91.2 fL Normal 81.0-99.0 [facility] Comment on above: Performed By: #### C BC #### [facility] [address] [place] [address] Dr. Mary Herzog MONO # 0.8 103/ul Normal 0.3-0.8 [facility] Comment on above: Performed By: #### C BC #### [facility] [address] [place] [address] Dr. Mary Herzog Monocytes/100 WBC (Bld) 4.4 % Normal 1.7-12.0 [facility] Comment on above: Performed By: #### C BC #### [facility] [address] [place] [address] Dr. Mary Herzog NEUT # 6.7 103/ul Critically high 1.4-6.5 [facility] Comment on above: Performed By: #### C BC #### [facility] [address] [address] [address] Mary Herzog Neutrophils/100 WBC (Bld) 36.3 % Critically low 43.0-75.0 [facility] Comment on above: Performed By: #### C BC #### [facility] [address] [place] [address] Dr. Mary Herzog Platelet mean volume (Bld) [Entitic vol] 10.9 fL Normal 9.5-13.5 [facility] Comment on above: Performed By: #### C BC #### [facility] [address] [address] [address] Mary Herzog PLT 279 103/ul Normal 150-450 [facility] Comment on above: Performed By: #### C BC #### [facility] [address] [place] [address] Dr. Mary Herzog RBC 5.12 106/ul Normal 4.20-5.40 [facility] Comment on above: Performed By: #### C BC #### [facility] [address] [place] [address] Dr. Mary Herzog WBC 18.3 103/ul Critically high 4.0-11.0 [facility] Comment on above: Performed By: #### C BC #### [facility] [address] [place] [address] Dr. Mary Herzog FERRITINon 05-11-2022 Ferritin [Mass/Vol] 97.0 ng/mL Normal 8.0-252.0 [facility] Comment on above: Performed By: #### F ERR #### [facility] [address] [place] [address] Dr. Mary Herzog PROF CHEM 8 (BAS METB)on Anion gap [Moles/Vol] 11.7 mmol/L Normal [facility] Comment on above: Performed By: #### V ITB12 #### [facility] [address] [place] [address] Dr. Mary Herzog Calcium [Mass/Vol] 10.1 mg/dL Normal 8.5-10.1 [facility] Comment on above: Performed By: #### V ITB12 #### [facility] [address] [address] [address] Mary Herzog Chloride [Moles/Vol] 101 mmol/L Normal 98-107 [facility] Comment on above: Performed By: #### V ITB12 #### [facility] [address] [address] [address] Mary Herzog CO2 [Moles/Vol] 30.7 mmol/L Normal 21.0-32.0 [facility] Comment on above: Performed By: #### V ITB12 #### [facility] [address] [address] [address] Mary Herzog Creatinine [Mass/Vol] 0.97 mg/dL Normal 0.55-1.02 [facility] Comment on above: Performed By: #### V ITB12 #### [facility] [address] [place] [address] Dr. Mary Herzog EGFR-AF NIGERIAN >60 Normal >=60 [facility] Comment on above: Performed By: #### V ITB12 #### [facility] [address] [address] [address] Mary Herzog EGFR-NON AF NIGERIAN 56 mL/min/1.73m2 Critically low >=60 [facility] Comment on above: Performed By: #### V ITB12 #### [facility] [address] [address] [address] Mary Herzog Glucose [Mass/Vol] 138 mg/dL Critically high 74-106 [facility] Comment on above: Performed By: #### V ITB12 #### [facility] [address] [address] [address] Mary Herzog Potassium [Moles/Vol] 4.4 mmol/L Normal 3.5-5.1 [facility] Comment on above: Performed By: #### V ITB12 #### [facility] [address] [address] [address] Mary Herzog Sodium [Moles/Vol] 139 mmol/L Normal 136-145 [facility] Comment on above: Performed By: #### V ITB12 #### [facility] [address] [place], [place] [address] Dr. Mary Herzog Urea nitrogen [Mass/Vol] 21.0 mg/dL Critically high 7.0-18 .0 [facility] Comment on above: Performed By: #### V ITB12 #### [facility] [address] [address] [address] Mary Herzog Urea nitrogen/Creatinine [Mass ratio] 21.6 mg/mg Normal [facility] Comment on above: Performed By: #### V ITB12 #### [facility] [address] [address] [address] Mary Herzog TSHon 05-11-2022 TSH 1.796 uIU/mL Normal 0.358-3.740 [facility] Comment on above: Performed By: #### V ITB12 #### [facility] [address] [address] [address] Mary Herzog Basophils Auto (Bld) [#/Vol] Ordered By: Sherwin Yepez on 10-17-2021 Basophils (Bld) [#/Vol] 0.1 10*3/uL 0.0-0.2 [facility] Basophils/100 WBC Auto (Bld) Ordered By: Sherwin Yepez on 10-17-2021 Basophils/100 WBC (Bld) 0.4 % . [facility] Blood hemoglobin measurement (mass/volume)Ordered By: Sherwin Yepez on 10-17-2021 Hemoglobin (Bld) [Mass/Vol] 14.4 g/dL 11.8-15.4 [facility] Blood leukocytes automated c ount (number/volume)Ordered By: Sherwin Yepez on 10-17-2021 WBC (Bld) [#/Vol] 19.6 10*3/uL 4.5-11.0 [facility] Creatinine and Glomerular fi ltration rate.predicted panel (S/P/Bld)Ordered By: Sherwin Yepez on 10-17-2021 Creatinine [Mass/Vol] 0.97 mg/dL 0.44-1.03 [facility] Eosinophils Auto (Bld) [#/Vo l]Ordered By: Sherwin Yepez on 10-17-2021 Eosinophils (Bld) [#/Vol] 0.0 10*3/uL 0.0-0.45 [facility] Eosinophils/100 WBC Auto (Bl d)Ordered By: Sherwin Yepez on 10-17-2021 Eosinophils/100 WBC (Bld) 0.0 % . [facility] Erythrocyte distribution wid th Auto (RBC) [Ratio]Ordered By: Sherwin Yepez on 10-17-2021 Erythrocyte distribution width (RBC) [Ratio] 13.8 % 11.9-15.3 [facility] Estimated glomerular filtrat ion rate (GFR) non- AmericanOrdered By: Sherwin Ypeez on 10-17-2021 GFR/1.73 sq M.predicted among non-blacks MDRD (S/P/Bld) [Vol rate/Area] 56 mL/Min [facility] Hematocrit Auto (Bld) [Volum e fraction]Ordered By: Sherwin Yepez on 10-17-2021 Hematocrit (Bld) [Volume fraction] 43.4 % 34.0-46.4 [facility] - Hematology and Cell countsOrdered By: Sherwin Yepez on 10-17-2021 Nucleated RBC/100 WBC (Bld) [Ratio] 0.0 % 0-0.5 [facility] Lymphocytes Auto (Bld) [#/Vo l]Ordered By: Sherwin Yepez on 10-17-2021 Lymphocytes (Bld) [#/Vol] 5.7 10*3/uL 1.00-4.8 [facility] Lymphocytes/100 WBC Auto (Bl d)Ordered By: Sherwin Yepez on 10-17-2021 Lymphocytes/100 WBC (Bld) 28.9 % . [facility] MCH Auto (RBC) [Entitic mass ]Ordered By: Sherwin Yepez on 10-17-2021 MCH (RBC) [Entitic mass] 30.0 pg 24.7-34.3 [facility] MCHC Auto (RBC) [Mass/Vol]Or dered By: Sherwin Yepez on 10-17-2021 MCHC (RBC) [Mass/Vol] 33.0 g/dL 32.0-35.0 [facility] MCV Auto (RBC) [Entitic vol] Ordered By: Sherwin Yepez on 10-17-2021 MCV (RBC) [Entitic vol] 90.7 fL 80-100 [facility] Monocytes Auto (Bld) [#/Vol] Ordered By: Sherwin Yepez on 10-17-2021 Monocytes (Bld) [#/Vol] 1.2 10*3/uL 0.0-0.8 [facility] Monocytes/100 WBC Auto (Bld) Ordered By: Sherwin Yepez on 10-17-2021 Monocytes/100 WBC (Bld) 5.9 % . [facility] Neutrophils Auto (Bld) [#/Vo l]Ordered By: Sherwin Yepez on 10-17-2021 Neutrophils (Bld) [#/Vol] 12.7 10*3/uL 1.8-7.7 [facility] Neutrophils/100 WBC Auto (Bl d)Ordered By: Sherwin Yepez on 10-17-2021 Neutrophils/100 WBC (Bld) 64.8 % . [facility] No Panel InformationOrdered By: Sherwin Yepez on 10-17-2021 Estimated GFR () > 60 mL/Min [facility] Comment on above: GFR estimated refere nce range: According to KDOQI guidelines, <60 ml/min/1.73m2 is sufficient to diagnose a patient with chronic kidney disease. Pharmacy Creatinine Clearance (Chem 42.09 [facility] Platelet Estimate Normal Normal [facility] Platelet Morphology Comment Normal Normal [facility] Platelet mean volume Auto (B ld) [Entitic vol]Ordered By: Sherwin Yepez on 10-17-2021 Platelet mean volume (Bld) [Entitic vol] 9.8 fL 6.3-10.7 [facility] Platelets Auto (Bld) [#/Vol] Ordered By: Sherwin Yepez on 10-17-2021 Platelets (Bld) [#/Vol] 238 10*3/uL 150-450 [facility] RBC Auto (Bld) [#/Vol]Ordere d By: Sherwin Yepez on 10-17-2021 RBC (Bld) [#/Vol] 4.79 10*6/uL 3.60-5.00 [facility] RBC morphologyOrdered By: Wolf Yepez on 10-17-2021 RBC morphology finding Nom (Bld) N/A [facility] Serum or plasma chloride soham surement (moles/volume)Ordered By: Sherwin Yepez on 10-17-2021 Chloride [Moles/Vol] 100 mmol/L 95-114 [facility] Serum or plasma potassium me asurement (moles/volume)Ordered By: Sherwin Yepez on 10-17-2021 Potassium [Moles/Vol] 4.9 mmol/L 3.5-5.1 [facility] Serum or plasma sodium measu rement (moles/volume)Ordered By: Sherwin Yepez on 10-17-2021 Sodium [Moles/Vol] 133 mmol/L 136-146 [facility] Serum or plasma total carbon dioxide measurement (moles/volume)Ordered By: Sherwin Yepez on 10-17-2021 CO2 [Moles/Vol] 25.3 mmol/L 22.0-30.0 [facility] Serum or plasma urea nitroge n measurement (mass/volume)Ordered By: Sherwin Yepez on 10-17-2021 Urea nitrogen [Mass/Vol] 16 mg/dL 9-23 [facility] COVID-19 Positive/NegativeOr dered By: Sherwin Yepez on 10-12-2021 SARS-CoV-2 (COVID-19) N gene RUSSEL+probe Ql (Resp) Negative Negative [facility] Comment on above: Testing for SARS-CoV -2 by RT-PCR This test was developed and its performance characteristics determined by [employer] ([employer]) and validated at the [facility]. This test has not been FDA [...] on 10-06-2021 Basophils (Bld) [#/Vol] N/A [facility] Basophils/100 WBC Auto (Bld) Ordered By: Sherwin Yepez on 10-06-2021 Basophils/100 WBC (Bld) N/A [facility] Basophils/100 WBC (Bld) 1 % 0-2 [facility] Blood hemoglobin measurement (mass/volume)Ordered By: Sherwin Yepez on 10-06-2021 Hemoglobin (Bld) [Mass/Vol] 14.7 g/dL 11.8-15.4 [facility] Blood leukocytes automated c ount (number/volume)Ordered By: Sherwin Yepez on 10-06-2021 WBC (Bld) [#/Vol] 17.0 10*3/uL 4.5-11.0 [facility] Creatinine and Glomerular fi ltration rate.predicted panel (S/P/Bld)Ordered By: Sherwin Yepez on 10-06-2021 Creatinine [Mass/Vol] 0.89 mg/dL 0.44-1.03 [facility] Eosinophils Auto (Bld) [#/Vo l]Ordered By: Sherwin Yepez on 10-06-2021 Eosinophils (Bld) [#/Vol] N/A [facility] Eosinophils/100 WBC Auto (Bl d)Ordered By: Sherwin Yepez on 10-06-2021 Eosinophils/100 WBC (Bld) N/A [facility] Erythrocyte distribution wid th Auto (RBC) [Ratio]Ordered By: Sherwin Yepez on 10-06-2021 Erythrocyte distribution width (RBC) [Ratio] 13.9 % 11.9-15.3 [facility] Estimated glomerular filtrat ion rate (GFR) non- AmericanOrdered By: Sherwin Yepez on 10-06-2021 GFR/1.73 sq M.predicted among non-blacks MDRD (S/P/Bld) [Vol rate/Area] > 60 mL/Min [facility] Hematocrit Auto (Bld) [Volum e fraction]Ordered By: Sherwin Yepez on 10-06-2021 Hematocrit (Bld) [Volume fraction] 45.0 % 34.0-46.4 [facility] - Hematology and Cell countsOrdered By: Sherwin Yepez on 10-06-2021 Nucleated RBC/100 WBC (Bld) [Ratio] 0.1 % 0-0.5 [facility] Lymphocytes Auto (Bld) [#/Vo l]Ordered By: Sherwin Yepez on 10-06-2021 Lymphocytes (Bld) [#/Vol] N/A [facility] Lymphocytes/100 WBC Auto (Bl d)Ordered By: Sherwin Yepez on 10-06-2021 Lymphocytes/100 WBC (Bld) N/A [facility] Lymphocytes/100 WBC (Bld) 43 % 18-42 [facility] Lymphocytes/100 WBC Manual c nt (Bld)Ordered By: Sherwin Yepez on 10-06-2021 Lymphocytes/100 WBC (Bld) 21 % 0-12 [facility] MCH Auto (RBC) [Entitic mass ]Ordered By: Sherwin Yepez on 10-06-2021 MCH (RBC) [Entitic mass] 29.8 pg 24.7-34.3 [facility] MCHC Auto (RBC) [Mass/Vol]Or dered By: Sherwin Yepez on 10-06-2021 MCHC (RBC) [Mass/Vol] 32.7 g/dL 32.0-35.0 [facility] MCV Auto (RBC) [Entitic vol] Ordered By: Sherwin Yepez on 10-06-2021 MCV (RBC) [Entitic vol] 90.9 fL 80-100 [facility] Monocyte %Ordered By: Sherwin mcclendon on 10-06-2021 Monocytes/100 WBC (Bld) 2 % 1-3 [facility] Monocytes Auto (Bld) [#/Vol] Ordered By: Sherwin Yepez on 10-06-2021 Monocytes (Bld) [#/Vol] N/A [facility] Monocytes/100 WBC Auto (Bld) Ordered By: Sherwin Yepez on 10-06-2021 Monocytes/100 WBC (Bld) N/A [facility] Monocytes/100 WBC Manual cnt (Bld)Ordered By: Sherwin Yepez on 10-06-2021 Monocytes/100 WBC (Bld) 6 % 2-11 [facility] Neutrophils Auto (Bld) [#/Vo l]Ordered By: Sherwin Yepez on 10-06-2021 Neutrophils (Bld) [#/Vol] N/A [facility] Neutrophils/100 WBC Auto (Bl d)Ordered By: Sherwin Yepez on 10-06-2021 Neutrophils/100 WBC (Bld) N/A [facility] No Panel InformationOrdered By: Sherwin Yepez on 10-06-2021 Estimated GFR () > 60 mL/Min [facility] Comment on above: GFR estimated refere nce range: According to KDOQI guidelines, <60 ml/min/1.73m2 is sufficient to diagnose a patient with chronic kidney disease. Pharmacy Creatinine Clearance (Chem N/A [facility] Platelet Estimate Normal Normal [facility] Platelet Morphology Comment Normal Normal [facility] Platelet mean volume Auto (B ld) [Entitic vol]Ordered By: Sherwin Yepez on 10-06-2021 Platelet mean volume (Bld) [Entitic vol] 9.2 fL 6.3-10.7 [facility] Platelets Auto (Bld) [#/Vol] Ordered By: Sherwin Yepez on 10-06-2021 Platelets (Bld) [#/Vol] 223 10*3/uL 150-450 [facility] RBC Auto (Bld) [#/Vol]Ordere d By: Sherwin Yepez on 10-06-2021 RBC (Bld) [#/Vol] 4.95 10*6/uL 3.60-5.00 [facility] RBC morphologyOrdered By: Wolf Yepez on 10-06-2021 RBC morphology finding Nom (Bld) Normal [facility] Segmented neutrophils/100 WB C Manual cnt (Bld)Ordered By: Sherwin Yepez on 10-06-2021 Segmented neutrophils/100 WBC (Bld) 27 % 50-70 [facility] Serum or plasma calcium tamie urement (mass/volume)Ordered By: Sherwin Yepez on 10-06-2021 Calcium [Mass/Vol] 9.5 mg/dL 8.2-10.2 [facility] Serum or plasma chloride soham surement (moles/volume)Ordered By: Sherwin Yepez on 10-06-2021 Chloride [Moles/Vol] 99 mmol/L 95-114 [facility] Serum or plasma glucose tamie urement (mass/volume)Ordered By: Sherwin Yepez on 10-06-2021 Glucose [Mass/Vol] 98 mg/dL 70-100 [facility] Comment on above: ADA recommended refe rence range Random Glucose Reference Range is dependent on time and content of last meal. Glucose of more than 200 mg/dL in a nonstressed, ambulatory subject supports the diagnosis of Diabetes Mellitus. Serum or plasma potassium me asurement (moles/volume)Ordered By: Sherwin Yepez on 10-06-2021 Potassium [Moles/Vol] 4.7 mmol/L 3.5-5.1 [facility] Serum or plasma sodium measu rement (moles/volume)Ordered By: Sherwin Yepez on 10-06-2021 Sodium [Moles/Vol] 135 mmol/L 136-146 [facility] Serum or plasma total carbon dioxide measurement (moles/volume)Ordered By: Sherwin Yepez on 10-06-2021 CO2 [Moles/Vol] 27.3 mmol/L 22.0-30.0 [facility] Serum or plasma urea nitroge n measurement (mass/volume)Ordered By: Sherwin Yepez on 10-06-2021 Urea nitrogen [Mass/Vol] 19 mg/dL 9-23 [facility] CNPNon 12-01-2020 ADRIAN Telephone ([employer]) MARITZA ESPINO ([id number]) 1945 F Date Time Provider Department 12/01/20 ANDREI MARIO During your visit today, we recorded the following information about you: Nicole Awad 12/01/2020 9:08 AM Signed Records faxed to [facility]. Patient to follow with Dr. Beckett. [...] Encounter Status:Closed by NICOLE VÁZQUEZ on 12/01/20 [facility] Viridiana 11-24-2020 PAULAN Telephone (KENA[employer]) MARITZA ESPINO ([id number]) 1945 F Date Time Provider Department 11/24/20 ANDREI MARIO During your visit today, we recorded the following information about you: Mai Carlson 11/24/2020 2:33 PM Signed Please sign pending lab orders for Saturday12/02/20. ThanksMai MA Vivek Abhyankar, MD 11/28/2020 2:56 PM Signed Signed nina Allergies As of Date: 11/24/2020 Noted Allergy Reaction AMOXICILLIN 11/20/2016 7 - Swelling Comments: Facial swelling RAGWEED POLLEN 11/19/2016 16 - Unknown Date Reviewed: 05/27/2020 Reviewed by: Jayson Sullivan - Fully Assessed Reason for Visit: Lab Orders [1688] Primary Visit Diagnosis:CLL (chronic lymphocytic leukemia) ([facility]) [C91.10] Order(s):CBC + DIFF [SQCBCDIF] Order #: [id number] STANDING COMP METABOLIC PANEL [SQCMP] Order #: [id number] STANDING LD LACTATE DEHYDRO [SQLD6] Order #: [id number] STANDING Prescriptions as of 11/30/2020 - amitriptyline [...] Lymphocytosis [D72.820] 12/11/2016 CLL (chronic lymphocytic leukemia) ([facility]) [C91.1*12/11/2017 Encounter Status:Closed by June on 11/30/20 [facility] CNOVSPon 06-01-2020 CNOVSP Visit (SP) Office ([facility]) MARITZA ESPINO ([id number]) 1945 F Date Time Provider Department 06/01/20 10:00 AM ANDREI MARIO During your visit today, we recorded the following information about you: Temperature Pulse Respiration Blood pressure 97.2 degrees 73/minute 18/minute 131/73 Weight Height 56.3 kg 1.579 m Andrei Mario MD 06/01/2020 10:13 AM Signed NAME: Maritza Espino CLINIC NO.: [id number] DATE OF SERVICE: June 01, 2020 Some [...] Pattern LSI BETHEL (11q22.3): Normal Pattern LSI [id number] (13q14): Normal Pattern CEP 12: Normal Pattern LSI LAMP1 (13q34): Normal Pattern IGH/CCND1 t(11;14)(q13;q32): Negative INTERPRETATION: There is a normal pattern of hybridization with each of the probes tested. 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 1. 11/21/2016 Peripheral blood Flow Cy: Specimen originated from [facility] Specimen #: [id number] Submitting Physician: FREDERICK PEREZ II, DO SPECIMEN [...] REVIEW OF (more content not included)... Normal [facility] Comp Metabolic Panelon 06-01 Albumin [Mass/Vol] 4.3 g/dL Normal 3.9-4.9 [facility] ALP [Catalytic activity/Vol] 66 U/L Normal 34-123 [facility] ALT [Catalytic activity/Vol] 13 U/L Normal 7-38 [facility] Anion gap [Moles/Vol] 8 mmol/L Low 9-18 [facility] AST [Catalytic activity/Vol] 20 U/L Normal 13-35 [facility] Bilirubin [Mass/Vol] 0.5 mg/dL Normal 0.2-1.3 [facility] Calcium [Mass/Vol] 9.4 mg/dL Normal 8.5-10.2 [facility] Chloride [Moles/Vol] 101 mmol/L Normal 97-105 [facility] CO2 [Moles/Vol] 26 mmol/L Normal 22-30 [facility] Creatinine [Mass/Vol] 1.12 mg/dL High 0.58-0.96 [facility] eGFR- Amer. 58 Normal [facility] eGFR-All Other Races 48 . Normal [facility] Comment on above: Result Comment: eGFR [...] GFR. Glucose [Mass/Vol] 97 mg/dL Normal 74-99 [facility] Comment on above: Result Comment: The [place] [employer] (ADA) provides guidance for cutoff [...] Standards of Medical Care in Diabetes 2016, [place] [employer]. Diabetes Care. 2016.39(Suppl 1). Potassium [Moles/Vol] 4.5 mmol/L Normal 3.7-5.1 [facility] Protein [Mass/Vol] 6.4 g/dL Normal 6.3-8.0 [facility] Sodium [Moles/Vol] 135 mmol/L Low 136-144 [facility] Urea nitrogen [Mass/Vol] 32 mg/dL High 7-21 [facility] LDon 06-01-2020 LD 173 U/L Normal 135-214 [facility] Remote CBCDIF (for [facility] use o nly)on 06-01-2020 Abs Baso 0.10 k/uL Normal <0.11 [facility] Abs Weber 0.97 k/uL High <0.87 [facility] Abs Neut 5.24 k/uL Normal 1.45-7.50 [facility] Absolute nRBC <0.01 Normal <0.01 [facility] Basophils/100 WBC (Bld) 0.5 % Normal [facility] DTYPE Auto Diff Normal [facility] Eosinophils (Bld) [#/Vol] 0.47 10*3/uL High <0.46 [facility] Eosinophils/100 WBC (Bld) 2.3 % Normal [facility] Erythrocyte distribution width (RBC) [Ratio] 13.3 % Normal 11.5-15.0 [facility] Hematocrit (Bld) [Volume fraction] 44.1 % Normal 36.0-46.0 [facility] Hemoglobin (Bld) [Mass/Vol] 14.3 g/dL Normal 11.5-15.5 [facility] Lymphocytes (Bld) [#/Vol] 13.74 10*3/uL High 1.00-4.00 [facility] Lymphocytes/100 WBC (Bld) 67.0 % Normal [facility] MCH 29.6 pG Normal 26.0-34.0 [facility] MCHC (RBC) [Mass/Vol] 32.4 g/dL Normal 30.5-36.0 [facility] MCV (RBC) [Entitic vol] 91.3 fL Normal 80.0-100.0 C [facility] Monocytes/100 WBC (Bld) 4.7 % Normal C [facility] Neutrophils/100 WBC (Bld) 25.5 % Normal [facility] NRBCs 0.0 /100 WBC Normal 0 [facility] Platelet mean volume (Bld) [Entitic vol] 10.5 fL Normal 9.0-12.7 [facility] Platelets (Bld) [#/Vol] 309 10*3/uL Normal 150-400 [facility] RBC (Bld) [#/Vol] 4.83 10*6/uL Normal 3.90-5.20 [facility] WBC (Bld) [#/Vol] 20.52 10*3/uL High 3.70-11.00 [facility] CNPNon 05-27-2020 CNPN Telephone ([facility]) MARITZA ESPINO ([id number]) 1945 F Date Time Provider Department 05/27/20 ANDREI MARIO During your visit today, we recorded the following information about you: Allergies As of Date: 05/27/2020 Noted Allergy Reaction AMOXICILLIN 11/20/2016 7 - Swelling Comments: Facial swelling RAGWEED POLLEN 11/19/2016 16 - Unknown Date Reviewed: 05/27/2020 Reviewed by: Jayson Sullivan - Fully Assessed Reason for Visit: Lab Orders [8198] Primary Visit Diagnosis:CLL (chronic lymphocytic leukemia) ([facility]) [C91.10] 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] Order(s):CBC + DIFF (FOR REMOTE [facility] USE) [SQRCBCDF] Order #: [id number] FUTURE COMP METABOLIC PANEL [SQCMP] Order #: [id number] FUTURE LD LACTATE DEHYDRO [SQLD6] Order #: [id number] FUTURE Prescriptions as of 05/27/2020 Sig: METOPROLOL [...] by JAYSON SULLIVAN CNP on 05/27/20 Normal [facility] Vital Signs Date Time Vital Sign Value Performing Clinician Facility 11-11-2024 11:240400 Body height 157.48 cm Evaristo Anguiano MD Work Phone: [facility] 11-11-2024 11:24-0400 Body mass index (BMI) [Ratio] 21.2 kg/m2 Evaristo Anguiano MD Work Phone: [facility] 11-11-2024 11:24-0400 Body weight 52.61 kg Evaristo Anguiano MD Work Phone: [facility] 11-11-2024 11:24-0400 Diastolic blood pressure 78 mm[Hg] Evaristo Anguiano MD Work Phone: [facility] 11-11-2024 11:24-0400 Heart rate 77 /min Evaristo Anguiano MD Work Phone: [facility] 11-11-2024 11:24-0400 Systolic blood pressure 172 mm[Hg] Evaristo Anguiano MD Work Phone: [facility] 10-19-2024 09:53-0400 Body height 157.48 cm Evaristo Anguiano MD Work Phone: [facility] 10-19-2024 09:53-0400 Body mass index (BMI) [Ratio] 21.1 kg/m2 Evaristo Anguiano MD Work Phone: [facility] 10-19-2024 09:53-0400 Body weight 52.33 kg Evaristo Anguiano MD Work Phone: [facility] 10-19-2024 09:53-0400 Diastolic blood pressure 81 mm[Hg] Evaristo Anguiano MD Work Phone: [facility] 10-19-2024 09:53-0400 Heart rate 81 /min Evaristo Anguiano MD Work Phone: [facility] 10-19-2024 09:53-0400 Respiratory rate 12 /min Evaristo Anguiano MD Work Phone: [facility] 10-19-2024 09:53-0400 SaO2% (BldA) [Mass fraction] 98 % Evaristo Anguiano MD Work Phone: [facility] 10-19-2024 09:53-0400 Systolic blood pressure 149 mm[Hg] Evaristo Anguiano MD Work Phone: [facility] 09-15-2024 14:18-0400 Body height 157.48 cm Evaristo Anguiano MD Work Phone: [facility] 09-15-2024 14:18-0400 Body mass index (BMI) [Ratio] 20.8 kg/m2 Evaristo Anguiano MD Work Phone: [facility] 09-15-2024 14:18-0400 Body weight 51.7 kg Evaristo Anguiano MD Work Phone: [facility] 09-15-2024 14:18-0400 Diastolic blood pressure 90 mm[Hg] Evaristo Anguiano MD Work Phone: [facility] 09-15-2024 14:18-0400 Heart rate 98 /min Evaristo Anguiano MD Work Phone: [facility] 09-15-2024 14:18-0400 Systolic blood pressure 168 mm[Hg] Evaristo Anguiano MD Work Phone: [facility] 09-11-2024 09:03-0400 Body height 157.48 cm Evaristo Anguiano MD Work Phone: [facility] 09-11-2024 09:03-0400 Body mass index (BMI) [Ratio] 20.9 kg/m2 Evaristo Anguiano MD Work Phone: [facility] 09-11-2024 09:03-0400 Body weight 51.93 kg Evaristo Anguiano MD Work Phone: [facility] 09-11-2024 09:03-0400 Diastolic blood pressure 81 mm[Hg] Evaristo Anguiano MD Work Phone: [facility] 09-11-2024 09:03-0400 Heart rate 97 /min Evaristo Anguiano MD Work Phone: [facility] 09-11-2024 09:03-0400 Systolic blood pressure 130 mm[Hg] Evaristo Anguiano MD Work Phone: [facility] 06-15-2024 10:23-0400 Body height 157.48 cm [facility] 06-15-2024 10:23-0400 Body mass index (BMI) [Ratio] 21.4 kg/m2 [facility] 06-15-2024 10:23-0400 Body weight 53.07 kg [facility] 06-15-2024 10:23-0400 Diastolic blood pressure 84 mm[Hg] [facility] 06-15-2024 10:23-0400 Heart rate 87 /min [facility] 06-15-2024 10:23-0400 Respiratory rate 18 /min [facility] 06-15-2024 10:23-0400 SaO2% (BldA) [Mass fraction] 96 % [facility] 06-15-2024 10:23-0400 Systolic blood pressure 176 mm[Hg] [facility] 05-26-2024 13:12-0500 Body height 157.48 cm [facility] 05-26-2024 13:12-0500 Body mass index (BMI) [Ratio] 21 kg/m2 [facility] 05-26-2024 13:12-0500 Body weight 52.16 kg [facility] 05-26-2024 13:12-0500 Diastolic blood pressure 90 mm[Hg] [facility] 05-26-2024 13:12-0500 Heart rate 96 /min [facility] 05-26-2024 13:12-0500 Systolic blood pressure 166 mm[Hg] [facility] 01-02-2024 07:50-0400 Body height 157.48 cm [facility] 01-02-2024 07:50-0400 Body mass index (BMI) [Ratio] 20.9 kg/m2 [facility] 01-02-2024 07:50-0400 Body weight 51.93 kg [facility] 01-02-2024 07:50-0400 Diastolic blood pressure 82 mm[Hg] [facility] 01-02-2024 07:50-0400 Heart rate 86 /min [facility] 01-02-2024 07:50-0400 Respiratory rate 16 /min [facility] 01-02-2024 07:50-0400 SaO2% (BldA) [Mass fraction] 96 % [facility] 01-02-2024 07:50-0400 Systolic blood pressure 124 mm[Hg] [facility] 08-14-2023 13:10-0400 Diastolic blood pressure 84 mm[Hg] Papito Tripp [facility] 08-14-2023 13:10-0400 Mean blood pressure 109 mm[Hg] Papito Tripp [facility] 08-14-2023 13:10-0400 Systolic blood pressure 160 mm[Hg] Papito Tripp [facility] 08-14-2023 13:07-0400 Blood Pressure Location Papito Tripp [facility] 08-14-2023 13:07-0400 Diastolic blood pressure 83 mm[Hg] Mohamad Mouchli [facility] 08-14-2023 13:07-0400 Heart rate 92 /min Mohamad Mouchli [facility] 08-14-2023 13:07-0400 Respiratory rate 16 /min Mohamad Mouchli [facility] 08-14-2023 13:07-0400 Systolic blood pressure 162 mm[Hg] Mohamad Mouchli [facility] 07-10-2023 11:25-0400 Diastolic blood pressure 82 mm[Hg] Mohamad Mouchli [facility] 07-10-2023 11:25-0400 Heart rate 86 /min Mohamad Mouchli [facility] 07-10-2023 11:25-0400 Respiratory rate 17 /min Mohamad Mouchli [facility] 07-10-2023 11:25-0400 SaO2% (BldA) [Mass fraction] 95 % Mohamad Mouchli [facility] 07-10-2023 11:25-0400 Systolic blood pressure 141 mm[Hg] Mohamad Mouchli [facility] 07-10-2023 11:10-0400 Diastolic blood pressure 76 mm[Hg] Mohamad Mouchli [facility] 07-10-2023 11:10-0400 Heart rate 80 /min Mohamad Mouchli [facility] 07-10-2023 11:10-0400 Respiratory rate 12 /min Mohamad Mouchli [facility] 07-10-2023 11:10-0400 SaO2% (BldA) [Mass fraction] 98 % Mohamad Mouchli [facility] 07-10-2023 11:10-0400 Systolic blood pressure 119 mm[Hg] Mohamad Mouchli [facility] 07-10-2023 11:05-0400 Diastolic blood pressure 66 mm[Hg] Mohamad Mouchli [facility] 07-10-2023 11:05-0400 Heart rate 73 /min Mohamad Mouchli [facility] 07-10-2023 11:05-0400 Respiratory rate 13 /min Mohamad Mouchli [facility] 07-10-2023 11:05-0400 SaO2% (BldA) [Mass fraction] 96 % Mohamad Mouchli [facility] 07-10-2023 11:05-0400 Systolic blood pressure 106 mm[Hg] Mohamad Mouchli [facility] 07-10-2023 10:55-0400 Body temperature 97.52 [degF] Mohamad Mouchli [facility] 07-10-2023 10:50-0400 Respiratory rate 15 /min Mohamad Mouchli [facility] 07-10-2023 10:45-0400 Respiratory rate 15 /min Mohamad Mouchli [facility] 07-10-2023 10:40-0400 Respiratory rate 15 /min Mohamad Mouchli [facility] 07-10-2023 08:49-0400 Blood Pressure Location Mohamad Mouchli [facility] 07-10-2023 08:49-0400 Body temperature 97.52 [degF] Papito Tripp [facility] 07-03-2023 08:18-0400 Body height 157.48 cm MD [facility] 07-03-2023 08:18-0400 Body mass index (BMI) [Ratio] 20.1 kg/m2 MD [facility] 07-03-2023 08:18-0400 Body weight 49.95 kg MD [facility] 07-03-2023 08:18-0400 Diastolic blood pressure 80 mm[Hg] MD [facility] 07-03-2023 08:18-0400 Heart rate 91 /min MD [facility] 07-03-2023 08:18-0400 Systolic blood pressure 134 mm[Hg] MD [facility] 06-17-2023 10:28-0400 Body temperature 97.5 [degF] MD [facility] 06-17-2023 10:28-0400 Body weight 49.89 kg MD Eugenio Beckett [facility] 06-17-2023 10:28-0400 Diastolic blood pressure 92 mm[Hg] [facility]-17-[facility]23 10:28-0400 Heart rate 96 /min MD Eugenio Beckett [facility] 06-17-2023 10:28-0400 Respiratory rate 16 /min MD [facility] 06-17-2023 10:28-0400 SaO2% (BldA) [Mass fraction] 96 % MD [facility] 06-17-2023 10:28-0400 Systolic blood pressure 169 mm[Hg] MD [facility] 06-13-2023 09:42-0400 Body height 157.48 [facility]-13-[facility] 09:42-0400 Body mass index (BMI) [Ratio] 20.3 kg/m2 MD Eugen[facility] 06-13-2023 09:42-0400 Body weight 50.46 kg MD [facility] 06-13-2023 09:42-0400 Diastolic blood pressure 87 mm[Hg] MD [facility] 06-13-2023 09:42-0400 Heart rate 93 /min MD [facility] 06-13-2023 09:42-0400 Systolic blood pressure 164 mm[Hg] MD [facility] 05-27-2023 12:06-0500 Diastolic blood pressure 86 mm[Hg] Mohamad Mouchli [facility] 05-27-2023 12:06-0500 Mean blood pressure 108 mm[Hg] Mohamad Mouchli [facility] 05-27-2023 12:06-0500 Systolic blood pressure 151 mm[Hg] Mohamad Mouchli [facility] 05-27-2023 12:01-0500 Blood Pressure Location Mohamad Mouchli [facility] 05-27-2023 12:01-0500 Body temperature 97.34 [degF] Mohamad Mouchli [facility] 05-27-2023 12:01-0500 Diastolic blood pressure 90 mm[Hg] Mohamad Mouchli [facility] 05-27-2023 12:01-0500 Heart rate 91 /min Mohamad Mouchli [facility] 05-27-2023 12:01-0500 Respiratory rate 14 /min Mohamad Mouchli [facility] 05-27-2023 12:01-0500 Systolic blood pressure 158 mm[Hg] Mohamad Mouchli [facility] 04-23-2023 08:45-0500 Body height 157.48 cm Evaristo Anguiano Other [facility] 04-23-2023 08:45-0500 Body mass index (BMI) [Ratio] 20.37 kg/m2 Evaristo Anguiano Other [facility] [employer] Other 04-23-2023 08:45-0500 Body weight 50.53 kg Evaristo Anguiano Other [facility] 04-23-2023 08:45-0500 Diastolic blood pressure 78 mm[Hg] Evaristo Anguiano Other [facility] 04-23-2023 08:45-0500 Systolic blood pressure 130 mm[Hg] Evaristo Anguiano Other [facility] 04-16-2023 13:30-0500 Body height 157.48 cm Evaristo Anguiano Other [facility] 04-16-2023 13:30-0500 Body mass index (BMI) [Ratio] 20.67 kg/m2 Evaristo Anguiano Other [facility] [employer] Other 04-16-2023 13:30-0500 Body weight 51.26 kg Evaristo Anguiano Other [facility] [employer] Other 04-16-2023 13:30-0500 Body weight 51.25 kg MD Eugenio Beckett [facility] 04-16-2023 13:30-0500 Diastolic blood pressure 78 mm[Hg] Evaristo Anguiano Other [facility] 04-16-2023 13:30-0500 SaO2% (BldA) [Mass fraction] 97 % Evaristo Anguiano Other [facility] [employer] Other 04-16-2023 13:30-0500 Systolic blood pressure 120 mm[Hg] Evaristo Anguiano Other [facility] 02-11-2023 13:15-0500 Body height 157.48 cm Evaristo Anguiano Other [employer] Other 02-11-2023 13:15-0500 Body mass index (BMI) [Ratio] 20.81 kg/m2 Evaristo Anguiano Other [employer] Other 02-11-2023 13:15-0500 Body weight 51.62 kg Evaristo Anguiano Other [employer] Other 02-11-2023 13:15-0500 Diastolic blood pressure 87 mm[Hg] Evaristo Anguiano Other [employer] Other 02-11-2023 13:15-0500 Systolic blood pressure 149 mm[Hg] Evaristo Anguiano Other [employer] Other 01-01-2023 08:30-0400 Body height 157.48 cm Evaristo Anguiano Other [employer] Other 01-01-2023 08:30-0400 Body mass index (BMI) [Ratio] 21.32 kg/m2 Evaristo Anguiano Other [employer] Other 01-01-2023 08:30-0400 Body weight 52.89 kg Evaristo Anguiano Other [employer] Other 01-01-2023 08:30-0400 Diastolic blood pressure 84 mm[Hg] Evaristo Anguiano Other [employer] Other 01-01-2023 08:30-0400 Systolic blood pressure 154 mm[Hg] Evaristo Anguiano Other [employer] Other 07-02-2022 09:30-0400 Body height 157.48 cm Evaristo Anguiano Other [employer] Other 07-02-2022 09:30-0400 Body mass index (BMI) [Ratio] 21.58 kg/m2 Evaristo Anguiano Other [employer] Other 07-02-2022 09:30-0400 Body weight 53.52 kg Evaristo Anguiano Other [employer] Other 07-02-2022 09:30-0400 Diastolic blood pressure 72 mm[Hg] Evaristo Anguiano Other [employer] Other 07-02-2022 09:30-0400 SaO2% (BldA) [Mass fraction] 98 % Evaristo Anguiano Other [employer] Other 07-02-2022 09:30-0400 Systolic blood pressure 138 mm[Hg] Evaristo Anguiano Other [employer] Other 06-18-2022 10:53-0400 Body temperature 97.8 [degF] MD [facility] 06-18-2022 10:53-0400 Body weight 53.52 kg MD [facility] 06-18-2022 10:53-0400 Diastolic blood pressure 77 mm[Hg] MD [facility] 06-18-2022 10:53-0400 Heart rate 91 /min MD [facility] 06-18-2022 10:53-0400 Respiratory rate 16 /min MD [facility] 06-18-2022 10:53-0400 SaO2% (BldA) [Mass fraction] 94 % MD [facility] 06-18-2022 10:53-0400 Systolic blood pressure 148 mm[Hg] MD [facility] 05-11-2022 09:45-0500 Body height 157.48 cm Evaristo Anguiano Other [employer] Other 05-11-2022 09:45-0500 Body mass index (BMI) [Ratio] 21.95 kg/m2 Evaristo Anguiano Other [employer] Other 05-11-2022 09:45-0500 Body weight 54.43 kg Evaristo Anguiano Other [employer] Other 05-11-2022 09:45-0500 Diastolic blood pressure 82 mm[Hg] Evaristo Anguiano Other [employer] Other 05-11-2022 09:45-0500 SaO2% (BldA) [Mass fraction] 97 % Evaristo Anguiano Other [employer] Other 05-11-2022 09:45-0500 Systolic blood pressure 130 mm[Hg] Evaristo Anguiano Other [employer] Other 04-05-2022 15:30-0500 Body height 157.48 cm Evaristo Anguiano Other [employer] Other 04-05-2022 15:30-0500 Body mass index (BMI) [Ratio] 21.58 kg/m2 Evaristo Anguiano Other [employer] Other 04-05-2022 15:30-0500 Body weight 53.52 kg Evaristo Anguiano Other [employer] Other 04-05-2022 15:30-0500 Diastolic blood pressure 88 mm[Hg] Evaristo Anguiano Other [employer] Other 04-05-2022 15:30-0500 SaO2% (BldA) [Mass fraction] 98 % Evaristo Anguiano Other [facility] [employer] Other 04-05-2022 15:30-0500 Systolic blood pressure 140 mm[Hg] Evaristo Anguiano Other [facility] [employer] Other 10-17-2021 15:57-0400 Body temperature 97.6 [degF] MD Evraisto Anguiano Work Phone: [facility] 10-17-2021 15:57-0400 Diastolic blood pressure 67 mm[Hg] MD Evaristo Anguiano Work Phone: [facility] 10-17-2021 15:57-0400 Heart rate 76 /min MD Evaristo Anguiano Work Phone: [facility] 10-17-2021 15:57-0400 Respiratory rate 14 /min MD Evaristo Anguiano Work Phone: [facility] 10-17-2021 15:57-0400 SaO2% (BldA) [Mass fraction] 91 % MD Evaristo Anguiano Work Phone: [facility] 10-17-2021 15:57-0400 Systolic blood pressure 112 mm[Hg] MD Evaristo Anguiano Work Phone: [facility] 10-17-2021 09:45-0400 Body height 160.02 cm MD Evaristo Anguiano Work Phone: [facility] 10-17-2021 08:42-0400 Inhaled oxygen flow rate 2 L/min MD Evaristo Anguiano Work Phone: [facility] 10-17-2021 05:08-0400 Body weight 55.3 kg MD Evaristo Anguiano Work Phone: [facility] 10-16-2021 11:25-0400 Body mass index (BMI) [Ratio] 20 kg/m2 MD Evaristo Anguiano Work Phone: [facility] 06-16-2021 14:43-0400 Body height 159 cm MD Eugenio Beckett [facility] Encounters Encounter Date Encounter Type Care Provider Facility Start: 11-27-2024 End: 11-27-2024 ambulatory Evaristo Anguiano MD Work Phone: [facility] Work Phone: Start: 11-27-2024 End: 11-27-2024 Patient encounter procedure Evaristo Anguiano MD -[facility] Work Phone: Start: 11-11-2024 End: 11-11-2024 ambulatory Evaristo Anguiano MD Work Phone: [facility] Work Phone: Start: 11-11-2024 End: 11-11-2024 Patient encounter procedure Evaristo Anguiano MD -[facility] Work Phone: Start: 10-26-2024 Non-patient / Non-visit Jade Mott CMA -[facility] Work Phone: Start: 10-25-2024 Non-patient / Non-visit Jason Mott DO -[facility] Work Phone: Start: 10-19-2024 Patient encounter procedure Evaristo Anguiano MD Work Phone: [facility] Start: 10-19-2024 End: 10-19-2024 ambulatory Evaristo Anguiano MD Work Phone: [facility] Work Phone: Start: 10-19-2024 End: 10-19-2024 Patient encounter procedure Evaristo Anguiano MD -[facility] Work Phone: Start: 09-15-2024 End: 09-15-2024 Patient encounter procedure Evaristo Anguiano MD -[facility] Work Phone: Start: 09-11-2024 End: 09-11-2024 Patient encounter procedure Evaristo Anguiano MD -[facility] Work Phone: Start: 06-15-2024 End: 06-15-2024 ambulatory [facility] Work Phone: Start: 06-15-2024 End: 06-15-2024 Patient encounter procedure [facility] Work Phone: Start: 06-01-2024 End: 06-01-2024 ambulatory Papito Tripp Facility:[facility] Start: 05-26-2024 End: 05-26-2024 ambulatory [facility] Work Phone: Start: 05-26-2024 End: 05-26-2024 Patient encounter procedure [facility] Work Phone: Start: 01-02-2024 End: 01-02-2024 ambulatory [facility] Work Phone: Start: 01-02-2024 End: 01-02-2024 Patient encounter procedure [facility] Work Phone: Start: 08-14-2023 End: 08-14-2023 ambulatory Papito Tripp Facility:[facility] Start: 08-14-2023 End: 08-14-2023 Patient encounter procedure Papito Tripp [facility] Start: 07-10-2023 End: 07-10-2023 Patient encounter procedure Papito Tripp [facility] Start: 07-03-2023 End: 07-03-2023 ambulatory MD Eugenio Beckett [facility] Work Phone: Start: 07-03-2023 End: 07-03-2023 Patient encounter procedure MD Eugenio Beckett [facility] Work Phone: Start: 06-28-2023 Non-patient / Non-visit MD Eugenio Beckett [facility] Work Phone: Start: 06-17-2023 Registered Recurring [facility] Work Phone: Start: 06-17-2023 End: 06-17-2023 ambulatory MD Eugenio Beckett [facility] Work Phone: Start: 06-17-2023 End: 06-17-2023 Patient encounter procedure MD Eugenio Beckett [facility] Work Phone: Start: 06-13-2023 End: 06-13-2023 ambulatory MD Eugenio Beckett [facility] Work Phone: Start: 06-13-2023 End: 06-13-2023 Patient encounter procedure MD Eugenio Beckett [facility] Work Phone: Start: 06-12-2023 Registered Recurring MD [facility] Work Phone: Start: 05-27-2023 End: 05-27-2023 Patient encounter procedure Papito Tripp [facility] Start: 04-30-2023 End: 04-30-2023 ambulatory Evaristo Anguiano Other [employer] Other Start: 04-30-2023 Telephone encounter Evaristo Anguiano [facility] Start: 04-23-2023 End: 04-23-2023 ambulatory Evaristo Anguiano Other [employer] Other Start: 04-23-2023 Office outpatient visit 15 minutes Evaristo Anguiano [facility] Start: 04-23-2023 End: 04-23-2023 Patient encounter procedure MD Eugenio Beckett [facility]- Start: 04-16-2023 End: 04-16-2023 ambulatory Evaristo Anguiano Other [employer] Other Start: 04-16-2023 Office outpatient visit 15 minutes Evaristo Anguiano [facility] Start: 04-16-2023 End: 04-16-2023 Patient encounter procedure MD Eugenio Beckett [facility]- Start: 02-11-2023 End: 02-11-2023 ambulatory Evaristo Anguiano Other [employer] Other Start: 02-11-2023 Office outpatient visit 15 minutes Evaristo Anguiano [facility] Start: 02-11-2023 Telephone encounter Evaristo Anguiano [facility] Start: 01-14-2023 End: 01-14-2023 ambulatory Evaristo Anguiano Other [employer] Other Start: 01-14-2023 Telephone encounter Evaristo Anguiano [facility] Start: 01-01-2023 End: 01-01-2023 ambulatory Evaristo Anguiano Other [employer] Other Start: 01-01-2023 Office outpatient visit 25 minutes Evaristo Anguiano [facility] Start: 08-22-2022 End: 08-22-2022 ambulatory KRISHAN GONSALEZ Facility:[facility] Start: 07-06-2022 End: 07-07-[address] SAUNDERS LISTED REQUEST Facility:[facility] Start: 07-02-2022 End: 07-02-2022 ambulatory Evaristo Anguiano Other [employer] Other Start: 07-02-2022 Office outpatient visit 15 minutes Evaristo Anguiano [facility] Start: 05-18-2022 End: 05-18-2022 ambulatory Evaristo Anguiano Other [employer] Other Start: 05-18-2022 Telephone encounter Evaristo Anguiano [facility] Start: 05-17-2022 End: 05-17-2022 ambulatory Evaristo Anguiano Other [employer] Other Start: 05-17-2022 Telephone encounter Evaristo Anguiano [facility] Start: 05-11-2022 Office outpatient visit 15 minutes Evaristo Anguiano [facility] Start: 05-11-2022 End: 05-12-[address] EVARISTO ANGUIANO [facility] [employer] Other Start: 05-01-2022 End: 05-01-2022 ambulatory Evaristo Anguiano Other [place] [employer] Other Start: 05-01-2022 Telephone encounter Evaristo Anguiano [facility] Start: 04-05-2022 End: 04-05-2022 ambulatory Evaristo Anguiano Other [facility] [employer] Other Start: 04-05-2022 Office outpatient visit 15 minutes Evaristo Anguiano [facility] Start: 10-16-2021 End: 10-17-2021 Admission to same day surgery center MD Evaristo Anguiano Work Phone: [facility] [place] Start: 10-12-2021 End: 10-12-2021 Patient encounter procedure MD Evaristo Anguiano Work Phone: [facility]ok-Bmt-Fyglivgv Testing Start: 10-06-2021 End: 10-06-2021 Patient encounter procedure MD Evaristo Anguiano Work Phone: [facility] Tui-Oxd-Vgopdvev Testing Start: 08-31-2021 End: 08-31-2021 Departed Referred MD Evaristo Anguiano Work Phone: [facility] [place] Start: 08-29-2021 End: 08-29-2021 Patient encounter procedure MD Evaristo Anguiano Work Phone: [facility] [place] Procedures Date Procedure Procedure Detail Performing Clinician [...] Maryjeovany Sammiblanca Tonsillar structure (palatine) (body structure) Papito Chapablanca Plan of Treatment Date Care Activity Detail Author Start: 05-26-2024 Patient referral [facility] Work Phone: Start: 10-17-2021 Administration of pr ophylactic treatment [facility] Work Phone: Start: 10-17-2021 [facility] Work Phone: Start: 06-16-2021 [facility] Comprehensive metabo lic 1999 panel - Serum or Plasma [facility] Comprehensive metabo lic 1999 panel - Serum or Plasma [facility] EKG 12 channel panel [facility] MG Breast - bilateral Screening [facility] Patient referral [facility] Work Phone: US Heart Transthoracic [facility] US.doppler Carotid a rteries - bilateral [facility] XR Shoulder - right Views Fi [facility] Immunizations Immunization Date Immunization Notes Care Provider Fa cility 12-25-2022 influenza virus vaccine, unspecified formulation Papito Tripp [facility] 02-13-2022 COVID-19 Pfizer (Pediatric) Evaristo Anguiano Other [facility] 02-13-2022 SARS-CoV-2 (COVID-19 ) [id number] Papito Tripp [facility] 12-13-2021 influenza virus vaccine, split virus (incl. purified surface antigen) Evaristo Anguiano Other [employer] Other 12-13-2021 influenza virus vaccine, unspecified formulation Mohamad Mouchli [facility] 01-02-2021 influenza virus vaccine, split virus (incl. purified surface antigen) Evaristo Anguiano Other [employer] Other 01-02-2021 influenza virus vaccine, unspecified formulation Mohamad Mouchli [facility] 12-19-2020 COVID-19 mRNA Comirnatwinsome (Pfizer) MD Evaristo Anguiano Work Phone: [facility] Comment on above: Result Comment: 2023: [id number] 05-18-2020 COVID-19 mRNA Comirnatwinsome (Pfizer) MD Evaristo Anguiano Work Phone: [facility] Comment on above: Result Comment: 2023: [id number] 04-27-2020 COVID-19 mRNA Comirnaty (Pfizer) MD Evaristo Anguiano Work Phone: [facility] Comment on above: Result Comment: 2023: [id number] 11-29-2019 influenza virus vaccine, unspecified formulation Mohamad Mouchli [facility] 12-23-2018 influenza virus vaccine, unspecified formulation Mohamad Mouchli [facility] 01-31-2018 pneumococcal polysaccharide vaccine, 23 valent Evaristo Anguiano Other [facility] 01-20-2018 influenza virus vaccine, unspecified formulation Mohamad Mouchli [facility] 01-21-2017 influenza virus vaccine, unspecified formulation Mohamad Mouchli [facility] 01-21-2017 pneumococcal conjuga te vaccine, 13 kathy Anguiano Other [facility] Payers Date Payer Category Payer Medicare [id number] [id number] 2023 Unknown [id number] 1957 Medicare [id number] 1957 Self-pay [id number] 1957 Unknown [id number] 1945 Unknown [id number] 2.16.84 [id number] 1945 Unknown [id number] 2.16.84 [id number] 1945 Unknown [id number] 2.16.84 [id number] 1945 Unknown [id number] 2.16.8 [id number] 1945 Unknown [id number] 2.16.8 [id number] Unknown [id number] 2.16.84 [id number] Social History Date Type Detail Facility Start: 10-06-2021 End: 10-19-2024 Tobacco smoking status NHIS Never smoked tobacco (finding) [facility] Start: 1945 Sex Assigned At Female F [facility] Sex Assigned At [facility] Start: 05-26-2024 End: 06-15-2024 Sex Female (finding) [facility] Goals Date Patient Goal Desired Activity /State Functional Status Date Assessment Result Facility 08-14-2023 Functional Status N/A [facility] 07-10-2023 Functional Status N/A [facility] 05-27-2023 Functional Status N/A [facility] 10-17-2021 Functional status Patient at Baseline [facility] Work Phone: Mental Status Date Assessment Result Facility 10-17-2021 Cognitive function Cognitive Sta tus Patient at Baseline [facility] Work Phone: Clinical Notes 06-01-2020 to 09-11-2024 Note Date & Type Note Facility 09-11-2024 Evaluation note Diagnosis Onset Date Resolution Urticaria of unknown origin acute September 11, 2024 9:03am Shingles rash acute September 15, 2024 2:00pm Family history of diabetes mellitus acute October 19 9:49am Screening mammogram for breast cancer acute October 19 9:49am [facility] Work Phone: 1(770) 949-786506-20-2025 Evaluation note* Diagnosis Onset Date Resolution Status [...] October 19, 2024 9:49am Essential hypertension acute Au bertha 2024 11:19am [facility] Work Phone: 1(359) 917-930106-20-2025 Evaluation note* Diagnosis Onset Date Resolution Status [...] October 19, 2024 9:49am Essential hypertension acute Au 2024 11:19am Syncope acute November 11 11:19am [facility] Work Phone: 1(921) 533-196403-24-2025 [facility] [place] [address] Cancer Center Note Signed Patient: Maritza Espino MR#: [id number] 1524 : 1945 Acct:[id number] Age/Sex: 79 / F Type: REG AMB [...] well. She followed initially with me at [facility] and then Dr. Beckett at [facility] and now she is following with me [...] follows with Dr. Evaristo Anguiano, lives in [place]. she is on a steroid for a [...] No concerns voiced at time of intake. [facility] History Attestation statement: The following information [...] DO DD/ 1019 Signed By: 06/15/24 1044 [facility]03-04-2025 Evaluation note* Diagnosis Onset Date Resolution Status Admit Date Essential hypertension acute Ma rch 2024 1:09pm GERD without esophagitis acute May 26, 2024 1:09pm Irregular heart rate acute George h 2024 1:09pm CLL (chronic lymphocytic leukemia) acute June 15, 2024 10:11am Hiatal hernia acute June 15, 2024 10:11am [facility] Work Phone: 1(163) 436-378404-17-2024 Evaluation + Plan noteExtracted from: Title:ANES Post-operative Note - General Author: Darius Nelson Jr., DO Date:07/10/23 Plan Transfer/Discharge: Transfer/Discharge Discharge when meets criteria ( From PACU to Ambulatory Surgery Unit, and To home ). Extracted from: Title:ANES Pre-operative Note - Endo Author:Darius Elizabeth Jr., DO Date:07/10/23 Plan [place] [employer] Anesthesiologists (ASA) physical status classification: Class III. Anesthetic Preoperative Plan: Anesthesia General, and -TIVA. Future Scheduled Tests Laboratory* Calprotectin, Fecal 06/24/23 * Fecal WBC Lactoferrin 06/24/23 * Giardia lamblia, Direct Detection EIA 06/24/23 * O & P Exam, Routine 06/24/23 * Rotavirus Ab 06/24/23 * Clostridium Difficile PCR 06/24/23 * Enteric Panel by PCR 06/24/23 [facility]04-17-2024 Hospital Discharge instructions Patient Education 07/10/2023 11:13:46 Colonoscopy, Care After Surgery Salam (CUSTOM) Colonoscopy Care After Surgery Please read the instructions outlined below and refer to this sheet in the next few weeks. These discharge instructions provide you with general information on caring for yourself after you leave thespital. Your doctor may also give you specific [...] 3 times a day. General instructions Take yfco-gza-ntnaisy and prescription medicines only as told by [...] provider. Document Revised: 09/20/2021 Document Reviewed: 09/20/2021 [employer] Patient Education 2022 [employer]. 07/10/2023 11:13:46 Diverticulosis MAGR (CUSTOM) Diverticulosis Many [...] unsweetened, w/added ascorbic acid 1 cup 0.5 Toole 1 cup 0.7 Vegetables Cooked Green beans 1 cup 4.0 Carrots 1/2 cup sliced 2.3 Peas 1 cup 8.8 Potato (baked, with skin) 1 medium potato 3.8 Raw [place] (with peel) 1 cucumber 1.5 Lettuce 1 [...] 8.7 Peanuts 1/2 cup 7.9 Chart from [facility] 2013. SEEK IMMEDIATE MEDICAL CARE IF: You [...] Nutrient Database for Standard Reference. Available at http://www.Peg Bandwidth.usda.gov/fnic/foodcomp/search/. Information adapted from: [facility] Patient Information 2010 [place]. [facility] 2012 http://www.Printland/contents/fgmlosdigavq-rcpyzvx-xfejcj-the-basics Follow Up Care 07/02/2023 08:30:53 With:Papito Tripp Address: [address] [place] [address], [address] [place] [address]- [phone] Business (1) When: Unknown Comments:office wll call for follow up [facility]04-01-2024 Evaluation + Plan note Future Scheduled Tests Laboratory* Calprotectin, Fecal 06/24/23 * Fecal WBC Lactoferrin 06/24/23 * Giardia lamblia, Direct Detection EIA 06/24/23 * O & P Exam, Routine 06/24/23 * Rotavirus Ab 06/24/23 * Clostridium Difficile PCR 06/24/23 * Enteric Panel by PCR 06/24/23 [facility] 01-30-2024 Evaluation note* Encounter Date Diagnosis Assessment Notes Treatment Notes Treatment Clinical Notes Mar, Acute diarrhea (ICD-10 - R19.7) Trial of levsin, pt requests referral to GI [employer] Other 01-23-2024 Evaluation note* Encounter Date Diagnosis Assessment Notes Treatment Notes Treatment Clinical Notes Mar, Acute diarrhea (ICD-10 - R19.7) advised taking Imodium 1-2x daily and resuming normal rather than a BRAT diet. Will call her on 04/18 and check on her symptoms. Pt agrees she feels well, except when she has to use BR suddenly. She was transferred to [place] in January and she is concerned this is related to a recurrance of that problem. [employer] Other 11-20-2023 Evaluation note* Encounter Date Diagnosis Assessment Notes Treatment Notes Treatment Clinical Notes Jan, Pneumatosis intestinalis (ICD-10 - K63.89) Completely resolved. Reviewed notes from [facility]. Pt is back to a [...] symptoms. Any developing patterns. Stay well hydrated. [employer] Other 10-10-2023 Evaluation note* Encounter Date [...] intermittent and no worse. Continue daily MVI. [employer] Other 05-31-2023 NotePROCEDURE: XR ELBOW LT MIN 3 VIEWS HISTORY: Pain ; acute left elbow pain; no known injury COMPARISON: None. FINDINGS: BONES:No fracture, acute abnormality, or significant arthropathy. SOFT TISSUES:No visible soft tissue swelling. EFFUSION:None visible. OTHER: Negative. IMPRESSION: 1. No acute bone abnormality or significant degenerative joint disease. Electronically authenticated by: JUMANA YBARRA Date: 2022-08-22 09:05[facility]05-31-2023 NotePROCEDURE: XR ANKLE RT MIN 3 [...] Electronically authenticated by: JUMANA YBARRA Date: 2022-08-22 09:01[facility]04-10-2023 Evaluation note* Encounter Date Diagnosis Assessment [...] I10) chronic - stable on present med. [employer] Other 02-24-2023 Evaluation note* Encounter Date Diagnosis Assessment Notes Treatment Notes Treatment Clinical Notes Apr, Paresthesia (ICD-10 - R20.2) [employer] Other 02-17-2023 Evaluation note* Encounter Date [...] stable. continue present meds. Due for labs. [employer] Other 01-12-2023 Evaluation note* Encounter Date [...] tolerated procedure well. Post care instructions given [employer] Other 07-26-2022 Progress note Author Sherwin Yepez [facility] October 17, 2021 8:28am Note Date/Time October 17, 2021 8:28 am [facility] [address] [place] [address] General Surgery Progress Note Signed Patient: Maritza Espino MR#: [id number] 1524 : 1945 Acct:[id number] Age/Sex: 76 / F Adm Date: 2 Loc: 4N Room: [address] [place] [address] Type : REG SDC Attending Dr: Sherwin [...] Mg/0.4 Ml Syringe) 40 mg SUBCUT DAILY@1000 [facility] Stop: 10/17/22 09:59 Famotidine (Famotidine/Pf 20 Mg/2 Ml Vial) 20 mg IV-PUSH Q12HR [facility] Stop: 10/16/22 20:59 Last Admin: 10/16/21 21:53 Dose: 20 mg Hydromorphone HCl (Hydromorphone 0.5 Mg/0.5 Ml Syringe) 1 mg IV-PUSH Q3H PRN PRN Reason: Pain Hydromorphone HCl (Hydromorphone 0.5 Mg/0.5 Ml Syringe) 0.5 mg IV-PUSH Q3H PRN PRN Reason: Pain Last Admin: 10/17/21 06:37 Dose: 0.5 mg Potassium Chloride/Sodium Chloride (0.9 % Nacl-20 Meq Kcl) 1,000 mls @ 80 mls/hr IV .[id number] LEON Stop: 10/16/22 17:07 Last Admin: 10/17/21 [...] % (Auto) 64.8, Lymph % (Auto) 28.9, Weber % (Auto) 5.9, Eos % (Auto) 0.0, Baso % (Auto) 0.4, Neut # (Auto) 12.7 H, Lymph # (Auto) 5.7 H, Weber # (Auto) 1.2 H, Eos # (Auto) [...] signed by DO Sherwin Yepez> 10/17/21 0828 [facility] Work Phone: 1([phone]) 604-224703-10-2021 NoteHNO ID: [id number] Author: Andrei Mario Service: ? Author Type: Physician Type: Progress Notes Filed: 06/01/2020 10:13 AM Note Text: NAME: Maritza Espino CLINIC NO.: [id number] DATE OF SERVICE: June 01, 2020 Some [...] Pattern LSI BETHEL (11q22.3): Normal Pattern LSI [id number] (13q14): Normal Pattern CEP 12: Normal Pattern LSI LAMP1 (13q34): Normal Pattern IGH/CCND1 t(11;14)(q13;q32): Negative INTERPRETATION: There is a normal pattern of hybridization with each of the probes tested. 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 1. 11/21/2016 Peripheral blood Flow Cy: Specimen originated from [facility] Specimen #: [id number] Submitting Physician: FREDERICK PEREZ, II, DO SPECIMEN SUBMITTED A: PERIPHERAL BLOOD [...] area is 1.57 meters (more content not included)...[facility] No data available for this section [facility] Evaluation noteNo assessment information available [facility] Work Phone: Evaluation note* Diagnosis Onset Date Resolution Status Hiatal hernia acute [facility] Work Phone: Evaluation noteNo InformationNort [place] Other Evaluation note* Diagnosis Onset Date Resolution Status CLL (chronic lymphocytic leukemia) acute Hiatal hernia acute [facility] Work Phone: Evaluation note* Diagnosis Onset Date Resolution Status CLL (chronic lymphocytic leukemia) acute Contact dermatitis acute Irregular heart rate acute CLL (chronic lymphocytic leukemia) acute CLL (chronic lymphocytic leukemia) acute Hiatal hernia acute [facility] Work Phone: Evaluation note* Diagnosis Onset Date Resolution Status CLL (chronic lymphocytic leukemia) acute Contact dermatitis acute Irregular heart rate acute CLL (chronic lymphocytic leukemia) acute CLL (chronic lymphocytic leukemia) acute Hiatal hernia acute CLL (chronic lymphocytic leukemia) acute Essential hypertension acute Weight loss acute [facility] Work Phone: Evaluation note* Diagnosis Onset Date Resolution Status Right shoulder pain acute [facility] Work Phone: Evaluation note* Diagnosis Onset Date Resolution Status Admit Date Essential hypertension acute Ma [facility] 2024 1:09pm GERD without esophagitis acute May 26, 2024 1:09pm Irregular heart rate acute George h 2024 1:09pm [facility] Work Phone: Hisubxd general Narrative - Reported* Type Description Date [...] History hernia repair Hospitalization History see above [employer] Other Hisnsmi general Narrative - Reported* Type Description Date [...] thumb Surgical History hernia repair Hospitalization History [facility] 01/24-2 3 [employer] Other Hospital Discharge instructions No data available for this section [facility] Hospital Discharge instructionsAmbulatory Orders* Referral to Gastroenterology Time Frame: 05/26/24, Location: None Selected [facility] Work Phone: Progroqd note No data available for this section [facility] Prokcial note Author Frederick Perez [facility] June 17, 2023 10:54am Note Date/Time June 17, 2023 10: 26am [facility] [place] [address] Cancer Center Note Signed Patient: Maritza Espino MR#: [id number] 1524 : 1945 Acct:[id number] Age/Sex: 78 / F Type: REG AMB [...] well. She followed initially with me at [facility] and then Dr. Beckett at [facility] and now she is following with me [...] follows with Dr. Evaristo Anguiano, lives in [place]. she is on a steroid for a [...] visit for CLL and go over labs [facility] Medical History Medical History Large hiatal [...] Heart disease Mother Heart disease Cancer Legacy Famx Problem: Diagnosed with Cancer Diabetes Sister Hypertension [...] Signed By: <Electronically signed by Frederick Perez II DO> 06/17/23 1054 [facility] Work Phone: Progress note Author Frederick Perez [facility] Note Date/Time June 15, 2024 10: 44[facility] [place] [address] Cancer Center Note Signed Patient: Maritza Espino MR#: [id number] 1524 : 1945 Acct:[id number] Age/Sex: 79 / F Type: REG AMB [...] well. She followed initially with me at [facility] and then Dr. Beckett at [facility] and now she is following with me [...] follows with Dr. Evaristo Anguiano, lives in [place]. she is on a steroid for a [...] No concerns voiced at time of intake. [facility] History Attestation statement: The following information [...] by Frederick Perez II, DO> 06/15/24 1044 [facility] Work Phone: Reason for referral (narrative)* Reason Pt has family i n Josh, [facility], discharge summary scanned in; diarrhea, bowel changes; did not have a colonoscopy in the fall Diagnosis 1 Acute diarrhea (R19. 7) Referral Organization [facility] mar[facility]o Referring Provider First Name Evaristo Referring Provider Last Name Annmarie Referring Provider Specialty Family [facility] Referred Organization [facility] Referred Provider Naty Belle Referred Address [address] [place] [id number] Referred Provider Specialty Gastroentero logy Referral Priority Routine General Notes Silvia Pereira 10:15:03 AM >received today, attachments made, waiting for notes to be locked. [employer] Other Reason for referral (narrative)No reason for referral information availableMarietta Osteopathic Clinic Work Phone: Summary Purpose Family History Relationship [...] Directives No June 12, 2 022 2:22pm Advance Directive Response Recorded Date/ Time [...] Amb Documentation October 26, 2024 10: 35am [facility] ER f/u November 11, 2024 11 :19am Reason for Visit Admit Date Urticaria of unknown origin September 11 9:03am Shingles rash September 15, 2024 2:00 pm CLL (chronic lymphocytic leukemia) October 19, 2024 9:49am Essential hypertension October 19, 2024 9 :49am Family history of diabetes mellitus October 19, 2024 9:49am Medicare annual wellness visit, subseque nt October 19, 2024 9:49am Screening mammogram for breast cancer Ju 2024 9:49am Essential hypertension November 11, 2024 11:19am Chief Complaint Admit Date rash September 11, 2024 9:03 am Rash Spreading September 15, 2024 2:00 pm wellness October 19, 2024 9:49 am Amb Documentation October 26, 2024 10: 35am [facility] ER f/u November 11, 2024 11 :19am ZIO November 27, 2024 8:46am Reason for Visit Admit Date Urticaria of unknown origin September 11 9:03am Shingles rash September 15, 2024 2:00 pm CLL (chronic lymphocytic leukemia) October 19, 2024 9:49am Essential hypertension October 19, 2024 9 :49am Family history of diabetes mellitus October 19, 2024 9:49am Medicare annual wellness visit, subseque nt October 19, 2024 9:49am Screening mammogram for breast cancer Ju ly 2024 9:49am Essential hypertension November 11, 2024 11:19am Syncope November 11, 2024 11 :19am Reason for Referral Reason 06/25/22 [facility], Last OV and labs. Will also scan in labs from last year to send along. Thank you Diagnosis 1 Paresthesia (R20.2) Referral Organization [facility] Mary Lou robertson Referring Provider First Name Evaristo Referring Provider Last Name Annmarie Referring Provider Specialty Family [facility] cine Referred Organization [facility] Referred Provider Sharon Davila Referred Address [address], [place],[address] Referred Provider Specialty Neurology Referral Priority Routine Referral Appointment Date 2022-06-25 General Notes Silvia Pereira 11:05:24 AM >received today, attachments made, form filled out, referral faxed Sergio Pereiraya 05/31/2022 10:06:11 AM >faxed first attempt letter Silvia Pereira 06/05/2022 08:49:35 AM >RECEIVED FAX WITH APPT DATE Additional Source Comments INFORMATION SOURCE (unrecogn ized section and content) DATE CREATED AUTHOR 04/26/2021 [facility] DATE CREATED AUTHOR AUTHOR'S ORGANIZ ATION 08/31/2022 [facility] DATE CREATED AUTHOR AUTHOR'S ORGANIZ ATION 06/12/2024 [facility] DATE CREATED AUTHOR AUTHOR'S ORGANIZ ATION 07/27/2024 [facility] Care Teams (unrecognized sec tion and [...] November 11, 2024 End: November 11, 2024 Team Status: Inactive Member Role Status Dates Evaristo Anguiano MD Primary Care Provider Active Start: November 27, 2024 End: November 27, 2024 Evaristo Anguiano MD Attending Provider Active St art: November 27, 2024 End: November 27, 2024 Goals (unrecognized section and content) Goals [...] nformationtoes/fingers numblabslabs3 month Follow up6 month Follow upmessagerecords.[facility] Issues- Diarrheacontinued diarrheamessage FOR RECORDS PERTAINING TO [...] BE BASED ON THE PRIMARY CLINICAL RECORDS. [facility] avocadostore [facility]. provides no warranty or guarantee of the accuracy or completeness of information in this document.
--- NOTE | 2025-01-11 10:40 | MM_ITS ---
Patient Name: SHAHNAZ ADAMES MR#: [id number] : 1945 Exam Date: 01/11/2025 Ordering Doctor: DR EVARISTO ANGUIANO M.D. RADIOLOGY REPORT PROCEDURE: MM TOMOSYNTHESIS SCREENING BI COMPARISON: MM TOMOSYNTHESIS SCREENING BI, 01/07/2023. MG MAMM SCREEN 3D LUZ CAD, 07/25/2020. MG MAMM SCREEN LUZ W CAD, 03/21/2018. MG MAMM LUZ SCRN W CAD DIG, 11/18/2015. INDICATIONS: Screening Calculator Name NCI Breast Cancer Risk Assessment Tool 5 Year Breast Cancer Risk 3.40% Lifetime Breast Cancer Risk 6.50% Personal Breast Cancer No Personal Ovarian Cancer No Treatments None Family Cancers Mother with breast cancer at age 79. LOCATION: [facility] BREAST COMPOSITION: The breasts are heterogeneously dense, which may obscure small masses. FINDINGS: RIGHT BREAST: No significant suspicious finding. Benign-appearing calcifications are present . there is a similar focal asymmetry of the right. LEFT BREAST: No significant suspicious finding. Benign-appearing calcifications are present. DIAGNOSTIC CATEGORY 2--BENIGN FINDING. NO CHANGE FROM COMPARISON. RECOMMENDATIONS: ROUTINE MAMMOGRAM AND CLINICAL EVALUATION IN 12 MONTHS. Dictated by: Jameson Das MD on 01/11/2025 at 13:10 Approved by: Jameson Das MD on 01/11/2025 at 13:13
== END 2025-01-11 10:02 | disposition home or self-care (01) ==
LOC: MAMMO 10:03
PROVIDERS: PCP Family Medicine; Visit Provider Family Medicine
DX: Z12.31 Encounter for screening mammogram for malignant neoplasm of breast (principal); Z80.3 Family history of malignant neoplasm of breast
CPT/HCPCS: 77063; 77067

== ENCOUNTER 2025-02-09 09:40 | Outpatient (OUT) | payer MEDICARE, OTHER, SELFPAY ==
--- NOTE | 2025-02-09 09:30 | NM_ITS ---
Patient Name: SHAHNAZ ADAMES MR#: [id number] : 1945 Exam Date: 02/09/2025 Ordering Doctor: LINSEY CABZEAS RADIOLOGY REPORT PROCEDURE: NM IRMA PERF SPECT REST STR COMPARISON: None. INDICATIONS: ST ELEVATION TECHNIQUE: Exam Description: Stress/Rest one day protocol gated SPECT Rest Imagin.9 mCi Tc-99m Cardiolite IV on 02/09/2025 Stress Imaging 30.9 mCi Tc-99m Cardiolite IV on 02/09/2025 Exercise Protocol: Nader Heart Rate (bpm): Rest: 82 Max: 125 PMHR: 87 Blood Pressure: Rest: 144/90 Max: 188/86 Exercise Time: Minutes: 3 Seconds: 23 Stage Reached: Stage: 2 Mets 4.6 Symptoms: Rest and peak stress ECG findings were pending, and the exercise portion of the study was pending per attending physician [facility]. For more details, please see separate cardiac stress test report. FINDINGS: QUALITY OF STUDY: Good PERFUSION DEFECT: LOCATION: Basal anterior SIZE: Small SEVERITY: Mild TYPE: Fixed; likely representing breast attenuation WALL MOTION: Normal wall motion LV SIZE: 37 mL. TID / TCD: 0.9 LVEF: Calculated EF 91%. SUMMARY: Myocardial perfusion imaging study is normal CONCLUSION: 1. Myocardial perfusion is normal with soft tissue attenuation 2. Global left ventricular systolic function is normal; EF of 91% is overestimated due to small heart size 3. No significant transient ischemic dilatation Dictated by: Joel Kim M.D. on 02/09/2025 at 15:26 Approved by: Joel Kim M.D. on 02/09/2025 at 15:30
--- OUTSIDE RECORDS SUMMARY | 2025-02-09 09:46 | XMS_ITS | CCD ---
Author Organization [facility] Care Team Providers Care Shoe Planner Name Role Phone MD Evaristo Anguiano Primary Care Provider [phone] DO Sherwin Yepez Attending Provider Evaristo Anguiano Unavailable REQUEST, NONE LISTED Admitting Unavaila ble REQUEST, NONE LISTED Consulting Unavaila ble REQUEST, DR SAUNDERS LISTED Attending Unavailloretta ANGUIANO, DR EVARISTO De Primary Care Unavailable [...] Consulting Unavailable EVARISTO ANGUIANO Primary Care Physician [phone] DO Frederick Perez II Attending Provider [phone] MD Eugenio Beckett Referring Provider Unavailable MD Evaristo Anguiano Primary Care Provider [phone] DO Frederick Perez II Attending Provider [phone] MD Eugenio Beckett Referring Provider Unavailable MD Evaristo Anguiano Primary Care Provider [phone] Papito Tripp Attending Unavailable Papito Tripp Attending Unavailable Evaristo Anguiano MD Primary Care Provider Evaristo Anguiano MD Attending Provider [phone] Jason Mott DO Attending Provider Jade Mott CMA Attending Provider UnavailEvaristo Kumar MD Primary Care Provider [phone] Evaristo Anguiano MD Attending Provider Teresita Fuchs MD Attending Provider LINSEY CABEZAS Attending Unavailable Allergies Allergy ClassificationReported Allergen(s)Allergy TypeDate of OnsetReaction(s) Facility (20 sources)Amoxicillin; Translations: [Amoxicillin]Drug Dnhjicc07-65-0833Ulqz (disorder)[facility] (13 sources)PenicillinDrug AllergyWinthrop Community HospitalStreet Vetz entertainmentAdirondack Medical Center UPR-Online Other (7 sources)PseudoephedrineDrug Kakqbzf58-60-1862JdktqggZipcq Coast UPR-Online Other (11 sources)Penicillins; Translations: [PENICILLINS]Allergy to substance 41-49-7039MgqdpSocvltdovThe [facility] (10 sources)12 Hour DecongestantAllergy to bheohaaqi37-42-2840JzfjqHqrvrzchyThe Bellevue HospitalComment on above:Onset Date: 03/25/2017 (1 source)Pseudoephedrine; Translations: [PSEUDOEPHEDRINE HCL]Drug Allergy 40-19-7671GnepxbkkcfPremier Health Atrium Medical Center Repository (1 source)Ragweed pollen; Translations: [RAGWEED POLLEN]Propensity to adverse reactions to drug (disorder)83-92-0528PcawlkzrboMercy Health West Hospital Repository Medications Current Medications MedicationDrug Class(es)DatesSig (Normalized)Sig (Original)aspirin 81 mg oral capsule (20 sources)Platelet Aggregation Inhibitor, Nonsteroidal Anti-inflammatory Drug Start: 15-28-6903puwc 1 mg by mouth every twenty-four hoursaspirin 81 mg oral capsule mg cap(s), Oral, q24hr, Refills(s) 0, Blood Thinner Start Date: 05/27/23 Status: OrderedStart: 99-28-9416rbkq 1 capsule by mouth once dailyAspirin 81 mg Capsule Active 81 MG PO Daily June 16, 2021 12:00am Complies with drug therapytake 1 tablet by mouth every twenty-four hoursAspirin 81 MG 1 tablet Orally Once a day Activecalcium carbonate 1500 mg oral tablet (3 sources)Start: 09-29-0670kleo 1 mg by mouth once dailycalcium (as carbonate) 600 mg oral tablet mg tab(s), Oral, Daily, Refills(s) 0, Indigestion Start Date: 05/27/23 Status: Orderedcalcium carbonate 1500 mg / cholecalciferol 0.01 mg oral tablet (12 sources)Vitamin DStart: 73-36-4159lyzk 1 tablet by mouth twice dailyCalcium Carbonate-Vitamin D3 (Calcium 600 + D(3)) 600 mg-10 mcg (400 unit) Tablet Active 1 TAB PO Twice daily October 06, 2021 12:00am Complies with drug therapyCentrum Women's (3 sources)Start: 56-83-6097uhsq 1 tablet by mouth once dailyCentrum Women's 1 tab(s), Oral, Daily, Refill(s) 0, Prophylaxis Start Date: 05/27/23 Status: Ordered Start: 95-65-6393[facility] Oral, Daily, Refill(s) 0 Start Date: 05/27/23 Status: Orderedlosartan potassium 50 mg oral tablet (20 sources)Angiotensin 2 Receptor BlockerStart: 05-26-2024 End: 72-03-6973pnfm 1 tablet by mouth once dailyLosartan 50 mg tablet Active 0 .ROUTE .COMPLEX 90 November 16, 2024 8:33am TAKE 1 TABLET BY MOUTHEVERY DAY FOR 90 DAYS Complies with drug therapyStart: 63-20-1980ngeq 1 tablet by mouth once dailyLosartan Active 0 .ROUTE .COMPLEX 90 October 10, 2023 8:50am TAKE 1 TABLET BY MOUTH EVERY DAY FOR 90DAYSStart: 07-15-2023 End: 23-41-0161wtjs 1 tablet by mouth once dailyLosartan 25 mg tablet Discontinued 0 .ROUTE .COMPLEX 90 January 06, 2024 8:21am May 26, 2024 2:34pm TAKE 1 TABLET BY MOUTH EVERY DAY FOR 90 DAYSStart: 06-18-2022 End: 32-77-4518kqtn 1 tablet by mouth once dailyLosartan 25 mg Tablet Discontinued 25 MG PO Daily June 18, 2022 12:00am July 15, 2023 12:59pm methylcellulose 2000 mg powder for oral suspension (3 sources)Start: 02-85-7824kygv 2 g by mouth twice dailyCitrucel 2 g/19 g oral powder 2 gm, Oral, BID, # 507 gm, Refills(s) 3, Pharmacy: [facility]/pharmacy #[id number], 159, cm, 05/27/23 12:05:00 EST, Height/Length Dosing, 50.6, kg, 05/27/23 12:05:00 EST, Weight Dosing Start Date: 05/27/23 Status: Lrendxc25 hr metoprolol succinate 25 mg extended release oral tablet (15 sources)beta-Adrenergic BlockerStart: 11-11-2024 End: 93-99-3797rxxt 1 tablet by mouth once dailyMetoprolol Succinate 25 mg tablet extended release 24 hr Active 25 MG PO Daily 90 0 November 8:32am Complies with drug therapyStart: 06-16-2021 End: 14-01-9040kesv 1 tablet by mouth once dailyMetoprolol Succinate 50 mg tablet extended release 24 hr Discontinued 50 MG PO Daily June 16, 2021 12:00am January 02, 2024 8:33am htnMultivitamin (Multiple Vitamin) Tablet (1 source)Start: 02-30-4289mnfp 1 tablet by mouth once dailyMultivitamin (Multiple Vitamin) Tablet Active 1 TAB PO Daily June 16, 2021 12:00am Multivitamin preparation (18 sources)Start: 31-10-4438fjzf 1 tablet by mouth once dailyMultivitamin Active 1 TAB PO Daily June 16, 2021 12:00amtake 1 tablet by mouth once daily Multivitamin - 1 tablet Orally Once a day ActiveMultivitamin Tablet (6 sources)Start: 07-78-1142xtsu 1 tablet by mouth once dailyStart: 06-16-2021 take 1 tablet by mouth once dailyMultivitamin Tablet Active 1 TAB PO Daily June 16, 2021 12:00am Complies with drug therapyStart: 39-73-9816nbeg 1 tablet by mouth once dailyMultivitamin Tablet Active 1 TAB PO Daily June 16, 2021 12:00amStart: 79-34-0087idoz 1 tablet by mouth once dailyMultivitamin Tablet Active 1 TAB PO Daily June 15, 2021 11:00pmomeprazole 20 mg delayed release oral capsule (20 sources)Proton Pump InhibitorStart: 84-31-6505Zxzcimgemu 20 mg capsule,delayed release(DR/EC) Active 0 .ROUTE .COMPLEX 90 0 January 14, 2025 10:00am TAKE 1 CAPSULE BY MOUTH EVERY DAY 30 MINUTES BEFORE MORNING MEAL Complies with drug therapyStart: 07-18-2023 End: 52-29-3908Kimvwzjxtg 20 mg capsule,delayed release(DR/EC) Discontinued 0 .ROUTE .COMPLEX 90 1 October 0258:05am October 02, 2024 3:17pm TAKE 1 CAPSULE BY MOUTH EVERY DAY 30 MINUTES BEFORE MORNING MEALStart: 07-18-2023 End: 34-35-5161qbpw 1 capsule by mouth once dailyOmeprazole 20 mg capsule,delayed release(DR/EC) Discontinued 20 MG PO Daily July 18, 2023 12:00am July 18, 2023 4:19pmStart: 74-60-9606cpht 1 capsule by mouth once dailyOmeprazole 20 MG 1 capsule 30 minutes before morning meal Orally Once a day for 30 days Jun, ActiveraNITIdine (1 source)Histamine-2 Receptor AntagonistZantac Activesaccharomyces boulardii 250 mg oral capsule (7 sources)Start: 51-43-5582ytcu 1 capsule by mouth once dailySaccharomyces Boulardii (Daily Probiotic (S. Boulardii)) 250 mg capsule Active 250 MG PO Daily January 02, 2024 12:00am Complies with drug therapy Completed/Discontinued Medications MedicationDrug Class(es)DatesSig (Normalized)Sig (Original)acetaminophen 325 mg oral tablet (11 sources)Start: 10-17-2021 End: 96-24-2191kpkf 2 tablets by mouth every four hours as needed for pain Acetaminophen 325 mg Tablet Discontinued 650 MG PO Q4H as needed for pain 0 October 17, 2021 12:00amMarc2022 10:38amStart: 10-17-2021 End: 48-80-5751owgt 650 mg by mouth every four hoursAcetaminophen Discontinued 650 MG PO Q4H October 17, 2021 12:00am June 18, 2022 10:38amCalcium (19 sources)Phosphate Binder, CalciumStart: 06-16-2021 End: 02-23-9807cqgq 1 capsule by mouth once dailyCalcium 600 mg Capsule Discontinued 600 MG PO Daily June 16, 2021 12:00am October 06, 2021 11:03am Start: 06-16-2021 End: 22-44-1772jfyf 1 capsule by mouth once dailyCalcium 600 mg Capsule Discontinued 600 MG PO Daily June 15, 2021 11:00pm October 06, 2021 10:03am Start: 06-16-2021 End: 96-40-2477ryqx 600 mg by mouth once dailyCalcium Discontinued 600 MG PO Daily June 16, 2021 12:00am October 06, 2021 11:03amCalcium + D3 Active Cholestyramine (With Sugar) 4 gram powder in packet (2 sources)Start: 01-02-2024 End: 23-17-5547Diarugmfqobqfj (With Sugar) 4 gram powder in packet Discontinued EACH PO Daily as needed January 02, 2024 12:00am May 26, 2024 2:30pmStart: 01-02-2024 End: 78-64-2703Qctxeissjbxndw (With Sugar) 4 gram powder in packet Discontinued EACH PO Daily as needed January 01, 2024 11:00pm May 26, 2024 1:30pm cholestyramine resin 4000 mg powder for oral suspension (8 sources)Bile Acid SequestrantStart: 01-02-2024 End: 87-72-7024Ogjicvmbnjaipy (With Sugar) 4 gram powder in packet Discontinued EACH PO Daily as needed January 02, 2024 12:00am May 26, 2024 2:30pmStart: 72-17-1263Hcznrqlhaaoqbn (With Sugar) Active EACH PO Daily January 02, 2024 12:00amStart: 21-88-0087Qybvwpki 4 g/9 g oral powder = 1 packet(s), Oral, Daily, PRN Diarrhea, # 30 EA, Refills(s) 4, Pharmacy: [facility]/pharmacy #[id number], 159, cm, 05/27/23 12:05:00 EST, Height/Length Dosing, 50.6, kg, 05/27/23 12:05:00 EST, Weight Dosing Start Date: 05/27/23 Status: Orderedfluticasone propionate 0.05 mg/actuat metered dose nasal spray (12 sources)CorticosteroidStart: 10-06-2021 End: 04-10-2092Zqljgnjfgzv Propionate 50 mcg/actuation spray,suspension Discontinued 2 SPRAY INTRANASAL Daily as needed for Allergy Symptoms October 06, 2021 12:00am June 18, 2022 10:51amhyoscyamine sulfate 0.125 mg oral tablet (8 sources)Start: 05-26-2024 End: 93-67-1182wynq 1 tablet by mouth every four hours as neededHyoscyamine Sulfate 0.125 mg tablet Discontinued 1 TAB PO Every 4 hours May 26, 2024 1:00am 2024 9:20am FreeTextSi tablet as needed Orally every 4 hrs; Note: Source Status: Start; Refills: 0; Provider: Annmarie Au 1 tablet by mouth every four hoursLevsin 0.125 MG 1 tablet as needed Orally every 4 hrs ActivemethylPREDNISolone 4 mg oral tablet (10 sources)CorticosteroidStart: 06-13-2023 End: 13-84-8731Efbxkzpxuvumxxaprf 4 mg tablets,dose pack Discontinued 0 PO per package directions May 12:00am January 02, 2024 7:49am PO PER PKG DIR for 6 daysStart: 06-13-2023 End: 30-64-3487Bcfdjszggsreroncqj Discontinued 0 PO per package directions June 13, 2023 12:00am January 02, 2024 7:49am PO PER PKG DIR for 6 days Start: 22-46-9191Xfnyunyqbweejbhuke Active 0 PO per package directions June 13, 2023 12:00am PO PER PKG DIR for 6 daystriamcinolone acetonide 1 mg/ml topical cream (4 sources)CorticosteroidStart: 09-11-2024 End: 81-33-5497Cfuqgtcjktjng Acetonide 0.1 % cream Discontinued 1 APPLIC TOPICAL Twice daily September 11, 2024 12:00am September 15, 2024 2:40pmvalACYclovir 1000 mg oral tablet (4 sources)Herpesvirus Nucleoside Analog DNA Polymerase Inhibitor, Herpes Simplex Virus Nucleoside Analog DNA Polymerase Inhibitor, Herpes Zoster Virus Nucleoside Analog DNA Polymerase InhibitorStart: 09-15-2024 End: 95-24-4925Mhjeghjqlhbw (Valtrex) 1 gram tablet Discontinued 1000 MG PO Every 8 hours September 15, 2024 12:00am November 11, 2024 11:38am Problems Active Problems Problem ClassificationProblemDateDocumented DateEpisodic/ChronicAbdominal hernia (20 sources)Hiatal hernia; Translations: [Diaphragmatic hernia without obstruction or gangrene]Onset: 894604-30-3500CfgvteiwTelyyoxm reactions (18 sources)Contact dermatitis; Translations: [Unspecified contact dermatitis, unspecified cause]42-33-4930QhnxlzlrJsukawv disorders (20 sources)Anxiety; Translations: [Anxiety disorder, unspecified]Chronic Bacterial infection; unspecified site (13 sources)Bacterial infectious disease; Translations: [Other specified bacterial agents as the cause of diseases classified elsewhere]EpisodicCardiac dysrhythmias (14 sources)Irregular heart beat; Translations: [Cardiac arrhythmia, unspecified]53-94-3629VwfesmvZuobdpnfxu disorders (17 sources)Gastroesophageal reflux disease without esophagitis; Translations: [Gastro-esophageal reflux disease without esophagitis]ChronicEssential hypertension (20 sources)Essential hypertension; Translations: [Essential (primary) hypertension]Onset: 56-45-8782GjdddjzHpharzipe (20 sources)Chronic lymphoid leukemia, disease; 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]Onset: 533501-08-4987UqufwulKolorcmbuy disorders (13 sources)Atrophy of vagina; 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Osteoporosis (13 sources)Postmenopausal osteoporosis; Translations: [Age-related osteoporosis without current pathological fracture]ChronicOther connective tissue disease (1 source)Pain in unspecified limbEpisodicOther gastrointestinal disorders (13 sources)Irritable bowel syndrome with diarrhea; Translations: [Irritable bowel syndrome with diarrhea]ChronicOther gastrointestinal disorders (1 source)Other specified diseases of intestineEpisodicOther gastrointestinal disorders (2 sources)Diarrhea, unspecifiedEpisodicOther gastrointestinal disorders (1 source)Burping; Translations: [Eructation]Onset: 51-14-2085ObdbugceGrjlu gastrointestinal disorders (1 source)Diarrhea; Translations: [Diarrhea, unspecified]Onset: 05-23-2023 EpisodicOther gastrointestinal disorders (2 sources)Altered bowel function; Translations: [Change in bowel habit]Onset: 01-69-6988GztbzxppWckfi nervous system disorders (13 sources)Pain in limb; Translations: [Paresthesia of skin]EpisodicOther nervous system disorders (7 sources)Paresthesia of skin; Translations: [PARESTHESIA OF SKIN]Onset: 76-24-3332AgxlxguyUrikm non-traumatic joint disorders (8 sources)Pain in right shoulder; Translations: [Right shoulder pain]01-02-2024 EpisodicOther nutritional; endocrine; and metabolic disorders (15 sources)Weight loss; Translations: [Abnormal weight loss]76-92-9483Idpkmkgq Other nutritional; endocrine; and metabolic disorders (1 source)Abnormal weight loss; Translations: [Abnormal weight loss]Onset: 16-74-8822SvkuijycWldou nutritional; endocrine; and metabolic disorders (1 source)Abnormal weight loss; Translations: [Loss of weight]55-17-6814Sdzdddqn Other nutritional; endocrine; and metabolic disorders (6 sources)Weight decreased; Translations: [Abnormal weight loss]07-03-2023 EpisodicOther screening for suspected conditions (not mental disorders or infectious disease) (11 sources)Encounter for screening mammogram for malignant neoplasm of breast; Translations: [Patient encounter status]Onset: 36-51-4154OscyclatUmxxe skin disorders (1 source)Other hypertrophic disorders of the skinEpisodicOther upper respiratory infections (13 sources)Bacterial sinusitis; Translations: [Chronic sinusitis, unspecified] ChronicPeripheral and visceral atherosclerosis (13 sources)Intermittent claudication; Translations: [Peripheral vascular disease, unspecified]ChronicResidual codes; unclassified (8 sources)Family history of diabetes mellitus; Translations: [Family history of diabetes mellitus]70-53-6351UwpbsmamHwomhca (7 sources)Syncope; Translations: [Syncope and collapse]Onset: 02-01-2025 77-37-0822KcpkvogjEpfevvzdwqye (1 source)Supraventricular tachycardia, unspecified; Translations: [Supraventricular tachycardia, unspecified]Onset: 22-57-8185Qmnph infection (7 sources)Herpes zoster; Translations: [Zoster without complications]09-16-2024 Episodic Past or Other Problems Problem ClassificationProblemDateDocumented DateEpisodic/ChronicUnclassified (1 source)Supraventricular tachycardia, unspecified; Translations: [Supraventricular tachycardia, unspecified]Onset: 02-01-2025 Results Test NameValueInterpretationReference RangeFacilityOffice Visiton 02-01-2025 Follow-up [id number] Maritza Espino 1945 F Date Provider Department Center 02/01/2025 245-LINSEY CABEZAS CARD [facility] Family History Problem Relation Age of Onset Breast cancer Mother Parkinsonism Sister Diabetes type II Brother Family Status - Relation Status Age at Mother Father Sister Brother Alive Level of Service:95487 CT OFFICE/OUTPATIENT NEW MODERATE MDM 45 MINUTES Reason for Visit and Comments: New Patient [632] - Patient is here today to establish care with cardiology per Dr. Anguiano's request. Patient states she wore a heart monitor which showed fast heart rate. Patient states she was a picnic in Oct 2024 and passed out. Patient was brought to [facility] for evaluation. Patient denies, chest pain, SOB/MARTINEZ, palpitation/racing heart, edema, dizziness/lightheaded. Hypertension [379816] SVT [Other]NormalUnPremier Health Atrium Medical CenterLaboratory - Chemistry and Chemistry - challengeOrdered By: Jason Mott on 02-19-7550Icertfoqe Ql (U) NegativeNEGSelect Medical OhioHealth Rehabilitation HospitalGlucose (U) [Mass/Vol]Negative NEGATIVEMercy Health [facility] Regional Medical CenterKetones Ql (U)TRACE mg/dLAbnormal NEGATIVEMercy Health [facility] Medical CenterpH (U)6.5 [pH]5.0-9.0[facility] Hospitalpecific gravity (U) [Rel density]1.0151.005-1.025[facility] Medical CenterUrobilinogen Qn (U)0.2 {Ingris'U}/dL0.2-1.0[facility] CenterLaboratory - Specimen informationOrdered By: Jason Mott on 14-02-7781Npplqrwshk (U)CLEARCLEARFMercy Health St. Joseph Warren HospitalColor (U) YELLOWYELLOWMercy Health [facility] Regional Medical CenterLaboratory - UrinalysisOrdered By: Jason Mott on 83-38-6107Qjdgtby casts LM Ql (Urine sed)RAREMercy Health [facility] Medical CenterLeukocyte esterase Test strip Ql (U)TRACEAbnormalNEGATIVEMercy Health [facility] Medical CenterMucus Ql (Urine sed)TRACEAbnormalNONE SEENMercy Health [facility] Regional Medical CenterNitrite Ql (U)NegativeNEGATIVEMercy Health [facility] Medical CenterProtein Ql (U)TRACE mg/dLNEG/TRACEMercy Health [facility] Medical CenterNo Panel InformationOrdered By: Jason Mott on 72-32-9939Mhnkm BacteriaTRACE #/HPF AbnormalNONE [facility] HealthUrine Culture ReflexedNO [facility] CenterUrine Occult BloodNegativeNEGATIVEMercy Health Springfield Regional Medical CenterUrine Other CastsSEEN #/LPFAbnormalNONE [facility] HealthUrine Other CrystalsNone Seen #/HPFNone [facility] SystemUrine RBCNONE SEEN #/HPF0-2FMercy Health St. Joseph Warren HospitalUrine Squamous Epithelial CellsRARE #/LPFNONE/RAREMercy Health [facility] Medical CenterUrine WBC2-5 #/HPFAbnormalNONE [facility] HealthAmbulatory Visit Summaryon 70-69-6414Sxstuipqcf Visit SummaryAmbulatory Visit Summary MARITZA ESPINO :1945 Visit Date:06/01/2024 Ambulatory [...] (07/10/2023), Hiatal hernia (03/25/2021), Colonoscopy (03/25/2017), Elbow (03/25/2013),Gallbladder (08/23/1997), Tonsil. Discharge Vitals Heart Rate (Peripheral) [...] you for choosing us for your care. [facility] HospitalComprehensive Metabolic Panelon 39-56-3283Ukpzvax [Mass/Vol]4.4 g/dLNormal3.5-5.7The [facility] Comment on above:Performed By: #### LDH, CMP, DIFF CBC #### [place] [address] USAAlbumin/Globulin [Mass ratio]1.9 {ratio}NormalThe [facility] Physician GroupComment on above:Performed By: #### LDH, CMP, DIFF CBC #### [place] [address] USAALP [Catalytic activity/Vol]84 U/LNzegxt82-045Vxe [facility] Physician GroupComment on above:Performed By: #### LDH, CMP, DIFF CBC #### [place] [address] USAALT [Catalytic activity/Vol]16 U/LNormal7-52The [facility] Physician GroupComment on above:Performed By: #### LDH, CMP, DIFF CBC #### [place] [address] USAAnion gap [Moles/Vol]9.3 mmol/LNormal6.0-15.0The [facility] Physician GroupComment on above:Performed By: #### LDH, CMP, DIFF CBC #### [place] [address] USAAST [Catalytic activity/Vol]20 U/OEarjtw28-97Lbj [facility] Physician GroupComment on above:Performed By: #### LDH, CMP, DIFF CBC #### [place] [address] USABilirubin [Mass/Vol]0.5 mg/dLNormal0.3-1.0The [facility] Physician GroupComment on above:Performed By: #### LDH, CMP, DIFF CBC #### [place] [address] USACalcium [Mass/Vol]10.0 mg/dLNormal8.6-10.3The [facility] Physician GroupComment on above:Performed By: #### LDH, CMP, DIFF CBC #### [place] [address] USAChloride [Moles/Vol]98 mmol/ZCgwjcs32-803Ofk [facility] Physician GroupComment on above:Performed By: #### LDH, CMP, DIFF CBC #### [place] [address] USACO2 [Moles/Vol]33.1 mmol/LHigh21.0-31.0The [facility] Physician GroupComment on above:Performed By: #### LDH, CMP, DIFF CBC #### [place] [address] USACreatinine [Mass/Vol]0.82 mg/dLNormal0.60-1.20The [facility] Physician GroupComment on above:Performed By: #### LDH, CMP, DIFF CBC #### [place] [address] USACreatinine Clr Calc Wpbcfjfx75.26NormalThe [facility] Physician GroupComment on above:Performed By: #### LDH, CMP, DIFF CBC #### [place] [address] USAGFR/1.73 sq M.predicted MDRD (S/P/Bld) [Vol rate/Area] mL/min/{1.73_m2}NormalThe [facility] Physician GroupComment on above:Performed By: #### LDH, CMP, DIFF CBC #### [facility] [address] [place] [address] USAGlobulin (S) [Mass/Vol]2.3 g/dLNormalThe [facility] Physician GroupComment on above:Performed By: #### LDH, CMP, DIFF CBC #### [place] [address] USAGlucose [Mass/Vol]112 mg/eVPqib11-845Bzy [facility] Physician GroupComment on above:Result Comment: Random Glucose Reference Range is dependent on time and content of last meal. Glucose of more than 200 mg/dL in a nonstressed, ambulatory subject supports the diagnosis of Diabetes Mellitus. ADA recommended reference rangePerformed By: #### LDH, CMP, DIFF CBC #### [place] [address] USAPotassium [Moles/Vol]4.4 mmol/LNormal3.5-5.1The [facility] Physician GroupComment on above:Performed By: #### LDH, CMP, DIFF CBC #### [place] [address] USAProtein [Mass/Vol]6.7 g/dLNormal6.4-8.9The [facility] Physician GroupComment on above:Performed By: #### LDH, CMP, DIFF CBC #### [place] [address] USASodium [Moles/Vol]136 mmol/RDqentr606-116Nyr [facility] Physician GroupComment on above:Performed By: #### LDH, CMP, DIFF CBC #### [place] [address] USAUrea nitrogen [Mass/Vol]14 mg/dLNormal7-25The [facility] Physician GroupComment on above:Performed By: #### LDH, CMP, DIFF CBC #### [place] [address] USADiff and CBCon 93-93-5693Ebjizjhjzfbn Ql (Bld)Moderate NormalThe [facility] Physician GroupComment on above:Performed By: #### LDH, CMP, DIFF CBC #### [place] [address] USABasophils/100 WBC (Bld)1 %Normal0-2The [facility] Physician GroupComment on above:Performed By: #### LDH, CMP, DIFF CBC #### [place] [address] USAErythrocyte distribution width (RBC) [Ratio]13.3 %Normal 11.9-15.3The [facility] Physician GroupComment on above:Performed By: #### LDH, CMP, DIFF CBC #### [place] [address] USAGiant Platelet Tally1 /100{WBC}NormalThe [facility] Physician GroupComment on above:Performed By: #### LDH, CMP, DIFF CBC #### [place] [address] USAHematocrit (Bld) [Volume fraction]45.4 %Ilfrvg14.0-46.4The [facility] Physician GroupComment on above:Performed By: #### LDH, CMP, DIFF CBC #### [place] [address] USAHemoglobin (Bld) [Mass/Vol]15.3 g/oOJkxxre39.8-15.4The [facility] Physician GroupComment on above:Performed By: #### LDH, CMP, DIFF CBC #### [place] [address] USALarge PlateletsSlightNormalThe [facility] Comment on above:Result Comment: PERFORMED BY: [place] [address] PATHOLOGIST TAR HEEL CRISTHIAN BHATIA M.D.Performed By: #### LDH, CMP, DIFF CBC #### [place] [address] USALymphocytes/100 WBC (Bld)64 %Srld36-68Jtd [facility] Physician GroupComment on above:Performed By: #### LDH, CMP, DIFF CBC #### [place] [address] USAMCH (RBC) [Entitic mass]30.1 vpDumalj41.7-34.3The [facility] Physician GroupComment on above:Performed By: #### LDH, CMP, DIFF CBC #### [facility] [address] [place] [address] USAMCV (RBC) [Entitic vol]89.7 vHMydvpz26-429Rnj [facility] Physician GroupComment on above:Performed By: #### LDH, CMP, DIFF CBC #### [place] [address] USAMean Corpuscular HGB Conc33.6 g/vFQatbwh18.0-35.0The [facility] Physician GroupComment on above:Performed By: #### LDH, CMP, DIFF CBC #### [place] [address] USAMicrocytosisModerateNoFormerly [facility] Comment on above:Performed By: #### LDH, CMP, DIFF CBC #### [place] [address] USAMonocytes/100 WBC (Bld)1 %Low2-11The [facility] Physician GroupComment on above:Performed By: #### LDH, CMP, DIFF CBC #### [place] [address] USAOvalocytesSlightNoFormerly [facility] Physician GroupComment on above:Performed By: #### LDH, CMP, DIFF CBC #### [place] [address] USAPlatelet EstimateNormalNormalAdventHealth Altamonte Springs Physician GroupComment on above:Performed By: #### LDH, CMP, DIFF CBC #### [place] [address] USAPlatelet mean volume (Bld) [Entitic vol]9.9 fLNormal 6.3-10.7The [facility] Physician GroupComment on above:Performed By: #### LDH, CMP, DIFF CBC #### [place] [address] USAPlatelet MorphologyNormalNormalNoFormerly [facility] Physician GroupComment on above:Performed By: #### LDH, CMP, DIFF CBC #### [facility] [address] [place] [address] USAPlatelets (Bld) [#/Vol]264 10*3/eTUrndcr471-503Aqh [facility] Physician GroupComment on above:Performed By: #### LDH, CMP, DIFF CBC #### [facility] [address] [place] [address] USAPoikilocytosisSlightNormalThe [facility]ician [facility] Comment on above:Performed By: #### LDH, CMP, DIFF CBC #### [place] [address] USARBC (Bld) [#/Vol]5.06 10*6/uLHigh3.60-5.00The [facility]ician [facility] CenterComment on above:Performed By: #### LDH, CMP, DIFF CBC #### [place] [address] USAReactive Lymphocytes2 %Normal0-12The [facility] Physician GroupComment on above:Performed By: #### LDH, CMP, DIFF CBC #### [place] [address] USASegmented neutrophils/100 WBC (Bld)32 %Rcq38-88Txd [facility]ician [facility] CenterComment on above:Performed By: #### LDH, CMP, DIFF CBC #### [place] [address] USAWBC (Bld) [#/Vol]19.0 10*3/uLHigh3.8-11.6The [facility] Physician GroupComment on above:Performed By: #### LDH, CMP, DIFF CBC #### [place] [address] USALDH Lactate Dehydrogenaseon 58-13-3866GUN Lactate Nvcvwzwwjqmcg629 U/QXrpfyn334-611Dga [facility] Physician [facility] CenterComment on above: Result Comment: PERFORMED BY: [place] [address] PATHOLOGIST TAR HEEL CRISTHIAN BHATIA M.D.Performed By: #### LDH, CMP, DIFF CBC #### [facility] [address] [place] [address] USAGastroenterology Office/Clinic Noteon 06-01-2024 Gastroenterology Office/Clinic NoteGastroenterology Office/Clinic Note Chief Complaint GERD HPI Staff [...] Diarrhea, # 30 EA, Refills(s) 4, [id number], cm, 05/27/23 12:05:00 EST, Height/Length Dosing, 50.6, kg, 05/27/23 12:05:00 EST, Weight Dosing methylcellulose, 2 gm, Oral, BID, # 507 gm, Refills(s) 3, Pharmacy: [facility]/pharmacy #[id number], 159, cm, 05/27/23 12:05:00 EST, Height/Length Dosing, 50.6, kg, 05/27/23 12:05:00 EST, Weight Dosing Continue omeprazole 40 mg daily Patient stopped Questran. Continue to monitor Patient not interested in repeating colonoscopy Continue probiotics from zpqu-hzi-hzfhpgo (align) Follow-up as needed Follow-up No qualifying data available Problem List/Past Medical History Ongoing Altered bowel habits Bloating Chronic GERD Historical No qualifying data Procedure/Surgical History Colonoscopy (07/10/2023), Hiatal hernia (03/25/2021), Colonoscopy (03/25/2017), Elbow (03/25/2013),Gallbladder (08/23/1997), Tonsil. Medications Acidophilus Probiotic Blend, Oral, [...] virus vaccine, inactivated 12/25/2022 Recorded SARS-CoV-2 (COVID-19) mRNAMUL.ORD![id number] 02/13/2022 Recorded influenza virus vaccine, inactivated 12/13/2021 [...] 01/21/2017 Recorded influenza virus vaccine, inactivated 01/21/2017 RecordedGlenbeigh HospitalComment on above:Result Comment: Electronically Signed By: Qasim PORTER, Papito Jo\.br\Date and Time Signed: 06/01/2512:22 EDTGastroenterology Office/Clinic Noteon 35-62-9550Aqsywikuarywfibo Office/Clinic NoteChief Complaint follow up colon HPI Staff Patient [...] Diarrhea, # 30 EA, Refills(s) 4, Pharmacy: [facility]/pharmacy #[id number], 159, cm, 05/27/23 12:05:00 EST, Height/Length Dosing, 50.6, kg, 05/27/23 12:05:00 EST, Weight Dosing methylcellulose, 2 gm, Oral, BID, # 507 gm, Refills(s) 3, Pharmacy: [facility]/pharmacy #[id number], 159, cm, 05/27/23 12:05:00 EST, [...] (07/10/2023), Hiatal hernia (03/25/2021), Colonoscopy (03/25/2017), Elbow (03/25/2013),Gallbladder (08/23/1997), Tonsil. Medications aspirin 81 mg oral [...] virus vaccine, inactivated 12/25/2022 Recorded SARS-CoV-2 (COVID-19) mRNAMUL.ORD![id number] 02/13/2022 Recorded influenza virus vaccine, inactivated 12/13/2021 [...] 01/21/2017 Recorded influenza virus vaccine, inactivated 01/21/2017 RecordedGlenbeigh HospitalComment on above:Result Comment: Electronically Signed By: Qasim PORTER, Papito Jo\.br\Date and Time Signed: 08/13/2412:41 EDTGiardia lamblia Ag [Presence] in Stool by Immunoassayon 06-28-2023G. lamblia Ag IA Ql (Stl)Negative NegativeMercy Health Springfield Regional Medical CenterComment on above:Performed at: [facility] [id number] Director: Quique Yee PhD, Phone: [phone] Panel Informationon 57-59-4402Wspjmxowsut difficile (PCR)(LAB)NegativeNEGATIVEMercy Health Springfield Regional Medical CenterRotavirus Antigen (LAB)NegativeNegativeMercy Health Springfield Regional Medical CenterComment on above: Performed at: - [facility] [id number] Director: Quique Yee PhD, Phone: [phone] aminotransferase [Enzymatic activity/volume] in Serum or PlasmaOrdered By: Nida Crain on 54-41-8801WVD [Catalytic activity/Vol]14 U/L7-52[facility] Medical CenterAlbumin [Mass/volume] in Serum or Plasma by Bromocresol green (BCG) dye binding methoOrdered By: Nida Crain on 85-08-3121Icucaii BCG dye [Mass/Vol]4.3 g/dL3.5-5.7FMercy Health St. Joseph Warren HospitalAlkaline phosphatase [Enzymatic activity/volume] in Serum or PlasmaOrdered By: Nida Crain on 46-61-9923NAG [Catalytic activity/Vol]71 U/G18-501SmlgyuszkMercy Health Springfield Regional Medical CenterAnisocytosis LM Ql (Bld)Ordered By: Nida Crain on 06-12-2023 Anisocytosis Ql (Bld)SlightMercy Health Springfield Regional Medical CenterAspartate aminotransferase [Enzymatic activity/volume] in Serum or PlasmaOrdered By: Nida Crain on 97-22-8400HWP [Catalytic activity/Vol]20 U/L13-39 [facility] Medical CenterBasophils Auto (Bld) [#/Vol]Ordered By: Nida Crain on 15-73-7522Loerbrdro (Bld) [#/Vol]N/AFMercy Health St. Joseph Warren HospitalBasophils/100 WBC Auto (Bld)Ordered By: Nida Crain on 06-12-2023 Basophils/100 WBC (Bld)N/[facility] HospitalBilirubin.total [Mass/volume] in Serum or PlasmaOrdered By: Nida Crain on 06-12-2023 Bilirubin [Mass/Vol]0.4 mg/dL0.3-1.0[facility] Medical CenterCalcium [Mass/volume] in Serum or PlasmaOrdered By: Nida Crain on 06-12-2023 Calcium [Mass/Vol]9.5 mg/dL8.6-10.3FMercy Health St. Joseph Warren HospitalCarbon dioxide, total [Moles/volume] in Serum or PlasmaOrdered By: Nida Crain on 74-98-3098YO6 [Moles/Vol]28.3 mmol/L21.0-31.0[facility] Medical CenterChloride [Moles/volume] in Serum or PlasmaOrdered By: Nida Crain on 10-43-1711Lzdavayn [Moles/Vol]101 mmol/Z63-709MlcsjwhbzMercy Health Springfield Regional Medical CenterCreatinine [Mass/volume] in Serum or PlasmaOrdered By: Nida Crain on 89-11-2888Oismcdvcen [Mass/Vol]0.87 mg/dL0.60-1.20[facility] Medical CenterEosinophils Auto (Bld) [#/Vol]Ordered By: Nida Crain on 48-52-6329Teaoltihsgi (Bld) [#/Vol]N/[facility] Eosinophils/100 WBC Auto (Bld)Ordered By: Nida Crain on 06-12-2023 Eosinophils/100 WBC (Bld)N/[facility] HospitalEosinophils/100 WBC Manual cnt (Bld)Ordered By: Nida Crain on 30-92-5874Reyliuqhszx/100 WBC (Bld)1 %1-3FMercy Health St. Joseph Warren HospitalErythrocyte distribution width Auto (RBC) [Ratio]Ordered By: Nida Crain on 86-51-5851Xnrohrepmbz distribution width (RBC) [Ratio]13.2 %11.9-15.3FMercy Health St. Joseph Warren Hospital Giant platelets/100 leukocytes [Ratio] in Blood by Manual countOrdered By: Nida Crain on 03-17-6010Iocme platelets/100 WBC Manual cnt (Bld) [Ratio]1 /100{WBC}[facility] Medical CenterGlobulin Calc (S) [Mass/Vol] Ordered By: Nida Crain on 62-96-4039Itoboihi (S) [Mass/Vol]1.9 g/dL [facility] Medical CenterGlucose [Mass/volume] in Serum or PlasmaOrdered By: Nida Crain on 74-26-4505Uvnpjim [Mass/Vol]122 mg/hH01-054PuadvowxaMercy Health Springfield Regional Medical CenterComment on above:ADA recommended reference rangeRandom Glucose Reference Range is dependent on time and content of last meal. Glucose of more than 200 mg/dL in a nonstressed, ambulatory subject supports the diagnosisof Diabetes Mellitus.Hematocrit Auto (Bld) [Volume fraction]Ordered By: Nida Crain on 49-73-0977Wcbczksfpo (Bld) [Volume fraction]43.6 % 34.0-46.4FMercy Health St. Joseph Warren HospitalHemoglobin [Mass/volume] in Blood Ordered By: Nida Crain on 78-21-8894Krenvdiwrl (Bld) [Mass/Vol]14.2 g/dL11.8-15.4FMercy Health St. Joseph Warren HospitalLactate dehydrogenase [Enzymatic activity/volume] in Serum or Plasma by Lactate to pyOrdered By: Nida Crain on 47-46-6496ELI Lactate to pyruvate reaction [Catalytic activity/Vol]144 U/F617-848PzgjtirbbMercy Health Springfield Regional Medical CenterLeukocytes [#/volume] corrected for nucleated erythrocytes in Blood by Automated coun Ordered By: Nida Crain on 45-17-2365WYM corrected for nucl RBC Auto (Bld) [#/Vol]16.8 10*3/uL3.8-11.6FMercy Health St. Joseph Warren HospitalLymphocytes Auto (Bld) [#/Vol]Ordered By: Nida Crain on 60-79-6162Pipoccwidqx (Bld) [#/Vol]N/AFMercy Health St. Joseph Warren HospitalLymphocytes/100 WBC Auto (Bld) Ordered By: Nida Crain on 82-32-4800Khwmcmhfopb/100 WBC (Bld)N/A [facility] Medical CenterLymphocytes/100 WBC Manual cnt (Bld)Ordered By: Nida Crain on 34-52-9194Amlivyxhcki/100 WBC (Bld)78 %18-42Mer[facility] Medical CenterMCH Auto (RBC) [Entitic mass]Ordered By: Nida Crain on 85-12-4152ICD (RBC) [Entitic mass]29.7 pg24.7-34.3FMercy Health St. Joseph Warren HospitalMCHC Auto (RBC) [Mass/Vol]Ordered By: Nida Crain on 22-03-8429TDKM (RBC) [Mass/Vol]32.6 g/dL32.0-35.0[facility] Medical CenterMCV Auto (RBC) [Entitic vol]Ordered By: Nida Crain on 06-12-2023 MCV (RBC) [Entitic vol]91.0 mE64-909AfqyfnonlMercy Health Springfield Regional Medical CenterMicrocytes LM Ql (Bld)Ordered By: Nida Crain on 79-22-1953Sfcrwbijws Ql (Bld) SlightMercy Health Springfield Regional Medical CenterMonocytes Auto (Bld) [#/Vol]Ordered By: Nida Crain on 57-26-6946Wyhoztxar (Bld) [#/Vol]N/[facility] HospitalMonocytes/100 WBC Auto (Bld)Ordered By: Nida Crain on 02-98-7668Oqpbxkvlj/100 WBC (Bld)N/[facility] Monocytes/100 WBC Manual cnt (Bld)Ordered By: Nida Crain on 06-12-2023 Monocytes/100 WBC (Bld)1 %2-11[facility] Medical CenterNeutrophils Auto (Bld) [#/Vol]Ordered By: Nida Crain on 12-09-9920Jlsmjrhgwfe (Bld) [#/Vol]N/[facility] HospitalNeutrophils/100 WBC Auto (Bld)Ordered By: Nida Crain on 42-89-3593Awvqsaswfna/100 WBC (Bld)N/[facility] HospitalNo Panel InformationOrdered By: Nida Crain on 97-20-2829Beoalglyd GFR (CKD-EPI)> 60.0 mL/MinMercy Health Springfield Regional Medical Center Pharmacy Creatinine Clearance (Chem43.51[facility] Nucleated erythrocytes [Presence] in Blood by Automated countOrdered By: Nida Crain on 67-68-4428Stfmvfhvd RBC Auto Ql (Bld)N/AFMercy Health St. Joseph Warren HospitalPlatelet adequacy [Presence] in Blood by Light microscopyOrdered By: Nida Crain on 24-69-8124Vdzkgfuus LM Ql (Bld)NormalNormSumma Health Wadsworth - Rittman Medical CenterPlatelet mean volume Auto (Bld) [Entitic vol]Ordered By: Nida Crain on 76-64-3094Ifxhjhly mean volume (Bld) [Entitic vol]9.5 fL 6.3-10.7FMercy Health St. Joseph Warren HospitalPlatelet morphology finding [Identifier] in BloodOrdered By: Nida Crain on 25-74-2951Xgxjtiik morphology finding Nom (Bld)NormalNoHighland District Hospital Platelets Auto (Bld) [#/Vol]Ordered By: Nida Crain on 06-12-2023 Platelets (Bld) [#/Vol]270 10*3/iC405-045MdphioaonMercy Health Springfield Regional Medical Center Potassium [Moles/volume] in Serum or PlasmaOrdered By: Nida Crain on 47-15-8023Jjhdjrkcr [Moles/Vol]4.4 mmol/L3.5-5.1FMercy Health St. Joseph Warren HospitalProtein [Mass/volume] in Serum or PlasmaOrdered By: Nida Crain on 98-97-9165Bthmmrh [Mass/Vol]6.2 g/dL6.4-8.9[facility] Medical CenterRBC Auto (Bld) [#/Vol]Ordered By: Nida Crain on 34-91-5029UAK (Bld) [#/Vol]4.79 10*6/uL3.60-5.00[facility] CenterRB morphology Ordered By: Nida Crain on 82-36-0991RER morphology finding Nom (Bld) NormalNormTrumbull Regional Medical Centeregmented neutrophils/100 WBC Manual cnt (Bld)Ordered By: Nida Crain on 93-94-1678Sazozdutu neutrophils/100 WBC (Bld)19 %50-70[facility] Hospitalerum or plasma albumin/globulin mass ratioOrdered By: Nida Crain on 06-12-2023 Albumin/Globulin [Mass ratio]2.3 {ratio}[facility] Hospitalerum or plasma anion gap determinationOrdered By: Nida Crain on 06-12-2023 Anion gap [Moles/Vol]14.1 mmol/L6.0-15.0[facility] Hospitalodium [Moles/volume] in Serum or PlasmaOrdered By: Nida Crain on 06-12-2023 Sodium [Moles/Vol]139 mmol/T401-546PqihpbfkcMercy Health Springfield Regional Medical CenterUrea nitrogen [Mass/volume] in Serum or PlasmaOrdered By: Nida Crain on 10-08-5138Wofz nitrogen [Mass/Vol]20 mg/dL7-25[facility] Variant lymphocytes/100 WBC Manual cnt (Bld)Ordered By: Nida Crain on 78-21-3986Ssbzdgl lymphocytes/100 WBC (Bld)1 %0-12[facility] Medical CenterWBC Auto (Bld) [#/Vol]Ordered By: Nida Crain on 20-52-3970MVF (Bld) [#/Vol]16.8 10*3/uL3.8-11.6FMercy Health St. Joseph Warren HospitalIMMUNOFIXATION ELEC, PROTEIN ELECon 08-16-0481Sbpktri [Mass/Vol]3.7 g/dLNormal2.9-4.4The [facility] HospitalComment on above:Performed By: #### VITB12 #### [facility] [address] [address] [address] Mary HerzogAlbumin/Globulin [Mass ratio]1.5 {ratio}Normal0.7-1.7The [facility] HospitalComment on above:Performed By: #### VITB12 #### [facility] [address] [address] [address] Mary HerzogNcbrbXrknk-1-Qxltntsu4.3 g/dLNormal0.0-0.4The Irene HospitalComment on above:Performed By: #### VITB12 #### [facility] [address] [place] [address] Dr. Mary HerzogKcsbkFncqt-4-Whudfcbx3.8 g/dLNormal0.4-1.0The [facility] HospitalComment on above:Performed By: #### VITB12 #### [facility] [address] [place] [address] Dr. Mary HerzogBeta Globulin0.9 g/dLNormal0.7-1.3The [facility] HospitalComment on above:Performed By: #### VITB12 #### [facility] [address] [place] [address] Dr. Mary HerzogGamma Globulin0.6 g/dLNormal0.4-1.8The [facility] HospitalComment on above:Performed By: #### VITB12 #### [facility] [address] [place] [address] Dr. Mary HerzogGlobulin (S) [Mass/Vol]2.6 g/dLNormal2.2-3.9[facility] Comment on above:Performed By: #### VITB12 #### [facility] [address] [place] [address] Dr. Mary HerzogImmunofixation Result, SerumKettering Health Washington Township Comment on above:Result Comment: No monoclonality detected.Performed By: #### VITB12 #### [facility] [address] [place] [address] Dr. Mary HerzogImmunoglobulin A, Qn, Xoghr013 mg/qWTqbdgc68-561Dtr [facility] HospitalComment on above:Performed By: #### VITB12 #### [facility] [address] [place] [address] Dr. Mary HerzogImmunoglobulin G, Qn, Mimtu370 mg/nOVgkosn476-3411Tft [facility] HospitalComment on above:Performed By: #### VITB12 #### [facility] [address] [place] [address] Dr. Mary HerzogImmunoglobulin M, Qn, Mtimx019 mg/oNErzaic56-181Hdh [facility] HospitalComment on above:Performed By: #### VITB12 #### [facility] [address] [place] [address] Dr. Mary HerzogM-SpikeNot ObservedNormalNot ObservedBlanchard Valley Health SystemComment on above:Performed By: #### VITB12 #### [facility] [address] [place] [address] Dr. Mary HerzogPDF.NormalThe [facility] HospitalComment on above:Performed By: #### VITB12 #### [facility] [address] [place] [address] Dr. Mary HerzogPlease note:CommentNormalThe [facility] on above: Result Comment: Protein electrophoresis scan will follow via computer, mail, or brake repairer delivery.Performed By: #### VITB12 #### [facility] [address] [place] [address] Dr. Mary HerzogProtein [Mass/Vol]6.3 g/dLNormal6.0-8.5The [facility] Comment on above:Performed By: #### VITB12 #### [facility] [address] [place] [address] Dr. Mary HerzogVITAMIN B6on 93-88-8416Qeooyzv B629.2 ug/LNormal3.4-65.2[facility] Hospitalment on above:Result Comment: Deficiency: <3.4 Marginal: 3.4 - 5.1 Adequate: >5.1Performed By: #### VITAB6 #### [facility] [address] [place] [address] Dr. Mary HerzogCOPPER, SERUM or PLASMAon 57-89-9307Nfahgc, Ogtyy971 ug/dLNormal 80-158The [facility] on above:Result Comment: Detection Limit = 5 Performed By: #### VITB12 #### [facility] [address] [place] [address] Dr. Mary HerzogANA COMPREHENSIVE PROFILEon 56-03-9608Uobi-Centromere B Antibodies<0.8Lmrubd2.0-0.9[facility] SystemComment on above:Performed By: #### VITB12 #### [facility] [address] [place] [address] Dr. Mary Matthews-DNA (DS) Ab Qn1 IU/mLNormal0-9[facility] on above:Result Comment: Negative <5 Equivocal 5 - 9 Positive >9Performed By: #### VITB12 #### [facility] [address] [place] [address] Dr. Mary AminJo-1<0.6Cscjcz3.0-0.9[facility] SystemComment on above: Performed By: #### VITB12 #### [facility] [address] [place] [address] Dr. Mary Hatchhromatin Antibodies<0.5Jxlmwi0.0-0.9[facility] Comment on above:Performed By: #### VITB12 #### [facility] [address] [place] [address] Dr. Mary MatthewsRIBOSOMAL P AB<0.0Qwtyhe4.0-0.9The [facility] HospitalComment on above:Performed By: #### VITB12 #### [facility] [address] [place] [address] Dr. Mary Cordonoderma-70 Antibodies<0.4Lusmis1.0-0.9[facility] SystemComment on above:Performed By: #### VITB12 #### [facility] [address] [place] [address] Dr. Mary AmaralOhioHealthComment on above:Result Comment: Autoantibody Disease Association Condition Frequency Antinuclear Antibody, SLE, mixed connective Direct (MO-D) tissue diseases dsDNA SLE 40 - 60% Chromatin Drug induced SLE 90% SLE 48 - 97% SSA (Ro) SLE 25 - 35% Sjogren's Syndrome 40 - 70% Lupus 100% SSB (La) SLE 10% Sjogren's Syndrome 30% Sm (anti-Carlson) SLE 15 - 30% CLUB WAITER/WAITRESS Mixed Connective Tissue Disease 95% (U1 nRNP, SLE 30 - 50% anti-ribonucleoprotein) Polymyositis and/or Dermatomyositis 20% Scl-70 (antiDNA Scleroderma (diffuse) 20 - 35% topoisomerase) Crest 13% Mary-1 Polymyositis and/or Dermatomyositis 20 - 40% Centromere B Scleroderma - Crest variant 80% Ribosomal P SLE 10 - 20%Performed By: #### VITB12 #### [facility] [address] [place] [address] Dr. Mary Ramirez Antibodies0.2 AINormal0.0-0.9[facility] SystemComment on above:Performed By: #### VITB12 #### [facility] [address] [place] [address] Dr. Mary Terrell Anti-SS-A<0.6Pehdud1.0-0.9The [facility] HospitalComment on above:Performed By: #### VITB12 #### [facility] [address] [place] [address] Dr. Mary Terrell Anti-SS-B<0.3Hdgihx4.0-0.9The [facility] HospitalComment on above:Performed By: #### VITB12 #### [facility] [address] [place] [address] Dr. Mary Falk Antibodies<0.8Pbpzwl4.0-0.9The [facility] HospitalComment on above:Performed By: #### VITB12 #### [facility] [address] [place] [address] Dr. Mary Falk/CLUB WAITER/WAITRESS Antibodies<0.0Qjjbwl2.0-0.9The [facility] HospitalComment on above:Performed By: #### VITB12 #### [facility] [address] [place] [address] Dr. Mary Levin W MANUAL DIFFon 63-90-5510PKXFLCEC LYMPH #NormalThe [facility] City HospitalComment on above:Performed By: #### RENETTA #### [facility] [address] [place] [address] Dr. Mary ElYPICAL LYMPH %NormalThe [facility] HospitalComment on above: Performed By: #### RENETTA #### [facility] [address] [place] [address] Dr. Mary Jose #Normal0.0-0.3The [facility] HospitalComment on above: Performed By: #### RENETTA #### [facility] [address] [place] [address] Dr. Mary Jose %Normal0-5The [facility] HospitalComment on above:Performed By: #### RENETTA #### [facility] [address] [place] [address] Dr. Mary Rodriguez #0.00 103/ulNormal0.00-0.10The [facility] HospitalComment on above:Performed By: #### RENETTA #### [facility] [address] [place] [address] Dr. Mary Rodriguez %0.0 %Critically low0.2-2.0The [facility] HospitalComment on above:Performed By: #### RENETTA #### [facility] [address] [place] [address] Dr. Mary Ramirez #NormalThe [facility] HospitalComment on above:Performed By: #### RENETTA #### [facility] [address] [place] [address] Dr. Mary Ramirez %NormalMercy Health St. Charles Hospital HospitalComment on above:Performed By: #### RENETTA #### [facility] [address] [place], [place] [id number] Dr. Mary TejedaRRECTED WBCNormal4.0-11.0The [facility] HospitalComment on above: Performed By: #### RENETTA #### [facility] [address] [place] [address] Dr. Mary Gutiérrez #0.49 103/ulNormal0.00-0.70The [facility] HospitalComment on above:Performed By: #### RENETTA #### [facility] [address] [place] [address] Dr. Mary Gutiérrez%3.0 %Normal0.9-7.0The [facility] HospitalComment on above: Performed By: #### RENETTA #### [facility] [address] [place] [address] Dr. Mary HerreraT45.1 %Nrqnff05.0-48.0The [facility] HospitalComment on above: Performed By: #### RENETTA #### [facility] [address] [place] [address] Dr. Mary HerzogHGB14.5 g/rjJpdkdj84.0-16.0The [facility] HospitalComment on above: Performed By: #### RENETTA #### [facility] [address] [place] [address] Dr. Mary Deshpande #10.89 103/ulCritically high1.20-3.80The [facility] Comment on above:Performed By: #### RENETTA #### [facility] [address] [place] [address] Dr. Mary Deshpande%66.0 %Critically high20.5-60.0The [facility] HospitalComment on above:Performed By: #### RENETTA #### [facility] [address] [place] [address] Dr. Mary HarveyH29.1 swWwahti13.7-34.0The [facility] HospitalComment on above: Performed By: #### RENETTA #### [facility] [address] [place] [address] Dr. Mary HarveyHC32.2 g/kpBllraj19.9-35.2The [facility] HospitalComment on above:Performed By: #### RENETTA #### [facility] [address] [place] [address] Dr. Mary HarveyV90.4 lLYdpstv59.0-99.0The [facility] Centerment on above: Performed By: #### RENETTA #### [facility] [address] [place] [address] Dr. Mary GuerraOCYTE #NormalThe [facility] HospitalComment on above: Performed By: #### RENETTA #### [facility] [address] [place] [address] Dr. Mary GuerraOCYTE %NormalThe [facility] HospitalComment on above: Performed By: #### RENETTA #### [facility] [address] [place] [address] Dr. Mary Peterson#0.82 103/ulCritically high0.30-0.80The [facility] on above:Performed By: #### RENETTA #### [facility] [address] [place] [address] Dr. Mary Peterson%5.0 %Normal1.7-12.0The [facility] on above: Performed By: #### RENETTA #### [facility] [address] [place] [address] Dr. Mary HerzogMPV10.6 fLNormal9.5-13.5The [facility] HospitalComment on above: Performed By: #### CBCCORY #### [facility] [address] [place] [address] Dr. Mary Preston #NormalBlanchard Valley Health SystemComment on above:Performed By: #### RENETTA #### [facility] [address] [place] [address] Dr. Mary Preston %NormalThe [facility] HospitalComment on above:Performed By: #### RENETTA #### [facility] [address] [place] [address] Dr. Mary WeinbergNormalThe [facility] on above:Performed By: #### CBCCORY #### [facility] [address] [address] [address] Mary HerzogPLT277 103/xfQimwjq438-451Def [facility] on above: Performed By: #### RENETTA #### [facility] [address] [address] [address] Mary HerzogRBC4.99 106/ulNormal4.20-5.40The [facility] on above:Performed By: #### RENETTA #### [facility] [address] [address] [address] Mary HerzogRDW12.9 %Dlpxzn47.0-15.0The [facility] on above: Performed By: #### RENETTA #### [facility] [address] [place] [address] Dr. Mary Ragsdale #4.29 103/ulNormal1.40-6.50The [facility] on above:Performed By: #### RENETTA #### [facility] [address] [place] [address] Dr. Mary Ragsdale %26.0 %Critically low43.0-75.0The [facility] on above:Performed By: #### RENETTA #### [facility] [address] [address] [address] Mary EastonBC16.5 103/ulCritically high4.0-11.0The [facility] on above:Performed By: #### RENETTA #### [facility] [address] [place] [address] Dr. Mary HerzogGLYCOHEMOGLOBIN A1Con [id number] RECOMMENDATIONSEE BELOWNormal [facility] on above:Result Comment: ADA RECOMMENDED LIMIT 4.0 - 6.0 ADA THERAPEUTIC TARGET < 7.0 ACTION SUGGESTED > 7.0Performed By: #### DATA1C #### [facility] [address] [place] [address] Dr. Mary HerzogGlucose [Mass/Vol]117 mg/dLNormalThe [facility] HospitalComment on above:Performed By: #### DATA1C #### [facility] [address] [place] [address] Dr. Mary HerzogHbA1c (Bld) [Mass fraction]5.7 %Normal4.5-6.2The [facility] HospitalComment on above:Performed By: #### DATA1C #### [facility] [address] [place] [address] Dr. Mary HerzogPROF 14(COMP METB)on 59-98-3520Dbvjblq [Mass/Vol]3.7 g/dLNormal 3.4-5.0The [facility] HospitalComment on above:Performed By: #### CMP, TSH #### [facility] [address] [place] [address] Dr. Mary HerzogAlbumin/Globulin [Mass ratio]1.1 {ratio}NormalThe [facility] HospitalComment on above:Performed By: #### CMP, TSH #### [facility] [address] [place] [address] Dr. Mary Fields [Catalytic activity/Vol]80 U/VJgowcq26-931Rms [facility] HospitalComment on above:Performed By: #### CMP, TSH #### [facility] [address] [place] [address] Dr. Mary Reyes [Catalytic activity/Vol]24 U/YYpnday59-32Ngw [facility] HospitalComment on above:Performed By: #### CMP, TSH #### [facility] [address] [place] [address] Dr. Mary Arreaga gap [Moles/Vol]12.6 mmol/LNormalThe [facility] Comment on above:Performed By: #### CMP, TSH #### [facility] [address] [place] [address] Dr. Mary Hernandez [Catalytic activity/Vol]21 U/MJnnweb28-87Yqg [facility] HospitalComment on above:Performed By: #### CMP, TSH #### [facility] [address] [place] [address] Dr. Yilan ChangBilirubin [Mass/Vol]0.5 mg/dLNormal0.2-1.0The [facility] Comment on above:Performed By: #### CMP, TSH #### [facility] [address] [address] [address] Mary HerzogCalcium [Mass/Vol]9.4 mg/dLNormal8.5-10.1The [facility] Comment on above:Performed By: #### CMP, TSH #### [facility] [address] [address] [address] Mary HerzogChloride [Moles/Vol]104 mmol/YFcokua40-827Lcq [facility] Comment on above:Performed By: #### CMP, TSH #### [facility] [address] [place] [address] Dr. Mary HerzogCO2 [Moles/Vol]29.5 mmol/NRyjcbd15.0-32.0The [facility] Comment on above:Performed By: #### CMP, TSH #### [facility] [address] [place] [address] Dr. Mary HerzogCreatinine [Mass/Vol]1.03 mg/dLCritically high0.55-1.02The [facility] HospitalComment on above:Performed By: #### CMP, TSH #### [facility] [address] [place] [address] Dr. Mary JohnsonGFR-AF TUNISIAN>60Normal>=60The [facility] HospitalComment on above:Performed By: #### CMP, TSH #### [facility] [address] [place] [address] Dr. Mary JohnsonGFR-NON AF LSMVTLEJ14 mL/min/1.12m6Uanxtgkbuo low>=60The [facility] HospitalComment on above:Performed By: #### CMP, TSH #### [facility] [address] [place] [address] Dr. Mary HerzogGlobulin (S) [Mass/Vol]3.4 g/dLNormalThe [facility] HospitalComment on above:Performed By: #### CMP, TSH #### [facility] [address] [address] [address] Mary HerzogGlucose [Mass/Vol]104 mg/wVQdmkzx20-285Byg [facility] Comment on above:Performed By: #### CMP, TSH #### [facility] [address] [place] [address] Dr. Mary HerzogPotassium [Moles/Vol]4.1 mmol/LNormal3.5-5.1The [facility] Comment on above:Performed By: #### CMP, TSH #### [facility] [address] [place] [address] Dr. Mary HerzogProtein [Mass/Vol]7.1 g/dLNormal6.4-8.2The [facility] Comment on above:Performed By: #### CMP, TSH #### [facility] [address] [place] [address] Dr. Mary HerzogSodium [Moles/Vol]142 mmol/HHtqpkj468-574Aig [facility] Comment on above:Performed By: #### CMP, TSH #### [facility] [address] [place] [address] Dr. Mary HerzogUrea nitrogen [Mass/Vol]19.0 mg/dLCritically high7.0-18.0The [facility] HospitalComment on above:Performed By: #### CMP, TSH #### [facility] [address] [place] [address] Dr. Mary HerzogUrea nitrogen/Creatinine [Mass ratio]18.4 mg/mgNormalThe [facility] HospitalComment on above:Performed By: #### CMP, TSH #### [facility] [address] [place] [address] Dr. Mary HerzogTSHososa 86-50-8661UPG1.684 uIU/mLNormal0.358-3.740The [facility] HospitalComment on above:Performed By: #### CMP, TSH #### [facility] [address] [place] [address] Dr. Mary HerzogVITAMIN B12on 38-45-3952Nbkfwckho (Vitamin B12) [Mass/Vol]1021.0 pg/mLCritically hdem546.0-986.0The [facility] HospitalComment on above:Performed By: #### VITB12 #### [facility] [address] [address] [address] Mary HerzogSmudge cell detectionOrdered By: Frederick Perez on 06-13-2022 Smudge cells LM Ql (Bld)[facility] HospitalCBC AUTO DIFFon 87-36-4294LIBI #0.1 103/ulNormal0.0-0.1The [facility] HospitalComment on above: Performed By: #### CBC #### [facility] [address] [address] [address] Mary HerzogBasophils/100 WBC (Bld)0.6 %Normal0.2-2.0[facility] Comment on above:Performed By: #### CBC #### [facility] [address] [place] [address] Dr. Mary Busby #0.3 103/ulNormal0.0-0.7The [facility] HospitalComment on above: Performed By: #### CBC #### [facility] [address] [address] [address] Mary Johnsonosinophils/100 WBC (Bld)1.9 %Normal0.9-7.0[facility] Comment on above:Performed By: #### CBC #### [facility] [address] [address] [address] Mary Johnsonrythrocyte distribution width (RBC) [Ratio]13.1 %Twvgif07.0-15.0 [facility] SystemComment on above:Performed By: #### CBC #### [facility] [address] [place] [address] Dr. Mary HerzogHematocrit (Bld) [Volume fraction]46.7 %Psutnj34.0-48.0The [facility] HospitalComment on above:Performed By: #### CBC #### [facility] [address] [place] [address] Dr. Mary HerzogHemoglobin (Bld) [Mass/Vol]15.1 g/vQIwuxac78.0-16.0The [facility] HospitalComment on above:Performed By: #### CBC #### [facility] [address] [place] [address] Dr. Mary Carnes #0.05 10e3/ulCritically high0.00-0.03The [facility] Comment on above:Performed By: #### CBC #### [facility] [address] [place] [address] Dr. Mary Carnes %0.3 %Normal0.0-0.5The [facility] HospitalComment on above: Performed By: #### CBC #### [facility] [address] [place] [address] Dr. Mary Lawler #10.4 103/ulCritically high1.2-3.8The [facility] Comment on above:Performed By: #### CBC #### [facility] [address] [place] [address] Dr. Mary Mariahocytes/100 WBC (Bld)56.5 %Dcxkts00.5-60.0The [facility] HospitalComment on above:Performed By: #### CBC #### [facility] [address] [place] [address] Dr. Mary Coronado DIFF REQNONormalThe [facility] HospitalComment on above: Performed By: #### CBC #### [facility] [address] [place] [address] Dr. Mary Harvey (RBC) [Entitic mass]29.5 jqLapyht96.7-34.0The [facility] HospitalComment on above:Performed By: #### CBC #### [facility] [address] [place] [address] Dr. Mary Harvey (RBC) [Mass/Vol]32.3 g/gVJleljh34.9-35.2The [facility] HospitalComment on above:Performed By: #### CBC #### [facility] [address] [place] [address] Dr. Mary Harvey (RBC) [Entitic vol]91.2 nKKceuen68.0-99.0The [facility] HospitalComment on above:Performed By: #### CBC #### [facility] [address] [place] [address] Dr. Mary Burrows #0.8 103/ulNormal0.3-0.8The [facility] HospitalComment on above:Performed By: #### CBC #### [facility] [address] [place] [address] Dr. Mary Brayocytes/100 WBC (Bld)4.4 %Normal1.7-12.0[facility] Comment on above:Performed By: #### CBC #### [facility] [address] [place] [address] Dr. Mary Aguilera #6.7 103/ulCritically high1.4-6.5The [facility] Comment on above:Performed By: #### CBC #### [facility] [address] [place] [address] Dr. Mary Marcusutrophils/100 WBC (Bld)36.3 %Critically low43.0-75.0The [facility] HospitalComment on above:Performed By: #### CBC #### [facility] [address] [place] [address] Dr. Mary Packer mean volume (Bld) [Entitic vol]10.9 fLNormal9.5-13.5The [facility] HospitalComment on above:Performed By: #### CBC #### [facility] [address] [place] [address] Dr. Mary HerzogPLT279 103/hnBuojqc847-733Evo [facility] HospitalComment on above: Performed By: #### CBC #### [facility] [address] [place] [address] Dr. Mary HerzogRBC5.12 106/ulNormal4.20-5.40The [facility] HospitalComment on above:Performed By: #### CBC #### [facility] [address] [place] [address] Dr. Mary HerzogWBC18.3 103/ulCritically high4.0-11.0The [facility] HospitalComment on above:Performed By: #### CBC #### [facility] [address] [place] [address] Dr. Mary HerzogFERRITINon 15-65-6042Dcstoguw [Mass/Vol]97.0 ng/mLNormal8.0-252.0 The [facility] HospitalComment on above:Performed By: #### FERR #### [facility] [address] [place] [address] Dr. Mary HerzogPROF CHEM 8 (BAS METB)on 70-83-9812Eepjw gap [Moles/Vol]11.7 mmol/LNormalThe [facility] HospitalComment on above:Performed By: #### VITB12 #### [facility] [address] [place] [address] Dr. Mary HerzogCalcium [Mass/Vol]10.1 mg/dLNormal8.5-10.1The [facility] Comment on above:Performed By: #### VITB12 #### [facility] [address] [place] [address] Dr. Mary HerzogChloride [Moles/Vol]101 mmol/MSmmfsu60-928Okq [facility] Comment on above:Performed By: #### VITB12 #### [facility] [address] [place] [address] Dr. Mary HerzogCO2 [Moles/Vol]30.7 mmol/QKjjxjk09.0-32.0The [facility] Comment on above:Performed By: #### VITB12 #### [facility] [address] [place] [address] Dr. Mary HerzogCreatinine [Mass/Vol]0.97 mg/dLNormal0.55-1.02The [facility] HospitalComment on above:Performed By: #### VITB12 #### [facility] [address] [place] [address] Dr. Hernandez ChangEGFR-AF TUNISIAN>60Normal>=60The [facility] HospitalComment on above:Performed By: #### VITB12 #### [facility] [address] [address] [address] Mary JohnsonGFR-NON AF HALFAAST31 mL/min/1.11k6Pswtvnrfqo low>=60The [facility] Centerment on above:Performed By: #### VITB12 #### [facility] [address] [address] [address] Mary HerzogGlucose [Mass/Vol]138 mg/dLCritically qxrh27-701Ikh [facility] HospitalComment on above:Performed By: #### VITB12 #### [facility] [address] [address] [address] Mary HerzogPotassium [Moles/Vol]4.4 mmol/LNormal3.5-5.1The [facility] Comment on above:Performed By: #### VITB12 #### [facility] [address] [place] [address] Dr. Mary HerzogSodium [Moles/Vol]139 mmol/EGolamu315-220Mrg [facility] Comment on above:Performed By: #### VITB12 #### [facility] [address] [address] [address] Mary HerzogUrea nitrogen [Mass/Vol]21.0 mg/dLCritically high7.0-18.0The [facility] HospitalComment on above:Performed By: #### VITB12 #### [facility] [address] [address] [address] Mary Anaya nitrogen/Creatinine [Mass ratio]21.6 mg/mgNormalThe [facility] HospitalComment on above:Performed By: #### VITB12 #### [facility] [address] [place] [address] Dr. Mary Ashton 85-82-3249GBB3.796 uIU/mLNormal0.358-3.740The [facility] HospitalComment on above:Performed By: #### VITB12 #### [facility] [address] [address] [address] Mary Pandey Auto (Bld) [#/Vol]Ordered By: Sherwin Yepez on 10-17-2021 Basophils (Bld) [#/Vol]0.1 10*3/uL0.0-0.2FMercy Health St[facility] Basophils/100 WBC Auto (Bld)Ordered By: Sherwin Yepez on 37-09-6674Xrrngrdfp/100 WBC (Bld)0.4 %.[facility] CenterBlood hemoglobin measurement (mass/volume)Ordered By: Sherwin Yepez on 55-33-2892Ygjwndokmo (Bld) [Mass/Vol] 14.4 g/dL11.8-15.4FMercy Health St. Joseph Warren HospitalBlood leukocytes automated count (number/volume)Ordered By: Sherwin Yepez on 11-26-0469EJC (Bld) [#/Vol]19.6 10*3/uL4.5-11.0[facility] CenterCreatinine and Glomerular filtration rate.predicted panel (S/P/Bld)Ordered By: Sherwin Yepez on 10-17-2021 Creatinine [Mass/Vol]0.97 mg/dL0.44-1.03[facility] Eosinophils Auto (Bld) [#/Vol]Ordered By: Sherwin Yepez on 49-94-7887Ltgadfpwrjq (Bld) [#/Vol]0.0 10*3/uL0.0-0.45[facility] CenterEosinophils/100 WBC Auto (Bld)Ordered By: Sherwin Yepez on 47-07-1556Muuycqrqmdz/100 WBC (Bld)0.0 %.[facility] Medical CenterErythrocyte distribution width Auto (RBC) [Ratio]Ordered By: Sherwin Yepez on 58-38-5284Fcmdeejdvtt distribution width (RBC) [Ratio]13.8 %11.9-15.3FMercy Health St. Joseph Warren HospitalEstimated glomerular filtration rate (GFR) non- AmericanOrdered By: Sherwin Yepez on 10-17-2021 GFR/1.73 sq M.predicted among non-blacks MDRD (S/P/Bld) [Vol rate/Area]56 mL/Min [facility] Medical CenterHematocrit Auto (Bld) [Volume fraction]Ordered By: Sherwin Yepez on 30-09-5595Cqijiaturo (Bld) [Volume fraction]43.4 %34.0-46.4 [facility] CenterLaboratory - Hematology and Cell countsOrdered By: Sherwin Yepez on 04-40-7477Dutxvsjlk RBC/100 WBC (Bld) [Ratio]0.0 %0-0.5 [facility] Medical CenterLymphocytes Auto (Bld) [#/Vol]Ordered By: Sherwin Yepez on 70-24-4547Xxqmcfrfdet (Bld) [#/Vol]5.7 10*3/uL1.00-4.8[facility] CenterLymphocytes/100 WBC Auto (Bld)Ordered By: Sherwin Yepez on 86-42-0585Kdhznkbzlim/100 WBC (Bld)28.9 %.[facility] Auto (RBC) [Entitic mass]Ordered By: Sherwin Yepez on 97-45-0534WJK (RBC) [Entitic mass]30.0 pg24.7-34.3FMercy Health St. Joseph Warren HospitalMCHC Auto (RBC) [Mass/Vol]Ordered By: Sherwin Yepez on 69-74-0271QIAU (RBC) [Mass/Vol]33.0 g/dL 32.0-35.0[facility] CenterMCV Auto (RBC) [Entitic vol]Ordered By: Sherwin Yepez on 93-17-6501GDN (RBC) [Entitic vol]90.7 jM31-925VmzxfbgdtMercy Health Springfield Regional Medical CenterMonocytes Auto (Bld) [#/Vol]Ordered By: Sherwin Yepez on 87-10-8434Qgpzagwoy (Bld) [#/Vol]1.2 10*3/uL0.0-0.8[facility] CenterMonocytes/100 WBC Auto (Bld)Ordered By: Sherwin Yepez on 10-17-2021 Monocytes/100 WBC (Bld)5.9 %.[facility] Medical CenterNeutrophils Auto (Bld) [#/Vol]Ordered By: Sherwin Yepez on 90-47-6980Djbuaapqkvx (Bld) [#/Vol]12.7 10*3/uL1.8-7.7FMercy Health St. Joseph Warren HospitalNeutrophils/100 WBC Auto (Bld) Ordered By: Sherwin Yepez on 48-85-6727Zxqezghmtsl/100 WBC (Bld)64.8 %.[facility] CenterNo Panel InformationOrdered By: Sherwin Yepez on 10-17-2021 Estimated GFR ()> 60 mL/MinMercy Health Springfield Regional Medical Center Comment on above:GFR estimated reference range: According to KDOQI guidelines, <60 ml/min/1.73m2 is sufficient todiagnose a patient with chronic kidney disease.Pharmacy Creatinine Clearance (Chem42.09[facility] CenterPlatelet EstimateNormalNormSumma Health Wadsworth - Rittman Medical CenterPlatelet Morphology CommentNormalCleveland Clinic Lutheran HospitalPlatelet mean volume Auto (Bld) [Entitic vol]Ordered By: Sherwin Yepez on 86-77-8109Epfcwgvt mean volume (Bld) [Entitic vol]9.8 fL6.3-10.7FMercy Health St. [facility] Platelets Auto (Bld) [#/Vol]Ordered By: Sherwin Yepez on 81-94-3176Mjglxisjj (Bld) [#/Vol]238 10*3/nE385-299JosnrxvhwMercy Health Springfield Regional Medical CenterRBC Auto (Bld) [#/Vol]Ordered By: Sherwin Yepez on 73-21-3052EPC (Bld) [#/Vol]4.79 10*6/uL 3.60-5.00[facility] CenterRB morphologyOrdered By: Sherwin Yepez on 68-70-9844JFL morphology finding Nom (Bld)N/AFKettering Health Washington Townshiperum or plasma chloride measurement (moles/volume)Ordered By: Sherwin Yepez on 54-87-9251Klzgdggn [Moles/Vol]100 mmol/G16-919XrwxnselgCleveland Clinic Marymount Hospitalerum or plasma potassium measurement (moles/volume)Ordered By: Sherwin Yepez on 85-55-4076Uwpzskqdt [Moles/Vol]4.9 mmol/L3.5-5.1FKettering Health Washington Townshiperum or plasma sodium measurement (moles/volume)Ordered By: Sherwin Yepez on 66-96-7628[place] [Moles/Vol]133 mmol/N680-839HzuurcptaCleveland Clinic Marymount Hospitalerum or plasma total carbon dioxide measurement (moles/volume) Ordered By: Sherwin Yepez on 07-83-6379GP5 [Moles/Vol]25.3 mmol/L22.0-30.0 [facility] Hospitalerum or plasma urea nitrogen measurement (mass/volume)Ordered By: Sherwin Yepez on 71-94-6028Grbj nitrogen [Mass/Vol]16 mg/dL9-23[facility] CenterCOVID-19 Positive/NegativeOrdered By: Sherwin Yepez on 37-82-4261YQCI-CoV-2 (COVID-19) N gene RUSSEL+probe Ql (Resp) NegativeNegativeMercy Health Springfield Regional Medical CenterComment on above:Testing for SARS-CoV-2 by RT-PCR This test was developed and its performance characteristics determined by [employer] ([employer]) and validated at the [facility]. This test has not been FDA [...] of time the declaration that circumstances exist ju stifying the authorization of the emergency use of in vitro diagnostic tests for detection of SARS-CoV-2 virus and/or diagnosis of COVID-19 infection under section 564(b)(1) of the Act, 21 U.S.C. 360bbb-3(b)(1), unless the authorization is terminated or revoked sooner.Basophils Auto (Bld) [#/Vol]Ordered By: Sherwin Yepez on 43-60-7717Gemmglalj (Bld) [#/Vol]N/[facility] Basophils/100 WBC Auto (Bld)Ordered By: Sherwin Yepez on 51-75-5082Uwwcopmkb/100 WBC (Bld)N/[facility] HospitalBasophils/100 WBC (Bld)1 %0-2 [facility] CenterBlood hemoglobin measurement (mass/volume) Ordered By: Sherwin Yepez on 26-00-6550Uoqjunfgju (Bld) [Mass/Vol]14.7 g/dL 11.8-15.4FMercy Health St. Joseph Warren HospitalBlood leukocytes automated count (number/volume)Ordered By: Sherwin Yepez on 13-57-8418TRX (Bld) [#/Vol]17.0 10*3/uL4.5-11.0[facility] CenterCreatinine and Glomerular filtration rate.predicted panel (S/P/Bld)Ordered By: Sherwin Yepez on 10-06-2021 Creatinine [Mass/Vol]0.89 mg/dL0.44-1.03[facility] Eosinophils Auto (Bld) [#/Vol]Ordered By: Sherwin Yepez on 40-64-8707Tgkwdvautdq (Bld) [#/Vol]N/[facility] HospitalEosinophils/100 WBC Auto (Bld) Ordered By: Sherwin Yepez on 68-68-2530Jxkrlnswrlc/100 WBC (Bld)N/[facility] HospitalErythrocyte distribution width Auto (RBC) [Ratio]Ordered By: Sherwin Yepez on 12-72-0067Vwroxwsrkzo distribution width (RBC) [Ratio]13.9 % 11.9-15.3FMercy Health St. Joseph Warren HospitalEstimated glomerular filtration rate (GFR) non- AmericanOrdered By: Sherwin Yepez on 24-33-6076XAV/1.73 sq M.predicted among non-blacks MDRD (S/P/Bld) [Vol rate/Area]> 60 mL/MinMercy Health Springfield Regional Medical CenterHematocrit Auto (Bld) [Volume fraction]Ordered By: Sherwin Yepez on 23-19-6013Swqxspgvyn (Bld) [Volume fraction]45.0 %34.0-46.4FMercy Health St. Joseph Warren HospitalLaboratory - Hematology and Cell countsOrdered By: Sherwin Yepez on 60-62-7660Ghmeuroxd RBC/100 WBC (Bld) [Ratio]0.1 %0-0.5FMercy Health St. Joseph Warren HospitalLymphocytes Auto (Bld) [#/Vol]Ordered By: Sherwin Yepez on 40-54-3876Szplvzqapje (Bld) [#/Vol]N/[facility] Lymphocytes/100 WBC Auto (Bld)Ordered By: Sherwin Yepez on 10-06-2021 Lymphocytes/100 WBC (Bld)N/[facility] HospitalLymphocytes/100 WBC (Bld)43 %18-42[facility] Medical CenterLymphocytes/100 WBC Manual cnt (Bld)Ordered By: Sherwin Yepez on 67-01-1044Pxdrlshvqes/100 WBC (Bld)21 %0-12 [facility] HospitalH Auto (RBC) [Entitic mass]Ordered By: Sherwin Yepez on 53-45-3752PLB (RBC) [Entitic mass]29.8 pg24.7-34.3FMercy Health St. Joseph Warren HospitalMCHC Auto (RBC) [Mass/Vol]Ordered By: Sherwin Yepez on 10-06-2021 MCHC (RBC) [Mass/Vol]32.7 g/dL32.0-35.0[facility] CenterMCV Auto (RBC) [Entitic vol]Ordered By: Sherwin Yepez on 73-90-1577EPG (RBC) [Entitic vol] 90.9 tY97-458YtlctzvqmMercy Health Springfield Regional Medical CenterMonocyte %Ordered By: Sherwin Yepez on 94-31-0902Ttpbqjqws/100 WBC (Bld)2 %1-3FMercy Health St. Joseph Warren Hospital Monocytes Auto (Bld) [#/Vol]Ordered By: Sherwin Yepez on 84-28-5460Jsepjvotb (Bld) [#/Vol]N/[facility] HospitalMonocytes/100 WBC Auto (Bld)Ordered By: Sherwin Yepez on 04-49-6427Aysvcqitp/100 WBC (Bld)N/[facility] HospitalMonocytes/100 WBC Manual cnt (Bld)Ordered By: Sherwin Yepez on 80-46-5121Wriutyplp/100 WBC (Bld)6 %2-11[facility] Neutrophils Auto (Bld) [#/Vol]Ordered By: Sherwin Yepez on 53-73-6334Vgosqypkaac (Bld) [#/Vol]N/[facility] HospitalNeutrophils/100 WBC Auto (Bld) Ordered By: Sherwin Yepez on 95-61-4852Izcvsivffee/100 WBC (Bld)N/[facility] HospitalNo Panel InformationOrdered By: Sherwin Yepez on 10-06-2021 Estimated GFR ()> 60 mL/MinMercy Health [facility] Regional Medical Center Comment on above:GFR estimated reference range: According to KDOQI guidelines, <60 ml/min/1.73m2 is sufficient todiagnose a patient with chronic kidney disease.Pharmacy Creatinine Clearance (ChemN/[facility] Platelet EstimateNormalNoHighland District HospitalPlatelet Morphology CommentNormLicking Memorial HospitalPlatelet mean volume Auto (Bld) [Entitic vol]Ordered By: Sherwin Yepez on 25-45-3811Iyzlddrt mean volume (Bld) [Entitic vol]9.2 fL6.3-10.7FMercy Health St. [facility] Hospital Platelets Auto (Bld) [#/Vol]Ordered By: Sherwin Yepez on 94-31-1147Qyezprgfu (Bld) [#/Vol]223 10*3/rZ442-533ZdwisahikMercy Health Springfield Regional Medical CenterRBC Auto (Bld) [#/Vol]Ordered By: Sherwin Yepez on 41-00-7618UPV (Bld) [#/Vol]4.95 10*6/uL 3.60-5.00[facility] CenterRBC morphologyOrdered By: Sherwin Yepez on 58-81-7304HHI morphology finding Nom (Bld)NormalCleveland Clinic Marymount Hospitalegmented neutrophils/100 WBC Manual cnt (Bld)Ordered By: Sherwin Yepez on 70-36-6165Rcswgowio neutrophils/100 WBC (Bld)27 %50-70Cleveland Clinic Marymount Hospitalerum or plasma calcium measurement (mass/volume)Ordered By: Sherwin Yepez on 10-05-9227Pnqasqx [Mass/Vol]9.5 mg/dL8.2-10.2FKettering Health Washington Townshiperum or plasma chloride measurement (moles/volume)Ordered By: Sherwin Yepez on 94-93-2233Pzyibaab [Moles/Vol]99 mmol/J06-256IezrqmvkkCleveland Clinic Marymount Hospitalerum or plasma glucose measurement (mass/volume)Ordered By: Sherwin Yepez on 53-62-6439Qhlzjjx [Mass/Vol]98 mg/kO42-653RipkfyouxMercy Health [facility] Medical Center Comment on above:ADA recommended reference range Random Glucose Reference Range is dependent on time and content of last meal. Glucose of more than 200 mg/dL in a nonstressed, ambulatory subject supports the diagnosis of Diabetes Mellitus.Serum or plasma potassium measurement (moles/volume)Ordered By: Sherwin Yepez on 96-65-3174Qhucbpdhp [Moles/Vol]4.7 mmol/L3.5-5.1FKettering Health Washington Townshiperum or plasma sodium measurement (moles/volume)Ordered By: Sherwin Yepez on 30-78-7896Cyednl [Moles/Vol]135 mmol/L 136-146Cleveland Clinic Marymount Hospitalerum or plasma total carbon dioxide measurement (moles/volume)Ordered By: Sherwin Yepez on 50-43-3866DE8 [Moles/Vol] 27.3 mmol/L22.0-30.0C[facility] Clinic Marymount Hospitalerum or plasma urea nitrogen measurement (mass/volume)Ordered By: Sherwin Yepez on 03-27-9011Ephc nitrogen [Mass/Vol]19 mg/dL9-23[facility] Medical CenterCNPNon 66-12-1580QMLFFnjazrrjp ([place]AS[place]) MARITZA ESPINO ([id number]) 1945 F Date Time Provider Department 12/01/20 ANDREI MARIO During your visit today, we recorded the following information about you: Nicole Neal [facility] 12/01/2020 9:08 AM Signed Records faxed to [facility]. Patient to follow with Dr. Beckett. Release signed. . Allergies As of Date: 12/01/2020 Noted Allergy Reaction AMOXICILLIN 11/20/2016 7 - Swelling Comments: Facial swelling RAGWEED POLLEN 11/19/2016 16 - Unknown Date Reviewed: 05/27/2020 Reviewed by: Jayson Hooker - Fully Assessed Reason for Visit: Records [...] [C91.1*12/11/2017 Encounter Status:Closed by NICOLE VÁZQUEZ on 12/01/20[facility] 87-49-1097QHVBFakqziloj ([place]MAS[place]) MARITZA ESPINO ([id number]) 1945 F Date Time Provider Department 11/24/20 [...] Unknown Date Reviewed: 05/27/2020 Reviewed by: Jayson Hooker - Fully Assessed Reason for Visit: Lab Orders [1688] Primary Visit Diagnosis:CLL (chronic lymphocytic leukemia) ([facility]) [C91.10] Order(s):CBC + DIFF [SQCBCDIF] Order #: [id number] STANDING COMP METABOLIC PANEL [SQCMP] Order #: [id number] STANDING LD LACTATE DEHYDRO [SQLD6] Order #: [id number] STANDING Prescriptions as of 11/30/2020 - amitriptyline [...] leukemia) ([facility]) [C91.1*12/11/2017 Encounter Status:Closed by CARLSONJune on 11/30/20[facility] HealthMINOOOVSRachid 16-30-4542JXRORWJwnnb ([place]) Office ([place]) MARITZA ESPINO ([id number]) 1945 F Date Time Provider Department 06/01/20 10:00 AM ANDREI MARIO During your visit today, we recorded the following information about you: Temperature Pulse Respiration Blood pressure 97.2 degrees 73/minute 18/minute 131/73 Weight Height 56.3 kg 1.579 m Andrei Mario MD 06/01/2020 10:13 AM Signed NAME: Maritza Espino CLINIC NO.: [id number] DATE OF SERVICE: June 01, 2020 Some [...] today. She was formerly a patient of [facility]. There have been no treatment indications. PATHOLOGIC [...] Pattern LSI BETHEL (11q22.3): Normal Pattern LSI C20S740 (13q14): Normal Pattern CEP 12: Normal Pattern LSI LAMP1 (13q34): Normal Pattern IGH/CCND1 t(11;14)(q13;q32): Negative INTERPRETATION: There is a normal pattern of hybridization with each of the probes tested. 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 1. 11/21/2016 Peripheral blood Flow Cy: Specimen originated from [facility] Specimen #: [id number] Submitting Physician: FREDERICK PEREZ II, DO SPECIMEN [...] is suggested. REVIEW OF (more content not included)...NormalWestern Reserve Hospitalp Metabolic Panelon 16-87-1007Odjtzkl [Mass/Vol]4.3 g/dLNormal3.9-4.9ClevelCleveland Clinic Medina Hospital ClevelandALP [Catalytic activity/Vol]66 U/YFzqzci77-542Zuxoywdhc Clinic ClevelandALT [Catalytic activity/Vol]13 U/LNormal7-38[facility] Anion gap [Moles/Vol]8 mmol/LLow9-18[facility] HospitalAST [Catalytic activity/Vol]20 U/HHduwne53-32WfzhbkwfmProtestant Deaconess HospitalBilirubin [Mass/Vol]0.5 mg/dLNormal0.2-1.3ClevelCleveland Clinic Medina Hospital ClevelandCalcium [Mass/Vol]9.4 mg/dLNormal 8.5-10.2CProMedica Memorial Hospital ClevelandChloride [Moles/Vol]101 mmol/YBhlalt59-755 [facility] HospitalCO2 [Moles/Vol]26 mmol/YXuhxtx27-48LryotyjujProtestant Deaconess HospitalCreatinine [Mass/Vol]1.12 mg/dLHigh0.58-0.96[facility] eGFR- Amer.58NormalCBlanchard Valley Health System Bluffton HospitaleGFR-All Other Races48 . NormalProtestant Deaconess HospitalComment on above:Result Comment: eGFR (Estimated GFR) Units of measure: [...] the eGFR may not accurately reflect actual GFR.Glucose [Mass/Vol]97 mg/dLNormal 74-99[facility] on above:Result Comment: The [place] [employer] Association (ADA) provides guidance for cutoff [...] Standards of Medical Care in Diabetes 2016, [place] [employer]. Diabetes Care. 2016.39(Suppl 1).Potassium [Moles/Vol]4.5 mmol/L Normal3.7-5.1CBlanchard Valley Health System Bluffton HospitalProtein [Mass/Vol]6.4 g/dLNormal6.3-8.0 [facility] HospitalSodium [Moles/Vol]135 mmol/AUat351-922YflhcxaiwProtestant Deaconess HospitalUrea nitrogen [Mass/Vol]32 mg/dLHigh7-21K[facility]tering Health TroyvelandLDon 79-31-1716EA706 U/EAuzmeu622-099EujcqqssgProtestant Deaconess HospitalRemote CBCDIF (for [facility] use only)on 09-98-7477Skj Baso0.10 k/uLNormal<0.11CBlanchard Valley Health System [facility]uff[facility] Hospital Abs Mono0.97 k/uLHigh<0.87[facility]aconess HospitalAbs Neut5.24 k/uLNormal 1.45-7.50[facility] HospitalAbsolute nRBC<0.01Normal<0.01[facility] HospitalBasophils/100 WBC (Bld)0.5 %NormalProtestant Deaconess HospitalDTYPEAuto DiffNormalClevelMaria Parham HealthEosinophils (Bld) [#/Vol]0.47 10*3/uLHigh <0.46[facility] HospitalEosinophils/100 WBC (Bld)2.3 %NormalProtestant Deaconess HospitalErythrocyte distribution width (RBC) [Ratio]13.3 %Normal 11.5-15.0[facility]acon[facility] HospitalHematocrit (Bld) [Volume fraction]44.1 % Ywaxex37.0-46.0[facility] HospitalHemoglobin (Bld) [Mass/Vol]14.3 g/dL Ifyeul36.5-15.5CBlanchard Valley Health System Bluffton HospitalLymphocytes (Bld) [#/Vol]13.74 10*3/uL High1.00-4.00[facility]acon[facility] HospitalLymphocytes/100 WBC (Bld)67.0 %Normal [facility] HospitalMCH29.6 eJDvnczy44.0-34.0[facility] MCHC (RBC) [Mass/Vol]32.4 g/vQIhfqvn86.5-36.0[facility] HospitalMCV (RBC) [Entitic vol]91.3 eUWtakie96.0-100.0[facility] HospitalMonocytes/100 WBC (Bld)4.7 %NormalProtestant Deaconess HospitalNeutrophils/100 WBC (Bld)25.5 %Normal [facility] ClevelandNRBCs0.0 /100 TAWPtyovs9FwxipmjquProtestant Deaconess Hospital Platelet mean volume (Bld) [Entitic vol]10.5 fLNormal9.0-12.7CBlanchard Valley Health System Bluffton HospitalPlatelets (Bld) [#/Vol]309 10*3/oZIoxvjp357-748NwrzqteheProtestant Deaconess HospitalRBC (Bld) [#/Vol]4.83 10*6/uLNormal3.90-5.20[facility] WBC (Bld) [#/Vol]20.52 10*3/uLHigh3.70-11.00[facility] HospitalCNPNon 56-22-9094ARMNBvepqjkpf ([place]MASA) MARITZA ESPINO ([id number]) 1945 F Date Time Provider Department 05/27/20 ANDREI MARIO During your visit today, we recorded the following information about you: Allergies As of Date: 05/27/2020 Noted Allergy Reaction AMOXICILLIN 11/20/2016 7 - Swelling Comments: Facial swelling RAGWEED POLLEN 11/19/2016 16 - Unknown Date Reviewed: 05/27/2020 Reviewed by: Jayson Hooker - Fully Assessed Reason for Visit: Lab Orders [1688] Primary Visit Diagnosis:CLL (chronic lymphocytic leukemia) (HCC) [C91.10] Other Visit Diagnosis:Lymphocytosis [D72.820] Order(s):CBC + DIFF (FOR REMOTE [facility] USE) [SQRCBCDF] Order #: [id number] FUTURE COMP METABOLIC PANEL [SQCMP] Order #: [id number] FUTURE LD LACTATE DEHYDRO [SQLD6] Order #: [id number] FUTURE Prescriptions as of 05/27/2020 Sig: METOPROLOL [...] leukemia) (HCC) [C91.1*12/11/2017 Encounter Status:Closed by JAYSON HOOKER CNP on 05/27/20[facility] Vital Signs Date TimeVital SignValuePerforming EcxerkvjfBconacco81-82-0378 09:38-0400 Diastolic blood arabuxfa71 mm[Hg]Evaristo Anguiano MD Work Phone: [phone]10-23-2025 09:38-0400 Heart rate71 /minEvaristo Anguiano MD Work Phone: [phone]10-23-2025 09:38-0400 Systolic blood nkvhxxym979 mm[Hg]Evaristo Anguiano MD Work Phone: [phone]10-23-2025 09:28-0400 Body .48 cmEvaristo Anguiano MD Work Phone: [phone]10-23-2025 09:28-0400 Body mass index (BMI) [Ratio]21.4 kg/c2JrncrnEvaristo Anguiano MD Work Phone: [phone]10-23-2025 09:28-0400 Body aycatt95.07 kgEvaristo Anguiano MD Work Phone: [phone]08-20-2025 11:24-0400 Body wtjlue559.48 cmEvaristo Anguiano MD Work Phone: [phone]08-20-2025 11:24-0400 Body mass index (BMI) [Ratio]21.2 kg/a6UogeyeEvaristo Anguiano MD Work Phone: [phone] [address]08-20-2025 11:24-0400 Body .61 kgEvaristo Anguiano MD Work Phone: [phone] [address]08-20-2025 11:24-0400 Diastolic blood mm[Hg]Evaristo Anguiano MD Work Phone: [phone] [place], [place] 3981708-20-2025 11:24-0400 Heart rate77 /Helen Anguiano MD Work Phone: [phone] [place], [place] 3981708-20-2025 11:24-0400 Systolic blood qqiantwp760 mm[Hg]Evaristo Anguiano MD Work Phone: [phone] [place], [place] 3981707-28-2025 09:53-0400 Body gqlokl330.48 cmEvaristo Anguiano MD Work Phone: [phone] [place], [place] 3981707-28-2025 09:53-0400 Body mass index (BMI) [Ratio]21.1 kg/k5RbbjnlEvaristo Anguiano MD Work Phone: [phone] [place], [place] 3981707-28-2025 09:53-0400 Body nvwigc05.33 kgEvaristo Anguiano MD Work Phone: [phone] [place], [place] 3981707-28-2025 09:53-0400 Diastolic blood mqekdqft42 mm[Hg]Evaristo Anguiano MD Work Phone: [phone] [place], [place] 3981707-28-2025 09:53-0400 Heart rate81 /Helen Anguiano MD Work Phone: [phone] [place], [place] 3981707-28-2025 09:53-0400 Respiratory rate12 /Helen Anguiano MD Work Phone: [phone] [place], [place] 3981707-28-2025 09:53-0400 SaO2% (BldA) [Mass fraction]98 %Evaristo Anguiano MD Work Phone: [phone] [place], [place] 3981707-28-2025 09:53-0400 Systolic blood mtducqxj217 mm[Hg]Evaristo Anguiano MD Work Phone: [phone] [place], [place] 3981706-24-2025 14:18-0400 Body gqepva712.48 cmEvaristo Anguiano MD Work Phone: [phone]06-24-2025 14:18-0400 Body mass index (BMI) [Ratio]20.8 kg/b4EmvnlvEvaristo Anguiaon MD Work Phone: [phone]06-24-2025 14:18-0400 Body jlofmo38.7 kgEvaristo Anguiano MD Work Phone: [phone] [place], [place] 3981706-24-2025 14:18-0400 Diastolic blood mjoqpqut40 mm[Hg]Evaritso Anguiano MD Work Phone: [phone] [place], [place] 3981706-24-2025 14:18-0400 Heart rate98 /Helen Anguiano MD Work Phone: [phone] [place], [place] 3981706-24-2025 14:18-0400 Systolic blood mm[Hg]Evaristo Anguiano MD Work Phone: [phone] [place], [place] 3981706-20-2025 09:03-0400 Body pkxpao373.48 cmEvaristo Anguiano MD Work Phone: [phone] [place], [place] 3981706-20-2025 09:03-0400 Body mass index (BMI) [Ratio]20.9 kg/f6UviwiiEvaristo Anguiano MD Work Phone: [phone] [place], [place] 3981706-20-2025 09:03-0400 Body .93 kgEvaristo Anguiano MD Work Phone: [phone] [place], [place] 3981706-20-2025 09:03-0400 Diastolic blood blavauzd97 mm[Hg]Evaristo Anguiano MD Work Phone: [phone] [place], [place] 3981706-20-2025 09:03-0400 Heart rate97 /Helen Anguiano MD Work Phone: [phone] [place], [place] 3981706-20-2025 09:03-0400 Systolic blood omtswlkd980 mm[Hg]Evaristo Anguiano MD Work Phone: [phone] [place], [place] 3981703-24-2025 10:23-0400 Body .48 cmMer[facility] Center03-24-2025 10:23-0400Body mass index (BMI) [Ratio]21.4 kg/f2EnavqbqziMercy Health [facility] Regional Medical Center03-24-2025 10:23-0400Body jueynp42.07 kgMercy Health [facility] Regional Medical Center03-24-2025 10:23-0400Diastolic blood audittyn09 mm[Hg][facility] 06-15-2024 10:23-0400Heart rate87 /[facility] 06-15-2024 10:23-0400Respiratory rate18 /[facility] 06-15-2024 10:23-8505GtZ6% (BldA) [Mass fraction]96 %[facility]03-24-2025 10:23-0400Systolic blood rqfiwquf715 mm[Hg][facility]03-04-2025 13:12-0500Body .48 cmMercy Health [facility] Medical Center03-04-2025 13:12-0500Body mass index (BMI) [Ratio]21 kg/m2 [facility]03-04-2025 13:12-0500Body aanpqn93.16 kg [facility]03-04-2025 13:12-0500Diastolic blood ibxjupmg83 mm[Hg][facility]03-04-2025 13:12-0500Heart rate96 /min [facility]03-04-2025 13:12-0500Systolic blood jvzdfyeq901 mm[Hg][facility]10-10-2024 07:50-0400Body .48 cmMercy Health [facility] Medical Center10-10-2024 07:50-0400Body mass index (BMI) [Ratio]20.9 kg/b7VwiokbipqMercy Health Springfield Regional Medical Center10-10-2024 07:50-0400Body .93 kgMercy Health [facility] Regional Medical Center10-10-2024 07:50-0400Diastolic blood mm[Hg][facility]10-10-2024 07:50-0400 Heart rate86 /[facility]10-10-2024 07:50-0400 Respiratory rate16 /[facility]10-10-2024 07:50-0400 SaO2% (BldA) [Mass fraction]96 %[facility]10-10-2024 07:50-0400Systolic blood lzmmayyg341 mm[Hg][facility] 08-14-2023 13:10-0400Diastolic blood udktdhhf82 mm[Hg]Papito Tripp [phone]-Agwct[address] [place], [place] 0322605-22-2024 13:10-0400Mean blood xhvamdbx192 mm[Hg]Mohamad Mouchli 109-6952Dcdsqf-Cqdko[address] [place], [place] 0322605-22-2024 13:10-0400Systolic blood upuubmzw751 mm[Hg]Enidamad Mouchli [phone]-Erlny[address] [place], [place] 0322605-22-2024 13:07-0400Blood Pressure LocationMohamad Mouchli [phone]-Qrrfi[address] [place], [place] 0322605-22-2024 13:07-0400Diastolic blood hutcwecf43 mm[Hg]Enidamad Mouchli [phone]-Inmhc[address] [place], [place] 0322605-22-2024 13:07-0400Heart rate92 /minMohamad Mouchli 701-4984Mluzgt-Sdwja[address] [place], [place] 0322605-22-2024 13:07-0400Respiratory rate16 /minMohamad Mouchli [phone]-Lpick[address] [place], [place] 0322605-22-2024 13:07-0400Systolic blood cwmetauq642 mm[Hg]Mohamad Mouchli [phone]-Koifl[address] [place], [place] 0322604-17-2024 11:25-0400Diastolic blood mm[Hg]Mohamad Mouchli [address] [place], [place] 8405804-17-2024 11:25-0400Heart rate86 /minMohamad Mouchli [facility]04-17-2024 11:25-0400 Respiratory rate17 /minMohamad Mouchli [facility]04-17-2024 11:25-2904SrU8% (BldA) [Mass fraction]95 %Mohamad Mouchli [facility]04-17-2024 11:25-0400 Systolic blood fsyuwxjf029 mm[Hg]Mohamad Mouchli [facility]04-17-2024 11:10-0400 Diastolic blood eqtzgqfe61 mm[Hg]Mohamad Mouchli [address] [place], [place] 8405804-17-2024 11:10-0400Heart rate80 /minMohamad Mouchli [address] [place], [place] 8405804-17-2024 11:10-0400 Respiratory rate12 /minMohamad Mouchli [facility]04-17-2024 11:10-6450GyK4% (BldA) [Mass fraction]98 %Mohamad Mouchli [facility]04-17-2024 11:10-0400 Systolic blood auygrjlx564 mm[Hg]Mohamad Mouchli [address] [place], [place] 8405804-17-2024 11:05-0400 Diastolic blood oqjhgnwc31 mm[Hg]Mohamad Mouchli [address] [place], [place] 9282304-17-2024 11:05-0400Heart rate73 /minMohamad Mouchli [facility]04-17-2024 11:05-0400 Respiratory rate13 /minMohamad Mouchli [address] [place], [place] 8405804-17-2024 11:05-1141QwM4% (BldA) [Mass fraction]96 %Papito Chapali [facility]04-17-2024 11:05-0400 Systolic blood thxugizo472 mm[Hg]Papito Chapali [facility]04-17-2024 10:55-0400Body rheinpxniub10.52 [degF]Papito Chapali [address] [place], [place] 9282304-17-2024 10:50-0400 Respiratory rate15 /minMohamad Mouchli [address] [place], [place] 9282304-17-2024 10:45-0400 Respiratory rate15 /minMohamad Mouchli [facility]04-17-2024 10:40-0400 Respiratory rate15 /minMohamad Mouchli [facility]04-17-2024 08:49-0400Blood Pressure LocationLloydad Woodrowuchli [address] [place], [place] 9282304-17-2024 08:49-0400Body hlygvfthuho09.52 [degF]Papito Chapali [facility]04-10-2024 08:18-0400Body ekaxuf471.48 cmMD [facility]04-10-2024 08:18-0400Body mass index (BMI) [Ratio]20.1 kg/m2[facility]04-10-2024 08:18-0400Body uyejuu99.95 kgOhio[facility]04-10-2024 08:18-0400Diastolic blood dytfzwoc33 mm[Hg] [facility]04-10-2024 08:18-0400 Heart rate91 /min [facility]04-10-2024 08:18-0400Systolic blood xmfyybtd932 mm[Hg]MD Becker [facility]03-25-2024 10:280400Body ssmhodqdvqn15.5 [degF]MD Becker [facility]03-25-2024 10:280400Body kmomsk25.89 kg [facility]03-25-2024 10:280400Diastolic blood bimsvrhl69 mm[Hg]MD Becker [facility] 06-17-2023 10:280400Heart rate96 /min[facility] [facility]03-25-2024 10:0400Respiratory rate16 /minMD [facility]03-25-2024 10:3570ViC7% (BldA) [Mass fraction]96 %MD [facility]03-25-2024 10:28040Systolic blood bsciexqo399 mm[Hg]MD Becker [facility] 06-13-2023 09:42-0400[facility]sd[facility]yu583.48 [facility] 09:42-0400Body mass index (BMI) [Ratio]20.3 kg/m2[facility]03-21-2024 09:42-0400[facility] 09:42-0400 Diastolic blood twbfcwes71 mm[Hg]MD Becker [facility]03-21-2024 09:42-0400Heart rate93 /min [facility]03-21-2024 09:42-0400Systolic blood hfhwahps615 mm[Hg]MD Becker [facility]03-04-2024 12:06-0500Diastolic blood leatglev13 mm[Hg]Papito Tripp [phone]-FydozOhiohealth [facility] Dugeye08-96-1705 12:06-0500Mean blood zieatain669 mm[Hg]Papito Tripp [phone]-Iqxpy[address] [place], [place] 0322603-04-2024 12:06-0500Systolic blood ayztmrmc909 mm[Hg]aMryd Sammili [phone]-Vikjp[address] [place], [place] 0322603-04-2024 12:01-0500Blood Pressure LocationPapito Chapali [phone]-Kxwkq[address] [place], [place] 0322603-04-2024 12:01-0500Body pbzrwqnntic79.34 [degF]Papito Chapali [phone]-Tyfhc[address] [place], [place] 0322603-04-2024 12:01-0500Diastolic blood ofwfoewu10 mm[Hg]Papito Chapali [phone]-Lsmwn[address] [place], [place] 0322603-04-2024 12:01-0500Heart rate91 /minWoodrowhamad Sammili [phone]-Hvbzo[address] [place], [place] 0322603-04-2024 12:01-0500Respiratory rate14 /minWoodrowhamad Woodrowuchli [phone]-Vchgl[address] [place], [place] 0322603-04-2024 12:01-0500Systolic blood ccklzygt782 mm[Hg]Papito Tripp [phone]-Evvra[address] [place], [place] 0322601-30-2024 08:45-0500Body .48 cmEvaristo Anguiano Other [facility]01-30-2024 08:45-0500 Body mass index (BMI) [Ratio]20.37 kg/d4CextskEvaristo Anguiano Other [employer] Other 01-30-2024 08:45-0500Body cxouru33.53 kgEvairsto Anguiano Other [facility]01-30-2024 08:45-0500 Diastolic blood xytwgbro81 mm[Hg]Evaristo Anguiano Other [facility]01-30-2024 08:45-0500 Systolic blood llqfgobv483 mm[Hg]Evaristo Anguiano Other [facility]01-23-2024 13:30-0500 Body .48 cmEvaristo Anguiano Other [facility]01-23-2024 13:30-0500 Body mass index (BMI) [Ratio]20.67 kg/z6CbsiwfEvaristo Anguiano Other [employer] Other 01-23-2024 13:30-0500Body nwwahk11.26 kgEvaristo Anguiano Other [employer] Other 01-23-2024 13:30-0500Body zgaczb87.25 [facility] 13:30-0500Diastolic blood zofhqsvg69 mm[Hg]Evaristo Anguiano Other [facility]01-23-2024 13:30-0500 SaO2% (BldA) [Mass fraction]97 %Evaristo Anguiano Other [employer] Other 01-23-2024 13:30-0500Systolic blood mm[Hg] Evaristo Anguiano Other [facility]11-20-2023 13:15-0500 Body .48 cmEvaristo Anguiano Other [employer] Other 11-20-2023 13:15-0500Body mass index (BMI) [Ratio] 20.81 kg/w0YfmoldEvaristo Anguiano Other [employer] Other 11-20-2023 13:15-0500Body lnwaph24.62 kgEvaristo Anguiano Other [employer] Other 11-20-2023 13:15-0500Diastolic blood wdicvwzi59 mm[Hg] Evaristo Anguiano Other [employer] Other 11-20-2023 13:15-0500Systolic blood jlhltsru502 mm[Hg] Evaristo Anguiano Other [employer] Other 10-10-2023 08:30-0400Body ypuzfb821.48 cmEvaristo Anguiano Other [employer] Other 10-10-2023 08:30-0400Body mass index (BMI) [Ratio] 21.32 kg/q6WnxjedEvaristo Anguiano Other [employer] Other 10-10-2023 08:30-0400Body xtuebj77.89 kgEvaristo Anguiano Other [employer] Other 10-10-2023 08:30-0400Diastolic blood wemwbdpv20 mm[Hg] Evaristo Anguiano Other [employer] Other 10-10-2023 08:30-0400Systolic blood zmfbyofq096 mm[Hg] Evaristo Anguiano Other [employer] Other 04-10-2023 09:30-0400Body ijwvms114.48 cmEvaristo Anguiano Other [employer] Other 04-10-2023 09:30-0400Body mass index (BMI) [Ratio] 21.58 kg/e9OnanmqEvaristo Anguiano Other [employer] Other 04-10-2023 09:30-0400Body yizavk95.52 kgEvaristo Anguiano Other [employer] Other 04-10-2023 09:30-0400Diastolic blood ecizryal56 mm[Hg] Evaristo Annmarie Other [employer] Other 04-10-2023 09:30-7523WuU8% (BldA) [Mass fraction]98 % Evaristo Annmarie Other [employer] Other 04-10-2023 09:30-0400Systolic blood zeqfxtcf106 mm[Hg] Evaristo Annmarie Other [employer] Other 03-27-2023 10:53-0400Body .8 [degF]MD Becker [facility]03-27-2023 10:53-0400Body weight 53.52 kgMD [facility]03-27-2023 10:53-0400 Diastolic blood akanbqmu68 mm[Hg]MD Becker [facility]03-27-2023 10:53-0400Heart rate91 /minMD [facility]03-27-2023 10:53-0400Respiratory rate16 /minMD [facility]03-27-2023 10:53-9280AwW3% (BldA) [Mass fraction]94 %MD Becker [facility]03-27-2023 10:53-0400Systolic blood ovllrqsn035 mm[Hg]MD Becker [facility]02-17-2023 09:45-0500Body gfddvi097.48 cmEvaristo Anguiano Other [employer] Other 02-17-2023 09:45-0500Body mass index (BMI) [Ratio] 21.95 kg/n2DccyaoEvaristo Anguiano Other [employer] Other 02-17-2023 09:45-0500Body owgcse77.43 kgYelitzali Annmarie Other [employer] Other 02-17-2023 09:45-0500Diastolic blood tadrnrok58 mm[Hg] Evaristo Anguiano Other [employer] Other 02-17-2023 09:45-5501EfF6% (BldA) [Mass fraction]97 % Evaristo Anguiano Other [employer] Other 02-17-2023 09:45-0500Systolic blood rtgpcdeg705 mm[Hg] Evaristo Anguiano Other [employer] Other 01-12-2023 15:30-0500Body .48 cmEvaristo Anguiano Other [employer] Other 01-12-2023 15:30-0500Body mass index (BMI) [Ratio] 21.58 kg/i4EpjfkiEvaristo Anguiano Other [employer] Other 01-12-2023 15:30-0500Body .52 kgEvaristo Anguiano Other [employer] Other 01-12-2023 15:30-0500Diastolic blood ziyfwvlb21 mm[Hg] Evaristo Anguiano Other [employer] Other 01-12-2023 15:30-4326MxF7% (BldA) [Mass fraction]98 % Evaristo Anguiano Other [employer] Other 01-12-2023 15:30-0500Systolic blood ijldwuas246 mm[Hg] Evaristo Anguiano Other [employer] Other 07-26-2022 15:57-0400Body gexwarfprnh03.6 [degF]MD Evaristo Anguiano Work Phone: [phone]07-26-2022 15:57-0400 Diastolic blood emroldka68 mm[Hg]MD Evaristo Anguiano Work Phone: [phone])[address]07-26-2022 15:57-0400 Heart rate76 /minMD Evaristo Anguiano Work Phone: [phone]07-26-2022 15:57-0400 Respiratory rate14 /minMD Evaristo Anguiano Work Phone: [phone])[address] [place], [place] 3981707-26-2022 15:57-0400 SaO2% (BldA) [Mass fraction]91 %MD Evaristo Anguiano Work Phone: [phone])[address] [place], [place] 3981707-26-2022 15:57-0400 Systolic blood mm[Hg]MD Evaristo Anguiano Work Phone: [phone])[address] [place], [place] 3981707-26-2022 09:45-0400 Body gituir839.02 cmMD Evaristo Anguiano Work Phone: [phone] [place], [place] 3981707-26-2022 08:42-0400 Inhaled oxygen flow rate2 L/minMD Evaristo Anguiano Work Phone: [phone] [place], [place] 3981707-26-2022 05:08-0400 Body usbetr97.3 kgMD Evaristo Anguiano Work Phone: [phone] [place], [place] 3981707-25-2022 11:25-0400 Body mass index (BMI) [Ratio]20 kg/m2MD Evaristo Anguiano Work Phone: [phone] [place], [place] 3981703-25-2022 14:43-0400 Body miswrb301 cmMD Becker [facility] Encounters Encounter DateEncounter TypeCare ProviderFacilityStart: 02-01-2025 End: 70-30-5805umhctkkujmILAIXLDZGWP [facility] Start: 01-14-2025 End: 97-78-1141watykwrvwmBwwwuu E Braun MD [facility] Phone: [facility]25 End: 36-91-5857Zaolixi encounter procedureEvaristo Anguiano MD-[facility] Work Phone: Start: 19-02-0140Upy-patient / Non-visitLinda Jef PORTER-[facility] Cardiology Work Phone: Start: 11-27-2024 End: 71-45-7819gjnmclecdpWpqdih E Braun MD Work Phone: [facility] Work Phone: Start: 11-27-2024 End: 57-67-9875Cdcbpxu encounter procedureEvaristo Anguiano MD-[facility] Work Phone: Start: 11-11-2024 End: 53-95-5787sheoxycqsyHeltsx E Braun MD Work Phone: [facility] Work Phone: Start: 11-11-2024 End: 23-51-7850Ajkyidb encounter procedureEvaristo Anguiano MD-[facility] Work Phone: Start: 21-88-9285Miq-patient / Non-visitCatgilson Mott CMA-[facility] Work Phone: Start: 41-76-0863Prv-patient / Non-visitKeabby Mott DO -[facility] [employer] Work Phone: Start: 13-84-6580Odppihj encounter procedureEvaristo Anguiano MD [facility] Phone: [facility] 10-19-2024 End: 34-53-5933qassilkgomVrjnor E Braun MD Work Phone: [facility] Work Phone: Start: 10-19-2024 End: 12-74-8355Erdsbbu encounter procedureEvaristo Anguiano MD-[facility] Work Phone: Start: 09-15-2024 End: 76-99-3155Pzlwjrv encounter procedureEvaristo Anguiano MDBl[facility] Work Phone: Start: 09-11-2024 End: 90-52-2844Tdpsenx encounter procedureEvaristo Anguiano MDBl[facility]ard [facility] Work Phone: Start: 06-15-2024 End: 07-51-6749gyjafzvxdeMsejrkzlqCorey Hospital Work Phone: Start: 06-15-2024 End: 88-06-3480Mbnqtry encounter procedureCarepartners Rehabilitation [facility] Physician [facility] Work Phone: Start: 06-01-2024 End: 57-42-5567ihuobhvkiwFiwvxek A. MouchliFacility:[place] DHStart: 05-26-2024 End: 32-83-7446mmwybmuxlhWwbbfxqdjCorey Hospital Work Phone: Start: 05-26-2024 End: 58-68-7528Fbmdglj encounter procedureMiriam Physician [facility] Work Phone: Start: 01-02-2024 End: 39-09-0900etsgcgklbaJadawgfntCorey Hospital Work Phone: Start: 01-02-2024 End: 69-84-6500Ayynpvy encounter procedureMariebon [facility] Physician [facility] Work Phone: Start: 08-14-2023 End: 11-93-7429ihfxylsimnBjppgha A. MouchliFacility:[place] DHStart: 08-14-2023 End: 60-43-1461Rptorjp encounter procedurePapito Tripp [phone]-GnoboOhiohealth [facility] Hospital [facility] Start: 07-10-2023 End: 48-55-0568Qngotei encounter procedurePapito Tripp [facility] Start: 07-03-2023 End: 11-14-2246uymfvsvomqPC [facility] Work Phone: Start: 07-03-2023 End: 52-93-0498Mfqrfnk encounter procedureMD Eugenio [facility] Work Phone: Start: 91-13-3293Jak-patient / Non-visitMD Eugenio [facility] [employer] Work Phone: Start: 07-04-1773Fapgvxkckt RecurringMD [facility] Work Phone: Start: 06-17-2023 End: 81-78-9322zfdwgdybcbZI [facility] Work Phone: Start: 06-17-2023 End: 94-70-7905Zwmlmqc encounter procedureMD Eugenio KwonS[facility]te [facility] Work Phone: Start: 06-13-2023 End: 98-63-7928mzjiltmmwsQZ [facility] Work Phone: Start: 06-13-2023 End: 59-34-3207Bnlxmrg encounter procedureMD Eugenio Carreon [facility] GroupBl[facility] Work Phone: Start: 31-25-4717Eanodhlqfm RecurringMD [facility] Work Phone: Start: 05-27-2023 End: 41-98-0564Akmqwlx encounter procedureMocuco Tripp [phone]-RnixrOhiohealth [facility] Hospital [facility] Start: 04-30-2023 End: 82-78-1315okmrtcuvksRqnupz Braun Other [facility] [employer] Other Start: 65-64-4167Lvcylbquv encounterMarcia [facility]ela [facility] ClinicStart: 04-23-2023 End: 47-10-0816rxnsyqlyseQysobn Anguiano Other [employer] Other Start: 91-34-7941Hkfldg outpatient visit 15 minutes [facility] ClinicStart: 04-23-2023 End: 58-31-1873Opaegfq encounter procedureMD Eugenio WyattAndrew [facility]ician [facility]-Start: 04-16-2023 End: 60-50-7865hhvchnskkdCcpxqx Anguiano Other [employer] Other Start: 00-58-1261Hwwxwb outpatient visit 15 minutes [facility] ClinicStart: 04-16-2023 End: 32-18-6959Pnhwsqq encounter procedureMD Eugenio [facility]-Start: 02-11-2023 End: 26-86-2484cfwxdjnuydAtmxgl Anguiano Other [employer] Other Start: 55-15-5409Vwjhgh outpatient visit 15 minutes [facility] ClinicStart: 11-01-8169Zzewlkydv encounterMarcia Estela [facility] ClinicStart: 01-14-2023 End: 82-68-6603zazoacryoaKjifjo Anguiano Other [employer] Other Start: 82-66-8858Gqzyrzwcc encounterMarcia Estela [facility] ClinicStart: 01-01-2023 End: 16-18-6429zkgnmsqfkuIppglw Anguiano Other [employer] Other Start: 21-20-0209Ezkugd outpatient visit 25 minutes [facility] ClinicStart: 08-22-2022 End: 79-89-5480gjmwgyimfbMMEAXRW D KATKOFacility:I9Kcffx: 07-06-2022 End: 46-49-9449uvkgojvbsfEE NONE LISTED REQUESTFacility:V5Ltlas: 07-02-2022 End: 63-88-2937farbfhzyoxHgejij Anguiano Other [employer] Other Start: 18-75-5954Wfkwnz outpatient visit 15 minutes [facility] ClinicStart: 05-18-2022 End: 98-21-3745kctfsjmhlcSjgouu Anguiano Other [employer] Other Start: 80-77-8222Sgactsfxf encounterMarcia Estela [facility] ClinicStart: 05-17-2022 End: 83-50-6780scookcpoqiQpyrbo Anguiano Other [employer] Other Start: 60-12-8394Wcunluevx encounterMarciloretta Fox Medical ClinicStart: 40-82-9507Jnfgxn outpatient visit 15 minutesMarli [facility] Medical ClinicStart: 05-11-2022 End: 41-04-9430akdpnwjwrrVU EVARISTO [place] [employer] Other Start: 05-01-2022 End: 87-08-5347pzgdokwlatXnigcy Anguiano Other [employer] Other Start: 24-26-3732Wpswaydzv encounterMarciloretta Fox Medical ClinicStart: 04-05-2022 End: 21-60-2439fndqmbxagiPrieja Anguiano Other [employer] Other Start: 85-28-2050Czqwwh outpatient visit 15 minutes [facility] ClinicStart: 10-16-2021 End: 15-24-4149Sxzlpdhsa to same day surgery centerMD Evaristomitra Anguiano Work Phone: [facility] CampusStart: 10-12-2021 End: 27-72-9139Mglcnnj encounter procedureMD Evaristo Anguiano Work Phone: [facility] Lka-Rzk-Eaaqtmrk Testing Start: 10-06-2021 End: 02-42-0493Sjjtalp encounter procedureMD Evaristo Anguiano Work Phone: [facility] Gkn-Fri-Dqkmiwki Testing Start: 08-31-2021 End: 24-76-6130Oikrzzrw ReferredMD Evaristo Anguiano Work Phone: [facility] Ctr-Lab Main CampusStart: 08-29-2021 End: 93-95-8706Lespoah encounter procedureMD Evaristo Anguiano Work Phone: [facility] Ctr-XRay Main [place] Procedures DateProcedureProcedure DetailPerforming ClinicianStart: 80-09-6148Avjfdsmmxos Papito Tripp Comment on above:poor prep, diverticulosis t/oStart: 71-33-5860Wlvqekekbdat fundoplicationMD Evaristo Anguiano Work Phone: Start: 69-86-8409Uoicob hernia (disorder)Papito Tripp Start: 94-20-8111DubimhstizvOwhctmy Qasim Start: 30-45-5720Tearp region structure (body structure)Papito Tripp Start: 79-09-3150Hkmoqnamtsp structure (body structure) SeeToojeovany Tripp Tonsillar structure (palatine) (body structure)Papito Tripp Plan of Treatment DateCare ActivityDetailAuthorStart: 20-09-6393Xnpydaa referralPeoples Hospital Work Phone: Start: 41-23-8309Pvddkioljjenak of prophylactic treatmentPeoples Hospital Work Phone: Start: 35-84-0556EwvmeucdtPeoples Hospital Work Phone: Start: 22-07-6570RpvmhiwdxMer[facility] Comprehensive metabolic 1999 panel - Serum or PlasmaMercy Health [facility] Regional Medical CenterComprehensive metabolic 2000 panel - Serum or PlasmaMercy Health [facility] Medical CenterEKG 12 channel panelMercy Health [facility] Regional Medical CenterEKG 12 channel panelMercy Health [facility] Regional Medical CenterMG Breast - bilateral Screening [facility] CenterPatient referralTrinity [facility] Work Phone: US Heart TransthoracicMercy Health Springfield Regional Medical CenterUS.doppler Carotid arteries - bilateralMercy Health Springfield Regional Medical CenterXR Shoulder - right ViewsLucile [facility] Immunizations Immunization DateImmunizationNotesCare KqyqxojnRluoerfu56-59-8601qzfcxrxgi virus vaccine, unspecified formulationMohamad Mouchli [phone]-DrokgCincinnati Children'S Hospital [facility] Center11-22-2022 COVID-19 Pfizer (Pediatric)Evaristo Anguiano Other [facility]11-22-2022SARS-CoV-2 (COVID-19) mRNAMUL.ORD![id number] Mouchli 733-2654Pbjmio-PnczhCincinnati Children'S Hospital Medical Center09-21-2022 influenza virus vaccine, split virus (incl. purified surface antigen)Evaristo Anguiano Other [employer] Other [id number] virus vaccine, unspecified formulationMohamad Mouchli 429-2885Ixofzh-GjnpyOhiohealth [facility] Hospital Digestive Imxdui20-41-4051 influenza virus vaccine, split virus (incl. purified surface antigen)Evaristo Anguiano Other [employer] Other [id number] virus vaccine, unspecified formulationMohamad Mouchli 046-9720Elxcsf-SxzjjOhiohealth [facility] Hospital Digestive Viitev19-73-4149 COVID-19 mRNA, Comirnaty (Pfizer)MD Evaristo Anguiano Work Phone: [facility] CenterComment on above: Result Comment: 2023-05-23: [id number]-39 Delmar Petit (Pfizer)MD Evaristo Anguiano Work Phone: [facility] CenterComment on above: Result Comment: 2023-05-23: [id number]-21 mRNADelmar (Pfizer)MD Evaristo Anguiano Work Phone: [facility] CenterComment on above: Result Comment: 2023-05-23: IJE0772-29-9379ddbwqhick virus vaccine, unspecified formulationMohamad Mouchli 348-3641Kvezaq-IrojyOhiohealth [facility] Hospital Digestive Nmbdsm53-06-7472 influenza virus vaccine, unspecified formulationMohamad Mouchli [phone]-DqlofCincinnati Children'S Hospital Medical Center11-09-2018 pneumococcal polysaccharide vaccine, 23 valentMarcia Anguiano Other 361-0890Qwolra-KzwvgCincinnati Children'S Hospital Medical Center10-29-2018 influenza virus vaccine, unspecified formulationMohamad Mouchli 328-7816Uszjti-SrgskCincinnati Children'S Hospital Medical Center10-30-2017 influenza virus vaccine, unspecified formulationMohamad Mouchli 241-2966Zbrofg-LhovcCincinnati Children'S Hospital Medical Center10-30-2017 pneumococcal conjugate vaccine, 13 valentMarcia Anguiano Other 001-6326Dsmgkn-GzhbxOhiohealth [facility] Hospital [facility] Payers DatePayer CategoryPayerPolicy [id number]-zik [id number] [id number] [id number] [id number] 2.16.840.1.841184.3.57[id number] 2.16.840.1.5[id number] 2.16.840.1.824458.3.579.2.593 Social History DateTypeDetailFacilityStart: 10-06-2021 End: 44-71-1085Vqdhudv smoking status NHISNever smoked tobacco (finding) [facility]: 56-73-1384Asm [facility] At [facility]: 05-26-2024 End: 40-80-7202RqqIpsrgr (finding)[facility] Goals DatePatient GoalDesired Activity/State Functional Status XuufRnqgfyulhpOiuuuuTlcpaztx40-38-7293Rliiwgjgwj StatusN/[facility] Dig[facility]ive Bcdvry26-15-7677Gjvrmfdxvf StatusN/[facility]03-04-2024Functional StatusN/[facility] 59-83-2014Ukuebxsurs statusPatient at BaselinePeoples Hospital Work Phone: Mental Status MjahHsyhoxsxasNyzcqbXtifzhzd55-66-0549Zojepjxpo functionCognitive Status [facility] at [facility]Pe[facility] Work Phone: Clinical Notes 06-01-2020 to 02-01-2025 Note Date & ZjleNvxqDpuvtbha32-09-2733 NoteSubjective Patient ID: Maritza Espino is a 79 y.o. female who presents for New Patient (Patient is here today to establish care with cardiology per Dr. Anguiano's request. Patient states she wore a heart monitor which showed fast heart rate. Patient states she was a picnic in Oct 2024 and passed out. Patient was brought to [facility] for evaluation. Patient denies, chest pain, SOB/MARTINEZ, palpitation/racing heart, edema, dizziness/lightheaded.), Hypertension, and SVT. Passed out at a yazidism picnic Were outside, everything turned black. In October. Had arisen to take communion and took a few steps. Never happened before. Got a heart monitor. I personally reviewed: a few non-sustained SVT runs (minimal beats). There did appear to be at least on sinus rhythm with ST elevation (non diagnostic) No chest pains or palpitations. Has an irregular heart beat, never feels it. Says 150s this morning. However, usually systolic bp in low 130s. Hypertension Pertinent negatives include no chest pain, palpitations or shortness of breath. Review of Systems Respiratory: Negative for chest tightness and shortness of breath. Cardiovascular: Negative for chest pain, palpitations and leg swelling. Gastrointestinal: Negative for blood in stool. Genitourinary: Negative for hematuria. Neurological: Positive for syncope. Negative for dizziness, seizures and light-headedness. Psychiatric/Behavioral: Negative for agitation and confusion. Objective Visit Vitals BP (!) 181/92 (BP Location: Right arm, Patient Position: Sitting) Pulse 78 Physical Exam Constitutional: Appearance: Normal appearance. She is normal weight. HENT: Head: Normocephalic and atraumatic. Cardiovascular: Rate and Rhythm: Normal rate and regular rhythm. No extrasystoles are present. Chest Wall: PMI is not displaced. No thrill. Pulses: Normal pulses. Carotid pulses are 2+ on the right side and 2+ on the left side. Radial pulses are 2+ on the right side and 2+ on the left side. Heart sounds: Normal heart sounds. No murmur heard. No friction rub. No gallop. Pulmonary: Effort: Pulmonary effort is normal. Breath sounds: Normal breath sounds. Musculoskeletal: Right lower leg: No edema. Left lower leg: No edema. Skin: General: Skin is warm and dry. Neurological: General: No focal deficit present. Mental Status: She is alert and oriented to person, place, and time. Psychiatric: Mood and Affect: Mood normal. Behavior: Behavior normal. Thought Content: Thought content normal. Judgment: Judgment normal. Assessment/Plan Ms. Espino had a syncopal episode while outside at a [address] [employer] I service when arising from sitting to standing and is likely vasovagal in origin. I personally reviewed images of her event monitor and there are a few brief (<10 beat) runs of SVT which I don't believe are the cause. However, at least once there appears to be ST elevation in both leads of the monitor during sinus rhythm which could represent either artifact or silent ischemia. Given age, smoking history and hypertension, will obtain nuclear exercise stress test. Regarding hypertension, I have discussed with her the importance of good blood pressure control which she voices understanding and is following with you. Diagnosis Plan 1. Vasovagal syncope 2. Primary hypertension 3. Abnormal EKG 4. Paroxysmal supraventricular tachycardia No orders of the defined types were placed in this encounter. No results found for this or any previous visit (from the past 36 hours). Follow up in about 4 weeks (around 03/01/2025).[facility]07-28-2025 Evaluation note* Diagnosis Onset Date Resolution Status Admit Date CLL (chronic lymphocytic leukemia) acuteJuly 2024 9:49amEssential hypertensionacuteJuly 2024 9:49am Family history of diabetes mellitusacuteJuly 2024 9:49amMedicare annual wellness visit, subsequentacuteJuly 2024 9:49amScreening mammogram for breast canceracuteJuly 2024 9:49amEssential hypertensionacuteAugust 2024 11:19amSyncopeacuteAugust 2024 11:19am [facility] Work Phone: 1(675) 708-195106-20-2025 Evaluation note* Diagnosis Onset Date Resolution Status Admit Date Urticaria of unknown origin acuteJune 2024 9:03amShingles rashacuteJune 2024 2:00pmFamily history of diabetes mellitusacuteJuly 2024 9:49amScreening mammogram for breast canceracuteJuly 2024 9:49am [facility] Work Phone: 1(950) 115-737906-20-2025 Evaluation note* Diagnosis Onset Date Resolution Status Admit Date Urticaria of unknown origin acuteJune 2024 9:03amShingles rashacuteJune 2024 2:00pmCLL (chronic lymphocytic leukemia)acuteJuly 2024 9:49amEssential hypertensionacuteJuly 2024 9:49amFamily history of diabetes mellitusacuteJuly 2024 9:49am Medicare annual wellness visit, subsequentacuteJuly 2024 9:49amScreening mammogram for breast canceracuteJuly 2024 9:49amEssential hypertension acuteAugust 2024 11:19am [facility] Work Phone: 1(591) 744-633006-20-2025 Evaluation note* Diagnosis Onset Date Resolution Status Admit Date Urticaria of unknown origin acuteJune 2024 9:03amShingles rashacuteJune 2024 2:00pmCLL (chronic lymphocytic leukemia)acuteJuly 2024 9:49amEssential hypertensionacuteJuly 2024 9:49amFamily history of diabetes mellitusacuteJuly 2024 9:49am Medicare annual wellness visit, subsequentacuteJuly 2024 9:49amScreening mammogram for breast canceracuteJuly 2024 9:49amEssential hypertension acuteAugust 2024 11:19amSyncopeacuteAugust 2024 11:19am [facility] Work Phone: 1(295) 447-182603-24-2025 [facility] [place] [address] Cancer Center Note Signed Patient: Maritza Espino MR#: [id number] 1524 : 1945 Acct:[id number] Age/Sex: 79 / F Type: REG AMB [...] well. She followed initially with me at [facility] and then Dr. Beckett at [facility] and now she is following with [...] follows with Dr. Evaristo Anguiano, lives in [place]. she is on a steroid for a [...] 09:11 5 Dictated By: Frederick Perez II, DD/ 1019 Signed By: 06/15/24 1044 [facility]03-04-2025 Evaluation note* Diagnosis Onset Date Resolution Status Admit Date Essential hypertension acuteMarch 2024 1:09pmGERD without esophagitisacuteMarch 2024 1:09pm Irregular heart rateacuteMarch 2024 1:09pmCLL (chronic lymphocytic leukemia)acuteMarch 2024 10:11amHiatal herniaacuteMarch 2024 10:11am [facility] Work Phone: 1(345) 934-197604-17-2024 Evaluation + Plan noteExtracted from:Title: ANES Post-operative Note - GeneralAuthor:Darius Nelson Jr., DO GDate:07/10/23 Plan Transfer/Discharge: Transfer/Discharge Discharge when meets criteria ( From PACU to Ambulatory Surgery Unit, and To home ). Extracted from:Title:ANES Pre-operative Note - EndoAuthor:Darius Nelson Jr., DO GDate:07/10/[address] [place] [employer]hesi[employer] (ASA) physical status classification: Class III. Anesthetic Preoperative Plan: Anesthesia General, and -TIVA. Future Scheduled Tests Laboratory* Calprotectin, Fecal 06/24/23 * Fecal WBC Lactoferrin 06/24/23 * Giardia lamblia, Direct Detection EIA 06/24/23 * O & P Exam, Routine 06/24/23 * Rotavirus Ab 06/24/23 * Clostridium Difficile PCR 06/24/23 * Enteric Panel by PCR 06/24/23 [facility]04-17-2024 Hospital Discharge instructions Patient Education 07/10/2023 11:13:46 Colonoscopy, Care After Surgery Salam (CUSTOM) Colonoscopy Care After Surgery Please read the instructions outlined below and refer to this sheet in the next few weeks. These discharge instructions provide you with general information on [facility] Your doctor may also give you specific [...] 3 times a day. General instructions Take [id number] and prescription medicines only as told by [...] provider. Document Revised: 09/20/2021 Document Reviewed: 09/20/2021 [employer] Patient Education 2022 [employer]. 07/10/2023 11:13:46 Diverticulosis MAGR (CUSTOM) Diverticulosis Many [...] unsweetened, w/added ascorbic acid 1 cup 0.5 Isabela 1 cup 0.7 Vegetables Cooked Green beans 1 cup 4.0 Carrots 1/2 cup sliced 2.3 Peas 1 cup 8.8 Potato (baked, with skin) 1 medium potato 3.8 Raw [place] (with peel) 1 cucumber 1.5 Lettuce 1 [...] 8.7 Peanuts 1/2 cup 7.9 Chart from [facility] 2013. SEEK IMMEDIATE MEDICAL CARE IF: You [...] Reference. Available at http://www.nal.usda.gov/fnic/foodcomp/search/. Information adapted from: [employer] Patient Information 2009 [employer]. [employer] 2012 http://www.Realm/contents/vatfqxhszgvq-fsxiius-rlpntx-the-basics Follow Up Care 07/02/2023 08:30:53 With:Papito Tripp Address: [address] [place] [address] [place] [phone] Business (1) When: Unknown Comments:office wll call for follow up [facility]04-01-2024 Evaluation + Plan note Future Scheduled Tests Laboratory* Calprotectin, Fecal 06/24/23 * Fecal WBC Lactoferrin 06/24/23 * Giardia lamblia, Direct Detection EIA 06/24/23 * O & P Exam, Routine 06/24/23 * Rotavirus Ab 06/24/23 * Clostridium Difficile PCR 06/24/23 * Enteric Panel by PCR 06/24/23 [facility] 01-30-2024 Evaluation note* Encounter Date Diagnosis Assessment Notes Treatment Notes Treatment Clinical Notes Mar, Acute diarrhea (ICD-10 - R19.7) Trial of levsin, pt requests referral to [email or web address] Other 01-23-2024 Evaluation note* Encounter Date Diagnosis Assessment Notes Treatment Notes Treatment Clinical Notes Mar, Acute diarrhea (ICD-10 - R19.7) advised taking Imodium 1-2x daily and resuming normal rather than a BRAT diet. Will call her on 04/18 and check on her symptoms. Pt agrees she feels well, except when she has to use BR suddenly. She was transferred to [place] in January and she is concerned this is related to a recurrance of that problem. [employer] Other 11-20-2023 Evaluation note* Encounter Date Diagnosis Assessment Notes Treatment Notes Treatment Clinical Notes Jan, Pneumatosis intestinalis (ICD-10 - K63.89) Completely resolved. Reviewed notes from [facility]. Pt is back to a normal diet and activity Jan,hronic lymphocytic leukemia (ICD-10 - C91.10)WBC remains elevated. She has reviewed results w her Oncologist. Condition is Jan,Essential hypertension (ICD-10 - I10)Blood pressure remains well controlled at this time. Denies cardiac symptoms. Shows no signs or symptoms or poor control. Patient to continue with above medication and we will continue to monitor. Advised to pay attention to body and symptoms. Any developing patterns. Stay well hydrated. [employer] Other 10-10-2023 Evaluation note* Encounter Date Diagnosis [...] symptoms. Any developing patterns. Stay well hydrated. Dec,Screening mammogram for breast cancer (ICD-10 - Z12.31) Dec,LL (chronic lymphocytic leukemia) (ICD-10 - C91.10)WBC 16.5 in June. Scheduled w hematology in spring. Continue to monitor levels. Dec,aresthesia of skin (ICD-10 - R20.2)Continues with tingling in hands. Labs from spring reviewed. States the problem is intermittent and no worse. Continue daily MVI. [employer] Other 05-31-2023 NotePROCEDURE: XR ELBOW LT MIN 3 VIEWS HISTORY: Pain ; acute left elbow pain; no known injury COMPARISON: None. FINDINGS: BONES:No fracture, acute abnormality, or significant arthropathy. SOFT TISSUES:No visible soft tissue swelling. EFFUSION:None visible. OTHER: Negative. IMPRESSION: 1. No acute bone abnormality or significant degenerative joint disease. Electronically authenticated by: JUMANA YBARRA Date: 2022-08-22 09:05[facility]05-31-2023 NotePROCEDURE: XR ANKLE RT MIN 3 VIEWS [...] Electronically authenticated by: JUMANA YBARRA Date: 2022-08-22 09:01[facility]04-10-2023 Evaluation note* Encounter Date Diagnosis Assessment Notes Treatment Notes Treatment Clinical Notes Jun, GERD without esophagitis (ICD-10 - K21.9) Reflux symptoms remain unchanged. Discussed the importance of meal content. They should avoid overeating and eating meals late in the evening. Take medication as directed and we will continue to monitor. Pt agrees to switch from zantac to prilosec. Jun,Essential hypertension (ICD-10 - I10)chronic - stable on present med. [employer] Other 02-24-2023 Evaluation note* Encounter Date Diagnosis Assessment Notes Treatment Notes Treatment Clinical Notes Apr, Paresthesia (ICD-10 - R20.2) [employer] Other 02-17-2023 Evaluation note* Encounter Date Diagnosis Assessment Notes Treatment Notes Treatment Clinical Notes Apr, Paresthesia of skin (ICD-10 - R2 0.2) will start by ruling out metabolic problems. Apr,ain in unspecified limb (ICD-10 - M79.609) Apr,LL (chronic lymphocytic leukemia) (ICD-10 - C91.10)chronic problem. Monitors WBC and does not presently followup with oncology Apr,Essential hypertension (ICD-10 - I10)stable. continue present meds. Due for labs. [employer] Other 01-12-2023 Evaluation note* Encounter Date Diagnosis Assessment Notes Treatment Notes Treatment Clinical Notes Mar, Essential hypertension (ICD-10 - I10) Reviewed medications encouraged exercise. We will switch Toprol to losartan. At low dose. Patient to return in 1 month for nurse visit for blood pressure check. Mar,Inflamed skin tag (ICD-10 - L91.8)Verbal consent obtained. Inflamed skin tag treated with cryo freeze with good results. Patient tolerated procedure well. Post care instructions given [employer] Other 07-26-2022 Progress note Author Sherwin Yepez [facility] October 17, 2021 8:28amNote Date/TimeJuly 2021 8:28[place] [address] General Surgery Progress Note Signed Patient: Maritza Espino MR#: [id number] 1524 : 1945 Acct:[id number] Age/Sex: 76 / F Adm Date: 2 Loc: 4 Room: 2J5296-7 Type : REG SDC Attending Dr: Sherwin [...] nasal spray,suspension 2 spray intranasal DAILY PRN AllergySymptoms 10/06/21 [History Confirmed 10/16/21] Active Medications Enoxaparin Sodium (Enoxaparin 40 Mg/0.4 Ml Syringe) 40 mg SUBCUT DAILY@1000 [facility] Stop: 10/17/22 09:59 Famotidine (Famotidine/Pf [...] Kcl) 1,000 mls @ 80 mls/hr IV .[id number] [facility] Stop: 10/16/22 17:07 Last Admin: [...] She is conversive pleasant lucid comfortable. Heart isregular rate. Lungs are clear. Abdomen is soft [...] % (Auto) 64.8, Lymph % (Auto) 28.9, [place] % (Auto) 5.9, Eos % (Auto) 0.0, Baso % (Auto) 0.4, Neut # (Auto) 12.7 H, Lymph # (Auto) 5.7 H, [place] # (Auto) 1.2 H, Eos # (Auto) [...] signed by DO Sherwin Yepez> 10/17/21 0828 [facility] Work Phone: 1(683) 446-955803-10-2021 NoteHNO ID: [id number] Author: Andrei Mario Service: ? Author Type: Physician Type: Progress Notes Filed: 06/01/2020 10:13 AM Note Text: NAME: Maritza Espino CLINIC NO.: [id number] DATE OF SERVICE: June 01, 2020 Some [...] Pattern LSI BETHEL (11q22.3): Normal Pattern LSI [id number] (13q14): Normal Pattern CEP 12: Normal Pattern LSI LAMP1 (13q34): Normal Pattern IGH/CCND1 t(11;14)(q13;q32): Negative INTERPRETATION: There is a normal pattern of hybridization with each of the probes tested. 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 1. 11/21/2016 Peripheral blood Flow Cy: Specimen originated from [facility] Specimen #: [id number] Submitting Physician: FREDERICK PEREZ II, DO SPECIMEN [...] area is 1.57 meters (more content not included)...[facility] + Plan note No data available for this section [facility] Evaluation noteNo assessment information available [facility] Work Phone: Evaluation note* Diagnosis Onset Date Resolution Status Hiatal hernia acute [facility] Work Phone: Evaluation noteNo InformationN[employer] Other Evaluation note* Diagnosis Onset Date Resolution Status CLL (chronic lymphocytic leukemia) acuteHiatal herniaacute [facility] Work Phone: Evaluation note* Diagnosis Onset Date Resolution Status CLL (chronic lymphocytic leukemia) acuteContact dermatitisacuteIrregular heart rateacuteCLL (chronic lymphocytic leukemia)acuteCLL (chronic lymphocytic leukemia)acuteHiatal herniaacute [facility] Work Phone: Evaluation note* Diagnosis Onset Date Resolution Status CLL (chronic lymphocytic leukemia) acuteContact dermatitisacuteIrregular heart rateacuteCLL (chronic lymphocytic leukemia)acuteCLL (chronic lymphocytic leukemia)acuteHiatal herniaacuteCLL (chronic lymphocytic leukemia)acuteEssential hypertensionacuteWeight lossacute [facility] Work Phone: Evaluation note* Diagnosis Onset Date Resolution Status Right shoulder pain acute [facility] Work Phone: Evaluation note* Diagnosis Onset Date Resolution Status Admit Date Essential hypertension acuteMarch 2024 1:09pmGERD without esophagitisacuteMarch 2024 1:09pm Irregular heart rateacuteMarch 2024 1:09pm [facility] Work Phone: History general Narrative - Reported* Type Description Date Medical History sinusitis, bacterial Medical Historyosteoporosis, postmenopausalMedical Historyessential hypertension Medical Historylarge hiatial herniaMedical Historyweight lossMedical History claudicationMedical Historygeneralized anxietyMedical Historyirritable bowel syndrome with diarrheaMedical Historyanxiety tension stateMedical Historychronic lymphocytic leukemiaMedical Historyvaginal atrophySurgical History cholecystectomyurgical HistoryT&ASurgical Historylaceration with foreign body right thumbSurgical Historyhernia repairHospitalization Historysee above [employer] Other Histszz general Narrative - Reported* Type Description Date Medical History sinusitis, bacterial Medical Historyosteoporosis, postmenopausalMedical Historyessential hypertension Medical Historylarge hiatial herniaMedical Historyweight lossMedical History claudicationMedical Historygeneralized anxietyMedical Historyirritable bowel syndrome with diarrheaMedical Historyanxiety tension stateMedical Historychronic lymphocytic leukemiaMedical Historyvaginal atrophySurgical History cholecystectomyurgical HistoryT&ASurgical Historylaceration with foreign body right thumbSurgical Historyhernia repairHospitalization History[facility] [employer] Other Hospital Discharge instructions No data available for this section [facility] Hospital Discharge instructionsAmbulatory Orders* Referral to Gastroenterology Time Frame: 05/26/24, Location: None Selected [facility] Work Phone: Progrnld note No data available for this section [facility] Progress note Author Frederick Perez [facility] June 17, 2023 10:54amNote Date/TimeMarch 2023 10:26[facility] [place] [address] Cancer Center Note Signed Patient: Maritza Espino MR#: [id number] 1524 : 1945 Acct:[id number] Age/Sex: 78 / F Type: REG AMB [...] well. She followed initially with me at [facility] and then Dr. Beckett at [facility] and now she is following with [...] follows with Dr. Evaristo Anguiano, lives in [place]. she is on a steroid for a [...] by Frederick Perez II, DO> 06/17/23 1054 [facility] Work Phone: Progress note Author Frederick Perez [facility] CenterNote Date/TimeMarch 2024 10:44[facility] [place] [address] Cancer Center Note Signed Patient: Maritza Espino MR#: [id number] 1524 : 1945 Acct:[id number] Age/Sex: 79 / F Type: REG AMB [...] well. She followed initially with me at [facility] and then Dr. Beckett at [facility] and now she is following with [...] follows with Dr. Evaristo Anguiano, lives in [place]. she is on a steroid for a [...] 09:11 5 Dictated By: Frederick Perez II, DD/ 1019 Signed By: <Electronically signed by Frederick Perez II, DO> 06/15/24 1044 [facility] Work Phone: Reason for referral (narrative)* Reason Pt has family i n Josh, Admitted to [facility] in the fall, discharge summary scanned in; diarrhea, bowel changes; did not have a colonoscopy in the fall Diagnosis 1 Acute diarrhea (R19. 7) Referral Organization [facility] mar[facility]o Referring Provider First Name Evaristo Referring Provider Last Name Annmarie Referring Provider Specialty Family Medi cine Referred Organization [facility] Referred Provider Naty Belle Referred Address [address] [place] [id number] Referred Provider Specialty Gastroentero logy Referral Priority Routine General Notes Colleenjulius Silvia 10:15:03 AM >received today, attachments made, waiting for notes to be locked. [employer] Other Reason for referral (narrative)No reason for referral information available[facility] Work Phone: Summary Purpose Family History No Family History Records Found Relationship Condition Age at Onset Recorded Date/T elieser Not Specified Malignant neoplasm of breast Unknown fatherCoronary artery diseaseUnknown Relationship Condition Age at Onset Recorded Date/T elieser Not Specified Malignant neoplasm of breast Unknown fatherCoronary artery diseaseUnknownbrotherHypertensionUnknownDiabetes mellitus UnknownfatherHeart diseaseUnknownDeceasedUnknownNot SpecifiedHeart disease UnknownMalignant neoplasmUnknownsisterHypertensionUnknown Relationship Condition Age at Onset Recorded Date/T elieser mother Malignant neoplasm of breast Unknown fatherCoronary artery diseaseUnknownbrotherHypertensionUnknownDiabetes mellitus UnknownfatherHeart diseaseUnknownDeceasedUnknownmotherHeart diseaseUnknown Malignant neoplasmUnknownsisterHypertensionUnknown Advance Directives No Advanced Directives Records Found [...] K44.9 R10.12 Hiatal Hernia Hiatal Hernia Hiatal HerniaReason for VisitHiatal hernia Chief Complaint Bowel Issues-Diarrhe a Continued Diarrhea early stage CLL rashReason for VisitCLL (chronic lymphocytic leukemia) Hiatal hernia Chief Complaint Bowel Issues-Diarrhe a Continued Diarrhea rash early stage CLLReason for VisitCLL (chronic lymphocytic leukemia) Contact dermatitis Irregular heart rate CLL (chronic lymphocytic leukemia) CLL (chronic lymphocytic leukemia) Hiatal hernia Chief Complaint Bowel Issues-Diarrhe a Continued Diarrhea rash early stage CLL 6 Month Check UpReason for VisitCLL (chronic lymphocytic leukemia) Contact dermatitis Irregular heart rate CLL [...] 19, 2024 9:49am [place] [facility] October 19, 20[place] 9:49am Screening mammogram [...] 11:19am Syncope November 11, 2024 11 :19am Chief Complaint Admit Date wellness October 19, 2024 9:49 am Amb Documentation October 26, 2024 10: 35am [facility] ER f/u November 11, 2024 11 :19am ZIO November 27, 2024 8:46am Amb Documentation December 31, 2024 2: 46pm BP Checkup/follow up January 14, 2025 9:13am Reason for Visit Admit Date CLL (chronic lymphocytic leukemia) October 19, 2024 9:49am Essential hypertension October 19, 2024 9 :49am Family history of diabetes mellitus October 19, 2024 9:49am Medicare annual wellness visit, subseque nt October 19, 2024 9:49am Screening mammogram for breast cancer Ju ly 2024 9:49am Essential hypertension November 11, 2024 11:19am Syncope November 11, 2024 11 :19am Reason for Referral Reason 06/25/22 [place] office, Last OV and labs. Will also scan in labs from last year to send along. Thank you Diagnosis 1 Paresthesia (R20.2) Referral Organization [facility] Referring Provider First Name Evaristo Referring Provider Last Name Annmarie Referring Provider Specialty Family [facility] Referred Organization [facility] Referred Provider Sharon Davila Referred Address [address] [place], [place],[phone] Referred Provider Specialty Neurology Referral Priority Routine Referral Appointment Date 2022-06-25 General Notes Silvia Pereira 11:05:24 AM >received today, attachments made, form filled out, referral faxed Silvia Pereira 05/31/2022 10:06:11 AM >faxed first attempt letter Silvia Pereira 06/05/2022 08:49:35 AM >RECEIVED FAX WITH APPT DATE Additional Source Comments INFORMATION SOURCE (unrecogn ized section and content) DATE CREATED AUTHOR 04/26/2021 [facility] DATE CREATED AUTHOR AUTHOR'S ORGANIZ ATION 08/31/2022 [facility] DATE CREATED AUTHOR AUTHOR'S ORGANIZ ATION 06/12/2024 [facility] DATE CREATED AUTHOR AUTHOR'S ORGANIZ ATION 07/27/2024 [facility] DATE CREATED AUTHOR AUTHOR'S ORGANIZ ATION 02/02/2025 [facility] Care Teams (unrecognized sec tion and content) Team Status: Inactive Member Role Status Dates Evaristo Anguiano MD Primary Care Provider Active Zaheer Pottsending ProviderActive Team Status: Active Member Role Status Dates [...] Active Start: June 12, 2023 Eugenio Beckett MDReferring ProviderActiveStart: June 12, 2023 Evaristo Anguiano , MDPrimary Care ProviderActiveStart: June 12, 2023 Team Status: Inactive Member Role Status Dates Evaristo Anguiano MD Primary Care Provide r, Attending Provider Active Start: June 13, 2023 End: June 13, 2023 Team Status: Inactive Member Role Status Dates Evaristo Anguiano MD Primary Care Provider Active Start: June 17, 2023 End: June 17, 2023Frederick Perez II, DOAttending ProviderActiveStart: June 17, 2023 End: June 17, 2023 Team Status: Active Member Role Status Dates Frederick Perez II, DO Attending Provider Active Start: June 17, 2023 Eugenio Beckett , MDReferring ProviderActiveStart: June 17, 2023 Evaristo Anguiano , EMILYrimary Care ProviderActiveStart: June 17, 2023 Team Status: Active Member [...] 2024 Team Status: Inactive Member Role Status Humberto Anguiano MD Primary Care Provider Active Start: June 15, 2024 End: June 15, 2024Frederick Perez II, DOAttending ProviderActiveStart: June 15, 2024 End: June 15, 2024Kala Mercado Care ProviderActiveStart: June 15, 2024 Team Status: Inactive Member Role Status Dates Evaristo Anguiano MD Primary Care Provider Active Start: September 11, 2024 End: September 11, 2024Evaristo Anguiano MDAttending ProviderActiveStart: September 11, 2024 End: September 11, 2024 Team Status: Inactive Member Role Status Humberto Anguiano MD Primary Care Provider Active Start: September 15, 2024 End: September 15, 2024Evaristo Anguiano MDAttending ProviderActiveStart: September 15, 2024 End: September 15, 2024 Team Status: Inactive Member Role Status Dates Evaristo Anguiano MD Primary Care Provider Active Start: October 19, 2024 End: October 19, 2024Evaristo Anguiano MDAttending ProviderActiveStart: October 19, 2024 End: October 19, 2024 Team Status: Active Member Role Status Humberto Anguiano MD Primary Care Provider Active Start: October 25, 2024 Jason Mott DOAttending ProviderActiveStart: October 25, 2024 Team Status: Active Member Role Status Humberto Anguiano MD Primary Care Provider Active Start: October 26, 2024 Jade Mott CMAAttending ProviderActiveStart: October 26, 2024 Team Status: Inactive Member Role Status Humberto Anguiano MD Primary Care Provider Active Start: November 11, 2024 End: November 11, 2024Evaristo Anguiano MDAttending ProviderActiveStart: November 11, 2024 End: November 11, 2024 Team Status: Inactive Member Role Status Humberto Anguiano MD Primary Care Provider Active Start: November 27, 2024 End: November 27, 2024Evaristo Anguiano MDAttending ProviderActiveStart: November 27, 2024 End: November 27, 2024 Team Status: Active Member Role/Relationship Status Humberto Anguiano MD Primary Care Provider Active Team Status: Inactive Member Role/Relationship Status Humberto Anguiano MD Primary Care Provider Active Start: October 19, 2024 End: October 19, 2024Evaristo Anguiano MDAttending ProviderActiveStart: October 19, 2024 End: October 19, 2024 Team Status: Active Member Role/Relationship Status Humberto Anguiano MD Primary Care Provider Active Start: October 25, 2024 Jason Mott DOAttending ProviderActiveStart: October 25, 2024 Team Status: Active Member Role/Relationship Status Dates Evaristo Anguiano MD Primary Care Provider Active Start: October 26, 2024 Jade Pantera CMAAttending ProviderActiveStart: October 26, 2024 Team Status: Inactive Member Role/Relationship Status Dates Evaristo Anguiano MD Primary Care Provider Active Start: November 11, 2024 End: November 11, 2024Maryam Mercado ProviderActiveStart: November 11, 2024 End: November 11, 2024 Team Status: Inactive Member Role/Relationship Status Dates Evaristo Anguiano MD Primary Care Provider Active Start: November 27, 2024 End: November 27, 2024Maryam Mercado ProviderActiveStart: November 27, 2024 End: November 27, 2024 Team Status: Active Member Role/Relationship Status Dates Evaristo Anguiano MD Primary Care Provider Active Start: December 31, 2024 Teresita Jyoti Fuchsending ProviderActiveStart: December 31, 2024 Team Status: Inactive Member Role/Relationship Status Dates Evaristo Anguiano MD Primary Care Provider Active Start: January 14, 2025 End: January 14, 2025Maryam Mercado ProviderActiveStart: January 14, 2025 End: January 14, 2025 Goals (unrecognized section and content) Goals may [...] nformationtoes/fingers numblabslabs3 month Follow up6 month Follow [email or web address].[facility] Issues- Diarrheacontinued diarrheamessage FOR RECORDS PERTAINING TO [...] BE BASED ON THE PRIMARY CLINICAL RECORDS. [facility], [facility]. provides no warranty or guarantee of the accuracy or completeness of information in this document.
--- NOTE | 2025-02-10 12:40 | PM.STRESS ---
Stress Test Stress Test Allergies Allergy/AdvReac Type Severity Reaction Status Date / Time amoxicillin Allergy Unknown Unknown Verified 10/25/24 15:26 Requesting physician: LINSEY CABEZAS Procedure: Treadmill nuclear stress test with Cardiolyte injection General Information: Reason for Stress Test: [ST elevation on EKG] Cardiac History and Risk Factors: [Hypertension] Resting 12 - Lead Electrocardiogram: Normal sinus rhythm Rightward axis Borderline ECG Stress Test: Protocol: [Nader protocol; the patient exercised for 3 minutes and 23 seconds reaching stage one of the Nader protocol and achieving 4.60 METS. Resting heart rate 82 bpm, peak heart rate 125 bpm; this is 87% of predicted maximum heart rate. Resting blood pressure 144/90 with a peak blood pressure of 188/86. The test was terminated due to achievement of target heart rate and fatigue.] Exercise Capacity: [Fair] Blood Pressure Response: [Resting hypertension, appropriate response] Rhythm: [Sinus with premature ventricular contractions] ST - Response: [No significant ST abnormalities] Patient Response: [No chest pain] Interpretation: 1. No ischemic EKG changes seen on treadmill exercise stress test. 2. Appropriate heart rate and blood pressure response to exercise. 3. Premature ventricular contractions noted. 4. [place] Treadmill Score: +3.2. Estimated 1-Year Mortality: 1.0-1.1 %. Risk Category: Moderate Risk. Angiography: May be indicated. 5. Nuclear images to be read, interpreted, and reported separately.
== END 2025-02-09 09:41 | disposition home or self-care (01) ==
LOC: NM 09:40
PROVIDERS: PCP Family Medicine; Visit Provider Internal Medicine Cardiovascular Disease
DX: R94.31 Abnormal electrocardiogram [ECG] [EKG] (principal)
CPT/HCPCS: 78452; A9500